=== PATIENT | male | born 1940 | race Caucasian/White ===

== ENCOUNTER 2022-10-03 17:15 | Inpatient (IN) | payer OTHER, MEDICARE ==
--- NOTE | 2022-10-03 18:01 | ED ---
General Adult HPI - General Chief complaint: Chest Pain Stated complaint: chest pain, SHOLA Time Seen by Provider: 10/03/22 17:21 Source: EMS Mode of arrival: EMS Limitations: no limitations - History of Present Illness Initial comments: Dictation was produced using [employer] dictation software. please excuse any grammatical, word or spelling errors. Chief Complaint: 82-year-old male presents emergency department for chest pain History of Present Illness: She is 82-year-old male past medical history of myocardial infarction. For the last several days he's been suffering from chest pain states it is a pressure with paresthesias to the left upper extremity. Not associated with diaphoresis. Been nauseated. Patient's been having cough and shortness of breath. When exposed to family was also been sick. Patient having nonproductive cough. Complains of some epigastric abdominal pain. Patient states that his symptoms remind him of a HI he suffered from several years ago though not as severe. Patient states that he does have mild pain at the bedside. The ROS documented in this emergency department record has been reviewed and confirmed by me. Those systems with pertinent positive or negative responses have been documented in the HPI. All other systems are other negative and/or noncontributory. PHYSICAL EXAM: General Impression: Alert and oriented x3, not in acute distress HEENT: Normocephalic atraumatic, extra-ocular movements intact, pupils equal and reactive to light bilaterally, mucous membranes moist. Cardiovascular: Heart regular rate and rhythm Chest: Able to complete full sentences, no retractions, no tachypnea Abdomen: abdomen soft, non-tender, non-distended, no organomegaly Musculoskeletal: Pulses present and equal in all extremities, no peripheral edema Motor: no focal deficits noted Neurological: CN II-XII grossly intact, no focal motor or sensory deficits noted Skin: Intact with no visualized rashes Psych: Normal affect and mood ED course: 82 y Old male presents emergency department for chest symptoms concerning for acute coronary syndrome. He does have respiratory infectious symptoms as well. Vital signs upon arrival are within acceptable limits. EKG shows no signs of obvious ischemia or infarction. We do not have an old EKG for comparison. Patient reported slight improvement of his chest pain with nitroglycerin. Nursing notes and chart review was performed EKG interpreted by me: Ventricular rate 80, sinus rhythm,. O2 39, QRS 106, QTC 473. No GA prolongation, no QTC prolongation, no ST or T-wave changes noted. Solitary biphasic T-wave in V2. Overall, this EKG is nonspecific Serial EKGs were performed showing dynamic changes. EKG performed at 6:[address] segment elevation HI in the anterior precordial leads. Code STEMI was paged. Case discussed with Dr. Nelson. Water Pump Servicer was activated. Patient did receive nitroglycerin and aspirin by prehospital providers. Laboratory evaluation obtained. CBC coag panel metabolic panel is unremarkable. Troponin is elevated 0.131. COVID-19 positive. Was pt. sent in by a medical professional or institution (, PA, SALES STRATEGY MANAGER, urgent care, hospital, or prison...) When possible be specific @ -No Did you speak to anyone other than the patient for history (EMS, parent, family, police, friend...)? What history was obtained from this source @ -EMS Did you review nursing and triage notes (agree or disagree)? Why? @ -I reviewed and agree with nursing and triage notes Were old charts reviewed (outside hosp., previous admission, EMS record, old EKG, old radiological studies, urgent care reports/EKG's, prison records)? Report findings @ -No old charts were reviewed Differential Diagnosis (chest pain, altered mental status, abdominal pain women, abdominal pain men, vaginal bleeding, weakness, fever, dyspnea, syncope, headache, dizziness, GI bleed, back pain, seizure, CVA, palpatations, mental health)? @ -Differential Chest Pain: Stable Angina, Unstable Angina, STEMI, NSTEMI Aortic Dissection, Pneumothorax, Musculoskeletal, Esophageal Spasm GERD, Cholecystitis, Pancreatitis, Zoster, this is not meant to be an all-inclusive list. EKG interpreted by me (3pts min.). @ -As above X-rays interpreted by me (1pt min.). @ -Chest x-ray shows bilateral patchy infiltrates CT interpreted by me (1pt min.). @ -None done U/S interpreted by me (1pt. min.). @ -None done What testing was considered but not performed or refused? (CT, X-rays, U/S, labs)? Why? @ -He was considered however patient's symptoms are atypical for pulmonary embolism or aortic dissection What meds were considered but not given or refused? Why? @ -None Did you discuss the management of the patient with other professionals (professionals i.e. DrBalbir, PA, SALES STRATEGY MANAGER, lab, RT, psych nurse, social media assistant, company accountant, teacher, security officer supervisor, social work case manager)? Give summary @ -Urologist, Dr. Nelson and hospitalist Dr. Gibbs Was smoking cessation discussed for >3mins.? @ -No Was critical care preformed (if so, how long)? @ -yes, , 33 minutes Were there social determinants of health that impacted care today? How? (Homelessness, low income, unemployed, alcoholism, drug addiction, transportation, low edu. Level, literacy, decrease access to med. care, group home, rehab)? @ -No Was there de-escalation of care discussed even if they declined (Discuss DNR or withdrawal of care, Hospice)? DNR status @ -No What co-morbidities impacted this encounter? (DM, HTN, Smoking, COPD, CAD, Cancer, CVA, ARF, Chemo, Hep., AIDS, mental health diagnosis, sleep apnea, morbid obesity)? @ -None Was patient admitted / discharged? Hospital course, mention meds given and route, prescriptions, significant lab abnormalities, going to OR and other pertinent info. @ -See above Undiagnosed new problem with uncertain prognosis? @ -No Drug Therapy requiring intensive monitoring for toxicity (Heparin, Nitro, Insulin, Cardizem)? @ -No Were any procedures done? @ -No Diagnosis/symptom? @ -1. STEMI, 2. COVID-19 Acute, or Chronic, or Acute on Chronic? @ -Acute Uncomplicated (without systemic symptoms) or Complicated (systemic symptoms)? @ - Complicated Side effects of treatment? @ -No Exacerbation, Progression, or Severe Exacerbation? @ -No Poses a threat to life or bodily function? How? (Chest pain, [place], HI, pneumonia, PE, COPD, DKA, ARF, appy, cholecystitis, CVA, Diverticulitis, Homicidal, Suicidal, threat to staff... and all critical care pts) @ -Yes - Related Data Allergies Allergy/AdvReac Type Severity Reaction Status Date / Time No Known Allergies Allergy Verified 10/03/22 17:27 Review of Systems ROS Statement: Those systems with pertinent positive or pertinent negative responses have been documented in the HPI. ROS Other: All systems not noted in ROS Statement are negative. Past Medical History Past Medical History: Diabetes Mellitus, Hypertension, Myocardial Infarction (HI) History of Any Multi-Drug Resistant Organisms: None Reported Past Surgical History: Orthopedic Surgery Past Psychological History: No Psychological Hx Reported, Depression, PTSD Smoking Status: Former smoker Past Alcohol Use History: None Reported Past Drug Use History: None Reported General Exam Limitations: no limitations Course Vital Signs 10/03/22 17:18 Temperature 97.9 F Pulse Rate 80 Respiratory 18 Rate Blood Pressure 175/76 O2 Sat by Pulse 95 Oximetry Medical Decision Making - Lab Data Result diagrams: 10/03/22 17:57 10/03/22 17:57 Lab Results 10/03/22 10/03/22 10/03/22 Range/Units 17:57 17:57 17:57 WBC 4.9 (3.8-10.6) k/uL RBC 4.16 L (4.30-5.90) m/uL Hgb 11.6 L (13.0-17.5) gm/dL Hct 35.1 L (39.0-53.0) % MCV 84.3 (80.0-100.0) fL MCH 28.0 (25.0-35.0) pg MCHC 33.2 (31.0-37.0) g/dL RDW 13.3 (11.5-15.5) % Plt Count 221 (150-450) k/uL MPV 8.5 Neutrophils % 60 % Lymphocytes % 31 % Monocytes % 6 % Eosinophils % 1 % Basophils % 0 % Neutrophils # 3.0 (1.3-7.7) k/uL Lymphocytes # 1.5 (1.0-4.8) k/uL Monocytes # 0.3 (0-1.0) k/uL Eosinophils # 0.0 (0-0.7) k/uL Basophils # 0.0 (0-0.2) k/uL PT 10.2 (9.0-12.0) sec INR 1.0 (<1.2) APTT 21.2 L (22.0-30.0) sec Sodium 135 L (137-145) mmol/L Potassium 3.7 (3.5-5.1) mmol/L Chloride 105 (98-107) mmol/L Carbon Dioxide 20 L (22-30) mmol/L Anion Gap 10 mmol/L BUN 18 (9-20) mg/dL Creatinine 1.09 (0.66-1.25) mg/dL Est GFR (CKD-EPI)AfAm 74 (>60 ml/min/1.73 sqM) Est GFR (CKD-EPI)NonAf 64 (>60 ml/min/1.73 sqM) Glucose 317 H (74-99) mg/dL Calcium 7.7 L (8.4-10.2) mg/dL Magnesium 1.4 L (1.6-2.3) mg/dL Total Bilirubin 0.4 (0.2-1.3) mg/dL AST 28 (17-59) U/L ALT 22 (4-49) U/L Alkaline Phosphatase 150 H (38-126) U/L Troponin I (0.000-0.034) ng/mL Total Protein 6.3 (6.3-8.2) g/dL Albumin 3.4 L (3.5-5.0) g/dL Influenza Type A (PCR) (Not Detectd) Influenza Type B (PCR) (Not Detectd) RSV (PCR) (Not Detectd) SARS-CoV-2 (PCR) (Not Detectd) 10/03/22 10/03/22 Range/Units 17:57 17:57 WBC (3.8-10.6) k/uL RBC (4.30-5.90) m/uL Hgb (13.0-17.5) gm/dL Hct (39.0-53.0) % MCV (80.0-100.0) fL MCH (25.0-35.0) pg MCHC (31.0-37.0) g/dL RDW (11.5-15.5) % Plt Count (150-450) k/uL MPV Neutrophils % % Lymphocytes % % Monocytes % % Eosinophils % % Basophils % % Neutrophils # (1.3-7.7) k/uL Lymphocytes # (1.0-4.8) k/uL Monocytes # (0-1.0) k/uL Eosinophils # (0-0.7) k/uL Basophils # (0-0.2) k/uL PT (9.0-12.0) sec INR (<1.2) APTT (22.0-30.0) sec Sodium (137-145) mmol/L Potassium (3.5-5.1) mmol/L Chloride (98-107) mmol/L Carbon Dioxide (22-30) mmol/L Anion Gap mmol/L BUN (9-20) mg/dL Creatinine (0.66-1.25) mg/dL Est GFR (CKD-EPI)AfAm (>60 ml/min/1.73 sqM) Est GFR (CKD-EPI)NonAf (>60 ml/min/1.73 sqM) Glucose (74-99) mg/dL Calcium (8.4-10.2) mg/dL Magnesium (1.6-2.3) mg/dL Total Bilirubin (0.2-1.3) mg/dL AST (17-59) U/L ALT (4-49) U/L Alkaline Phosphatase (38-126) U/L Troponin I 0.131 H* (0.000-0.034) ng/mL Total Protein (6.3-8.2) g/dL Albumin (3.5-5.0) g/dL Influenza Type A (PCR) Not Detected (Not Detectd) Influenza Type B (PCR) Not Detected (Not Detectd) RSV (PCR) Not Detected (Not Detectd) SARS-CoV-2 (PCR) Detected A (Not Detectd) Disposition Clinical Impression: STEMI (ST elevation myocardial infarction), COVID-19 Disposition: ADMITTED IP TO THIS HOSP Condition: Critical Referrals: [facility],Clinic [Primary Care Provider] - 1-2 days Decision Time: 19:03
[2022-10-03 18:12] LABS: Basophils % (A) 0 %; Eosinophils % (A) 1 %; HCT 35.1 % (39.0-53.0); HGB 11.6 gm/dL (13.0-17.5); Lymphocytes # (A) 1.5 k/uL (1.0-4.8); Lymphocytes % (A) 31 %; MCHC 33.2 g/dL (31.0-37.0); MCV 84.3 fL (80.0-100.0); Mean Platelet Volume 8.5; Monocytes # (A) 0.3 k/uL (0-1.0); Monocytes % (A) 6 %; Neutrophils % (A) 60 %; Platelet Count 221 k/uL (150-450); RBC 4.16 m/uL (4.30-5.90); RDW 13.3 % (11.5-15.5); WBC 4.9 k/uL (3.8-10.6)
[2022-10-03] MEDS ORDERED: ASPIRIN 81 MG PO STA (18:23)
[2022-10-03] MEDS ORDERED: NITROGLYCERIN SL TABS 0.4 MG TAB SUBLINGUAL STA (18:23)
[2022-10-03 18:24] LABS: Albumin 3.4 g/dL (3.5-5.0); Calcium 7.7 mg/dL (8.4-10.2); Magnesium 1.4 mg/dL (1.6-2.3); Potassium 3.7 mmol/L (3.5-5.1); Total Bilirubin 0.4 mg/dL (0.2-1.3); Total Protein 6.3 g/dL (6.3-8.2)
[2022-10-03 18:38] LABS: Partial Thromboplastin Time 21.2 sec (22.0-30.0); Prothrombin Time 10.2 sec (9.0-12.0)
[2022-10-03] MEDS ORDERED: HEPARIN SODIUM 1,000 UN/ML (10ML VL) IV PRN (18:42)
[2022-10-03] MEDS ORDERED: HEPARIN SODIUM 1,000 UN/ML (10ML VL) IV ONE (18:42)
[2022-10-03] MEDS ORDERED: HEPARIN SOD,PORK IN 0.45% NACL 25,000 UNIT in 0.45% NACL 1 250ML.BAG IV SCH (18:45)
--- NOTE | 2022-10-03 18:45 | XR ---
EXAMINATION TYPE: XR chest 2V DATE OF EXAM: 10/03/2022 COMPARISON: NONE HISTORY: Chest pain TECHNIQUE: 2 views FINDINGS: Heart is normal. There is some mild patchy interstitial and airspace infiltrate in the mid and lower lung rivas. No heart failure seen. There are no hilar masses. No pleural effusion. There a re chest leads. IMPRESSION: Mild bilateral patchy infiltrates. No heart failure.
[2022-10-03] MEDS ORDERED: NALOXONE 0.4 MG/ML 1 ML VIAL IV PRN (18:57)
[2022-10-03] MEDS ORDERED: VERAPAMIL 2.5 MG/ML 2 ML AMP ONE (19:15)
[2022-10-03] MEDS ORDERED: LIDOCAINE 2% (PF) 20 MG/ML 5 ML VIAL SQ ONE ×2 (19:18→19:19)
[2022-10-03] MEDS: MIDAZOLAM 2 MG/2 ML VIAL IV ONE ×2 (19:22→20:21)
[2022-10-03] MEDS ORDERED: VERAPAMIL SYRINGE (5 MG/10 ML) INTRAARTER ONE (19:22)
[2022-10-03] MEDS ORDERED: IV FLUID CONTINUATION 1,000 ML IV ONE (19:32)
[2022-10-03] MEDS: HEPARIN SODIUM 1,000 UN/ML (10ML VL) IV ONE ×4 (19:43→20:32)
[2022-10-03] MEDS ORDERED: NITROGLYCERIN 1000MCG/10ML SYRINGE INTRACORON ONE ×2 (20:00→20:18)
[2022-10-03] MEDS ORDERED: CLOPIDOGREL 75 MG TAB ONE (20:04)
[2022-10-03] MEDS ORDERED: CLOPIDOGREL 75 MG TAB PO ONE (20:05)
[2022-10-03] MEDS ORDERED: IOPAMIDOL-370 125ML BTL INJ ONE (20:15)
[2022-10-03] MEDS ORDERED: fentaNYL (PF) 50 MCG/ML 2 ML AMP ONE (20:22)
[2022-10-03] MEDS ORDERED: fentaNYL (PF) 50 MCG/ML 2 ML AMP IV ONE (20:23)
[2022-10-03] MEDS ORDERED: IOPAMIDOL-370 100ML BTL INJ ONE (20:35)
[2022-10-03] MEDS ORDERED: ZOLPIDEM 5 MG TAB PO PRN (20:58)
[2022-10-03] MEDS ORDERED: ATROPINE SULFATE 0.1 MG/ML 10ML SYRINGE IV PRN (20:58)
[2022-10-03] MEDS ORDERED: MAG HYDROX/AL HYDROX/SIMETH 30 ML CUP PO PRN (20:58)
[2022-10-03] MEDS ORDERED: RX INFO: IV CONTRAST WAS GIVEN 1 EACH MISC MISCELLANE PRN (20:58)
[2022-10-03] MEDS ORDERED: NITROGLYCERIN SL TABS 0.4 MG TAB SUBLINGUAL PRN (20:58)
--- NOTE | 2022-10-03 20:58 | P.PRCINT ---
Percutaneous Coronary Int. - Percutaneous Coronary Intervention Percutaneous Coronary Intervention: PROCEDURES PERFORMED: Bilateral coronary angiography, PCI proximal LAD with 2.25 x 18mm Xience LUCY, post dilated with a 2.25 NC balloon, balloon angioplasty diagonal 1 branch with a 2.0 balloon INDICATION: NSTEMI with ongoing chest pain PROCEDURE: After the risks, benefits and alternatives of the above mentioned procedure explained in detail with the patient, informed consent was obtained. Patient had already been taken to the catheterization lab and prepped and draped in usual fashion. A 6-[place] sheath had already been placed in the right radial artery. The culprit lesion appeared to be the LAD and therefore PCI of the LAD was recommended. A 6-[place] CLS 3.0 guide was used to engage the left main. A 0.014 BMW wire was advanced into the distal LAD and then a second 0.014 BMW wire was advanced into the distal diagonal branch. There was disease of the ostium of the diagonal branch and therefore decision was made to attempt balloon angioplasty and provisional stenting. Balloon angioplasty was performed of the LAD with a 2.0 x 12 mm balloon and then of the diagonal 1 branch with a 2.0 x 12 mm balloon. Next IVUS was performed which showed diffuse disease throughout the entire LAD with reference vessel 2.0 x 2.25 mm of the mid LAD. Left main minimal luminal area of 3.9 mm. Next a 2.25 x 18 mm Xience LUCY was placed from the origin of the LAD. There was decreased flow in the diagonal branch however given diffusely diseased and small caliber LAD risks of trying to open up diagonal branch felt to be greater than any benefit. Next a 2.25 x 12 mm noncompliant balloon was used to post dilate the stent. IVUS was performed with some difficulty advancing with all the way to the distal end of the stent secondary to calcium however had good stent apposition. The wire was pulled and final angiograms were performed. Preintervention there is 90% stenosis and MARYANN-3 flow and postintervention there is less than 10% stenosis with MARYANN 3 flow. Patient did have ongoing chest pain was was felt most likely related to the diagonal branch however given ongoing chest pain repeat angiography was performed of the RCA which showed more of a chronic PDA lesion and therefore deferred at this time. The right radial sheath was removed and a TR band was placed with hemostasis achieved. The patient tolerated the procedure well. Patient was transported back to the post catheterization holding area in stable condition. Conscious Sedation: Patient was monitored under the direct supervision of vision of myself for conscious sedation using Versed and fentanyl for a total duration of 56 minutes HEMODYNAMICS: Aorta: 156/76 SELECTIVE CORONARY ARTERIOGRAPHY: LEFT MAIN: The left main is a large caliber vessel which bifurcates into the LAD and circumflex. There is diffuse approximately 30-50% stenosis of the left main with minimal luminal area of 3.9 mm on IVUS. LEFT ANTERIOR DESCENDING CORONARY ARTERY: LAD is a large caliber vessel which wraps around to the apex. There is diffuse calcified proximal LAD 90% stenosis. Diagonal 1 and a small caliber and has a proximal 80% stenosis in his diffusely disease. LEFT CIRCUMFLEX CORONARY ARTERY: Left circumflex is a small caliber vessel. There is diffuse mild disease. There is a high OM1 branch which has a proximal 40-50% stenosis. RIGHT CORONARY ARTERY: The right coronary artery is a small caliber vessel which gives off a PDA and PLV branch and is the dominant vessel. There is a proximal PDA 70-80% stenosis. FINAL IMPRESSION: 1. CAD as described above including left main 30-50% with MLA 3.9 mm, proximal LAD 90% stenosis, diagonal one 80% stenosis, OM1 40-50% stenosis, PDA 70-80% stenosis 2. S/p PCI proximal LAD with 2.25 x 18mm Xience LUCY, post dilated with a 2.25 NC balloon, balloon angioplasty diagonal 1 branch with a 2.0 balloon PLAN: 1. Aggressive risk factor modification per most recent ACC/AHA guidelines. 2. Continue dual antiplatelets with aspirin and Plavix for 12 months.
[2022-10-03 21:09] LABS: Glucose,Whole Blood 311 mg/dL (70-110)
[2022-10-03] MEDS ORDERED: lisinopriL 10 MG TAB PO STA (22:55)
[2022-10-03] MEDS: SODIUM CHLORIDE 0.9% 1,000 ML IV SCH (23:01)
--- NOTE | 2022-10-04 00:41 | P.HPIM ---
History of Present Illness H&P Date: 10/03/22 The patient is an 82-year-old male with a PMH of type II DM, hypertension, hyperlipidemia who had presented to the emergency room with complaints of chest discomfort. The patient reported that he had been having intermittent substernal pressure-like chest discomfort with radiation to his arms over the past 4-5 days. In the emergency room, he was noted to have ongoing chest discomfort with a dynamic EKG changes. The case was discussed by the ED physician with cardiology water conservation specialist who recommended abdomen code STEMI. The patient was subsequently taken to the [facility] where he underwent PCI to p roximal LAD with a LUCY. The patient was seen postoperatively. He reported resolution of his chest discomfort. The patient also stated that over the past 1 week, he has been experiencing cough productive of whitish phlegm and that his daughter had also been sick with similar symptoms. Denied fever or chills. Laboratory evaluation in the emergency room was remarkable for COVID positive, troponin and 0.131, magnesium 1.4, glucose 317. Chest x-ray revealed mild bilateral patchy infiltrates. Review of systems: Pertinent positives and negatives as discussed in HPI, a complete review of systems was performed and all other systems are negative. Physical examination: General: non toxic, no distress, appears at stated age, normal weight Derm: no unusual rashes/lesions, warm Head: atraumatic, normocephalic, symmetric Eyes: EOMI, no lid lag, anicteric sclera, pupils equal round reactive to light ENT: Nose and ears atraumatic Neck: No cervical lymphadenopathy, trachea midline, supple Mouth: no lip lesion, mucus membranes moist Cardiovascular: S1S2 reg, no murmur, positive dorsalis pedis pulse bilateral, no edema Lungs: CTA bilateral, no rhonchi, no rales, no accessory muscle use Abdominal: soft, nontender to palpation, no guarding Ext: muscle strength 5 out of 5 in all 4 extremities grossly, no gross muscle atrophy, no contractures, right wrist TR band in place Neuro: CN II-XI grossly intact, no gross focal neuro deficits Psych: Alert, oriented, appropriate affect Assessment/plan STEMI status post PCI to LAD -Cardiology recommendations appreciated -Continue with aspirin and Plavix -Cardiac monitoring Hypomagnesemia -Replace and monitor COVID-19 pneumonia -Not requiring supplemental oxygen at this time -Monitor for now Chronic conditions: Type II DM, hypertension, HLD -Insulin sliding scale blood glucose monitoring -Continue with home meds DVT prophylaxis -Heparin subcu The patient is admitted with an anticipated greater than 2 midnight stay for evaluation of STEMI CODE STATUS: Full Code Discussed with: Patient Anticipated discharge date: 2-[address]: Home Past Medical History Past Medical History: CVA/TIA, Diabetes Mellitus, Hypertension, Myocardial Infarction ([place]) Additional Past Medical History / Comment(s): Stroke in December of 2021 Last Myocardial Infarction Date:: 10/03/22 History of Any Multi-Drug Resistant Organisms: None Reported Past Surgical History: Orthopedic Surgery Additional Past Surgical History / Comment(s): Urethral surgery-unsure of date Past Anesthesia/Blood Transfusion Reactions: No Reported Reaction Past Psychological History: No Psychological Hx Reported, Depression, PTSD Smoking Status: Former smoker Past Alcohol Use History: None Reported Past Drug Use History: None Reported - Past Family History Father Family Medical History: Hypertension Medications and Allergies Home Medications Medication Instructions Recorded Confirmed Type Aspirin [[place] Aspirin EC] 81 mg PO DAILY 10/03/22 10/03/22 History Atorvastatin Calcium [Lipitor] 80 mg PO HS 10/03/22 10/03/22 History Carboxymethylcellulose Sodium 1 drop BOTH EYES QID 10/03/22 10/03/22 History [Thera Tears] DULoxetine HCL [Cymbalta] 30 mg PO DAILY 10/03/22 10/03/22 History Erythromycin Ophth Oint (1 gm) 1 applic TOPICAL HS 10/03/22 10/03/22 History [Ilotycin Ophth Oint (1 gm)] Finasteride [Proscar] 5 mg PO DAILY 10/03/22 10/03/22 History Glimepiride [Amaryl] 1 mg PO DAILY 10/03/22 10/03/22 History Insulin Glargine,Hum.rec.anlog 15 units SQ DAILY 10/03/22 10/03/22 History [Insulin Glargine Solostar] Magnesium Oxide 400 mg PO DAILY 10/03/22 10/03/22 History Metoprolol Succinate [Toprol XL] 100 mg PO DAILY 10/03/22 10/03/22 History Omeprazole [PriLOSEC] 20 mg PO DAILY 10/03/22 10/03/22 History Sennosides/Docusate Sodium [Senna 1 tab PO DAILY PRN 10/03/22 10/03/22 History Plus 8.6-50 mg Tablet] Tamsulosin HCl [Flomax] 0.8 mg PO W/SUPPER 10/03/22 10/03/22 History glipiZIDE [Glucotrol] 10 mg PO DAILY 10/03/22 10/03/22 History lisinopriL [Zestril] 10 mg PO DAILY 10/03/22 10/03/22 History metFORMIN HCL 1,000 mg PO BID 10/03/22 10/03/22 History Allergies Allergy/AdvReac Type Severity Reaction Status Date / Time No Known Allergies Allergy Verified 10/03/22 17:27 Physical Exam Vitals: Vital Signs Temp Pulse Resp BP Pulse Ox 10/04/22 00:00 97.4 F L 77 26 H 131/104 97 10/03/22 23:30 79 18 173/85 96 10/03/22 23:00 92 18 174/74 96 10/03/22 22:30 80 89 H 165/80 95 10/03/22 22:00 77 19 162/79 97 10/03/22 21:30 98.0 F 75 15 163/87 95 10/03/22 19:00 83 20 172/77 96 10/03/22 18:30 79 16 159/74 94 L 10/03/22 18:00 81 19 158/67 92 L 10/03/22 17:37 81 30 H 175/76 94 L 10/03/22 17:18 97.9 F 80 18 175/76 95 Intake and Output 10/03/22 10/03/22 10/04/22 14:59 22:59 06:59 Intake Total 160 40 Output Total 300 200 Balance -140 -160 Intake: IV 40 40 Sodium Chloride 0.9% 1, 40 40 000 ml @ 20 mls/hr IV . Q24H ON LICENSE OF [facility] Rx#:[id number] Oral 120 Output: Urine 300 200 Other: Voiding Method Urinal Urinal # Voids 1 1 Weight 70.307 kg Results CBC & Chem 7: 10/03/22 17:57 10/03/22 17:57 Labs: Abnormal Lab Results - Last 24 Hours (Table) 10/03/22 10/03/22 10/03/22 Range/Units 17:57 17:57 17:57 RBC 4.16 L (4.30-5.90) m/uL Hgb 11.6 L (13.0-17.5) gm/dL Hct 35.1 L (39.0-53.0) % APTT 21.2 L (22.0-30.0) sec Sodium 135 L (137-145) mmol/L Carbon Dioxide 20 L (22-30) mmol/L Glucose 317 H (74-99) mg/dL POC Glucose (mg/dL) (70-110) mg/dL Calcium 7.7 L (8.4-10.2) mg/dL Magnesium 1.4 L (1.6-2.3) mg/dL Alkaline Phosphatase 150 H (38-126) U/L Troponin I (0.000-0.034) ng/mL Albumin 3.4 L (3.5-5.0) g/dL SARS-CoV-2 (PCR) (Not Detectd) 10/03/22 10/03/22 10/03/22 Range/Units 17:57 17:57 21:08 RBC (4.30-5.90) m/uL Hgb (13.0-17.5) gm/dL Hct (39.0-53.0) % APTT (22.0-30.0) sec Sodium (137-145) mmol/L Carbon Dioxide (22-30) mmol/L Glucose (74-99) mg/dL POC Glucose (mg/dL) 311 H (70-110) mg/dL Calcium (8.4-10.2) mg/dL Magnesium (1.6-2.3) mg/dL Alkaline Phosphatase (38-126) U/L Troponin I 0.131 H* (0.000-0.034) ng/mL Albumin (3.5-5.0) g/dL SARS-CoV-2 (PCR) Detected A (Not Detectd) Thrombosis Risk Factor Assmnt - Choose All That Apply Each Factor Represents 1 point: Acute [place] Each Risk Factor Represents 3 Points: Age 75 years or older Thrombosis Risk Factor Assessment Total Risk Factor Score: 4 Thrombosis Risk Factor Assessment Level: Moderate Risk
[2022-10-04] MEDS: MAGNESIUM SULFATE-D5W PMX 1 GM in DEXTROSE/WATER 1 100ML.BAG IVPB SCH ×2 (02:27→03:28)
[2022-10-04 06:37] LABS: Glucose,Whole Blood 337 mg/dL (70-110)
[2022-10-04] MEDS: INSULIN ASPART (NovoLOG) 100 UNIT/ML VIAL SQ SCH ×4 (06:41→19:54)
[2022-10-04] MEDS ORDERED: lisinopriL 10 MG TAB PO SCH (09:00)
[2022-10-04] MEDS: CLOPIDOGREL 75 MG TAB PO SCH (09:08)
[2022-10-04] MEDS: FINASTERIDE 5 MG TAB PO SCH (09:08)
[2022-10-04] MEDS: INSULIN DETEMIR (LEVEMIR) 100 UNIT/ML SYR SQ SCH (09:08)
[2022-10-04] MEDS: ASPIRIN 81 MG PO SCH (09:08)
[2022-10-04] MEDS: DULoxetine HCL 30 MG CAPSULE.DR PO SCH (09:08)
[2022-10-04] MEDS: METOPROLOL SUCCINATE (ER) 50 MG TAB.ER.24H PO SCH ×2 (09:10→19:55)
[2022-10-04] MEDS: PANTOPRAZOLE 40 MG TABLET PO SCH (09:10)
--- NOTE | 2022-10-04 11:16 | P.PN ---
Subjective Progress Note Date: 10/04/22 Patient is an 82-year-old male with DM II, hypertension, hyperlipidemia who h emergency room with complaints of chest discomfort. In the emergency room, he was noted to have ongoing chest discomfort with a dynamic EKG changes. A CODE STEMI was activated and the patient was taken to [facility] where he underwent PCI to proximal LAD with a LUCY. Laboratory evaluation in the emergency room was mack rkable for COVID positive, troponin and 0.131, magnesium 1.4, glucose 317. Chest x-ray revealed mild bilateral patchy infiltrates. He was admitted to the ICU after stent placement. Patient seen and examined at bedside. He is now chesy pain free. He has no unusual shortness of breaht. He denies any nausea or vomiting. He is worried that his daughter also has covid and I encouraged him to get her tested. General: ill appearing, no distress, appears at stated age Derm: warm, dry Head: atraumatic, normocephalic, symmetric Eyes: EOMI, no lid lag, anicteric sclera Mouth: no lip lesion, mucus membranes moist Cardiovascular: S1S2 reg, no murmur, positive posterior tibial pulse bilateral, Lungs: Decreased bs bilateral, no rhonchi, no rales , no accessory muscle use Abdominal: soft, nontender to palpation, no guarding, no appreciable organomegaly Ext: no gross muscle atrophy, no edema, no contractures Neuro: CN II-XI grossly intact, no focal neuro deficits Psych: Alert, oriented, appropriate affect Assessment/plan: STEMI status post PCI to LAD -Cardiology recommendations appreciated -ASA, plavix, statin - await echo DM 2 with hyperglycemia - SSI - resume levemir - hold metformin,amaryl, glucotrol - follow BS - check A1C Hypomagnesemia -Replace and monitor COVID-19 pneumonia -Not requiring supplemental oxygen at this time -Monitor for now Chronic conditions: hypertension, HLD - metoprolol, lisinopril, follow BP DVT prophylaxis: lovenox Discussed with: patient, nursing Anticipated discharge: pending clinical course Anticipated discharge place: pending clinical course A total of 35 minutes was spent on the care of this complex patient more than 50% of the time was spent in counseling and care coordination. Objective - Vital Signs Vital signs: Vital Signs Temp 98.2 F 10/04/22 04:00 Pulse 63 10/04/22 07:00 Resp 16 10/04/22 07:00 BP 129/55 10/04/22 07:00 Pulse Ox 93 L 10/04/22 07:00 FiO2 Intake & Output 10/03/22 10/04/22 10/04/22 18:59 06:59 18:59 Intake Total 520 20 Output Total 800 0 Balance -280 20 Weight 70.307 kg 79 kg Intake: IV 200 20 Sodium Chloride 0.9% 1, 200 20 000 ml @ 20 mls/hr IV . Q24H [facility] Rx#:[id number] Intake, IV Titration 200 Amount Magnesium Sulfate-D5w Pmx 200 1 gm In Dextrose/Water 1 100ml.bag @ 100 mls/hr IVPB Q1H [facility] Rx#: [id number] Oral 120 Output: Urine 800 0 Other: Voiding Method Urinal # Voids 1 - Labs CBC & Chem 7: 10/03/22 17:57 10/04/22 05:45 Labs: Abnormal Lab Results - Last 24 Hours (Table) 10/03/22 10/03/22 10/03/22 Range/Units 17:57 17:57 17:57 RBC 4.16 L (4.30-5.90) m/uL Hgb 11.6 L (13.0-17.5) gm/dL Hct 35.1 L (39.0-53.0) % APTT 21.2 L (22.0-30.0) sec Sodium 135 L (137-145) mmol/L Chloride (98-107) mmol/L Carbon Dioxide 20 L (22-30) mmol/L Glucose 317 H (74-99) mg/dL POC Glucose (mg/dL) (70-110) mg/dL Calcium 7.7 L (8.4-10.2) mg/dL Magnesium 1.4 L (1.6-2.3) mg/dL Alkaline Phosphatase 150 H (38-126) U/L Troponin I (0.000-0.034) ng/mL Albumin 3.4 L (3.5-5.0) g/dL SARS-CoV-2 (PCR) (Not Detectd) 10/03/22 10/03/22 10/03/22 Range/Units 17:57 17:57 21:08 RBC (4.30-5.90) m/uL Hgb (13.0-17.5) gm/dL Hct (39.0-53.0) % APTT (22.0-30.0) sec Sodium (137-145) mmol/L Chloride (98-107) mmol/L Carbon Dioxide (22-30) mmol/L Glucose (74-99) mg/dL POC Glucose (mg/dL) 311 H (70-110) mg/dL Calcium (8.4-10.2) mg/dL Magnesium (1.6-2.3) mg/dL Alkaline Phosphatase (38-126) U/L Troponin I 0.131 H* (0.000-0.034) ng/mL Albumin (3.5-5.0) g/dL SARS-CoV-2 (PCR) Detected A (Not Detectd) 10/04/22 10/04/22 Range/Units 05:45 06:36 RBC (4.30-5.90) m/uL Hgb (13.0-17.5) gm/dL Hct (39.0-53.0) % APTT (22.0-30.0) sec Sodium 133 L (137-145) mmol/L Chloride 108 H (98-107) mmol/L Carbon Dioxide 19 L (22-30) mmol/L Glucose 303 H (74-99) mg/dL POC Glucose (mg/dL) 337 H (70-110) mg/dL Calcium 7.0 L (8.4-10.2) mg/dL Magnesium (1.6-2.3) mg/dL Alkaline Phosphatase (38-126) U/L Troponin I (0.000-0.034) ng/mL Albumin (3.5-5.0) g/dL SARS-CoV-2 (PCR) (Not Detectd)
--- NOTE | 2022-10-04 11:39 | PN ---
PROGRESS NOTE SUBJECTIVE: This is an 82-year-old gentleman who is admitted to hospital with multiple medical problems including type 2 diabetes, hypertension, dyslipidemia, who presented to us with chest pain for the last 4-5 days. ER physician has made a diagnosis of STEMI and STEMI Team was alerted. I met the patient in the label pinker and he underwent cardiac catheterization with angioplasty of the proximal LAD with a drug-eluting stent. He also has a tight lesion in the PDA, has small caliber and heavily calcified vessels. This morning, he appears comfortable at rest, stable hemodynamically. OBJECTIVE: VITAL SIGNS: Heart rate is 63 beats, blood pressure is 121/55, and respiratory rate 16. CHEST: Reveals good air entry bilaterally. HEART: Reveals first and second heart sounds. No gallop. EXTREMITIES: Did not reveal any edema. Peripheral pulses are palpable. He tested positive for COVID. Lab showed a potassium of 4, creatinine is 1.1. MEDICATIONS: Patient is currently on, 1. Aspirin. 2. Plavix. 3. Insulin. 4. Toprol. 5. Zestril. ASSESSMENT: Acute coronary syndrome, status post catheterization and angioplasty of the LAD. PLAN: The patient is on optimal medical therapy. I will check an echocardiogram on him. We can transfer him out of ICU later this afternoon. MMODL / IJN: [id number] /
[2022-10-04 11:52] LABS: Glucose,Whole Blood 327 mg/dL (70-110)
--- NOTE | 2022-10-04 11:57 | CONS ---
CONSULTATION CHIEF COMPLAINT: Chest pain. HISTORY OF PRESENT ILLNESS: This is an 82-year-old gentleman with multiple medical problems, including coronary artery disease, hypertension, diabetes, dyslipidemia, who has severe hearing impairment, presented to the hospital with chest pain. The chest discomfort has been going on for the last 4 to 5 days. It is substernal, pressure-like sensation that radiates to both upper extremities. He had an EKG that showed sinus rhythm with poor R- wave progression, left axis deviation, and evidence of prior anteroseptal myocardial infarction. Admission troponin was 0.1, hemoglobin was 11.6. He tested positive for coronavirus. On his initial presentation, emergency room doctor has made a diagnosis of STEMI and STEMI team was alerted and I met the patient for the first time in the label stamper. The patient appears comfortable at rest and was hemodynamically stable. The patient was also complaining of cough and shortness of breath. PAST MEDICAL HISTORY: Significant for hypertension, diabetes, dyslipidemia. MEDICATIONS: Include insulin, aspirin, Flomax, Toprol, Zestril, metformin, Amaryl, Cymbalta, Lipitor. ALLERGIES: There are no known drug allergies. FAMILY HISTORY AND SOCIAL HISTORY: Negative for premature coronary artery disease and smoking. REVIEW OF SYSTEMS: A review of systems has been performed. Pertinent as documented. PHYSICAL EXAMINATION: VITAL SIGNS: On exam, heart rate is 63 beats per minute, blood pressure is 130/55, respiratory rate is 16. CHEST: Reveals good air entry bilaterally. HEART: Reveals first and second heart sounds. No gallop. Has a systolic murmur at the left lower sternal border. ABDOMEN: Soft. EXTREMITIES: Exam of extremities revealed mild edema. LABORATORY DATA: Labs have been reviewed. EKG is as described above. ASSESSMENT: 1. Chest pain, rule out significant obstructive coronary artery disease. 2. Coronavirus infection. PLAN: The patient does not have ST-segment elevation NH. He will undergo emergent cardiac catheterization and revascularization if necessary. We will obtain a 2D echo in the morning. Primary will manage his positive coronavirus test. MMODL / IJN: [id number] /
--- NOTE | 2022-10-04 11:57 | CC ---
CARDIAC CATHETERIZATION REPORT INDICATION: Acute coronary syndrome. DESCRIPTION OF PROCEDURE: After obtaining informed consent, left heart catheterization and coronary angiogram were performed via the right radial artery. The patient received moderate conscious sedation. Total sedation time was 22 minutes. He received 5 mg of verapamil and had already received heparin. Right radial artery access was obtained using modified Seldinger technique, and catheters and wires were manipulated into the ascending aorta under fluoroscopic guidance. Hemodynamics were also obtained. FINDINGS: Hemodynamics: Left ventricular end-diastolic pressure is 18 mm. There is no significant gradient across the aortic valve. Left ventriculogram: Left ventriculogram was not performed. Angiographic data: 1. Right coronary artery: Right coronary artery is a small caliber vessel, appears diffusely diseased. The PDA has a long segment of narrowing. At its worst, it seems to be an 80% to 90% stenosis. 2. Left main coronary artery appears calcified and divides into LAD and circumflex coronary artery. There is a lesion in the LAD in the proximal portion, that also involved the ostium of the diagonal branch, but the vessel is diffusely diseased and a fairly small-caliber vessel. CONCLUSIONS: 1. Long segment of stenosis involving LAD. 2. Chronic lesion within the PDA. 3. Calcified and diffusely diseased vessels. PLAN: The patient will undergo angioplasty with stent placement of LAD. MMODL / IJN: [id number] /
[2022-10-04] MEDS: ENOXAPARIN 40 MG/0.4 ML SYRINGE SQ SCH (12:02)
--- NOTE | 2022-10-04 13:27 | CA ---
Transthoracic Echo Report Name: Gregg Fraser Age: 82 Gender: M : 1940 Exam Date: 10/04/2022 08:31 Exam Location: [facility] Ht (in): 64 Wt (lb): 150 Ordering Physician: Bear Nelson MD ([id number]) Attending/Referring Phys: Omar CHEN Radiation Oncologist Pauly Feldman RDCS Procedure CPT: Indications: stemi Cardiac Hx: PT is Covid Positive. Technical Quality: Contrast 1: Total Dose (mL): Contrast 2: N/A Total Dose (mL): MEASUREMENTS (Male / Female) Normal Values 2D ECHO LV Diastolic Diameter PLAX 4.2 cm 4.2 - 5.9 / 3.9 - 5.3 cm LV Systolic Diameter PLAX 3.5 cm IVS Diastolic Thickness 1.2 cm 0.6 - 1.0 / 0.6 - 0.9 cm LVPW Diastolic Thickness 1.3 cm 0.6 - 1.0 / 0.6 - 0.9 cm LV Relative Wall Thickness 0.6 RV Internal Dim ED PLAX 3.2 cm FINDINGS Left Ventricle Mildly increased septal wall thickness. Left ventricular ejection fraction is estimated at 55 %. Left ventricular cavity size normal. Right Ventricle Normal right ventricular size and function. Right Atrium Normal right atrial size. Left Atrium Normal left atrial size. Mitral Valve Structurally normal mitral valve. Mild mitral regurgitation. Aortic Valve Trileaflet aortic valve. Tricuspid Valve Structurally normal tricuspid valve. Trace to mild tricuspid regurgitation. Pulmonic Valve Structurally normal pulmonic valve. Pericardium Normal pericardium. Aorta Normal size aortic root and proximal ascending aorta. CONCLUSIONS Normal LV systolic function Mild mitral regurgitation Anterior wall is hypokinetic Previewed by: Dr. Bear Nelson MD (Electronically Signed) Final Date: 04 October 2022 13:26
[2022-10-04 14:17] VITALS: BMI 29.0
[2022-10-04 16:24] LABS: Glucose,Whole Blood 129 mg/dL (70-110)
[2022-10-04] MEDS ORDERED: lisinopriL 10 MG TAB PO STA (16:51)
[2022-10-04] MEDS: TAMSULOSIN 0.4 MG CAP.ER.24H PO SCH (17:32)
[2022-10-04] MEDS: SODIUM CHLORIDE 0.9% 1,000 ML IV SCH (19:43)
[2022-10-04 19:52] LABS: Glucose,Whole Blood 171 mg/dL (70-110)
[2022-10-05 06:04] LABS: HCT 31.6 % (39.0-53.0); HGB 10.2 gm/dL (13.0-17.5); MCH 27.4 pg (25.0-35.0); MCHC 32.4 g/dL (31.0-37.0); MCV 84.5 fL (80.0-100.0); Mean Platelet Volume 8.1; Platelet Count 236 k/uL (150-450); RBC 3.74 m/uL (4.30-5.90); RDW 13.1 % (11.5-15.5); WBC 4.5 k/uL (3.8-10.6)
[2022-10-05 06:17] LABS: Calcium 7.5 mg/dL (8.4-10.2); Potassium 4.4 mmol/L (3.5-5.1)
[2022-10-05 06:28] LABS: Glucose,Whole Blood 109 mg/dL (70-110)
[2022-10-05] MEDS: PANTOPRAZOLE 40 MG TABLET PO SCH (06:34)
[2022-10-05] MEDS: INSULIN ASPART (NovoLOG) 100 UNIT/ML VIAL SQ SCH ×4 (06:34→20:10)
[2022-10-05] MEDS: lisinopriL 20 MG TAB PO SCH (09:25)
[2022-10-05] MEDS: ENOXAPARIN 40 MG/0.4 ML SYRINGE SQ SCH (09:25)
[2022-10-05] MEDS: INSULIN DETEMIR (LEVEMIR) 100 UNIT/ML SYR SQ SCH (09:25)
[2022-10-05] MEDS: ASPIRIN 81 MG PO SCH (09:25)
[2022-10-05] MEDS: CLOPIDOGREL 75 MG TAB PO SCH (09:25)
[2022-10-05] MEDS: METOPROLOL SUCCINATE (ER) 50 MG TAB.ER.24H PO SCH ×2 (09:26→20:10)
[2022-10-05] MEDS: DULoxetine HCL 30 MG CAPSULE.DR PO SCH (09:26)
[2022-10-05] MEDS: FINASTERIDE 5 MG TAB PO SCH (09:26)
--- NOTE | 2022-10-05 11:12 | P.PN ---
Subjective Progress Note Date: 10/05/22 Patient is an 82-year-old male with DM II, hypertension, hyperlipidemia who h emergency room with complaints of chest discomfort. In the emergency room, he was noted to have ongoing chest discomfort with a dynamic EKG changes. A CODE STEMI was activated and the patient was taken to [facility] where he underwent PCI to proximal LAD with a LUCY. Laboratory evaluation in the emergency room was mack rkable for COVID positive, troponin and 0.131, magnesium 1.4, glucose 317. Chest x-ray revealed mild bilateral patchy infiltrates. He was admitted to the ICU after stent placement. ECHO with EF 55%. He continued to be stable on room air. Patient seen and examined at bedside. He is chest pain free, still with cough, no shortness of breath, no nausea. General: non toxic, no distress, appears at stated age Derm: warm, dry Head: atraumatic, normocephalic, symmetric Eyes: EOMI, no lid lag, anicteric sclera Mouth: no lip lesion, mucus membranes moist Cardiovascular: S1S2 reg, no murmur, positive posterior tibial pulse bilateral, Lungs: Decreased bs bilateral, no rhonchi, no rales , no accessory muscle use Abdominal: soft, nontender to palpation, no guarding, no appreciable organomegaly Ext: no gross muscle atrophy, no edema, no contractures Neuro: CN II-XI grossly intact, no focal neuro deficits Psych: Alert, oriented, appropriate affect Assessment/plan: STEMI status post PCI to LAD -Cardiology recommendations appreciated -ASA, plavix, statin - echo with preserved EF DM 2 with hyperglycemia - BS reviewed max in 24 hours is ~171 - SSI - levemir - hold metformin,amaryl, glucotrol - follow BS - check A1C Hypomagnesemia, resolved COVID-19 pneumonia -Not requiring supplemental oxygen at this time -Monitor for now Chronic conditions: hypertension, HLD - metoprolol, lisinopril, follow BP DVT prophylaxis: lovenox Discussed with: patient, nursing Anticipated discharge: pending clinical course Anticipated discharge place: pending clinical course A total of 35 minutes was spent on the care of this complex patient more than 50% of the time was spent in counseling and care coordination. Objective - Vital Signs Vital signs: Vital Signs Temp 98.0 F 10/05/22 04:00 Pulse 63 01/15/23 04:00 Resp 14 10/05/22 04:00 BP 114/58 10/05/22 04:00 Pulse Ox 100 10/05/22 04:00 FiO2 Intake & Output 10/04/22 10/05/22 10/05/22 18:59 06:59 18:59 Intake Total 1790 240 Output Total 1000 300 Balance 790 -60 Weight 79 kg 78.6 kg Intake: IV 240 Sodium Chloride 0.9% 1, 240 000 ml @ 20 mls/hr IV . Q24H [facility] Rx#:[id number] Oral 1550 240 Output: Urine 1000 300 Other: Voiding Method Urinal Toilet Urinal # Voids 1 1 - Labs CBC & Chem 7: 10/05/22 05:35 10/05/22 05:35 Labs: Abnormal Lab Results - Last 24 Hours (Table) 10/04/22 10/04/22 10/04/22 Range/Units 11:50 16:23 19:51 RBC (4.30-5.90) m/uL Hgb (13.0-17.5) gm/dL Hct (39.0-53.0) % Sodium (137-145) mmol/L Chloride (98-107) mmol/L Carbon Dioxide (22-30) mmol/L Creatinine (0.66-1.25) mg/dL POC Glucose (mg/dL) 327 H 129 H 171 H (70-110) mg/dL Calcium (8.4-10.2) mg/dL 10/05/22 10/05/22 Range/Units 05:35 05:35 RBC 3.74 L (4.30-5.90) m/uL Hgb 10.2 L (13.0-17.5) gm/dL Hct 31.6 L (39.0-53.0) % Sodium 132 L (137-145) mmol/L Chloride 108 H (98-107) mmol/L Carbon Dioxide 21 L (22-30) mmol/L Creatinine 1.27 H (0.66-1.25) mg/dL POC Glucose (mg/dL) (70-110) mg/dL Calcium 7.5 L (8.4-10.2) mg/dL
[2022-10-05 11:43] LABS: Glucose,Whole Blood 225 mg/dL (70-110)
[2022-10-05 17:33] LABS: Glucose,Whole Blood 220 mg/dL (70-110)
[2022-10-05] MEDS: TAMSULOSIN 0.4 MG CAP.ER.24H PO SCH (17:42)
--- NOTE | 2022-10-05 19:25 | PN ---
PROGRESS NOTE SUBJECTIVE: Gregg is an 82-year-old gentleman that presented to hospital with acute coronary syndrome and underwent cardiac catheterization and angioplasty of LAD. He has severe hearing impairment, but is free of symptoms. OBJECTIVE: VITAL SIGNS: Afebrile, heart rate is 63 beats per minute, blood pressure 114/58, respiratory rate is 18, O2 saturation is 100% on room air. NECK: There is no jugular venous distention. CHEST: Reveals good air entry bilaterally. HEART: Reveals first and second heart sounds. No gallop. ABDOMEN: Soft. EXTREMITIES: Did not reveal any edema. Peripheral pulses are felt. LABORATORY DATA: Labs show a hemoglobin of 10, potassium is 4.4, creatinine is 1.2. ASSESSMENT: Acute coronary syndrome, status post catheterization and angioplasty of the LAD. PLAN: The patient will continue the aspirin, Plavix, Zestril, Toprol-XL, and hopefully home tomorrow. He has a lesion in the PDA that we are going to manage medically at this time. MMODL / IJN: [id number] /
[2022-10-05] MEDS: SODIUM CHLORIDE 0.9% 1,000 ML IV SCH (19:32)
[2022-10-05 19:38] LABS: Glucose,Whole Blood 279 mg/dL (70-110)
[2022-10-06 06:09] LABS: HCT 31.1 % (39.0-53.0); HGB 10.1 gm/dL (13.0-17.5); MCH 27.1 pg (25.0-35.0); MCHC 32.5 g/dL (31.0-37.0); MCV 83.4 fL (80.0-100.0); Mean Platelet Volume 8.1; Platelet Count 254 k/uL (150-450); RBC 3.72 m/uL (4.30-5.90); RDW 13.1 % (11.5-15.5)
[2022-10-06 06:21] LABS: Glucose,Whole Blood 124 mg/dL (70-110)
[2022-10-06 06:23] LABS: Calcium 7.7 mg/dL (8.4-10.2); Potassium 4.9 mmol/L (3.5-5.1)
[2022-10-06] MEDS: INSULIN ASPART (NovoLOG) 100 UNIT/ML VIAL SQ SCH ×4 (06:24→20:15)
[2022-10-06] MEDS: PANTOPRAZOLE 40 MG TABLET PO SCH (06:26)
--- NOTE | 2022-10-06 07:52 | P.PN ---
Progress Note - Text Progress Note Date: 10/06/22 This is an 82-year-old gentleman who was admitted to the hospital with acute coronary syndrome. He underwent a heart catheterization and stenting of the LAD and he was found to have nonobstructive disease involving the RCA and LCx. October [id number] The patient was seen and evaluated this morning. He remains asymptomatic. He remains hemodynamics stable. He is on dual antiplatelet therapy and statin. He is tested positive for cold that. From a cardiovascular standpoint of view, we will continue the current medical regimen. The patient can be transferred into the third floor.
[2022-10-06] MEDS: ENOXAPARIN 40 MG/0.4 ML SYRINGE SQ SCH (08:47)
[2022-10-06] MEDS: CLOPIDOGREL 75 MG TAB PO SCH (08:47)
[2022-10-06] MEDS: ASPIRIN 81 MG PO SCH (08:47)
[2022-10-06] MEDS: DULoxetine HCL 30 MG CAPSULE.DR PO SCH (08:47)
[2022-10-06] MEDS: lisinopriL 20 MG TAB PO SCH (08:47)
[2022-10-06] MEDS: METOPROLOL SUCCINATE (ER) 50 MG TAB.ER.24H PO SCH ×2 (08:47→20:42)
[2022-10-06] MEDS: FINASTERIDE 5 MG TAB PO SCH (08:48)
[2022-10-06] MEDS: INSULIN DETEMIR (LEVEMIR) 100 UNIT/ML SYR SQ SCH (08:48)
[2022-10-06] MEDS: polyethylene glycoL 3350 17 GM POWD.PACK PO SCH (10:13)
--- NOTE | 2022-10-06 10:15 | P.NPCON ---
History of Present Illness - Reason for Consult acute renal failure - History of Present Illness Patient is an 82-year-old male with history of type 2 diabetes, hypertension, hyperlipidemia who was admitted to the hospital with complaints of chest discomfort. Patient was noted to have non-ST elevation VT and is status post cardiac catheterization and angioplasty of LAD on 10/04/2022. Serum creatinine was 1.0 on admission and increased to 1.48 today. Patient has had good urine output. Blood pressure has not been low, in fact on the higher side. No history of chronic kidney disease Started on ric inhibitors yesterday. Patient has history of BPH and is maintained on Proscar and Flomax. Not on any IV fluids. Patient tested positive for coronavirus. Currently he is maintained on room air with no significant respiratory symptoms Review of Systems As per HPI Patient is hard of hearing. Past Medical History Past Medical History: CVA/TIA, Diabetes Mellitus, Hypertension, Myocardial Infarction (VT) Additional Past Medical History / Comment(s): Stroke in December of 2021 Last Myocardial Infarction Date:: 10/03/22 History of Any Multi-Drug Resistant Organisms: None Reported Past Surgical History: Orthopedic Surgery Additional Past Surgical History / Comment(s): Urethral surgery-unsure of date Past Anesthesia/Blood Transfusion Reactions: No Reported Reaction Past Psychological History: No Psychological Hx Reported, Depression, PTSD Smoking Status: Former smoker Past Alcohol Use History: None Reported Past Drug Use History: None Reported - Past Family History Father Family Medical History: Hypertension Medications and Allergies Home Medications Medication Instructions Recorded Confirmed Type Aspirin [Towns Aspirin EC] 81 mg PO DAILY 10/03/22 10/03/22 History Atorvastatin Calcium [Lipitor] 80 mg PO HS 10/03/22 10/03/22 History Carboxymethylcellulose Sodium 1 drop BOTH EYES QID 10/03/22 10/03/22 History [Thera Tears] DULoxetine HCL [Cymbalta] 30 mg PO DAILY 10/03/22 10/03/22 History Erythromycin Ophth Oint (1 gm) 1 applic TOPICAL HS 10/03/22 10/03/22 History [Ilotycin Ophth Oint (1 gm)] Finasteride [Proscar] 5 mg PO DAILY 10/03/22 10/03/22 History Glimepiride [Amaryl] 1 mg PO DAILY 10/03/22 10/03/22 History Insulin Glargine,Hum.rec.anlog 15 units SQ DAILY 10/03/22 10/03/22 History [Insulin Glargine Solostar] Magnesium Oxide 400 mg PO DAILY 10/03/22 10/03/22 History Metoprolol Succinate [Toprol XL] 100 mg PO DAILY 10/03/22 10/03/22 History Omeprazole [PriLOSEC] 20 mg PO DAILY 10/03/22 10/03/22 History Sennosides/Docusate Sodium [Senna 1 tab PO DAILY PRN 10/03/22 10/03/22 History Plus 8.6-50 mg Tablet] Tamsulosin HCl [Flomax] 0.8 mg PO W/SUPPER 10/03/22 10/03/22 History glipiZIDE [Glucotrol] 10 mg PO DAILY 10/03/22 10/03/22 History lisinopriL [Zestril] 10 mg PO DAILY 10/03/22 10/03/22 History metFORMIN HCL 1,000 mg PO BID 10/03/22 10/03/22 History Allergies Allergy/AdvReac Type Severity Reaction Status Date / Time No Known Allergies Allergy Verified 10/03/22 17:27 Physical Exam Vitals: Vital Signs Temp Pulse Resp BP Pulse Ox 10/06/22 08:00 97.4 F L 64 18 135/67 96 10/06/22 04:00 98 F 57 L 18 125/61 96 10/06/22 00:00 97.8 F 62 24 122/61 94 L 10/05/22 20:00 97.8 F 65 17 131/66 94 L 10/05/22 16:00 98.0 F 60 19 135/72 99 10/05/22 12:00 98.1 F 61 28 H 117/58 98 Intake and Output 10/05/22 10/06/22 10/06/22 22:59 06:59 14:59 Intake Total 590 240 590 Output Total 300 300 350 Balance 290 -60 240 Intake: Oral 590 240 590 Output: Urine 300 300 350 Other: Voiding Method Toilet Toilet Urinal Urinal # Voids 1 1 1 Weight 77.9 kg Patient is comfortable, awake, no acute distress Examination of the heart S1 and S2 Examination of the lungs bilateral breath sounds are heard Abdomen is soft nontender Examination of the lower extremities shows no significant edema BACKUP ADMINISTRATOR exam grossly intact Results - Lab Results Most recent lab results Calcium 7.7 mg/dL (8.4-10.2) L 10/06/22 05:43 Magnesium 1.7 mg/dL (1.6-2.3) 10/05/22 05:35 10/06/22 05:43 10/06/22 05:43 Assessment and Plan Assessment: 1. Acute kidney injury, contrast-induced nephropathy, nonoliguric. Serum creatinine is also slightly higher due to RIC inhibitor's. May continue with the lisinopril for now. Check bladder scan to rule out urine retention. Repeat labs in a.m. Continue to avoid nephrotoxic agents. Check urine analysis. 2. Acute coronary syndrome status post heart catheterization and angioplasty of LAD 3. COVID positive with no significant respiratory symptoms 4. BPH maintained on Flomax and Proscar Plan: Check urine analysis Continue with current dose of lisinopril Check ultrasound of the kidneys Avoid any nephrotoxic agents Repeat labs in a.m. next Thank you for the consultation. We will continue to follow the patient with you during his hospitalization.
[2022-10-06 10:50] LABS: Appearance,Urine Cloudy (Clear); Bacteria,Urine Many /hpf; Bilirubin,Urine Negative (Negative); Blood,Urine Trace (Negative); Color,Urine Light Yellow; Glucose,Urine (UA) Negative (Negative); Ketones,Urine Negative (Negative); Leukocyte Esterase,Urine Large (Negative); Mucus,Urine Rare /hpf; Nitrite,Urine Positive (Negative); PH, Urine 5.5 (5.0-8.0); Protein,Urine Trace (Negative); RBC,Urine 3 /hpf (0-5); Specific Gravity,Urine 1.007 (1.001-1.035); Urobilinogen,Urine <2.0 mg/dL (<2.0); WBC,Urine >182 /hpf (0-5)
[2022-10-06 11:24] LABS: Glucose,Whole Blood 245 mg/dL (70-110)
--- NOTE | 2022-10-06 11:41 | US ---
EXAMINATION TYPE: US kidneys/renal and bladder DATE OF EXAM: 10/06/2022 COMPARISON: NONE CLINICAL HISTORY: zoey. ZOEY EXAM MEASUREMENTS: Right Kidney: 11.1 x 5.8 x 4.7 cm Left Kidney: 11.1 x 5.3 x 4.4 cm Right Kidney: No hydronephrosis or masses seen Left Kidney: No hydronephrosis or masses seen Bladder: Anechoic prominent prostate seen. Bilateral Jets seen: Yes There is no evidence for hydronephrosis at this point in time. No nephrolithiasis is seen. No tracy s are identified. The urinary bladder is anechoic. Bilateral ureteral jets are seen. IMPRESSION: 1. No hydronephrosis or nephrolithiasis 2. Prostate hypertrophy correlate clinically with PSA.
--- NOTE | 2022-10-06 13:24 | P.PN ---
Subjective Progress Note Date: 10/06/22 Seen and examined at bedside. Patient denied chest pain shortness of breath nausea vomiting fevers or chills. Patient's creatinine did go up to 1.48. Objective - Vital Signs Vital signs: Vital Signs Temp 97.4 F L 10/06/22 12:00 Pulse 66 10/06/22 12:00 Resp 18 10/06/22 12:00 BP 128/61 10/06/22 12:00 Pulse Ox 98 10/06/22 12:00 FiO2 Intake & Output 10/05/22 10/06/22 10/06/22 18:59 06:59 18:59 Intake Total 1180 240 590 Output Total 500 300 665 Balance 680 -60 -75 Weight 77.9 kg Intake: Oral 1180 240 590 Output: Urine 500 300 500 Post Void Residual 165 Other: Voiding Method Toilet Toilet Urinal Urinal # Voids 1 1 1 - Exam General: [non toxic], [no distress], [appears at stated age] Derm: [warm], [dry] Head: [atraumatic], [normocephalic], [symmetric] Eyes: [EOMI], [no lid lag], [anicteric sclera] Mouth: [no lip lesion], [mucus membranes moist] Cardiovascular: [S1S2 reg], [no murmur], [positive posterior tibial pulse bilateral], Lungs: [CTA bilateral], [no rhonchi, no rales] , [no accessory muscle use] Abdominal: [soft], [ nontender to palpation], [no guarding], [no appreciable org anomegaly] Ext: [no gross muscle atrophy], [no edema], [no contractures] Neuro: [ CN II-XI grossly intact], [no focal neuro deficits] Psych: [Alert], [oriented], [appropriate affect] - Labs CBC & Chem 7: 10/06/22 05:43 10/06/22 05:43 Labs: Abnormal Lab Results - Last 24 Hours (Table) 10/05/22 10/05/22 10/06/22 Range/Units 17:31 19:37 05:43 RBC (4.30-5.90) m/uL Hgb (13.0-17.5) gm/dL Hct (39.0-53.0) % Sodium (137-145) mmol/L BUN (9-20) mg/dL Creatinine (0.66-1.25) mg/dL POC Glucose (mg/dL) 220 H 279 H (70-110) mg/dL Hemoglobin A1c 9.9 H (0.0-6.0) % Calcium (8.4-10.2) mg/dL Urine Protein (Negative) Urine Blood (Negative) Ur Leukocyte Esterase (Negative) Urine WBC (0-5) /hpf Urine WBC Clumps (None) /hpf Urine Bacteria (None) /hpf Urine Mucus (None) /hpf 10/06/22 10/06/22 10/06/22 Range/Units 05:43 05:43 06:20 RBC 3.72 L (4.30-5.90) m/uL Hgb 10.1 L (13.0-17.5) gm/dL Hct 31.1 L (39.0-53.0) % Sodium 133 L (137-145) mmol/L BUN 23 H (9-20) mg/dL Creatinine 1.48 H (0.66-1.25) mg/dL POC Glucose (mg/dL) 124 H (70-110) mg/dL Hemoglobin A1c (0.0-6.0) % Calcium 7.7 L (8.4-10.2) mg/dL Urine Protein (Negative) Urine Blood (Negative) Ur Leukocyte Esterase (Negative) Urine WBC (0-5) /hpf Urine WBC Clumps (None) /hpf Urine Bacteria (None) /hpf Urine Mucus (None) /hpf 10/06/22 10/06/22 Range/Units 10:30 11:23 RBC (4.30-5.90) m/uL Hgb (13.0-17.5) gm/dL Hct (39.0-53.0) % Sodium (137-145) mmol/L BUN (9-20) mg/dL Creatinine (0.66-1.25) mg/dL POC Glucose (mg/dL) 245 H (70-110) mg/dL Hemoglobin A1c (0.0-6.0) % Calcium (8.4-10.2) mg/dL Urine Protein Trace H (Negative) Urine Blood Trace H (Negative) Ur Leukocyte Esterase Large H (Negative) Urine WBC >182 H (0-5) /hpf Urine WBC Clumps Many H (None) /hpf Urine Bacteria Many H (None) /hpf Urine Mucus Rare H (None) /hpf Assessment and Plan Assessment: ZOEY likely contrast-induced nephropathy, nonoliguric -Nephrology consulted -Ultrasound ordered STEMI status post PCI to LAD -Cardiology recommendations appreciated -ASA, plavix, statin - echo with preserved EF DM 2 uncontrolled - BS reviewed max in 24 hours is ~171 - SSI - Increase levemir to 20 units subcu every morning - hold metformin,amaryl, glucotrol - follow BS - Hemoglobin A1c 9.9% Hypomagnesemia, resolved COVID-19 pneumonia -Not requiring supplemental oxygen at this time -Monitor for now Chronic conditions: hypertension, HLD - metoprolol, lisinopril, follow BP DVT prophylaxis: lovenox Discussed with: patient, nursing Anticipated discharge: In the morning Anticipated discharge place: pending clinical course
[2022-10-06 16:23] LABS: Glucose,Whole Blood 201 mg/dL (70-110)
[2022-10-06] MEDS: TAMSULOSIN 0.4 MG CAP.ER.24H PO SCH (17:04)
[2022-10-06 19:55] LABS: Glucose,Whole Blood 168 mg/dL (70-110)
[2022-10-06] MEDS: SODIUM CHLORIDE 0.9% 1,000 ML IV SCH (20:44)
[2022-10-07] MEDS ORDERED: ACETAMINOPHEN TAB 325 MG TAB PO STA (02:13)
[2022-10-07 06:13] LABS: Basophils % (A) 1 %; Eosinophils # (A) 0.1 k/uL (0-0.7); Eosinophils % (A) 2 %; HCT 31.6 % (39.0-53.0); HGB 10.2 gm/dL (13.0-17.5); Lymphocytes # (A) 1.2 k/uL (1.0-4.8); Lymphocytes % (A) 26 %; MCH 27.1 pg (25.0-35.0); MCHC 32.4 g/dL (31.0-37.0); MCV 83.6 fL (80.0-100.0); Mean Platelet Volume 8.3; Monocytes # (A) 0.3 k/uL (0-1.0); Monocytes % (A) 7 %; Neutrophils # (A) 2.7 k/uL (1.3-7.7); Neutrophils % (A) 62 %; Platelet Count 274 k/uL (150-450); RBC 3.78 m/uL (4.30-5.90); RDW 13.2 % (11.5-15.5); WBC 4.4 k/uL (3.8-10.6)
[2022-10-07 06:29] LABS: Albumin 3.1 g/dL (3.5-5.0); Calcium 7.8 mg/dL (8.4-10.2); Potassium 5.1 mmol/L (3.5-5.1); Total Bilirubin 0.2 mg/dL (0.2-1.3); Total Protein 5.9 g/dL (6.3-8.2)
[2022-10-07 06:42] LABS: Glucose,Whole Blood 107 mg/dL (70-110)
[2022-10-07] MEDS: PANTOPRAZOLE 40 MG TABLET PO SCH (06:43)
[2022-10-07] MEDS: INSULIN ASPART (NovoLOG) 100 UNIT/ML VIAL SQ SCH ×3 (06:43→17:15)
[2022-10-07] MEDS ORDERED: INSULIN DETEMIR (LEVEMIR) 100 UNIT/ML SYR SQ SCH (07:00)
--- NOTE | 2022-10-07 08:21 | P.PN ---
Progress Note - Text Progress Note Date: 10/07/22 This is an 82-year-old gentleman with a past medical history significant for hypertension and dyslipidemia who was admitted to the hospital with chest discomfort and underwent an emergent heart catheterization and stenting of the LAD and was found to have nonobstructive disease involving the LCx and RCA. The echo showed preserved LV function October [id number] The patient was seen and evaluated this morning. He remains hemodynamically stable. He remains asymptomatic. He is on dual antiplatelet therapy. From a cardiovascular standpoint of view, the patient potentially can be discharged home in the next 12-24 hours.
[2022-10-07] MEDS: ENOXAPARIN 40 MG/0.4 ML SYRINGE SQ SCH (09:28)
[2022-10-07] MEDS: FINASTERIDE 5 MG TAB PO SCH (09:28)
[2022-10-07] MEDS: METOPROLOL SUCCINATE (ER) 50 MG TAB.ER.24H PO SCH (09:28)
[2022-10-07] MEDS: polyethylene glycoL 3350 17 GM POWD.PACK PO SCH (09:28)
[2022-10-07] MEDS: DULoxetine HCL 30 MG CAPSULE.DR PO SCH (09:28)
[2022-10-07] MEDS: ASPIRIN 81 MG PO SCH (09:28)
[2022-10-07] MEDS: CLOPIDOGREL 75 MG TAB PO SCH (09:28)
[2022-10-07] MEDS: lisinopriL 20 MG TAB PO SCH (09:28)
[2022-10-07 11:38] VITALS: BP 127/55; PULSE 62; RESP 18; TEMP 97.6
[2022-10-07 12:00] LABS: Glucose,Whole Blood 192 mg/dL (70-110)
--- NOTE | 2022-10-07 12:03 | P.PN ---
Subjective Patient is seen for follow-up for acute kidney injury. He is status post cardiac catheterization and on 10/04/2022 and maintained on RIC inhibitor's, the dose of which was recently increased. Serum creatinine staying at about 1.4 mg/dL. Patient has had good urine output. No complaints today Objective - Vital Signs Vital signs: Vital Signs Temp 97.6 F 10/07/22 11:37 Pulse 62 10/07/22 11:37 Resp 18 10/07/22 11:37 BP 127/55 10/07/22 11:37 Pulse Ox 96 10/07/22 11:37 FiO2 Intake & Output 10/06/22 10/07/22 10/07/22 18:59 06:59 18:59 Intake Total 660 650 Output Total 665 615 Balance -5 35 Weight 79.5 kg Intake: IV 20 200 Sodium Chloride 0.9% 1, 20 200 000 ml @ 20 mls/hr IV . Q24H [facility] Rx#:[id number] Intake, IV Titration 50 Amount cefTRIAXone 1 gm In 50 Sodium Chloride 0.9% 50 ml @ 100 mls/hr IVPB Q24HR [facility] Rx#:[id number] Oral 590 450 Output: Urine 500 615 Post Void Residual 165 Other: Voiding Method Toilet Toilet Urinal Urinal # Voids 1 1 # Bowel Movements 0 - Exam Awake, comfortable, no acute distress Heart of hearing Examination of the heart S1 and S2 Examination lungs bilateral breath sounds are heard Abdomen is soft nontender Examination lower extremities shows no evidence of edema [employer] SEC[employer]ITY [employer]ENEF[employer] INTERVIEWER exam grossly intact - Labs CBC & Chem 7: 10/07/22 05:43 10/07/22 05:43 Labs: Abnormal Lab Results - Last 24 Hours (Table) 10/06/22 10/06/22 10/07/22 Range/Units 16:22 19:53 05:43 RBC 3.78 L (4.30-5.90) m/uL Hgb 10.2 L (13.0-17.5) gm/dL Hct 31.6 L (39.0-53.0) % Sodium (137-145) mmol/L Carbon Dioxide (22-30) mmol/L BUN (9-20) mg/dL Creatinine (0.66-1.25) mg/dL Glucose (74-99) mg/dL POC Glucose (mg/dL) 201 H 168 H (70-110) mg/dL Calcium (8.4-10.2) mg/dL Alkaline Phosphatase (38-126) U/L Total Protein (6.3-8.2) g/dL Albumin (3.5-5.0) g/dL 10/07/22 10/07/22 Range/Units 05:43 11:58 RBC (4.30-5.90) m/uL Hgb (13.0-17.5) gm/dL Hct (39.0-53.0) % Sodium 131 L (137-145) mmol/L Carbon Dioxide 21 L (22-30) mmol/L BUN 23 H (9-20) mg/dL Creatinine 1.40 H (0.66-1.25) mg/dL Glucose 105 H (74-99) mg/dL POC Glucose (mg/dL) 192 H (70-110) mg/dL Calcium 7.8 L (8.4-10.2) mg/dL Alkaline Phosphatase 129 H (38-126) U/L Total Protein 5.9 L (6.3-8.2) g/dL Albumin 3.1 L (3.5-5.0) g/dL Microbiology - Last 24 Hours (Table) 10/06/22 10:30 Urine Culture - Preliminary Urine,Voided Assessment and Plan Assessment: 1. Acute kidney injury, contrast-induced nephropathy, nonoliguric. Serum creatinine is also slightly higher due to RIC inhibitor's. May continue with the lisinopril for now. Check bladder scan to rule out urine retention. Repeat labs in a.m. Continue to avoid nephrotoxic agents. UA is suggestive of UTI with WBCs more than 182 2. Acute coronary syndrome status post heart catheterization and angioplasty of LAD 3. COVID positive with no significant respiratory symptoms 4. BPH maintained on Flomax and Proscar 5. Pyuria maintained on empiric antibiotics. Urine culture is pending Plan: Follow-up and urine cultures May continue with the lisinopril Continue with empiric antibiotics Repeat labs in a.m.
--- NOTE | 2022-10-07 14:37 | P.DS ---
Providers Date of admission: 10/03/22 18:57 Expected date of discharge: 10/07/22 Attending physician: Carlita Barkley DO Consults: 10/03/22 18:44 Consult Physician Routine Consulting Provider: Bear Nelson Consult Reason/Comments: stemi Do you want consulting provider notified?: Yes 10/03/22 20:58 Consult Physician Routine Consulting Provider: [facility] Consult Reason/Comments: Post Interventional Patient Do you want consulting provider notified?: Already Contacted 10/06/22 07:46 Consult Physician Routine Consulting Provider: Burke Meeks Consult Reason/Comments: ZOEY Do you want consulting provider notified?: Yes Primary care physician: [facility] Hospital Course: Patient is an 82-year-old male with DM II, hypertension, hyperlipidemia who h emergency room with complaints of chest discomfort. In the emergency room, he was noted to have ongoing chest discomfort with a dynamic EKG changes. A CODE STEMI was activated and the patient was taken to [facility] where he underwent PCI to proximal LAD with a LUCY. Laboratory evaluation in the emergency room was remarkable for COVID positive, troponin and 0.131, magnesium 1.4, glucose 317. Chest x-ray revealed mild bilateral patchy infiltrates. He was admitted to the ICU after stent placement. ECHO with EF 55%. He continued to be stable on room air. His creatinine peaked at 1.48. Nephrology was consulted and pulled the patient during his hospitalization. Urine culture grew gram-negative bacilli at the time of discharge. Patient received 2 days of Rocephin. Creatinine improved, 1.4 on the day of discharge. Patient was seen and examined. No acute events overnight. Patient reports no complaints today. Pertinent studies include chest x-ray, echocardiogram, renal bladder ultrasound Pertinent procedures include cardiac catheterization General: non toxic, no distress, appears at stated age Derm: warm, dry Head: atraumatic, normocephalic, symmetric Eyes: EOMI, no lid lag, anicteric sclera Mouth: no lip lesion, mucus membranes moist Cardiovascular: S1S2 reg, no murmur, positive posterior tibial pulse bilateral, Lungs: CTA bilateral, no rhonchi, no rales , no accessory muscle use Ext: no gross muscle atrophy, no edema, no contractures Neuro: no focal neuro deficits Psych: Alert, oriented, appropriate affect Discharge diagnosis: ZOEY likely contrast-induced nephropathy, nonoliguric Pyuria STEMI status post PCI to LAD DM 2 uncontrolled Hypomagnesemia, resolved COVID-19 pneumonia Chronic conditions: hypertension, HLD Patient will be discharged home with the following instructions: Diet: Diabetic,Cardiac FU PCP within 1-2 days of DC. FU Cardiology within 1 week of DC. Repeat BMP in 3 days, FU results with PCP. Take all medications as advised. He will take 5 days of Augmentin to complete a total of 7 days antibiotics for gram-negative bacilli seen on urine culture. This complex discharge took 40 minutes to complete. Patient Condition at Discharge: Stable Plan - Discharge Summary Discharge Rx Participant: No New Discharge Prescriptions: New Metoprolol Succinate (ER) [Toprol XL] 50 mg PO BID #60 tab lisinopriL [Zestril] 20 mg PO DAILY #30 tab Amoxic-Pot Clav 875-125Mg [Augmentin 875-125] 1 tab PO Q12HR 5 Days #10 tab Nitroglycerin Sl Tabs [Nitrostat] 0.4 mg SUBLINGUAL Q5M PRN #30 tab PRN Reason: Chest Pain Clopidogrel [Plavix] 75 mg PO DAILY #90 tab Continue Tamsulosin HCl [Flomax] 0.8 mg PO W/SUPPER Omeprazole [PriLOSEC] 20 mg PO DAILY Glimepiride [Amaryl] 1 mg PO DAILY Finasteride [Proscar] 5 mg PO DAILY DULoxetine HCL [Cymbalta] 30 mg PO DAILY glipiZIDE [Glucotrol] 10 mg PO DAILY Aspirin [[place] Aspirin EC] 81 mg PO DAILY Magnesium Oxide 400 mg PO DAILY Atorvastatin Calcium [Lipitor] 80 mg PO HS Insulin Glargine,Hum.rec.anlog [Insulin Glargine Solostar] 15 units SQ DAILY Erythromycin Ophth Oint (1 gm) [Ilotycin Ophth Oint (1 gm)] 1 applic TOPICAL HS Sennosides/Docusate Sodium [Senna Plus 8.6-50 mg Tablet] 1 tab PO DAILY PRN PRN Reason: Constipation Carboxymethylcellulose Sodium [Thera Tears] 1 drop BOTH EYES QID Discontinued Metoprolol Succinate [Toprol XL] 100 mg PO DAILY metFORMIN HCL 1,000 mg PO BID lisinopriL [Zestril] 10 mg PO DAILY Discharge Medication List Aspirin [[place] Aspirin EC] 81 mg PO DAILY 10/03/22 [History] Atorvastatin Calcium [Lipitor] 80 mg PO HS 10/03/22 [History] Carboxymethylcellulose Sodium [Thera Tears] 1 drop BOTH EYES QID 10/03/22 [History] DULoxetine HCL [Cymbalta] 30 mg PO DAILY 10/03/22 [History] Erythromycin Ophth Oint (1 gm) [Ilotycin Ophth Oint (1 gm)] 1 applic TOPICAL HS 10/03/22 [History] Finasteride [Proscar] 5 mg PO DAILY 10/03/22 [History] Glimepiride [Amaryl] 1 mg PO DAILY 10/03/22 [History] Insulin Glargine,Hum.rec.anlog [Insulin Glargine Solostar] 15 units SQ DAILY 10/03/22 [History] Magnesium Oxide 400 mg PO DAILY 10/03/22 [History] Omeprazole [PriLOSEC] 20 mg PO DAILY 10/03/22 [History] Sennosides/Docusate Sodium [Senna Plus 8.6-50 mg Tablet] 1 tab PO DAILY PRN 10/03/22 [History] Tamsulosin HCl [Flomax] 0.8 mg PO W/SUPPER 10/03/22 [History] glipiZIDE [Glucotrol] 10 mg PO DAILY 10/03/22 [History] Amoxic-Pot Clav 875-125Mg [Augmentin 875-125] 1 tab PO Q12HR 5 Days #10 tab 10/07/22 [Rx] Clopidogrel [Plavix] 75 mg PO DAILY #90 tab 10/07/22 [Rx] Metoprolol Succinate (ER) [Toprol XL] 50 mg PO BID #60 tab 10/07/22 [Rx] Nitroglycerin Sl Tabs [Nitrostat] 0.4 mg SUBLINGUAL Q5M PRN #30 tab 10/07/22 [Rx] lisinopriL [Zestril] 20 mg PO DAILY #30 tab 10/07/22 [Rx] Follow up Appointment(s)/Referral(s): Isiah Davis MD [STAFF PHYSICIAN] - 1 Week [facility],Clinic [Primary Care Provider] - 1-2 days Ambulatory/Diagnostic Orders: Basic Metabolic Panel [LAB.AMB] Time Frame: 3 Days, Location: None Selected Activity/Diet/Wound Care/Special Instructions: Diet: Diabetic,Cardiac FU PCP within 1-2 days of DC. FU Cardiology within 1 week of DC. Repeat BMP in 3 days, FU results with PCP. Take all medications as advised. Discharge Disposition: HOME SELF-CARE
[2022-10-07 17:01] LABS: Glucose,Whole Blood 160 mg/dL (70-110)
[2022-10-07] MEDS: TAMSULOSIN 0.4 MG CAP.ER.24H PO SCH (17:15)
== END 2022-10-07 17:46 | disposition home or self-care (01) | DRG 246 ==
LOC: EC 17:15 → 2SICU 18:57
PROVIDERS: ADMIT Internal Medicine; ATTEND Internal Medicine
PROC: 027034Z Dilation of Coronary Artery, One Artery with Drug-eluting Intraluminal Device, Percutaneous Approach (ICD-10-PCS; principal; 2022-10-03 19:04)
PROC: B2111ZZ Fluoroscopy of Multiple Coronary Arteries using Low Osmolar Contrast (ICD-10-PCS; 2022-10-03 19:04)
PROC: 4A023N7 Measurement of Cardiac Sampling and Pressure, Left Heart, Percutaneous Approach (ICD-10-PCS; 2022-10-03 19:04)
PROC: B2101ZZ Fluoroscopy of Single Coronary Artery using Low Osmolar Contrast (ICD-10-PCS; 2022-10-03 19:04)
DX: I21.09 ST elevation (STEMI) myocardial infarction involving other coronary artery of anterior wall (principal); J12.82 Pneumonia due to coronavirus disease 2019; U07.1 COVID-19; J44.0 Chronic obstructive pulmonary disease with (acute) lower respiratory infection; B96.20 Unspecified Escherichia coli [E. coli] as the cause of diseases classified elsewhere; E11.65 Type 2 diabetes mellitus with hyperglycemia; I25.110 Atherosclerotic heart disease of native coronary artery with unstable angina pectoris; I08.1 Rheumatic disorders of both mitral and tricuspid valves; I10 Essential (primary) hypertension; N40.0 Benign prostatic hyperplasia without lower urinary tract symptoms; H91.90 Unspecified hearing loss, unspecified ear; E78.5 Hyperlipidemia, unspecified; N14.11 Contrast-induced nephropathy; T50.8X5A Adverse effect of diagnostic agents, initial encounter; T46.4X5A Adverse effect of angiotensin-converting-enzyme inhibitors, initial encounter; R82.81 Pyuria; E83.42 Hypomagnesemia; Z28.310 Unvaccinated for COVID-19; I25.2 Old myocardial infarction; Z87.891 Personal history of nicotine dependence; Z79.82 Long term (current) use of aspirin; Z82.49 Family history of ischemic heart disease and other diseases of the circulatory system; Z79.84 Long term (current) use of oral hypoglycemic drugs; Z79.4 Long term (current) use of insulin; Z86.73 Personal history of transient ischemic attack (TIA), and cerebral infarction without residual deficits; Z79.899 Other long term (current) drug therapy
CPT/HCPCS: 36415; 71046; 76770; 80048; 80053; 81001; 83036; 83735; 84153; 84154; 84484; 85025; 85027; 85610; 85730; 87077; 87086; 87186; 87636; 92921; 92978; 93005; 93306; 93454; 96374; 99291

== ENCOUNTER 2022-10-10 20:57 | Inpatient (IN) | payer OTHER, MEDICARE ==
[2022-10-10 21:09] LABS: Glucose,Whole Blood 311 mg/dL (70-110)
--- NOTE | 2022-10-10 21:10 | ED ---
General Adult HPI - General Stated complaint: STEMI Time Seen by Provider: 10/10/22 21:02 Source: patient Mode of arrival: EMS Limitations: no limitations - History of Present Illness Initial comments: Dictation was produced using [employer] dictation software. please excuse any grammatical, word or spelling errors. Chief Complaint: 82-year-old male presents emergency department for chest pain History of Present Illness:-year-old male presents emergency for chest pain. Patient states that he was to go sit down to watch TV when all of a sudden he began experiencing chest pressure that radiate down both of his arms. Took some nitro which alleviated his symptoms from a severity score 8 out of 10-5 out of 10. Patient was here in emergency department last week were he was emergently sent to the [facility] and a coronary artery stent was placed. Patient states that after the stent was placed she's been feeling fine. Today his symptoms felt severe. He is worried that he is having a recurrent heart attack. During his last admission he was also diagnosed with COVID-19. Denies any fever or chills or constitutional symptoms. The ROS documented in this emergency department record has been reviewed and confirmed by me. Those systems with pertinent positive or negative responses have been documented in the HPI. All other systems are other negative and/or noncontributory. PHYSICAL EXAM: General Impression: Alert and oriented x3, not in acute distress HEENT: Normocephalic atraumatic, extra-ocular movements intact, pupils equal and reactive to light bilaterally, mucous membranes moist. Cardiovascular: Heart regular rate and rhythm Chest: Able to complete full sentences, no retractions, no tachypnea Abdomen: abdomen soft, non-tender, non-distended, no organomegaly Musculoskeletal: Pulses present and equal in all extremities, no peripheral edema Motor: no focal deficits noted Neurological: CN II-XII grossly intact, no focal motor or sensory deficits noted Skin: Intact with no visualized rashes Psych: Normal affect and mood ED course: 82-year-old well-appearing male presents emergency department with chest pain concerning for acute coronary syndrome. Chart review from last visit was performed. Cardiac cath and cardiology consultation note was reviewed. Ends upon arrival are within acceptable limits. EKG was entirely obvious for ST segment elevation LA. Case was discussed in detail with on-call veneer marker Dr. Davis. EKG was faxed to Dr. Davis for review at 9:07 PM. Nursing notes and chart review was performed EKG interpreted by me: Ventricular rate 76, sinus rhythm,. Interval to 50, QRS 124, QTC 432. No GA prolongation, no QTC prolongation. ST elevations in the anterior septal precordial leads. No obvious depressions. EKG is concerning for ischemic changes. Dr. Davis reviewed EKG and recommended code STEMI be paged. He is concerned that patient may have occluded his recently placed stent. Patient started on heparin and nitro infusion. Patient admitted to [facility] Was pt. sent in by a medical professional or institution (, PA, POLICE CHIEF, urgent care, hospital, or [facility]...) When possible be specific @ -[No] Did you speak to anyone other than the patient for history (EMS, parent, family, police, friend...)? What history was obtained from this source @ -EMS Did you review nursing and triage notes (agree or disagree)? Why? @ -[I reviewed and agree with nursing and triage notes] Were old charts reviewed (outside hosp., previous admission, EMS record, old EKG, old radiological studies, urgent care reports/EKG's, [facility] records)? Report findings @ -See above Differential Diagnosis (chest pain, altered mental status, abdominal pain women, abdominal pain men, vaginal bleeding, weakness, fever, dyspnea, syncope, headache, dizziness, GI bleed, back pain, seizure, CVA, palpatations, mental health)? @ -Differential Chest Pain: Stable Angina, Unstable Angina, STEMI, NSTEMI Aortic Dissection, Pneumothorax, Musculoskeletal, Esophageal Spasm GERD, Cholecystitis, Pancreatitis, Zoster, this is not meant to be an all-inclusive list. EKG interpreted by me (3pts min.). @ -[As above] X-rays interpreted by me (1pt min.). @ -As above CT interpreted by me (1pt min.). @ -[None done] U/S interpreted by me (1pt. min.). @ -[None done] What testing was considered but not performed or refused? (CT, X-rays, U/S, labs)? Why? @ -None What meds were considered but not given or refused? Why? @ -None Did you discuss the management of the patient with other professionals (professionals i.e. , PA, POLICE CHIEF, lab, RT, psych nurse, case management social worker, special agent secret service, teacher, parole hearing officer, human services case manager)? Give summary @ -[See above] Was smoking cessation discussed for >3mins.? @ -[No] Was critical care preformed (if so, how long)? @ -Yes, 33 minutes Were there social determinants of health that impacted care today? How? (Home lessness, low income, unemployed, alcoholism, drug addiction, transportation, low edu. Level, literacy, decrease access to med. care, long-term, rehab)? @ -[No] Was there de-escalation of care discussed even if they declined (Discuss DNR or withdrawal of care, Hospice)? DNR status @ -[No] What co-morbidities impacted this encounter? (DM, HTN, Smoking, COPD, CAD, Cancer, CVA, ARF, Chemo, Hep., AIDS, mental health diagnosis, sleep apnea, morbid obesity)? @ -[None] Was patient admitted / discharged? Hospital course, mention meds given and route, prescriptions, significant lab abnormalities, going to OR and other pertinent info. @ -[See above] Undiagnosed new problem with uncertain prognosis? @ -[No] Drug Therapy requiring intensive monitoring for toxicity (Heparin, Nitro, Insulin, Cardizem)? @ -[No] Were any procedures done? @ -no Diagnosis/symptom? @ -Acute coronary syndrome Acute, or Chronic, or Acute on Chronic? @ -Acute Uncomplicated (without systemic symptoms) or Complicated (systemic symptoms)? @ -Complicated Side effects of treatment? @ -[No] Exacerbation, Progression, or Severe Exacerbation? @ -no Poses a threat to life or bodily function? How? (Chest pain, USA, LA, pneumonia, PE, COPD, DKA, ARF, appy, cholecystitis, CVA, Diverticulitis, Homicidal, Suicidal, threat to staff... and all critical care pts) @ -Yes - Related Data Home Medications Medication Instructions Recorded Confirmed Aspirin [[place] Aspirin EC] 81 mg PO DAILY 10/03/22 10/10/22 Atorvastatin Calcium [Lipitor] 80 mg PO HS 10/03/22 10/10/22 Carboxymethylcellulose Sodium 1 drop BOTH EYES QID 10/03/22 10/10/22 [Thera Tears] DULoxetine HCL [Cymbalta] 30 mg PO DAILY 10/03/22 10/10/22 Erythromycin Ophth Oint (1 gm) 1 applic TOPICAL HS 10/03/22 10/10/22 [Ilotycin Ophth Oint (1 gm)] Finasteride [Proscar] 5 mg PO DAILY 10/03/22 10/10/22 Glimepiride [Amaryl] 1 mg PO DAILY 10/03/22 10/10/22 Insulin Glargine,Hum.rec.anlog 15 units SQ DAILY 10/03/22 10/10/22 [Insulin Glargine Solostar] Magnesium Oxide 400 mg PO DAILY 10/03/22 10/10/22 Omeprazole [PriLOSEC] 20 mg PO DAILY 10/03/22 10/10/22 Sennosides/Docusate Sodium [Senna 1 tab PO DAILY PRN 10/03/22 10/10/22 Plus 8.6-50 mg Tablet] Tamsulosin HCl [Flomax] 0.8 mg PO W/SUPPER 10/03/22 10/10/22 glipiZIDE [Glucotrol] 10 mg PO DAILY 10/03/22 10/10/22 Previous Rx's Medication Instructions Recorded Amoxic-Pot Clav 875-125Mg 1 tab PO Q12HR 5 Days #10 tab 10/07/22 [Augmentin 875-125] Clopidogrel [Plavix] 75 mg PO DAILY #90 tab 10/07/22 Metoprolol Succinate (ER) [Toprol 50 mg PO BID #60 tab 10/07/22 XL] Nitroglycerin Sl Tabs [Nitrostat] 0.4 mg SUBLINGUAL Q5M PRN #30 tab 10/07/22 lisinopriL [Zestril] 20 mg PO DAILY #30 tab 10/07/22 Allergies Allergy/AdvReac Type Severity Reaction Status Date / Time No Known Allergies Allergy Verified 10/10/22 21:17 Review of Systems ROS Statement: Those systems with pertinent positive or pertinent negative responses have been documented in the HPI. ROS Other: All systems not noted in ROS Statement are negative. Past Medical History Past Medical History: CVA/TIA, Diabetes Mellitus, Hypertension, Myocardial Infarction (LA) Additional Past Medical History / Comment(s): Stroke in December of 2021 Last Myocardial Infarction Date:: 10/03/22 History of Any Multi-Drug Resistant Organisms: None Reported Past Surgical History: Orthopedic Surgery Additional Past Surgical History / Comment(s): Urethral surgery-unsure of date Past Anesthesia/Blood Transfusion Reactions: No Reported Reaction Past Psychological History: No Psychological Hx Reported, Depression, PTSD Smoking Status: Former smoker Past Alcohol Use History: None Reported Past Drug Use History: None Reported - Past Family History Father Family Medical History: Hypertension General Exam Limitations: no limitations Course Vital Signs 10/10/22 10/10/22 10/10/22 21:00 21:08 21:50 Pulse Rate 75 85 Respiratory 16 16 Rate Blood Pressure 222/100 213/122 O2 Sat by Pulse 100 100 Oximetry Medical Decision Making - Lab Data Result diagrams: 10/10/22 21:07 Lab Results 10/10/22 10/10/22 10/10/22 Range/Units 21:07 21:07 21:08 WBC 7.0 (3.8-10.6) k/uL RBC 4.02 L (4.30-5.90) m/uL Hgb 10.9 L (13.0-17.5) gm/dL Hct 33.5 L (39.0-53.0) % MCV 83.2 (80.0-100.0) fL MCH 27.2 (25.0-35.0) pg MCHC 32.6 (31.0-37.0) g/dL RDW 13.7 (11.5-15.5) % Plt Count 329 (150-450) k/uL MPV 8.6 Neutrophils % 64 % Lymphocytes % 25 % Monocytes % 7 % Eosinophils % 2 % Basophils % 0 % Neutrophils # 4.4 (1.3-7.7) k/uL Lymphocytes # 1.7 (1.0-4.8) k/uL Monocytes # 0.5 (0-1.0) k/uL Eosinophils # 0.1 (0-0.7) k/uL Basophils # 0.0 (0-0.2) k/uL PT 10.2 (9.0-12.0) sec INR 1.0 (<1.2) APTT 25.9 (22.0-30.0) sec POC Glucose (mg/dL) 311 H (70-110) mg/dL POC Glu Adoption Specialist ID Anthony Vaughn Disposition Clinical Impression: STEMI (ST elevation myocardial infarction) Disposition: ADMITTED IP TO THIS HOSP Condition: Critical Decision Time: 21:32
[2022-10-10] MEDS ORDERED: HEPARIN SODIUM 1,000 UN/ML (10ML VL) IV ONE ×2 (21:18→22:36)
[2022-10-10] MEDS ORDERED: HEPARIN SODIUM 1,000 UN/ML (10ML VL) IV PRN (21:18)
[2022-10-10] MEDS ORDERED: NITROGLYCERIN SL TABS 0.4 MG TAB SUBLINGUAL STA (21:19)
[2022-10-10] MEDS ORDERED: NITROGLYCERIN-D5W PMX 50 MG in DEXTROSE/WATER 1 250ML.BAG IV ONE (21:19)
[2022-10-10] MEDS ORDERED: HEPARIN SOD,PORK IN 0.45% NACL 25,000 UNIT in 0.45% NACL 1 250ML.BAG IV SCH (21:30)
[2022-10-10] MEDS ORDERED: NALOXONE 0.4 MG/ML 1 ML VIAL IV PRN (21:32)
[2022-10-10 21:50] LABS: Basophils % (A) 0 %; Eosinophils # (A) 0.1 k/uL (0-0.7); Eosinophils % (A) 2 %; HCT 33.5 % (39.0-53.0); HGB 10.9 gm/dL (13.0-17.5); Lymphocytes # (A) 1.7 k/uL (1.0-4.8); Lymphocytes % (A) 25 %; MCH 27.2 pg (25.0-35.0); MCHC 32.6 g/dL (31.0-37.0); MCV 83.2 fL (80.0-100.0); Mean Platelet Volume 8.6; Monocytes # (A) 0.5 k/uL (0-1.0); Monocytes % (A) 7 %; Neutrophils # (A) 4.4 k/uL (1.3-7.7); Neutrophils % (A) 64 %; Platelet Count 329 k/uL (150-450); RBC 4.02 m/uL (4.30-5.90); RDW 13.7 % (11.5-15.5)
[2022-10-10 21:51] LABS: Partial Thromboplastin Time 25.9 sec (22.0-30.0); Prothrombin Time 10.2 sec (9.0-12.0)
--- NOTE | 2022-10-10 21:55 | XR ---
EXAMINATION TYPE: XR chest 1V DATE OF EXAM: 10/10/2022 COMPARISON: 10/03/2022 HISTORY: Chest pain TECHNIQUE: Single view FINDINGS: Heart is normal. There is some coarsening of interstitial markings. There are chest leads. Costophrenic angles are clear. No pulmonary consolidation or heart failure. IMPRESSION: Mild pulmonary fibrosis. Normal heart. Pulmonary vascularity increased compared to old ex am but no obvious heart failure
[2022-10-10] MEDS ORDERED: LIDOCAINE 1% INJ 10MG/ML (30 ML VIAL-PF) SQ ONE (22:00)
[2022-10-10] MEDS ORDERED: MORPHINE SULFATE 4 MG/ML SYRINGE ONE (22:06)
[2022-10-10 22:09] LABS: Albumin 3.6 g/dL (3.5-5.0); Potassium 4.7 mmol/L (3.5-5.1)
[2022-10-10 22:10] LABS: Calcium 8.9 mg/dL (8.4-10.2); Magnesium 1.5 mg/dL (1.6-2.3); Total Bilirubin 0.4 mg/dL (0.2-1.3)
[2022-10-10] MEDS ORDERED: VERAPAMIL SYRINGE (5 MG/10 ML) INTRAARTER ONE ×2 (22:10→22:46)
[2022-10-10] MEDS ORDERED: MIDAZOLAM 2 MG/2 ML VIAL IV ONE (22:15)
[2022-10-10] MEDS ORDERED: SODIUM CHLORIDE 0.9% 500 ML 500 ML IV ONE (22:15)
[2022-10-10] MEDS ORDERED: MORPHINE SULFATE 4 MG/ML SYRINGE IV ONE (22:15)
[2022-10-10 22:18] LABS: Creatine Kinase MB 1.2 ng/mL (0.0-2.4)
[2022-10-10 22:24] LABS: Troponin I 0.449 ng/mL (0.000-0.034)
[2022-10-10] MEDS ORDERED: HEPARIN SODIUM 1,000 UN/ML (10ML VL) ONE (22:34)
[2022-10-10 22:35] LABS: Total Protein 6.6 g/dL (6.3-8.2)
[2022-10-10] MEDS ORDERED: TICAGRELOR 90 MG TAB ONE (22:43)
[2022-10-10] MEDS ORDERED: VERAPAMIL 2.5 MG/ML 2 ML AMP ONE (22:44)
[2022-10-10] MEDS ORDERED: TICAGRELOR 90 MG TAB PO ONE (22:46)
[2022-10-10] MEDS ORDERED: IOPAMIDOL-370 125ML BTL INJ ONE (22:49)
[2022-10-10] MEDS ORDERED: NITROGLYCERIN SL TABS 0.4 MG TAB SUBLINGUAL PRN ×2 (22:55→22:56)
[2022-10-10] MEDS ORDERED: RX INFO: IV CONTRAST WAS GIVEN 1 EACH MISC MISCELLANE PRN (22:56)
[2022-10-10] MEDS ORDERED: ATROPINE SULFATE 0.1 MG/ML 10ML SYRINGE IV PRN (22:56)
[2022-10-10] MEDS ORDERED: ZOLPIDEM 5 MG TAB PO PRN (22:56)
[2022-10-10] MEDS ORDERED: SODIUM CHLORIDE 0.9% 1,000 ML in EMPTY BAG 1 BAG IV SCH (23:00)
--- NOTE | 2022-10-10 23:04 | P.PCN ---
Date of Procedure: 10/10/22 Operative Findings: CARDIAC CATHETERIZATION AND PERCUTANEOUS CORONARY INTERVENTION PERFORMING PHYSICIAN: Isiah Davis MD, [facility] PROCEDURE PERFORMED: 1. Selective right and left coronary angiogram 2. Successful balloon angioplasty of the left anterior descending artery with adjunctive use of intravascular ultrasound and aspiration thrombectomy INDICATION: Acute anterior ST elevation myocardial infarction in this 82-year-old gentleman who was admitted to the hospital recently with acute non-STEMI and he underwent a heart catheterization and was found to have severe disease involving the proximal LAD which was stented. COMPLICATION: None APPROACH: Right radial artery LEVEL OF SEDATION: Moderate with the sedation time off 49 minutes. Door to balloon was 78 minutes PROCEDURE DESCRIPTION: After obtaining an informed consent the patient was brought to the cardiac labor economist. The right radial artery was cannulated using micropuncture technique, the micropuncture wire passed easily then I placed 6-Pashto sheath at the right radial artery. I gave the patient 2 mg of verapamil intra-arterially. Heparin was already started in the emergency department. Selective left coronary angiogram was performed using JL 3.5 guiding catheter. After that I did intervene on the LAD. After that I did selective right coronary angiogram. The procedure was completed was no complication SELECTIVE CORONARY ANGIOGRAM: The right coronary artery: Large-caliber vessel and a dominant vessel. The RCA has mild to moderate disease in the midportion. Left main: Has mild to moderate nonobstructive coronary artery disease The left circumflex: Large-caliber vessel non-dominant vessel. The LCx proximally gives rises into an appointment 1 which has an ostial lesion appears to be in the range of 50- 60%. 0.2 has a critical lesion in the ostium. OMS 3 appears to have mild disease only. The circumflex continue after that in the AV groove as a moderate caliber vessel The left anterior descending artery: Is acutely occluded in the proximal portion in a stented segment. PCI OF THE LAD: Anticoagulation was achieved with heparin with continuous ACT monitoring. Subsequently after that I did wire the LAD using a whisper wire. I did after that S patient thrombectomy using the export catheter. Intravascular ultrasound was performed and showed a diameter of the LAD appears to be in the range of 3 mm. Initially I did balloon angioplasty using 2.5 x 15 mm balloon and subsequently I did balloon angioplasty again using the stent 2.75 x 15 mm noncompliant balloon. It was inflated under higher pressure of almost 20 melina. The following angiogram showed good angiographic results was MARYANN-3 flow. 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 I did perform successful angioplasty of the LAD with an excellent angiographic results and reduction of stenosis from 100% to 0% POSTPROCEDURE MANAGEMENT: #1 dual antiplatelet therapy using aspirin and Brilinta for 12 month #2 aggressive cholesterol control #3 follow-up with the patient
--- NOTE | 2022-10-10 23:07 | P.CRDCN ---
History of Present Illness Consult date: 10/10/22 Chief complaint: Chest pain History of present illness: The patient is a pleasant 82-year-old gentleman with a past medical history significant for CAD and prior stenting of the LAD recently as well as hypertension and dyslipidemia presented to the emergency department complaining of chest discomfort. He was just discharged from the hospital recently after he presented with a chest discomfort and diagnosed with acute coronary syndrome. He underwent a heart catheterization at that point and was found to have critical disease involving the LAD which was stented. He was discharged in stable medical condition. Unfortunately he has not been taking his medications including dual antiplatelet therapy. The exact reason for that is unknown. He presented back to the hospital complaining of 6-12 hours of ongoing chest discomfort as a pressure on the chest was no radiation but it was associated with shortness of breath. In the emergency department he underwent an EKG and was found to have an acute anterior ST elevation myocardial infarction. He was taken emergently to the cardiac mechanical shop laborer where emergent heart catheterization revealed late stent thrombosis of the LAD. We did perform successful angioplasty of the LAD with no need to deployed another stent with a good angiographic results and MARYANN-3 flow. Procedure was performed from right radial approach and with no complication with the patient being chest pain-free by the end of the procedure and decrease in the ST segment elevation on the EKG. Past Medical History Past Medical History: CVA/TIA, Diabetes Mellitus, Hypertension, Myocardial Infarction ([place]) Additional Past Medical History / Comment(s): Stroke in December of 2021 Last Myocardial Infarction Date:: 10/03/22 History of Any Multi-Drug Resistant Organisms: None Reported Past Surgical History: Orthopedic Surgery Additional Past Surgical History / Comment(s): Urethral surgery-unsure of date Past Anesthesia/Blood Transfusion Reactions: No Reported Reaction Past Psychological History: No Psychological Hx Reported, Depression, PTSD Smoking Status: Former smoker Past Alcohol Use History: None Reported Past Drug Use History: None Reported - Past Family History Father Family Medical History: Hypertension Medications and Allergies Home Medications Medication Instructions Recorded Confirmed Type Aspirin [[place] Aspirin EC] 81 mg PO DAILY 10/03/22 10/10/22 History Atorvastatin Calcium [Lipitor] 80 mg PO HS 10/03/22 10/10/22 History Carboxymethylcellulose Sodium 1 drop BOTH EYES QID 10/03/22 10/10/22 History [Thera Tears] DULoxetine HCL [Cymbalta] 30 mg PO DAILY 10/03/22 10/10/22 History Erythromycin Ophth Oint (1 gm) 1 applic TOPICAL HS 10/03/22 10/10/22 History [Ilotycin Ophth Oint (1 gm)] Finasteride [Proscar] 5 mg PO DAILY 10/03/22 10/10/22 History Glimepiride [Amaryl] 1 mg PO DAILY 10/03/22 10/10/22 History Insulin Glargine,Hum.rec.anlog 15 units SQ DAILY 10/03/22 10/10/22 History [Insulin Glargine Solostar] Magnesium Oxide 400 mg PO DAILY 10/03/22 10/10/22 History Omeprazole [PriLOSEC] 20 mg PO DAILY 10/03/22 10/10/22 History Sennosides/Docusate Sodium [Senna 1 tab PO DAILY PRN 10/03/22 10/10/22 History Plus 8.6-50 mg Tablet] Tamsulosin HCl [Flomax] 0.8 mg PO W/SUPPER 10/03/22 10/10/22 History glipiZIDE [Glucotrol] 10 mg PO DAILY 10/03/22 10/10/22 History Amoxic-Pot Clav 875-125Mg 1 tab PO Q12HR 5 Days #10 tab 10/07/22 10/10/22 Rx [Augmentin 875-125] Clopidogrel [Plavix] 75 mg PO DAILY #90 tab 10/07/22 10/10/22 Rx Metoprolol Succinate (ER) [Toprol 50 mg PO BID #60 tab 10/07/22 10/10/22 Rx XL] Nitroglycerin Sl Tabs [Nitrostat] 0.4 mg SUBLINGUAL Q5M PRN #30 tab 10/07/22 10/10/22 Rx lisinopriL [Zestril] 20 mg PO DAILY #30 tab 10/07/22 10/10/22 Rx Allergies Allergy/AdvReac Type Severity Reaction Status Date / Time No Known Allergies Allergy Verified 10/10/22 21:17 Physical Exam Vitals: Vital Signs Pulse Resp BP Pulse Ox 10/10/22 21:50 85 16 213/122 100 10/10/22 21:30 77 20 200/102 100 10/10/22 21:15 72 18 196/160 100 10/10/22 21:08 222/100 10/10/22 21:07 73 16 214/91 100 10/10/22 21:00 75 16 100 Intake and Output 10/10/22 10/10/22 10/11/22 14:59 22:59 06:59 Intake Total 400.15 Balance 400.15 Intake: IV 400 Intake, IV Titration 0.15 Amount Nitroglycerin-D5w Pmx 50 0.15 mg In Dextrose/Water 1 250ml.bag @ 5 MCG/MIN 1.5 mls/hr IV .Q24H ONE Rx#: [id number] Other: Weight 72.575 kg - Constitutional General appearance: no acute distress - Respiratory Respiratory: bilateral: CTA - Cardiovascular Rhythm: regular Abnormal Heart Sounds: systolic murmur Results 10/10/22 21:07 10/10/22 21:07 Cardiac Enzymes 10/10/22 10/10/22 Range/Units 21:07 21:07 AST 30 (17-59) U/L CK-MB (CK-2) 1.2 (0.0-2.4) ng/mL Troponin I 0.449 H* (0.000-0.034) ng/mL Coagulation 10/10/22 Range/Units 21:07 PT 10.2 (9.0-12.0) sec APTT 25.9 (22.0-30.0) sec CBC 10/10/22 Range/Units 21:07 WBC 7.0 (3.8-10.6) k/uL RBC 4.02 L (4.30-5.90) m/uL Hgb 10.9 L (13.0-17.5) gm/dL Hct 33.5 L (39.0-53.0) % Plt Count 329 (150-450) k/uL Comprehensive Metabolic Panel 10/10/22 Range/Units 21:07 Sodium 135 L (137-145) mmol/L Potassium 4.7 (3.5-5.1) mmol/L Chloride 103 (98-107) mmol/L Carbon Dioxide 25 (22-30) mmol/L BUN 16 (9-20) mg/dL Creatinine 1.20 (0.66-1.25) mg/dL Glucose 297 H (74-99) mg/dL Calcium 8.9 (8.4-10.2) mg/dL AST 30 (17-59) U/L ALT 27 (4-49) U/L Alkaline Phosphatase 138 H (38-126) U/L Total Protein 6.6 (6.3-8.2) g/dL Albumin 3.6 (3.5-5.0) g/dL Current Medications Generic Name Dose Route Start Last Admin Trade Name Freq PRN Reason Stop Dose Admin Al Hydroxide/Mg Hydroxide 30 ml 10/11/22 00:00 Mag Hydrox/Al Hydrox/Simeth 30 Ml Cup PO Q4HR PRN Heartburn Artificial Tears 1 drops 10/11/22 09:00 Artificial Tears-Hypromellose Drops 15 Ml Btl BOTH EYES QID [facility] Aspirin 81 mg 10/11/22 09:00 Aspirin 81 Mg PO DAILY [facility] Atorvastatin Calcium 80 mg 10/11/22 21:00 Atorvastatin 80 Mg Tab PO HS [facility] Atropine Sulfate 0.5 mg 10/10/22 22:56 Atropine Sulfate 0.1 Mg/Ml 10ml Syringe IV ONCE PRN Symptomatic Bradycardia Duloxetine HCl 30 mg 10/11/22 09:00 Duloxetine Hcl 30 Mg Capsule.Dr PO DAILY [facility] Finasteride 5 mg 10/11/22 09:00 Finasteride 5 Mg Tab PO DAILY [facility] Glimepiride 1 mg 10/11/22 09:00 Glimepiride 1 Mg Tab PO DAILY [facility] Glipizide 10 mg 10/11/22 09:00 Glipizide 10 Mg Tab PO DAILY [facility] Heparin Sodium (Porcine) 0 unit 10/10/22 21:18 Heparin Sodium 1,000 Un/Ml (10ml Vl) IV PER PROTOCOL PRN Low PTT Protocol Heparin Sodium/Sodium Chloride 250 mls @ 8.709 mls/hr 10/10/22 21:30 10/10/22 21:37 25,000 unit/ Sodium Chloride IV 12 units/kg/hr .Q24H YASEMIN 8.709 mls/hr Administration Protocol 12 UNITS/KG/HR Nitroglycerin/Dextrose 50 mg/ 250 mls @ 1.5 mls/hr 10/10/22 21:19 10/10/22 21:45 IV Solution IV 10/11/22 21:18 10 mcg/min .Q24H ONE 3 mls/hr Titration Protocol 5 MCG/MIN Sodium Chloride 1,000 ml/ IV 1,000 mls @ 75 mls/hr 10/10/22 23:00 Solution IV 10/11/22 04:01 .[id number] [facility] Insulin Detemir 15 unit 10/11/22 09:00 Insulin Detemir (Levemir) 100 Unit/Ml Syr SQ DAILY [facility] Lisinopril 20 mg 10/11/22 09:00 Lisinopril 20 Mg Tab PO DAILY [facility] Magnesium Oxide 400 mg 10/11/22 09:00 Magnesium Oxide 400 Mg Tab PO DAILY [facility] Metoprolol Succinate 50 mg 10/11/22 09:00 Metoprolol Succinate (Er) 50 Mg Tab.Er.24h PO BID [facility] Miscellaneous Information 1 each 10/10/22 22:56 Rx Info: Iv Contrast Was Given 1 Each Misc MISCELLANE 10/12/22 22:57 DAILY PRN Per Protocol Naloxone HCl 0.2 mg 10/10/22 21:32 Naloxone 0.4 Mg/Ml 1 Ml Vial IV Q2M PRN Opioid Reversal Nitroglycerin 0.4 mg 10/10/22 22:55 Nitroglycerin Sl Tabs 0.4 Mg Tab SUBLINGUAL Q5M PRN Chest Pain Nitroglycerin 0.4 mg 10/10/22 22:56 Nitroglycerin Sl Tabs 0.4 Mg Tab SUBLINGUAL Q5M PRN Chest Pain Pantoprazole Sodium 40 mg 10/11/22 09:00 Pantoprazole 40 Mg Tablet PO DAILY [facility] Senna/Docusate Sodium 1 each 10/11/22 09:00 Sennosides-Docusate Sodium 1 Each Tab PO DAILY PRN Constipation Tamsulosin HCl 0.8 mg 10/11/22 17:30 Tamsulosin 0.4 Mg Cap.Er.24h PO W/SUPPER [facility] Zolpidem Tartrate 5 mg 10/10/22 22:56 Zolpidem 5 Mg Tab PO HS PRN Insomnia Intake and Output 10/10/22 10/10/22 10/11/22 14:59 22:59 06:59 Intake Total 400.15 Balance 400.15 Intake: IV 400 Intake, IV Titration 0.15 Amount Nitroglycerin-D5w Pmx 50 0.15 mg In Dextrose/Water 1 250ml.bag @ 5 MCG/MIN 1.5 mls/hr IV .Q24H [facility] Rx#: [id number] Other: Weight 72.575 kg Patient Weight 10/11/22 06:59 Weight 72.575 kg 10/10/22 21:07 10/10/22 21:07 Assessment and Plan Assessment: Assessment #1 late stent thrombosis of the LAD #2 status post balloon angioplasty of the LAD #3 noncompliance with medications #4 hypertension #5 dyslipidemia Plan #1 continue the current medical regimen including dual antiplatelet therapy #2 aggressive cholesterol control #3 risk factors modification #4 an echocardiogram was Doppler #5 follow-up with the patient
[2022-10-10 23:22] LABS: Glucose,Whole Blood 315 mg/dL (70-110)
[2022-10-11] MEDS ORDERED: MAG HYDROX/AL HYDROX/SIMETH 30 ML CUP PO PRN
[2022-10-11] MEDS ORDERED: INSULIN ASPART (NovoLOG) 100 UNIT/ML VIAL SQ ONE (00:06)
[2022-10-11] MEDS ORDERED: MAGNESIUM SULFATE-D5W PMX 1 GM in DEXTROSE/WATER 1 100ML.BAG IVPB ONE (00:06)
--- NOTE | 2022-10-11 03:01 | P.HPIM ---
History of Present Illness H&P Date: 10/10/22 Chief Complaint: chest pain 82 year old male with DM , hypetension, CAD s/p stents patient coming in for chest pain evaluation, he was relaxed resting, watching tv when suddenly experienced chest pressure 8/10 in severity non radiating , associated with heavy breathing, he took some nitro pills and help ease down the pain, but he was concerned that he is having another heart attack. patient admits that he was non compliant with dual antiplatelets. he was recently hospitalized and discharged 3 days ago, where he was taken to mill laborer for STEMI and required PCI to proximal LAD with LUCY. he was also noted to be COIVD positive at the time. echo showed LVEF of 55%. he was also diagnosed and treated for UTI, urine culture was positive. patient EKG showed ST elevation on the precordial leads, cardiology recommended taking the patient to the mill laborer to rule out stent restenosis. patient was started on heparin drip and nitro infusion. limited blood work available at this time, showing mild chronic stable anemia. no trops available no renal function or electrolytes. EKG showed ST elevation on precordial leads. Review of Systems Pertinent positives as noted in HPI. All other systems were reviewed and are negative Past Medical History Past Medical History: CVA/TIA, Diabetes Mellitus, Hypertension, Myocardial Infarction ([place]) Additional Past Medical History / Comment(s): Stroke in December of 2021 Last Myocardial Infarction Date:: 10/03/22 History of Any Multi-Drug Resistant Organisms: None Reported Past Surgical History: Orthopedic Surgery Additional Past Surgical History / Comment(s): Urethral surgery-unsure of date Past Anesthesia/Blood Transfusion Reactions: No Reported Reaction Past Psychological History: No Psychological Hx Reported, Depression, PTSD Smoking Status: Former smoker Past Alcohol Use History: None Reported Past Drug Use History: None Reported - Past Family History Father Family Medical History: Hypertension Medications and Allergies Home Medications Medication Instructions Recorded Confirmed Type Aspirin [[place] Aspirin EC] 81 mg PO DAILY 10/03/22 10/10/22 History Atorvastatin Calcium [Lipitor] 80 mg PO HS 10/03/22 10/10/22 History Carboxymethylcellulose Sodium 1 drop BOTH EYES QID 10/03/22 10/10/22 History [Thera Tears] DULoxetine HCL [Cymbalta] 30 mg PO DAILY 10/03/22 10/10/22 History Erythromycin Ophth Oint (1 gm) 1 applic TOPICAL HS 10/03/22 10/10/22 History [Ilotycin Ophth Oint (1 gm)] Finasteride [Proscar] 5 mg PO DAILY 10/03/22 10/10/22 History Glimepiride [Amaryl] 1 mg PO DAILY 10/03/22 10/10/22 History Insulin Glargine,Hum.rec.anlog 15 units SQ DAILY 10/03/22 10/10/22 History [Insulin Glargine Solostar] Magnesium Oxide 400 mg PO DAILY 10/03/22 10/10/22 History Omeprazole [PriLOSEC] 20 mg PO DAILY 10/03/22 10/10/22 History Sennosides/Docusate Sodium [Senna 1 tab PO DAILY PRN 10/03/22 10/10/22 History Plus 8.6-50 mg Tablet] Tamsulosin HCl [Flomax] 0.8 mg PO W/SUPPER 10/03/22 10/10/22 History glipiZIDE [Glucotrol] 10 mg PO DAILY 10/03/22 10/10/22 History Amoxic-Pot Clav 875-125Mg 1 tab PO Q12HR 5 Days #10 tab 10/07/22 10/10/22 Rx [Augmentin 875-125] Clopidogrel [Plavix] 75 mg PO DAILY #90 tab 10/07/22 10/10/22 Rx Metoprolol Succinate (ER) [Toprol 50 mg PO BID #60 tab 10/07/22 10/10/22 Rx XL] Nitroglycerin Sl Tabs [Nitrostat] 0.4 mg SUBLINGUAL Q5M PRN #30 tab 10/07/22 10/10/22 Rx lisinopriL [Zestril] 20 mg PO DAILY #30 tab 10/07/22 10/10/22 Rx Allergies Allergy/AdvReac Type Severity Reaction Status Date / Time No Known Allergies Allergy Verified 10/10/22 21:17 Physical Exam Vitals: Vital Signs Pulse Resp BP Pulse Ox 10/10/22 21:08 222/100 10/10/22 21:00 75 16 100 Intake and Output 10/10/22 10/10/22 10/10/22 06:59 14:59 22:59 Other: Weight 72.575 kg Constitutional: No acute distress, conversant, pleasant Eyes: Anicteric sclerae, moist conjunctiva, Pupils equal round reactive to light ENMT: NC/AT Oropharynx clear, no erythema, or exudates Neck: Supple, no masses, or JVD No carotid bruits No thyromegaly Lungs: Clear to auscultation Clear to percussion Normal respiratory effort, no accessory muscle use Cardiovascular: Heart regular in rate and rhythm, No murmurs, gallops, or rubs No peripheral edema Abdominal: Soft Nontender, no guarding, rebound or rigidity Abdomen moving with respiration Normoactive bowel sounds No hepatomegaly, No splenomegaly No palpable mass No abdominal wall hernia noted Skin: Normal temperature, tone, texture, turgor No induration No subcutaneous nodules No rash, lesions No ulcers Extremities: No digital cyanosis No clubbing Pedal pulses intact and symmetrical Radial pulses intact and symmetrical No calf tenderness Psychiatric: Alert and oriented to person, place and time Appropriate affect fair judgement Neuro Muscles Strength 5/5 in all 4 extremities Sensation to light touch grossly present throughout Cranial nerves II-XII grossly intact Lymphatics: no palpable cervical or supraclavicular lymph nodes Results CBC & Chem 7: 10/10/22 21:07 10/10/22 21:07 Labs: Abnormal Lab Results - Last 24 Hours (Table) 10/10/22 10/10/22 Range/Units 21:07 21:08 RBC 4.02 L (4.30-5.90) m/uL Hgb 10.9 L (13.0-17.5) gm/dL Hct 33.5 L (39.0-53.0) % POC Glucose (mg/dL) 311 H (70-110) mg/dL Assessment and Plan Assessment: case discussed with ED doc, an 82 year old male with recent hospital stay for STEMI , requiring LAD stent, coming in 3 days after discharge with chest pain , and new ST elevation on precordial leads. patient non compliant with his dual antiplatelets. mill laborer activated and patient taken to rule out stent Thrombosis , patient was started on heparin drip and nitro infusion. blood work , showing chronic stable mild anemia. hypomagnesemia , elevated troponins, . Left heart cath showed late stent thrombosis , required balloon angioplasty with good reperfusion. patient admitted to the ICU for further care and monitoring STEMI heparin drip nitro infusion recent PCI to the LAD cardiology consult pain control monitor vital signs resume ASA, statin , plavix left heart cath showed late stent thrombosis , with successful balloon angioplasty . patient to continue on dual antiplatelets. hypomagnesemia replace and follow up levels in AM hyperglycemia insulin sliding scale resume home regimen recent covid pneumonia stable vital signs not requiring oxygen continue with symptomatic control of cough chronic conditions chronic mild anemia recent UTI DM , insulin sliding scale , resume home meds. hypertension resume metoprolol full code DVT PPX heparin sc tid to be started after left heart cath
[2022-10-11 04:14] LABS: Calcium 8.3 mg/dL (8.4-10.2); Magnesium 1.8 mg/dL (1.6-2.3); Potassium 4.4 mmol/L (3.5-5.1)
[2022-10-11 05:02] LABS: Glucose,Whole Blood 205 mg/dL (70-110)
[2022-10-11] MEDS: INSULIN ASPART (NovoLOG) 100 UNIT/ML VIAL SQ SCH ×5 (06:45→19:52)
--- NOTE | 2022-10-11 07:19 | P.PN ---
Subjective Progress Note Date: 10/11/22 Principal diagnosis: Acute coronary syndrome The patient is a pleasant 82-year-old gentleman who underwent recently stenting of the LAD presented back to the hospital complaining of chest discomfort and EKG finding consistent with acute inferior ST elevation myocardial infarction be proportionately he was not taking his oral anticoagulation. He underwent successful angioplasty of the LAD without adding other stent. The procedure was performed from the right radial approach. 10/11/2022 The patient was seen and evaluated this morning. He is asymptomatic. He is mechanically stable with the pressure being slightly elevated. Echo still pending. He is on dual antiplatelet therapy along with beta juno and high intensity statin. Further cardiac standpoint of view, I would continue the current medical regimen with increasing the dose of beta juno for better bloo d pressure control and follow-up with the echocardiogram. Further recommendation to follow. Objective - Vital Signs Vital signs: Vital Signs Temp 98.2 F 10/11/22 04:00 Pulse 78 10/11/22 07:03 Resp 18 10/11/22 07:03 BP 144/64 10/11/22 07:03 Pulse Ox 99 10/11/22 07:03 FiO2 Intake & Output 10/10/22 10/11/22 10/11/22 18:59 06:59 18:59 Intake Total 1147.728 75 Output Total 850 Balance 297.728 75 Weight 80 kg Intake: IV 400 Intake, IV Titration 647.728 75 Amount Heparin Sod,Pork in 0.45% 17.128 NaCl 25,000 unit In 0.45 % NaCl 1 250ml.bag @ 12 UNITS/KG/HR 8.709 mls/hr IV .Q24H [facility] Rx#: [id number] Magnesium Sulfate-D5w Pmx 100 1 gm In Dextrose/Water 1 100ml.bag @ 100 mls/hr IVPB ONCE ONE Rx#: [id number] Nitroglycerin-D5w Pmx 50 5.60 mg In Dextrose/Water 1 250ml.bag @ 5 MCG/MIN 1.5 mls/hr IV .Q24H [facility] Rx#: [id number] Sodium Chloride 0.9% 1, 525 75 000 ml In Empty Bag 1 bag @ 75 mls/hr IV .[id number] [facility] Rx#:[id number] Oral 100 Output: Urine 850 Other: Voiding Method Urinal - Constitutional General appearance: Present: no acute distress - Respiratory Respiratory: bilateral: diminished - Cardiovascular Rhythm: regular - Labs CBC & Chem 7: 10/10/22 21:07 10/11/22 03:22 Labs: Abnormal Lab Results - Last 24 Hours (Table) 10/10/22 10/10/22 10/10/22 Range/Units 21:07 21:07 21:07 RBC 4.02 L (4.30-5.90) m/uL Hgb 10.9 L (13.0-17.5) gm/dL Hct 33.5 L (39.0-53.0) % Sodium 135 L (137-145) mmol/L Glucose 297 H (74-99) mg/dL POC Glucose (mg/dL) (70-110) mg/dL Calcium (8.4-10.2) mg/dL Magnesium 1.5 L (1.6-2.3) mg/dL Alkaline Phosphatase 138 H (38-126) U/L Troponin I 0.449 H* (0.000-0.034) ng/mL 10/10/22 10/10/22 10/11/22 Range/Units 21:08 23:20 03:22 RBC (4.30-5.90) m/uL Hgb (13.0-17.5) gm/dL Hct (39.0-53.0) % Sodium 133 L (137-145) mmol/L Glucose 211 H (74-99) mg/dL POC Glucose (mg/dL) 311 H 315 H (70-110) mg/dL Calcium 8.3 L (8.4-10.2) mg/dL Magnesium (1.6-2.3) mg/dL Alkaline Phosphatase (38-126) U/L Troponin I (0.000-0.034) ng/mL 10/11/22 Range/Units 05:00 RBC (4.30-5.90) m/uL Hgb (13.0-17.5) gm/dL Hct (39.0-53.0) % Sodium (137-145) mmol/L Glucose (74-99) mg/dL POC Glucose (mg/dL) 205 H (70-110) mg/dL Calcium (8.4-10.2) mg/dL Magnesium (1.6-2.3) mg/dL Alkaline Phosphatase (38-126) U/L Troponin I (0.000-0.034) ng/mL Assessment and Plan Assessment: Assessment #1 late stent thrombosis of the LAD #2 status post balloon angioplasty of the LAD #3 noncompliance with medications #4 hypertension #5 dyslipidemia Plan #1 continue the current medical regimen including dual antiplatelet therapy #2 aggressive cholesterol control #3 risk factors modification #4 an echocardiogram was Doppler #5 increase the dose of beta juno
[2022-10-11] MEDS ORDERED: HEPARIN SODIUM,PORCINE/PF 5,000 UNIT/0.5 ML SYRINGE SQ SCH ×2 (08:00→21:00)
[2022-10-11] MEDS: ARTIFICIAL TEARS-HYPROMELLOSE DROPS 15 ML BTL BOTH EYES SCH ×4 (08:40→19:53)
[2022-10-11] MEDS: ASPIRIN 81 MG PO SCH (08:40)
[2022-10-11] MEDS: CLOPIDOGREL 75 MG TAB PO SCH (08:41)
[2022-10-11] MEDS: DULoxetine HCL 30 MG CAPSULE.DR PO SCH (08:41)
[2022-10-11] MEDS: FINASTERIDE 5 MG TAB PO SCH (08:41)
[2022-10-11] MEDS: MAGNESIUM OXIDE 400 MG TAB PO SCH (08:42)
[2022-10-11] MEDS: METOPROLOL SUCCINATE (ER) 25 MG TAB.ER.24H PO SCH ×2 (08:43→19:52)
[2022-10-11] MEDS: PANTOPRAZOLE 40 MG TABLET PO SCH (08:43)
[2022-10-11] MEDS ORDERED: lisinopriL 20 MG TAB PO SCH (09:00)
[2022-10-11] MEDS ORDERED: hydroCHLOROthiazide 25 MG TAB PO SCH (09:00)
[2022-10-11] MEDS ORDERED: INSULIN DETEMIR (LEVEMIR) 100 UNIT/ML SYR SQ SCH (09:00)
[2022-10-11] MEDS ORDERED: glipiZIDE 10 MG TAB PO SCH (09:00)
[2022-10-11] MEDS ORDERED: SENNOSIDES-DOCUSATE SODIUM 1 EACH TAB PO PRN (09:00)
[2022-10-11] MEDS ORDERED: METOPROLOL SUCCINATE (ER) 50 MG TAB.ER.24H PO SCH (09:00)
[2022-10-11] MEDS ORDERED: GLIMEPIRIDE 1 MG TAB PO SCH (09:00)
[2022-10-11 10:20] VITALS: BMI 29.3
[2022-10-11 11:42] LABS: Glucose,Whole Blood 342 mg/dL (70-110)
[2022-10-11] MEDS ORDERED: BENZONATATE 100 MG CAP PO PRN (13:26)
[2022-10-11] MEDS ORDERED: ACETAMINOPHEN TAB 325 MG TAB PO PRN (13:26)
--- NOTE | 2022-10-11 14:10 | P.PN ---
Subjective Progress Note Date: 10/11/22 82 year old male with DM, history of CVA, PTSD/depression, hypetension, CAD who was recently hospitalized and discharged 3 days ago, where he was taken to collaborating supervising physician for STEMI and required PCI to proximal LAD with LUCY presented to the ED for chest pain that was sudden onset while watching TV. Patient admits that he was non compliant with dual antiplatelets. Patient EKG showed ST elevation on the precordial leads, cardiology recommended taking the patient to the collaborating supervising physician to rule out stent restenosis. Patient was started on heparin drip and nitro infusion and admitted for further management of symptoms. He underwent coronary angiogram with balloon angioplasty of the left anterior descending. Patient was seen and examined. No acute events overnight. Patient reports significant improvement in his chest pain. He denies any shortness of breath or palpitations. He reports a dry cough that is chronic in nature. General: non toxic, no distress, appears at stated age Derm: warm, dry Head: atraumatic, normocephalic, symmetric Eyes: EOMI, no lid lag, anicteric sclera Mouth: no lip lesion, mucus membranes moist Cardiovascular: S1S2 reg, no murmur Lungs: CTA bilateral, no rhonchi, no rales , no accessory muscle use Ext: no gross muscle atrophy, no edema, no contractures Neuro: no focal neuro deficits Psych: Alert, oriented, appropriate affect #ST elevation [place] #Diabetes mellitus with hyperglycemia #COVID-19 #Normocytic anemia Resolved: Hypomagnesemia Chronic conditions: Hypertension, history of CVA, PTSD/depression Patient is status post coronary antral gram with balloon angioplasty of the LAD. Continue aspirin, Lipitor, Plavix, metoprolol. Appreciate cardiology recommendations. Telemetry monitoring. [id number] glucose 342 persistently elevated. Hemoglobin A1c 9.29 September 2022. Increase Levemir to 20 units daily. Start NovoLog 5 units 3 times a day with meals. Medium dose sliding scale. Patient is asymptomatic with regard to COVID-19 diagnosis. No further treatment. Home medications reviewed and restarted. Objective - Vital Signs Vital signs: Vital Signs Temp 98.2 F 10/11/22 08:00 Pulse 73 10/11/22 11:00 Resp 20 10/11/22 11:00 BP 163/69 10/11/22 11:00 Pulse Ox 95 10/11/22 11:00 FiO2 Intake & Output 01/20/23 01/21/23 01/21/23 18:59 06:59 18:59 Intake Total 1147.728 350 Output Total 850 0 Balance 297.728 350 Weight 80 kg 80 kg Intake: IV 400 Intake, IV Titration 647.728 150 Amount Heparin Sod,Pork in 0.45% 17.128 NaCl 25,000 unit In 0.45 % NaCl 1 250ml.bag @ 12 UNITS/KG/HR 8.709 mls/hr IV .Q24H [facility] Rx#: [id number] Magnesium Sulfate-D5w Pmx 100 1 gm In Dextrose/Water 1 100ml.bag @ 100 mls/hr IVPB ONCE ONE Rx#: [id number] Nitroglycerin-D5w Pmx 50 5.60 mg In Dextrose/Water 1 250ml.bag @ 5 MCG/MIN 1.5 mls/hr IV .Q24H [facility] Rx#: [id number] Sodium Chloride 0.9% 1, 525 150 000 ml In Empty Bag 1 bag @ 75 mls/hr IV .[id number] [facility] Rx#:[id number] Oral 100 200 Output: Urine 850 0 Other: Voiding Method Urinal Urinal - Labs CBC & Chem 7: 10/10/22 21:07 10/11/22 03:22 Labs: Abnormal Lab Results - Last 24 Hours (Table) 10/10/22 10/10/22 10/10/22 Range/Units 21:07 21:07 21:07 RBC 4.02 L (4.30-5.90) m/uL Hgb 10.9 L (13.0-17.5) gm/dL Hct 33.5 L (39.0-53.0) % Sodium 135 L (137-145) mmol/L Glucose 297 H (74-99) mg/dL POC Glucose (mg/dL) (70-110) mg/dL Calcium (8.4-10.2) mg/dL Magnesium 1.5 L (1.6-2.3) mg/dL Alkaline Phosphatase 138 H (38-126) U/L Troponin I 0.449 H* (0.000-0.034) ng/mL 10/10/22 10/10/22 10/11/22 Range/Units 21:08 23:20 03:22 RBC (4.30-5.90) m/uL Hgb (13.0-17.5) gm/dL Hct (39.0-53.0) % Sodium 133 L (137-145) mmol/L Glucose 211 H (74-99) mg/dL POC Glucose (mg/dL) 311 H 315 H (70-110) mg/dL Calcium 8.3 L (8.4-10.2) mg/dL Magnesium (1.6-2.3) mg/dL Alkaline Phosphatase (38-126) U/L Troponin I (0.000-0.034) ng/mL 10/11/22 10/11/22 Range/Units 05:00 11:39 RBC (4.30-5.90) m/uL Hgb (13.0-17.5) gm/dL Hct (39.0-53.0) % Sodium (137-145) mmol/L Glucose (74-99) mg/dL POC Glucose (mg/dL) 205 H 342 H (70-110) mg/dL Calcium (8.4-10.2) mg/dL Magnesium (1.6-2.3) mg/dL Alkaline Phosphatase (38-126) U/L Troponin I (0.000-0.034) ng/mL
[2022-10-11 16:35] LABS: Glucose,Whole Blood 81 mg/dL (70-110)
[2022-10-11] MEDS: TAMSULOSIN 0.4 MG CAP.ER.24H PO SCH (17:01)
[2022-10-11 19:48] LABS: Glucose,Whole Blood 175 mg/dL (70-110)
[2022-10-11] MEDS: ATORVASTATIN 80 MG TAB PO SCH (19:52)
[2022-10-12 05:26] LABS: HCT 29.3 % (39.0-53.0); HGB 9.6 gm/dL (13.0-17.5); MCH 27.5 pg (25.0-35.0); MCHC 32.7 g/dL (31.0-37.0); Platelet Count 247 k/uL (150-450); RBC 3.49 m/uL (4.30-5.90); RDW 13.7 % (11.5-15.5)
[2022-10-12 05:36] LABS: Calcium 7.9 mg/dL (8.4-10.2); Magnesium 1.6 mg/dL (1.6-2.3)
[2022-10-12 05:38] LABS: Potassium 4.9 mmol/L (3.5-5.1)
[2022-10-12] MEDS ORDERED: Magnesium Replacement Protocol 1 EACH MISC MISCELLANE PRN (05:41)
[2022-10-12] MEDS: MAGNESIUM SULFATE-D5W PMX 1 GM in DEXTROSE/WATER 1 100ML.BAG IVPB SCH ×2 (05:57→07:07)
[2022-10-12 06:05] LABS: Glucose,Whole Blood 123 mg/dL (70-110)
[2022-10-12] MEDS: INSULIN ASPART (NovoLOG) 100 UNIT/ML VIAL SQ SCH ×7 (06:05→20:46)
--- NOTE | 2022-10-12 07:28 | P.PN ---
Subjective Progress Note Date: 10/12/22 Principal diagnosis: Acute coronary syndrome The patient is a pleasant 82-year-old gentleman who underwent recently stenting of the LAD presented back to the hospital complaining of chest discomfort and EKG finding consistent with acute inferior ST elevation myocardial infarction be proportionately he was not taking his oral anticoagulation. He underwent successful angioplasty of the LAD without adding other stent. The procedure was performed from the right radial approach. 10/11/2022 The patient was seen and evaluated this morning. He is asymptomatic. He is mechanically stable with the pressure being slightly elevated. Echo still pending. He is on dual antiplatelet therapy along with beta juno and high intensity statin. Further cardiac standpoint of view, I would continue the current medical regimen with increasing the dose of beta juno for better bloo d pressure control and follow-up with the echocardiogram. Further recommendation to follow. October 122022 The patient was seen and evaluated this morning. He is asymptomatic in terms of chest pain or shortness of breath. His pressure has been low. I'm going to decrease the dose of lisinopril and also stop hydrochlorothiazide. He has been maintaining normal sinus mechanism. He is on dual antiplatelet therapy along with high intensity statin. Echo was performed yesterday and still pending. We'll follow-up with that. Objective - Vital Signs Vital signs: Vital Signs Temp 98.4 F 10/12/22 04:00 Pulse 64 10/12/22 07:00 Resp 20 10/12/22 07:00 BP 89/56 10/12/22 07:00 Pulse Ox 99 10/12/22 07:00 FiO2 Intake & Output 10/11/22 10/12/22 10/12/22 18:59 06:59 18:59 Intake Total 850 100 100 Output Total 100 300 0 Balance 750 -200 100 Weight 80 kg 77.3 kg Intake: Intake, IV Titration 150 100 100 Amount Magnesium Sulfate-D5w Pmx 100 100 1 gm In Dextrose/Water 1 100ml.bag @ 100 mls/hr IVPB Q1H [facility] Rx#: [id number] Sodium Chloride 0.9% 1, 150 000 ml In Empty Bag 1 bag @ 75 mls/hr IV .[id number] [facility] Rx#:[id number] Oral 700 Output: Urine 100 300 0 Other: Voiding Method Toilet Toilet Urinal Urinal # Voids 1 # Bowel Movements 1 - Constitutional General appearance: Present: no acute distress - Respiratory Respiratory: bilateral: rales - Cardiovascular Rhythm: regular Abnormal Heart Sounds: Present: systolic murmur - Labs CBC & Chem 7: 10/12/22 05:12 10/12/22 05:12 Labs: Abnormal Lab Results - Last 24 Hours (Table) 10/11/22 10/11/22 10/12/22 Range/Units 11:39 19:47 05:12 RBC 3.49 L (4.30-5.90) m/uL Hgb 9.6 L (13.0-17.5) gm/dL Hct 29.3 L (39.0-53.0) % Sodium (137-145) mmol/L Creatinine (0.66-1.25) mg/dL Glucose (74-99) mg/dL POC Glucose (mg/dL) 342 H 175 H (70-110) mg/dL Calcium (8.4-10.2) mg/dL 10/12/22 10/12/22 Range/Units 05:12 06:03 RBC (4.30-5.90) m/uL Hgb (13.0-17.5) gm/dL Hct (39.0-53.0) % Sodium 130 L (137-145) mmol/L Creatinine 1.56 H (0.66-1.25) mg/dL Glucose 110 H (74-99) mg/dL POC Glucose (mg/dL) 123 H (70-110) mg/dL Calcium 7.9 L (8.4-10.2) mg/dL Assessment and Plan Assessment: Assessment #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
[2022-10-12] MEDS: INSULIN DETEMIR (LEVEMIR) 100 UNIT/ML SYR SQ SCH (09:39)
[2022-10-12] MEDS: METOPROLOL SUCCINATE (ER) 25 MG TAB.ER.24H PO SCH ×2 (10:02→20:55)
[2022-10-12] MEDS: PANTOPRAZOLE 40 MG TABLET PO SCH (10:02)
[2022-10-12] MEDS: lisinopriL 5 MG TAB PO SCH (10:02)
[2022-10-12] MEDS: CLOPIDOGREL 75 MG TAB PO SCH (10:02)
[2022-10-12] MEDS: ASPIRIN 81 MG PO SCH (10:02)
[2022-10-12] MEDS: MAGNESIUM OXIDE 400 MG TAB PO SCH (10:02)
[2022-10-12] MEDS: FINASTERIDE 5 MG TAB PO SCH (10:04)
[2022-10-12] MEDS: DULoxetine HCL 30 MG CAPSULE.DR PO SCH (10:04)
[2022-10-12] MEDS: ARTIFICIAL TEARS-HYPROMELLOSE DROPS 15 ML BTL BOTH EYES SCH ×4 (10:08→20:55)
--- NOTE | 2022-10-12 11:22 | CA ---
Transthoracic Echo Report Name: Gregg Fraser Age: 82 Gender: M : 1940 Exam Date: 10/11/2022 08:29 Exam Location: [facility] Echo Ht (in): 65 Wt (lb): 176 Ordering Physician: Isiah Davis MD ([id number]) Attending/Referring Phys: [employer] Suzanne Hong RDCS Procedure CPT: Indications: ACS Cardiac Hx: Technical Quality: Technically difficult study Contrast 1: Lumason Total Dose (mL): 4 Contrast 2: Total Dose (mL): MEASUREMENTS (Male / Female) Normal Values 2D ECHO LV Diastolic Diameter PLAX 4.5 cm 4.2 - 5.9 / 3.9 - 5.3 cm LV Systolic Diameter PLAX 2.6 cm IVS Diastolic Thickness 1.1 cm 0.6 - 1.0 / 0.6 - 0.9 cm LVPW Diastolic Thickness 1.3 cm 0.6 - 1.0 / 0.6 - 0.9 cm LV Relative Wall Thickness 0.5 LV Diastolic Volume MOD BP 78.1 cm??? 67 - 155 / 56 - 104 cm??? LV Systolic Volume MOD BP 31.6 cm??? 22 - 58 / 19 - 49 cm??? LV Ejection Fraction MOD BP 59.5 % >= 55 % LV Cardiac Index MOD BP 1727.2 cm???/min???m??? LV Diastolic Volume MOD 4C 75.1 cm??? LV Systolic Volume MOD 4C 25.2 cm??? LV Ejection Fraction MOD 4C 66.4 % LV Cardiac Index MOD 4C 1855.6 cm???/min???m??? LV Diastolic Length 4C 7.8 cm LV Systolic Length 4C 6.2 cm LV Diastolic Volume MOD 2C 78.3 cm??? LV Systolic Volume MOD 2C 38.1 cm??? LV Ejection Fraction MOD 2C 51.3 % LV Cardiac Index MOD 2C 1493.4 cm???/min???m??? LV Diastolic Length 2C 8.1 cm LV Systolic Length 2C 6.5 cm FINDINGS Left Ventricle Technically difficult study. Definity was used. Mildly impaired LV function was EF between 45-50% Right Ventricle Right Atrium Left Atrium Mitral Valve Mild mitral regurgitation. Aortic Valve No aortic valve stenosis or regurgitation. Tricuspid Valve Mild tricuspid regurgitation. Pulmonic Valve Pericardium No pericardial effusion. Aorta CONCLUSIONS Mildly impaired all the function with EF between 45-50% Previewed by: Dr. Isiah Davis MD (Electronically Signed) Final Date: 12 October 2022 11:22
[2022-10-12 11:33] LABS: Glucose,Whole Blood 257 mg/dL (70-110)
--- NOTE | 2022-10-12 13:59 | P.PN ---
Subjective Progress Note Date: 10/12/22 82 year old male with DM, history of CVA, PTSD/depression, hypetension, CAD who was recently hospitalized and discharged 3 days ago, where he was taken to wood and wood products labourer for STEMI and required PCI to proximal LAD with LUCY presented to the ED for chest pain that was sudden onset while watching TV. Patient admits that he was non compliant with dual antiplatelets. Patient EKG showed ST elevation on the precordial leads, cardiology recommended taking the patient to the wood and wood products labourer to rule out stent restenosis. Patient was started on heparin drip and nitro infusion and admitted for further management of symptoms. He underwent coronary angiogram with balloon angioplasty of the left anterior descending. Patient was seen and examined. No acute events overnight. Patient reports no more chest pain. He denies any shortness of breath or palpitations. His cough has improved. Noted to be hypotensive today with BP as low as 87/54. General: non toxic, no distress, appears at stated age Derm: warm, dry Head: atraumatic, normocephalic, symmetric Eyes: EOMI, no lid lag, anicteric sclera Mouth: no lip lesion, mucus membranes moist Cardiovascular: S1S2 reg, no murmur Lungs: CTA bilateral, no rhonchi, no rales , no accessory muscle use Ext: no gross muscle atrophy, no edema, no contractures Neuro: no focal neuro deficits Psych: Alert, oriented, appropriate affect #ST elevation [place] #Hyponatremia #Acute kidney injury #Hypotension #Diabetes mellitus with hyperglycemia #COVID-19 #Normocytic anemia Resolved: Hypomagnesemia Chronic conditions: Hypertension, history of CVA, PTSD/depression Patient is status post coronary antral gram with balloon angioplasty of the LAD. Continue aspirin, Lipitor, Plavix, metoprolol. Echocardiogram shows EF 45-50%. Appreciate cardiology recommendations. Telemetry monitoring. Agree with discontinuing hydrochlorothiazide and decreasing dose of lisinopril. Patient is encouraged hydration by mouth. Repeat BMP tomorrow morning. [id number] glucose 342 persistently elevated. Hemoglobin A1c 9.29 September 2022. Continue Levemir to 20 units daily. Continue NovoLog 5 units 3 times a day with meals. Medium dose sliding scale. Patient is asymptomatic with regard to COVID-19 diagnosis. No further treatment. Home medications reviewed and restarted. Objective - Vital Signs Vital signs: Vital Signs Temp 98.0 F 10/12/22 11:21 Pulse 63 10/12/22 11:21 Resp 18 10/12/22 11:21 BP 110/65 10/12/22 11:21 Pulse Ox 100 10/12/22 11:21 FiO2 Intake & Output 10/11/22 10/12/22 10/12/22 18:59 06:59 18:59 Intake Total 850 100 218 Output Total 100 300 0 Balance 750 -200 218 Weight 80 kg 77.3 kg Intake: Intake, IV Titration 150 100 100 Amount Magnesium Sulfate-D5w Pmx 100 100 1 gm In Dextrose/Water 1 100ml.bag @ 100 mls/hr IVPB Q1H [facility] Rx#: [id number] Sodium Chloride 0.9% 1, 150 000 ml In Empty Bag 1 bag @ 75 mls/hr IV .[id number] [facility] Rx#:[id number] Oral 700 118 Output: Urine 100 300 0 Other: Voiding Method Toilet Toilet Toilet Urinal Urinal Urinal # Voids 1 # Bowel Movements 1 - Labs CBC & Chem 7: 10/12/22 05:12 10/12/22 05:12 Labs: Abnormal Lab Results - Last 24 Hours (Table) 10/11/22 10/12/22 10/12/22 Range/Units 19:47 05:12 05:12 RBC 3.49 L (4.30-5.90) m/uL Hgb 9.6 L (13.0-17.5) gm/dL Hct 29.3 L (39.0-53.0) % Sodium 130 L (137-145) mmol/L Creatinine 1.56 H (0.66-1.25) mg/dL Glucose 110 H (74-99) mg/dL POC Glucose (mg/dL) 175 H (70-110) mg/dL Calcium 7.9 L (8.4-10.2) mg/dL 10/12/22 10/12/22 Range/Units 06:03 11:32 RBC (4.30-5.90) m/uL Hgb (13.0-17.5) gm/dL Hct (39.0-53.0) % Sodium (137-145) mmol/L Creatinine (0.66-1.25) mg/dL Glucose (74-99) mg/dL POC Glucose (mg/dL) 123 H 257 H (70-110) mg/dL Calcium (8.4-10.2) mg/dL
[2022-10-12 16:38] LABS: Glucose,Whole Blood 141 mg/dL (70-110)
[2022-10-12] MEDS: TAMSULOSIN 0.4 MG CAP.ER.24H PO SCH (17:10)
[2022-10-12 20:16] LABS: Glucose,Whole Blood 136 mg/dL (70-110)
[2022-10-12] MEDS: ATORVASTATIN 80 MG TAB PO SCH (20:55)
[2022-10-13 06:20] LABS: Glucose,Whole Blood 151 mg/dL (70-110)
[2022-10-13] MEDS: INSULIN ASPART (NovoLOG) 100 UNIT/ML VIAL SQ SCH ×7 (06:33→20:20)
[2022-10-13] MEDS: INSULIN DETEMIR (LEVEMIR) 100 UNIT/ML SYR SQ SCH (06:34)
[2022-10-13 08:28] LABS: HCT 30.1 % (39.0-53.0); HGB 9.9 gm/dL (13.0-17.5); MCH 28.1 pg (25.0-35.0); MCHC 32.9 g/dL (31.0-37.0); MCV 85.5 fL (80.0-100.0); Mean Platelet Volume 8.2; Platelet Count 249 k/uL (150-450); RBC 3.52 m/uL (4.30-5.90); RDW 13.4 % (11.5-15.5); WBC 7.5 k/uL (3.8-10.6)
[2022-10-13] MEDS: ARTIFICIAL TEARS-HYPROMELLOSE DROPS 15 ML BTL BOTH EYES SCH ×4 (08:43→20:21)
[2022-10-13] MEDS: METOPROLOL SUCCINATE (ER) 25 MG TAB.ER.24H PO SCH (08:45)
[2022-10-13] MEDS: lisinopriL 5 MG TAB PO SCH (08:45)
[2022-10-13] MEDS: FINASTERIDE 5 MG TAB PO SCH (08:46)
[2022-10-13] MEDS: MAGNESIUM OXIDE 400 MG TAB PO SCH (08:46)
[2022-10-13] MEDS: DULoxetine HCL 30 MG CAPSULE.DR PO SCH (08:46)
[2022-10-13] MEDS: ASPIRIN 81 MG PO SCH (08:46)
[2022-10-13] MEDS: CLOPIDOGREL 75 MG TAB PO SCH (08:46)
[2022-10-13] MEDS: PANTOPRAZOLE 40 MG TABLET PO SCH (08:46)
[2022-10-13 08:49] LABS: Calcium 7.9 mg/dL (8.4-10.2); Potassium 5.3 mmol/L (3.5-5.1)
[2022-10-13] MEDS ORDERED: SODIUM CHLORIDE 0.9% 500 ML 500 ML IV ONE (09:21)
[2022-10-13] MEDS ORDERED: SODIUM CHLORIDE 0.9% 1,000 ML IV SCH (09:30)
--- NOTE | 2022-10-13 10:25 | US ---
EXAMINATION TYPE: US renals and bladder DATE OF EXAM: 10/13/2022 COMPARISON: Renal ultrasound one week ago. CLINICAL HISTORY: ZOEY. Abnormal labs per order. EXAM MEASUREMENTS: Right Kidney: 11.2 x 5.1 x 5.4 cm Left Kidney: 10.7 x 5.0 x 5.8 cm Right Kidney: No hydronephrosis or masses seen Left Kidney: No hydronephrosis or masses seen Bladder: Mildly distended. Wall appears thickened, more on the right = 7.9 mm. Prominent prostate s een. Bilateral Jets seen There is no evidence for hydronephrosis at this point in time. No nephrolithiasis is seen. No tracy s are identified. The urinary bladder shows persistent wall thickening.. Bilateral ureteral jets ar e seen. IMPRESSION: No hydronephrosis seen bilaterally. Persistent abnormal wall thickening to bladder. Suspe ct product of outlet obstruction related to BPH. Correlate clinically.
--- NOTE | 2022-10-13 10:30 | P.NPCON ---
History of Present Illness - Reason for Consult acute renal failure - History of Present Illness Reason for consultation: Acute kidney injury History of present illness: Patient is a 82-year-old male seen in renal consultation for acute kidney injury. Patient baseline creatinine is near 1 and was as low as 1.03 this admission on 10/11/2022. Patient presented to the hospital with chest pain. He underwent cardiac catheterization with angioplasty of the LAD on 10/10/2022. Patient renal function is progressively worsening with creatinine up to 2.4 today. Oral intake has been fair. No vomiting or diarrhea. Denies any chest pain or shortness of breath at this time. He denies use of nonsteroidals. States he was diagnosed with diabetes at the age of 59. Ultrasound done earlier this month showed no evidence of hydronephrosis. Bladder scan has been done multiple times this admission and has been negative per nurse. He denies family history of renal disease. Denies regular use of nonsteroidals. Ejection fraction noted to be 45-50%. Denies hematuria. Blood pressure was low this morning. Patient received 500 mL bolus of normal saline and is now maintained on normal saline at 75 mL an hour. No edema. He's on room air. Vital signs are stable. Blood pressure on the lower side this morning. General: Awake. No acute distress. HEENT: Head exam is unremarkable. LUNGS: Breath sounds decreased. HEART: Rate and Rhythm are regular. ABDOMEN: Soft, no distention. EXTREMITITES: No edema. Past Medical History Past Medical History: CVA/TIA, Diabetes Mellitus, Hypertension, Myocardial Infarction ([place]) Additional Past Medical History / Comment(s): Stroke in December of 2021 Last Myocardial Infarction Date:: 10/03/22 History of Any Multi-Drug Resistant Organisms: None Reported Past Surgical History: Orthopedic Surgery Additional Past Surgical History / Comment(s): Urethral surgery-unsure of date Past Anesthesia/Blood Transfusion Reactions: No Reported Reaction Past Psychological History: No Psychological Hx Reported, Depression, PTSD Smoking Status: Former smoker Past Alcohol Use History: None Reported Past Drug Use History: None Reported - Past Family History Father Family Medical History: Hypertension Medications and Allergies Home Medications Medication Instructions Recorded Confirmed Type Aspirin [[place] Aspirin EC] 81 mg PO DAILY 10/03/22 10/10/22 History Atorvastatin Calcium [Lipitor] 80 mg PO HS 10/03/22 10/10/22 History Carboxymethylcellulose Sodium 1 drop BOTH EYES QID 10/03/22 10/10/22 History [Thera Tears] DULoxetine HCL [Cymbalta] 30 mg PO DAILY 10/03/22 10/10/22 History Erythromycin Ophth Oint (1 gm) 1 applic TOPICAL HS 10/03/22 10/10/22 History [Ilotycin Ophth Oint (1 gm)] Finasteride [Proscar] 5 mg PO DAILY 10/03/22 10/10/22 History Glimepiride [Amaryl] 1 mg PO DAILY 10/03/22 10/10/22 History Insulin Glargine,Hum.rec.anlog 15 units SQ DAILY 10/03/22 10/10/22 History [Insulin Glargine Solostar] Magnesium Oxide 400 mg PO DAILY 10/03/22 10/10/22 History Omeprazole [PriLOSEC] 20 mg PO DAILY 10/03/22 10/10/22 History Sennosides/Docusate Sodium [Senna 1 tab PO DAILY PRN 10/03/22 10/10/22 History Plus 8.6-50 mg Tablet] Tamsulosin HCl [Flomax] 0.8 mg PO W/SUPPER 10/03/22 10/10/22 History glipiZIDE [Glucotrol] 10 mg PO DAILY 10/03/22 10/10/22 History Amoxic-Pot Clav 875-125Mg 1 tab PO Q12HR 5 Days #10 tab 10/07/22 10/10/22 Rx [Augmentin 875-125] Clopidogrel [Plavix] 75 mg PO DAILY #90 tab 10/07/22 10/10/22 Rx Metoprolol Succinate (ER) [Toprol 50 mg PO BID #60 tab 10/07/22 10/10/22 Rx XL] Nitroglycerin Sl Tabs [Nitrostat] 0.4 mg SUBLINGUAL Q5M PRN #30 tab 10/07/22 10/10/22 Rx lisinopriL [Zestril] 20 mg PO DAILY #30 tab 10/07/22 10/10/22 Rx Allergies Allergy/AdvReac Type Severity Reaction Status Date / Time No Known Allergies Allergy Verified 10/10/22 21:17 Physical Exam Vitals: Vital Signs Temp Pulse Pulse Resp BP Pulse Ox 10/13/22 08:00 98.1 F 65 18 87/51 99 10/13/22 04:00 98.2 F 62 16 103/64 99 10/13/22 03:00 98.2 F 62 16 103/64 99 10/13/22 02:00 60 18 10/13/22 00:00 98.4 F 60 18 93/59 99 10/12/22 20:00 98.4 F 65 18 101/63 99 10/12/22 19:57 98 10/12/22 16:00 69 16 110/69 100 10/12/22 14:00 63 10/12/22 11:21 98.0 F 63 18 110/65 100 Intake and Output 10/12/22 10/13/22 10/13/22 22:59 06:59 14:59 Intake Total 358 358 Balance 358 358 Intake: Oral 358 358 Other: Voiding Method Toilet Toilet Urinal Urinal # Voids 1 1 Results - Lab Results Most recent lab results Calcium 7.9 mg/dL (8.4-10.2) L 10/13/22 07:44 Magnesium 2.1 mg/dL (1.6-2.3) 10/13/22 07:44 10/13/22 07:44 10/13/22 07:44 Assessment and Plan Plan: Assessment: 1. Acute kidney injury secondary to ATN secondary to contrast-induced acute k idney injury and hypotension, further worsened with the use of RIC inhibitor. No evidence of urinary retention. Renal ultrasound done earlier this month showed no evidence of hydronephrosis. Creatinine is low as 1.03 this admission and is 2.4 today. 2. Hyponatremia secondary to acute kidney injury. 3. Coronary artery disease status post cardiac catheterization with angioplasty of the LAD on 10/10/2022. 4. Mild hyperkalemia secondary to acute kidney injury and lisinopril. 5. Diabetes mellitus. Plan: Maintain IV fluids. 1500 mL fluid restriction. Follow-up urine sodium and urine osmolality. Repeat labs this afternoon. Agree with holding lisinopril and diuretics. Continue to monitor renal function and urine output. Check UA. Thank you for the consultation. I will continue to follow the patient with you during his hospital stay.
--- NOTE | 2022-10-13 10:36 | P.PN ---
Subjective Progress Note Date: 10/13/22 Patient is an 82 year old male with DM, prior CVA, PTSD/depression, hypetension, and CAD. He was admitted to the hospital from 10/03/22-10/07/22 for STEMI requiring PCI to proximal LAD with LUCY. He presented to the ED on 10/10/22 for chest pain. He was non compliant with dual antiplatelets. 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 Patient was started on heparin drip and nitro infusion and admitted for further management of symptoms. He emergently underwent coronary angiogram with balloon angioplasty of the left anterior descending for late in stent thrombosis. He underwent echocardiogram which showed ejection fraction 45-50%. He developed some mild hyponatremia and acute kidney injury and was taken off of hydrochlorothiazide (received 1 dose 10/11/22). His renal continued to worsen and he was having episodes of hypotension. Nephrology was consulted. Patient started on IV fluids. Patient seen and examined at bedside. He complains of being tired and having a sore throat. No abdominal pain. No chest pain, no shortness of breath. No difficulty starting or stopping stream. He reports he is urinating normally. General: nontoxic, no distress, appears at stated age Derm: warm, dry Head: atraumatic, normocephalic, symmetric Eyes: EOMI, no lid lag, anicteric sclera Mouth: no lip lesion, mucus membranes moist Cardiovascular: S1S2 reg, no murmur, positive posterior tibial pulse bilateral, Lungs: Decreased bs bilateral, no rhonchi, no rales , no accessory muscle use Abdominal: soft, nontender to palpation, no guarding, no appreciable organomegaly Ext: no gross muscle atrophy, no edema, no contractures Neuro: CN II-XI grossly intact, no focal neuro deficits Psych: Alert, oriented, appropriate affect Assessment/Plan: STEMI due to Late in stent thrombosis. Ischemic cardiomyopathy EF 45-50% - ASA, lipitor, Plavix, Metoprolol Hyponatremia Acute kidney injury-- likely hypotension and contrast. Hyperkalemia Hypotnesion - consult nephrology, case discussed with Dr. Meeks - IVF - repeat labs at 1500 and in AM - seizure precuations - Check urine Na, osmo, and serum osmol - hold lisinopril - Check pst void- ordered, and negative per nursing - Renal US to r/o hydro Diabetes mellitus with hyperglycemia - Highest BS in 24 hours 257 - A1c 9.29 September 2022. - Levemir to 20 units daily. - NovoLog 5 units 3 times a day with meals. - SSI Normocytic anemia - outpatient work up Recent COVID-19 Resolved: Hypomagnesemia Chronic conditions: Hypertension, history of CVA, PTSD/depression Active Medications Generic Name Dose Route Start Last Admin Trade Name Freq PRN Reason Stop Dose Admin Acetaminophen 650 mg 10/11/22 13:26 Acetaminophen Tab 325 Mg Tab PO Q4HR PRN Fever and/ or Pain Al Hydroxide/Mg Hydroxide 30 ml 10/11/22 00:00 Mag Hydrox/Al Hydrox/Simeth 30 Ml Cup PO Q4HR PRN Heartburn Artificial Tears 1 drops 10/11/22 09:00 10/13/22 08:43 Artificial Tears-Hypromellose Drops 15 Ml Btl BOTH EYES Not Given QID YASEMIN Aspirin 81 mg 10/11/22 09:00 10/13/22 08:46 Aspirin 81 Mg PO 81 mg DAILY YASEMIN Administration Atorvastatin Calcium 80 mg 10/11/22 21:00 10/12/22 20:55 Atorvastatin 80 Mg Tab PO 80 mg HS YASEMIN Administration Atropine Sulfate 0.5 mg 10/10/22 22:56 Atropine Sulfate 0.1 Mg/Ml 10ml Syringe IV ONCE PRN Symptomatic Bradycardia Benzonatate 200 mg 10/11/22 13:26 Benzonatate 100 Mg Cap PO TID PRN Cough Clopidogrel Bisulfate 75 mg 10/11/22 09:00 10/13/22 08:46 Clopidogrel 75 Mg Tab PO 75 mg DAILY YASEMIN Administration Duloxetine HCl 30 mg 10/11/22 09:00 10/13/22 08:46 Duloxetine Hcl 30 Mg Capsule.Dr PO 30 mg DAILY YASEMIN Administration Finasteride 5 mg 10/11/22 09:00 10/13/22 08:46 Finasteride 5 Mg Tab PO 5 mg DAILY YASEMIN Administration Sodium Chloride 1,000 mls @ 75 mls/hr 10/13/22 09:30 Saline 0.9% IV .[id number] YASEMIN Insulin Aspart 0 unit 10/11/22 07:30 10/13/22 06:33 Insulin Aspart (Novolog) 100 Unit/Ml Vial SQ 2 unit ACHS YASEMIN Administration Protocol Insulin Aspart 5 unit 10/11/22 17:30 10/13/22 06:33 Insulin Aspart (Novolog) 100 Unit/Ml Vial SQ 5 unit AC-TID [facility] Administration Insulin Detemir 20 unit 10/12/22 07:00 10/13/22 06:34 Insulin Detemir (Levemir) 100 Unit/Ml Syr SQ 20 unit DAILY@0700 [facility] Administration Magnesium Oxide 400 mg 10/11/22 09:00 10/13/22 08:46 Magnesium Oxide 400 Mg Tab PO 400 mg DAILY YASEMIN Administration Metoprolol Succinate 50 mg 10/13/22 21:00 Metoprolol Succinate (Er) 50 Mg Tab.Er.24h PO BID [facility] Miscellaneous Information 1 each 10/12/22 05:41 Magnesium Replacement Protocol 1 Each Misc MISCELLANE DAILY PRN Per Protocol Protocol Naloxone HCl 0.2 mg 10/10/22 21:32 Naloxone 0.4 Mg/Ml 1 Ml Vial IV Q2M PRN Opioid Reversal Nitroglycerin 0.4 mg 10/10/22 22:56 Nitroglycerin Sl Tabs 0.4 Mg Tab SUBLINGUAL Q5M PRN Chest Pain Pantoprazole Sodium 40 mg 10/11/22 09:00 10/13/22 08:46 Pantoprazole 40 Mg Tablet PO 40 mg DAILY [facility] Administration Senna/Docusate Sodium 1 each 10/11/22 09:00 Sennosides-Docusate Sodium 1 Each Tab PO DAILY PRN Constipation Tamsulosin HCl 0.8 mg 10/11/22 17:30 10/12/22 17:10 Tamsulosin 0.4 Mg Cap.Er.24h PO 0.8 mg W/SUPPER [facility] Administration Zolpidem Tartrate 5 mg 10/10/22 22:56 Zolpidem 5 Mg Tab PO HS PRN Insomnia Objective - Vital Signs Vital signs: Vital Signs Temp 98.2 F 10/13/22 04:00 Pulse 62 10/13/22 04:00 Resp 16 10/13/22 04:00 BP 103/64 10/13/22 04:00 Pulse Ox 99 10/13/22 04:00 FiO2 Intake & Output 10/12/22 10/13/22 10/13/22 18:59 06:59 18:59 Intake Total 576 Output Total 0 Balance 576 Intake: Intake, IV Titration 100 Amount Magnesium Sulfate-D5w Pmx 100 1 gm In Dextrose/Water 1 100ml.bag @ 100 mls/hr IVPB Q1H [facility]ASEMIN Rx#: [id number] Oral 476 Output: Urine 0 Other: Voiding Method Toilet Toilet Urinal Urinal # Voids 1 1 - Labs CBC & Chem 7: 10/13/22 07:44 10/13/22 07:44 Labs: Abnormal Lab Results - Last 24 Hours (Table) 10/12/22 10/12/22 10/12/22 Range/Units 11:32 16:36 20:12 POC Glucose (mg/dL) 257 H 141 H 136 H (70-110) mg/dL 10/13/22 Range/Units 06:18 POC Glucose (mg/dL) 151 H (70-110) mg/dL
--- NOTE | 2022-10-13 11:12 | P.PN ---
Subjective Progress Note Date: 10/13/22 HISTORY OF PRESENT ILLNESS: This is an 82-year-old male who was recently admitted to the hospital and underwent stenting of the LAD. The patient was discharged home and apparently was not taking his medications including his dual anti-platelet therapy. The patient presented back to the hospital with chest discomfort. The patient was found to have acute STEMI. He underwent cardiac catheterization with angioplasty of the LAD on 10/10/2022. Patient examined this morning at the bedside. The patient denies chest pain or pressure. He denies shortness of breath. Echocardiogram completed revealing ejection fraction 45-50%. The patient was found to have worsening kidney function this morning with a creatinine of 2.4. The patient has been hypotensive with blood pressure re adings in the 80s. PHYSICAL EXAM: VITAL SIGNS: Reviewed. GENERAL: Well-developed in no acute distress. NECK: Supple. No JVD or thyromegaly LUNGS: Respirations even and unlabored. Lungs essentially clear to auscultation bilaterally. HEART: Regular rate and rhythm. S1 and S2 heard. EXTREMITIES: Normal range of motion. No clubbing or cyanosis. Peripheral pulses intact. No lower extremity edema. Right radial cath site with pulse present. ASSESSMENT: STEMI, status post angioplasty of the LAD Recent hospitalization for NSTEMI with stenting of the LAD Mild ischemic cardiomyopathy, ejection fraction 45% Medication noncompliance Acute kidney injury Hypotension History of hypertension Hyperlipidemia PLAN: Decrease metoprolol to 50 mg twice a day Lisinopril initially decreased this morning per cardiology. However this was d iscontinued per internal medicine Continue dual antiplatelet therapy with aspirin and Plavix Continue to monitor blood pressure Continue to monitor kidney function. Nephrology following. Further recommendations pending patient's course Nurse practitioner note has been reviewed by physician. Signing provider agrees with the documented findings, assessment, and plan of care. Objective - Vital Signs Vital signs: Vital Signs Temp 98.1 F 10/13/22 08:00 Pulse 62 10/13/22 08:00 Resp 18 10/13/22 08:00 BP 87/51 10/13/22 08:00 Pulse Ox 99 10/13/22 08:00 FiO2 Intake & Output 10/12/22 10/13/22 10/13/22 18:59 06:59 18:59 Intake Total 576 358 Output Total 0 Balance 576 358 Intake: Intake, IV Titration 100 Amount Magnesium Sulfate-D5w Pmx 100 1 gm In Dextrose/Water 1 100ml.bag @ 100 mls/hr IVPB Q1H [facility] Rx#: [id number] Oral 476 358 Output: Urine 0 Other: Voiding Method Toilet Toilet Urinal Urinal # Voids 1 1 - Labs CBC & Chem 7: 10/13/22 07:44 10/13/22 07:44 Labs: Abnormal Lab Results - Last 24 Hours (Table) 10/12/22 10/12/22 10/12/22 Range/Units 11:32 16:36 20:12 RBC (4.30-5.90) m/uL Hgb (13.0-17.5) gm/dL Hct (39.0-53.0) % Sodium (137-145) mmol/L Potassium (3.5-5.1) mmol/L BUN (9-20) mg/dL Creatinine (0.66-1.25) mg/dL Glucose (74-99) mg/dL POC Glucose (mg/dL) 257 H 141 H 136 H (70-110) mg/dL Calcium (8.4-10.2) mg/dL 10/13/22 10/13/22 10/13/22 Range/Units 06:18 07:44 07:44 RBC 3.52 L (4.30-5.90) m/uL Hgb 9.9 L (13.0-17.5) gm/dL Hct 30.1 L (39.0-53.0) % Sodium 126 L (137-145) mmol/L Potassium 5.3 H (3.5-5.1) mmol/L BUN 33 H (9-20) mg/dL Creatinine 2.40 H (0.66-1.25) mg/dL Glucose 139 H (74-99) mg/dL POC Glucose (mg/dL) 151 H (70-110) mg/dL Calcium 7.9 L (8.4-10.2) mg/dL
[2022-10-13 11:49] LABS: Glucose,Whole Blood 185 mg/dL (70-110)
[2022-10-13 12:11] LABS: Appearance,Urine Clear (Clear); Bilirubin,Urine Negative (Negative); Blood,Urine Negative (Negative); Color,Urine Yellow; Glucose,Urine (UA) Negative (Negative); Hyaline Casts,Urine 32 /lpf (0-2); Ketones,Urine Negative (Negative); Leukocyte Esterase,Urine Moderate (Negative); Mucus,Urine Rare /hpf; Nitrite,Urine Negative (Negative); Protein,Urine Trace (Negative); RBC,Urine 2 /hpf (0-5); Specific Gravity,Urine 1.011 (1.001-1.035); Squamous Epithelial Cell,Urine <1 /hpf (0-4); Urobilinogen,Urine <2.0 mg/dL (<2.0); WBC,Urine 14 /hpf (0-5)
[2022-10-13 15:53] LABS: Calcium 7.5 mg/dL (8.4-10.2); Potassium 5.1 mmol/L (3.5-5.1)
[2022-10-13 16:45] LABS: Glucose,Whole Blood 142 mg/dL (70-110)
[2022-10-13] MEDS: TAMSULOSIN 0.4 MG CAP.ER.24H PO SCH (17:17)
[2022-10-13 19:59] LABS: Glucose,Whole Blood 170 mg/dL (70-110)
[2022-10-13] MEDS: METOPROLOL SUCCINATE (ER) 50 MG TAB.ER.24H PO SCH (20:20)
[2022-10-13] MEDS: ATORVASTATIN 80 MG TAB PO SCH (20:20)
[2022-10-13 21:44] LABS: Calcium 7.8 mg/dL (8.4-10.2)
[2022-10-13 21:59] LABS: Potassium 5.1 mmol/L (3.5-5.1)
[2022-10-14 06:06] LABS: Glucose,Whole Blood 105 mg/dL (70-110)
[2022-10-14] MEDS: INSULIN ASPART (NovoLOG) 100 UNIT/ML VIAL SQ SCH ×7 (06:12→20:46)
[2022-10-14] MEDS: INSULIN DETEMIR (LEVEMIR) 100 UNIT/ML SYR SQ SCH (06:57)
[2022-10-14 07:56] LABS: Calcium 7.7 mg/dL (8.4-10.2); Potassium 5.3 mmol/L (3.5-5.1)
[2022-10-14] MEDS: MAGNESIUM OXIDE 400 MG TAB PO SCH (08:06)
[2022-10-14] MEDS: CLOPIDOGREL 75 MG TAB PO SCH (08:06)
[2022-10-14] MEDS: DULoxetine HCL 30 MG CAPSULE.DR PO SCH (08:06)
[2022-10-14] MEDS: METOPROLOL SUCCINATE (ER) 50 MG TAB.ER.24H PO SCH ×2 (08:06→21:18)
[2022-10-14] MEDS: PANTOPRAZOLE 40 MG TABLET PO SCH (08:06)
[2022-10-14] MEDS: ASPIRIN 81 MG PO SCH (08:06)
[2022-10-14] MEDS: FINASTERIDE 5 MG TAB PO SCH (08:06)
[2022-10-14] MEDS: ARTIFICIAL TEARS-HYPROMELLOSE DROPS 15 ML BTL BOTH EYES SCH ×4 (08:10→21:18)
[2022-10-14] MEDS: SODIUM CHLORIDE 0.9% 1,000 ML IV SCH ×2 (10:01→21:18)
--- NOTE | 2022-10-14 10:23 | P.PN ---
Subjective Patient is seen in follow for acute kidney injury. Renal function better. Sodium level also improved. Has been voiding. No edema. Denies chest pain or shortness of breath. On room air. Vital signs are stable. General: No acute distress. HEENT: Head exam is unremarkable. LUNGS: Breath sounds decreased. HEART: Rate and Rhythm are regular. ABDOMEN: Soft, no distention. EXTREMITITES: No edema. Objective - Vital Signs Vital signs: Vital Signs Temp 97.4 F L 10/14/22 08:03 Pulse 63 10/14/22 08:03 Resp 16 10/14/22 08:03 BP 113/55 10/14/22 08:03 Pulse Ox 99 10/14/22 08:03 FiO2 Intake & Output 10/13/22 10/14/22 10/14/22 18:59 06:59 18:59 Intake Total 538 Output Total 700 Balance 538 -700 Weight 78.4 kg Intake: Oral 538 Output: Urine 700 Other: Voiding Method Toilet Urinal # Voids 1 # Bowel Movements 1 1 - Labs CBC & Chem 7: 10/13/22 07:44 10/14/22 06:33 Labs: Abnormal Lab Results - Last 24 Hours (Table) 10/13/22 10/13/22 10/13/22 Range/Units 07:44 11:30 11:30 Sodium (137-145) mmol/L Potassium (3.5-5.1) mmol/L Carbon Dioxide (22-30) mmol/L BUN (9-20) mg/dL Creatinine (0.66-1.25) mg/dL Glucose (74-99) mg/dL POC Glucose (mg/dL) (70-110) mg/dL Osmolality 275 L (280-301) mosm/kg Calcium (8.4-10.2) mg/dL Urine Protein Trace H (Negative) Ur Leukocyte Esterase Moderate H (Negative) Urine WBC 14 H (0-5) /hpf Hyaline Casts 32 H (0-2) /lpf Urine Mucus Rare H (None) /hpf Ur Random Sodium 21 L (40-220) mmol/L 10/13/22 10/13/22 10/13/22 Range/Units 11:48 15:27 16:44 Sodium 125 L (137-145) mmol/L Potassium (3.5-5.1) mmol/L Carbon Dioxide (22-30) mmol/L BUN 35 H (9-20) mg/dL Creatinine 2.28 H (0.66-1.25) mg/dL Glucose 140 H (74-99) mg/dL POC Glucose (mg/dL) 185 H 142 H (70-110) mg/dL Osmolality (280-301) mosm/kg Calcium 7.5 L (8.4-10.2) mg/dL Urine Protein (Negative) Ur Leukocyte Esterase (Negative) Urine WBC (0-5) /hpf Hyaline Casts (0-2) /lpf Urine Mucus (None) /hpf Ur Random Sodium (40-220) mmol/L 10/13/22 10/13/22 10/14/22 Range/Units 19:58 21:28 06:33 Sodium 127 L 130 L (137-145) mmol/L Potassium 5.3 H (3.5-5.1) mmol/L Carbon Dioxide 21 L (22-30) mmol/L BUN 38 H 35 H (9-20) mg/dL Creatinine 2.11 H 1.89 H (0.66-1.25) mg/dL Glucose 110 H (74-99) mg/dL POC Glucose (mg/dL) 170 H (70-110) mg/dL Osmolality (280-301) mosm/kg Calcium 7.8 L 7.7 L (8.4-10.2) mg/dL Urine Protein (Negative) Ur Leukocyte Esterase (Negative) Urine WBC (0-5) /hpf Hyaline Casts (0-2) /lpf Urine Mucus (None) /hpf Ur Random Sodium (40-220) mmol/L Assessment and Plan Plan: Assessment: 1. Acute kidney injury secondary to ATN secondary to contrast-induced acute kidney injury and hypotension, further worsened with the use of RIC inhibitor. No evidence of urinary retention. Renal ultrasound done earlier this month showed no evidence of hydronephrosis. Trace protein on UA. Creatinine is low as 1.03 this admission and peaked at 2.4 this admission - 1.89 today. 2. Hyponatremia secondary to acute kidney injury. Improved. Urine sodium 21 and urine osmolality 258. 3. Coronary artery disease status post cardiac catheterization with angioplasty of the LAD on 10/10/2022. 4. Mild hyperkalemia secondary to acute kidney injury and lisinopril. Stable. 5. Diabetes mellitus. Plan: Maintain IV fluids. 1500 mL fluid restriction. Encouraged oral intake. Continue to hold lisinopril and diuretics. Continue to monitor renal function and urine output. Case discussed with primary team.
[2022-10-14 11:29] LABS: Glucose,Whole Blood 302 mg/dL (70-110)
--- NOTE | 2022-10-14 11:29 | P.PN ---
Subjective Progress Note Date: 10/14/22 HISTORY OF PRESENT ILLNESS: This is an 82-year-old male who was recently admitted to the hospital and underwent stenting of the LAD. The patient was discharged home and apparently was not taking his medications including his dual anti-platelet therapy. The patient presented back to the hospital with chest discomfort. The patient was found to have acute STEMI. He underwent cardiac catheterization with angioplasty of the LAD on 10/10/2022. Patient examined this morning at the bedside. The patient denies chest pain or pressure. He denies shortness of breath. Echocardiogram completed revealing ejection fraction 45-50%. The patient was found to have worsening kidney function this morning with a creatinine of 2.4. The patient has been hypotensive with blood pressure re adings in the 80s. 10/14/2022 Patient examined this morning at the bedside. Patient denies chest pain or pressure. He denies shortness of breath. Patient received IV fluids overnight and his creatinine has improved to 1.89 today. Blood pressure 113/55. PHYSICAL EXAM: VITAL SIGNS: Reviewed. GENERAL: Well-developed in no acute distress. NECK: Supple. No JVD or thyromegaly LUNGS: Respirations even and unlabored. Lungs essentially clear to auscultation bilaterally. HEART: Regular rate and rhythm. S1 and S2 heard. EXTREMITIES: Normal range of motion. No clubbing or cyanosis. Peripheral pulses intact. No lower extremity edema. Right radial cath site with pulse present. ASSESSMENT: STEMI, status post angioplasty of the LAD Recent hospitalization for NSTEMI with stenting of the LAD Mild ischemic cardiomyopathy, ejection fraction 45% Medication noncompliance Acute kidney injury Hypotension History of hypertension Hyperlipidemia PLAN: Continue current cardiac medications Continue dual antiplatelet therapy with aspirin and Plavix Lisinopril on hold secondary to kidney function Continue to monitor blood pressure Continue to monitor kidney function. Nephrology following. Further recommendations pending patient's course Nurse practitioner note has been reviewed by physician. Signing provider agrees with the documented findings, assessment, and plan of care. Objective - Vital Signs Vital signs: Vital Signs Temp 97.4 F L 10/14/22 08:03 Pulse 63 10/14/22 08:03 Resp 16 10/14/22 08:03 BP 113/55 10/14/22 08:03 Pulse Ox 99 10/14/22 08:03 FiO2 Intake & Output 10/13/22 10/14/22 10/14/22 18:59 06:59 18:59 Intake Total 538 Output Total 700 Balance 538 -700 Weight 78.4 kg Intake: Oral 538 Output: Urine 700 Other: Voiding Method Toilet Urinal # Voids 1 # Bowel Movements 1 1 - Labs CBC & Chem 7: 10/13/22 07:44 10/14/22 06:33 Labs: Abnormal Lab Results - Last 24 Hours (Table) 10/13/22 10/13/22 10/13/22 Range/Units 07:44 11:30 11:30 Sodium (137-145) mmol/L Potassium (3.5-5.1) mmol/L Carbon Dioxide (22-30) mmol/L BUN (9-20) mg/dL Creatinine (0.66-1.25) mg/dL Glucose (74-99) mg/dL POC Glucose (mg/dL) (70-110) mg/dL Osmolality 275 L (280-301) mosm/kg Calcium (8.4-10.2) mg/dL Urine Protein Trace H (Negative) Ur Leukocyte Esterase Moderate H (Negative) Urine WBC 14 H (0-5) /hpf Hyaline Casts 32 H (0-2) /lpf Urine Mucus Rare H (None) /hpf Ur Random Sodium 21 L (40-220) mmol/L 10/13/22 10/13/22 10/13/22 Range/Units 11:48 15:27 16:44 Sodium 125 L (137-145) mmol/L Potassium (3.5-5.1) mmol/L Carbon Dioxide (22-30) mmol/L BUN 35 H (9-20) mg/dL Creatinine 2.28 H (0.66-1.25) mg/dL Glucose 140 H (74-99) mg/dL POC Glucose (mg/dL) 185 H 142 H (70-110) mg/dL Osmolality (280-301) mosm/kg Calcium 7.5 L (8.4-10.2) mg/dL Urine Protein (Negative) Ur Leukocyte Esterase (Negative) Urine WBC (0-5) /hpf Hyaline Casts (0-2) /lpf Urine Mucus (None) /hpf Ur Random Sodium (40-220) mmol/L 10/13/22 10/13/22 10/14/22 Range/Units 19:58 21:28 06:33 Sodium 127 L 130 L (137-145) mmol/L Potassium 5.3 H (3.5-5.1) mmol/L Carbon Dioxide 21 L (22-30) mmol/L BUN 38 H 35 H (9-20) mg/dL Creatinine 2.11 H 1.89 H (0.66-1.25) mg/dL Glucose 110 H (74-99) mg/dL POC Glucose (mg/dL) 170 H (70-110) mg/dL Osmolality (280-301) mosm/kg Calcium 7.8 L 7.7 L (8.4-10.2) mg/dL Urine Protein (Negative) Ur Leukocyte Esterase (Negative) Urine WBC (0-5) /hpf Hyaline Casts (0-2) /lpf Urine Mucus (None) /hpf Ur Random Sodium (40-220) mmol/L
[2022-10-14 12:57] LABS: Glucose,Whole Blood 269 mg/dL (70-110)
--- NOTE | 2022-10-14 13:57 | P.PN ---
Subjective Progress Note Date: 10/14/22 (delayed charting seen at 0955) Patient is an 82 year old male with DM, prior CVA, PTSD/depression, hypetension, and CAD. He was admitted to the hospital from 10/03/22-10/07/22 for STEMI requiring PCI to proximal LAD with LUCY. He presented to the ED on 10/10/22 for chest pain. He was non compliant with dual antiplatelets. In the ED his EKG showed ST elevation on the precordial leads, cardiology recommended taking the patient to the laboratory clerk to rule out stent restenosis. Patient was started on heparin drip and nitro infusion and admitted for further management of symptoms. He emergently underwent coronary angiogram with balloon angioplasty of the left anterior descending for late in stent thrombosis. He underwent echocardiogram which showed ejection fraction 45-50%. He developed some mild hyponatremia and acute kidney injury and was taken off of hydrochlorothiazide (received 1 dose 10/11/22). His renal continued to worsen and he was having episodes of hypotension. Nephrology was consulted. Patient started on IV fluids. His renal function improved, sodium improved, but potassium remains slightly elevated. Renal US shows bladder wall thickening. Patient seen and examined at bedside. Sore throat better than yesterday but still present, no chest pain, no shortness of breath, feeling tired. General: nontoxic, no distress, appears at stated age Derm: warm, dry Head: atraumatic, normocephalic, symmetric, Hard of hearing Eyes: EOMI, no lid lag, anicteric sclera Mouth: no lip lesion, mucus membranes moist Cardiovascular: S1S2 reg, no murmur, positive posterior tibial pulse bilateral, Lungs: Decreased bs bilateral, no rhonchi, no rales , no accessory muscle use Abdominal: soft, nontender to palpation, no guarding, no appreciable organomegaly Ext: no gross muscle atrophy, no edema, no contractures Neuro: CN II-XI grossly intact, no focal neuro deficits Psych: Alert, oriented, appropriate affect Assessment/Plan: STEMI due to Late in stent thrombosis. Ischemic cardiomyopathy EF 45-50% - ASA, lipitor, Plavix, Metoprolol Hyponatremia, improving Acute kidney injury-- likely hypotension and contrast. Hyperkalemia Hypotension, improving - Case discussed with Dr. Meeks today, nephro recs appreciated - IVF - repeat BMP in AM - hold lisinopril - Post void negative per nursing - Renal US with chronic bladder wall thickening. Diabetes mellitus with hyperglycemia - Highest BS in 24 hours 302 - A1c 9.29 September 2022. - Conitnue Levemir to 20 units daily. - NovoLog 6 units 3 times a day with meals. - SSI Normocytic anemia - outpatient work up Recent COVID-19 Resolved: Hypomagnesemia Chronic conditions: Hypertension, history of CVA, PTSD/depression - reviewed BMP and BS, will recheck BMP in AM Active Medications Generic Name Dose Route Start Last Admin Trade Name Freq PRN Reason Stop Dose Admin Acetaminophen 650 mg 10/11/22 13:26 Acetaminophen Tab 325 Mg Tab PO Q4HR PRN Fever and/ or Pain Al Hydroxide/Mg Hydroxide 30 ml 10/11/22 00:00 Mag Hydrox/Al Hydrox/Simeth 30 Ml Cup PO Q4HR PRN Heartburn Artificial Tears 1 drops 10/11/22 09:00 10/14/22 12:51 Artificial Tears-Hypromellose Drops 15 Ml Btl BOTH EYES 1 drops QID YASEMIN Administration Aspirin 81 mg 10/11/22 09:00 10/14/22 08:06 Aspirin 81 Mg PO 81 mg DAILY YASEMIN Administration Atorvastatin Calcium 80 mg 10/11/22 21:00 10/13/22 20:20 Atorvastatin 80 Mg Tab PO 80 mg HS YASEMIN Administration Atropine Sulfate 0.5 mg 10/10/22 22:56 Atropine Sulfate 0.1 Mg/Ml 10ml Syringe IV ONCE PRN Symptomatic Bradycardia Benzonatate 200 mg 10/11/22 13:26 Benzonatate 100 Mg Cap PO TID PRN Cough Clopidogrel Bisulfate 75 mg 10/11/22 09:00 10/14/22 08:06 Clopidogrel 75 Mg Tab PO 75 mg DAILY YASEMIN Administration Duloxetine HCl 30 mg 10/11/22 09:00 10/14/22 08:06 Duloxetine Hcl 30 Mg Capsule.Dr PO 30 mg DAILY YASEMIN Administration Finasteride 5 mg 10/11/22 09:00 10/14/22 08:06 Finasteride 5 Mg Tab PO 5 mg DAILY YASEMIN Administration Sodium Chloride 1,000 mls @ 75 mls/hr 10/14/22 08:45 10/14/22 10:01 Saline 0.9% IV Not Given .[id number] [facility] Insulin Aspart 0 unit 10/11/22 07:30 10/14/22 12:51 Insulin Aspart (Novolog) 100 Unit/Ml Vial SQ 9 unit ACHS YASEMIN Administration Protocol Insulin Aspart 6 unit 10/14/22 17:30 Insulin Aspart (Novolog) 100 Unit/Ml Vial SQ AC-TID [facility] Insulin Detemir 20 unit 10/12/22 07:00 10/14/22 06:57 Insulin Detemir (Levemir) 100 Unit/Ml Syr SQ 20 unit DAILY@0700 [facility] Administration Magnesium Oxide 400 mg 10/11/22 09:00 10/14/22 08:06 Magnesium Oxide 400 Mg Tab PO 400 mg DAILY YASEMIN Administration Metoprolol Succinate 50 mg 10/13/22 21:00 10/14/22 08:06 Metoprolol Succinate (Er) 50 Mg Tab.Er.24h PO 50 mg BID YASEMIN Administration Miscellaneous Information 1 each 10/12/22 05:41 Magnesium Replacement Protocol 1 Each Misc MISCELLANE DAILY PRN Per Protocol Protocol Naloxone HCl 0.2 mg 10/10/22 21:32 Naloxone 0.4 Mg/Ml 1 Ml Vial IV Q2M PRN Opioid Reversal Nitroglycerin 0.4 mg 10/10/22 22:56 Nitroglycerin Sl Tabs 0.4 Mg Tab SUBLINGUAL Q5M PRN Chest Pain Pantoprazole Sodium 40 mg 10/11/22 09:00 10/14/22 08:06 Pantoprazole 40 Mg Tablet PO 40 mg DAILY [facility] Administration Senna/Docusate Sodium 1 each 10/11/22 09:00 Sennosides-Docusate Sodium 1 Each Tab PO DAILY PRN Constipation Tamsulosin HCl 0.8 mg 10/11/22 17:30 10/13/22 17:17 Tamsulosin 0.4 Mg Cap.Er.24h PO 0.8 mg W/SUPPER [facility] Administration Zolpidem Tartrate 5 mg 10/10/22 22:56 Zolpidem 5 Mg Tab PO HS PRN Insomnia Objective - Vital Signs Vital signs: Vital Signs Temp 97.4 F L 10/14/22 08:03 Pulse 64 10/14/22 12:00 Resp 16 10/14/22 12:00 BP 117/69 10/14/22 12:00 Pulse Ox 98 10/14/22 12:00 FiO2 Intake & Output 10/13/22 10/14/22 10/14/22 18:59 06:59 18:59 Intake Total 538 Output Total 700 325 Balance 538 -700 -325 Weight 78.4 kg Intake: Oral 538 Output: Urine 700 325 Other: Voiding Method Toilet Urinal # Voids 1 # Bowel Movements 1 1 - Labs CBC & Chem 7: 10/13/22 07:44 10/14/22 06:33 Labs: Abnormal Lab Results - Last 24 Hours (Table) 10/13/22 10/13/22 10/13/22 Range/Units 11:30 15:27 16:44 Sodium 125 L (137-145) mmol/L Potassium (3.5-5.1) mmol/L Carbon Dioxide (22-30) mmol/L BUN 35 H (9-20) mg/dL Creatinine 2.28 H (0.66-1.25) mg/dL Glucose 140 H (74-99) mg/dL POC Glucose (mg/dL) 142 H (70-110) mg/dL Calcium 7.5 L (8.4-10.2) mg/dL Ur Random Sodium 21 L (40-220) mmol/L 10/13/22 10/13/22 10/14/22 Range/Units 19:58 21:28 06:33 Sodium 127 L 130 L (137-145) mmol/L Potassium 5.3 H (3.5-5.1) mmol/L Carbon Dioxide 21 L (22-30) mmol/L BUN 38 H 35 H (9-20) mg/dL Creatinine 2.11 H 1.89 H (0.66-1.25) mg/dL Glucose 110 H (74-99) mg/dL POC Glucose (mg/dL) 170 H (70-110) mg/dL Calcium 7.8 L 7.7 L (8.4-10.2) mg/dL Ur Random Sodium (40-220) mmol/L 10/14/22 10/14/22 Range/Units 11:25 12:56 Sodium (137-145) mmol/L Potassium (3.5-5.1) mmol/L Carbon Dioxide (22-30) mmol/L BUN (9-20) mg/dL Creatinine (0.66-1.25) mg/dL Glucose (74-99) mg/dL POC Glucose (mg/dL) 302 H 269 H (70-110) mg/dL Calcium (8.4-10.2) mg/dL Ur Random Sodium (40-220) mmol/L
[2022-10-14 16:17] LABS: Glucose,Whole Blood 76 mg/dL (70-110)
[2022-10-14] MEDS: TAMSULOSIN 0.4 MG CAP.ER.24H PO SCH (17:17)
[2022-10-14 20:24] LABS: Glucose,Whole Blood 143 mg/dL (70-110)
[2022-10-14] MEDS: ATORVASTATIN 80 MG TAB PO SCH (21:18)
[2022-10-15] MEDS: INSULIN ASPART (NovoLOG) 100 UNIT/ML VIAL SQ SCH ×5 (06:53→20:40)
[2022-10-15 06:54] LABS: Glucose,Whole Blood 118 mg/dL (70-110)
[2022-10-15] MEDS: INSULIN DETEMIR (LEVEMIR) 100 UNIT/ML SYR SQ SCH (06:55)
[2022-10-15] MEDS: ARTIFICIAL TEARS-HYPROMELLOSE DROPS 15 ML BTL BOTH EYES SCH ×4 (08:31→20:40)
[2022-10-15] MEDS: FINASTERIDE 5 MG TAB PO SCH (08:32)
[2022-10-15] MEDS: MAGNESIUM OXIDE 400 MG TAB PO SCH (08:32)
[2022-10-15] MEDS: METOPROLOL SUCCINATE (ER) 50 MG TAB.ER.24H PO SCH ×2 (08:32→20:39)
[2022-10-15] MEDS: CLOPIDOGREL 75 MG TAB PO SCH (08:32)
[2022-10-15] MEDS: ASPIRIN 81 MG PO SCH (08:32)
[2022-10-15] MEDS: DULoxetine HCL 30 MG CAPSULE.DR PO SCH (08:32)
[2022-10-15] MEDS: PANTOPRAZOLE 40 MG TABLET PO SCH (08:32)
[2022-10-15 08:59] LABS: Calcium 8.1 mg/dL (8.4-10.2); Potassium 5.7 mmol/L (3.5-5.1)
[2022-10-15] MEDS ORDERED: SODIUM ZIRCONIUM CYCLOSILICATE 10 GM PACKET PO ONE ×2 (09:15→18:08)
[2022-10-15] MEDS ORDERED: CALCIUM GLUCONATE IN NACL 1 GM in SALINE 1 100ML.BAG IVPB ONE (09:16)
--- NOTE | 2022-10-15 10:08 | XR ---
EXAMINATION TYPE: XR chest 1V portable DATE OF EXAM: 10/15/2022 COMPARISON: 10/10/2022 and 10/03/2022 HISTORY: Shortness of breath TECHNIQUE: Single frontal view of the chest is obtained. FINDINGS: The heart is not enlarged. There is again coarsened interstitial markings, but no focal ai rspace consolidation. Right midlung scarring. Incidental azygos fissure. No pneumothorax. Degenerativ e changes of the spine and shoulders but no acute osseous abnormality. IMPRESSION: Stable chest.
--- NOTE | 2022-10-15 10:51 | P.PN ---
Subjective Progress Note Date: 10/15/22 HISTORY OF PRESENT ILLNESS: This is an 82-year-old male who was recently admitted to the hospital and underwent stenting of the LAD. The patient was discharged home and apparently was not taking his medications including his dual anti-platelet therapy. The patient presented back to the hospital with chest discomfort. The patient was found to have acute STEMI. He underwent cardiac catheterization with angioplasty of the LAD on 10/10/2022. Patient examined this morning at the bedside. The patient denies chest pain or pressure. He denies shortness of breath. Echocardiogram completed revealing ejection fraction 45-50%. The patient was found to have worsening kidney function this morning with a creatinine of 2.4. The patient has been hypotensive with blood pressure re adings in the 80s. 10/14/2022 Patient examined this morning at the bedside. Patient denies chest pain or pressure. He denies shortness of breath. Patient received IV fluids overnight and his creatinine has improved to 1.89 today. Blood pressure 113/55. 10/15/2022 Patient examined this morning at the bedside. Patient denies chest pain or pressure. He reports shortness of breath this morning with exertion which is new from yesterday. He has been receiving IV fluids secondary to acute kidney injury. Creatinine today 1.51. Vital signs are stable. PHYSICAL EXAM: VITAL SIGNS: Reviewed. GENERAL: Well-developed in no acute distress. NECK: Supple. No JVD or thyromegaly LUNGS: Respirations even and unlabored. Lungs with crackles at right base and diminished at left base HEART: Regular rate and rhythm. S1 and S2 heard. EXTREMITIES: Normal range of motion. No clubbing or cyanosis. Peripheral pulses intact. No lower extremity edema. Right radial cath site with pulse present. ASSESSMENT: STEMI, status post angioplasty of the LAD Recent hospitalization for NSTEMI with stenting of the LAD Mild ischemic cardiomyopathy, ejection fraction 45% Medication noncompliance Acute kidney injury Hypotension History of hypertension Hyperlipidemia PLAN: Continue current cardiac medications Continue dual antiplatelet therapy with aspirin and Plavix Lisinopril on hold secondary to kidney function Continue to monitor blood pressure Continue to monitor kidney function. Nephrology following. Chest x-ray and BNP are pending IV fluids discontinued this morning Further recommendations pending patient's course Nurse practitioner note has been reviewed by physician. Signing provider agrees with the documented findings, assessment, and plan of care. Objective - Vital Signs Vital signs: Vital Signs Temp 97.6 F 10/15/22 07:34 Pulse 62 10/15/22 07:34 Resp 16 10/15/22 08:00 BP 124/68 10/15/22 07:34 Pulse Ox 97 10/15/22 08:16 FiO2 Intake & Output 10/14/22 10/15/22 10/15/22 18:59 06:59 18:59 Intake Total 375 118 Output Total 325 1200 Balance 50 -1200 118 Intake: IV 375 Sodium Chloride 0.9% 1, 375 000 ml @ 75 mls/hr IV . [id number] [facility] Rx#:[id number] Oral 118 Output: Urine 325 1200 Other: Voiding Method Toilet Toilet Urinal Urinal # Voids 3 # Bowel Movements 1 - Labs CBC & Chem 7: 10/13/22 07:44 10/15/22 07:54 Labs: Abnormal Lab Results - Last 24 Hours (Table) 10/14/22 10/14/22 10/14/22 Range/Units 11:25 12:56 20:22 Sodium (137-145) mmol/L Potassium (3.5-5.1) mmol/L BUN (9-20) mg/dL Creatinine (0.66-1.25) mg/dL POC Glucose (mg/dL) 302 H 269 H 143 H (70-110) mg/dL Calcium (8.4-10.2) mg/dL 10/15/22 10/15/22 Range/Units 06:52 07:54 Sodium 135 L (137-145) mmol/L Potassium 5.7 H (3.5-5.1) mmol/L BUN 28 H (9-20) mg/dL Creatinine 1.51 H (0.66-1.25) mg/dL POC Glucose (mg/dL) 118 H (70-110) mg/dL Calcium 8.1 L (8.4-10.2) mg/dL
[2022-10-15 12:00] LABS: Glucose,Whole Blood 172 mg/dL (70-110)
[2022-10-15] MEDS ORDERED: FUROSEMIDE 10 MG/ML 2 ML VIAL IV ONE (12:31)
--- NOTE | 2022-10-15 12:33 | P.PN ---
Subjective Patient is seen in follow for acute kidney injury. Renal function better. Sodium level also improved. Has been voiding. No edema. Denies chest pain or shortness of breath. On room air. Potassium 5.7 today. Vital signs are stable. General: No acute distress. HEENT: Head exam is unremarkable. LUNGS: Breath sounds decreased. HEART: Rate and Rhythm are regular. ABDOMEN: Soft, no distention. EXTREMITITES: No edema. Objective - Vital Signs Vital signs: Vital Signs Temp 97.6 F 10/15/22 07:34 Pulse 64 10/15/22 12:22 Resp 18 10/15/22 12:22 BP 145/74 10/15/22 12:22 Pulse Ox 100 10/15/22 12:22 FiO2 Intake & Output 10/14/22 10/15/22 10/15/22 18:59 06:59 18:59 Intake Total 375 118 Output Total 325 1200 Balance 50 -1200 118 Intake: IV 375 Sodium Chloride 0.9% 1, 375 000 ml @ 75 mls/hr IV . [id number] [facility] Rx#:[id number] Oral 118 Output: Urine 325 1200 Other: Voiding Method Toilet Toilet Urinal Urinal # Voids 3 # Bowel Movements 1 - Labs CBC & Chem 7: 10/13/22 07:44 10/15/22 07:54 Labs: Abnormal Lab Results - Last 24 Hours (Table) 10/14/22 10/14/22 10/15/22 Range/Units 12:56 20:22 06:52 Sodium (137-145) mmol/L Potassium (3.5-5.1) mmol/L BUN (9-20) mg/dL Creatinine (0.66-1.25) mg/dL POC Glucose (mg/dL) 269 H 143 H 118 H (70-110) mg/dL Calcium (8.4-10.2) mg/dL 10/15/22 10/15/22 Range/Units 07:54 11:58 Sodium 135 L (137-145) mmol/L Potassium 5.7 H (3.5-5.1) mmol/L BUN 28 H (9-20) mg/dL Creatinine 1.51 H (0.66-1.25) mg/dL POC Glucose (mg/dL) 172 H (70-110) mg/dL Calcium 8.1 L (8.4-10.2) mg/dL Assessment and Plan Plan: Assessment: 1. Acute kidney injury secondary to ATN secondary to contrast-induced acute kidney injury and hypotension, further worsened with the use of RCI inhibitor. No evidence of urinary retention. Renal ultrasound done earlier this month showed no evidence of hydronephrosis. Trace protein on UA. Creatinine is low as 1.03 this admission and peaked at 2.4 this admission - 1.51 today. 2. Hyponatremia secondary to acute kidney injury and component of hypovolemia. Improved with normal saline. Urine sodium 21 and urine osmolality 258. 3. Coronary artery disease status post cardiac catheterization with angioplasty of the LAD on 10/10/2022. 4. Hyperkalemia secondary to acute kidney injury and lisinopril. 5. Diabetes mellitus. Plan: Hep-Lock IV fluids. Encouraged oral intake. Continue to hold lisinopril and diuretics. Continue to monitor renal function and urine output. Patient received lokelma this AM. Lasix 20 mg IV once today. Renal diet. Check potassium level this evening.
--- NOTE | 2022-10-15 15:44 | P.PN ---
Subjective Progress Note Date: 10/15/22 (delayed charting seen at 0945) Patient is an 82 year old male with DM, prior CVA, PTSD/depression, hypetension, and CAD. He was admitted to the hospital from 10/03/22-10/07/22 for STEMI requiring PCI to proximal LAD with LUCY. He presented to the ED on 10/10/22 for chest pain. He was non compliant with dual antiplatelets. In the ED his EKG showed ST elevation on the precordial leads, cardiology recommended taking the patient to the candlemaking laborer to rule out stent restenosis. Patient was started on heparin drip and nitro infusion and admitted for further management of symptoms. He emergently underwent coronary angiogram with balloon angioplasty of the left anterior descending for late in stent thrombosis. He underwent echocardiogram which showed ejection fraction 45-50%. He developed some mild hyponatremia and acute kidney injury and was taken off of hydrochlorothiazide (received 1 dose 10/11/22). His renal continued to worsen and he was having episodes of hypotension. Nephrology was consulted. Patient started on IV fluids. His renal function improved, sodium improved, but potassium remains slightly elevated. Renal US shows bladder wall thickening. He did have some hypotension which resolved with fluids. He became hyperkalemic despite being off of RIC inhibitor. He was given 1 on 10/15/22. Patient seen and examined at bedside. No sore throat today, feeling tired and woren out, no chest pain, mild SOB General: nontoxic, no distress, appears at stated age Derm: warm, dry Head: atraumatic, normocephalic, symmetric, Hard of hearing Eyes: EOMI, no lid lag, anicteric sclera Mouth: no lip lesion, mucus membranes moist Cardiovascular: S1S2 reg, no murmur, positive posterior tibial pulse bilateral, Lungs: Decreased bs bilateral, no rhonchi, no rales , no accessory muscle use Abdominal: soft, nontender to palpation, no guarding, no appreciable organomegaly Ext: no gross muscle atrophy, no edema, no contractures Neuro: CN II-XI grossly intact, no focal neuro deficits Psych: Alert, oriented, appropriate affect Assessment/Plan: STEMI due to Late in stent thrombosis. Ischemic cardiomyopathy EF 45-50% - ASA, lipitor, Plavix, Metoprolol - cardio recs appreciated. Hyponatremia, improving Acute kidney injury-- likely hypotension and contrast. Hyperkalemia, recurrent and worsening off ACEI, Lokalemia X 1 Hypotension, improving - nephro recs appreciated - IVF stopped, CXR unchanged - repeat BMP in AM - hold lisinopril - Post void negative per nursing - Renal US with chronic bladder wall thickening. Diabetes mellitus with hyperglycemia - Highest BS in 24 hours 269, however also some low BD, stop fixed dose novolog with meals - A1c 9.29 September 2022. - Conitnue Levemir to 20 units daily. - SSI Normocytic anemia - outpatient work up Recent COVID-19 Resolved: Hypomagnesemia Chronic conditions: Hypertension, history of CVA, PTSD/depression - reviewed BMP and BS, will recheck BMP in AM Home once potassium and renal function stable, have arranged for home care. Active Medications Generic Name Dose Route Start Last Admin Trade Name Freq PRN Reason Stop Dose Admin Acetaminophen 650 mg 10/11/22 13:26 Acetaminophen Tab 325 Mg Tab PO Q4HR PRN Fever and/ or Pain Al Hydroxide/Mg Hydroxide 30 ml 10/11/22 00:00 Mag Hydrox/Al Hydrox/Simeth 30 Ml Cup PO Q4HR PRN Heartburn Artificial Tears 1 drops 10/11/22 09:00 10/15/22 12:24 Artificial Tears-Hypromellose Drops 15 Ml Btl BOTH EYES 1 drops QID YASEMIN Administration Aspirin 81 mg 10/11/22 09:00 10/15/22 08:32 Aspirin 81 Mg PO 81 mg DAILY YASEMIN Administration Atorvastatin Calcium 80 mg 10/11/22 21:00 10/14/22 21:18 Atorvastatin 80 Mg Tab PO 80 mg HS YASEMIN Administration Benzonatate 200 mg 10/11/22 13:26 Benzonatate 100 Mg Cap PO TID PRN Cough Clopidogrel Bisulfate 75 mg 10/11/22 09:00 10/15/22 08:32 Clopidogrel 75 Mg Tab PO 75 mg DAILY YASEMIN Administration Duloxetine HCl 30 mg 10/11/22 09:00 10/15/22 08:32 Duloxetine Hcl 30 Mg Capsule.Dr PO 30 mg DAILY YASEMIN Administration Finasteride 5 mg 10/11/22 09:00 10/15/22 08:32 Finasteride 5 Mg Tab PO 5 mg DAILY YASEMIN Administration Insulin Aspart 0 unit 10/11/22 07:30 10/15/22 12:26 Insulin Aspart (Novolog) 100 Unit/Ml Vial SQ 3 unit ACHS YASEMIN Administration Protocol Insulin Detemir 20 unit 10/12/22 07:00 10/15/22 06:55 Insulin Detemir (Levemir) 100 Unit/Ml Syr SQ 20 unit DAILY@0700 YASEMIN Administration Magnesium Oxide 400 mg 10/11/22 09:00 10/15/22 08:32 Magnesium Oxide 400 Mg Tab PO 400 mg DAILY YASEMIN Administration Metoprolol Succinate 50 mg 10/13/22 21:00 10/15/22 08:32 Metoprolol Succinate (Er) 50 Mg Tab.Er.24h PO 50 mg BID YASEMIN Administration Miscellaneous Information 1 each 10/12/22 05:41 Magnesium Replacement Protocol 1 Each Misc MISCELLANE DAILY PRN Per Protocol Protocol Naloxone HCl 0.2 mg 10/10/22 21:32 Naloxone 0.4 Mg/Ml 1 Ml Vial IV Q2M PRN Opioid Reversal Nitroglycerin 0.4 mg 10/10/22 22:56 Nitroglycerin Sl Tabs 0.4 Mg Tab SUBLINGUAL Q5M PRN Chest Pain Pantoprazole Sodium 40 mg 10/11/22 09:00 10/15/22 08:32 Pantoprazole 40 Mg Tablet PO 40 mg DAILY YASEMIN Administration Senna/Docusate Sodium 1 each 10/11/22 09:00 Sennosides-Docusate Sodium 1 Each Tab PO DAILY PRN Constipation Tamsulosin HCl 0.8 mg 10/11/22 17:30 10/14/22 17:17 Tamsulosin 0.4 Mg Cap.Er.24h PO 0.8 mg W/SUPPER YASEMIN Administration Objective - Vital Signs Vital signs: Vital Signs Temp 97.6 F 10/15/22 07:34 Pulse 64 10/15/22 14:00 Resp 18 10/15/22 14:00 BP 145/74 10/15/22 12:22 Pulse Ox 100 10/15/22 12:22 FiO2 Intake & Output 10/14/22 10/15/22 10/15/22 18:59 06:59 18:59 Intake Total 375 236 Output Total 325 1200 Balance 50 -1200 236 Intake: IV 375 Sodium Chloride 0.9% 1, 375 000 ml @ 75 mls/hr IV . [id number] [facility] Rx#:[id number] Oral 236 Output: Urine 325 1200 Other: Voiding Method Toilet Toilet Urinal Urinal # Voids 3 3 # Bowel Movements 1 - Labs CBC & Chem 7: 10/13/22 07:44 10/15/22 07:54 Labs: Abnormal Lab Results - Last 24 Hours (Table) 10/14/22 10/15/22 10/15/22 Range/Units 20:22 06:52 07:54 Sodium 135 L (137-145) mmol/L Potassium 5.7 H (3.5-5.1) mmol/L BUN 28 H (9-20) mg/dL Creatinine 1.51 H (0.66-1.25) mg/dL POC Glucose (mg/dL) 143 H 118 H (70-110) mg/dL Calcium 8.1 L (8.4-10.2) mg/dL 10/15/22 Range/Units 11:58 Sodium (137-145) mmol/L Potassium (3.5-5.1) mmol/L BUN (9-20) mg/dL Creatinine (0.66-1.25) mg/dL POC Glucose (mg/dL) 172 H (70-110) mg/dL Calcium (8.4-10.2) mg/dL
[2022-10-15 16:52] LABS: Glucose,Whole Blood 131 mg/dL (70-110)
[2022-10-15] MEDS: TAMSULOSIN 0.4 MG CAP.ER.24H PO SCH (17:27)
[2022-10-15 20:09] LABS: Glucose,Whole Blood 209 mg/dL (70-110)
[2022-10-15] MEDS: ATORVASTATIN 80 MG TAB PO SCH (20:39)
[2022-10-16 06:34] LABS: Glucose,Whole Blood 95 mg/dL (70-110)
[2022-10-16] MEDS: INSULIN ASPART (NovoLOG) 100 UNIT/ML VIAL SQ SCH ×2 (06:45→12:00)
[2022-10-16] MEDS: INSULIN DETEMIR (LEVEMIR) 100 UNIT/ML SYR SQ SCH (06:45)
[2022-10-16 07:36] LABS: HCT 27.9 % (39.0-53.0); MCH 27.2 pg (25.0-35.0); MCHC 32.2 g/dL (31.0-37.0); MCV 84.5 fL (80.0-100.0); Mean Platelet Volume 7.9; Platelet Count 220 k/uL (150-450); RBC 3.31 m/uL (4.30-5.90); RDW 13.6 % (11.5-15.5); WBC 6.6 k/uL (3.8-10.6)
[2022-10-16 08:12] LABS: Albumin 3.1 g/dL (3.5-5.0); Magnesium 1.6 mg/dL (1.6-2.3); Total Bilirubin 0.5 mg/dL (0.2-1.3); Total Protein 5.8 g/dL (6.3-8.2)
[2022-10-16 08:59] VITALS: TEMP 97.6
[2022-10-16] MEDS: CLOPIDOGREL 75 MG TAB PO SCH (09:10)
[2022-10-16] MEDS: MAGNESIUM OXIDE 400 MG TAB PO SCH (09:10)
[2022-10-16] MEDS: ASPIRIN 81 MG PO SCH (09:10)
[2022-10-16] MEDS: ARTIFICIAL TEARS-HYPROMELLOSE DROPS 15 ML BTL BOTH EYES SCH ×2 (09:10→12:00)
[2022-10-16] MEDS: FINASTERIDE 5 MG TAB PO SCH (09:10)
[2022-10-16] MEDS: PANTOPRAZOLE 40 MG TABLET PO SCH (09:10)
[2022-10-16] MEDS: METOPROLOL SUCCINATE (ER) 50 MG TAB.ER.24H PO SCH (09:10)
[2022-10-16] MEDS: DULoxetine HCL 30 MG CAPSULE.DR PO SCH (09:10)
--- NOTE | 2022-10-16 09:23 | P.PN ---
Subjective Progress Note Date: 10/16/22 HISTORY OF PRESENT ILLNESS: This is an 82-year-old male who was recently admitted to the hospital and underwent stenting of the LAD. The patient was discharged home and apparently was not taking his medications including his dual anti-platelet therapy. The patient presented back to the hospital with chest discomfort. The patient was found to have acute STEMI. He underwent cardiac catheterization with angioplasty of the LAD on 10/10/2022. Patient examined this morning at the bedside. The patient denies chest pain or pressure. He denies shortness of breath. Echocardiogram completed revealing ejection fraction 45-50%. The patient was found to have worsening kidney function this morning with a creatinine of 2.4. The patient has been hypotensive with blood pressure re adings in the 80s. 10/14/2022 Patient examined this morning at the bedside. Patient denies chest pain or pressure. He denies shortness of breath. Patient received IV fluids overnight and his creatinine has improved to 1.89 today. Blood pressure 113/55. 10/15/2022 Patient examined this morning at the bedside. Patient denies chest pain or pressure. He reports shortness of breath this morning with exertion which is new from yesterday. He has been receiving IV fluids secondary to acute kidney injury. Creatinine today 1.51. Vital signs are stable. 10/16/2022 Patient examined this morning at the bedside. Patient denies chest pain or pressure. He reports resolution of his shortness of breath. He reports decreased energy this morning. Patient's vital signs are stable. Patient's blood pressure running [id number]. Patient received a one-time dose of IV Lasix per nephrology yesterday. Creatinine this morning is 1.32. PHYSICAL EXAM: VITAL SIGNS: Reviewed. GENERAL: Well-developed in no acute distress. NECK: Supple. No JVD or thyromegaly LUNGS: Respirations even and unlabored. Lungs with crackles at right base and diminished at left base HEART: Regular rate and rhythm. S1 and S2 heard. EXTREMITIES: Normal range of motion. No clubbing or cyanosis. Peripheral pulses intact. No lower extremity edema. Right radial cath site with pulse present. ASSESSMENT: STEMI, status post angioplasty of the LAD Recent hospitalization for NSTEMI with stenting of the LAD Mild ischemic cardiomyopathy, ejection fraction 45% Medication noncompliance Acute kidney injury Hypotension History of hypertension Hyperlipidemia PLAN: Continue current cardiac medications Continue dual antiplatelet therapy with aspirin and Plavix Continue to hold lisinopril secondary to acute kidney injury. This will be readdressed on an outpatient basis. Patient is stable for discharge home today from a cardiac standpoint He is to follow up on an outpatient basis with Dr. Nelson Nurse practitioner note has been reviewed by physician. Signing provider agrees with the documented findings, assessment, and plan of care. Objective - Vital Signs Vital signs: Vital Signs Temp 97.6 F 10/16/22 08:58 Pulse 66 10/16/22 08:58 Resp 18 10/16/22 08:58 BP 122/58 10/16/22 08:58 Pulse Ox 95 10/16/22 08:58 FiO2 Intake & Output 10/15/22 10/16/22 10/16/22 18:59 06:59 18:59 Intake Total 354 Output Total 700 Balance 354 -700 Intake: Oral 354 Output: Urine 700 Other: Voiding Method Toilet Toilet Urinal Urinal # Voids 3 - Labs CBC & Chem 7: 10/16/22 07:07 10/16/22 07:07 Labs: Abnormal Lab Results - Last 24 Hours (Table) 10/15/22 10/15/22 10/15/22 Range/Units 11:58 16:48 16:49 RBC (4.30-5.90) m/uL Hgb (13.0-17.5) gm/dL Hct (39.0-53.0) % Sodium (137-145) mmol/L Potassium 5.7 H (3.5-5.1) mmol/L BUN (9-20) mg/dL Creatinine (0.66-1.25) mg/dL POC Glucose (mg/dL) 172 H 131 H (70-110) mg/dL Calcium (8.4-10.2) mg/dL Alkaline Phosphatase (38-126) U/L Total Protein (6.3-8.2) g/dL Albumin (3.5-5.0) g/dL 10/15/22 10/16/22 10/16/22 Range/Units 20:08 07:07 07:07 RBC 3.31 L (4.30-5.90) m/uL Hgb 9.0 L (13.0-17.5) gm/dL Hct 27.9 L (39.0-53.0) % Sodium 133 L (137-145) mmol/L Potassium (3.5-5.1) mmol/L BUN 23 H (9-20) mg/dL Creatinine 1.32 H (0.66-1.25) mg/dL POC Glucose (mg/dL) 209 H (70-110) mg/dL Calcium 8.0 L (8.4-10.2) mg/dL Alkaline Phosphatase 137 H (38-126) U/L Total Protein 5.8 L (6.3-8.2) g/dL Albumin 3.1 L (3.5-5.0) g/dL
--- NOTE | 2022-10-16 10:25 | P.DS ---
Providers Date of admission: 10/10/22 21:33 Expected date of discharge: 10/16/22 Attending physician: Clemencia Temple MD Consults: 10/10/22 22:57 Consult Physician Routine Consulting Provider: [facility] Consult Reason/Comments: Post Interventional patient Do you want consulting provider notified?: Already Contacted 10/13/22 09:19 Consult Physician Routine Consulting Provider: Burke Meeks Consult Reason/Comments: ZOEY, hyperkalemia Do you want consulting provider notified?: Yes Primary care physician: [facility] Hospital Course: Admitting diagnoses: STEMI Discharge diagnoses: STEMI due to late in-stent thrombosis Ischemic cardiomyopathy EF = 45-50% ZOEY likely due to hypotension and contrast improved Hypotension resolved Insulin-dependent diabetes mellitus type 2 Normocytic anemia Hypertension History of CVA PTSD Depression Hospital course: 82 year old male with DM , hypetension, CAD s/p stents. Patient came in for chest pain evaluation. He was relaxed resting, watching tv when suddenly he experienced chest pressure 8/10 in severity non radiating, associated with heavy breathing. Patient took some nitro pills and it helped ease down the pain, but he was concerned that he is having another heart attack. Patient admitted that he was non-compliant with dual antiplatelets. Patient was recently hospitalized and discharged 3 days prior to this admission. At that time he was taken to senior laboratory technician for STEMI and required PCI to proximal LAD with LUCY. He was also noted to be COIVD positive at the time. Echo showed LVEF of 55%. He was also diagnosed and treated for UTI, urine culture was positive. On this admission, patient EKG showed ST elevation on the precordial leads, cardiology recommended taking the patient to the senior laboratory technician to rule out stent restenosis. Patient was started on heparin drip and nitro infusion. Limited blood work available at this time, showing mild chronic stable anemia. no trops available no renal function or electrolytes. EKG showed ST elevation on precordial leads. General: [non toxic], [no distress], [appears at stated age] Derm: [warm], [dry] Head: [atraumatic], [normocephalic], [symmetric] Eyes: [EOMI], [no lid lag], [anicteric sclera] Mouth: [no lip lesion], [mucus membranes moist] Cardiovascular: [S1S2 reg], [no murmur], [positive posterior tibial pulse bilateral], Lungs: [CTA bilateral], [no rhonchi, no rales] , [no accessory muscle use] Abdominal: [soft], [ nontender to palpation], [no guarding], [no appreciable organomegaly] Ext: [no gross muscle atrophy], [no edema], [no contractures] Neuro: [ CN II-XI grossly intact], [no focal neuro deficits] Psych: [Alert], [oriented], [appropriate affect] Clinical course: STEMI due to Late in stent thrombosis. Ischemic cardiomyopathy EF 45-50% - ASA, lipitor, Plavix, Metoprolol - cardiology followed Hyponatremia, improving Acute kidney injury-- likely hypotension and contrast. improving Hyperkalemiaresolved off ACEI, Lokalemia given during hospital stay Hypotension resolved - nephro followed - IVF stopped, CXR unchanged - BMP improve creatinine 1.32 repeat with PCP - hold lisinopril - Post void negative per nursing - Renal US with chronic bladder wall thickening. Diabetes mellitus with hyperglycemia - Highest BS in 24 hours 269, however also some low BD, stop fixed dose novolog with meals - A1c 9.29 September 2022. - Conitnue insulin - SSI Normocytic anemia - outpatient work up Recent COVID-19 Resolved: Hypomagnesemia Chronic conditions: Hypertension, history of CVA, PTSD/depression - reviewed BMP and BS, will recheck BMP in AM Disposition: Home with home care Condition: Stable Activity: As tolerated Diet: Diabetic Follow-up with PCP within 2-7 days Up with cardiology in 1 week Patient Condition at Discharge: Fair Plan - Discharge Summary Discharge Rx Participant: Yes New Discharge Prescriptions: Continue Tamsulosin HCl [Flomax] 0.8 mg PO W/SUPPER Omeprazole [PriLOSEC] 20 mg PO DAILY Glimepiride [Amaryl] 1 mg PO DAILY Finasteride [Proscar] 5 mg PO DAILY DULoxetine HCL [Cymbalta] 30 mg PO DAILY glipiZIDE [Glucotrol] 10 mg PO DAILY Aspirin [[place] Aspirin EC] 81 mg PO DAILY Metoprolol Succinate (ER) [Toprol XL] 50 mg PO BID #60 tab Magnesium Oxide 400 mg PO DAILY Atorvastatin Calcium [Lipitor] 80 mg PO HS Insulin Glargine,Hum.rec.anlog [Insulin Glargine Solostar] 15 units SQ DAILY Erythromycin Ophth Oint (1 gm) [Ilotycin Ophth Oint (1 gm)] 1 applic TOPICAL HS Sennosides/Docusate Sodium [Senna Plus 8.6-50 mg Tablet] 1 tab PO DAILY PRN PRN Reason: Constipation Carboxymethylcellulose Sodium [Thera Tears] 1 drop BOTH EYES QID Nitroglycerin Sl Tabs [Nitrostat] 0.4 mg SUBLINGUAL Q5M PRN #30 tab PRN Reason: Chest Pain Clopidogrel [Plavix] 75 mg PO DAILY #90 tab Discontinued lisinopriL [Zestril] 20 mg PO DAILY #30 tab Amoxic-Pot Clav 875-125Mg [Augmentin 875-125] 1 tab PO Q12HR 5 Days #10 tab Discharge Medication List Aspirin [[place] Aspirin EC] 81 mg PO DAILY 10/03/22 [History] Atorvastatin Calcium [Lipitor] 80 mg PO HS 10/03/22 [History] Carboxymethylcellulose Sodium [Thera Tears] 1 drop BOTH EYES QID 10/03/22 [History] DULoxetine HCL [Cymbalta] 30 mg PO DAILY 10/03/22 [History] Erythromycin Ophth Oint (1 gm) [Ilotycin Ophth Oint (1 gm)] 1 applic TOPICAL HS 10/03/22 [History] Finasteride [Proscar] 5 mg PO DAILY 10/03/22 [History] Glimepiride [Amaryl] 1 mg PO DAILY 10/03/22 [History] Insulin Glargine,Hum.rec.anlog [Insulin Glargine Solostar] 15 units SQ DAILY 10/03/22 [History] Magnesium Oxide 400 mg PO DAILY 10/03/22 [History] Omeprazole [PriLOSEC] 20 mg PO DAILY 10/03/22 [History] Sennosides/Docusate Sodium [Senna Plus 8.6-50 mg Tablet] 1 tab PO DAILY PRN 10/03/22 [History] Tamsulosin HCl [Flomax] 0.8 mg PO W/SUPPER 10/03/22 [History] glipiZIDE [Glucotrol] 10 mg PO DAILY 10/03/22 [History] Clopidogrel [Plavix] 75 mg PO DAILY #90 tab 10/07/22 [Rx] Metoprolol Succinate (ER) [Toprol XL] 50 mg PO BID #60 tab 10/07/22 [Rx] Nitroglycerin Sl Tabs [Nitrostat] 0.4 mg SUBLINGUAL Q5M PRN #30 tab 10/07/22 [Rx] Follow up Appointment(s)/Referral(s): Bear Nelson MD [STAFF PHYSICIAN] - 1 Week Patient Instructions/Handouts: Epilepsy (DC) Activity/Diet/Wound Care/Special Instructions: [facility] and the home care agency will call you to set up a time for a visit.
[2022-10-16 11:37] LABS: Glucose,Whole Blood 163 mg/dL (70-110)
--- NOTE | 2022-10-16 11:50 | P.PN ---
Subjective Patient is seen in follow for acute kidney injury. Renal function better. Potassium level better. Has been voiding. No edema. Denies chest pain or shortness of breath. On room air. No active complaints. Vital signs are stable. General: No acute distress. HEENT: Head exam is unremarkable. LUNGS: Breath sounds decreased. HEART: Rate and Rhythm are regular. ABDOMEN: Soft, no distention. EXTREMITITES: No edema. Objective - Vital Signs Vital signs: Vital Signs Temp 97.6 F 10/16/22 08:58 Pulse 66 10/16/22 08:58 Resp 18 10/16/22 08:58 BP 122/58 10/16/22 08:58 Pulse Ox 95 10/16/22 08:58 FiO2 Intake & Output 10/15/22 10/16/22 10/16/22 18:59 06:59 18:59 Intake Total 354 Output Total 700 Balance 354 -700 Intake: Oral 354 Output: Urine 700 Other: Voiding Method Toilet Toilet Toilet Urinal Urinal Urinal # Voids 3 - Labs CBC & Chem 7: 10/16/22 07:07 10/16/22 07:07 Labs: Abnormal Lab Results - Last 24 Hours (Table) 10/15/22 10/15/22 10/15/22 Range/Units 11:58 16:48 16:49 RBC (4.30-5.90) m/uL Hgb (13.0-17.5) gm/dL Hct (39.0-53.0) % Sodium (137-145) mmol/L Potassium 5.7 H (3.5-5.1) mmol/L BUN (9-20) mg/dL Creatinine (0.66-1.25) mg/dL POC Glucose (mg/dL) 172 H 131 H (70-110) mg/dL Calcium (8.4-10.2) mg/dL Alkaline Phosphatase (38-126) U/L Total Protein (6.3-8.2) g/dL Albumin (3.5-5.0) g/dL 10/15/22 10/16/22 10/16/22 Range/Units 20:08 07:07 07:07 RBC 3.31 L (4.30-5.90) m/uL Hgb 9.0 L (13.0-17.5) gm/dL Hct 27.9 L (39.0-53.0) % Sodium 133 L (137-145) mmol/L Potassium (3.5-5.1) mmol/L BUN 23 H (9-20) mg/dL Creatinine 1.32 H (0.66-1.25) mg/dL POC Glucose (mg/dL) 209 H (70-110) mg/dL Calcium 8.0 L (8.4-10.2) mg/dL Alkaline Phosphatase 137 H (38-126) U/L Total Protein 5.8 L (6.3-8.2) g/dL Albumin 3.1 L (3.5-5.0) g/dL 10/16/22 Range/Units 11:36 RBC (4.30-5.90) m/uL Hgb (13.0-17.5) gm/dL Hct (39.0-53.0) % Sodium (137-145) mmol/L Potassium (3.5-5.1) mmol/L BUN (9-20) mg/dL Creatinine (0.66-1.25) mg/dL POC Glucose (mg/dL) 163 H (70-110) mg/dL Calcium (8.4-10.2) mg/dL Alkaline Phosphatase (38-126) U/L Total Protein (6.3-8.2) g/dL Albumin (3.5-5.0) g/dL Assessment and Plan Plan: Assessment: 1. Acute kidney injury secondary to ATN secondary to contrast-induced acute kidney injury and hypotension, further worsened with the use of RIC inhibitor. No evidence of urinary retention. Renal ultrasound done earlier this month showed no evidence of hydronephrosis. Trace protein on UA. Creatinine is low as 1.03 this admission and peaked at 2.4 this admission - 1.32 today. 2. Hyponatremia secondary to acute kidney injury and component of hypovolemia. Improved with normal saline. Urine sodium 21 and urine osmolality 258. 3. Coronary artery disease status post cardiac catheterization with angioplasty of the LAD on 10/10/2022. 4. Hyperkalemia secondary to acute kidney injury and lisinopril. Better. 5. Diabetes mellitus. Plan: Encouraged oral intake. Continue to hold lisinopril. Add oral Lasix 20 mg once daily. Continue to monitor renal function and urine output. Repeat BMP and magnesium level 2-3 days postdischarge. Follow up outpatient in 1 week.
[2022-10-16 12:01] VITALS: BP 129/64; PULSE 65; RESP 16
[2022-10-17] MEDS ORDERED: FUROSEMIDE 20 MG TAB PO SCH (09:00)
== END 2022-10-16 13:35 | disposition home health service (06) | DRG 250 ==
LOC: EC 20:57 → 2SICU 21:33 → 3SCARD 10-12 11:01
PROVIDERS: ADMIT Internal Medicine; ATTEND Internal Medicine
PROC: 02C03ZZ Extirpation of Matter from Coronary Artery, One Artery, Percutaneous Approach (ICD-10-PCS; principal; 2022-10-10 21:46)
PROC: 02703ZZ Dilation of Coronary Artery, One Artery, Percutaneous Approach (ICD-10-PCS; principal; 2022-10-10 21:46)
PROC: 4A023N7 Measurement of Cardiac Sampling and Pressure, Left Heart, Percutaneous Approach (ICD-10-PCS; principal; 2022-10-10 21:46)
DX: I21.09 ST elevation (STEMI) myocardial infarction involving other coronary artery of anterior wall (principal); N17.0 Acute kidney failure with tubular necrosis; E87.1 Hypo-osmolality and hyponatremia; T82.867A Thrombosis due to cardiac prosthetic devices, implants and grafts, initial encounter; F32.A Depression, unspecified; D64.9 Anemia, unspecified; I10 Essential (primary) hypertension; E78.5 Hyperlipidemia, unspecified; E83.42 Hypomagnesemia; I25.5 Ischemic cardiomyopathy; E86.1 Hypovolemia; E87.5 Hyperkalemia; F43.10 Post-traumatic stress disorder, unspecified; G47.00 Insomnia, unspecified; I25.10 Atherosclerotic heart disease of native coronary artery without angina pectoris; I25.2 Old myocardial infarction; K21.9 Gastro-esophageal reflux disease without esophagitis; Z87.440 Personal history of urinary (tract) infections; T50.8X5A Adverse effect of diagnostic agents, initial encounter; Y83.1 Surgical operation with implant of artificial internal device as the cause of abnormal reaction of the patient, or of later complication, without mention of misadventure at the time of the procedure; Z79.02 Long term (current) use of antithrombotics/antiplatelets; Z79.82 Long term (current) use of aspirin; Z79.4 Long term (current) use of insulin; Z79.84 Long term (current) use of oral hypoglycemic drugs; Z79.899 Other long term (current) drug therapy; Z82.49 Family history of ischemic heart disease and other diseases of the circulatory system; Z86.16 Personal history of COVID-19; Z86.73 Personal history of transient ischemic attack (TIA), and cerebral infarction without residual deficits; Z87.01 Personal history of pneumonia (recurrent); T45.526A Underdosing of antithrombotic drugs, initial encounter; Z91.128 Patient's intentional underdosing of medication regimen for other reason
CPT/HCPCS: 36415; 71045; 76770; 80048; 80053; 81001; 82550; 82553; 83735; 83880; 83930; 83935; 84132; 84300; 84484; 85025; 85027; 85610; 85730; 92920; 92978; 93005; 93308; 93454; 94760

== ENCOUNTER 2023-08-30 00:59 | Inpatient (IN) | payer OTHER, MEDICARE ==
[2023-08-30] MEDS ORDERED: MORPHINE SULFATE 4 MG/ML SYRINGE IV STA (01:04)
[2023-08-30] MEDS ORDERED: NITROGLYCERIN SL TABS 0.4 MG TAB SUBLINGUAL PRN (01:04)
[2023-08-30] MEDS ORDERED: NITROGLYCERIN-D5W PMX 50 MG in DEXTROSE/WATER 1 250ML.BAG IV ONE (01:08)
[2023-08-30] MEDS ORDERED: ONDANSETRON 4 MG/2 ML VIAL IVP STA (01:17)
[2023-08-30 01:31] LABS: Basophils # (A) 0.1 k/uL (0-0.2); Basophils % (A) 1 %; Eosinophils # (A) 0.2 k/uL (0-0.7); Eosinophils % (A) 2 %; HCT 38.5 % (39.0-53.0); HGB 12.7 gm/dL (13.0-17.5); Lymphocytes # (A) 2.5 k/uL (1.0-4.8); Lymphocytes % (A) 20 %; MCH 28.7 pg (25.0-35.0); MCHC 32.9 g/dL (31.0-37.0); MCV 87.1 fL (80.0-100.0); Mean Platelet Volume 8.1; Monocytes # (A) 0.7 k/uL (0-1.0); Monocytes % (A) 6 %; Neutrophils # (A) 9.2 k/uL (1.3-7.7); Neutrophils % (A) 71 %; Platelet Count 267 k/uL (150-450); RBC 4.42 m/uL (4.30-5.90); RDW 14.1 % (11.5-15.5)
--- NOTE | 2023-08-30 01:35 | XR ---
EXAM: XR Chest, 1 View CLINICAL HISTORY: ITS.REASON XR Reason: chest pain TECHNIQUE: Frontal view of the chest. COMPARISON: 11/05/2022 FINDINGS: Lungs: Bibasilar opacification. Pleural space: No acute findings. No pneumothorax. Heart: Cardiac silhouette is stable. Bones/joints: No acute osseous abnormality. IMPRESSION: Bibasilar opacification. Findings may represent atelectasis versus pneumonia.
[2023-08-30 01:46] LABS: ALT 22 U/L (4-49); AST 31 U/L (17-59); African American GFR (CKD) 43 (>60 ml/min/1.73 sqM); Albumin 4.3 g/dL (3.5-5.0); Alkaline Phosphatase 174 U/L (38-126); Anion Gap 12 mmol/L; Blood Urea Nitrogen 41 mg/dL (9-20); Calcium 8.7 mg/dL (8.4-10.2); Carbon Dioxide 24 mmol/L (22-30); Chloride 100 mmol/L (98-107); Glucose 210 mg/dL (74-99); Magnesium 2.1 mg/dL (1.6-2.3); Non-African American GFR(CKD) 37 (>60 ml/min/1.73 sqM); Potassium 4.9 mmol/L (3.5-5.1); Sodium 136 mmol/L (137-145); Total Bilirubin 0.8 mg/dL (0.2-1.3); Total Protein 7.7 g/dL (6.3-8.2)
[2023-08-30 01:58] LABS: Prothrombin Time 10.5 sec (10.0-12.5)
[2023-08-30 02:01] LABS: Partial Thromboplastin Time 21.7 sec (22.0-30.0)
[2023-08-30] MEDS ORDERED: NITROGLYCERIN OINT 1 INCH/GM PACKET TOPICAL STA (03:59)
--- NOTE | 2023-08-30 04:56 | ED ---
SOB HPI - General Chief Complaint: Shortness of Breath Stated Complaint: Chest pain Time Seen by Provider: 08/30/23 01:03 Source: patient Mode of arrival: EMS Limitations: physical limitation (Severe dyspnea) - History of Present Illness Initial Comments: HPatient is an 82-year-old man who presents to have evaluation for chest pain and dyspnea. The patient states that he started having some upper chest pain 2 days ago. It was initially mild to moderate intensity. He notes that over the course of last night starting about 9 PM pain intensified and he started to become increasingly short of breath. Family called EMS tonight when he was not able to breathe at all. Patient has had some cough but no sputum. He had not noted fever or chills. No change in urination or bowel movements. No leg pain or swelling. MD Complaint: shortness of breath, chest pain Onset/Timin -: days(s) Severity: severe Quality: other Consistency: constant Improves With: nothing Worsens With: lying flat Associated Symptoms: cough Treatments Prior to Arrival: oxygen, aspirin, nitroglycerin - Related Data Home Oxygen Therapy: No Home Medications Medication Instructions Recorded Confirmed Aspirin [[place] Aspirin EC] 81 mg PO DAILY 10/03/22 08/30/23 Atorvastatin Calcium [Lipitor] 80 mg PO HS 10/03/22 08/30/23 Carboxymethylcellulose Sodium 1 drop BOTH EYES QID 10/03/22 08/30/23 [Thera Tears] Finasteride [Proscar] 5 mg PO DAILY 10/03/22 08/30/23 Insulin Glargine,Hum.rec.anlog 35 units SQ DAILY 10/03/22 08/30/23 [Insulin Glargine Solostar] Magnesium Oxide 400 mg PO BID 10/03/22 08/30/23 Omeprazole [PriLOSEC] 20 mg PO DAILY 10/03/22 08/30/23 Sennosides/Docusate Sodium [Senna 1 tab PO DAILY PRN 10/03/22 08/30/23 Plus 8.6-50 mg Tablet] Tamsulosin HCl [Flomax] 0.4 mg PO BID 10/03/22 08/30/23 glipiZIDE [Glucotrol] 20 mg PO AC-BID 10/03/22 08/30/23 Nitroglycerin Sl Tabs [Nitrostat] 0.4 mg SL Q5M PRN 11/05/22 08/30/23 DULoxetine HCL [Cymbalta] 60 mg PO DAILY 08/30/23 08/30/23 Empagliflozin [Jardiance] 25 mg PO DAILY 08/30/23 08/30/23 Isosorbide Mononitrate ER [Imdur] 30 mg PO DAILY 08/30/23 08/30/23 Levothyroxine Sodium [Synthroid] 25 mcg PO DAILY 08/30/23 08/30/23 Mv-Min/Folic/K1/Lycopen/Lutein 1 tab PO DAILY 08/30/23 08/30/23 [Centrum Silver Men Tablet] lisinopriL [Zestril] 10 mg PO DAILY 08/30/23 08/30/23 Previous Rx's Medication Instructions Recorded Clopidogrel [Plavix] 75 mg PO DAILY #90 tab 10/07/22 Furosemide [Lasix] 40 mg PO DAILY #30 tablet 11/08/22 carvediloL [Coreg] 6.25 mg PO BID-W/MEALS #60 tab 11/08/22 Allergies Allergy/AdvReac Type Severity Reaction Status Date / Time No Known Allergies Allergy Verified 08/30/23 12:47 Review of Systems ROS Statement: Those systems with pertinent positive or pertinent negative responses have been documented in the HPI. ROS Other: All systems not noted in ROS Statement are negative. Constitutional: Denies: fever, chills, weakness Respiratory: Reports: cough, dyspnea. Denies: wheezes Cardiovascular: Reports: chest pain, orthopnea. Denies: palpitations, edema, syncope Gastrointestinal: Denies: abdominal pain, nausea, vomiting, diarrhea Genitourinary: Denies: dysuria, hematuria Musculoskeletal: Denies: back pain Skin: Denies: rash Neurological: Denies: headache, weakness, numbness Past Medical History Past Medical History: CVA/TIA, Diabetes Mellitus, Hypertension, Myocardial Infarction ([place]) Additional Past Medical History / Comment(s): Stroke in December of 2021 Last Myocardial Infarction Date:: 10/03/22 History of Any Multi-Drug Resistant Organisms: None Reported Past Surgical History: Orthopedic Surgery Additional Past Surgical History / Comment(s): Urethral surgery-unsure of date Past Anesthesia/Blood Transfusion Reactions: No Reported Reaction Date of Last Stent Placement:: 10/03/2022 Past Psychological History: No Psychological Hx Reported, Depression, PTSD Smoking Status: Former smoker Past Alcohol Use History: None Reported Past Drug Use History: None Reported - Past Family History Father Family Medical History: Hypertension General Exam Limitations: no limitations General appearance: alert, in distress Head exam: Present: atraumatic, normocephalic Eye exam: Present: normal appearance. Absent: scleral icterus, conjunctival injection ENT exam: Present: normal oropharynx Neck exam: Present: normal inspection Respiratory exam: Present: respiratory distress, rales, rhonchi, accessory muscle use. Absent: wheezes, stridor, chest wall tenderness Cardiovascular Exam: Present: tachycardia, systolic murmur. Absent: diastolic murmur, rubs, gallop GI/Abdominal exam: Present: soft. Absent: distended, tenderness, guarding, rebound, rigid, mass Extremities exam: Present: normal inspection, normal capillary refill. Absent: pedal edema, calf tenderness Back exam: Present: normal inspection. Absent: CVA tenderness (R), CVA tenderness (L) Neurological exam: Present: alert Skin exam: Present: warm, intact, diaphoretic, mottled. Absent: rash Course Vital Signs 08/30/23 08/30/23 08/30/23 01:01 01:11 01:12 Temperature 101.6 F H Pulse Rate 113 H 113 H Respiratory 32 H 36 H Rate Blood Pressure 182/96 154/70 O2 Sat by Pulse 90 L 98 Oximetry Fraction of 70 Inspired Oxygen (FIO2) 08/30/23 08/30/23 08/30/23 01:28 01:30 02:00 Temperature Pulse Rate 92 92 Respiratory 26 H 22 22 Rate Blood Pressure 110/57 105/52 O2 Sat by Pulse 98 95 Oximetry Fraction of Inspired Oxygen (FIO2) 08/30/23 08/30/23 08/30/23 02:30 06:54 08:00 Temperature 99.0 F Pulse Rate 83 71 70 Respiratory 20 18 20 Rate Blood Pressure 102/50 115/71 124/64 O2 Sat by Pulse 95 97 97 Oximetry Fraction of Inspired Oxygen (FIO2) Medical Decision Making - Medical Decision Making Patient is an 82-year-old man who arrives in severe respiratory distress. He is placed on BiPAP and he is given aliquots of IV nitroglycerin as well as the infusion. I monitored the blood pressure at the bedside while doing so. The patient then began to turn around. His blood pressure and heart rate improved and we were able to wean him from the BiPAP initially to nonrebreather mask, then to nasal cannula. I did discuss the patient's ECG with Dr. Clifford, and patient will be admitted Was pt. sent in by a medical professional or institution (, EFRA, MOBILE SECURITY ARCHITECT, urgent care, hospital, or snf...) When possible be specific @ -[No] Did you speak to anyone other than the patient for history (EMS, parent, family, police, friend...)? What history was obtained from this source @ -[EMS Did you review nursing and triage notes (agree or disagree)? Why? @ -[I reviewed and agree with nursing and triage notes] Were old charts reviewed (outside hosp., previous admission, EMS record, old EKG, old radiological studies, urgent care reports/EKG's, snf records)? Report findings @ -[No old charts were reviewed] Differential Diagnosis (chest pain, altered mental status, abdominal pain women, abdominal pain men, vaginal bleeding, weakness, fever, dyspnea, syncope, headache, dizziness, GI bleed, back pain, seizure, CVA, palpatations, mental health, musculoskeletal)? @ -[Differential Dyspnea: Coronary syndrome, arrhythmia, tamponade, asthma, COPD, pulmonary embolism, pneumonia, pneumothorax, pulmonary effusion, anaphylaxis, diabetic ketoacidosis, flailed chest, pulmonary contusion, diaphragmatic rupture, anemia, neuromuscular, this is not meant to be an all-inclusive list. EKG interpreted by me (3pts min.). @ -[As above] X-rays interpreted by me (1pt min.). @ -[I interpreted as above CT interpreted by me (1pt min.). @ -[None done] U/S interpreted by me (1pt. min.). @ -[None done] What testing was considered but not performed or refused? (CT, X-rays, U/S, labs)? Why? @ -[None] What meds were considered but not given or refused? Why? @ -[None] Did you discuss the management of the patient with other professionals (pro fessionals i.e. , EFRA, MOBILE SECURITY ARCHITECT, lab, RT, psych nurse, social service director, meat scrubber, teacher, navy airspace officer, telehealth case manager)? Give summary @ -[No] Was smoking cessation discussed for >3mins.? @ -[No] Was critical care preformed (if so, how long)? @ -[Yes, 40 minutes Were there social determinants of health that impacted care today? How? (Homelessness, low income, unemployed, alcoholism, drug addiction, transportation, low edu. Level, literacy, decrease access to med. care, custodial, rehab)? @ -[No] Was there de-escalation of care discussed even if they declined (Discuss DNR or withdrawal of care, Hospice)? DNR status @ -[No] What co-morbidities impacted this encounter? (DM, HTN, Smoking, COPD, CAD, Cancer, CVA, ARF, Chemo, Hep., AIDS, mental health diagnosis, sleep apnea, morbid obesity)? @ -[Hypertension, diabetes Was patient admitted / discharged? Hospital course, mention meds given and route, prescriptions, significant lab abnormalities, going to OR and other pertinent info. @ -[See above. Patient is an 82-year-old man presenting with severe respir atory distress. The patient does appear to be having hypertensive crisis with congestive heart failure. He did respond well to oxygen and IV nitroglycerin. The patient found to have new left bundle-branch block. Also found to have RSV infection. He'll be admitted to have further cardiology evaluation and treatment Undiagnosed new problem with uncertain prognosis? @ -[No] Drug Therapy requiring intensive monitoring for toxicity (Heparin, Nitro, Insulin, Cardizem)? @ -[IV nitroglycerin Were any procedures done? @ -[No] Diagnosis/symptom? @ -[Acute RSV infection Acute hypertensive urgency with congestive heart failure Acute, or Chronic, or Acute on Chronic? @ -[Acute Uncomplicated (without systemic symptoms) or Complicated (systemic symptoms)? @ -[Complicated Side effects of treatment? @ -[No] Exacerbation, Progression, or Severe Exacerbation? @ -[No] Poses a threat to life or bodily function? How? (Chest pain, [place], NC, pneumonia, PE, COPD, DKA, ARF, appy, cholecystitis, CVA, Diverticulitis, Homicidal, Suicidal, threat to staff... and all critical care pts) @ -[Yes - Lab Data Result diagrams: 09/07/23 06:37 09/07/23 06:37 Lab Results 08/30/23 08/30/23 08/30/23 Range/Units 01:10 01:10 01:10 WBC 13.0 H (3.8-10.6) k/uL RBC 4.42 (4.30-5.90) m/uL Hgb 12.7 L (13.0-17.5) gm/dL Hct 38.5 L (39.0-53.0) % MCV 87.1 (80.0-100.0) fL MCH 28.7 (25.0-35.0) pg MCHC 32.9 (31.0-37.0) g/dL RDW 14.1 (11.5-15.5) % Plt Count 267 (150-450) k/uL MPV 8.1 Neutrophils % 71 % Lymphocytes % 20 % Monocytes % 6 % Eosinophils % 2 % Basophils % 1 % Neutrophils # 9.2 H (1.3-7.7) k/uL Lymphocytes # 2.5 (1.0-4.8) k/uL Monocytes # 0.7 (0-1.0) k/uL Eosinophils # 0.2 (0-0.7) k/uL Basophils # 0.1 (0-0.2) k/uL PT 10.5 (10.0-12.5) sec INR 1.0 (<1.2) APTT 21.7 L (22.0-30.0) sec Sodium 136 L (137-145) mmol/L Potassium 4.9 (3.5-5.1) mmol/L Chloride 100 (98-107) mmol/L Carbon Dioxide 24 (22-30) mmol/L Anion Gap 12 mmol/L BUN 41 H (9-20) mg/dL Creatinine 1.70 H (0.66-1.25) mg/dL Est GFR (CKD-EPI)AfAm 43 (>60 ml/min/1.73 sqM) Est GFR (CKD-EPI)NonAf 37 (>60 ml/min/1.73 sqM) Glucose 210 H (74-99) mg/dL Calcium 8.7 (8.4-10.2) mg/dL Magnesium 2.1 (1.6-2.3) mg/dL Total Bilirubin 0.8 (0.2-1.3) mg/dL AST 31 (17-59) U/L ALT 22 (4-49) U/L Alkaline Phosphatase 174 H (38-126) U/L Troponin I (0.000-0.034) ng/mL NT-Pro-B Natriuret Pep pg/mL Total Protein 7.7 (6.3-8.2) g/dL Albumin 4.3 (3.5-5.0) g/dL Influenza Type A (PCR) (Not Detectd) Influenza Type B (PCR) (Not Detectd) RSV (PCR) (Not Detectd) SARS-CoV-2 (PCR) (Not Detectd) 08/30/23 08/30/23 08/30/23 Range/Units 01:10 01:10 01:35 WBC (3.8-10.6) k/uL RBC (4.30-5.90) m/uL Hgb (13.0-17.5) gm/dL Hct (39.0-53.0) % MCV (80.0-100.0) fL MCH (25.0-35.0) pg MCHC (31.0-37.0) g/dL RDW (11.5-15.5) % Plt Count (150-450) k/uL MPV Neutrophils % % Lymphocytes % % Monocytes % % Eosinophils % % Basophils % % Neutrophils # (1.3-7.7) k/uL Lymphocytes # (1.0-4.8) k/uL Monocytes # (0-1.0) k/uL Eosinophils # (0-0.7) k/uL Basophils # (0-0.2) k/uL PT (10.0-12.5) sec INR (<1.2) APTT (22.0-30.0) sec Sodium (137-145) mmol/L Potassium (3.5-5.1) mmol/L Chloride (98-107) mmol/L Carbon Dioxide (22-30) mmol/L Anion Gap mmol/L BUN (9-20) mg/dL Creatinine (0.66-1.25) mg/dL Est GFR (CKD-EPI)AfAm (>60 ml/min/1.73 sqM) Est GFR (CKD-EPI)NonAf (>60 ml/min/1.73 sqM) Glucose (74-99) mg/dL Calcium (8.4-10.2) mg/dL Magnesium (1.6-2.3) mg/dL Total Bilirubin (0.2-1.3) mg/dL AST (17-59) U/L ALT (4-49) U/L Alkaline Phosphatase (38-126) U/L Troponin I 0.013 (0.000-0.034) ng/mL NT-Pro-B Natriuret Pep 1470 pg/mL Total Protein (6.3-8.2) g/dL Albumin (3.5-5.0) g/dL Influenza Type A (PCR) Not Detected (Not Detectd) Influenza Type B (PCR) Not Detected (Not Detectd) RSV (PCR) Detected A (Not Detectd) SARS-CoV-2 (PCR) Not Detected (Not Detectd) - EKG Data -: EKG Interpreted by Sc EKG shows normal: sinus rhythm, axis (Left axis deviation), intervals (AZ interval prolonged at 244 ms, consistent with first-degree AV block. QRS d uration 157 ms, prolonged consistent with left bundle branch block.), QRS complexes (Left Bundle-branch block pattern) Rate: tachycardia (Rate 112 bpm) Critical Care Time Critical Care Time: Yes (40 minutes) Disposition Clinical Impression: RSV infection, Hypertensive emergency Disposition: ADMITTED IP TO THIS HOSP Condition: Critical Is patient prescribed a controlled substance at d/c from ED?: No
[2023-08-30] MEDS ORDERED: DEXTROSE 50% SYRINGE 50 ML IVP PRN ×2 (05:18)
--- NOTE | 2023-08-30 05:26 | P.HPIM ---
History of Present Illness H&P Date: 08/30/23 Chief Complaint: chest pain 82 year old male with DM , Diastolic CHF coming in with sudden onset chest pain, described it as severe, crushing across his chest 8/10 in severity , tried to adjust his bed and taken some nitro with no improvement , he then notified EMS and was brought in here, upon arrival he was not looking good, with elevated blood pressure , diaphoretic, EKG showed LBBB, which was reviewed by cardiology who recommended medical management at this time , and blood pressure control .. patient has been having sore throat , wheezing , and productive cough for the past 2 days , with low grade fever, and not feeling well. he was having dry heaves at home, and vomited upon arrival to the ED. he otherwise , denies any known sick contacts, denies any falls, denies any GI bleeding, or changes in his bowel or urinary habits, he was feeling fine up until couple days ago he deneis any recent travel or hospital stay , denies any history of blood clots denies tobacco smoking illicit drugs or alcohol he also reports bilateral nipple pain over the past 2 months, no discharge, no swelling, no skin change, no palpable masses review of systems Pertinent positives as noted in HPI. All other systems were reviewed and are negative on exam Constitutional: No acute distress, Eyes: Anicteric sclerae, moist conjunctiva, Pupils equal round reactive to light ENMT: NC/AT Oropharynx clear, no erythema, or exudates Neck: Supple, no masses, or JVD No carotid bruits No thyromegaly Lungs: Clear to auscultation Clear to percussion Normal respiratory effort, no accessory muscle use Cardiovascular: Heart regular in rate and rhythm, No murmurs, gallops, or rubs unilateral pitting edema of the left leg +2 Abdominal: Soft, mild distention Nontender, no guarding, rebound or rigidity Abdomen moving with respiration Normoactive bowel sounds No hepatomegaly, No splenomegaly No palpable mass No abdominal wall hernia noted Extremities: No digital cyanosis No clubbing Pedal pulses intact and symmetrical Radial pulses intact and symmetrical No calf tenderness Psychiatric: Alert and oriented to person, place and time Appropriate affect fair judgement Neuro Muscles Strength 5/5 in all 4 extremities Sensation to light touch grossly present throughout Cranial nerves II-XII grossly intact Lymphatics: no palpable cervical or supraclavicular lymph nodes Past Medical History Past Medical History: CVA/TIA, Diabetes Mellitus, Hypertension, Myocardial Infarction ([place]) Additional Past Medical History / Comment(s): Stroke in December of 2021 Last Myocardial Infarction Date:: 10/03/22 History of Any Multi-Drug Resistant Organisms: None Reported Past Surgical History: Orthopedic Surgery Additional Past Surgical History / Comment(s): Urethral surgery-unsure of date Past Anesthesia/Blood Transfusion Reactions: No Reported Reaction Date of Last Stent Placement:: 10/03/2022 Past Psychological History: No Psychological Hx Reported, Depression, PTSD Smoking Status: Former smoker Past Alcohol Use History: None Reported Past Drug Use History: None Reported - Past Family History Father Family Medical History: Hypertension Medications and Allergies Home Medications Medication Instructions Recorded Confirmed Type Aspirin [[place] Aspirin EC] 81 mg PO DAILY 10/03/22 11/05/22 History Atorvastatin Calcium [Lipitor] 80 mg PO HS 10/03/22 11/05/22 History Carboxymethylcellulose Sodium 1 drop BOTH EYES QID 10/03/22 11/05/22 History [Thera Tears] DULoxetine HCL [Cymbalta] 30 mg PO DAILY 10/03/22 11/05/22 History Erythromycin Ophth Oint (1 gm) 1 applic TOPICAL HS 10/03/22 11/05/22 History [Ilotycin Ophth Oint (1 gm)] Finasteride [Proscar] 5 mg PO DAILY 10/03/22 11/05/22 History Glimepiride [Amaryl] 1 mg PO DAILY 10/03/22 11/05/22 History Insulin Glargine,Hum.rec.anlog 15 units SQ DAILY 10/03/22 11/05/22 History [Insulin Glargine Solostar] Magnesium Oxide 400 mg PO BID 10/03/22 11/05/22 History Omeprazole [PriLOSEC] 20 mg PO DAILY 10/03/22 11/05/22 History Sennosides/Docusate Sodium [Senna 1 tab PO DAILY PRN 10/03/22 11/05/22 History Plus 8.6-50 mg Tablet] Tamsulosin HCl [Flomax] 0.8 mg PO W/SUPPER 10/03/22 11/05/22 History glipiZIDE [Glucotrol] 10 mg PO DAILY 10/03/22 11/05/22 History Clopidogrel [Plavix] 75 mg PO DAILY #90 tab 10/07/22 11/05/22 Rx Nitroglycerin Sl Tabs [Nitrostat] 0.4 mg SL Q5M PRN 11/05/22 11/05/22 History Furosemide [Lasix] 40 mg PO DAILY #30 tablet 11/08/22 Rx carvediloL [Coreg] 6.25 mg PO BID-W/MEALS #60 tab 11/08/22 Rx Allergies Allergy/AdvReac Type Severity Reaction Status Date / Time No Known Allergies Allergy Verified 11/05/22 11:24 Physical Exam Vitals: Vital Signs Temp Pulse Resp BP Pulse Ox FiO2 08/30/23 02:30 83 20 102/50 95 08/30/23 02:00 92 22 105/52 95 08/30/23 01:30 92 22 110/57 98 08/30/23 01:28 26 H 08/30/23 01:12 70 08/30/23 01:11 113 H 36 H 154/70 98 08/30/23 01:01 101.6 F H 113 H 32 H 182/96 90 L Intake and Output 08/29/23 08/29/23 08/30/23 14:59 22:59 06:59 Intake Total 32.5 Balance 32.5 Intake: Intake, IV Titration 32.5 Amount Nitroglycerin-D5w Pmx 50 32.5 mg In Dextrose/Water 1 250ml.bag @ 20 MCG/MIN 6 mls/hr IV .Q24H ONE Rx#: [id number] Other: Weight 95.254 kg Results CBC & Chem 7: 08/30/23 01:10 08/30/23 01:10 Labs: Abnormal Lab Results - Last 24 Hours (Table) 08/30/23 08/30/23 08/30/23 Range/Units 01:10 01:10 01:10 WBC 13.0 H (3.8-10.6) k/uL Hgb 12.7 L (13.0-17.5) gm/dL Hct 38.5 L (39.0-53.0) % Neutrophils # 9.2 H (1.3-7.7) k/uL APTT 21.7 L (22.0-30.0) sec Sodium 136 L (137-145) mmol/L BUN 41 H (9-20) mg/dL Creatinine 1.70 H (0.66-1.25) mg/dL Glucose 210 H (74-99) mg/dL Alkaline Phosphatase 174 H (38-126) U/L RSV (PCR) (Not Detectd) 08/30/23 Range/Units 01:35 WBC (3.8-10.6) k/uL Hgb (13.0-17.5) gm/dL Hct (39.0-53.0) % Neutrophils # (1.3-7.7) k/uL APTT (22.0-30.0) sec Sodium (137-145) mmol/L BUN (9-20) mg/dL Creatinine (0.66-1.25) mg/dL Glucose (74-99) mg/dL Alkaline Phosphatase (38-126) U/L RSV (PCR) Detected A (Not Detectd) Assessment and Plan Assessment: 82 year old male with DM , Diastolic CHF , CAD, coming in with sudden onset chest pain , and 2 days history of URI, he was found to have elevated blood pressure and new LBBB upon arrival on his EKG . case discussed with cardiology who recommended medical management , I discusse dthe case with ED doc and I accepted the admission for RSV pneumonia , and atypical chest pain to rule out ACS with anticipated lenght of stay < 2 midnights atypical chest pain cardiology consult EKG showed New LBBB, cardiology evaluated and recommended medical management Plavix, ASA, statin home meds site monitor trops negative , continue to trend nitro PRN s/p nitro gtt hypertension , uncontrolled continue coreg home medication blood pressure better controlled now patient received some nitro gtt in the ED upon arrival due to chest pain and high blood pressure RSV laryngeobronchitis symptomatic control zofran for nausea and vomiting 4 mg IVP q 8hrs PRN cepacole lozenges PRN supplemental oxygen as needed droplet precautions chronic conditions diastolic chf , compensated continue coreg CKD Cr 1.7 avoid nephrotoxic meds monitor renal function and urine output DM insulin sliding scale BPH continue finasteride and flomax home meds check D dimer , and venous doppler of the left leg FUll code DVT PPX heparin sc tid protonix 40 mg po daily
[2023-08-30 07:22] LABS: Glucose,Whole Blood 183 mg/dL (70-110)
[2023-08-30] MEDS ORDERED: HEPARIN SODIUM,PORCINE 5,000 UNIT/ML 1 ML VIAL SQ SCH (08:00)
[2023-08-30] MEDS: carvediloL 6.25 MG TAB PO SCH ×2 (08:17→17:31)
[2023-08-30] MEDS ORDERED: SENNOSIDES-DOCUSATE SODIUM 1 EACH TAB PO PRN (09:00)
[2023-08-30] MEDS: CLOPIDOGREL 75 MG TAB PO SCH (09:27)
[2023-08-30] MEDS: ASPIRIN 81 MG PO SCH (09:27)
[2023-08-30] MEDS: FINASTERIDE 5 MG TAB PO SCH (09:27)
[2023-08-30] MEDS: PANTOPRAZOLE 40 MG TABLET PO SCH (09:27)
--- NOTE | 2023-08-30 10:58 | US ---
EXAMINATION TYPE: US venous doppler duplex LE LT DATE OF EXAM: 08/30/2023 7:19 AM COMPARISON: NONE CLINICAL INDICATION: Male, 82 years old with history of left leg edema rue out DVT; left leg edema SIDE PERFORMED: left TECHNIQUE: The lower extremity deep venous system is examined utilizing real time linear array sonog vanessa with graded compression, doppler sonography and color-flow sonography. VESSELS IMAGED: Common Femoral Vein Deep Femoral Vein Greater Saphenous Vein * Femoral Vein Popliteal Vein Small Saphenous Vein * Proximal Calf Veins (* superficial vessels) Left Leg: No evidence of DVT IMPRESSION: Grayscale, color doppler, spectral doppler imaging performed of the deep veins of the lo wer extremities. There is normal flow, compressibility, vascular waveforms.
[2023-08-30] MEDS: INSULIN ASPART (NovoLOG) 100 UNIT/ML VIAL SQ SCH ×4 (11:23→20:20)
[2023-08-30 11:57] LABS: Glucose,Whole Blood 161 mg/dL (70-110)
[2023-08-30] MEDS ORDERED: HEPARIN SODIUM 1,000 UN/ML (10ML VL) IV ONE (11:58)
[2023-08-30] MEDS ORDERED: HEPARIN SODIUM 1,000 UN/ML (10ML VL) IV PRN (11:58)
[2023-08-30] MEDS: HEPARIN SOD,PORK IN 0.45% NACL 25,000 UNIT in 0.45% NACL 1 250ML.BAG IV SCH (12:46)
[2023-08-30 13:07] LABS: Basophils % (A) 1 %; Eosinophils # (A) 0.1 k/uL (0-0.7); Eosinophils % (A) 1 %; HCT 31.3 % (39.0-53.0); HGB 10.7 gm/dL (13.0-17.5); Lymphocytes # (A) 1.1 k/uL (1.0-4.8); Lymphocytes % (A) 12 %; MCH 29.4 pg (25.0-35.0); MCHC 34.2 g/dL (31.0-37.0); MCV 86.1 fL (80.0-100.0); Mean Platelet Volume 8.4; Monocytes # (A) 0.6 k/uL (0-1.0); Monocytes % (A) 7 %; Neutrophils # (A) 6.8 k/uL (1.3-7.7); Neutrophils % (A) 77 %; Platelet Count 199 k/uL (150-450); RBC 3.63 m/uL (4.30-5.90); RDW 14.1 % (11.5-15.5); WBC 8.8 k/uL (3.8-10.6)
[2023-08-30 13:22] LABS: Partial Thromboplastin Time 26.7 sec (22.0-30.0); Prothrombin Time 11.2 sec (10.0-12.5)
[2023-08-30] MEDS ORDERED: ALPRAZolam 0.5 MG TAB PO PRN (13:23)
[2023-08-30] MEDS ORDERED: ALPRAZolam 0.25 MG TAB PO PRN (13:23)
--- NOTE | 2023-08-30 15:32 | P.CRDCN ---
History of Present Illness Consult date: 08/30/23 Requesting physician: Clemencia Temple Reason for Consult (text): Chest pain Chief complaint: Shortness of breath and chest pain History of present illness: This Is a pleasant 82-year-old gentleman who follows in the office with Dr. Nelson. He has a history of STEMI in September at which time he underwent stenting of the LAD. He subsequently stopped taking his medications and he returned again with evidence of an anterior wall [place] and underwent angioplasty and aspiration thrombectomy by Dr. Davis. Subsequently had CVA. He been feeling fairly well since around November of this year. Over the last few days he's been feeling significantly more short of breath. He decided to call EMS when he began developing chest discomfort. Upon presentation he was noted to be in sinus rhythm with left bundle branch block which has not been diagnosed in the past. He is positive for RSV. Chest x-ray showed bibasilar opacifications. Initially troponin came back normal at 0.013 with subsequent troponin of 4.65. At the time of my examination the patient is chest pain-free. His breathing is better. His creatinine is 1.7 which is up compared to his baseline. He follows regularly with Dr. Barker. Myoglobin 12.7. He complains of left lower extremity edema and ultrasound was negative for DVT. His vital signs up and stable. At the time of my examination he is resting comfortably in bed. He denies complaints of chest discomfort. He's had no palpitations, dizziness or lightheadedness. He denies any orthopnea or PND. Continues to complain of shortness of breath but improved. Past Medical History Past Medical History: CVA/TIA, Diabetes Mellitus, Hypertension, Myocardial Infarction ([place]) Additional Past Medical History / Comment(s): Stroke in December of 2021 Last Myocardial Infarction Date:: 10/03/22 History of Any Multi-Drug Resistant Organisms: None Reported Past Surgical History: Orthopedic Surgery Additional Past Surgical History / Comment(s): Urethral surgery-unsure of date Past Anesthesia/Blood Transfusion Reactions: No Reported Reaction Date of Last Stent Placement:: 10/03/2022 Past Psychological History: No Psychological Hx Reported, Depression, PTSD Smoking Status: Former smoker Past Alcohol Use History: None Reported Past Drug Use History: None Reported - Past Family History Father Family Medical History: Hypertension Medications and Allergies Home Medications Medication Instructions Recorded Confirmed Type Aspirin [[place] Aspirin EC] 81 mg PO DAILY 10/03/22 08/30/23 History Atorvastatin Calcium [Lipitor] 80 mg PO HS 10/03/22 08/30/23 History Carboxymethylcellulose Sodium 1 drop BOTH EYES QID 10/03/22 08/30/23 History [Thera Tears] Finasteride [Proscar] 5 mg PO DAILY 10/03/22 08/30/23 History Insulin Glargine,Hum.rec.anlog 35 units SQ DAILY 10/03/22 08/30/23 History [Insulin Glargine Solostar] Magnesium Oxide 400 mg PO BID 10/03/22 08/30/23 History Omeprazole [PriLOSEC] 20 mg PO DAILY 10/03/22 08/30/23 History Sennosides/Docusate Sodium [Senna 1 tab PO DAILY PRN 10/03/22 08/30/23 History Plus 8.6-50 mg Tablet] Tamsulosin HCl [Flomax] 0.4 mg PO BID 10/03/22 08/30/23 History glipiZIDE [Glucotrol] 20 mg PO AC-BID 10/03/22 08/30/23 History Clopidogrel [Plavix] 75 mg PO DAILY #90 tab 10/07/22 08/30/23 Rx Nitroglycerin Sl Tabs [Nitrostat] 0.4 mg SL Q5M PRN 11/05/22 08/30/23 History Furosemide [Lasix] 40 mg PO DAILY #30 tablet 11/08/22 08/30/23 Rx carvediloL [Coreg] 6.25 mg PO BID-W/MEALS #60 tab 11/08/22 08/30/23 Rx DULoxetine HCL [Cymbalta] 60 mg PO DAILY 08/30/23 08/30/23 History Empagliflozin [Jardiance] 25 mg PO DAILY 08/30/23 08/30/23 History Isosorbide Mononitrate ER [Imdur] 30 mg PO DAILY 08/30/23 08/30/23 History Levothyroxine Sodium [Synthroid] 25 mcg PO DAILY 08/30/23 08/30/23 History Mv-Min/Folic/K1/Lycopen/Lutein 1 tab PO DAILY 08/30/23 08/30/23 History [Centrum Silver Men Tablet] lisinopriL [Zestril] 10 mg PO DAILY 08/30/23 08/30/23 History Allergies Allergy/AdvReac Type Severity Reaction Status Date / Time No Known Allergies Allergy Verified 08/30/23 12:47 Physical Exam Vitals: Vital Signs Temp Pulse Pulse Resp BP BP Pulse Ox 08/30/23 09:18 98.6 F 71 18 123/73 96 08/30/23 08:00 70 20 124/64 97 08/30/23 06:54 99.0 F 71 18 115/71 97 08/30/23 02:30 83 20 102/50 95 08/30/23 02:00 92 22 105/52 95 08/30/23 01:30 92 22 110/57 98 08/30/23 01:28 26 H 08/30/23 01:12 08/30/23 01:11 113 H 36 H 154/70 98 08/30/23 01:01 101.6 F H 113 H 32 H 182/96 90 L FiO2 08/30/23 09:18 08/30/23 08:00 08/30/23 06:54 08/30/23 02:30 08/30/23 02:00 08/30/23 01:30 08/30/23 01:28 08/30/23 01:12 70 08/30/23 01:11 08/30/23 01:01 Intake and Output 08/30/23 08/30/23 08/30/23 06:59 14:59 22:59 Intake Total 32.5 360 Balance 32.5 360 Intake: Intake, IV Titration 32.5 Amount Nitroglycerin-D5w Pmx 50 32.5 mg In Dextrose/Water 1 250ml.bag @ 20 MCG/MIN 6 mls/hr IV .Q24H [facility] Rx#: [id number] Oral 360 Other: Weight 95.254 kg PHYSICAL EXAMINATION: This is a 82-year-old male in no apparent distress at the time of my examination. VITAL SIGNS: Reviewed HEENT: Head is atraumatic, normocephalic. Pupils are equal, round. Sclerae anicteric. Conjunctivae are clear. Mucous membranes of the mouth are moist. Neck is supple. [There is no elevated jugular venous pressure]. No carotid bruit is heard. CHEST EXAMINATION:[ Lungs reveal expiratory wheezing throughout.. Respirations even and nonlabored.] HEART EXAMINATION: [ Heart regular, positive S1 and S2. No S3. No S4. Systolic murmur. ] ABDOMEN: Soft, nontender. Bowel sounds are heard. No organomegaly noted. EXTREMITIES:[ 2+ peripheral pulses with evidence of mild left lower extremity peripheral edema and no calf tenderness noted]. NEUROLOGIC EXAMINATION: Patient is awake, alert and oriented x3. Results 08/30/23 12:38 08/30/23 01:10 Cardiac Enzymes 08/30/23 08/30/23 08/30/23 Range/Units 01:10 01:10 08:55 AST 31 (17-59) U/L Troponin I 0.013 4.650 H* (0.000-0.034) ng/mL 08/30/23 Range/Units 12:38 AST (17-59) U/L Troponin I 5.360 H* (0.000-0.034) ng/mL Coagulation 08/30/23 08/30/23 Range/Units 01:10 12:38 PT 10.5 11.2 (10.0-12.5) sec APTT 21.7 L 26.7 (22.0-30.0) sec CBC 08/30/23 08/30/23 Range/Units 01:10 12:38 WBC 13.0 H 8.8 (3.8-10.6) k/uL RBC 4.42 3.63 L (4.30-5.90) m/uL Hgb 12.7 L 10.7 L (13.0-17.5) gm/dL Hct 38.5 L 31.3 L (39.0-53.0) % Plt Count 267 199 (150-450) k/uL Comprehensive Metabolic Panel 08/30/23 Range/Units 01:10 Sodium 136 L (137-145) mmol/L Potassium 4.9 (3.5-5.1) mmol/L Chloride 100 (98-107) mmol/L Carbon Dioxide 24 (22-30) mmol/L BUN 41 H (9-20) mg/dL Creatinine 1.70 H (0.66-1.25) mg/dL Glucose 210 H (74-99) mg/dL Calcium 8.7 (8.4-10.2) mg/dL AST 31 (17-59) U/L ALT 22 (4-49) U/L Alkaline Phosphatase 174 H (38-126) U/L Total Protein 7.7 (6.3-8.2) g/dL Albumin 4.3 (3.5-5.0) g/dL Current Medications Generic Name Dose Route Start Last Admin Trade Name Freq PRN Reason Stop Dose Admin Alprazolam 0.25 mg 08/30/23 13:23 Alprazolam 0.25 Mg Tab PO Q6HR PRN Mild Anxiety Alprazolam 0.5 mg 08/30/23 13:23 Alprazolam 0.5 Mg Tab PO Q6HR PRN Moderate Anxiety Aspirin 81 mg 08/30/23 09:00 08/30/23 09:27 Aspirin 81 Mg PO 81 mg DAILY YASEMIN Administration Aspirin 325 mg 08/31/23 06:00 Aspirin 325 Mg Tab PO 08/31/23 06:01 ONCE ONE Atorvastatin Calcium 80 mg 08/30/23 21:00 Atorvastatin 80 Mg Tab PO HS [facility] Atorvastatin Calcium 80 mg 08/31/23 06:00 Atorvastatin 80 Mg Tab PO 08/31/23 06:01 ONCE ONE Carvedilol 6.25 mg 08/30/23 07:30 08/30/23 08:17 Carvedilol 6.25 Mg Tab PO 6.25 mg BID-W/MEALS YASEMIN Administration Clopidogrel Bisulfate 75 mg 08/30/23 09:00 08/30/23 09:27 Clopidogrel 75 Mg Tab PO 75 mg DAILY YASEMIN Administration Dextrose/Water 50 ml 08/30/23 05:18 Dextrose 50% Syringe 50 Ml IVP PER PROTOCOL PRN Hypoglycemia Protocol Dextrose/Water 25 ml 08/30/23 05:18 Dextrose 50% Syringe 50 Ml IVP PER PROTOCOL PRN Hypoglycemia Protocol Finasteride 5 mg 08/30/23 09:00 08/30/23 09:27 Finasteride 5 Mg Tab PO 5 mg DAILY YASEMIN Administration Heparin Sodium (Porcine) 0 unit 08/30/23 11:58 Heparin Sodium 1,000 Un/Ml (10ml Vl) IV PER PROTOCOL PRN Low PTT Protocol Heparin Sodium/Sodium Chloride 250 mls @ 10 mls/hr 08/30/23 12:00 08/30/23 12:46 25,000 unit/ Sodium Chloride IV 10.498 units/kg/hr .Q24H YASEMIN 10 mls/hr Administration Protocol 10.498 UNITS/KG/HR Heparin Sodium (Porcine) 10, 1,001 mls @ 999 mls/hr 08/31/23 07:00 000 unit/ Sodium Chloride IRRIGATION 08/31/23 23:00 ONCE PRN INTRA-OP Heparin Sodium (Porcine) 2,500 250.5 mls @ 250 mls/hr 08/31/23 07:00 unit/ Sodium Chloride IRRIGATION 08/31/23 23:00 ONCE PRN INTRA-OP Insulin Aspart 0 unit 08/30/23 07:30 08/30/23 13:32 Insulin Aspart (Novolog) 100 Unit/Ml Vial SQ 2 unit ACHS YASEMIN Administration Protocol Nitroglycerin 0.4 mg 08/30/23 01:04 Nitroglycerin Sl Tabs 0.4 Mg Tab SUBLINGUAL Q5M PRN Chest Pain Nitroglycerin 0.4 mg 08/30/23 13:23 Nitroglycerin Sl Tabs 0.4 Mg Tab SUBLINGUAL Q5M PRN Chest Pain Pantoprazole Sodium 40 mg 08/30/23 09:00 08/30/23 09:27 Pantoprazole 40 Mg Tablet PO 40 mg DAILY YASEMIN Administration Senna/Docusate Sodium 1 each 08/30/23 09:00 Sennosides-Docusate Sodium 1 Each Tab PO DAILY PRN Constipation Tamsulosin HCl 0.8 mg 08/30/23 17:30 Tamsulosin 0.4 Mg Cap.Er.24h PO W/SUPPER YASEMIN Intake and Output 08/30/23 08/30/23 08/30/23 06:59 14:59 22:59 Intake Total 32.5 360 Balance 32.5 360 Intake: Intake, IV Titration 32.5 Amount Nitroglycerin-D5w Pmx 50 32.5 mg In Dextrose/Water 1 250ml.bag @ 20 MCG/MIN 6 mls/hr IV .Q24H [facility] Rx#: [id number] Oral 360 Other: Weight 95.254 kg 08/30/23 12:38 08/30/23 01:10 Assessment and Plan Assessment: #1 shortness of breath with acute onset chest pain, troponin 4.65, new onset left bundle branch block, patient currently chest pain-free #2 CAD with prior stenting of the LAD #3 ischemic cardiomyopathy #4 RSV #5 prior CVA Plan: From cardiology's perspective agree with initiation of heparin as ordered by primary. We will obtain a 2-D echo with Doppler study to assess cardiac structure and function. Continue to trend troponins. We will keep the patient nothing by mouth after midnight for possibility of cardiac catheterization to be done tomorrow. [employer] note has been reviewed, I agree with a documented findings and plan of care. Patient was seen and examined.
[2023-08-30 16:37] LABS: Glucose,Whole Blood 144 mg/dL (70-110)
[2023-08-30] MEDS: TAMSULOSIN 0.4 MG CAP.ER.24H PO SCH (17:31)
[2023-08-30 20:06] LABS: Glucose,Whole Blood 122 mg/dL (70-110)
[2023-08-30] MEDS: ATORVASTATIN 80 MG TAB PO SCH (20:39)
[2023-08-30] MEDS ORDERED: guaiFENesin 600 MG TABLET.ER PO ONE (21:41)
[2023-08-31 02:57] LABS: Basophils # (A) 0.1 k/uL (0-0.2); Basophils % (A) 1 %; Eosinophils # (A) 0.1 k/uL (0-0.7); Eosinophils % (A) 1 %; HCT 31.8 % (39.0-53.0); HGB 10.7 gm/dL (13.0-17.5); Lymphocytes # (A) 1.1 k/uL (1.0-4.8); Lymphocytes % (A) 12 %; MCHC 33.7 g/dL (31.0-37.0); Mean Platelet Volume 8.1; Monocytes # (A) 0.7 k/uL (0-1.0); Monocytes % (A) 7 %; Neutrophils # (A) 7.4 k/uL (1.3-7.7); Neutrophils % (A) 78 %; Platelet Count 181 k/uL (150-450); RBC 3.69 m/uL (4.30-5.90); RDW 13.9 % (11.5-15.5); WBC 9.5 k/uL (3.8-10.6)
[2023-08-31 02:58] LABS: Basophils # (A) 0.1 k/uL (0-0.2); Basophils % (A) 1 %; Eosinophils # (A) 0.1 k/uL (0-0.7); Eosinophils % (A) 1 %; HCT 31.3 % (39.0-53.0); HGB 10.4 gm/dL (13.0-17.5); Lymphocytes # (A) 1.1 k/uL (1.0-4.8); Lymphocytes % (A) 11 %; MCH 28.6 pg (25.0-35.0); MCHC 33.1 g/dL (31.0-37.0); MCV 86.1 fL (80.0-100.0); Mean Platelet Volume 8.3; Monocytes # (A) 0.7 k/uL (0-1.0); Monocytes % (A) 7 %; Neutrophils # (A) 7.3 k/uL (1.3-7.7); Neutrophils % (A) 78 %; Platelet Count 196 k/uL (150-450); RBC 3.64 m/uL (4.30-5.90); WBC 9.4 k/uL (3.8-10.6)
[2023-08-31 03:15] LABS: Partial Thromboplastin Time 48.7 sec (22.0-30.0); Prothrombin Time 11.3 sec (10.0-12.5)
[2023-08-31 04:05] LABS: African American GFR (CKD) 36 (>60 ml/min/1.73 sqM); Anion Gap 11 mmol/L; Blood Urea Nitrogen 52 mg/dL (9-20); Calcium 8.4 mg/dL (8.4-10.2); Carbon Dioxide 23 mmol/L (22-30); Chloride 98 mmol/L (98-107); Glucose 145 mg/dL (74-99); Magnesium 2.2 mg/dL (1.6-2.3); Non-African American GFR(CKD) 32 (>60 ml/min/1.73 sqM); Potassium 4.9 mmol/L (3.5-5.1); Sodium 132 mmol/L (137-145)
[2023-08-31] MEDS: IPRATROPIUM-ALBUTEROL 3 ML NEB INHALATION PRN ×2 (05:27→20:23)
--- NOTE | 2023-08-31 05:46 | XR ---
EXAM: XR Chest, 1 View CLINICAL HISTORY: Hypoxia TECHNIQUE: Frontal view of the chest. COMPARISON: 08/30/2023. FINDINGS: Heart is enlarged. Hypoventilation. Unchanged bibasilar atelectasis versus infiltrates. No pleural effusion or pneumothorax. Bones are unchanged. IMPRESSION: No significant change.
[2023-08-31] MEDS ORDERED: ATORVASTATIN 80 MG TAB PO ONE (06:00)
[2023-08-31] MEDS ORDERED: ASPIRIN 325 MG TAB PO ONE (06:00)
[2023-08-31 06:10] LABS: Glucose,Whole Blood 171 mg/dL (70-110)
[2023-08-31] MEDS: carvediloL 6.25 MG TAB PO SCH ×2 (06:22→16:39)
[2023-08-31] MEDS: FINASTERIDE 5 MG TAB PO SCH (06:22)
[2023-08-31] MEDS: CLOPIDOGREL 75 MG TAB PO SCH (06:22)
[2023-08-31] MEDS: PANTOPRAZOLE 40 MG TABLET PO SCH (06:22)
[2023-08-31] MEDS ORDERED: HEPARIN SODIUM,PORCINE 10,000 UNIT in SODIUM CHLORIDE 0.9% 1,000 ML IRRIGATION PRN (07:00)
[2023-08-31] MEDS ORDERED: HEPARIN SODIUM,PORCINE (1 ML) 2,500 UNIT in SODIUM CHLORIDE 0.9% 250 ML IRRIGATION PRN (07:00)
[2023-08-31] MEDS: INSULIN ASPART (NovoLOG) 100 UNIT/ML VIAL SQ SCH ×5 (07:32→20:54)
[2023-08-31] MEDS: ASPIRIN 81 MG PO SCH (08:19)
[2023-08-31] MEDS: IPRATROPIUM-ALBUTEROL 3 ML NEB INHALATION SCH ×4 (08:43→19:39)
[2023-08-31] MEDS: NITROGLYCERIN OINT 1 INCH/GM PACKET TOPICAL SCH ×3 (08:49→19:55)
[2023-08-31 09:14] LABS: Chol/HDL Ratio 3.39 Ratio; LDL Cholesterol,Calculated 47.7 mg/dL (0.0-131.0)
[2023-08-31 12:09] LABS: HCT 31.1 % (39.0-53.0); MCH 28.2 pg (25.0-35.0); MCHC 32.2 g/dL (31.0-37.0); MCV 87.6 fL (80.0-100.0); Mean Platelet Volume 8.3; Platelet Count 174 k/uL (150-450); RBC 3.55 m/uL (4.30-5.90); RDW 14.1 % (11.5-15.5); WBC 8.4 k/uL (3.8-10.6)
[2023-08-31 12:17] LABS: Glucose,Whole Blood 255 mg/dL (70-110)
--- NOTE | 2023-08-31 13:16 | P.PN ---
Subjective Progress Note Date: 08/31/23 The patient is an 82-year-old male with a PMH of type II DM, hypertension, hyperlipidemia who had presented to the emergency room with complaints of chest pain. In the ED, patient underwent extensive evaluation: Vital signs Tmax 101.6F, HR 113, RR 32, BP 182/96, 90% on 15L Non rebreather. CBC WBC 13, Hg 12.7. D-Dimer 2.13. APTT 21.7. CMP Na 136, BUN 41, Cr 1.7, glu 210, alk phos 174. Troponin 0.013. RSV + CXR bibasilar PNA Repeat troponin 4.65, 5.36. EKG showed a new LBBB. Started on Heparin drip and Cardiology consulted. Initially, plans for cardiac cath 08/31. 08/31 Patient was seen and examined. He reports a cough. No more chest pain. CBC Hg 10. APTT 48.7. BMP Na 132, BUN 52, Cr 1.96, glu 145. A1c 8.4. Lipid panel HDL 28, LDL 47.7, T. Chol 95. CXR done today shows bibasilar infiltrates. General: non toxic, no distress, appears at stated age Derm: warm, dry Head: atraumatic, normocephalic, symmetric Eyes: EOMI, no lid lag, anicteric sclera Cardiovascular: S1S2 reg, no murmur Lungs: Clear to auscultation bilaterally , no accessory muscle use Ext: no gross muscle atrophy, no edema, no contractures Neuro: no focal neuro deficits Psych: Alert, oriented, appropriate affect Based on my assessment of this patient, this patient meets a high complexity level of care. Patient has an acute diagnosis of NSTEMI that poses a threat to life or bodily function. NSTEMI: ASA 81 mg PO QD. Plavix 75 mg PO QD. Coreg 6.25 mg PO BID. Lipitor 80 mg PO QHS. Nitro topical. Heparin drip at 7.35 units/kg/hr. Echo pending. Telemetry monitoring. Cardiology on board. Plans for cardiac cath. RSV laryngeobronchitis: Symptomatic management. Elevated D-Dimer: No DVT. ZOEY on CKD: Monitor. Hold Lisinopril. DM with hyperglycemia: ISS. Accuchecks ACHS. Hypoglycemic precautions. Normocytic anemia: Stable. 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 No active signs of bleeding. Chronic conditions: Hypertension, history of CVA, PTSD/depression CODE STATUS: FULL CODE DVT Prophylaxis: Heparin drip. GI Prophylaxis: Protonix PO. Designated medical POA if patient is not able to make medical decisions for themselves: I have reviewed the following consultant internship notes: Cardiology note. I have reviewed the results of the following tests: CBC. Coag panel. BMP. I have ordered the following tests: CBC, BMP. I have discussed the care of this patient with the following independent historian: I have independently interpreted the following test below: CXR as above. I have discussed the management of this patient with the following physician: This patient has a high risk of morbidity due to the following reasons: Vancomycin requires monitoring for toxicity and renal monitoring. Objective - Vital Signs Vital signs: Vital Signs Temp 97.2 F L 08/31/23 08:43 Pulse 72 08/31/23 12:04 Resp 19 08/31/23 10:08 BP 121/59 08/31/23 08:43 Pulse Ox 98 08/31/23 08:43 FiO2 70 08/30/23 01:12 Intake & Output 08/30/23 08/31/23 08/31/23 18:59 06:59 18:59 Intake Total 600 133.250 225 Output Total 650 300 Balance 600 -516.750 -75 Weight 95.254 kg Intake: Intake, IV Titration 133.250 Amount Heparin Sod,Pork in 0.45% 133.250 NaCl 25,000 unit In 0.45 % NaCl 1 250ml.bag @ 10. 498 UNITS/KG/HR 10 mls/hr IV .Q24H [facility] Rx#: [id number] Oral 600 225 Output: Urine 650 300 Other: # Voids 1 3 - Labs CBC & Chem 7: 08/31/23 11:54 08/31/23 02:39 Labs: Abnormal Lab Results - Last 24 Hours (Table) 08/30/23 08/30/23 08/30/23 Range/Units 12:38 16:14 17:40 RBC (4.30-5.90) m/uL Hgb (13.0-17.5) gm/dL Hct (39.0-53.0) % APTT 106.9 H* (22.0-30.0) sec Sodium (137-145) mmol/L BUN (9-20) mg/dL Creatinine (0.66-1.25) mg/dL Glucose (74-99) mg/dL POC Glucose (mg/dL) 144 H (70-110) mg/dL Hemoglobin A1c (<=6.0) % Troponin I 5.360 H* (0.000-0.034) ng/mL HDL Cholesterol (40.00-60.00) mg/dL 08/30/23 08/31/23 08/31/23 Range/Units 20:04 02:39 02:39 RBC (4.30-5.90) m/uL Hgb (13.0-17.5) gm/dL Hct (39.0-53.0) % APTT (22.0-30.0) sec Sodium 132 L (137-145) mmol/L BUN 52 H (9-20) mg/dL Creatinine 1.96 H (0.66-1.25) mg/dL Glucose 145 H (74-99) mg/dL POC Glucose (mg/dL) 122 H (70-110) mg/dL Hemoglobin A1c 8.4 H (<=6.0) % Troponin I (0.000-0.034) ng/mL HDL Cholesterol 28.00 L (40.00-60.00) mg/dL 08/31/23 08/31/23 08/31/23 Range/Units 02:39 02:39 02:39 RBC 3.69 L 3.64 L (4.30-5.90) m/uL Hgb 10.7 L 10.4 L (13.0-17.5) gm/dL Hct 31.8 L 31.3 L (39.0-53.0) % APTT 48.7 H (22.0-30.0) sec Sodium (137-145) mmol/L BUN (9-20) mg/dL Creatinine (0.66-1.25) mg/dL Glucose (74-99) mg/dL POC Glucose (mg/dL) (70-110) mg/dL Hemoglobin A1c (<=6.0) % Troponin I (0.000-0.034) ng/mL HDL Cholesterol (40.00-60.00) mg/dL 08/31/23 08/31/23 08/31/23 Range/Units 06:09 11:54 12:15 RBC 3.55 L (4.30-5.90) m/uL Hgb 10.0 L (13.0-17.5) gm/dL Hct 31.1 L (39.0-53.0) % APTT (22.0-30.0) sec Sodium (137-145) mmol/L BUN (9-20) mg/dL Creatinine (0.66-1.25) mg/dL Glucose (74-99) mg/dL POC Glucose (mg/dL) 171 H 255 H (70-110) mg/dL Hemoglobin A1c (<=6.0) % Troponin I (0.000-0.034) ng/mL HDL Cholesterol (40.00-60.00) mg/dL
--- NOTE | 2023-08-31 14:11 | P.PN ---
Subjective HISTORY OF PRESENT ILLNESS: This Is a pleasant 82-year-old gentleman who follows in the office with Dr. Nelson. He has a history of STEMI in September at which time he underwent stenting of the LAD. He subsequently stopped taking his medications and he returned again with evidence of an anterior wall [place] and underwent angioplasty and aspiration thrombectomy by Dr. Davis. Subsequently had CVA. He been feeling fairly well since around November of this year. Over the last few days he's been feeling significantly more short of breath. He decided to call EMS when he began developing chest discomfort. Upon presentation he was noted to be in sinus rhythm with left bundle branch block which has not been diagnosed in the past. He is positive for RSV. Chest x-ray showed bibasilar opacifications. Initially troponin came back normal at 0.013 with subsequent troponin of 4.65. At the time of my examination the patient is chest pain-free. His breathing is better. His creatinine is 1.7 which is up compared to his baseline. He follows regularly with Dr. Barker. Myoglobin 12.7. He complains of left lower extremity edema and ultrasound was negative for DVT. His vital signs up and stable. At the time of my examination he is resting comfortably in bed. He denies complaints of chest discomfort. He's had no palpitations, dizziness or lightheadedness. He denies any orthopnea or PND. Continues to complain of checo rtness of breath but improved. 08/31/2023 Patient examined this morning at the bedside. Patient currently denies chest pain or pressure. He reports shortness of breath. Patient has required increased oxygen overnight and is currently on 3 L nasal cannula. Patient's creatinine declined today to 1.90. He was initially scheduled for cardiac catheterization but this has been canceled and will be rescheduled when patient is medically stable. PHYSICAL EXAM: VITAL SIGNS: Reviewed. GENERAL: Well-developed in no acute distress. NECK: Supple. No JVD or thyromegaly LUNGS: Respirations even and unlabored. Lungs essentially clear to auscultation bilaterally. HEART: Regular rate and rhythm. S1 and S2 heard. EXTREMITIES: Normal range of motion. No clubbing or cyanosis. Peripheral pulses intact. No lower extremity edema ASSESSMENT: Non-STEMI New-onset left bundle branch block RSV Acute hypoxic respiratory failure Acute kidney injury Coronary artery disease with previous stenting of the LAD Ischemic cardiomyopathy History of CVA PLAN: Continue current cardiac medications Continue IV heparin 2-D echo has been ordered. Await results Patient to undergo cardiac catheterization when he is medical stable. NPO at midnight. Repeat kidney function in a.m. Further recommendations pending patient's course Nurse practitioner note has been reviewed by physician. Signing provider agrees with the documented findings, assessment, and plan of care. Objective - Vital Signs Vital signs: Vital Signs Temp 97.2 F L 08/31/23 08:43 Pulse 68 08/31/23 09:00 Resp 19 08/31/23 08:43 BP 121/59 08/31/23 08:43 Pulse Ox 98 08/31/23 08:43 FiO2 70 08/30/23 01:12 Intake & Output 08/30/23 08/31/23 08/31/23 18:59 06:59 18:59 Intake Total 600 133.250 Output Total 650 Balance 600 -516.750 Weight 95.254 kg Intake: Intake, IV Titration 133.250 Amount Heparin Sod,Pork in 0.45% 133.250 NaCl 25,000 unit In 0.45 % NaCl 1 250ml.bag @ 10. 498 UNITS/KG/HR 10 mls/hr IV .Q24H [facility] Rx#: [id number] Oral 600 Output: Urine 650 Other: # Voids 1 3 - Labs CBC & Chem 7: 08/31/23 11:54 08/31/23 02:39 Labs: Abnormal Lab Results - Last 24 Hours (Table) 08/30/23 08/30/23 08/30/23 Range/Units 08:55 11:35 12:38 RBC (4.30-5.90) m/uL Hgb (13.0-17.5) gm/dL Hct (39.0-53.0) % APTT (22.0-30.0) sec Sodium (137-145) mmol/L BUN (9-20) mg/dL Creatinine (0.66-1.25) mg/dL Glucose (74-99) mg/dL POC Glucose (mg/dL) 161 H (70-110) mg/dL Hemoglobin A1c (<=6.0) % Troponin I 4.650 H* 5.360 H* (0.000-0.034) ng/mL HDL Cholesterol (40.00-60.00) mg/dL 08/30/23 08/30/23 08/30/23 Range/Units 12:38 16:14 17:40 RBC 3.63 L (4.30-5.90) m/uL Hgb 10.7 L (13.0-17.5) gm/dL Hct 31.3 L (39.0-53.0) % APTT 106.9 H* (22.0-30.0) sec Sodium (137-145) mmol/L BUN (9-20) mg/dL Creatinine (0.66-1.25) mg/dL Glucose (74-99) mg/dL POC Glucose (mg/dL) 144 H (70-110) mg/dL Hemoglobin A1c (<=6.0) % Troponin I (0.000-0.034) ng/mL HDL Cholesterol (40.00-60.00) mg/dL 08/30/23 08/31/23 08/31/23 Range/Units 20:04 02:39 02:39 RBC (4.30-5.90) m/uL Hgb (13.0-17.5) gm/dL Hct (39.0-53.0) % APTT (22.0-30.0) sec Sodium 132 L (137-145) mmol/L BUN 52 H (9-20) mg/dL Creatinine 1.96 H (0.66-1.25) mg/dL Glucose 145 H (74-99) mg/dL POC Glucose (mg/dL) 122 H (70-110) mg/dL Hemoglobin A1c 8.4 H (<=6.0) % Troponin I (0.000-0.034) ng/mL HDL Cholesterol 28.00 L (40.00-60.00) mg/dL 08/31/23 08/31/23 08/31/23 Range/Units 02:39 02:39 02:39 RBC 3.69 L 3.64 L (4.30-5.90) m/uL Hgb 10.7 L 10.4 L (13.0-17.5) gm/dL Hct 31.8 L 31.3 L (39.0-53.0) % APTT 48.7 H (22.0-30.0) sec Sodium (137-145) mmol/L BUN (9-20) mg/dL Creatinine (0.66-1.25) mg/dL Glucose (74-99) mg/dL POC Glucose (mg/dL) (70-110) mg/dL Hemoglobin A1c (<=6.0) % Troponin I (0.000-0.034) ng/mL HDL Cholesterol (40.00-60.00) mg/dL 08/31/23 Range/Units 06:09 RBC (4.30-5.90) m/uL Hgb (13.0-17.5) gm/dL Hct (39.0-53.0) % APTT (22.0-30.0) sec Sodium (137-145) mmol/L BUN (9-20) mg/dL Creatinine (0.66-1.25) mg/dL Glucose (74-99) mg/dL POC Glucose (mg/dL) 171 H (70-110) mg/dL Hemoglobin A1c (<=6.0) % Troponin I (0.000-0.034) ng/mL HDL Cholesterol (40.00-60.00) mg/dL
[2023-08-31 16:25] LABS: Glucose,Whole Blood 150 mg/dL (70-110)
[2023-08-31] MEDS: TAMSULOSIN 0.4 MG CAP.ER.24H PO SCH (16:39)
[2023-08-31] MEDS ORDERED: BENZONATATE 100 MG CAP PO STA (17:50)
[2023-08-31] MEDS: HEPARIN SOD,PORK IN 0.45% NACL 25,000 UNIT in 0.45% NACL 1 250ML.BAG IV SCH (18:47)
[2023-08-31] MEDS: ATORVASTATIN 80 MG TAB PO SCH (19:55)
[2023-08-31 20:15] LABS: Glucose,Whole Blood 170 mg/dL (70-110)
[2023-08-31] MEDS ORDERED: methylPREDNISolone SOD SUCCI 125 MG/2 ML VIAL IV STA (20:15)
--- NOTE | 2023-08-31 23:20 | XR ---
EXAM: XR chest 1V portable CLINICAL INDICATION:Male, 82 years old with history of ARDS; [facility] COMPARISON: Earlier today 1:44 AM TECHNIQUE: Chest single view. FINDINGS: Lines/tubes/devices: EKG leads and other extrinsic structures overlie the chest. No indwelling lines are seen. Cardiomediastinum: Cardiac silhouette appears stable, mildly enlarged Stable mediastinal silhouette. Vasculature: Possible slight congestion, similar to previous. 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 There is slightly improved aeration o f the lungs, with improving bibasilar and right mid lung infiltrates or atelectasis compared to prior . No new or worsening infiltrate, sizable effusion, or pneumothorax demonstrated. Trace fluid along t he right minor fissure. Bones/soft tissues: Bony thorax appears grossly unchanged as seen. Regional soft tissues appear unremarkable. IMPRESSION: Slightly improved aeration of the lungs, with improving bibasilar and right mid lung infiltrates or a telectasis compared to prior.
[2023-09-01 06:17] LABS: Glucose,Whole Blood 258 mg/dL (70-110)
[2023-09-01] MEDS: carvediloL 6.25 MG TAB PO SCH ×2 (06:20→16:32)
[2023-09-01] MEDS: INSULIN ASPART (NovoLOG) 100 UNIT/ML VIAL SQ SCH ×6 (06:20→21:34)
[2023-09-01] MEDS: CLOPIDOGREL 75 MG TAB PO SCH (08:17)
[2023-09-01] MEDS: ASPIRIN 81 MG PO SCH (08:17)
[2023-09-01] MEDS: FINASTERIDE 5 MG TAB PO SCH (08:17)
[2023-09-01] MEDS: PANTOPRAZOLE 40 MG TABLET PO SCH (08:17)
[2023-09-01] MEDS: NITROGLYCERIN OINT 1 INCH/GM PACKET TOPICAL SCH ×3 (08:19→21:34)
[2023-09-01] MEDS: IPRATROPIUM-ALBUTEROL 3 ML NEB INHALATION SCH ×4 (08:24→21:53)
[2023-09-01 10:17] LABS: African American GFR (CKD) 41 (>60 ml/min/1.73 sqM); Anion Gap 13 mmol/L; Blood Urea Nitrogen 52 mg/dL (9-20); Calcium 8.4 mg/dL (8.4-10.2); Carbon Dioxide 21 mmol/L (22-30); Chloride 98 mmol/L (98-107); Glucose 240 mg/dL (74-99); Non-African American GFR(CKD) 35 (>60 ml/min/1.73 sqM); Potassium 4.4 mmol/L (3.5-5.1); Sodium 132 mmol/L (137-145)
--- NOTE | 2023-09-01 10:17 | CA ---
Transthoracic Echo Report Name: Gregg Fraser Age: 82 Gender: M : 1940 Exam Date: 08/31/2023 09:35 Exam Location: [facility] Ht (in): 66 Wt (lb): 210 Ordering Physician: Sofia Segovia Attending/Referring Phys: [id number], Juliette Director Operating Ginny Torres [facility] Procedure CPT: Indications: nstemi Cardiac Hx: Technical Quality: Technically difficult study Contrast 1: Definity Total Dose (mL): 6 Contrast 2: Total Dose (mL): MEASUREMENTS (Male / Female) Normal Values 2D ECHO LV Diastolic Diameter PLAX 4.4 cm 4.2 - 5.9 / 3.9 - 5.3 cm LV Systolic Diameter PLAX 3.4 cm IVS Diastolic Thickness 1.1 cm 0.6 - 1.0 / 0.6 - 0.9 cm LVPW Diastolic Thickness 1.2 cm 0.6 - 1.0 / 0.6 - 0.9 cm LV Relative Wall Thickness 0.5 LVOT Diameter 2.0 cm Ascending Aorta Diameter 3.0 cm M-MODE Aortic Root Diameter MM 2.8 cm LA Systolic Diameter MM 4.3 cm LA Ao Ratio MM 1.6 AV Cusp Separation MM 1.2 cm DOPPLER AV Peak Velocity 170.5 cm/s AV Peak Gradient 11.6 mmHg AV Mean Velocity 128.8 cm/s AV Mean Gradient 7.2 mmHg AV Velocity Time Integral 42.8 cm LVOT Peak Velocity 88.3 cm/s LVOT Peak Gradient 3.1 mmHg LVOT Velocity Time Integral 21.0 cm LVOT Stroke Volume 66.4 cm??? LVOT Stroke Volume Index 32.5 ml/m??? LVOT Cardiac Index 1951.4 cm???/min???m??? AV Area Cont Eq vti 1.6 cm??? AV Area Cont Eq pk 1.6 cm??? Mitral E Point Velocity 114.6 cm/s Mitral A Point Velocity 83.6 cm/s Mitral E to A Ratio 1.4 MV Deceleration Time 149.1 ms LV E' Lateral Velocity 9.3 cm/s Mitral E to LV E' Lateral Ratio 12.3 LV E' Septal Velocity 7.2 cm/s Mitral E to LV E' Septal Ratio 15.9 TR Peak Velocity 280.6 cm/s TR Peak Gradient 31.5 mmHg Right Atrial Pressure 8.0 mmHg Pulmonary Artery Systolic Pressu 39.5 mmHg Right Ventricular Systolic Press 39.5 mmHg FINDINGS Left Ventricle Mildly increased left ventricular wall thickness. Left ventricular cavity size normal. Mildly reduced left ventricular systolic function. Left ventricular ejection fraction is estimated at 35-40%. Mid to distal anteroseptal, anterior wall hypokinesia. Anterio-apical hypokinesia.. Right Ventricle Normal right ventricular size. Mild pulmonary hypertension. Right Atrium Normal right atrial size. Left Atrium Mild left atrial dilatation. Mitral Valve Mitral valve thickened. Mild mitral regurgitation. Aortic Valve Aortic valve not well visualized. Diffuse thickening of the aortic valve cusps with reduced excursion. Aortic valve sclerosis. No aortic regurgitation. Tricuspid Valve Structurally normal tricuspid valve. Trace tricuspid regurgitation. Pulmonic Valve Pulmonic valve not well visualized. Pericardium Minimal pericardial effusion (normal variant). Aorta Normal size aortic root and proximal ascending aorta. CONCLUSIONS Left ventricular ejection fraction is estimated at 35-40%. Mid to distal anteroseptal, anterior wall hypokinesia. Anterio-apical hypokinesia.. Mildly increased left ventricular wall thickness. Aortic valve sclerosis. Mild Aortic stenosis with VTI ratio 0.4 and stroke volume index of 32, (suggestive of low flow state) RVSP estimated at 40 mmHg Previewed by: Dr Jhon Gonzáles (Electronically Signed) Final Date: 01 September 2023 10:16
--- NOTE | 2023-09-01 11:11 | US ---
EXAMINATION TYPE: US kidneys/renal and bladder DATE OF EXAM: 09/01/2023 COMPARISON: US 10/13/2022 CLINICAL INDICATION: Male, 82 years old with history of ZOEY on CKD; EXAM MEASUREMENTS: Right Kidney: 11.7 x 5.9 x 5.5 cm Left Kidney: 10.9 x 5.5 x 5.2 cm Right Kidney: Hyperechoic focus seen upper pole: 0.4 x 0.4 x 0.6 cm. Questionable fluid adjacent to kidney?-Anechoic area seen: 2.7 x 1.3 x 1.1 cm. Left Kidney: No hydronephrosis or masses seen Bladder: Anechoic Bilateral Jets seen: Only right jet seen during exam. The renal cortex is of normal echogenicity and thickness bilaterally with no evidence of hydronephros is. The bladder wall demonstrates no evidence of wall thickening or calcification. Prostate prominent in size. Incidental findings: Appearance of right and left pleural effusion in RUQ and LUQ imaging. IMPRESSION: 1. There is a new 6 mm hyperechoic focus right kidney too small to characterize but represent non sha dowing stone tiny lipoma\angiomyolipoma 2. There is a small amount of perinephric fluid or infection or chronic medical renal disease. Correl ate with CT scan as clinically warranted.
[2023-09-01 11:20] LABS: Glucose,Whole Blood 273 mg/dL (70-110)
[2023-09-01] MEDS: HEPARIN SOD,PORK IN 0.45% NACL 25,000 UNIT in 0.45% NACL 1 250ML.BAG IV SCH (12:22)
--- NOTE | 2023-09-01 13:03 | P.PN ---
Subjective Progress Note Date: 09/01/23 The patient is an 82-year-old male with a PMH of type II DM, hypertension, hyperlipidemia who had presented to the emergency room with complaints of chest pain. In the ED, patient underwent extensive evaluation: Vital signs Tmax 101.6F, HR 113, RR 32, BP 182/96, 90% on 15L Non rebreather. CBC WBC 13, Hg 12.7. D-Dimer 2.13. APTT 21.7. CMP Na 136, BUN 41, Cr 1.7, glu 210, alk phos 174. Troponin 0.013. RSV + CXR bibasilar PNA Repeat troponin 4.65, 5.36. EKG showed a new LBBB. Started on Heparin drip and Cardiology consulted. Initially, plans for cardiac cath 08/31. 08/31 Patient was seen and examined. He reports a cough. No more chest pain. CBC Hg 10. APTT 48.7. BMP Na 132, BUN 52, Cr 1.96, glu 145. A1c 8.4. Lipid panel HDL 28, LDL 47.7, T. Chol 95. CXR done today shows bibasilar infiltrates. 09/01 Patient was seen and examined. Cardiac cath cancelled yesterday due to worsening renal function. Tessalon added PRN for cough. Maintained on heparin drip. APTT 68.3. BMP Na 132, bicarb 21, BUN 52, Cr 1.79, glu 240. Renal and bladder US ordered. POC glucose 150-258 over the past 24H. 24 units of insulin given over the past 24H on sliding scale. General: non toxic, no distress, appears at stated age Derm: warm, dry Head: atraumatic, normocephalic, symmetric Eyes: EOMI, no lid lag, anicteric sclera Cardiovascular: S1S2 reg, no murmur Lungs: Clear to auscultation bilaterally , no accessory muscle use Ext: no gross muscle atrophy, no edema, no contractures Neuro: no focal neuro deficits Psych: Alert, oriented, appropriate affect Based on my assessment of this patient, this patient meets a high complexity level of care. Patient has an acute diagnosis of NSTEMI that poses a threat to life or bodily function. NSTEMI: ASA 81 mg PO QD. Plavix 75 mg PO QD. Coreg 6.25 mg PO BID. Lipitor 80 mg PO QHS. Nitro topical. Heparin drip at 7.35 units/kg/hr. Echo pending. Telemetry monitoring. Cardiology on board. Plans for cardiac cath. RSV laryngeobronchitis: Symptomatic management. Elevated D-Dimer: No DVT. ZOEY on CKD: Monitor. Hold Lisinopril. Renal and bladder US ordered. Nephrology c onsulted. DM with hyperglycemia: Added Levemir 10 units QHS and Novolog 3 units TID for better glycemic coverage. ISS. Accuchecks ACHS. Hypoglycemic precautions. Normocytic anemia: Stable. 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 No active signs of bleeding. Chronic conditions: Hypertension, history of CVA, PTSD/depression CODE STATUS: FULL CODE DVT Prophylaxis: Heparin drip. GI Prophylaxis: Protonix PO. Designated medical POA if patient is not able to make medical decisions for themselves: I have reviewed the following it solutions sales consultant notes: Cardiology note. I have reviewed the results of the following tests: Coag panel. BMP. I have ordered the following tests: CBC, BMP, Renal/Bladder US. I have discussed the care of this patient with the following independent historian: I have independently interpreted the following test below: I have discussed the management of this patient with the following physician: This patient has a high risk of morbidity due to the following reasons: Patient requires IV heparin which requires intensive monitoring for toxicity (coag panel) and bleeding. Patient requires adjustments in insulin which requires intensive monitoring for hypoglycemic episodes. Objective - Vital Signs Vital signs: Vital Signs Temp 97.2 F L 08/31/23 08:43 Pulse 68 09/01/23 08:36 Resp 23 09/01/23 08:16 BP 120/59 09/01/23 08:16 Pulse Ox 98 09/01/23 08:24 FiO2 40 09/01/23 08:16 Intake & Output 08/31/23 09/01/23 09/01/23 18:59 06:59 18:59 Intake Total 550.917 69.533 Output Total 850 300 Balance -299.083 -230.467 Intake: Intake, IV Titration 100.917 69.533 Amount Heparin Sod,Pork in 0.45% 100.917 69.533 NaCl 25,000 unit In 0.45 % NaCl 1 250ml.bag @ 10. 498 UNITS/KG/HR 10 mls/hr IV .Q24H [facility] Rx#: [id number] Oral 450 Output: Urine 850 300 - Labs CBC & Chem 7: 08/31/23 11:54 09/01/23 09:19 Labs: Abnormal Lab Results - Last 24 Hours (Table) 08/31/23 08/31/23 08/31/23 Range/Units 02:39 11:54 12:15 RBC 3.55 L (4.30-5.90) m/uL Hgb 10.0 L (13.0-17.5) gm/dL Hct 31.1 L (39.0-53.0) % POC Glucose (mg/dL) 255 H (70-110) mg/dL HDL Cholesterol 28.00 L (40.00-60.00) mg/dL 08/31/23 08/31/23 09/01/23 Range/Units 16:23 20:13 06:14 RBC (4.30-5.90) m/uL Hgb (13.0-17.5) gm/dL Hct (39.0-53.0) % POC Glucose (mg/dL) 150 H 170 H 258 H (70-110) mg/dL HDL Cholesterol (40.00-60.00) mg/dL
--- NOTE | 2023-09-01 14:08 | P.PN ---
Subjective HISTORY OF PRESENT ILLNESS: This Is a pleasant 82-year-old gentleman who follows in the office with Dr. Nelson. He has a history of STEMI in September at which time he underwent stenting of the LAD. He subsequently stopped taking his medications and he returned again with evidence of an anterior wall MT and underwent angioplasty and aspiration thrombectomy by Dr. Davis. Subsequently had CVA. He been feeling fairly well since around November of this year. Over the last few days he's been feeling significantly more short of breath. He decided to call EMS when he began developing chest discomfort. Upon presentation he was noted to be in sinus rhythm with left bundle branch block which has not been diagnosed in the past. He is positive for RSV. Chest x-ray showed bibasilar opacifications. Initially troponin came back normal at 0.013 with subsequent troponin of 4.65. At the time of my examination the patient is chest pain-free. His breathing is better. His creatinine is 1.7 which is up compared to his baseline. He follows regularly with Dr. Barker. Myoglobin 12.7. He complains of left lower extremity edema and ultrasound was negative for DVT. His vital signs up and stable. At the time of my examination he is resting comfortably in bed. He denies complaints of chest discomfort. He's had no palpitations, dizziness or lightheadedness. He denies any orthopnea or PND. Continues to complain of checo rtness of breath but improved. 08/31/2023 Patient examined this morning at the bedside. Patient currently denies chest pain or pressure. He reports shortness of breath. Patient has required increased oxygen overnight and is currently on 3 L nasal cannula. Patient's creatinine declined today to 1.90. He was initially scheduled for cardiac catheterization but this has been canceled and will be rescheduled when patient is medically stable. summer Patient examined this morning at the bedside. Patient denies shortness of breath. He does report having an episode of chest discomfort this morning. He denies any chest pain at the time of examination. He remains on IV heparin. Echocardiogram completed revealing ejection fraction 35-40%, mid to distal anterior septal, anterior wall hypokinesia, anterior apical hypokinesia, mild aortic stenosis, mild MR and trace TR PHYSICAL EXAM: VITAL SIGNS: Reviewed. GENERAL: Well-developed in no acute distress. NECK: Supple. No JVD or thyromegaly LUNGS: Respirations even and unlabored. Lungs essentially clear to auscultation bilaterally. HEART: Regular rate and rhythm. S1 and S2 heard. EXTREMITIES: Normal range of motion. No clubbing or cyanosis. Peripheral pulses intact. No lower extremity edema ASSESSMENT: Non-STEMI New-onset left bundle branch block RSV Acute hypoxic respiratory failure Acute kidney injury Coronary artery disease with previous stenting of the LAD Ischemic cardiomyopathy History of CVA PLAN: Continue current cardiac medications Add RIC/ARB when kidney function improves Continue IV heparin NPO at midnight. Repeat kidney function in a.m. Discussed possibility of contrast-induced renal failure with cardiac cathet erization. Patient understands the risk of needing dialysis. If patient continues to have episodes of chest discomfort, may require cardiac catheterization sooner despite abnormal kidney function. Further recommendations pending patient's course Nurse practitioner note has been reviewed by physician. Signing provider agrees with the documented findings, assessment, and plan of care. Objective - Vital Signs Vital signs: Vital Signs Temp 97.2 F L 08/31/23 08:43 Pulse 72 09/01/23 12:48 Resp 18 09/01/23 12:23 BP 145/67 09/01/23 12:23 Pulse Ox 99 09/01/23 12:23 FiO2 40 09/01/23 08:16 Intake & Output 08/31/23 09/01/23 09/01/23 18:59 06:59 18:59 Intake Total 550.917 69.533 0 Output Total 850 300 Balance -299.083 -230.467 0 Intake: Intake, IV Titration 100.917 69.533 Amount Heparin Sod,Pork in 0.45% 100.917 69.533 NaCl 25,000 unit In 0.45 % NaCl 1 250ml.bag @ 10. 498 UNITS/KG/HR 10 mls/hr IV .Q24H [facility] Rx#: [id number] Oral 450 0 Output: Urine 850 300 - Labs CBC & Chem 7: 08/31/23 11:54 09/01/23 09:19 Labs: Abnormal Lab Results - Last 24 Hours (Table) 08/31/23 08/31/23 09/01/23 Range/Units 16:23 20:13 06:14 APTT (22.0-30.0) sec Sodium (137-145) mmol/L Carbon Dioxide (22-30) mmol/L BUN (9-20) mg/dL Creatinine (0.66-1.25) mg/dL Glucose (74-99) mg/dL POC Glucose (mg/dL) 150 H 170 H 258 H (70-110) mg/dL 09/01/23 09/01/23 09/01/23 Range/Units 09:19 09:19 11:17 APTT 68.3 H (22.0-30.0) sec Sodium 132 L (137-145) mmol/L Carbon Dioxide 21 L (22-30) mmol/L BUN 52 H (9-20) mg/dL Creatinine 1.79 H (0.66-1.25) mg/dL Glucose 240 H (74-99) mg/dL POC Glucose (mg/dL) 273 H (70-110) mg/dL
[2023-09-01 16:29] LABS: Glucose,Whole Blood 325 mg/dL (70-110)
[2023-09-01] MEDS: TAMSULOSIN 0.4 MG CAP.ER.24H PO SCH (16:32)
[2023-09-01 20:29] LABS: Glucose,Whole Blood 264 mg/dL (70-110)
[2023-09-01] MEDS ORDERED: INSULIN DETEMIR (LEVEMIR) 100 UNIT/ML SYR SQ SCH (21:00)
[2023-09-01] MEDS: ATORVASTATIN 80 MG TAB PO SCH (21:33)
[2023-09-02] MEDS: BENZONATATE 100 MG CAP PO PRN (02:27)
[2023-09-02] MEDS: HEPARIN SOD,PORK IN 0.45% NACL 25,000 UNIT in 0.45% NACL 1 250ML.BAG IV SCH (04:09)
[2023-09-02 06:12] LABS: Glucose,Whole Blood 202 mg/dL (70-110)
[2023-09-02] MEDS: carvediloL 6.25 MG TAB PO SCH ×2 (06:25→17:29)
[2023-09-02] MEDS: INSULIN ASPART (NovoLOG) 100 UNIT/ML VIAL SQ SCH ×7 (06:25→20:11)
[2023-09-02] MEDS: CLOPIDOGREL 75 MG TAB PO SCH (08:50)
[2023-09-02] MEDS: FINASTERIDE 5 MG TAB PO SCH (08:50)
[2023-09-02] MEDS: NITROGLYCERIN OINT 1 INCH/GM PACKET TOPICAL SCH ×3 (08:50→20:46)
[2023-09-02] MEDS: ASPIRIN 81 MG PO SCH (08:50)
[2023-09-02] MEDS: PANTOPRAZOLE 40 MG TABLET PO SCH (08:50)
[2023-09-02] MEDS: IPRATROPIUM-ALBUTEROL 3 ML NEB INHALATION SCH ×4 (09:02→21:50)
[2023-09-02 09:54] LABS: African American GFR (CKD) 41 (>60 ml/min/1.73 sqM); Anion Gap 12 mmol/L; Blood Urea Nitrogen 65 mg/dL (9-20); Calcium 8.4 mg/dL (8.4-10.2); Carbon Dioxide 22 mmol/L (22-30); Chloride 96 mmol/L (98-107); Glucose 174 mg/dL (74-99); Non-African American GFR(CKD) 35 (>60 ml/min/1.73 sqM); Potassium 4.7 mmol/L (3.5-5.1); Sodium 130 mmol/L (137-145)
--- NOTE | 2023-09-02 10:43 | XR ---
EXAMINATION TYPE: XR chest 1V portable DATE OF EXAM: 09/02/2023 COMPARISON: 08/31/2023 HISTORY: Shortness of breath TECHNIQUE: Single frontal view of the chest is obtained. FINDINGS: Bilateral infiltrate with small effusion. No pneumothorax. Heart size normal. Arthropathy of the shoulders. Hypertrophic and degenerative changes of the spine. IMPRESSION: Bilateral lower lobe infiltrate correlate for pneumonia otherwise consider CHF.
--- NOTE | 2023-09-02 10:46 | P.NPCON ---
History of Present Illness - Reason for Consult chronic renal failure - History of Present Illness Reason for consultation: Chronic kidney disease History of present illness: Patient is a 82-year-old male seen in renal consultation for chronic kidney disease. Patient has chronic kidney disease stage IIIB with baseline creatinine 1.6-1.8. GFR is near baseline. Patient came to the hospital on 08/30/2023 due to shortness of breath. Patient has long-standing history of diabetes. Also has history of coronary artery disease with prior stenting. Patient tested positive for RSV this admission. He tested negative for influenza and COVID-19. Patient does have history of underlying CHF with ejection fraction of 35-40%. He's currently on heparin drip. No vomiting or diarrhea. He is on 4 L nasal c annula. He admits to good urine output. No hematuria or dysuria. Hemodynamically stable. Afebrile this morning. Vital signs are stable. General: No acute distress. HEENT: Head exam is unremarkable. On nasal cannula. LUNGS: Scattered rhonchi. HEART: Rate and Rhythm are regular. ABDOMEN: Nontender. EXTREMITITES: No edema. Past Medical History Past Medical History: CVA/TIA, Diabetes Mellitus, Hypertension, Myocardial Infarction ([place]) Additional Past Medical History / Comment(s): Stroke in December of 2021 Last Myocardial Infarction Date:: 10/03/22 History of Any Multi-Drug Resistant Organisms: None Reported Past Surgical History: Orthopedic Surgery Additional Past Surgical History / Comment(s): Urethral surgery-unsure of date Past Anesthesia/Blood Transfusion Reactions: No Reported Reaction Date of Last Stent Placement:: 10/03/2022 Past Psychological History: No Psychological Hx Reported, Depression, PTSD Smoking Status: Former smoker Past Alcohol Use History: None Reported Past Drug Use History: None Reported - Past Family History Father Family Medical History: Hypertension Medications and Allergies Home Medications Medication Instructions Recorded Confirmed Type Aspirin [[place] Aspirin EC] 81 mg PO DAILY 10/03/22 08/30/23 History Atorvastatin Calcium [Lipitor] 80 mg PO HS 10/03/22 08/30/23 History Carboxymethylcellulose Sodium 1 drop BOTH EYES QID 10/03/22 08/30/23 History [Thera Tears] Finasteride [Proscar] 5 mg PO DAILY 10/03/22 08/30/23 History Insulin Glargine,Hum.rec.anlog 35 units SQ DAILY 10/03/22 08/30/23 History [Insulin Glargine Solostar] Magnesium Oxide 400 mg PO BID 10/03/22 08/30/23 History Omeprazole [PriLOSEC] 20 mg PO DAILY 10/03/22 08/30/23 History Sennosides/Docusate Sodium [Senna 1 tab PO DAILY PRN 10/03/22 08/30/23 History Plus 8.6-50 mg Tablet] Tamsulosin HCl [Flomax] 0.4 mg PO BID 10/03/22 08/30/23 History glipiZIDE [Glucotrol] 20 mg PO AC-BID 10/03/22 08/30/23 History Clopidogrel [Plavix] 75 mg PO DAILY #90 tab 10/07/22 08/30/23 Rx Nitroglycerin Sl Tabs [Nitrostat] 0.4 mg SL Q5M PRN 11/05/22 08/30/23 History Furosemide [Lasix] 40 mg PO DAILY #30 tablet 11/08/22 08/30/23 Rx carvediloL [Coreg] 6.25 mg PO BID-W/MEALS #60 tab 11/08/22 08/30/23 Rx DULoxetine HCL [Cymbalta] 60 mg PO DAILY 08/30/23 08/30/23 History Empagliflozin [Jardiance] 25 mg PO DAILY 08/30/23 08/30/23 History Isosorbide Mononitrate ER [Imdur] 30 mg PO DAILY 08/30/23 08/30/23 History Levothyroxine Sodium [Synthroid] 25 mcg PO DAILY 08/30/23 08/30/23 History Mv-Min/Folic/K1/Lycopen/Lutein 1 tab PO DAILY 08/30/23 08/30/23 History [Centrum Silver Men Tablet] lisinopriL [Zestril] 10 mg PO DAILY 08/30/23 08/30/23 History Allergies Allergy/AdvReac Type Severity Reaction Status Date / Time No Known Allergies Allergy Verified 08/30/23 12:47 Physical Exam Vitals: Vital Signs Temp Pulse Pulse Resp BP Pulse Ox FiO2 09/02/23 09:18 78 09/02/23 09:04 84 09/02/23 08:10 22 93 L 09/02/23 08:00 96.9 F L 72 20 140/67 98 40 09/02/23 04:05 23 97 40 09/02/23 04:00 97.7 F 68 26 H 154/77 91 L 09/01/23 23:55 98.0 F 68 18 141/61 98 09/01/23 22:04 78 09/01/23 21:55 76 09/01/23 20:00 97.7 F 69 18 115/57 99 09/01/23 16:29 72 22 140/65 99 09/01/23 16:00 74 09/01/23 15:49 76 09/01/23 12:48 72 09/01/23 12:30 72 09/01/23 12:23 62 18 145/67 99 Intake and Output 09/01/23 09/02/23 09/02/23 22:59 06:59 14:59 Intake Total 480 164.033 240 Output Total 101 325 Balance 379 164.033 -85 Intake: Intake, IV Titration 164.033 Amount Heparin Sod,Pork in 0.45% 164.033 NaCl 25,000 unit In 0.45 % NaCl 1 250ml.bag @ 10. 498 UNITS/KG/HR 10 mls/hr IV .Q24H [facility] Rx#: [id number] Oral 480 240 Output: Urine 101 325 Other: Voiding Method Toilet Toilet Toilet Urinal Urinal Urinal # Voids 1 1 1 # Bowel Movements 1 Results - Lab Results Most recent lab results Calcium 8.4 mg/dL (8.4-10.2) 09/02/23 08:34 Magnesium 2.2 mg/dL (1.6-2.3) 08/31/23 02:39 08/31/23 11:54 09/02/23 08:34 Assessment and Plan Plan: :N1. Assessment: 1. Chronic kidney disease stage IIIB secondary to diabetic kidney disease with baseline creatinine 1.6-1.8. GFR near baseline. No hydronephrosis noted on kidney ultrasound. 2. Acute hypoxic respiratory failure. 3. Acute RSV infection. 4. History of coronary artery disease with prior stenting. 5. Diabetes mellitus. 6. Chronic systolic CHF with ejection fraction of 35-40%. 7. Anemia of chronic kidney disease. Rule out iron deficiency. 8. Non-ST elevated myocardial infarction. Cardiology following. Plan: Encouraged oral intake. Avoid nephrotoxins. Check iron studies. Discussed with patient the risk of worsening renal function, potentially requiring renal replacement therapy, post-IV contrast exposure. Patient understands. Will cautiously hydrate pre-and post cardiac catheterization due to history of underlying CHF. Thank you for the consultation. I will continue to follow the patient with you during his hospital stay.
--- NOTE | 2023-09-02 10:57 | P.PN ---
Subjective Progress Note Date: 09/02/23 The patient is an 82-year-old male with a PMH of type II DM, hypertension, hyperlipidemia who had presented to the emergency room with complaints of chest pain. In the ED, patient underwent extensive evaluation: Vital signs Tmax 101.6F, HR 113, RR 32, BP 182/96, 90% on 15L Non rebreather. CBC WBC 13, Hg 12.7. D-Dimer 2.13. APTT 21.7. CMP Na 136, BUN 41, Cr 1.7, glu 210, alk phos 174. Troponin 0.013. RSV + CXR bibasilar PNA Repeat troponin 4.65, 5.36. EKG showed a new LBBB. Started on Heparin drip and Cardiology consulted. Initially, plans for cardiac cath 08/31. 08/31 Patient was seen and examined. He reports a cough. No more chest pain. CBC Hg 10. APTT 48.7. BMP Na 132, BUN 52, Cr 1.96, glu 145. A1c 8.4. Lipid panel HDL 28, LDL 47.7, T. Chol 95. CXR done today shows bibasilar infiltrates. 09/01 Patient was seen and examined. Cardiac cath cancelled yesterday due to worsening renal function. Tessalon added PRN for cough. Maintained on heparin drip. APTT 68.3. BMP Na 132, bicarb 21, BUN 52, Cr 1.79, glu 240. Renal and bladder US ordered. POC glucose 150-258 over the past 24H. 24 units of insulin given over the past 24H on sliding scale. Started on Levemir 10 units QHS and Novolog 3 units TID. 09/02 Patient was seen and examined. Much more short of breath today with ronchi bilaterally. STAT CXR ordered shows pulmonary vascular congestion. Cardiac cath cancelled yesterday due to renal function. Maintained on heparin drip. APTT 45.5. BMP pending this morning. POC glucose 202-325 over the past 24H. 39 units of insulin give over the sliding scale yesterday. Plans to increase Levemir to 20 units QHS and Novolog to 7 units TID. Nephrology consulted for CKD, patient aware cardiac cath may lead to worsening renal failure and need for HD. Echo shows EF 35-40% with mid to distal anteroseptal, anterior wall and anterio- apical hypokinesis. Renal US shows 6 mm hyperechoic focus with small amount of perinephric fluid. Nephrology is consulted. General: non toxic, mild distress, appears at stated age Derm: warm, dry Head: atraumatic, normocephalic, symmetric Eyes: EOMI, no lid lag, anicteric sclera Cardiovascular: S1S2 reg, no murmur Lungs: Ronchi bilaterally , no accessory muscle use Ext: no gross muscle atrophy, no edema, no contractures Neuro: no focal neuro deficits Psych: Alert, oriented, appropriate affect Based on my assessment of this patient, this patient meets a high complexity level of care. Patient has an acute diagnosis of NSTEMI that poses a threat to life or bodily function. Acute hypoxic failure: Kat CHF exacerbation worsened with RSV. Obtain pro-yusef. Lasix IV as below. Supplemental O2 to maintain O2 saturation > 92%. Systolic CHF exacerbation: Start Lasix 40 mg IV QD. Strict intake/outtake. Daily weights. NSTEMI: ASA 81 mg PO QD. Plavix 75 mg PO QD. Coreg 6.25 mg PO BID. Lipitor 80 mg PO QHS. Nitro topical. Heparin drip at 7.35 units/kg/hr. Echo as above, severely reduced EF compared to 09/2022 Echo now with hypokinetic wall motion. Telemetry monitoring. Cardiology on board. Plans for cardiac cath. RSV laryngeobronchitis: Symptomatic management. Pro-yusef ordered to rule out bacterial component. Elevated D-Dimer: No DVT. ZOEY on CKD: Monitor. Hold Lisinopril. Renal and bladder US as above. Nephrology consulted. DM with hyperglycemia: Increase Levemir 20 units QHS and Novolog 7 units TID for better glycemic coverage. ISS. Accuchecks ACHS. Hypoglycemic precautions. Normocytic anemia: Stable. 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 No active signs of bleeding. Chronic conditions: Hypertension, history of CVA, PTSD/depression CODE STATUS: FULL CODE DVT Prophylaxis: Heparin drip. GI Prophylaxis: Protonix PO. Designated medical POA if patient is not able to make medical decisions for themselves: I have reviewed the following cognos consultant notes: Cardiology note. I have reviewed the results of the following tests: Renal/Bladder US, Echo. I have ordered the following tests: Pending: CBC, BMP. Procal ordered. I have discussed the care of this patient with the following independent historian: I have independently interpreted the following test below: CXR. I have discussed the management of this patient with the following physician: This patient has a high risk of morbidity due to the following reasons: Patient requires IV heparin which requires intensive monitoring for toxicity (coag panel) and bleeding. Patient requires adjustments in insulin which requires intensive monitoring for hypoglycemic episodes. Patient requires IV lasix which requires intensive monitoring for renal toxiciti y. Objective - Vital Signs Vital signs: Vital Signs Temp 97.7 F 09/02/23 04:00 Pulse 68 09/02/23 04:00 Resp 23 09/02/23 04:05 BP 154/77 09/02/23 04:00 Pulse Ox 97 09/02/23 04:05 FiO2 40 09/02/23 04:05 Intake & Output 09/01/23 09/02/23 09/02/23 18:59 06:59 18:59 Intake Total 0 644.033 Output Total 1 100 Balance -1 544.033 Intake: Intake, IV Titration 164.033 Amount Heparin Sod,Pork in 0.45% 164.033 NaCl 25,000 unit In 0.45 % NaCl 1 250ml.bag @ 10. 498 UNITS/KG/HR 10 mls/hr IV .Q24H [facility] Rx#: [id number] Oral 0 480 Output: Urine 1 100 Other: Voiding Method Toilet Urinal # Voids 1 1 # Bowel Movements 1 - Labs CBC & Chem 7: 08/31/23 11:54 09/02/23 08:34 Labs: Abnormal Lab Results - Last 24 Hours (Table) 09/01/23 09/01/23 09/01/23 Range/Units 09:19 09:19 11:17 APTT 68.3 H (22.0-30.0) sec Sodium 132 L (137-145) mmol/L Carbon Dioxide 21 L (22-30) mmol/L BUN 52 H (9-20) mg/dL Creatinine 1.79 H (0.66-1.25) mg/dL Glucose 240 H (74-99) mg/dL POC Glucose (mg/dL) 273 H (70-110) mg/dL 09/01/23 09/01/23 09/02/23 Range/Units 16:25 20:27 02:19 APTT 45.5 H (22.0-30.0) sec Sodium (137-145) mmol/L Carbon Dioxide (22-30) mmol/L BUN (9-20) mg/dL Creatinine (0.66-1.25) mg/dL Glucose (74-99) mg/dL POC Glucose (mg/dL) 325 H 264 H (70-110) mg/dL 09/02/23 Range/Units 06:10 APTT (22.0-30.0) sec Sodium (137-145) mmol/L Carbon Dioxide (22-30) mmol/L BUN (9-20) mg/dL Creatinine (0.66-1.25) mg/dL Glucose (74-99) mg/dL POC Glucose (mg/dL) 202 H (70-110) mg/dL
[2023-09-02] MEDS: FUROSEMIDE 10 MG/ML 4 ML VIAL IV SCH (11:12)
[2023-09-02 11:28] LABS: Glucose,Whole Blood 147 mg/dL (70-110)
[2023-09-02] MEDS: AZITHROMYCIN 500 MG in SODIUM CHLORIDE 0.9% 250 ML IVPB SCH (12:45)
--- NOTE | 2023-09-02 13:48 | P.PN ---
Subjective HISTORY OF PRESENT ILLNESS: This Is a pleasant 82-year-old gentleman who follows in the office with Dr. Nelson. He has a history of STEMI in September at which time he underwent stenting of the LAD. He subsequently stopped taking his medications and he returned again with evidence of an anterior wall AR and underwent angioplasty and aspiration thrombectomy by Dr. Davis. Subsequently had CVA. He been feeling fairly well since around November of this year. Over the last few days he's been feeling significantly more short of breath. He decided to call EMS when he began developing chest discomfort. Upon presentation he was noted to be in sinus rhythm with left bundle branch block which has not been diagnosed in the past. He is positive for RSV. Chest x-ray showed bibasilar opacifications. Initially troponin came back normal at 0.013 with subsequent troponin of 4.65. At the time of my examination the patient is chest pain-free. His breathing is better. His creatinine is 1.7 which is up compared to his baseline. He follows regularly with Dr. Barker. Myoglobin 12.7. He complains of left lower extremity edema and ultrasound was negative for DVT. His vital signs up and stable. At the time of my examination he is resting comfortably in bed. He denies complaints of chest discomfort. He's had no palpitations, dizziness or lightheadedness. He denies any orthopnea or PND. Continues to complain of checo rtness of breath but improved. 08/31/2023 Patient examined this morning at the bedside. Patient currently denies chest pain or pressure. He reports shortness of breath. Patient has required increased oxygen overnight and is currently on 3 L nasal cannula. Patient's creatinine declined today to 1.90. He was initially scheduled for cardiac catheterization but this has been canceled and will be rescheduled when patient is medically stable. September 01 2023 Patient examined this morning at the bedside. Patient denies shortness of breath. He does report having an episode of chest discomfort this morning. He denies any chest pain at the time of examination. He remains on IV heparin. Echocardiogram completed revealing ejection fraction 35-40%, mid to distal anter ior septal, anterior wall hypokinesia, anterior apical hypokinesia, mild aortic stenosis, mild MR and trace TR September 02 2023 Patient examined this morning at the bedside. Patient developed worsening shortness of breath overnight and required BiPAP. Chest x-ray this morning revealed bilateral lower lobe infiltrates correlate for pneumonia otherwise consider CHF. He remains on IV heparin. Creatinine 1.78. PHYSICAL EXAM: VITAL SIGNS: Reviewed. GENERAL: Well-developed in no acute distress. NECK: Supple. No JVD or thyromegaly LUNGS: Respirations even and unlabored. Lungs essentially clear to auscultation bilaterally. HEART: Regular rate and rhythm. S1 and S2 heard. EXTREMITIES: Normal range of motion. No clubbing or cyanosis. Peripheral pulses intact. No lower extremity edema ASSESSMENT: Non-STEMI New-onset left bundle branch block RSV Acute hypoxic respiratory failure Acute kidney injury Chronic kidney disease Coronary artery disease with previous stenting of the LAD Ischemic cardiomyopathy History of CVA PLAN: Continue current cardiac medications Add RIC/ARB when kidney function improves Continue IV heparin NPO at midnight. Repeat kidney function in a.m. Discussed possibility of contrast-induced renal failure with cardiac catheterization. Patient understands the risk of needing dialysis. Tentative heart cath to be performed tomorrow Further recommendations pending patient's course Nurse practitioner note has been reviewed by physician. Signing provider agrees with the documented findings, assessment, and plan of care. Objective - Vital Signs Vital signs: Vital Signs Temp 96.9 F L 09/02/23 08:00 Pulse 78 09/02/23 09:18 Resp 22 09/02/23 08:10 BP 140/67 09/02/23 08:00 Pulse Ox 93 L 09/02/23 08:10 FiO2 40 09/02/23 08:00 Intake & Output 09/01/23 09/02/23 09/02/23 18:59 06:59 18:59 Intake Total 0 644.033 240 Output Total 1 100 325 Balance -1 544.033 -85 Intake: Intake, IV Titration 164.033 Amount Heparin Sod,Pork in 0.45% 164.033 NaCl 25,000 unit In 0.45 % NaCl 1 250ml.bag @ 10. 498 UNITS/KG/HR 10 mls/hr IV .Q24H [facility] Rx#: [id number] Oral 0 480 240 Output: Urine 1 100 325 Other: Voiding Method Toilet Toilet Urinal Urinal # Voids 1 1 1 # Bowel Movements 1 - Labs CBC & Chem 7: 08/31/23 11:54 09/02/23 08:34 Labs: Abnormal Lab Results - Last 24 Hours (Table) 09/01/23 09/01/23 09/01/23 Range/Units 11:17 16:25 20:27 APTT (22.0-30.0) sec Sodium (137-145) mmol/L Chloride (98-107) mmol/L BUN (9-20) mg/dL Creatinine (0.66-1.25) mg/dL Glucose (74-99) mg/dL POC Glucose (mg/dL) 273 H 325 H 264 H (70-110) mg/dL 09/02/23 09/02/23 09/02/23 Range/Units 02:19 06:10 08:34 APTT 45.5 H (22.0-30.0) sec Sodium 130 L (137-145) mmol/L Chloride 96 L (98-107) mmol/L BUN 65 H (9-20) mg/dL Creatinine 1.78 H (0.66-1.25) mg/dL Glucose 174 H (74-99) mg/dL POC Glucose (mg/dL) 202 H (70-110) mg/dL 09/02/23 Range/Units 08:34 APTT 45.0 H (22.0-30.0) sec Sodium (137-145) mmol/L Chloride (98-107) mmol/L BUN (9-20) mg/dL Creatinine (0.66-1.25) mg/dL Glucose (74-99) mg/dL POC Glucose (mg/dL) (70-110) mg/dL
[2023-09-02 16:06] LABS: % Iron Saturation 18.31 (15.00-50.00)
[2023-09-02 17:02] LABS: Glucose,Whole Blood 155 mg/dL (70-110)
[2023-09-02] MEDS: TAMSULOSIN 0.4 MG CAP.ER.24H PO SCH (17:29)
[2023-09-02 19:59] LABS: Glucose,Whole Blood 136 mg/dL (70-110)
[2023-09-02] MEDS: ATORVASTATIN 80 MG TAB PO SCH (20:47)
[2023-09-02] MEDS: INSULIN DETEMIR (LEVEMIR) 100 UNIT/ML SYR SQ SCH (20:47)
[2023-09-03 04:19] LABS: African American GFR (CKD) 39 (>60 ml/min/1.73 sqM); Anion Gap 13 mmol/L; Blood Urea Nitrogen 57 mg/dL (9-20); Calcium 8.4 mg/dL (8.4-10.2); Carbon Dioxide 25 mmol/L (22-30); Chloride 98 mmol/L (98-107); Glucose 99 mg/dL (74-99); Magnesium 2.3 mg/dL (1.6-2.3); Non-African American GFR(CKD) 34 (>60 ml/min/1.73 sqM); Potassium 4.7 mmol/L (3.5-5.1); Sodium 136 mmol/L (137-145)
[2023-09-03 06:10] LABS: Glucose,Whole Blood 99 mg/dL (70-110)
[2023-09-03] MEDS: INSULIN ASPART (NovoLOG) 100 UNIT/ML VIAL SQ SCH ×7 (06:16→20:33)
[2023-09-03] MEDS: carvediloL 6.25 MG TAB PO SCH ×2 (06:23→17:11)
[2023-09-03] MEDS: FUROSEMIDE 10 MG/ML 4 ML VIAL IV SCH (07:41)
[2023-09-03] MEDS: PANTOPRAZOLE 40 MG TABLET PO SCH (07:42)
[2023-09-03] MEDS: NITROGLYCERIN OINT 1 INCH/GM PACKET TOPICAL SCH ×3 (07:42→20:43)
[2023-09-03] MEDS: FINASTERIDE 5 MG TAB PO SCH (07:42)
[2023-09-03] MEDS: CLOPIDOGREL 75 MG TAB PO SCH (07:42)
[2023-09-03] MEDS: ASPIRIN 81 MG PO SCH (07:42)
[2023-09-03] MEDS: IPRATROPIUM-ALBUTEROL 3 ML NEB INHALATION SCH ×4 (08:21→21:24)
--- NOTE | 2023-09-03 11:01 | P.PN ---
Subjective Patient is seen in follow-up for chronic kidney disease. Renal function stable. Currently on BiPAP. On IV Lasix. Vital signs are stable. General: No acute distress. HEENT: Head exam is unremarkable. On BiPAP. LUNGS: No audible rhonchi or wheezes. HEART: Rate and Rhythm are regular. ABDOMEN: No distention. EXTREMITITES: No edema. Objective - Vital Signs Vital signs: Vital Signs Temp 98.7 F 09/03/23 08:00 Pulse 88 09/03/23 08:33 Resp 28 H 09/03/23 08:00 BP 138/65 09/03/23 08:00 Pulse Ox 98 09/03/23 08:00 FiO2 40 09/03/23 08:21 Intake & Output 09/02/23 09/03/23 09/03/23 18:59 06:59 18:59 Intake Total 480 170.683 240 Output Total 1600 300 125 Balance -1120 -129.317 115 Weight 122 kg Intake: Intake, IV Titration 170.683 Amount Heparin Sod,Pork in 0.45% 170.683 NaCl 25,000 unit In 0.45 % NaCl 1 250ml.bag @ 10. 498 UNITS/KG/HR 10 mls/hr IV .Q24H [facility] Rx#: [id number] Oral 480 240 Output: Urine 1600 300 125 Other: Voiding Method Toilet Toilet Toilet Urinal Urinal Urinal # Voids 1 # Bowel Movements 1 - Labs CBC & Chem 7: 08/31/23 11:54 09/03/23 02:51 Labs: Abnormal Lab Results - Last 24 Hours (Table) 09/02/23 09/02/23 09/02/23 Range/Units 08:34 08:34 11:25 APTT (22.0-30.0) sec Sodium (137-145) mmol/L BUN (9-20) mg/dL Creatinine (0.66-1.25) mg/dL POC Glucose (mg/dL) 147 H (70-110) mg/dL Iron 52 L (65-175) UG/DL Transferrin 203.0 L (204.0-354.0) mg/dL Procalcitonin 0.57 H (0.02-0.09) ng/mL 09/02/23 09/02/23 09/03/23 Range/Units 17:00 19:58 02:51 APTT 43.3 H (22.0-30.0) sec Sodium (137-145) mmol/L BUN (9-20) mg/dL Creatinine (0.66-1.25) mg/dL POC Glucose (mg/dL) 155 H 136 H (70-110) mg/dL Iron (65-175) UG/DL Transferrin (204.0-354.0) mg/dL Procalcitonin (0.02-0.09) ng/mL 09/03/23 09/03/23 Range/Units 02:51 10:07 APTT 61.6 H (22.0-30.0) sec Sodium 136 L (137-145) mmol/L BUN 57 H (9-20) mg/dL Creatinine 1.83 H (0.66-1.25) mg/dL POC Glucose (mg/dL) (70-110) mg/dL Iron (65-175) UG/DL Transferrin (204.0-354.0) mg/dL Procalcitonin (0.02-0.09) ng/mL Assessment and Plan Plan: :N1. Assessment: 1. Chronic kidney disease stage IIIB secondary to diabetic kidney disease with baseline creatinine 1.6-1.8. GFR near baseline. No hydronephrosis noted on kidney ultrasound. 2. Acute hypoxic respiratory failure. 3. Acute RSV infection. 4. History of coronary artery disease with prior stenting. 5. Diabetes mellitus. 6. Chronic systolic CHF with ejection fraction of 35-40%. 7. Anemia of chronic kidney disease. Iron deficiency noted. 8. Non-ST elevated myocardial infarction. Cardiology following. Plan: Maintain IV Lasix for now. Add IV iron. Encouraged oral intake. Avoid nephrotoxins. Discussed with patient the risk of worsening renal function, potentially requiring renal replacement therapy, post-IV contrast exposure. Patient understands. Will cautiously hydrate if able pre-and post cardiac catheterization due to history of underlying CHF.
[2023-09-03] MEDS: AZITHROMYCIN 500 MG in SODIUM CHLORIDE 0.9% 250 ML IVPB SCH (11:16)
[2023-09-03] MEDS: HEPARIN SOD,PORK IN 0.45% NACL 25,000 UNIT in 0.45% NACL 1 250ML.BAG IV SCH (11:17)
[2023-09-03 11:26] LABS: Glucose,Whole Blood 95 mg/dL (70-110)
[2023-09-03] MEDS: SODIUM FERRIC GLUCONAT-SUCROSE 125 MG in SODIUM CHLORIDE 0.9% 100 ML IVPB SCH (12:44)
[2023-09-03] MEDS ORDERED: FUROSEMIDE 10 MG/ML 4 ML VIAL IV STA (13:06)
--- NOTE | 2023-09-03 14:34 | P.PN ---
Subjective HISTORY OF PRESENT ILLNESS: This Is a pleasant 82-year-old gentleman who follows in the office with Dr. Nelson. He has a history of STEMI in September at which time he underwent stenting of the LAD. He subsequently stopped taking his medications and he returned again with evidence of an anterior wall MN and underwent angioplasty and aspiration thrombectomy by Dr. Davis. Subsequently had CVA. He been feeling fairly well since around November of this year. Over the last few days he's been feeling significantly more short of breath. He decided to call EMS when he began developing chest discomfort. Upon presentation he was noted to be in sinus rhythm with left bundle branch block which has not been diagnosed in the past. He is positive for RSV. Chest x-ray showed bibasilar opacifications. Initially troponin came back normal at 0.013 with subsequent troponin of 4.65. At the time of my examination the patient is chest pain-free. His breathing is better. His creatinine is 1.7 which is up compared to his baseline. He follows regularly with Dr. Barker. Myoglobin 12.7. He complains of left lower extremity edema and ultrasound was negative for DVT. His vital signs up and stable. At the time of my examination he is resting comfortably in bed. He denies complaints of chest discomfort. He's had no palpitations, dizziness or lightheadedness. He denies any orthopnea or PND. Continues to complain of checo rtness of breath but improved. 08/31/2023 Patient examined this morning at the bedside. Patient currently denies chest pain or pressure. He reports shortness of breath. Patient has required increased oxygen overnight and is currently on 3 L nasal cannula. Patient's creatinine declined today to 1.90. He was initially scheduled for cardiac catheterization but this has been canceled and will be rescheduled when patient is medically stable. September 01 2023 Patient examined this morning at the bedside. Patient denies shortness of breath. He does report having an episode of chest discomfort this morning. He denies any chest pain at the time of examination. He remains on IV heparin. Echocardiogram completed revealing ejection fraction 35-40%, mid to distal anter ior septal, anterior wall hypokinesia, anterior apical hypokinesia, mild aortic stenosis, mild MR and trace TR September 02 2023 Patient examined this morning at the bedside. Patient developed worsening shortness of breath overnight and required BiPAP. Chest x-ray this morning revealed bilateral lower lobe infiltrates correlate for pneumonia otherwise consider CHF. He remains on IV heparin. Creatinine 1.78. 09/03/2023 Patient examined this morning at the bedside. Patient remains on BiPAP. He reports feeling short of breath when the BiPAP is removed and also has a drop in his oxygen saturations. He currently denies any chest pain or pressure. He remains on IV heparin. PHYSICAL EXAM: VITAL SIGNS: Reviewed. GENERAL: Well-developed in no acute distress. NECK: Supple. No JVD or thyromegaly LUNGS: Respirations even and unlabored. Lungs essentially clear to auscultation bilaterally. HEART: Regular rate and rhythm. S1 and S2 heard. EXTREMITIES: Normal range of motion. No clubbing or cyanosis. Peripheral pulses intact. No lower extremity edema ASSESSMENT: Non-STEMI New-onset left bundle branch block RSV Acute hypoxic respiratory failure Acute kidney injury Chronic kidney disease Coronary artery disease with previous stenting of the LAD Ischemic cardiomyopathy History of CVA PLAN: Continue current cardiac medications Add RIC/ARB when kidney function improves Continue IV heparin NPO at midnight. Repeat kidney function in a.m. Discussed possibility of contrast-induced renal failure with cardiac cathete rization. Patient understands the risk of needing dialysis. Heart cath to be performed tomorrow with Bipap on by either Dr. Remy or Dr. Nelson Further recommendations pending patient's course Nurse practitioner note has been reviewed by physician. Signing provider agrees with the documented findings, assessment, and plan of care. Objective - Vital Signs Vital signs: Vital Signs Temp 98.3 F 09/03/23 11:16 Pulse 80 09/03/23 11:51 Resp 29 H 09/03/23 11:16 BP 155/67 09/03/23 11:16 Pulse Ox 97 09/03/23 11:16 FiO2 40 09/03/23 11:40 Intake & Output 09/02/23 09/03/23 09/03/23 18:59 06:59 18:59 Intake Total 480 170.683 300.116 Output Total 1600 300 875 Balance -1120 -129.317 -574.884 Weight 122 kg Intake: Intake, IV Titration 170.683 60.116 Amount Heparin Sod,Pork in 0.45% 170.683 60.116 NaCl 25,000 unit In 0.45 % NaCl 1 250ml.bag @ 10. 498 UNITS/KG/HR 10 mls/hr IV .Q24H [facility] Rx#: [id number] Oral 480 240 Output: Urine 1600 300 875 Other: Voiding Method Toilet Toilet Toilet Urinal Urinal Urinal # Voids 1 2 # Bowel Movements 1 - Labs CBC & Chem 7: 08/31/23 11:54 09/03/23 02:51 Labs: Abnormal Lab Results - Last 24 Hours (Table) 09/02/23 09/02/23 09/02/23 Range/Units 08:34 08:34 17:00 APTT (22.0-30.0) sec Sodium (137-145) mmol/L BUN (9-20) mg/dL Creatinine (0.66-1.25) mg/dL POC Glucose (mg/dL) 155 H (70-110) mg/dL Iron 52 L (65-175) UG/DL Transferrin 203.0 L (204.0-354.0) mg/dL Procalcitonin 0.57 H (0.02-0.09) ng/mL 09/02/23 09/03/23 09/03/23 Range/Units 19:58 02:51 02:51 APTT 43.3 H (22.0-30.0) sec Sodium 136 L (137-145) mmol/L BUN 57 H (9-20) mg/dL Creatinine 1.83 H (0.66-1.25) mg/dL POC Glucose (mg/dL) 136 H (70-110) mg/dL Iron (65-175) UG/DL Transferrin (204.0-354.0) mg/dL Procalcitonin (0.02-0.09) ng/mL 09/03/23 Range/Units 10:07 APTT 61.6 H (22.0-30.0) sec Sodium (137-145) mmol/L BUN (9-20) mg/dL Creatinine (0.66-1.25) mg/dL POC Glucose (mg/dL) (70-110) mg/dL Iron (65-175) UG/DL Transferrin (204.0-354.0) mg/dL Procalcitonin (0.02-0.09) ng/mL
--- NOTE | 2023-09-03 14:53 | P.PN ---
Subjective Progress Note Date: 09/03/23 The patient is an 82-year-old male with a PMH of type II DM, hypertension, hyperlipidemia who had presented to the emergency room with complaints of chest pain. In the ED, patient underwent extensive evaluation: Vital signs Tmax 101.6F, HR 113, RR 32, BP 182/96, 90% on 15L Non rebreather. CBC WBC 13, Hg 12.7. D-Dimer 2.13. APTT 21.7. CMP Na 136, BUN 41, Cr 1.7, glu 210, alk phos 174. Troponin 0.013. RSV + CXR bibasilar PNA Repeat troponin 4.65, 5.36. EKG showed a new LBBB. Started on Heparin drip and Cardiology consulted. Initially, plans for cardiac cath 08/31. 08/31 Patient was seen and examined. He reports a cough. No more chest pain. CBC Hg 10. APTT 48.7. BMP Na 132, BUN 52, Cr 1.96, glu 145. A1c 8.4. Lipid panel HDL 28, LDL 47.7, T. Chol 95. CXR done today shows bibasilar infiltrates. 09/01 Patient was seen and examined. Cardiac cath cancelled yesterday due to worsening renal function. Tessalon added PRN for cough. Maintained on heparin drip. APTT 68.3. BMP Na 132, bicarb 21, BUN 52, Cr 1.79, glu 240. Renal and bladder US ordered. POC glucose 150-258 over the past 24H. 24 units of insulin given over the past 24H on sliding scale. Started on Levemir 10 units QHS and Novolog 3 units TID. 09/02 Patient was seen and examined. Much more short of breath today with ronchi bilaterally. STAT CXR ordered shows pulmonary vascular congestion. Cardiac cath cancelled yesterday due to renal function. Maintained on heparin drip. APTT 45.5. BMP pending this morning. POC glucose 202-325 over the past 24H. 39 units of insulin give over the sliding scale yesterday. Plans to increase Levemir to 20 units QHS and Novolog to 7 units TID. Nephrology consulted for CKD, patient aware cardiac cath may lead to worsening renal failure and need for HD. Echo shows EF 35-40% with mid to distal anteroseptal, anterior wall and anterio- apical hypokinesis. Renal US shows 6 mm hyperechoic focus with small amount of perinephric fluid. Nephrology is consulted. 09/03 Patient was seen and examined. Maintained on BiPAP. Desaturates into the 70s when not on BiPAP. Started on Lasix 40 mg IV QD for possible CHF exacerbation and Rocephin/Azithromycin for concerns of superimposed bacterial PNA. APTT 61.6. BMP Na 136, BUN 57, Cr 1.83. Procal 0.57. General: non toxic, mild distress, appears at stated age Derm: warm, dry Head: atraumatic, normocephalic, symmetric Eyes: EOMI, no lid lag, anicteric sclera Cardiovascular: S1S2 reg, no murmur Lungs: Ronchi bilaterally , no accessory muscle use Ext: no gross muscle atrophy, no edema, no contractures Neuro: no focal neuro deficits Psych: Alert, oriented, appropriate affect Based on my assessment of this patient, this patient meets a high complexity le perico of care. Patient has an acute diagnosis of NSTEMI that poses a threat to life or bodily function. Acute hypoxic failure: Kat CHF exacerbation worsened with RSV. Concerns for superimposed bacterial PNA. Pro-yusef elevated. Lasix IV as below. Rocephin 1 g IV QD and Azithromyin 500 mg IV QD. Pulmonolgy consult. Supplemental O2 to maintain O2 saturation > 92%. Systolic CHF exacerbation: Start Lasix 40 mg IV QD. Strict intake/outtake. Daily weights. NSTEMI: ASA 81 mg PO QD. Plavix 75 mg PO QD. Coreg 6.25 mg PO BID. Lipitor 80 mg PO QHS. Nitro topical. Heparin drip at 7.35 units/kg/hr. Echo as above, severely reduced EF compared to 09/2022 Echo now with hypokinetic wall motion. Telemetry monitoring. Cardiology on board. Plans for cardiac cath when clinically stable. RSV laryngeobronchitis: Symptomatic management. Elevated D-Dimer: No DVT. ZOEY on CKD: Monitor. Hold Lisinopril. Renal and bladder US as above. Nephrology consulted. DM with hyperglycemia: Levemir 20 units QHS and Novolog 7 units TID. ISS. Accuchecks ACHS. Hypoglycemic precautions. Normocytic anemia: Stable. 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 No active signs of bleeding. Chronic conditions: Hypertension, history of CVA, PTSD/depression CODE STATUS: FULL CODE DVT Prophylaxis: Heparin drip. GI Prophylaxis: Protonix PO. Designated medical POA if patient is not able to make medical decisions for themselves: I have reviewed the following job service consultant notes: Cardiology, Nephro note. I have reviewed the results of the following tests: CBC, BMP, Procal. I have ordered the following tests: CBC, BMP. I have discussed the care of this patient with the following independent historian: RANDALL. I have independently interpreted the following test below: I have discussed the management of this patient with the following physician: This patient has a high risk of morbidity due to the following reasons: Patient requires IV heparin which requires intensive monitoring for toxicity (coag panel) and bleeding. Patient requires IV lasix which requires intensive monitoring for renal toxicitiy. Objective - Vital Signs Vital signs: Vital Signs Temp 98.3 F 09/03/23 11:16 Pulse 80 09/03/23 11:51 Resp 29 H 09/03/23 11:16 BP 155/67 09/03/23 11:16 Pulse Ox 97 09/03/23 11:16 FiO2 40 09/03/23 11:40 Intake & Output 09/02/23 09/03/23 09/03/23 18:59 06:59 18:59 Intake Total 480 170.683 300.116 Output Total 1600 300 875 Balance -1120 -129.317 -574.884 Weight 122 kg Intake: Intake, IV Titration 170.683 60.116 Amount Heparin Sod,Pork in 0.45% 170.683 60.116 NaCl 25,000 unit In 0.45 % NaCl 1 250ml.bag @ 10. 498 UNITS/KG/HR 10 mls/hr IV .Q24H [facility] Rx#: [id number] Oral 480 240 Output: Urine 1600 300 875 Other: Voiding Method Toilet Toilet Toilet Urinal Urinal Urinal # Voids 1 2 # Bowel Movements 1 - Labs CBC & Chem 7: 08/31/23 11:54 09/03/23 02:51 Labs: Abnormal Lab Results - Last 24 Hours (Table) 09/02/23 09/02/23 09/02/23 Range/Units 08:34 08:34 17:00 APTT (22.0-30.0) sec Sodium (137-145) mmol/L BUN (9-20) mg/dL Creatinine (0.66-1.25) mg/dL POC Glucose (mg/dL) 155 H (70-110) mg/dL Iron 52 L (65-175) UG/DL Transferrin 203.0 L (204.0-354.0) mg/dL Procalcitonin 0.57 H (0.02-0.09) ng/mL 09/02/23 09/03/23 09/03/23 Range/Units 19:58 02:51 02:51 APTT 43.3 H (22.0-30.0) sec Sodium 136 L (137-145) mmol/L BUN 57 H (9-20) mg/dL Creatinine 1.83 H (0.66-1.25) mg/dL POC Glucose (mg/dL) 136 H (70-110) mg/dL Iron (65-175) UG/DL Transferrin (204.0-354.0) mg/dL Procalcitonin (0.02-0.09) ng/mL 09/03/23 Range/Units 10:07 APTT 61.6 H (22.0-30.0) sec Sodium (137-145) mmol/L BUN (9-20) mg/dL Creatinine (0.66-1.25) mg/dL POC Glucose (mg/dL) (70-110) mg/dL Iron (65-175) UG/DL Transferrin (204.0-354.0) mg/dL Procalcitonin (0.02-0.09) ng/mL
--- NOTE | 2023-09-03 15:43 | P.CNPUL ---
History of Present Illness Consult date: 09/03/23 Requesting physician: Delia Gutierrez Reason for consult: dyspnea, pneumonia Chief complaint: Shortness of breath History of present illness: This is an 82-year-old white male with history of multiple medical problems including CVA, TIA, type 2 diabetes, hypertension, previous NH, patient was actually admitted on 08/30/2023, admitted with the chief complaint of shortness of breath and cough. Patient tested positive for RSV on his admission, and chest x-ray showed bibasilar opacities. Patient was also complaining of acute onset chest pain, and he was noted to have elevated troponin. Cardiology saw the patient, and felt that the patient has ischemic cardiomyopathy, in addition he had RSV acute tracheobronchitis/URI secondary to RSV, pro-calcitonin level was also elevated, and patient has been receiving antibiotics in the form of Rocephin and Zithromax. Patient also developed worsening kidney disease, he is known to have history of stage IIIB chronic kidney disease, baseline creatinine is in the range of 1.6-1.8, but considering his worsening renal functioning, patient was seen by nephrology on consultation, and recommended mostly encouraging oral intakes, and avoiding nephrotoxins as well as iron studies. Patient is also now being considered for possible cardiac catheterization. He does have ischemic cardiomyopathy with LV dysfunction and ejection fraction of 35-40%. According to the patient is a lifelong nonsmoker, but during my evaluation the patient had diffuse rhonchi and wheezing bilaterally. Patient has been almost BiPAP dependent with IPAP of 12 and EPAP of 6 and 40% FiO2, does not feel well when he gets switched to nasal cannula continues to have inte rmittent episodes of cough wheezing and shortness of breath. Again the patient has no previous history of COPD and he had no review a smoking history according to the patient. Chest x-ray from yesterday showed left lower lobe atelectasis, possible pneumonia, no evidence of congestive heart failure. Again his pro- calcitonin level was noted in the range of 0.5 7. Review of Systems Constitutional: Negative HEENT: Negative Pulmonary: As noted in HPI cough wheezing shortness of breath Cardiac: Denies any chest pain at present, denies any orthopnea or PND, being considered for cardiac catheterization. Pulmonary: As noted in HPI cough wheezing shortness of breath Musculoskeletal: Negative Psychiatric: Negative Genitourinary: Negative Endocrine: Negative Hematologic: Negative Neurologic: Negative Skin: Negative Past Medical History Past Medical History: CVA/TIA, Diabetes Mellitus, Hypertension, Myocardial Infarction (NH) Additional Past Medical History / Comment(s): Stroke in December of 2021 Last Myocardial Infarction Date:: 10/03/22 History of Any Multi-Drug Resistant Organisms: None Reported Past Surgical History: Orthopedic Surgery Additional Past Surgical History / Comment(s): Urethral surgery-unsure of date Past Anesthesia/Blood Transfusion Reactions: No Reported Reaction Date of Last Stent Placement:: 10/03/2022 Past Psychological History: No Psychological Hx Reported, Depression, PTSD Smoking Status: Former smoker Past Alcohol Use History: None Reported Past Drug Use History: None Reported - Past Family History Father Family Medical History: Hypertension Medications and Allergies Home Medications Medication Instructions Recorded Confirmed Type Aspirin [[place] Aspirin EC] 81 mg PO DAILY 10/03/22 08/30/23 History Atorvastatin Calcium [Lipitor] 80 mg PO HS 10/03/22 08/30/23 History Carboxymethylcellulose Sodium 1 drop BOTH EYES QID 10/03/22 08/30/23 History [Thera Tears] Finasteride [Proscar] 5 mg PO DAILY 10/03/22 08/30/23 History Insulin Glargine,Hum.rec.anlog 35 units SQ DAILY 10/03/22 08/30/23 History [Insulin Glargine Solostar] Magnesium Oxide 400 mg PO BID 10/03/22 08/30/23 History Omeprazole [PriLOSEC] 20 mg PO DAILY 10/03/22 08/30/23 History Sennosides/Docusate Sodium [Senna 1 tab PO DAILY PRN 10/03/22 08/30/23 History Plus 8.6-50 mg Tablet] Tamsulosin HCl [Flomax] 0.4 mg PO BID 10/03/22 08/30/23 History glipiZIDE [Glucotrol] 20 mg PO AC-BID 10/03/22 08/30/23 History Clopidogrel [Plavix] 75 mg PO DAILY #90 tab 10/07/22 08/30/23 Rx Nitroglycerin Sl Tabs [Nitrostat] 0.4 mg SL Q5M PRN 11/05/22 08/30/23 History Furosemide [Lasix] 40 mg PO DAILY #30 tablet 11/08/22 08/30/23 Rx carvediloL [Coreg] 6.25 mg PO BID-W/MEALS #60 tab 11/08/22 08/30/23 Rx DULoxetine HCL [Cymbalta] 60 mg PO DAILY 08/30/23 08/30/23 History Empagliflozin [Jardiance] 25 mg PO DAILY 08/30/23 08/30/23 History Isosorbide Mononitrate ER [Imdur] 30 mg PO DAILY 08/30/23 08/30/23 History Levothyroxine Sodium [Synthroid] 25 mcg PO DAILY 08/30/23 08/30/23 History Mv-Min/Folic/K1/Lycopen/Lutein 1 tab PO DAILY 08/30/23 08/30/23 History [Centrum Silver Men Tablet] lisinopriL [Zestril] 10 mg PO DAILY 08/30/23 08/30/23 History Allergies Allergy/AdvReac Type Severity Reaction Status Date / Time No Known Allergies Allergy Verified 08/30/23 12:47 Physical Exam Vitals: Vital Signs Temp Pulse Pulse Resp BP Pulse Ox FiO2 09/03/23 11:51 80 09/03/23 11:40 80 40 09/03/23 11:16 98.3 F 70 29 H 155/67 97 09/03/23 08:33 88 09/03/23 08:21 88 40 09/03/23 08:00 98.7 F 75 28 H 138/65 98 40 09/03/23 04:25 40 09/03/23 04:00 97.0 F L 81 26 H 127/60 98 40 09/03/23 00:46 40 09/03/23 00:00 97.0 F L 85 28 H 142/66 95 40 09/02/23 22:01 88 09/02/23 21:50 84 40 09/02/23 20:00 97.8 F 88 28 H 151/69 96 40 09/02/23 16:09 86 09/02/23 15:58 84 40 09/02/23 15:34 97.9 F 80 24 144/68 97 Intake and Output 09/03/23 09/03/23 09/03/23 06:59 14:59 22:59 Intake Total 170.683 300.116 Output Total 300 875 Balance -129.317 -574.884 Intake: Intake, IV Titration 170.683 60.116 Amount Heparin Sod,Pork in 0.45% 170.683 60.116 NaCl 25,000 unit In 0.45 % NaCl 1 250ml.bag @ 10. 498 UNITS/KG/HR 10 mls/hr IV .Q24H [facility] Rx#: [id number] Oral 240 Output: Urine 300 875 Other: Voiding Method Toilet Toilet Urinal Urinal # Voids 2 Weight 122 kg Physical Exam: Revealed 82-year-old white male on BiPAP, not in distress Head: Atraumatic, normocephalic HEENT:[Neck is supple.] [No neck masses.] [No thyromegaly.] [No JVD.] Chest: [Diffuse rhonchi and wheezes noted bilaterally. Cardiac Exam: [Normal S1 and S2, no S3 gallop, no murmur.] Abdomen: [Soft, nontender, no megaly, no rebound, no guarding, normal bowel sounds.] Extremities: [No clubbing, no edema, no cyanosis.] Neurological Exam: [No focal neurologic deficit.] Alert and oriented 3. Psychiatric: Normal mood affect and normal mental status examination. Skin: No rashes Results - Laboratory Findings CBC and BMP: 08/31/23 11:54 09/03/23 02:51 PT/INR, D-dimer PT 11.3 sec (10.0-12.5) 08/31/23 02:39 INR 1.0 (<1.2) 08/31/23 02:39 D-Dimer 2.13 mg/L FEU (<0.60) H 08/30/23 05:42 Abnormal lab findings: Abnormal Labs 08/30/23 08/30/23 08/30/23 01:10 01:10 01:10 WBC 13.0 H RBC Hgb 12.7 L Hct 38.5 L Neutrophils # 9.2 H APTT 21.7 L D-Dimer Sodium 136 L Chloride Carbon Dioxide BUN 41 H Creatinine 1.70 H Glucose 210 H POC Glucose (mg/dL) Hemoglobin A1c Iron Transferrin Alkaline Phosphatase 174 H Troponin I HDL Cholesterol Procalcitonin RSV (PCR) 08/30/23 08/30/23 08/30/23 01:35 05:42 07:21 WBC RBC Hgb Hct Neutrophils # APTT D-Dimer 2.13 H Sodium Chloride Carbon Dioxide BUN Creatinine Glucose POC Glucose (mg/dL) 183 H Hemoglobin A1c Iron Transferrin Alkaline Phosphatase Troponin I HDL Cholesterol Procalcitonin RSV (PCR) Detected A 08/30/23 08/30/23 08/30/23 08:55 11:35 12:38 WBC RBC Hgb Hct Neutrophils # APTT D-Dimer Sodium Chloride Carbon Dioxide BUN Creatinine Glucose POC Glucose (mg/dL) 161 H Hemoglobin A1c Iron Transferrin Alkaline Phosphatase Troponin I 4.650 H* 5.360 H* HDL Cholesterol Procalcitonin RSV (PCR) 08/30/23 08/30/23 08/30/23 12:38 16:14 17:40 WBC RBC 3.63 L Hgb 10.7 L Hct 31.3 L Neutrophils # APTT 106.9 H* D-Dimer Sodium Chloride Carbon Dioxide BUN Creatinine Glucose POC Glucose (mg/dL) 144 H Hemoglobin A1c Iron Transferrin Alkaline Phosphatase Troponin I HDL Cholesterol Procalcitonin RSV (PCR) 08/30/23 08/31/23 08/31/23 20:04 02:39 02:39 WBC RBC Hgb Hct Neutrophils # APTT D-Dimer Sodium 132 L Chloride Carbon Dioxide BUN 52 H Creatinine 1.96 H Glucose 145 H POC Glucose (mg/dL) 122 H Hemoglobin A1c 8.4 H Iron Transferrin Alkaline Phosphatase Troponin I HDL Cholesterol 28.00 L Procalcitonin RSV (PCR) 08/31/23 08/31/23 08/31/23 02:39 02:39 02:39 WBC RBC 3.69 L 3.64 L Hgb 10.7 L 10.4 L Hct 31.8 L 31.3 L Neutrophils # APTT 48.7 H D-Dimer Sodium Chloride Carbon Dioxide BUN Creatinine Glucose POC Glucose (mg/dL) Hemoglobin A1c Iron Transferrin Alkaline Phosphatase Troponin I HDL Cholesterol Procalcitonin RSV (PCR) 08/31/23 08/31/23 08/31/23 06:09 11:54 12:15 WBC RBC 3.55 L Hgb 10.0 L Hct 31.1 L Neutrophils # APTT D-Dimer Sodium Chloride Carbon Dioxide BUN Creatinine Glucose POC Glucose (mg/dL) 171 H 255 H Hemoglobin A1c Iron Transferrin Alkaline Phosphatase Troponin I HDL Cholesterol Procalcitonin RSV (PCR) 08/31/23 08/31/23 09/01/23 16:23 20:13 06:14 WBC RBC Hgb Hct Neutrophils # APTT D-Dimer Sodium Chloride Carbon Dioxide BUN Creatinine Glucose POC Glucose (mg/dL) 150 H 170 H 258 H Hemoglobin A1c Iron Transferrin Alkaline Phosphatase Troponin I HDL Cholesterol Procalcitonin RSV (PCR) 09/01/23 09/01/23 09/01/23 09:19 09:19 11:17 WBC RBC Hgb Hct Neutrophils # APTT 68.3 H D-Dimer Sodium 132 L Chloride Carbon Dioxide 21 L BUN 52 H Creatinine 1.79 H Glucose 240 H POC Glucose (mg/dL) 273 H Hemoglobin A1c Iron Transferrin Alkaline Phosphatase Troponin I HDL Cholesterol Procalcitonin RSV (PCR) 09/01/23 09/01/23 09/02/23 16:25 20:27 02:19 WBC RBC Hgb Hct Neutrophils # APTT 45.5 H D-Dimer Sodium Chloride Carbon Dioxide BUN Creatinine Glucose POC Glucose (mg/dL) 325 H 264 H Hemoglobin A1c Iron Transferrin Alkaline Phosphatase Troponin I HDL Cholesterol Procalcitonin RSV (PCR) 09/02/23 09/02/23 09/02/23 06:10 08:34 08:34 WBC RBC Hgb Hct Neutrophils # APTT 45.0 H D-Dimer Sodium 130 L Chloride 96 L Carbon Dioxide BUN 65 H Creatinine 1.78 H Glucose 174 H POC Glucose (mg/dL) 202 H Hemoglobin A1c Iron Transferrin Alkaline Phosphatase Troponin I HDL Cholesterol Procalcitonin RSV (PCR) 09/02/23 09/02/23 09/02/23 08:34 08:34 11:25 WBC RBC Hgb Hct Neutrophils # APTT D-Dimer Sodium Chloride Carbon Dioxide BUN Creatinine Glucose POC Glucose (mg/dL) 147 H Hemoglobin A1c Iron 52 L Transferrin 203.0 L Alkaline Phosphatase Troponin I HDL Cholesterol Procalcitonin 0.57 H RSV (PCR) 09/02/23 09/02/23 09/03/23 17:00 19:58 02:51 WBC RBC Hgb Hct Neutrophils # APTT 43.3 H D-Dimer Sodium Chloride Carbon Dioxide BUN Creatinine Glucose POC Glucose (mg/dL) 155 H 136 H Hemoglobin A1c Iron Transferrin Alkaline Phosphatase Troponin I HDL Cholesterol Procalcitonin RSV (PCR) 09/03/23 09/03/23 02:51 10:07 WBC RBC Hgb Hct Neutrophils # APTT 61.6 H D-Dimer Sodium 136 L Chloride Carbon Dioxide BUN 57 H Creatinine 1.83 H Glucose POC Glucose (mg/dL) Hemoglobin A1c Iron Transferrin Alkaline Phosphatase Troponin I HDL Cholesterol Procalcitonin RSV (PCR) - Diagnostic Findings Chest x-ray: image reviewed (As noted in HPI, suspicious for left lower lobe infiltrate/pneumonia) Assessment and Plan Assessment: Impression: Acute hypoxic respiratory failure Acute RSV tracheobronchitis Acute community-acquired pneumonia, superimposed on RSV infection Acute reactive bronchospasm or possible underlying COPD with acute exacerbation Acute Systolic congestive heart failure is in the differential, but not felt to be so at this time. Elevated d-dimer but negative venous Doppler and the clinical history is not a clinical history of thromboembolic disease/pulmonary embolism Acute on chronic kidney disease Benign essential hypertension History of CVA History of PTSD Recommendation: Agree with the present treatment plan Continue BiPAP for now 08/26/40% Patient will definitely improve with Solu-Medrol considering his clinical findings Continue bronchodilators and I added Pulmicort updrafts Continue cardiac meds Continue diuretics patient is on Lasix 40 mg IV push daily continue DuoNeb We will continue to follow. Time with Patient: Greater than 30
--- NOTE | 2023-09-03 15:53 | XR ---
EXAMINATION TYPE: XR chest 1V portable DATE OF EXAM: 09/03/2023 COMPARISON: 09/02/2023 HISTORY: Hypoxia TECHNIQUE: Single frontal view of the chest is obtained. FINDINGS: Bilateral perihilar changes with subsegmental changes at the lung bases and small bilatera l pleural effusion. No pneumothorax. There is stable widening of the right AC joint and arthropathy o f the left. Diffuse osteopenia. Degenerative changes of the spine. IMPRESSION: Bilateral perihilar and lower lobe infiltrates correlate for infectious etiology otherwi se consider mild CHF.
[2023-09-03 16:37] LABS: Glucose,Whole Blood 150 mg/dL (70-110)
[2023-09-03] MEDS: methylPREDNISolone SOD SUCCI 125 MG/2 ML VIAL IV SCH (17:11)
[2023-09-03] MEDS: TAMSULOSIN 0.4 MG CAP.ER.24H PO SCH (17:11)
[2023-09-03 20:18] LABS: Glucose,Whole Blood 112 mg/dL (70-110)
[2023-09-03] MEDS: ATORVASTATIN 80 MG TAB PO SCH (20:43)
[2023-09-03] MEDS: INSULIN DETEMIR (LEVEMIR) 100 UNIT/ML SYR SQ SCH (20:43)
[2023-09-03] MEDS: BUDESONIDE 1 MG/2 ML NEBU INHALATION SCH (21:24)
[2023-09-04] MEDS: methylPREDNISolone SOD SUCCI 125 MG/2 ML VIAL IV SCH ×4 (00:16→17:10)
[2023-09-04] MEDS: ASPIRIN 81 MG PO SCH (05:32)
[2023-09-04] MEDS: carvediloL 6.25 MG TAB PO SCH ×2 (05:32→17:10)
[2023-09-04] MEDS: PANTOPRAZOLE 40 MG TABLET PO SCH (05:32)
[2023-09-04] MEDS: CLOPIDOGREL 75 MG TAB PO SCH (05:32)
[2023-09-04] MEDS: FINASTERIDE 5 MG TAB PO SCH (05:32)
[2023-09-04 06:25] LABS: Glucose,Whole Blood 156 mg/dL (70-110)
[2023-09-04] MEDS: INSULIN ASPART (NovoLOG) 100 UNIT/ML VIAL SQ SCH ×7 (06:32→21:12)
[2023-09-04 08:36] LABS: HGB 10.5 gm/dL (13.0-17.5); MCH 29.5 pg (25.0-35.0); MCHC 33.8 g/dL (31.0-37.0); MCV 87.3 fL (80.0-100.0); Mean Platelet Volume 8.2; Platelet Count 187 k/uL (150-450); RBC 3.55 m/uL (4.30-5.90); WBC 5.8 k/uL (3.8-10.6)
[2023-09-04] MEDS: NITROGLYCERIN OINT 1 INCH/GM PACKET TOPICAL SCH (09:03)
[2023-09-04] MEDS: FUROSEMIDE 10 MG/ML 4 ML VIAL IV SCH (09:03)
[2023-09-04] MEDS: SODIUM FERRIC GLUCONAT-SUCROSE 125 MG in SODIUM CHLORIDE 0.9% 100 ML IVPB SCH (09:04)
[2023-09-04] MEDS: BUDESONIDE 1 MG/2 ML NEBU INHALATION SCH ×2 (09:24→21:26)
[2023-09-04] MEDS: IPRATROPIUM-ALBUTEROL 3 ML NEB INHALATION SCH ×4 (09:25→21:26)
[2023-09-04 09:36] LABS: African American GFR (CKD) 50 (>60 ml/min/1.73 sqM); Anion Gap 12 mmol/L; Blood Urea Nitrogen 53 mg/dL (9-20); Calcium 8.2 mg/dL (8.4-10.2); Carbon Dioxide 22 mmol/L (22-30); Chloride 102 mmol/L (98-107); Glucose 158 mg/dL (74-99); Non-African American GFR(CKD) 44 (>60 ml/min/1.73 sqM); Potassium 4.3 mmol/L (3.5-5.1); Sodium 136 mmol/L (137-145)
--- NOTE | 2023-09-04 10:37 | P.PN ---
Subjective Patient is seen in follow-up for chronic kidney disease. Renal function better. Currently on BiPAP. On IV Lasix. Vital signs are stable. General: No acute distress. HEENT: Head exam is unremarkable. On BiPAP. LUNGS: No audible rhonchi or wheezes. HEART: Rate and Rhythm are regular. ABDOMEN: No distention. EXTREMITITES: No edema. Objective - Vital Signs Vital signs: Vital Signs Temp 97.3 F L 09/04/23 04:00 Pulse 60 09/04/23 09:38 Resp 25 H 09/04/23 04:00 BP 138/64 09/04/23 04:00 Pulse Ox 96 09/04/23 04:00 FiO2 40 09/04/23 09:25 Intake & Output 09/03/23 09/04/23 09/04/23 18:59 06:59 18:59 Intake Total 300.116 194.002 Output Total 1600 550 Balance -1299.884 -550 194.002 Intake: Intake, IV Titration 60.116 194.002 Amount Heparin Sod,Pork in 0.45% 60.116 194.002 NaCl 25,000 unit In 0.45 % NaCl 1 250ml.bag @ 10. 498 UNITS/KG/HR 10 mls/hr IV .Q24H [facility] Rx#: [id number] Oral 240 Output: Urine 1600 550 Other: Voiding Method Toilet Toilet Urinal Urinal # Voids 2 - Labs CBC & Chem 7: 09/04/23 08:02 09/04/23 08:02 Labs: Abnormal Lab Results - Last 24 Hours (Table) 09/03/23 09/03/23 09/03/23 Range/Units 10:07 16:36 20:17 RBC (4.30-5.90) m/uL Hgb (13.0-17.5) gm/dL Hct (39.0-53.0) % APTT 61.6 H (22.0-30.0) sec Sodium (137-145) mmol/L BUN (9-20) mg/dL Creatinine (0.66-1.25) mg/dL Glucose (74-99) mg/dL POC Glucose (mg/dL) 150 H 112 H (70-110) mg/dL Calcium (8.4-10.2) mg/dL 12/09/04/23 09/04/23 Range/Units 06:24 08:02 08:02 RBC 3.55 L (4.30-5.90) m/uL Hgb 10.5 L (13.0-17.5) gm/dL Hct 31.0 L (39.0-53.0) % APTT 163.9 H* (22.0-30.0) sec Sodium (137-145) mmol/L BUN (9-20) mg/dL Creatinine (0.66-1.25) mg/dL Glucose (74-99) mg/dL POC Glucose (mg/dL) 156 H (70-110) mg/dL Calcium (8.4-10.2) mg/dL 09/04/23 Range/Units 08:02 RBC (4.30-5.90) m/uL Hgb (13.0-17.5) gm/dL Hct (39.0-53.0) % APTT (22.0-30.0) sec Sodium 136 L (137-145) mmol/L BUN 53 H (9-20) mg/dL Creatinine 1.50 H (0.66-1.25) mg/dL Glucose 158 H (74-99) mg/dL POC Glucose (mg/dL) (70-110) mg/dL Calcium 8.2 L (8.4-10.2) mg/dL Assessment and Plan Plan: Assessment: 1. Chronic kidney disease stage IIIB secondary to diabetic kidney disease with baseline creatinine 1.6-1.8. GFR near baseline. No hydronephrosis noted on kidney ultrasound. 2. Acute hypoxic respiratory failure. 3. Acute RSV infection. 4. History of coronary artery disease with prior stenting. 5. Diabetes mellitus. 6. Chronic systolic CHF with ejection fraction of 35-40%. 7. Anemia of chronic kidney disease. Iron deficiency noted. 8. Non-ST elevated myocardial infarction. Cardiology following. Plan: Maintain IV Lasix for now. Maintain IV iron. Encouraged oral intake. Avoid nephrotoxins. Discussed with patient the risk of worsening renal function, potentially requiring renal replacement therapy, post-IV contrast exposure. Patient understands. Avoid IV hydration as patient is hypervolemic.
[2023-09-04] MEDS: AZITHROMYCIN 500 MG in SODIUM CHLORIDE 0.9% 250 ML IVPB SCH (11:22)
[2023-09-04 11:36] LABS: Glucose,Whole Blood 162 mg/dL (70-110)
[2023-09-04] MEDS ORDERED: ATORVASTATIN 80 MG TAB PO STA (11:58)
[2023-09-04] MEDS ORDERED: NITROGLYCERIN SL TABS 0.4 MG TAB SUBLINGUAL PRN (11:58)
[2023-09-04] MEDS ORDERED: ASPIRIN 325 MG TAB PO STA (11:58)
[2023-09-04] MEDS ORDERED: LIDOCAINE 1% INJ 10MG/ML (20 ML MDV) ONE (12:09)
[2023-09-04] MEDS ORDERED: fentaNYL (PF) 50 MCG/ML 2 ML AMP ONE (12:24)
[2023-09-04] MEDS ORDERED: IV FLUID CONTINUATION 1,000 ML IV ONE (12:26)
[2023-09-04] MEDS ORDERED: LIDOCAINE 1% INJ 10MG/ML (20 ML MDV) SQ ONE (12:42)
[2023-09-04] MEDS: MIDAZOLAM 2 MG/2 ML VIAL IVP ONE ×2 (12:42→12:47)
[2023-09-04] MEDS ORDERED: fentaNYL (PF) 50 MCG/1 ML VIAL IVP ONE (12:42)
[2023-09-04] MEDS ORDERED: IOPAMIDOL-370 100ML BTL INJ ONE (13:07)
[2023-09-04] MEDS: HEPARIN SOD,PORK IN 0.45% NACL 25,000 UNIT in 0.45% NACL 1 250ML.BAG IV SCH (13:22)
[2023-09-04] MEDS: SODIUM CHLORIDE 0.9% 1,000 ML in EMPTY BAG 1 BAG IV SCH ×2 (13:22→21:30)
--- NOTE | 2023-09-04 13:30 | P.PN ---
Subjective Progress Note Date: 09/04/23 The patient is an 82-year-old male with a PMH of type II DM, hypertension, hyperlipidemia who had presented to the emergency room with complaints of chest pain. In the ED, patient underwent extensive evaluation: Vital signs Tmax 101.6F, HR 113, RR 32, BP 182/96, 90% on 15L Non rebreather. CBC WBC 13, Hg 12.7. D-Dimer 2.13. APTT 21.7. CMP Na 136, BUN 41, Cr 1.7, glu 210, alk phos 174. Troponin 0.013. RSV + CXR bibasilar PNA Repeat troponin 4.65, 5.36. EKG showed a new LBBB. Started on Heparin drip and Cardiology consulted. Initially, plans for cardiac cath 08/31. 08/31 Cardiac cath cancelled due to worsening renal function. Maintained on heparin drip. 09/01 Cardiac cath cancelled due to worsening renal function. Maintained on heparin drip. Started on Levemir 10 units QHS and Novolog 3 units TID. 09/02 Cardiac cath cancelled due to worsening renal function. Much more short of breath today with ronchi bilaterally. STAT CXR ordered shows pulmonary vascular congestion. Started on BiPAP. Maintained on heparin drip. Increased Levemir to 20 units QHS and Novolog to 7 units TID. Nephrology consulted for CKD, patient aware cardiac cath may lead to worsening renal failure and need for HD. Echo shows EF 35-40% with mid to distal anteroseptal, anterior wall and anterio- apical hypokinesis. Renal US shows 6 mm hyperechoic focus with small amount of perinephric fluid. 09/03 Cardiac cath cancelled due to worsening renal function and respiratory status. Maintained on BiPAP. Desaturates into the 70s when not on BiPAP. Started on Lasix 40 mg IV QD for possible CHF exacerbation and Rocephin/Azithromycin for concerns of superimposed bacterial PNA. Procal 0.57. Pulmonology consulted. 09/04 Patient was seen and examined. Sleeping. Maintained on BiPAP. CXR shows bilateral pleural effusion similar to previous CXR. Maintained on Lasix 40 mg IV QD. Pulmonology consulted, added Solumedrol, Pulmicort in addition to DuoNeb. Antibiotics include Rocephin and Azithromycin. CBC Hg 10.5. APTT 163.9. BMP Na 136, BUN 53, Cr 1.5, glu 158, Ca 8.2. General: non toxic, mild distress, appears at stated age, on BiPAP Derm: warm, dry Head: atraumatic, normocephalic, symmetric Eyes: EOMI, no lid lag, anicteric sclera Cardiovascular: S1S2 reg, no murmur Lungs: Ronchi bilaterally , no accessory muscle use Ext: no gross muscle atrophy, no edema, no contractures Neuro: no focal neuro deficits Psych: Alert, oriented, appropriate affect Based on my assessment of this patient, this patient meets a high complexity level of care. Patient has an acute diagnosis of NSTEMI that poses a threat to life or bodily function. Acute hypoxic failure: Likely CHF exacerbation worsened with RSV. Concerns for superimposed bacterial PNA. Pro-yusef elevated. Lasix IV as below. Rocephin 1 g IV QD and Azithromyin 500 mg IV QD. Solumedrol 60 mg IV Q6H. Pulmicort INH BID. Pulmonolgy on board. Supplemental O2 to maintain O2 saturation > 92%. Systolic CHF exacerbation: Lasix 40 mg IV QD. Strict intake/outtake. Daily giuliano ghts. NSTEMI: ASA 81 mg PO QD. Plavix 75 mg PO QD. Coreg 6.25 mg PO BID. Lipitor 80 mg PO QHS. Nitro topical. Heparin drip at 7.35 units/kg/hr. Echo as above, severely reduced EF compared to 09/2022 Echo now with hypokinetic wall motion. Telemetry monitoring. Cardiology on board. Plans for cardiac cath when clinically stable. RSV laryngeobronchitis: Symptomatic management. Elevated D-Dimer: No DVT. ZOEY on CKD: Monitor. Hold Lisinopril. Renal and bladder US as above. Nephrology consulted. DM with hyperglycemia: Levemir 20 units QHS and Novolog 7 units TID. ISS. Accuchecks ACHS. Hypoglycemic precautions. Normocytic anemia: Stable. 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 No active signs of bleeding. Chronic conditions: Hypertension, history of CVA, PTSD/depression CODE STATUS: FULL CODE DVT Prophylaxis: Heparin drip. GI Prophylaxis: Protonix PO. Designated medical POA if patient is not able to make medical decisions for themselves: I have reviewed the following field service consultant notes: Cardiology, Nephro, Pulm note. I have reviewed the results of the following tests: CBC, BMP. I have ordered the following tests: CBC, BMP. I have discussed the care of this patient with the following independent histo liliana: I have independently interpreted the following test below: CXR as above. I have discussed the management of this patient with the following physician: This patient has a high risk of morbidity due to the following reasons: Patient requires IV heparin which requires intensive monitoring for toxicity (coag panel) and bleeding. Patient requires IV lasix which requires intensive monitoring for renal toxicitiy. Objective - Vital Signs Vital signs: Vital Signs Temp 97.8 F 09/04/23 11:33 Pulse 64 09/04/23 11:33 Resp 18 09/04/23 11:33 BP 149/67 09/04/23 11:33 Pulse Ox 99 09/04/23 11:33 FiO2 40 09/04/23 12:01 Intake & Output 09/03/23 09/04/23 09/04/23 18:59 06:59 18:59 Intake Total 300.116 244.002 Output Total 1600 550 650 Balance -1299.884 -550 -405.998 Intake: IV 50 Intake, IV Titration 60.116 194.002 Amount Heparin Sod,Pork in 0.45% 60.116 194.002 NaCl 25,000 unit In 0.45 % NaCl 1 250ml.bag @ 10. 498 UNITS/KG/HR 10 mls/hr IV .Q24H [facility] Rx#: [id number] Oral 240 Output: Urine 1600 550 650 Other: Voiding Method Toilet Toilet Toilet Urinal Urinal Urinal # Voids 2 - Labs CBC & Chem 7: 09/04/23 08:02 09/04/23 08:02 Labs: Abnormal Lab Results - Last 24 Hours (Table) 09/03/23 09/03/23 09/04/23 Range/Units 16:36 20:17 06:24 RBC (4.30-5.90) m/uL Hgb (13.0-17.5) gm/dL Hct (39.0-53.0) % APTT (22.0-30.0) sec Sodium (137-145) mmol/L BUN (9-20) mg/dL Creatinine (0.66-1.25) mg/dL Glucose (74-99) mg/dL POC Glucose (mg/dL) 150 H 112 H 156 H (70-110) mg/dL Calcium (8.4-10.2) mg/dL 09/04/23 09/04/23 09/04/23 Range/Units 08:02 08:02 08:02 RBC 3.55 L (4.30-5.90) m/uL Hgb 10.5 L (13.0-17.5) gm/dL Hct 31.0 L (39.0-53.0) % APTT 163.9 H* (22.0-30.0) sec Sodium 136 L (137-145) mmol/L BUN 53 H (9-20) mg/dL Creatinine 1.50 H (0.66-1.25) mg/dL Glucose 158 H (74-99) mg/dL POC Glucose (mg/dL) (70-110) mg/dL Calcium 8.2 L (8.4-10.2) mg/dL 09/04/23 Range/Units 11:32 RBC (4.30-5.90) m/uL Hgb (13.0-17.5) gm/dL Hct (39.0-53.0) % APTT (22.0-30.0) sec Sodium (137-145) mmol/L BUN (9-20) mg/dL Creatinine (0.66-1.25) mg/dL Glucose (74-99) mg/dL POC Glucose (mg/dL) 162 H (70-110) mg/dL Calcium (8.4-10.2) mg/dL
[2023-09-04] MEDS ORDERED: RX INFO: IV CONTRAST WAS GIVEN 1 EACH MISC MISCELLANE PRN (13:40)
--- NOTE | 2023-09-04 13:40 | P.CARDCATH ---
Date of Procedure: 09/04/23 Description of Procedure: DIAGNOSTIC CORONARY ANGIOGRAPHY and LEFT HEART CATH REPORT PROCEDURES PERFORMED: Left heart catheterization Selective coronary angiography Moderate conscious sedation 28 mins Right common femoral access Right common femoral arteriogram Angioseal Closure INDICATION: NSTEMI 82-year-old male presented to the hospital with negative troponins trended up to 5.8. He also had concerns of acute congestive heart failure with RSV pneumonia CONSENT: I have discussed the risks, benefits and alternative therapies for the above-mentioned procedure, sedation/analgesia and necessary blood product administration (if indicated, as they pertain to this patient). The patient has indicated understanding and acceptance of the risks and procedures discussed. Conscious Sedation: Patient's ECG, heart rate, blood pressure, pulse oximetry was monitored throughout the duration of procedure under the direct supervision. [1] mg Versed and [50] mg Fentanyl were used for induction of moderate conscious sedation. Total duration of 28 minutes. PROCEDURE:After the risks, benefits and alternatives of the above mentioned procedure explained in detail with the patient, informed consent was obtained. Patient was taken to the catheterization lab and prepped and draped in usual sterile fashion. Ultrasound was used to identify the right common femoral artery. 1% lidocaine was infiltrated over the right common femoral artery. Using ultrasound arterial access was obtained using micropuncture needle. A 6-Malay sheath was placed in the right radial artery using modified Seldinger technique. J tipped wire was advanced under fluoroscopic guidance. Over the wire JL4 diagnostic catheter was advanced. Wire was removed, catheter was flushed and manipulated under fluoroscopy to selectively engaged the left coronary ostium. Left coronary angioplasty was performed in different angiographic projections. This catheter was exchanged for a JR4 diagnostic catheter over the wire. The catheter was flushed and manipulated to cross the aortic valve. LV pressures were obtained. Pullback was performed across aortic valve and catheter was manipulated to selectively engage the right coronary ostium under fluoroscopic guidance. Right coronary angiography was performed in different angiographic projections. Catheter was removed over the wire. Femoral sheath was flushed. Angioseal closure device was used to close the arteriotomy site. Appropriate patent hemostasis was achieved. The patient tolerated the procedure well. Patient was transported back to the post catheterization holding area in stable condition. Angiographic images were reviewed in detail. HEMODYNAMICS: Aortic Pressure: 130/50 mmHg. LV pressure: 130/6 mmHg. LVEDP 23 mmHg. SELECTIVE CORONARY ARTERIOGRAPHY: LEFT MAIN: The left main trifurcates into the LAD, Ramus and circumflex. Distal left main appears to have 70-80% disease LEFT ANTERIOR DESCENDING CORONARY ARTERY: 100% chronic occlusion at ostium. Right to left collaterals filling LAD retrogradely. LEFT CIRCUMFLEX CORONARY ARTERY: It is nondominant vessel. Ostial LCx is 10-20% luminal irregularities. It gives rise to OM1 which is a small caliber vessel and is approximately 80% diffuse disease in proximal segment. OM 2 is a small caliber and has diffuse 20% luminal irregularities. RAMUS: Large caliber has 10-20% diffuse luminal irregularities. RIGHT CORONARY ARTERY: Dominant vessel. The right coronary artery is a large caliber vessel which gives PDA and PLV branch. Mid and distal RCA has mild luminal irregularities. Ostial and proximal PDA has a 80-90% stenosis. Distal PDA has diffuse 30-40% disease. IMPRESSION: 70-80% Distal LM disease 100% Ostial LAD, faint right to left collaterals 80%-90% Ostial PDA 80% Proximal OM1 Mildly elevated left sided filling pressures PLAN: Medical management Surgical consult 75 cc fluids for 6 hours Performing Physician Jhon Gonzáles MD
[2023-09-04] MEDS ORDERED: SODIUM CHLORIDE 0.9% 1,000 ML IV SCH (13:45)
--- NOTE | 2023-09-04 14:22 | P.PN ---
Subjective Progress Note Date: 09/04/23 This is an 82-year-old white male with history of multiple medical problems including CVA, TIA, type 2 diabetes, hypertension, previous TX, patient was actually admitted on 08/30/2023, admitted with the chief complaint of shortness of breath and cough. Patient tested positive for RSV on his admission, and chest x-ray showed bibasilar opacities. Patient was also complaining of acute onset chest pain, and he was noted to have elevated troponin. Cardiology saw the patient, and felt that the patient has ischemic cardiomyopathy, in addition he had RSV acute tracheobronchitis/URI secondary to RSV, pro-calcitonin level was also elevated, and patient has been receiving antibiotics in the form of Rocephin and Zithromax. Patient also developed worsening kidney disease, he is known to have history of stage IIIB chronic kidney disease, baseline creatinine is in the range of 1.6-1.8, but considering his worsening renal functioning, patient was seen by nephrology on consultation, and recommended mostly encouraging oral intakes, and avoiding nephrotoxins as well as iron studies. Patient is also now being considered for possible cardiac catheterization. He does have ischemic cardiomyopathy with LV dysfunction and ejection fraction of 35-40%. According to the patient is a lifelong nonsmoker, but during my evaluation the patient had diffuse rhonchi and wheezing bilaterally. Patient has been almost BiPAP dependent with IPAP of 12 and EPAP of 6 and 40% FiO2, does not feel well when he gets switched to nasal cannula continues to have intermittent episodes of cough wheezing and shortness of breath. Again the patient has no previous history of COPD and he had no review a smoking history according to the patient. Chest x-ray from yesterday showed left lower lobe atelectasis, possible pneumonia, no evidence of congestive heart failure. Again his pro-calcitonin level was noted in the range of 0.5 7. The patient is seen today 09/04/2023 in follow-up on the selective care unit. He is currently resting comfortably in bed. Awake and alert in no acute distress. He is improved today compared to yesterday. Currently off the BiPAP and maintaining O2 saturations in the 90s on 6 L/m per nasal cannula. He's been afebrile. Hemodynamically stable. He did undergo cardiac catheterization today which did reveal a 70-80% distal left main disease, 100% ostial LAD occlusion with faint right to left collaterals, 80-90% ostial PDA, 80% proximal OM1 occlusion. Current plan is to treat medically with a surgical consultation. White count 5.8. Hemoglobin 10.5. Platelets 187. Sodium 136. Potassium 4.3. Bicarb 22. BUN 53. Creatinine 1.50. He remains on a heparin drip. Continued on bronchodilators, Solu-Medrol. He is on IV diuretics. Currently in a -1.8 L balance. He remains on ceftriaxone. Completed azithromycin. Objective - Vital Signs Vital signs: Vital Signs Temp 97.8 F 09/04/23 11:33 Pulse 64 09/04/23 11:33 Resp 18 09/04/23 11:33 BP 149/67 09/04/23 11:33 Pulse Ox 99 09/04/23 11:33 FiO2 40 09/04/23 12:01 Intake & Output 09/03/23 09/04/23 09/04/23 18:59 06:59 18:59 Intake Total 300.116 244.002 Output Total 1600 550 650 Balance -1299.884 -550 -405.998 Intake: IV 50 Intake, IV Titration 60.116 194.002 Amount Heparin Sod,Pork in 0.45% 60.116 194.002 NaCl 25,000 unit In 0.45 % NaCl 1 250ml.bag @ 10. 498 UNITS/KG/HR 10 mls/hr IV .Q24H [facility] Rx#: [id number] Oral 240 Output: Urine 1600 550 650 Other: Voiding Method Toilet Toilet Toilet Urinal Urinal Urinal # Voids 2 - Exam GENERAL EXAM: Alert, 82-year-old gentleman, resting in bed, on 6 L nasal cannula, comfortable in no apparent distress. HEAD: Normocephalic. EYES: Normal reaction of pupils, equal size. NOSE: Clear with pink turbinates. THROAT: No erythema or exudates. NECK: No masses, no JVD. CHEST: No chest wall deformity. LUNGS: Equal air entry with crackles in the bilateral bases. CVS: S1 and S2 normal with no audible murmur, regular rhythm. ABDOMEN: No hepatosplenomegaly, normal bowel sounds, no guarding or rigidity. SPINE: No scoliosis or deformity SKIN: No rashes CENTRAL NERVOUS SYSTEM: No focal deficits, tone is normal in all 4 extremities. EXTREMITIES: There is no peripheral edema. No clubbing, no cyanosis. Peripheral pulses are intact. - Labs CBC & Chem 7: 09/04/23 08:02 09/04/23 08:02 Labs: Abnormal Lab Results - Last 24 Hours (Table) 09/03/23 09/03/23 09/04/23 Range/Units 16:36 20:17 06:24 RBC (4.30-5.90) m/uL Hgb (13.0-17.5) gm/dL Hct (39.0-53.0) % APTT (22.0-30.0) sec Sodium (137-145) mmol/L BUN (9-20) mg/dL Creatinine (0.66-1.25) mg/dL Glucose (74-99) mg/dL POC Glucose (mg/dL) 150 H 112 H 156 H (70-110) mg/dL Calcium (8.4-10.2) mg/dL 09/04/23 09/04/23 09/04/23 Range/Units 08:02 08:02 08:02 RBC 3.55 L (4.30-5.90) m/uL Hgb 10.5 L (13.0-17.5) gm/dL Hct 31.0 L (39.0-53.0) % APTT 163.9 H* (22.0-30.0) sec Sodium 136 L (137-145) mmol/L BUN 53 H (9-20) mg/dL Creatinine 1.50 H (0.66-1.25) mg/dL Glucose 158 H (74-99) mg/dL POC Glucose (mg/dL) (70-110) mg/dL Calcium 8.2 L (8.4-10.2) mg/dL 09/04/23 Range/Units 11:32 RBC (4.30-5.90) m/uL Hgb (13.0-17.5) gm/dL Hct (39.0-53.0) % APTT (22.0-30.0) sec Sodium (137-145) mmol/L BUN (9-20) mg/dL Creatinine (0.66-1.25) mg/dL Glucose (74-99) mg/dL POC Glucose (mg/dL) 162 H (70-110) mg/dL Calcium (8.4-10.2) mg/dL Assessment and Plan Assessment: Acute hypoxic respiratory failure secondary to a combination of acute RSV tracheobronchitis, acute community-acquired pneumonia, acute reactive bronchospasm or possible underlying COPD with acute exacerbation Acute exacerbation of systolic congestive heart failure with an ejection fraction of 35-40% with mid to distal anteroseptal, anterior wall hypokinesia. Anterior apical hypokinesia. He did undergo cardiac catheterization today 09/04/2023 which did reveal a 70-80% distal left main disease, 100% ostial LAD occlusion with faint right to left collaterals, 80-90% ostial PDA, 80% proximal OM1 occlusion. Current plan is to treat medically with a surgical consultation. Acute on chronic kidney disease Benign essential hypertension History of CVA History of PTSD Plan: The patient was seen and evaluated Cardiac catheterization, labs and medications reviewed Surgical consult with CT services Continue bronchodilators, steroids Continue antibiotics Continue IV diuretics Titrate the FiO2 as tolerated We will continue to follow I have personally seen and examined the patient, performed the documentation and the assessment and plan as written. Number of minutes spent on the visit: 10.
[2023-09-04 16:24] LABS: Glucose,Whole Blood 237 mg/dL (70-110)
--- NOTE | 2023-09-04 16:34 | P.GSCN ---
History of Present Illness Consult date: 09/04/23 Reason for Consult: Triple vessel coronary artery disease, non-STEMI Requesting physician: Bear Nleson History of present illness: This is an 82-year-old gentleman who follows outpatient with the [facility] for primary care and Dr. Nelson for cardiology. He has a previous medical history of coronary artery disease with previous myocardial infarction and drug-eluting stent to the LAD in September 2022, hypertension, hyperlipidemia, insulin- dependent diabetes, chronic kidney disease stage IIIB, CVA in 2021, covid in September 2022, PTSD/depression, previous tobacco dependence, and family history of coronary artery disease. This gentleman had been experiencing chest pain and shortness of breath for approximately 2 days. His chest pain continued to increase in intensity, and his shortness of breath he came so severe that only called EMS. The patient did endorse coughing but no sputum, and denied any fever. He is brought to [facility] emergency room, found to be in respiratory distress and placed on BiPAP. EKG completed demonstrated sinus rhythm with first-degree AV block and left bundle branch block. Chest x-ray demonstrated basal or atelectasis versus pneumonia. He was found to be positive for RSV, WBC was 13, d-dimer was elevated, BUN 41, creatinine 1.7, BNP was 1470, initial troponin was 0.013 but did elevated as high as 5.36 and patient was ruled in for non-STEMI. He was admitted for evaluation and treatment with consultation placed to cardiology as well as nephrology and pulmonology. The patient was initiated on IV antibiotics and placed on steroids per pulmonology. He did undergo transthoracic echocardiogram which demonstrated reduced left ventricular systolic function with EF for 35-40%, anterior wall hypokinesia, mild aortic stenosis and mild mitral regurgitation. Today he was taken for heart catheterization which revealed distal left main 70-80% stenosis, ostial L AD stenosis 100%, ostial PDA stenosis 80-90%, and first obtuse marginal branch 80%. Due to these findings consultation was placed to cardiac thoracic surgery for surgical revascularization recommendations. Review of Systems Review of systems was completed and was negative except as noted although was a bit difficult to get from the patient as he was on BiPAP - Cardiovascular Reports as per HPI, Reports chest pain, Reports shortness of breath - Respiratory Reports cough Past Medical History Past Medical History: Coronary Artery Disease (CAD), Chest Pain / Angina, CVA/TIA, Diabetes Mellitus, Hearing Disorder / Deafness, Hyperlipidemia, Hypertension, Myocardial Infarction (ND) Additional Past Medical History / Comment(s): Stroke in December of 2021; covid 09/2022 Last Myocardial Infarction Date:: 10/03/22 History of Any Multi-Drug Resistant Organisms: None Reported Past Surgical History: Heart Catheterization With Stent, Orthopedic Surgery Additional Past Surgical History / Comment(s): Urethral surgery-unsure of date Past Anesthesia/Blood Transfusion Reactions: No Reported Reaction Date of Last Stent Placement:: 10/03/2022 Past Psychological History: No Psychological Hx Reported, Depression, PTSD Smoking Status: Former smoker Past Alcohol Use History: None Reported Past Drug Use History: None Reported - Past Family History Father Family Medical History: Hypertension Medications and Allergies Home Medications Medication Instructions Recorded Confirmed Type Aspirin [Taney Aspirin EC] 81 mg PO DAILY 10/03/22 08/30/23 History Atorvastatin Calcium [Lipitor] 80 mg PO HS 10/03/22 08/30/23 History Carboxymethylcellulose Sodium 1 drop BOTH EYES QID 10/03/22 08/30/23 History [Thera Tears] Finasteride [Proscar] 5 mg PO DAILY 10/03/22 08/30/23 History Insulin Glargine,Hum.rec.anlog 35 units SQ DAILY 10/03/22 08/30/23 History [Insulin Glargine Solostar] Magnesium Oxide 400 mg PO BID 10/03/22 08/30/23 History Omeprazole [PriLOSEC] 20 mg PO DAILY 10/03/22 08/30/23 History Sennosides/Docusate Sodium [Senna 1 tab PO DAILY PRN 10/03/22 08/30/23 History Plus 8.6-50 mg Tablet] Tamsulosin HCl [Flomax] 0.4 mg PO BID 10/03/22 08/30/23 History glipiZIDE [Glucotrol] 20 mg PO AC-BID 10/03/22 08/30/23 History Clopidogrel [Plavix] 75 mg PO DAILY #90 tab 10/07/22 08/30/23 Rx Nitroglycerin Sl Tabs [Nitrostat] 0.4 mg SL Q5M PRN 11/05/22 08/30/23 History Furosemide [Lasix] 40 mg PO DAILY #30 tablet 11/08/22 08/30/23 Rx carvediloL [Coreg] 6.25 mg PO BID-W/MEALS #60 tab 11/08/22 08/30/23 Rx DULoxetine HCL [Cymbalta] 60 mg PO DAILY 08/30/23 08/30/23 History Empagliflozin [Jardiance] 25 mg PO DAILY 08/30/23 08/30/23 History Isosorbide Mononitrate ER [Imdur] 30 mg PO DAILY 08/30/23 08/30/23 History Levothyroxine Sodium [Synthroid] 25 mcg PO DAILY 08/30/23 08/30/23 History Mv-Min/Folic/K1/Lycopen/Lutein 1 tab PO DAILY 08/30/23 08/30/23 History [Centrum Silver Men Tablet] lisinopriL [Zestril] 10 mg PO DAILY 08/30/23 08/30/23 History Allergies Allergy/AdvReac Type Severity Reaction Status Date / Time No Known Allergies Allergy Verified 08/30/23 12:47 Surgical - Exam Vital Signs Temp Pulse Resp BP Pulse Ox 101.6 F H 113 H 32 H 182/96 90 L 08/30/23 01:01 08/30/23 01:01 08/30/23 01:01 08/30/23 01:01 08/30/23 01:01 CONSTITUTIONAL: Awake and alert, appears comfortable, cooperative, no acute distress EYES: Pupils equal, round, reactive to light, normal ocular movement ENT: Moist mucous membranes without oral lesions present NECK: No masses, no bruits, trachea midline RESPIRATORY: Lungs sounds with expiratory wheezes bilaterally. Respirations even, nonlabored. Currently on BiPap, FiO2 40%, IPAP 12, EPAP 6 CARDIOVASCULAR: S1, S2 present. Regular rate and rhythm, sinus rhythm on telemetry. Palpable peripheral pulses bilaterally. No edema present. No calf pain or tenderness noted GASTROINTESTINAL: Abdomen soft, nontender, nondistended without masses or organomegaly noted. There is no rebound or guarding present. Active bowel sounds present 4 quadrants. GENITOURINARY: Deferred INTEGUMENTARY: Skin is warm and dry. Right groin soft without redness or drainage NEUROLOGIC: Cranial nerves II through XII intact, normal coordination MUSKULOSKELETAL: Able to move all extremities, strength equal bilaterally, normal posture PSYCHIATRIC: Alert and oriented to person place and time Results - Labs 09/05/23 06:50 09/05/23 06:50 Abnormal Lab Results - Last 24 Hours (Table) 09/03/23 09/03/23 09/04/23 Range/Units 16:36 20:17 06:24 RBC (4.30-5.90) m/uL Hgb (13.0-17.5) gm/dL Hct (39.0-53.0) % APTT (22.0-30.0) sec Sodium (137-145) mmol/L BUN (9-20) mg/dL Creatinine (0.66-1.25) mg/dL Glucose (74-99) mg/dL POC Glucose (mg/dL) 150 H 112 H 156 H (70-110) mg/dL Calcium (8.4-10.2) mg/dL 09/04/23 09/04/23 09/04/23 Range/Units 08:02 08:02 08:02 RBC 3.55 L (4.30-5.90) m/uL Hgb 10.5 L (13.0-17.5) gm/dL Hct 31.0 L (39.0-53.0) % APTT 163.9 H* (22.0-30.0) sec Sodium 136 L (137-145) mmol/L BUN 53 H (9-20) mg/dL Creatinine 1.50 H (0.66-1.25) mg/dL Glucose 158 H (74-99) mg/dL POC Glucose (mg/dL) (70-110) mg/dL Calcium 8.2 L (8.4-10.2) mg/dL 09/04/23 Range/Units 11:32 RBC (4.30-5.90) m/uL Hgb (13.0-17.5) gm/dL Hct (39.0-53.0) % APTT (22.0-30.0) sec Sodium (137-145) mmol/L BUN (9-20) mg/dL Creatinine (0.66-1.25) mg/dL Glucose (74-99) mg/dL POC Glucose (mg/dL) 162 H (70-110) mg/dL Calcium (8.4-10.2) mg/dL Diabetes panel 09/04/23 Range/Units 08:02 Sodium 136 L (137-145) mmol/L Potassium 4.3 (3.5-5.1) mmol/L Chloride 102 (98-107) mmol/L Carbon Dioxide 22 (22-30) mmol/L BUN 53 H (9-20) mg/dL Creatinine 1.50 H (0.66-1.25) mg/dL Glucose 158 H (74-99) mg/dL Calcium 8.2 L (8.4-10.2) mg/dL Calcium panel 09/04/23 Range/Units 08:02 Calcium 8.2 L (8.4-10.2) mg/dL Pituitary panel 09/04/23 Range/Units 08:02 Sodium 136 L (137-145) mmol/L Potassium 4.3 (3.5-5.1) mmol/L Chloride 102 (98-107) mmol/L Carbon Dioxide 22 (22-30) mmol/L BUN 53 H (9-20) mg/dL Creatinine 1.50 H (0.66-1.25) mg/dL Glucose 158 H (74-99) mg/dL Calcium 8.2 L (8.4-10.2) mg/dL Adrenal panel 09/04/23 Range/Units 08:02 Sodium 136 L (137-145) mmol/L Potassium 4.3 (3.5-5.1) mmol/L Chloride 102 (98-107) mmol/L Carbon Dioxide 22 (22-30) mmol/L BUN 53 H (9-20) mg/dL Creatinine 1.50 H (0.66-1.25) mg/dL Glucose 158 H (74-99) mg/dL Calcium 8.2 L (8.4-10.2) mg/dL - Imaging Chest x-ray: report reviewed, image reviewed EKG: image reviewed Assessment and Plan Assessment: Triple-vessel coronary artery disease, non-STEMI this admission RSV this admission Acute hypoxic respiratory failure requiring BiPAP Chest pain, shortness of breath, secondary to above Ischemic cardiomyopathy Acute and chronic kidney disease History of coronary artery disease with previous myocardial infarction and drug- eluting stent to the LAD in September 2022 Hypertension Hyperlipidemia, treated, cholesterol 95, LDL 48 Insulin-dependent diabetes, uncontrolled with hyperglycemia, hemoglobin A1c 8.4% Chronic kidney disease stage IIIB, baseline creatinine 1.6-1.8 CVA in 2021 Covid in September 2022 PTSD/depression Previous tobacco dependence Family history of coronary artery disease Plan: The patient was seen and examined laying in bed in the cardiac stepdown unit in no acute distress wearing BiPAP. Chart/diagnostics were reviewed. Case will be discussed with Dr. Martines from cardiothoracic surgery. The usual perioperative course of open heart surgery will be discussed with the patient and his family tomorrow morning when family is present, however patient does not have pulmonology clearance at this time. Patient presented to the hospital with RSV, is currently on BiPAP, antibiotics, and IV steroids. In addition the patient has been maintained on chronic Plavix including a dose this morning and would need to be discontinued for 1 week prior to any surgical intervention to reduce the risk of bleeding. Will review heart catheterization and echocardiogram films with Dr. Martines to determine viability of surgical intervention. Continue current medication therapy per internal medicine, cardiology, pulmonology, nephrology. More recommendations forthcoming. Thank you Dr. Nelson for this consult. I have personally seen and examined the patient, performed the documentation and the assessment and plan as written. Number of minutes spent on the visit: 30. JUNE Townsend. Attending Addendum: This is an 82 year-old male with a hx of CVA, DM, and CAD s/p PCI to LAD last year who presented with SOB and was diagnosed with RSV. 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 Even if he recovers from RSV, unfortunately he is not a surgical candidate for revascularization given lack of LAD target. Recommend medical management for now and supportive care. Time with Patient: Greater than 30
[2023-09-04] MEDS: TAMSULOSIN 0.4 MG CAP.ER.24H PO SCH (17:10)
[2023-09-04] MEDS: NITROGLYCERIN SL TABS 0.4 MG TAB SUBLINGUAL PRN (17:38)
[2023-09-04 19:38] LABS: Glucose,Whole Blood 323 mg/dL (70-110)
[2023-09-04] MEDS: ATORVASTATIN 80 MG TAB PO SCH (21:11)
[2023-09-04] MEDS: INSULIN DETEMIR (LEVEMIR) 100 UNIT/ML SYR SQ SCH (21:11)
[2023-09-05] MEDS: methylPREDNISolone SOD SUCCI 125 MG/2 ML VIAL IV SCH ×2 (00:30→06:27)
[2023-09-05] MEDS: SODIUM CHLORIDE 0.9% 1,000 ML in EMPTY BAG 1 BAG IV SCH (05:39)
[2023-09-05 06:05] LABS: Glucose,Whole Blood 272 mg/dL (70-110)
[2023-09-05] MEDS: INSULIN ASPART (NovoLOG) 100 UNIT/ML VIAL SQ SCH ×7 (06:27→20:41)
[2023-09-05] MEDS: carvediloL 6.25 MG TAB PO SCH ×2 (06:27→16:19)
[2023-09-05] MEDS ORDERED: HEPARIN SODIUM,PORCINE 10,000 UNIT in SODIUM CHLORIDE 0.9% 1,000 ML IRRIGATION PRN (07:00)
[2023-09-05] MEDS ORDERED: HEPARIN SODIUM,PORCINE (1 ML) 2,500 UNIT in SODIUM CHLORIDE 0.9% 250 ML IRRIGATION PRN (07:00)
[2023-09-05 07:41] LABS: HCT 31.7 % (39.0-53.0); HGB 10.4 gm/dL (13.0-17.5); MCV 88.1 fL (80.0-100.0); Mean Platelet Volume 8.5; Platelet Count 201 k/uL (150-450); RBC 3.59 m/uL (4.30-5.90); WBC 11.1 k/uL (3.8-10.6)
[2023-09-05] MEDS: BUDESONIDE 1 MG/2 ML NEBU INHALATION SCH ×2 (08:17→20:52)
[2023-09-05] MEDS: IPRATROPIUM-ALBUTEROL 3 ML NEB INHALATION SCH ×4 (08:17→20:52)
[2023-09-05] MEDS: FUROSEMIDE 10 MG/ML 4 ML VIAL IV SCH (08:23)
[2023-09-05] MEDS: ASPIRIN 81 MG PO SCH (08:23)
[2023-09-05] MEDS: CLOPIDOGREL 75 MG TAB PO SCH (08:23)
[2023-09-05] MEDS: FINASTERIDE 5 MG TAB PO SCH (08:23)
[2023-09-05] MEDS: PANTOPRAZOLE 40 MG TABLET PO SCH (08:23)
[2023-09-05 08:35] LABS: African American GFR (CKD) 44 (>60 ml/min/1.73 sqM); Anion Gap 11 mmol/L; Blood Urea Nitrogen 65 mg/dL (9-20); Calcium 7.9 mg/dL (8.4-10.2); Carbon Dioxide 23 mmol/L (22-30); Chloride 100 mmol/L (98-107); Glucose 268 mg/dL (74-99); Magnesium 2.5 mg/dL (1.6-2.3); Non-African American GFR(CKD) 38 (>60 ml/min/1.73 sqM); Potassium 4.4 mmol/L (3.5-5.1); Sodium 134 mmol/L (137-145)
--- NOTE | 2023-09-05 11:21 | P.PN ---
Subjective Patient is seen for follow-up for chronic kidney disease. Status post cardiac catheterization with significant disease and awaiting surgical consult. Status post IV fluids yesterday for cardiac catheterization. Patient is also maintained on IV Lasix for CHF and volume overload noted on chest x-ray. No significant complaints today. Serum creatinine at 1.5-1.6 mg/dL. Objective - Vital Signs Vital signs: Vital Signs Temp 97.8 F 09/05/23 08:39 Pulse 58 L 09/05/23 08:39 Resp 18 09/05/23 08:39 BP 131/61 09/05/23 08:39 Pulse Ox 99 09/05/23 08:39 FiO2 40 09/05/23 08:22 Intake & Output 09/04/23 09/05/23 09/05/23 18:59 06:59 18:59 Intake Total 244.002 118 Output Total 650 350 300 Balance -405.998 -350 -182 Weight 122 kg Intake: IV 50 Intake, IV Titration 194.002 Amount Heparin Sod,Pork in 0.45% 194.002 NaCl 25,000 unit In 0.45 % NaCl 1 250ml.bag @ 10. 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 - Labs CBC & Chem 7: 09/05/23 06:50 09/05/23 06:50 Labs: Abnormal Lab Results - Last 24 Hours (Table) 09/04/23 09/04/23 09/04/23 Range/Units 11:32 16:17 19:26 WBC (3.8-10.6) k/uL RBC (4.30-5.90) m/uL Hgb (13.0-17.5) gm/dL Hct (39.0-53.0) % Sodium (137-145) mmol/L BUN (9-20) mg/dL Creatinine (0.66-1.25) mg/dL Glucose (74-99) mg/dL POC Glucose (mg/dL) 162 H 237 H 323 H (70-110) mg/dL Calcium (8.4-10.2) mg/dL Magnesium (1.6-2.3) mg/dL 09/05/23 09/05/23 09/05/23 Range/Units 06:02 06:50 06:50 WBC 11.1 H (3.8-10.6) k/uL RBC 3.59 L (4.30-5.90) m/uL Hgb 10.4 L (13.0-17.5) gm/dL Hct 31.7 L (39.0-53.0) % Sodium 134 L (137-145) mmol/L BUN 65 H (9-20) mg/dL Creatinine 1.68 H (0.66-1.25) mg/dL Glucose 268 H (74-99) mg/dL POC Glucose (mg/dL) 272 H (70-110) mg/dL Calcium 7.9 L (8.4-10.2) mg/dL Magnesium 2.5 H (1.6-2.3) mg/dL Assessment and Plan Assessment: 1. Chronic kidney disease stage IIIB secondary to diabetic kidney disease with baseline creatinine 1.6-1.8. GFR near baseline. No hydronephrosis noted on kidney ultrasound. 2. Acute hypoxic respiratory failure. 3. Acute RSV infection. 4. History of coronary artery disease with prior stenting. 5. Diabetes mellitus. 6. Chronic systolic CHF with ejection fraction of 35-40%. 7. Anemia of chronic kidney disease. Iron deficiency noted. 8. Non-ST elevated myocardial infarction. Cardiology following. Status post cardiac catheterization which showed significant disease and surgery has been consulted. Plan: Continue off of IV fluids Continue with IV Lasix Repeat labs in a.m.
[2023-09-05 11:52] LABS: Glucose,Whole Blood 331 mg/dL (70-110)
[2023-09-05] MEDS: HEPARIN SOD,PORK IN 0.45% NACL 25,000 UNIT in 0.45% NACL 1 250ML.BAG IV SCH (12:20)
[2023-09-05] MEDS: predniSONE 20 MG TAB PO SCH (12:20)
--- NOTE | 2023-09-05 12:24 | P.PN ---
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 Patient tested positive for RSV on his admission, and chest x-ray showed bibasilar opacities. Patient was also complaining of acute onset chest pain, and he was noted to have elevated troponin. Cardiology saw the patient, and felt that the patient has ischemic cardiomyopathy, in addition he had RSV acute tracheobronchitis/URI secondary to RSV, pro-calcitonin level was also elevated, and patient has been receiving antibiotics in the form of Rocephin and Zithromax. Patient also developed worsening kidney disease, he is known to have history of stage IIIB chronic kidney disease, baseline creatinine is in the range of 1.6-1.8, but considering his worsening renal functioning, patient was seen by nephrology on consultation, and recommended mostly encouraging oral intakes, and avoiding nephrotoxins as well as iron studies. Patient is also now being considered for possible cardiac catheterization. He does have ischemic cardiomyopathy with LV dysfunction and ejection fraction of 35-40%. According to the patient is a lifelong nonsmoker, but during my evalu ation the patient had diffuse rhonchi and wheezing bilaterally. Patient has been almost BiPAP dependent with IPAP of 12 and EPAP of 6 and 40% FiO2, does not feel well when he gets switched to nasal cannula continues to have intermittent episodes of cough wheezing and shortness of breath. Again the patient has no previous history of COPD and he had no review a smoking history according to the patient. Chest x-ray from yesterday showed left lower lobe atelectasis, possible pneumonia, no evidence of congestive heart failure. Again his pro- calcitonin level was noted in the range of 0.5 7. The patient is seen today 09/04/2023 in follow-up on the selective care unit. He is currently resting comfortably in bed. Awake and alert in no acute distress. He is improved today compared to yesterday. Currently off the BiPAP and maintaining O2 saturations in the 90s on 6 L/m per nasal cannula. He's been afebrile. Hemodynamically stable. He did undergo cardiac catheterization today which did reveal a 70-80% distal left main disease, 100% ostial LAD occlusion with faint right to left collaterals, 80-90% ostial PDA, 80% proximal OM1 occlusion. Current plan is to treat medically with a surgical consultation. White count 5.8. Hemoglobin 10.5. Platelets 187. Sodium 136. Potassium 4.3. Bicarb 22. BUN 53. Creatinine 1.50. He remains on a heparin drip. Continued on bronchodilators, Solu-Medrol. He is on IV diuretics. Currently in a -1.8 L balance. He remains on ceftriaxone. Completed azithromycin. Patient was reexamined today on 09/05/2023, continues to have shortness of breath and wheezing, nonetheless the wheezing seems to be improving, and I have transitioned his methylprednisolone to oral prednisone. Patient had cardiac catheterization, and it showed significant coronary artery disease, cardiothoracic surgery was consulted, however considering the patient's overall issues at present he is not a good candidate for surgery at this point. Patient remains BiPAP dependent, WBC count is 11.1 hemoglobin 10.4 basic metabolic profile is normal, creatinine is 1.68, baseline is 1.7 chest x-ray from 09/03, showed bilateral perihilar infiltrates, improving compared to his previous chest x-ray Objective - Vital Signs Vital signs: Vital Signs Temp 97.6 F 09/05/23 11:58 Pulse 62 09/05/23 11:58 Resp 18 09/05/23 08:39 BP 145/67 09/05/23 11:58 Pulse Ox 100 09/05/23 11:58 FiO2 40 09/05/23 11:31 Intake & Output 09/04/23 09/05/23 09/05/23 18:59 06:59 18:59 Intake Total 244.002 118 Output Total 650 350 300 Balance -405.998 -350 -182 Weight 122 kg Intake: IV 50 Intake, IV Titration 194.002 Amount Heparin Sod,Pork in 0.45% 194.002 NaCl 25,000 unit In 0.45 % NaCl 1 250ml.bag @ 10. 498 UNITS/KG/HR 10 mls/hr IV .Q24H [facility] Rx#: [id number] Oral 0 118 Output: Urine 650 350 300 Other: Voiding Method Toilet Toilet Toilet Urinal Urinal Urinal - Exam Physical Exam: Revealed 82-year-old white male on BiPAP, not in distress HEENT:[Neck is supple.] [No neck masses.] [No thyromegaly.] [No JVD.] Chest: [Wheezing noted bilaterally more so on forced expiratory maneuver. Cardiac Exam: [Normal S1 and S2, no S3 gallop, no murmur.] Abdomen: [Soft, nontender, no megaly, no rebound, no guarding, normal bowel sounds.] Extremities: [No clubbing, no edema, no cyanosis.] Neurological Exam: [No focal neurologic deficit.] Patient is a bit slow Psychiatric: Normal mood, affect and normal mental status examination. - Labs CBC & Chem 7: 09/05/23 06:50 09/05/23 06:50 Labs: Abnormal Lab Results - Last 24 Hours (Table) 09/04/23 09/04/23 09/05/23 Range/Units 16:17 19:26 06:02 WBC (3.8-10.6) k/uL RBC (4.30-5.90) m/uL Hgb (13.0-17.5) gm/dL Hct (39.0-53.0) % Sodium (137-145) mmol/L BUN (9-20) mg/dL Creatinine (0.66-1.25) mg/dL Glucose (74-99) mg/dL POC Glucose (mg/dL) 237 H 323 H 272 H (70-110) mg/dL Calcium (8.4-10.2) mg/dL Magnesium (1.6-2.3) mg/dL 09/05/23 09/05/23 09/05/23 Range/Units 06:50 06:50 11:50 WBC 11.1 H (3.8-10.6) k/uL RBC 3.59 L (4.30-5.90) m/uL Hgb 10.4 L (13.0-17.5) gm/dL Hct 31.7 L (39.0-53.0) % Sodium 134 L (137-145) mmol/L BUN 65 H (9-20) mg/dL Creatinine 1.68 H (0.66-1.25) mg/dL Glucose 268 H (74-99) mg/dL POC Glucose (mg/dL) 331 H (70-110) mg/dL Calcium 7.9 L (8.4-10.2) mg/dL Magnesium 2.5 H (1.6-2.3) mg/dL Assessment and Plan Assessment: Impression: Acute hypoxic respiratory failure Acute RSV tracheobronchitis Acute community-acquired pneumonia, superimposed on RSV infection Acute reactive bronchospasm or possible underlying COPD with acute exacerbation Acute Systolic congestive heart failure is in the differential, but not felt to be so at this time. Elevated d-dimer but negative venous Doppler and the clinical history is not a clinical history of thromboembolic disease/pulmonary embolism Acute on chronic kidney disease Benign essential hypertension History of CVA History of PTSD Triple-vessel coronary artery disease, as noted on recent cardiac catheterization Recommendation: Continue bronchodilators Continue antibiotics Continue steroids Continue updrafts Continue medical therapy for his coronary artery disease Continue BiPAP for now 08/26/40% Patient is a poor surgical candidate at this point in time. Extremely high surgical risk Continue diuretics patient is on Lasix 40 mg IV push daily continue DuoNeb We will continue to follow. Time with Patient: Less than 30
[2023-09-05] MEDS: SODIUM FERRIC GLUCONAT-SUCROSE 125 MG in SODIUM CHLORIDE 0.9% 100 ML IVPB SCH (12:46)
--- NOTE | 2023-09-05 15:30 | P.PN ---
Subjective HISTORY OF PRESENT ILLNESS: This Is a pleasant 82-year-old gentleman who follows in the office with Dr. Nelson. He has a history of STEMI in September at which time he underwent stenting of the LAD. He subsequently stopped taking his medications and he returned again with evidence of an anterior wall FL and underwent angioplasty and aspiration thrombectomy by Dr. Davis. Subsequently had CVA. He been feeling fairly well since around November of this year. Over the last few days he's been feeling significantly more short of breath. He decided to call EMS when he began developing chest discomfort. Upon presentation he was noted to be in sinu s rhythm with left bundle branch block which has not been diagnosed in the past. He is positive for RSV. Chest x-ray showed bibasilar opacifications. Initially troponin came back normal at 0.013 with subsequent troponin of 4.65. At the time of my examination the patient is chest pain-free. His breathing is better. His creatinine is 1.7 which is up compared to his baseline. He follows regularly with Dr. Barker. Myoglobin 12.7. He complains of left lower extremity edema and ultrasound was negative for DVT. His vital signs up and stable. At the time of my examination he is resting comfortably in bed. He denies complaints of chest discomfort. He's had no palpitations, dizziness or li ghtheadedness. He denies any orthopnea or PND. Continues to complain of shortness of breath but improved. 08/31/2023 Patient examined this morning at the bedside. Patient currently denies chest p ain or pressure. He reports shortness of breath. Patient has required increased oxygen overnight and is currently on 3 L nasal cannula. Patient's creatinine declined today to 1.90. He was initially scheduled for cardiac catheterization but this has been canceled and will be rescheduled when patient is medically stable. September 01 2023 Patient examined this morning at the bedside. Patient denies shortness of breath. He does report having an episode of chest discomfort this morning. He denies any chest pain at the time of examination. He remains on IV heparin. Echocardiogram completed revealing ejection fraction 35-40%, mid to distal anterior septal, anterior wall hypokinesia, anterior apical hypokinesia, mild aortic stenosis, mild MR and trace TR September 02 2023 Patient examined this morning at the bedside. Patient developed worsening shortness of breath overnight and required BiPAP. Chest x-ray this morning revealed bilateral lower lobe infiltrates correlate for pneumonia otherwise consider CHF. He remains on IV heparin. Creatinine 1.78. 09/03/2023 Patient examined this morning at the bedside. Patient remains on BiPAP. He reports feeling short of breath when the BiPAP is removed and also has a drop in his oxygen saturations. He currently denies any chest pain or pressure. He remains on IV heparin. 09/05 Patient underwent left heart catheterization yesterday showing occlusion of his previous LAD stent with right to left collaterals, 80-90% proximal PDA lesion which is somewhat similar to prior and mild disease of the circumflex. LVEDP was noted to be elevated at 23. Creatinine remained fairly stable at 1.68. Still remains intermittently on BiPAP. He also has been receiving IV Lasix 40 mg IV daily with good urine output. Patient seen by cardiothoracic surgery and deemed high risk and nonsurgical candidate for bypass. PHYSICAL EXAM: VITAL SIGNS: Reviewed. GENERAL: Well-developed in no acute distress. NECK: Supple. No JVD or thyromegaly LUNGS: Respirations even and unlabored. Lungs essentially clear to auscultation bilaterally. HEART: Regular rate and rhythm. S1 and S2 heard. EXTREMITIES: Normal range of motion. No clubbing or cyanosis. Peripheral pulses intact. No lower extremity edema ASSESSMENT: Non-STEMI, possibly related to occlusion of LAD stent New-onset left bundle branch block RSV Acute hypoxic respiratory failure Acute kidney injury Chronic kidney disease Coronary artery disease with previous stenting of the LAD Ischemic cardiomyopathy History of CVA PLAN: Continue current cardiac medications Creatinine appears stable and we will add losartan 12.5 mg daily for heart failure regimen Stop IV heparin however continue with stool antiplatelets with aspirin and Plavix Agree with surgery assessment the patient is not a good surgical candidate. Unclear if intervention of LAD with be beneficial and would likely need viability study before proceeding with any LAD intervention. May consider stenting of PDA if creatinine remains stable. Further recommendations to follow. Objective - Vital Signs Vital signs: Vital Signs Temp 97.6 F 09/05/23 11:58 Pulse 62 09/05/23 11:58 Resp 18 09/05/23 08:39 BP 145/67 09/05/23 11:58 Pulse Ox 100 09/05/23 11:58 FiO2 40 09/05/23 11:31 Intake & Output 12/09/05/23 09/05/23 18:59 06:59 18:59 Intake Total 244.002 118 Output Total 650 350 300 Balance -405.998 -350 -182 Weight 122 kg Intake: IV 50 Intake, IV Titration 194.002 Amount Heparin Sod,Pork in 0.45% 194.002 NaCl 25,000 unit In 0.45 % NaCl 1 250ml.bag @ 10. 498 UNITS/KG/HR 10 mls/hr IV .Q24H [facility] Rx#: [id number] Oral 0 118 Output: Urine 650 350 300 Other: Voiding Method Toilet Toilet Toilet Urinal Urinal Urinal - Labs CBC & Chem 7: 09/05/23 06:50 09/05/23 06:50 Labs: Abnormal Lab Results - Last 24 Hours (Table) 09/04/23 09/04/23 09/05/23 Range/Units 16:17 19:26 06:02 WBC (3.8-10.6) k/uL RBC (4.30-5.90) m/uL Hgb (13.0-17.5) gm/dL Hct (39.0-53.0) % Sodium (137-145) mmol/L BUN (9-20) mg/dL Creatinine (0.66-1.25) mg/dL Glucose (74-99) mg/dL POC Glucose (mg/dL) 237 H 323 H 272 H (70-110) mg/dL Calcium (8.4-10.2) mg/dL Magnesium (1.6-2.3) mg/dL 09/05/23 09/05/23 09/05/23 Range/Units 06:50 06:50 11:50 WBC 11.1 H (3.8-10.6) k/uL RBC 3.59 L (4.30-5.90) m/uL Hgb 10.4 L (13.0-17.5) gm/dL Hct 31.7 L (39.0-53.0) % Sodium 134 L (137-145) mmol/L BUN 65 H (9-20) mg/dL Creatinine 1.68 H (0.66-1.25) mg/dL Glucose 268 H (74-99) mg/dL POC Glucose (mg/dL) 331 H (70-110) mg/dL Calcium 7.9 L (8.4-10.2) mg/dL Magnesium 2.5 H (1.6-2.3) mg/dL
[2023-09-05 16:13] LABS: Glucose,Whole Blood 341 mg/dL (70-110)
[2023-09-05] MEDS: TAMSULOSIN 0.4 MG CAP.ER.24H PO SCH (16:19)
[2023-09-05] MEDS: LOSARTAN 25 MG TAB PO SCH (16:19)
--- NOTE | 2023-09-05 16:52 | P.PN ---
Subjective Progress Note Date: 09/05/23 Hospital course: Patient is a very pleasant 82-year-old male with a past medical history of CAD with previous VT and stenting of LAD on dual antiplatelet therapy with aspirin and Plavix, hypertension, hyperlipidemia, CVA, stage IIIB chronic kidney disease, and BPH. Patient presented to the emergency department on 08/30/23 with a chief complaint of shortness of breath and reports of crushing chest pain. Upon arrival to our facility patient was found to be in acute respiratory distress with respiratory rate of 32 breaths per minute and SpO2 of 90% on 15 L O2 via and nonrebreather mask requiring immediate placement on BiPAP. Vital signs otherwise showed hypertension with blood pressure 182/96, tachycardia with heart rate 113, and elevated temp with axillary temp documented at 101.6F. EKG completed showing sinus tachycardia at 103 bpm with a new onset left bundle branch block. Labs completed and reviewed. CBC showing leukocytosis with WBC count of 13.0. Coagulation profile showing elevated PTT of 21.7 and d-dimer of 2.13. BMP showing acute kidney injury on chronic kidney disease with BUN of 41, creatinine 1.70, and GFR of 37 with baseline creatinine of 1.3. Liver profile showing elevated alkaline phosphatase of 174. Troponin 0.013 and proBNP 1470. Influenza A, influenza B, and Covid PCR were all negative and RSV was positive. Patient was admitted under our services with consultation to cardiology and pulmonology. Troponins trended increasing from initial 0.013 up to 4.650. Repeat EKG completed still showing sinus mechanism at 84 bpm with continued left bundle branch block. Patient was started on heparin infusion. Bilateral lower extremity Dopplers were obtained negative for DVT, secondary to need for continuous BiPAP patient was unable to undergo CTA. Patient remained in acute hypoxic respiratory failure requiring continuous BiPAP and on heparin infusion secondary to NSTEMI. Echocardiogram completed showing a reduced EF of 35-40% with mid to distal anteroseptal and anterior wall hypokinesia and anterioapical hypokinesiaOn 09/04/23 patient underwent a cardiac catheterization showing severe occlusive coronary artery disease with 70-80% stenosis of distal left main, 100% of ostial LAD, 80-90% of ostial PDA, and 80% of proximal obtuse marginal. Cardiology recommending consultation to cardiothoracic surgery for revascularization. Cardiothoracic surgery evaluated stating patient is a very poor surgical candidate and not a surgical candidate for revascularization surge ry. Physical exam: Vital signs reviewed and stable. General: Nontoxic, no distress and appears stated age. Derm: Skin warm and dry, normal coloration for ethnicity. Head: Atraumatic, normocephalic and symmetric. Eyes: EOMs intact, no lid lag, and anicteric sclera Mouth: no lip lesions, mucus membranes moist Cardiovascular: regular rate and rhythm with normal S1S2, no murmur, positive posterior tibial pulses bilaterally, and cap refill < 2 seconds. Lungs: Respirations even, regular, and unlabored on BiPAP. Lungs diminished with diffuse soft expiratory wheezes bilaterally. Abdominal: soft, nontender to palpation, no guarding, no appreciable o rganomegaly Ext: ROM intact. No gross muscle atrophy, no edema, no contractures Neuro: Speech clear, face symmetrical and CN II-XII grossly intact with no noted focal neuro deficits Psych: Alert and oriented to person, place, time, and situation. Appropriate and pleasant affect. Assessment and Plan of Care: Acute respiratory failure with hypoxia RSVinfection with tracheobronchitis and community-acquired pneumonia Sepsis secondary to above -Continue BiPAP, wean once patient tolerates -Patient to remain on continuous Telemetry monitoring. -Monitor Pulse-oximetry -Duonebs scheduled for times daily and as needed for SOB and/or wheezing -Continue Pulmicort 1 puff twice daily -Steroids: Pulmonology changing patient to oral steroids with prednisone 40 mg daily beginning today. -Antibiotics: Patient completed 3 day course of azithromycin on 09/04/23 and is on Rocephin 1 g IVPB daily, day 4 out of 5 NSTEMI with triple vessel occlusive coronary artery disease Newly developed left bundle branch block Acute systolic heart failure with EF of 35-40% Elevated d-dimer, bilateral lower extremity Dopplers were negative patient is unstable to be taken down for CTA at this time Hypertension Hyperlipidemia History of CAD History of CVA -Echocardiogram showing a reduced EF of 35-40% with mid to distal anteroseptal and anterior wall hypokinesia and anterioapical hypokinesia. -On 09/04/23 patient underwent a cardiac catheterization showing severe occlusive coronary artery disease with 70-80% stenosis of distal left main, 100% of ostial LAD, 80-90% of ostial PDA, and 80% of proximal obtuse marginal. -Cardiothoracic surgery evaluated stating patient is a very poor surgical candidate and not a surgical candidate for revascularization surgery.Cardiothoracic surgery evaluated stating patient is a very poor surgical candidate and not a surgical candidate for revascularization surgery. -Cardiology following, reviewed documentation in chart. Recommending continued agressive medical management and discontinued IV heparin and starting patient on losartan 12.5 mg daily in addition to current cardiac medication regimen. -Patient to remain on continuous telemetry monitoring. -Patient to continue with cardiac medication regimen with aspirin 81 mg daily, atorvastatin 80 mg nightly, carvedilol 6.25 mg twice daily, Plavix 75 mg daily, and losartan 12.5 mg daily. Acute kidney injury on stage IIIb chronic kidney disease Currently BUN 65, creatinine 1.68, and GFR of 38 with baseline creatinine of 1.3. Acute kidney injury possibly secondary to cardiorenal syndrome, we will continue to monitor closely. Cardiology starting patient on losartan 12.5 mg daily. Patient remains on continuous BiPAP, cardiology and pulmonology continue to follow and he was evaluated by cardiothoracic surgery. It was determined patient is a very poor surgical candidate and not a candidate for revascularization surgery. Prognosis is guarded at this time. Vital signs reviewed. Blood pressure 131/61, heart rate 58, respiratory rate 18, temp 97.8F, SpO2 of 99% on BiPAP with FiO2 of 40%. CODE STATUS: Full code DVT prophylaxis: heparin Anticipated discharge date: Clinical course to determine Anticipated discharge place: clinical course to determine Patient was seen independently by Nurse Pracitioner. This document was prepared using [employer]mag dictation software. Please allow for errors in supply aide, while rare they do occur. José Ortiz NP rendered care for this patient independently, reviewed the findings and plan as documented in the note above. I did not physically speak with or examine the patient on this date. Objective - Vital Signs Vital signs: Vital Signs Temp 97.8 F 09/05/23 08:39 Pulse 58 L 09/05/23 08:39 Resp 18 09/05/23 08:39 BP 131/61 09/05/23 08:39 Pulse Ox 99 09/05/23 08:39 FiO2 40 09/05/23 08:22 Intake & Output 09/04/23 09/05/23 09/05/23 18:59 06:59 18:59 Intake Total 244.002 Output Total 650 350 300 Balance -405.998 -350 -300 Weight 122 kg Intake: IV 50 Intake, IV Titration 194.002 Amount Heparin Sod,Pork in 0.45% 194.002 NaCl 25,000 unit In 0.45 % NaCl 1 250ml.bag @ 10. 498 UNITS/KG/HR 10 mls/hr IV .Q24H [facility] Rx#: [id number] Oral 0 Output: Urine 650 350 300 Other: Voiding Method Toilet Toilet Toilet Urinal Urinal Urinal - Labs CBC & Chem 7: 09/07/23 06:37 09/07/23 06:37 Labs: Abnormal Lab Results - Last 24 Hours (Table) 09/04/23 09/04/23 09/04/23 Range/Units 08:02 08:02 11:32 WBC (3.8-10.6) k/uL RBC (4.30-5.90) m/uL Hgb (13.0-17.5) gm/dL Hct (39.0-53.0) % APTT 163.9 H* (22.0-30.0) sec Sodium 136 L (137-145) mmol/L BUN 53 H (9-20) mg/dL Creatinine 1.50 H (0.66-1.25) mg/dL Glucose 158 H (74-99) mg/dL POC Glucose (mg/dL) 162 H (70-110) mg/dL Calcium 8.2 L (8.4-10.2) mg/dL Magnesium (1.6-2.3) mg/dL 09/04/23 09/04/23 09/05/23 Range/Units 16:17 19:26 06:02 WBC (3.8-10.6) k/uL RBC (4.30-5.90) m/uL Hgb (13.0-17.5) gm/dL Hct (39.0-53.0) % APTT (22.0-30.0) sec Sodium (137-145) mmol/L BUN (9-20) mg/dL Creatinine (0.66-1.25) mg/dL Glucose (74-99) mg/dL POC Glucose (mg/dL) 237 H 323 H 272 H (70-110) mg/dL Calcium (8.4-10.2) mg/dL Magnesium (1.6-2.3) mg/dL 09/05/23 09/05/23 Range/Units 06:50 06:50 WBC 11.1 H (3.8-10.6) k/uL RBC 3.59 L (4.30-5.90) m/uL Hgb 10.4 L (13.0-17.5) gm/dL Hct 31.7 L (39.0-53.0) % APTT (22.0-30.0) sec Sodium 134 L (137-145) mmol/L BUN 65 H (9-20) mg/dL Creatinine 1.68 H (0.66-1.25) mg/dL Glucose 268 H (74-99) mg/dL POC Glucose (mg/dL) (70-110) mg/dL Calcium 7.9 L (8.4-10.2) mg/dL Magnesium 2.5 H (1.6-2.3) mg/dL
[2023-09-05 20:01] LABS: Glucose,Whole Blood 303 mg/dL (70-110)
[2023-09-05] MEDS: INSULIN DETEMIR (LEVEMIR) 100 UNIT/ML SYR SQ SCH (20:41)
[2023-09-05] MEDS: HEPARIN SODIUM,PORCINE 5,000 UNIT/ML 1 ML VIAL SQ SCH (20:41)
[2023-09-05] MEDS: ATORVASTATIN 80 MG TAB PO SCH (20:42)
[2023-09-06 06:06] LABS: Glucose,Whole Blood 200 mg/dL (70-110)
[2023-09-06] MEDS: carvediloL 6.25 MG TAB PO SCH ×2 (06:42→17:05)
[2023-09-06] MEDS: INSULIN ASPART (NovoLOG) 100 UNIT/ML VIAL SQ SCH ×7 (06:43→20:36)
[2023-09-06 08:03] LABS: African American GFR (CKD) 40 (>60 ml/min/1.73 sqM); Anion Gap 8 mmol/L; Blood Urea Nitrogen 69 mg/dL (9-20); Carbon Dioxide 25 mmol/L (22-30); Chloride 102 mmol/L (98-107); Glucose 174 mg/dL (74-99); Non-African American GFR(CKD) 35 (>60 ml/min/1.73 sqM); Potassium 4.4 mmol/L (3.5-5.1); Sodium 135 mmol/L (137-145)
[2023-09-06] MEDS: FUROSEMIDE 10 MG/ML 4 ML VIAL IV SCH (08:49)
[2023-09-06] MEDS: CLOPIDOGREL 75 MG TAB PO SCH (08:49)
[2023-09-06] MEDS: PANTOPRAZOLE 40 MG TABLET PO SCH (08:49)
[2023-09-06] MEDS: ASPIRIN 81 MG PO SCH (08:49)
[2023-09-06] MEDS: FINASTERIDE 5 MG TAB PO SCH (08:49)
[2023-09-06] MEDS: predniSONE 20 MG TAB PO SCH (08:49)
[2023-09-06] MEDS: HEPARIN SODIUM,PORCINE 5,000 UNIT/ML 1 ML VIAL SQ SCH ×2 (08:49→20:36)
[2023-09-06] MEDS: LOSARTAN 25 MG TAB PO SCH (08:49)
[2023-09-06] MEDS: BUDESONIDE 1 MG/2 ML NEBU INHALATION SCH ×2 (09:01→21:04)
[2023-09-06] MEDS: IPRATROPIUM-ALBUTEROL 3 ML NEB INHALATION SCH ×4 (09:01→21:04)
--- NOTE | 2023-09-06 09:14 | XR ---
EXAMINATION TYPE: XR chest 1V portable DATE OF EXAM: 09/06/2023 9:02 AM CLINICAL INDICATION:Male, 82 years old with history of follow up xray; [facility] COMPARISON: Chest radiographs from 09/03/2023 TECHNIQUE: XR chest 1V portable Frontal view of the chest. FINDINGS: Lungs/Pleura: Azygous fissure in the right upper lung. There is no evidence of pleural effusion, foca l consolidation, or pneumothorax. Pulmonary vascularity: Unremarkable. Heart/mediastinum: Cardiomediastinal silhouette is unremarkable. Musculoskeletal: No acute osseous pathology. IMPRESSION: No acute cardiopulmonary disease/process. Basilar airspace opacities are similar and could represent atelectasis.
--- NOTE | 2023-09-06 11:05 | P.PN ---
Subjective Patient is seen for follow-up for chronic kidney disease. Baseline creatinine 1.2-1.4 mg/dL Status post cardiac catheterization with significant disease and awaiting surgical consult. Patient is also maintained on IV Lasix for CHF and volume overload noted on chest x-ray. No significant complaints today. Serum creatinine at 1.5-1.6 mg/dL. increased to 1.8 today. Urine output at 1000 and well for 24 hours. Patient is maintained on BiPAP Objective - Vital Signs Vital signs: Vital Signs Temp 97.4 F L 09/05/23 20:00 Pulse 66 09/06/23 09:21 Resp 16 09/06/23 04:00 BP 116/68 09/06/23 04:00 Pulse Ox 100 09/06/23 04:00 FiO2 40 09/06/23 09:05 Intake & Output 09/05/23 09/06/23 09/06/23 18:59 06:59 18:59 Intake Total 118 Output Total 300 300 Balance -182 -300 Weight 78 kg Intake: Oral 118 Output: Urine 300 300 Other: Voiding Method Toilet Toilet Urinal Urinal # Bowel Movements 1 - Exam Patient is awake, comfortable, no acute distress Maintained on BiPAP Examination of the heart S1 and S2 Examination of the lungs bilateral breath sounds are heard Abdomen is soft obese nontender Examination of lower extremities shows trace edema bilaterally [facility] [employer] exam grossly intact - Labs CBC & Chem 7: 09/05/23 06:50 09/06/23 06:59 Labs: Abnormal Lab Results - Last 24 Hours (Table) 09/05/23 09/05/23 09/05/23 Range/Units 11:50 16:11 20:00 Sodium (137-145) mmol/L BUN (9-20) mg/dL Creatinine (0.66-1.25) mg/dL Glucose (74-99) mg/dL POC Glucose (mg/dL) 331 H 341 H 303 H (70-110) mg/dL Calcium (8.4-10.2) mg/dL 09/06/23 09/06/23 Range/Units 06:04 06:59 Sodium 135 L (137-145) mmol/L BUN 69 H (9-20) mg/dL Creatinine 1.81 H (0.66-1.25) mg/dL Glucose 174 H (74-99) mg/dL POC Glucose (mg/dL) 200 H (70-110) mg/dL Calcium 8.0 L (8.4-10.2) mg/dL Assessment and Plan Assessment: 1. Chronic kidney disease stage IIIB secondary to diabetic kidney disease with baseline creatinine 1.4-1.6. No hydronephrosis noted on kidney ultrasound. Possible mild acute kidney injury. Nonoliguric 2. Acute hypoxic respiratory failure. 3. Acute RSV infection. 4. History of coronary artery disease with prior stenting. 5. Diabetes mellitus. 6. Chronic systolic CHF with ejection fraction of 35-40%. 7. Anemia of chronic kidney disease. Iron deficiency noted. 8. Non-ST elevated myocardial infarction. Cardiology following. Status post cardiac catheterization which showed significant disease and surgery has been consulted. Plan: Continue off of IV fluids Continue with IV Lasix Repeat labs in a.m. [place] avoid nephrotoxic agents
[2023-09-06 11:46] LABS: Glucose,Whole Blood 225 mg/dL (70-110)
--- NOTE | 2023-09-06 12:16 | P.PN ---
Subjective Progress Note Date: 09/06/23 Principal diagnosis: Acute hypoxic respiratory failure secondary to RSV tracheobronchitis and acute community acquired pneumonia with reactive bronchospasm This is an 82-year-old white male with history of multiple medical problems including CVA, TIA, type 2 diabetes, hypertension, previous ID, patient was actually admitted on 08/30/2023, admitted with the chief complaint of shortness of breath and cough. Patient tested positive for RSV on his admission, and chest x-ray showed bibasilar opacities. Patient was also complaining of acute onset chest pain, and he was noted to have elevated troponin. Cardiology saw the patient, and felt that the patient has ischemic cardiomyopathy, in addition he had RSV acute tracheobronchitis/URI secondary to RSV, pro-calcitonin level was also elevated, and patient has been receiving antibiotics in the form of Rocephin and Zithromax. Patient also developed worsening kidney disease, he is known to have history of stage IIIB chronic kidney disease, baseline creatinine is in the range of 1.6-1.8, but considering his worsening renal functioning, patient was seen by nephrology on consultation, and recommended mostly encouraging oral intakes, and avoiding nephrotoxins as well as iron studies. Patient is also now being considered for possible cardiac catheterization. He does have ischemic cardiomyopathy with LV dysfunction and ejection fraction of 35-40%. According to the patient is a lifelong nonsmoker, but during my evalu ation the patient had diffuse rhonchi and wheezing bilaterally. Patient has been almost BiPAP dependent with IPAP of 12 and EPAP of 6 and 40% FiO2, does not feel well when he gets switched to nasal cannula continues to have intermittent episodes of cough wheezing and shortness of breath. Again the patient has no previous history of COPD and he had no review a smoking history according to the patient. Chest x-ray from yesterday showed left lower lobe atelectasis, possible pneumonia, no evidence of congestive heart failure. Again his pro- calcitonin level was noted in the range of 0.5 7. The patient is seen today 09/04/2023 in follow-up on the selective care unit. He is currently resting comfortably in bed. Awake and alert in no acute distress. He is improved today compared to yesterday. Currently off the BiPAP and maintaining O2 saturations in the 90s on 6 L/m per nasal cannula. He's been afebrile. Hemodynamically stable. He did undergo cardiac catheterization today which did reveal a 70-80% distal left main disease, 100% ostial LAD occlusion with faint right to left collaterals, 80-90% ostial PDA, 80% proximal OM1 occlusion. Current plan is to treat medically with a surgical consultation. White count 5.8. Hemoglobin 10.5. Platelets 187. Sodium 136. Potassium 4.3. Bicarb 22. BUN 53. Creatinine 1.50. He remains on a heparin drip. Continued on bronchodilators, Solu-Medrol. He is on IV diuretics. Currently in a -1.8 L balance. He remains on ceftriaxone. Completed azithromycin. Patient was reexamined today on 09/05/2023, continues to have shortness of breath and wheezing, nonetheless the wheezing seems to be improving, and I have transitioned his methylprednisolone to oral prednisone. Patient had cardiac catheterization, and it showed significant coronary artery disease, cardiothoracic surgery was consulted, however considering the patient's overall issues at present he is not a good candidate for surgery at this point. Patient remains BiPAP dependent, WBC count is 11.1 hemoglobin 10.4 basic metabolic profile is normal, creatinine is 1.68, baseline is 1.7 chest x-ray from 09/03, showed bilateral perihilar infiltrates, improving compared to his previous chest x-ray Patient was reevaluated today on 09/06/2023. Patient is feeling better, remains on BiPAP, however I am recommending that he goes on nasal cannula. Chest x-ray has shown significant improvement, minimal atelectasis is noted at the left base, otherwise chest x-ray is improved. Patient is on BiPAP, and I'm recommending that he goes to nasal cannula, O2 sats is 99% on 40% BiPAP. Electrolytes are normal BUN is 69 and creatinine 1.81 blood sugar is 225. Patient is now off heparin, and he is on aspirin and Plavix instead. Cardiology is considering intervention on his LAD disease, since the patient is a poor candidate for surgery. However considering about his renal status and elevated creatinine Objective - Vital Signs Vital signs: Vital Signs Temp 97.3 F L 09/06/23 12:00 Pulse 66 09/06/23 12:08 Resp 16 09/06/23 12:00 BP 136/63 09/06/23 12:00 Pulse Ox 99 09/06/23 12:00 FiO2 40 09/06/23 12:08 Intake & Output 09/05/23 09/06/23 09/06/23 18:59 06:59 18:59 Intake Total 118 Output Total 300 300 Balance -182 -300 Weight 78 kg Intake: Oral 118 Output: Urine 300 300 Other: Voiding Method Toilet Toilet Toilet Urinal Urinal Urinal # Bowel Movements 1 1 - Exam Physical Exam: Revealed 82-year-old white male on BiPAP, comfortable, not in any distress HEENT:[Neck is supple.] [No neck masses.] [No thyromegaly.] [No JVD.] Chest: [Less Wheezing noted today compared to the last few days. Good breath sound bilaterally. Cardiac Exam: [Normal S1 and S2, no S3 gallop, no murmur.] Abdomen: [Soft, nontender, no megaly, no rebound, no guarding, normal bowel sounds.] Extremities: [No clubbing, no edema, no cyanosis.] Neurological Exam: [No focal neurologic deficit.] Patient is a bit slow Psychiatric: Normal mood, affect and normal mental status examination. Skin: No rashes. Musculoskeletal: No deformities and no limitation in range of motion. - Labs CBC & Chem 7: 09/05/23 06:50 09/06/23 06:59 Labs: Abnormal Lab Results - Last 24 Hours (Table) 09/05/23 09/05/23 09/06/23 Range/Units 16:11 20:00 06:04 Sodium (137-145) mmol/L BUN (9-20) mg/dL Creatinine (0.66-1.25) mg/dL Glucose (74-99) mg/dL POC Glucose (mg/dL) 341 H 303 H 200 H (70-110) mg/dL Calcium (8.4-10.2) mg/dL 09/06/23 09/06/23 Range/Units 06:59 11:44 Sodium 135 L (137-145) mmol/L BUN 69 H (9-20) mg/dL Creatinine 1.81 H (0.66-1.25) mg/dL Glucose 174 H (74-99) mg/dL POC Glucose (mg/dL) 225 H (70-110) mg/dL Calcium 8.0 L (8.4-10.2) mg/dL Assessment and Plan Assessment: Impression: Acute hypoxic respiratory failure Acute RSV tracheobronchitis Acute community-acquired pneumonia, superimposed on RSV infection Acute reactive bronchospasm or possible underlying COPD with acute exacerbation Acute Systolic congestive heart failure is in the differential, but not felt to be so at this time. Asked x-ray today is reassuring Elevated d-dimer but negative venous Doppler and the clinical history is not a clinical history of thromboembolic disease/pulmonary embolism Acute on chronic kidney disease Benign essential hypertension History of CVA History of PTSD Triple-vessel coronary artery disease, as noted on recent cardiac catheterization Recommendation: Continue bronchodilators Continue antibiotics Continue steroids Continue updrafts Continue medical therapy for his coronary artery disease, being considered for LAD stent. Change BiPAP to nasal cannula today. Patient is a poor surgical candidate at this point in time. Continue diuretics patient is on Lasix 40 mg IV push daily continue DuoNeb We will continue to follow. Time with Patient: Less than 30
--- NOTE | 2023-09-06 13:02 | P.PN ---
Subjective Progress Note Date: 09/06/23 HISTORY OF PRESENT ILLNESS: This Is a pleasant 82-year-old gentleman who follows in the office with Dr. Nelson. He has a history of STEMI in September at which time he underwent stenting of the LAD. He subsequently stopped taking his medications and he returned again with evidence of an anterior wall NC and underwent angioplasty and aspiration thrombectomy by Dr. Davis. Subsequently had CVA. He been feeling fairly well since around November of this year. Over the last few days he's been feeling significantly more short of breath. He decided to call EMS when he began developing chest discomfort. Upon presentation he was noted to be in sinus rhythm with left bundle branch block which has not been diagnosed in the past. He is positive for RSV. Chest x-ray showed bibasilar opacifications. Initially troponin came back normal at 0.013 with subsequent troponin of 4.65. At the time of my examination the patient is chest pain-free. His breathing is better. His creatinine is 1.7 which is up compared to his baseline. He follows regularly with Dr. Barker. Myoglobin 12.7. He complains of left lower extremity edema and ultrasound was negative for DVT. His vital signs up and stable. At the time of my examination he is resting comfortably in bed. He denies complaints of chest discomfort. He's had no palpitations, dizziness or lightheadedness. He denies any orthopnea or PND. Continues to complain of shortness of breath but improved. 08/31/2023 Patient examined this morning at the bedside. Patient currently denies chest pain or pressure. He reports shortness of breath. Patient has required increased oxygen overnight and is currently on 3 L nasal cannula. Patient's creatinine declined today to 1.90. He was initially scheduled for cardiac catheterization but this has been canceled and will be rescheduled when patient is medically stable. September 01 2023 Patient examined this morning at the bedside. Patient denies shortness of breath. He does report having an episode of chest discomfort this morning. He denies any chest pain at the time of examination. He remains on IV heparin. Echocardiogram completed revealing ejection fraction 35-40%, mid to distal anterior septal, anterior wall hypokinesia, anterior apical hypokinesia, mild aortic stenosis, mild MR and trace TR September 02 2023 Patient examined this morning at the bedside. Patient developed worsening shortness of breath overnight and required BiPAP. Chest x-ray this morning revealed bilateral lower lobe infiltrates correlate for pneumonia otherwise consider CHF. He remains on IV heparin. Creatinine 1.78. 09/03/2023 Patient examined this morning at the bedside. Patient remains on BiPAP. He reports feeling short of breath when the BiPAP is removed and also has a drop in his oxygen saturations. He currently denies any chest pain or pressure. He remains on IV heparin. 09/05 Patient underwent left heart catheterization yesterday showing occlusion of his previous LAD stent with right to left collaterals, 80-90% proximal PDA lesion which is somewhat similar to prior and mild disease of the circumflex. LVEDP was noted to be elevated at 23. Creatinine remained fairly stable at 1.68. Still remains intermittently on BiPAP. He also has been receiving IV Lasix 40 mg IV daily with good urine output. Patient seen by cardiothoracic surgery and deemed high risk and nonsurgical candidate for bypass. 09/06 the patient is on BiPAP and he states he's taken her off to eat only. He states his breathing is better. No chest pain. Blood pressure 136/63, heart rate is in the 60s, pulse ox 99% on FiO2 of 40 with BiPAP. Repeat blood work reveals sodium 135, potassium 4.4, BUN 69 and creatinine 1.81. Chest x-ray reveals no acute cardiopulmonary process. Basilar airspace opacities similar and could represent atelectasis. Yesterday, losartan was started. He has continued on aspirin 81 mg daily, atorvastatin 80 mg daily, Coreg, Plavix to maximize medical therapy PHYSICAL EXAM: VITAL SIGNS: Reviewed. GENERAL: Well-developed in no acute distress. NECK: Supple. No JVD or thyromegaly LUNGS: Respirations even and unlabored. Lungs essentially clear to auscultation bilaterally. HEART: Regular rate and rhythm. S1 and S2 heard. EXTREMITIES: Normal range of motion. No clubbing or cyanosis. Peripheral pulses intact. No lower extremity edema ASSESSMENT: Non-STEMI, possibly related to occlusion of LAD stent New-onset left bundle branch block RSV Acute hypoxic respiratory failure Acute kidney injury Chronic kidney disease Coronary artery disease with previous stenting of the LAD Ischemic cardiomyopathy History of CVA PLAN: Continue current cardiac medications Agree with surgery assessment the patient is not a good surgical candidate. Unclear if intervention of LAD with be beneficial and would likely need viability study before proceeding with any LAD intervention. May consider stenting of PDA if creatinine remains stable. Further recommendations to follow. Nurse practitioner note has been reviewed, I agree with the documented findings and plan of care. Patient was seen and examined. Objective - Vital Signs Vital signs: Vital Signs Temp 97.5 F L 09/06/23 08:00 Pulse 66 09/06/23 09:21 Resp 18 09/06/23 08:00 BP 138/67 09/06/23 08:00 Pulse Ox 100 09/06/23 08:00 FiO2 40 09/06/23 09:05 Intake & Output 09/05/23 09/06/23 09/06/23 18:59 06:59 18:59 Intake Total 118 Output Total 300 300 Balance -182 -300 Weight 78 kg Intake: Oral 118 Output: Urine 300 300 Other: Voiding Method Toilet Toilet Toilet Urinal Urinal Urinal # Bowel Movements 1 1 - Labs CBC & Chem 7: 09/05/23 06:50 09/06/23 06:59 Labs: Abnormal Lab Results - Last 24 Hours (Table) 09/05/23 09/05/23 09/05/23 Range/Units 11:50 16:11 20:00 Sodium (137-145) mmol/L BUN (9-20) mg/dL Creatinine (0.66-1.25) mg/dL Glucose (74-99) mg/dL POC Glucose (mg/dL) 331 H 341 H 303 H (70-110) mg/dL Calcium (8.4-10.2) mg/dL 09/06/23 09/06/23 Range/Units 06:04 06:59 Sodium 135 L (137-145) mmol/L BUN 69 H (9-20) mg/dL Creatinine 1.81 H (0.66-1.25) mg/dL Glucose 174 H (74-99) mg/dL POC Glucose (mg/dL) 200 H (70-110) mg/dL Calcium 8.0 L (8.4-10.2) mg/dL
--- NOTE | 2023-09-06 14:45 | P.PN ---
Subjective Progress Note Date: 09/06/23 Hospital course: Patient is a very pleasant 82-year-old male with a past medical history of CAD with previous IA and stenting of LAD on dual antiplatelet therapy with aspirin and Plavix, hypertension, hyperlipidemia, CVA, stage IIIB chronic kidney disease, and BPH. Patient presented to the emergency department on 08/30/23 with a chief complaint of shortness of breath and reports of crushing chest pain. Upon arrival to our facility patient was found to be in acute respiratory distress with respiratory rate of 32 breaths per minute and SpO2 of 90% on 15 L O2 via and nonrebreather mask requiring immediate placement on BiPAP. Vital signs otherwise showed hypertension with blood pressure 182/96, tachycardia with heart rate 113, and elevated temp with axillary temp documented at 101.6F. EKG completed showing sinus tachycardia at 103 bpm with a new onset left bundle branch block. Labs completed and reviewed. CBC showing leukocytosis with WBC count of 13.0. Coagulation profile showing elevated PTT of 21.7 and d-dimer of 2.13. BMP showing acute kidney injury on chronic kidney disease with BUN of 41, creatinine 1.70, and GFR of 37 with baseline creatinine of 1.3. Liver profile showing elevated alkaline phosphatase of 174. Troponin 0.013 and proBNP 1470. Influenza A, influenza B, and Covid PCR were all negative and RSV was positive. Patient was admitted under our services with consultation to cardiology and pulmonology. Troponins trended increasing from initial 0.013 up to 4.650. Repeat EKG completed still showing sinus mechanism at 84 bpm with continued left bundle branch block. Patient was started on heparin infusion. Bilateral lower extremity Dopplers were obtained negative for DVT, secondary to need for continuous BiPAP patient was unable to undergo CTA. Patient remained in acute hypoxic respiratory failure requiring continuous BiPAP and on heparin infusion secondary to NSTEMI. Echocardiogram completed showing a reduced EF of 35-40% with mid to distal anteroseptal and anterior wall hypokinesia and anterioapical hypokinesiaOn 09/04/23 patient underwent a cardiac catheterization showing severe occlusive coronary artery disease with 70-80% stenosis of distal left main, 100% of ostial LAD, 80-90% of ostial PDA, and 80% of proximal obtuse marginal. Cardiology recommending consultation to cardiothoracic surgery for revascularization. Cardiothoracic surgery evaluated stating patient is a very poor surgical candidate and not a surgical candidate for revascularization surge ry. Physical exam: Patient seen and fully evaluated at bedside this morning. He remains on BiPAP with SpO2 of 100%. Discussed with patient goals of attempting to wean off of bypass. Order placed for repeat chest x-ray. Patient reports feeling mildly an xious otherwise denies having any complaints at this time, including chest pain, palpitations, or shortness of breath. Patient does report his eyes persistently tears secondary to air from BiPAP. We will reevaluate this complaint and monitor for improvement, once pt is weaned off of BiPAP. Vital signs reviewed and stable. General: Nontoxic, no distress and appears stated age. Derm: Skin warm and dry, normal coloration for ethnicity. Head: Atraumatic, normocephalic and symmetric. Eyes: EOMs intact, no lid lag, and anicteric sclera Mouth: no lip lesions, mucus membranes moist Cardiovascular: regular rate and rhythm with normal S1S2, no murmur, positive posterior tibial pulses bilaterally, and cap refill < 2 seconds. Lungs: Respirations even, regular, and unlabored on BiPAP. Lungs diminished with diffuse soft expiratory wheezes bilaterally. Abdominal: soft, nontender to palpation, no guarding, no appreciable organomegaly Ext: ROM intact. No gross muscle atrophy, no edema, no contractures Neuro: Speech clear, face symmetrical and CN II-XII grossly intact with no noted focal neuro deficits Psych: Alert and oriented to person, place, time, and situation. Appropriate and pleasant affect. Assessment and Plan of Care: Acute respiratory failure with hypoxia RSVinfection with tracheobronchitis and community-acquired pneumonia Sepsis secondary to above -Continue BiPAP, wean once patient tolerates -Patient to remain on continuous Telemetry monitoring. -Monitor Pulse-oximetry -Duonebs scheduled for times daily and as needed for SOB and/or wheezing -Continue Pulmicort 1 puff twice daily -Steroids: Continue Prednisone 40 mg daily beginning today. -Antibiotics: Patient completed 3 day course of azithromycin on 09/04/23 and is on Rocephin 1 g IVPB daily, day 5 out of 5. -Patient scheduled to complete antibiotics today. He has remained afebrile 6 days. Will repeat chest x-ray and follow up on these results. NSTEMI with triple vessel occlusive coronary artery disease Newly developed left bundle branch block Acute systolic heart failure with EF of 35-40% Elevated d-dimer, bilateral lower extremity Dopplers were negative patient is unstable to be taken down for CTA at this time Hypertension Hyperlipidemia History of CAD History of CVA -Echocardiogram showing a reduced EF of 35-40% with mid to distal anteroseptal and anterior wall hypokinesia and anterioapical hypokinesia. -On 09/04/23 patient underwent a cardiac catheterization showing severe occlusive coronary artery disease with 70-80% stenosis of distal left main, 100% of ostial LAD, 80-90% of ostial PDA, and 80% of proximal obtuse marginal. -Cardiothoracic surgery evaluated stating patient is a very poor surgical candidate and not a surgical candidate for revascularization surgery.Cardiothor ac surgery evaluated stating patient is a very poor surgical candidate and not a surgical candidate for revascularization surgery. -Cardiology following, reviewed documentation in chart. Recommending continued agressive medical management and discontinued IV heparin and starting patient on losartan 12.5 mg daily in addition to current cardiac medication regimen. -Patient to remain on continuous telemetry monitoring. -Patient to continue with cardiac medication regimen with aspirin 81 mg daily, atorvastatin 80 mg nightly, carvedilol 6.25 mg twice daily, Plavix 75 mg daily, and losartan 12.5 mg daily. Acute kidney injury on stage IIIb chronic kidney disease Currently BUN 69, creatinine 1.81, and GFR of 35 with baseline creatinine of 1.3. Acute kidney injury possibly secondary to cardiorenal syndrome, we will continue to monitor closely. Cardiology starting patient on losartan 12.5 mg daily. Patient remains on continuous BiPAP, cardiology and pulmonology continue to follow and pt was evaluated by cardiothoracic surgery. It was determined patient is a very poor surgical candidate and not a candidate for revascularization surgery. Prognosis remains guarded at this time. Data and imaging reviewed: -Morning labs reviewed: BMP showing persistent acute kidney injury on chronic kidney disease stage IIIB with BUN of 69, creatinine 1.81, and GFR of 35 with baseline creatinine of 1.3. Blood glucose 174 this morning. -Vital signs reviewed. Blood pressure 116/68, heart rate 57, respiratory rate 16, SpO2 of 100% on BiPAP with FiO2 of 40%. CODE STATUS: Full code DVT prophylaxis: heparin Anticipated discharge date: Clinical course to determine Anticipated discharge place: clinical course to determine Patient was seen independently by Nurse Pracitioner. This document was prepared using Dragon dictation software. Please allow for errors in launching pad mechanic, while rare they do occur. José Ortiz, ST[employer] MINER rendered care for this patient independently, reviewed the findings and plan as documented in the note above. I did not physically speak with or examine the patient on this date. Objective - Vital Signs Vital signs: Vital Signs Temp 97.4 F L 09/05/23 20:00 Pulse 57 L 09/06/23 04:00 Resp 16 09/06/23 04:00 BP 116/68 09/06/23 04:00 Pulse Ox 100 09/06/23 04:00 FiO2 40 09/06/23 04:30 Intake & Output 09/05/23 09/06/23 09/06/23 18:59 06:59 18:59 Intake Total 118 Output Total 300 300 Balance -182 -300 Weight 78 kg Intake: Oral 118 Output: Urine 300 300 Other: Voiding Method Toilet Toilet Urinal Urinal # Bowel Movements 1 - Labs CBC & Chem 7: 09/07/23 06:37 09/07/23 06:37 Labs: Abnormal Lab Results - Last 24 Hours (Table) 09/05/23 09/05/23 09/05/23 Range/Units 06:50 11:50 16:11 Sodium 134 L (137-145) mmol/L BUN 65 H (9-20) mg/dL Creatinine 1.68 H (0.66-1.25) mg/dL Glucose 268 H (74-99) mg/dL POC Glucose (mg/dL) 331 H 341 H (70-110) mg/dL Calcium 7.9 L (8.4-10.2) mg/dL Magnesium 2.5 H (1.6-2.3) mg/dL 09/05/23 09/06/23 09/06/23 Range/Units 20:00 06:04 06:59 Sodium 135 L (137-145) mmol/L BUN 69 H (9-20) mg/dL Creatinine 1.81 H (0.66-1.25) mg/dL Glucose 174 H (74-99) mg/dL POC Glucose (mg/dL) 303 H 200 H (70-110) mg/dL Calcium 8.0 L (8.4-10.2) mg/dL Magnesium (1.6-2.3) mg/dL
[2023-09-06 16:24] LABS: Glucose,Whole Blood 365 mg/dL (70-110)
[2023-09-06] MEDS: TAMSULOSIN 0.4 MG CAP.ER.24H PO SCH (17:05)
[2023-09-06 20:15] LABS: Glucose,Whole Blood 362 mg/dL (70-110)
[2023-09-06] MEDS: INSULIN DETEMIR (LEVEMIR) 100 UNIT/ML SYR SQ SCH (20:36)
[2023-09-06] MEDS: ATORVASTATIN 80 MG TAB PO SCH (20:36)
[2023-09-06] MEDS: ALPRAZolam 0.5 MG TAB PO SCH (20:36)
[2023-09-07 05:53] LABS: Glucose,Whole Blood 295 mg/dL (70-110)
[2023-09-07] MEDS: INSULIN ASPART (NovoLOG) 100 UNIT/ML VIAL SQ SCH ×7 (06:21→20:19)
[2023-09-07] MEDS: carvediloL 6.25 MG TAB PO SCH ×2 (06:22→17:32)
[2023-09-07 06:48] LABS: HCT 31.6 % (39.0-53.0); HGB 10.3 gm/dL (13.0-17.5); MCH 28.4 pg (25.0-35.0); MCHC 32.7 g/dL (31.0-37.0); MCV 86.8 fL (80.0-100.0); Mean Platelet Volume 9.5; Platelet Count 195 k/uL (150-450); RBC 3.64 m/uL (4.30-5.90); RDW 14.1 % (11.5-15.5); WBC 9.7 k/uL (3.8-10.6)
[2023-09-07 07:23] LABS: ALT 29 U/L (4-49); AST 26 U/L (17-59); African American GFR (CKD) 46 (>60 ml/min/1.73 sqM); Alkaline Phosphatase 108 U/L (38-126); Anion Gap 8 mmol/L; Blood Urea Nitrogen 67 mg/dL (9-20); Calcium 7.9 mg/dL (8.4-10.2); Carbon Dioxide 23 mmol/L (22-30); Chloride 103 mmol/L (98-107); Glucose 248 mg/dL (74-99); Magnesium 2.4 mg/dL (1.6-2.3); Non-African American GFR(CKD) 39 (>60 ml/min/1.73 sqM); Potassium 4.8 mmol/L (3.5-5.1); Sodium 134 mmol/L (137-145); Total Bilirubin 0.3 mg/dL (0.2-1.3); Total Protein 5.8 g/dL (6.3-8.2)
[2023-09-07] MEDS: BUDESONIDE 1 MG/2 ML NEBU INHALATION SCH ×2 (07:39→21:17)
[2023-09-07] MEDS: IPRATROPIUM-ALBUTEROL 3 ML NEB INHALATION SCH ×4 (07:39→21:17)
[2023-09-07] MEDS: FUROSEMIDE 10 MG/ML 4 ML VIAL IV SCH (09:18)
[2023-09-07] MEDS: CLOPIDOGREL 75 MG TAB PO SCH (09:19)
[2023-09-07] MEDS: LOSARTAN 25 MG TAB PO SCH (09:19)
[2023-09-07] MEDS: predniSONE 20 MG TAB PO SCH (09:19)
[2023-09-07] MEDS: PANTOPRAZOLE 40 MG TABLET PO SCH (09:19)
[2023-09-07] MEDS: FINASTERIDE 5 MG TAB PO SCH (09:19)
[2023-09-07] MEDS: ASPIRIN 81 MG PO SCH (09:19)
[2023-09-07] MEDS: HEPARIN SODIUM,PORCINE 5,000 UNIT/ML 1 ML VIAL SQ SCH ×2 (09:19→20:18)
--- NOTE | 2023-09-07 10:57 | P.PN ---
Subjective Patient is seen for follow-up for chronic kidney disease. Baseline creatinine 1.2-1.4 mg/dL Status post cardiac catheterization with significant disease and deemed to be not good surgical candidate at this time. Patient is also maintained on IV Lasix for CHF and volume overload noted on chest x-ray. No significant complaints today. Serum creatinine decreased to 1.6 today. 24- hour urine output documented at 500 mL. I'm not sure if this is accurate as patient has voided multiple times. Patient is maintained on BiPAP Objective - Vital Signs Vital signs: Vital Signs Temp 97.3 F L 09/07/23 08:00 Pulse 64 09/07/23 08:02 Resp 16 09/07/23 08:00 BP 130/62 09/07/23 08:00 Pulse Ox 99 09/07/23 08:00 FiO2 40 09/07/23 08:02 Intake & Output 09/06/23 09/07/23 09/07/23 18:59 06:59 18:59 Intake Total 590 180 Output Total 300 200 400 Balance 290 -200 -220 Weight 124 kg Intake: Oral 590 180 Output: Urine 300 200 400 Other: Voiding Method Toilet Toilet Toilet Urinal Urinal Urinal # Bowel Movements 1 1 - Exam Patient is awake, comfortable, no acute distress Maintained on BiPAP Examination of the heart S1 and S2 Examination of the lungs bilateral breath sounds are heard Abdomen is soft obese nontender Examination of lower extremities shows trace edema bilaterally 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 - Labs CBC & Chem 7: 09/07/23 06:37 09/07/23 06:37 Labs: Abnormal Lab Results - Last 24 Hours (Table) 09/06/23 09/06/23 09/06/23 Range/Units 11:44 16:21 20:13 RBC (4.30-5.90) m/uL Hgb (13.0-17.5) gm/dL Hct (39.0-53.0) % Sodium (137-145) mmol/L BUN (9-20) mg/dL Creatinine (0.66-1.25) mg/dL Glucose (74-99) mg/dL POC Glucose (mg/dL) 225 H 365 H 362 H (70-110) mg/dL Calcium (8.4-10.2) mg/dL Magnesium (1.6-2.3) mg/dL Total Protein (6.3-8.2) g/dL Albumin (3.5-5.0) g/dL 09/07/23 09/07/23 09/07/23 Range/Units 05:51 06:37 06:37 RBC 3.64 L (4.30-5.90) m/uL Hgb 10.3 L (13.0-17.5) gm/dL Hct 31.6 L (39.0-53.0) % Sodium 134 L (137-145) mmol/L BUN 67 H (9-20) mg/dL Creatinine 1.62 H (0.66-1.25) mg/dL Glucose 248 H (74-99) mg/dL POC Glucose (mg/dL) 295 H (70-110) mg/dL Calcium 7.9 L (8.4-10.2) mg/dL Magnesium 2.4 H (1.6-2.3) mg/dL Total Protein 5.8 L (6.3-8.2) g/dL Albumin 3.0 L (3.5-5.0) g/dL Assessment and Plan Assessment: 1. Chronic kidney disease stage IIIB secondary to diabetic kidney disease with baseline creatinine 1.4-1.6. No hydronephrosis noted on kidney ultrasound. Possible mild acute kidney injury. Nonoliguric 2. Acute hypoxic respiratory failure. 3. Acute RSV infection. 4. History of coronary artery disease with prior stenting. 5. Diabetes mellitus. 6. Chronic systolic CHF with ejection fraction of 35-40%. 7. Anemia of chronic kidney disease. Iron deficiency noted. 8. Non-ST elevated myocardial infarction. Cardiology following. Status post cardiac catheterization which showed significant disease and surgery has been consulted. Plan: Continue off of IV fluids Continue with current dose off IV Lasix Repeat labs in a.m. Avoid nephrotoxic agents
[2023-09-07 11:32] LABS: Glucose,Whole Blood 286 mg/dL (70-110)
--- NOTE | 2023-09-07 12:37 | P.PN ---
Subjective Progress Note Date: 09/07/23 HISTORY OF PRESENT ILLNESS: This Is a pleasant 82-year-old gentleman who follows in the office with Dr. Nelson. He has a history of STEMI in September at which time he underwent stenting of the LAD. He subsequently stopped taking his medications and he returned again with evidence of an anterior wall [place] and underwent angioplasty and aspiration thrombectomy by Dr. Davis. Subsequently had CVA. He been feeling fairly well since around November of this year. Over the last few days he's been feeling significantly more short of breath. He decided to call EMS when he began developing chest discomfort. Upon presentation he was noted to be in sinus rhythm with left bundle branch block which has not been diagnosed in the past. He is positive for RSV. Chest x-ray showed bibasilar opacifications. Initially troponin came back normal at 0.013 with subsequent troponin of 4.65. At the time of my examination the patient is chest pain-free. His breathing is better. His creatinine is 1.7 which is up compared to his baseline. He follows regularly with Dr. Barker. Myoglobin 12.7. He complains of left lower extremity edema and ultrasound was negative for DVT. His vital signs up and stable. At the time of my examination he is resting comfortably in bed. He denies complaints of chest discomfort. He's had no palpitations, dizziness or lightheadedness. He denies any orthopnea or PND. Continues to complain of shortness of breath but improved. 08/31/2023 Patient examined this morning at the bedside. Patient currently denies chest pain or pressure. He reports shortness of breath. Patient has required increased oxygen overnight and is currently on 3 L nasal cannula. Patient's creatinine declined today to 1.90. He was initially scheduled for cardiac catheterization but this has been canceled and will be rescheduled when patient is medically stable. September 01 2023 Patient examined this morning at the bedside. Patient denies shortness of breath. He does report having an episode of chest discomfort this morning. He denies any chest pain at the time of examination. He remains on IV heparin. Echocardiogram completed revealing ejection fraction 35-40%, mid to distal anterior septal, anterior wall hypokinesia, anterior apical hypokinesia, mild aortic stenosis, mild MR and trace TR September 02 2023 Patient examined this morning at the bedside. Patient developed worsening shortness of breath overnight and required BiPAP. Chest x-ray this morning revealed bilateral lower lobe infiltrates correlate for pneumonia otherwise consider CHF. He remains on IV heparin. Creatinine 1.78. 09/03/2023 Patient examined this morning at the bedside. Patient remains on BiPAP. He reports feeling short of breath when the BiPAP is removed and also has a drop in his oxygen saturations. He currently denies any chest pain or pressure. He remains on IV heparin. 09/05 Patient underwent left heart catheterization yesterday showing occlusion of his previous LAD stent with right to left collaterals, 80-90% proximal PDA lesion which is somewhat similar to prior and mild disease of the circumflex. LVEDP was noted to be elevated at 23. Creatinine remained fairly stable at 1.68. Still remains intermittently on BiPAP. He also has been receiving IV Lasix 40 mg IV daily with good urine output. Patient seen by cardiothoracic surgery and deemed high risk and nonsurgical candidate for bypass. 09/06 the patient is on BiPAP and he states he's taken her off to eat only. He states his breathing is better. No chest pain. Blood pressure 136/63, heart rate is in the 60s, pulse ox 99% on FiO2 of 40 with BiPAP. Repeat blood work reveals sodium 135, potassium 4.4, BUN 69 and creatinine 1.81. Chest x-ray reveals no acute cardiopulmonary process. Basilar airspace opacities similar and could represent atelectasis. Yesterday, losartan was started. He has continued on aspirin 81 mg daily, atorvastatin 80 mg daily, Coreg, Plavix to maximize medical therapy 09/07 Patient remains on BiPAP with FiO2 of 40% and pulse ox 99%. Heart rate 59, blood pressure 130/62, afebrile. Telemetry is sinus rhythm. BUN 67 and creatinine 1.62, potassium 4.8, hemoglobin 10.3. Patient is maintained on IV Lasix 40 mg daily and followed closely by nephrology and pulmonary medicine. PHYSICAL EXAM: VITAL SIGNS: Reviewed. GENERAL: Well-developed in no acute distress. NECK: Supple. No JVD or thyromegaly LUNGS: Respirations even and unlabored. Lungs essentially clear to auscultation bilaterally. HEART: Regular rate and rhythm. S1 and S2 heard. EXTREMITIES: Normal range of motion. No clubbing or cyanosis. Peripheral pulses intact. No lower extremity edema ASSESSMENT: Non-STEMI, possibly related to occlusion of LAD stent New-onset left bundle branch block RSV Acute hypoxic respiratory failure Acute kidney injury Chronic kidney disease Coronary artery disease with previous stenting of the LAD Ischemic cardiomyopathy History of CVA PLAN: Continue current cardiac medications Agree with surgery assessment the patient is not a good surgical candidate. Unclear if intervention of LAD with be beneficial and would likely need viability study before proceeding with any LAD intervention. May consider stenting of PDA if creatinine remains stable and once respiratory status has been stabilized. Further recommendations to follow. Nurse practitioner note has been reviewed, I agree with the documented findings and plan of care. Patient was seen and examined. Objective - Vital Signs Vital signs: Vital Signs Temp 97.6 F 09/06/23 20:00 Pulse 64 09/07/23 08:02 Resp 16 09/07/23 04:00 BP 138/60 09/07/23 04:00 Pulse Ox 99 09/07/23 07:40 FiO2 40 09/07/23 08:02 Intake & Output 09/06/23 09/07/23 09/07/23 18:59 06:59 18:59 Intake Total 590 180 Output Total 300 200 Balance 290 -200 180 Weight 124 kg Intake: Oral 590 180 Output: Urine 300 200 Other: Voiding Method Toilet Toilet Urinal Urinal # Bowel Movements 1 1 - Labs CBC & Chem 7: 09/07/23 06:37 09/07/23 06:37 Labs: Abnormal Lab Results - Last 24 Hours (Table) 09/06/23 09/06/23 09/06/23 Range/Units 11:44 16:21 20:13 RBC (4.30-5.90) m/uL Hgb (13.0-17.5) gm/dL Hct (39.0-53.0) % Sodium (137-145) mmol/L BUN (9-20) mg/dL Creatinine (0.66-1.25) mg/dL Glucose (74-99) mg/dL POC Glucose (mg/dL) 225 H 365 H 362 H (70-110) mg/dL Calcium (8.4-10.2) mg/dL Magnesium (1.6-2.3) mg/dL Total Protein (6.3-8.2) g/dL Albumin (3.5-5.0) g/dL 09/07/23 09/07/2323 Range/Units 05:51 06:37 06:37 RBC 3.64 L (4.30-5.90) m/uL Hgb 10.3 L (13.0-17.5) gm/dL Hct 31.6 L (39.0-53.0) % Sodium 134 L (137-145) mmol/L BUN 67 H (9-20) mg/dL Creatinine 1.62 H (0.66-1.25) mg/dL Glucose 248 H (74-99) mg/dL POC Glucose (mg/dL) 295 H (70-110) mg/dL Calcium 7.9 L (8.4-10.2) mg/dL Magnesium 2.4 H (1.6-2.3) mg/dL Total Protein 5.8 L (6.3-8.2) g/dL Albumin 3.0 L (3.5-5.0) g/dL
--- NOTE | 2023-09-07 12:37 | P.PN ---
Subjective Progress Note Date: 09/07/23 Principal diagnosis: Shortness of breath. This is an 82-year-old white male with history of multiple medical problems including CVA, TIA, type 2 diabetes, hypertension, previous [place], patient was actually admitted on 08/30/2023, admitted with the chief complaint of shortness of breath and cough. Patient tested positive for RSV on his admission, and chest x-ray showed bibasilar opacities. Patient was also complaining of acute onset chest pain, and he was noted to have elevated troponin. Cardiology saw the patient, and felt that the patient has ischemic cardiomyopathy, in addition he had RSV acute tracheobronchitis/URI secondary to RSV, pro-calcitonin level was also elevated, and patient has been receiving antibiotics in the form of Rocephin and Zithromax. Patient also developed worsening kidney disease, he is known to have history of stage IIIB chronic kidney disease, baseline creatinine is in the range of 1.6-1.8, but considering his worsening renal functioning, patient was seen by nephrology on consultation, and recommended mostly encouraging oral intakes, and avoiding nephrotoxins as well as iron studies. Patient is also now being considered for possible cardiac catheterization. He does have ischemic cardiomyopathy with LV dysfunction and ejection fraction of 35-40%. According to the patient is a lifelong nonsmoker, but during my evaluation the patient had diffuse rhonchi and wheezing bilaterally. Patient has been almost BiPAP dependent with IPAP of 12 and EPAP of 6 and 40% FiO2, does not feel well when he gets switched to nasal cannula continues to have intermittent episodes of cough wheezing and shortness of breath. Again the patient has no previous history of COPD and he had no review a smoking history according to the patient. Chest x-ray from yesterday showed left lower lobe atelectasis, possible pneumonia, no evidence of congestive heart failure. Again his pro-calcitonin level was noted in the range of 0.5 7. The patient is seen today 09/04/2023 in follow-up on the selective care unit. He is currently resting comfortably in bed. Awake and alert in no acute distress. He is improved today compared to yesterday. Currently off the BiPAP and maintaining O2 saturations in the 90s on 6 L/m per nasal cannula. He's been afebrile. Hemodynamically stable. He did undergo cardiac catheterization today which did reveal a 70-80% distal left main disease, 100% ostial LAD occlusion with faint right to left collaterals, 80-90% ostial PDA, 80% proximal OM1 occlusion. Current plan is to treat medically with a surgical consultation. White count 5.8. Hemoglobin 10.5. Platelets 187. Sodium 136. Potassium 4.3. Bicarb 22. BUN 53. Creatinine 1.50. He remains on a heparin drip. Continued on bronchodilators, Solu-Medrol. He is on IV diuretics. Currently in a -1.8 L balance. He remains on ceftriaxone. Completed azithromycin. Patient was reexamined today on 09/05/2023, continues to have shortness of breath and wheezing, nonetheless the wheezing seems to be improving, and I have transitioned his methylprednisolone to oral prednisone. Patient had cardiac catheterization, and it showed significant coronary artery disease, cardiothoracic surgery was consulted, however considering the patient's overall issues at present he is not a good candidate for surgery at this point. Patient remains BiPAP dependent, WBC count is 11.1 hemoglobin 10.4 basic metabolic profile is normal, creatinine is 1.68, baseline is 1.7 chest x-ray from 09/03, showed bilateral perihilar infiltrates, improving compared to his previous chest x-ray Patient was reevaluated today on 09/06/2023. Patient is feeling better, remains on BiPAP, however I am recommending that he goes on nasal cannula. Chest x-ray has shown significant improvement, minimal atelectasis is noted at the left base, otherwise chest x-ray is improved. Patient is on BiPAP, and I'm recommending that he goes to nasal cannula, O2 sats is 99% on 40% BiPAP. Elect rolytes are normal BUN is 69 and creatinine 1.81 blood sugar is 225. Patient is now off heparin, and he is on aspirin and Plavix instead. Cardiology is considering intervention on his LAD disease, since the patient is a poor candidate for surgery. However considering about his renal status and elevated creatinine Progress note dated 09/07/2023. This is an 82-year-old male who is seen today in room 375. The patient's currently on BiPAP, settings of 14/6, and 40%. He did test positive for r espiratory syncytial virus. The patient is also receiving saline at 20 mL an hour. Clinically, he looks reasonably stable. He states that he is feeling better. Laboratory data includes a white count of 9.7, hemoglobin 10.3, hematocrit 31.6, and a platelet count of 195,000. Sodium 134, potassium 4.8, chlorides 103, CO2 23, BUN 67, and creatinine 1.62. Chest x-ray from September 06 shows bibasilar atelectasis. Objective - Vital Signs Vital signs: Vital Signs Temp 97.3 F L 09/07/23 08:00 Pulse 60 09/07/23 11:48 Resp 16 09/07/23 08:00 BP 130/62 09/07/23 08:00 Pulse Ox 99 09/07/23 08:00 FiO2 40 09/07/23 11:34 Intake & Output 09/06/23 09/07/23 09/07/23 18:59 06:59 18:59 Intake Total 590 180 Output Total 300 200 400 Balance 290 -200 -220 Weight 124 kg Intake: Oral 590 180 Output: Urine 300 200 400 Other: Voiding Method Toilet Toilet Toilet Urinal Urinal Urinal # Bowel Movements 1 1 - Exam No acute distress, oriented 3. BiPAP mask in place. HEENT examination is grossly unremarkable. Neck supple. Full range of motion. No adenopathy thyromegaly or neck vein distention. Cardiovascular examination reveals regular rhythm rate. S1-S2 normal. No S3 or S4. No discernible murmur noted. Heart sounds distant. Heart rate 60 bpm. Lungs reveal rhonchi. No wheezes or crackles. Breath sounds equal bilaterally. Saturations 97%. Abdomen soft bowel sounds are heard. No masses or tenderness. Extremities are intact. No cyanosis clubbing or edema. Skin is without rash or lesion. Neurologic examination is brief but nonfocal. - Labs CBC & Chem 7: 09/07/23 06:37 09/07/23 06:37 Labs: Abnormal Lab Results - Last 24 Hours (Table) 09/06/23 09/06/23 09/07/23 Range/Units 16:21 20:13 05:51 RBC (4.30-5.90) m/uL Hgb (13.0-17.5) gm/dL Hct (39.0-53.0) % Sodium (137-145) mmol/L BUN (9-20) mg/dL Creatinine (0.66-1.25) mg/dL Glucose (74-99) mg/dL POC Glucose (mg/dL) 365 H 362 H 295 H (70-110) mg/dL Calcium (8.4-10.2) mg/dL Magnesium (1.6-2.3) mg/dL Total Protein (6.3-8.2) g/dL Albumin (3.5-5.0) g/dL 09/07/23 09/07/23 09/07/23 Range/Units 06:37 06:37 11:31 RBC 3.64 L (4.30-5.90) m/uL Hgb 10.3 L (13.0-17.5) gm/dL Hct 31.6 L (39.0-53.0) % Sodium 134 L (137-145) mmol/L BUN 67 H (9-20) mg/dL Creatinine 1.62 H (0.66-1.25) mg/dL Glucose 248 H (74-99) mg/dL POC Glucose (mg/dL) 286 H (70-110) mg/dL Calcium 7.9 L (8.4-10.2) mg/dL Magnesium 2.4 H (1.6-2.3) mg/dL Total Protein 5.8 L (6.3-8.2) g/dL Albumin 3.0 L (3.5-5.0) g/dL Assessment and Plan Assessment: Acute hypoxemic respiratory failure secondary to RSV associated tracheobronchitis. Acute community-acquired pneumonia. Reactive bronchospasm and bronchial inflammation. Acute systolic CHF. Acute on chronic kidney disease. Benign essential hypertension. History of CVA. History of PTSD. Triple-vessel CAD. Plan: Plan dated 09/07/2023. The patient continues on bronchodilators, antibiotics, corticosteroids, and updrafts. The patient is currently on BiPAP, but can be converted nasal O2. Additional recommendations and suggestions are forthcoming. We will continue to follow the patient, make recommendations along the way. Labs, x-rays, medications are reviewed. Chest x-ray from September 06 shows bi-basilar atelectasis. No additional recommendations are made. Prognosis is certainly guarded. Time with Patient: Less than 30
--- NOTE | 2023-09-07 14:59 | P.PN ---
Subjective Progress Note Date: 09/07/23 Hospital course: Patient is a very pleasant 82-year-old male with a past medical history of CAD with previous CO and stenting of LAD on dual antiplatelet therapy with aspirin and Plavix, hypertension, hyperlipidemia, CVA, stage IIIB chronic kidney disease, and BPH. Patient presented to the emergency department on 08/30/23 with a chief complaint of shortness of breath and reports of crushing chest pain. Upon arrival to our facility patient was found to be in acute respiratory distress with respiratory rate of 32 breaths per minute and SpO2 of 90% on 15 L O2 via and nonrebreather mask requiring immediate placement on BiPAP. Vital signs otherwise showed hypertension with blood pressure 182/96, tachycardia with heart rate 113, and elevated temp with axillary temp documented at 101.6F. EKG completed showing sinus tachycardia at 103 bpm with a new onset left bundle branch block. Labs completed and reviewed. CBC showing leukocytosis with WBC count of 13.0. Coagulation profile showing elevated PTT of 21.7 and d-dimer of 2.13. BMP showing acute kidney injury on chronic kidney disease with BUN of 41, creatinine 1.70, and GFR of 37 with baseline creatinine of 1.3. Liver profile showing elevated alkaline phosphatase of 174. Troponin 0.013 and proBNP 1470. Influenza A, influenza B, and Covid PCR were all negative and RSV was positive. Patient was admitted under our services with consultation to cardiology and pulmonology. Troponins trended increasing from initial 0.013 up to 4.650. Repeat EKG completed still showing sinus mechanism at 84 bpm with continued left bundle branch block. Patient was started on heparin infusion. Bilateral lower extremity Dopplers were obtained negative for DVT, secondary to need for continuous BiPAP patient was unable to undergo CTA. Patient remained in acute hypoxic respiratory failure requiring continuous BiPAP and on heparin infusion secondary to NSTEMI. Echocardiogram completed showing a reduced EF of 35-40% with mid to distal anteroseptal and anterior wall hypokinesia and anterioapical hypokinesiaOn 09/04/23 patient underwent a cardiac catheterization showing severe occlusive coronary artery disease with 70-80% stenosis of distal left main, 100% of ostial LAD, 80-90% of ostial PDA, and 80% of proximal obtuse marginal. Cardiology recommending consultation to cardiothoracic surgery for revascularization. Cardiothoracic surgery evaluated stating patient is a very poor surgical candidate and not a surgical candidate for revascularization surge ry. Physical exam: Patient seen and fully evaluated at bedside this morning. He remains on BiPAP with SpO2 of 99%. Again discussed with patient goals of attempting to wean him off of bypass. RN reports patient tolerates being off of BiPAP to eat and usu ally requires 5-6 L high flow nasal cannula. Discussed with RN will continue to attempt to wean patient off of BiPAP and monitor his improvement. Vital signs reviewed and stable. General: Nontoxic, no distress and appears stated age. Derm: Skin warm and dry, normal coloration for ethnicity. Head: Atraumatic, normocephalic and symmetric. Eyes: EOMs intact, no lid lag, and anicteric sclera Mouth: no lip lesions, mucus membranes moist Cardiovascular: regular rate and rhythm with normal S1S2, no murmur, positive posterior tibial pulses bilaterally, and cap refill < 2 seconds. Lungs: Respirations even, regular, and unlabored on BiPAP. Lungs diminished with diffuse soft expiratory wheezes bilaterally. Abdominal: soft, nontender to palpation, no guarding, no appreciable organomegaly Ext: ROM intact. No gross muscle atrophy, no edema, no contractures Neuro: Speech clear, face symmetrical and CN II-XII grossly intact with no noted focal neuro deficits Psych: Alert and oriented to person, place, time, and situation. Appropriate and pleasant affect. Assessment and Plan of Care: Acute respiratory failure with hypoxia RSVinfection with tracheobronchitis and community-acquired pneumonia Sepsis secondary to above -Continue BiPAP, wean once patient tolerates -Patient to remain on continuous Telemetry monitoring. -Monitor Pulse-oximetry -Duonebs scheduled four times daily and as needed for SOB and/or wheezing -Continue Pulmicort 1 puff twice daily -Steroids: Continue Prednisone 40 mg daily beginning today. -Antibiotics: Patient completed course of IV antibiotics with azithromycin and Rocephin. -Repeat chest x-ray completed 09/06/23 showed negative for acute cardiopulmonary process showing basilar airspace opacities similar likely representing atelectasis. NSTEMI with triple vessel occlusive coronary artery disease Newly developed left bundle branch block Acute systolic heart failure with EF of 35-40% Elevated d-dimer, bilateral lower extremity Dopplers were negative patient is unstable to be taken down for CTA at this time Hypertension Hyperlipidemia History of CAD History of CVA -Echocardiogram showing a reduced EF of 35-40% with mid to distal anteroseptal and anterior wall hypokinesia and anterioapical hypokinesia. -On 09/04/23 patient underwent a cardiac catheterization showing severe occlusive coronary artery disease with 70-80% stenosis of distal left main, 100% of ostial LAD, 80-90% of ostial PDA, and 80% of proximal obtuse marginal. -Cardiothoracic surgery evaluated stating patient is a very poor surgical candidate and not a surgical candidate for revascularization surgery.Cardiothoracic surgery evaluated stating patient is a very poor surgical candidate and not a surgical candidate for revascularization surgery. -Cardiology following, reviewed documentation in chart. Recommending continued aggressive medical management and discontinued IV heparin and starting patient on losartan 12.5 mg daily in addition to current cardiac medication regimen. -Patient to remain on continuous telemetry monitoring. -Patient to continue with cardiac medication regimen with aspirin 81 mg daily, atorvastatin 80 mg nightly, carvedilol 6.25 mg twice daily, Plavix 75 mg daily, and losartan 12.5 mg daily. Acute kidney injury on stage IIIb chronic kidney disease BUN 67, creatinine 1.62, and GFR of 39 with baseline creatinine of 1.3. Acute kidney injury possibly secondary to cardiorenal syndrome, we will con tinue to monitor closely. Cardiology starting patient on losartan 12.5 mg daily. Patient remains on continuous BiPAP, cardiology and pulmonology continue to follow and pt was evaluated by cardiothoracic surgery. It was determined patient is a very poor surgical candidate and not a candidate for revascularization surgery. Prognosis remains guarded at this time. Discussed with RN, recommending weaning patient off of BiPAP as he tolerates. Data and imaging reviewed: -Morning labs reviewed: CBC showing normocytic anemia with hemoglobin of 10.3. BMP revealing mild hyponatremia with sodium of 134 and stable but elevated renal function with BUN of 67, creatinine 1.62, GFR 39. Blood glucose this morning was elevated at 248. Liver profile unremarkable. -Vital signs reviewed. Blood pressure 130/62, heart rate 79, respiratory rate 16, temp 97.3F, SpO2 of 99% on BiPAP with FiO2 of 40%. CODE STATUS: Full code DVT prophylaxis: heparin Anticipated discharge date: Clinical course to determine Anticipated discharge place: clinical course to determine Patient was seen independently by Nurse Pracitioner. This document was prepared using [employer] software. Please allow for errors in oncology rep specialist, while rare they do occur. José Ortiz FI[employer] B[employer]ION CHIEF rendered care for this patient independently, reviewed the findings and plan as documented in the note above. I did not physically speak with or examine the patient on this date. Objective - Vital Signs Vital signs: Vital Signs Temp 97.6 F 09/06/23 20:00 Pulse 64 09/07/23 08:02 Resp 16 09/07/23 04:00 BP 138/60 09/07/23 04:00 Pulse Ox 99 09/07/23 07:40 FiO2 40 09/07/23 08:02 Intake & Output 09/06/23 09/07/23 09/07/23 18:59 06:59 18:59 Intake Total 590 180 Output Total 300 200 Balance 290 -200 180 Weight 124 kg Intake: Oral 590 180 Output: Urine 300 200 Other: Voiding Method Toilet Toilet Urinal Urinal # Bowel Movements 1 1 - Labs CBC & Chem 7: 09/07/23 06:37 09/07/23 06:37 Labs: Abnormal Lab Results - Last 24 Hours (Table) 09/06/23 09/06/23 09/06/23 Range/Units 11:44 16:21 20:13 RBC (4.30-5.90) m/uL Hgb (13.0-17.5) gm/dL Hct (39.0-53.0) % Sodium (137-145) mmol/L BUN (9-20) mg/dL Creatinine (0.66-1.25) mg/dL Glucose (74-99) mg/dL POC Glucose (mg/dL) 225 H 365 H 362 H (70-110) mg/dL Calcium (8.4-10.2) mg/dL Magnesium (1.6-2.3) mg/dL Total Protein (6.3-8.2) g/dL Albumin (3.5-5.0) g/dL 09/07/23 09/07/23 09/07/23 Range/Units 05:51 06:37 06:37 RBC 3.64 L (4.30-5.90) m/uL Hgb 10.3 L (13.0-17.5) gm/dL Hct 31.6 L (39.0-53.0) % Sodium 134 L (137-145) mmol/L BUN 67 H (9-20) mg/dL Creatinine 1.62 H (0.66-1.25) mg/dL Glucose 248 H (74-99) mg/dL POC Glucose (mg/dL) 295 H (70-110) mg/dL Calcium 7.9 L (8.4-10.2) mg/dL Magnesium 2.4 H (1.6-2.3) mg/dL Total Protein 5.8 L (6.3-8.2) g/dL Albumin 3.0 L (3.5-5.0) g/dL
[2023-09-07 16:47] LABS: Glucose,Whole Blood 308 mg/dL (70-110)
[2023-09-07] MEDS: TAMSULOSIN 0.4 MG CAP.ER.24H PO SCH (17:32)
[2023-09-07] MEDS: BENZONATATE 100 MG CAP PO PRN ×2 (17:33→20:18)
[2023-09-07 20:10] LABS: Glucose,Whole Blood 388 mg/dL (70-110)
[2023-09-07] MEDS: ALPRAZolam 0.5 MG TAB PO SCH (20:18)
[2023-09-07] MEDS: INSULIN DETEMIR (LEVEMIR) 100 UNIT/ML SYR SQ SCH (20:18)
[2023-09-07] MEDS: ATORVASTATIN 80 MG TAB PO SCH (20:18)
[2023-09-08] MEDS: BENZONATATE 100 MG CAP PO PRN ×3 (03:39→21:06)
[2023-09-08 06:20] LABS: Glucose,Whole Blood 250 mg/dL (70-110)
[2023-09-08] MEDS: INSULIN ASPART (NovoLOG) 100 UNIT/ML VIAL SQ SCH ×7 (06:33→21:06)
[2023-09-08] MEDS: carvediloL 6.25 MG TAB PO SCH ×2 (06:33→16:39)
[2023-09-08] MEDS: FINASTERIDE 5 MG TAB PO SCH (08:43)
[2023-09-08] MEDS: predniSONE 20 MG TAB PO SCH (08:43)
[2023-09-08] MEDS: ASPIRIN 81 MG PO SCH (08:43)
[2023-09-08] MEDS: FUROSEMIDE 10 MG/ML 4 ML VIAL IV SCH (08:43)
[2023-09-08] MEDS: PANTOPRAZOLE 40 MG TABLET PO SCH (08:43)
[2023-09-08] MEDS: LOSARTAN 25 MG TAB PO SCH (08:43)
[2023-09-08] MEDS: HEPARIN SODIUM,PORCINE 5,000 UNIT/ML 1 ML VIAL SQ SCH ×2 (08:43→21:07)
[2023-09-08] MEDS: CLOPIDOGREL 75 MG TAB PO SCH (08:43)
[2023-09-08] MEDS: BUDESONIDE 1 MG/2 ML NEBU INHALATION SCH ×2 (08:47→20:15)
[2023-09-08] MEDS: IPRATROPIUM-ALBUTEROL 3 ML NEB INHALATION SCH ×4 (08:47→20:15)
--- NOTE | 2023-09-08 11:35 | P.PN ---
Subjective Patient is seen for follow-up for chronic kidney disease. Baseline creatinine 1.2-1.4 mg/dL Status post cardiac catheterization with significant disease and deemed to be not good surgical candidate at this time. Patient is also maintained on IV Lasix for CHF and volume overload noted on chest x-ray. He also has underlying RSV infection. No significant complaints today. Serum creatinine decreased to 1.6 yesterday. 24-hour urine output documented at 2090 mL. . Patient is maintained on BiPAP Objective - Vital Signs Vital signs: Vital Signs Temp 97.3 F L 09/08/23 08:40 Pulse 68 09/08/23 09:05 Resp 17 09/08/23 08:40 BP 152/72 09/08/23 08:40 Pulse Ox 95 09/08/23 08:40 FiO2 30 09/08/23 04:07 Intake & Output 09/07/23 09/08/23 09/08/23 18:59 06:59 18:59 Intake Total 410 354 Output Total 1100 990 Balance -690 -990 354 Weight 135 kg 135 kg Intake: Intake, IV Titration 50 Amount cefTRIAXone 1 gm In 50 Sodium Chloride 0.9% 50 ml @ 100 mls/hr IVPB Q24HR [facility] Rx#:[id number] Oral 360 354 Output: Urine 1100 990 Other: Voiding Method Toilet Toilet Toilet Urinal Urinal Urinal # Bowel Movements 1 - Exam Patient is awake, comfortable, no acute distress Maintained on BiPAP Examination of the heart S1 and S2 Examination of the lungs bilateral breath sounds are heard Abdomen is soft obese nontender Examination of lower extremities shows trace edema bilaterally [employer]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 Chronic kidney disease stage IIIB secondary to diabetic kidney disease with baseline creatinine 1.4-1.6. No hydronephrosis noted on kidney ultrasound. Possible mild acute kidney injury. Nonoliguric 2. Acute hypoxic respiratory failure. 3. Acute RSV infection. 4. History of coronary artery disease with prior stenting. 5. Diabetes mellitus. 6. Chronic systolic CHF with ejection fraction of 35-40%. 7. Anemia of chronic kidney disease. Iron deficiency noted. 8. Non-ST elevated myocardial infarction. Cardiology following. Status post cardiac catheterization which showed significant disease and surgery has been consulted. Plan: Continue off of IV fluids Continue with Lasix. It has been changed to oral. Repeat labs in a.m. Avoid nephrotoxic agents
--- NOTE | 2023-09-08 11:44 | P.PN ---
Subjective Progress Note Date: 09/08/23 Principal diagnosis: Shortness of breath. This is an 82-year-old white male with history of multiple medical problems including CVA, TIA, type 2 diabetes, hypertension, previous NE, patient was actually admitted on 08/30/2023, admitted with the chief complaint of shortness of breath and cough. Patient tested positive for RSV on his admission, and chest x-ray showed bibasilar opacities. Patient was also complaining of acute onset chest pain, and he was noted to have elevated troponin. Cardiology saw the patient, and felt that the patient has ischemic cardiomyopathy, in addition he had RSV acute tracheobronchitis/URI secondary to RSV, pro-calcitonin level was also elevated, and patient has been receiving antibiotics in the form of Rocephin and Zithromax. Patient also developed worsening kidney disease, he is known to have history of stage IIIB chronic kidney disease, baseline creatinine is in the range of 1.6-1.8, but considering his worsening renal functioning, patient was seen by nephrology on consultation, and recommended mostly encouraging oral intakes, and avoiding nephrotoxins as well as iron studies. Patient is also now being considered for possible cardiac catheterization. He does have ischemic cardiomyopathy with LV dysfunction and ejection fraction of 35-40%. According to the patient is a lifelong nonsmoker, but during my evaluation the patient had diffuse rhonchi and wheezing bilaterally. Patient has been almost BiPAP dependent with IPAP of 12 and EPAP of 6 and 40% FiO2, does not feel well when he gets switched to nasal cannula continues to have intermittent episodes of cough wheezing and shortness of breath. Again the patient has no previous history of COPD and he had no review a smoking history according to the patient. Chest x-ray from yesterday showed left lower lobe atelectasis, possible pneumonia, no evidence of congestive heart failure. Again his pro-calcitonin level was noted in the range of 0.5 7. The patient is seen today 09/04/2023 in follow-up on the selective care unit. He is currently resting comfortably in bed. Awake and alert in no acute distress. He is improved today compared to yesterday. Currently off the BiPAP and maintaining O2 saturations in the 90s on 6 L/m per nasal cannula. He's been afebrile. Hemodynamically stable. He did undergo cardiac catheterization today which did reveal a 70-80% distal left main disease, 100% ostial LAD occlusion with faint right to left collaterals, 80-90% ostial PDA, 80% proximal OM1 occlusion. Current plan is to treat medically with a surgical consultation. White count 5.8. Hemoglobin 10.5. Platelets 187. Sodium 136. Potassium 4.3. Bicarb 22. BUN 53. Creatinine 1.50. He remains on a heparin drip. Continued on bronchodilators, Solu-Medrol. He is on IV diuretics. Currently in a -1.8 L balance. He remains on ceftriaxone. Completed azithromycin. Patient was reexamined today on 09/05/2023, continues to have shortness of breath and wheezing, nonetheless the wheezing seems to be improving, and I have transitioned his methylprednisolone to oral prednisone. Patient had cardiac catheterization, and it showed significant coronary artery disease, cardiothoracic surgery was consulted, however considering the patient's overall issues at present he is not a good candidate for surgery at this point. Patient remains BiPAP dependent, WBC count is 11.1 hemoglobin 10.4 basic metabolic profile is normal, creatinine is 1.68, baseline is 1.7 chest x-ray from 09/03, showed bilateral perihilar infiltrates, improving compared to his previous chest x-ray Patient was reevaluated today on 09/06/2023. Patient is feeling better, remains on BiPAP, however I am recommending that he goes on nasal cannula. Chest x-ray has shown significant improvement, minimal atelectasis is noted at the left base, otherwise chest x-ray is improved. Patient is on BiPAP, and I'm recommending that he goes to nasal cannula, O2 sats is 99% on 40% BiPAP. Elect rolytes are normal BUN is 69 and creatinine 1.81 blood sugar is 225. Patient is now off heparin, and he is on aspirin and Plavix instead. Cardiology is considering intervention on his LAD disease, since the patient is a poor candidate for surgery. However considering about his renal status and elevated creatinine Progress note dated 09/07/2023. This is an 82-year-old male who is seen today in room 375. The patient's currently on BiPAP, settings of 14/6, and 40%. He did test positive for r espiratory syncytial virus. The patient is also receiving saline at 20 mL an hour. Clinically, he looks reasonably stable. He states that he is feeling better. Laboratory data includes a white count of 9.7, hemoglobin 10.3, hematocrit 31.6, and a platelet count of 195,000. Sodium 134, potassium 4.8, chlorides 103, CO2 23, BUN 67, and creatinine 1.62. Chest x-ray from September 06 shows bibasilar atelectasis. Progress note dated 09/08/2023. 82-year-old male, seen today in room 375. The patient continues on BiPAP, with settings of 14/6, and 30%. We've not on BiPAP, he's on 2 L of oxygen by nasal cannula. The patient tested positive for RSV, was thought to have viral pneumonia/viral tracheobronchitis. The patient is not receiving any IV fluids. He seemed relatively comfortable, in a sitting up in a chair, next to his bed. Laboratory data today only includes a glucose of 250. No chest x-ray today. Objective - Vital Signs Vital signs: Vital Signs Temp 97.3 F L 09/08/23 08:40 Pulse 68 09/08/23 09:05 Resp 17 09/08/23 08:40 BP 152/72 09/08/23 08:40 Pulse Ox 95 09/08/23 08:40 FiO2 30 09/08/23 04:07 Intake & Output 09/07/23 09/08/23 09/08/23 18:59 06:59 18:59 Intake Total 410 354 Output Total 1100 990 Balance -690 -990 354 Weight 135 kg 135 kg Intake: Intake, IV Titration 50 Amount cefTRIAXone 1 gm In 50 Sodium Chloride 0.9% 50 ml @ 100 mls/hr IVPB Q24HR [facility] Rx#:[id number] Oral 360 354 Output: Urine 1100 990 Other: Voiding Method Toilet Toilet Toilet Urinal Urinal Urinal # Bowel Movements 1 - Exam No acute distress, oriented 3. BiPAP mask in place. HEENT examination is grossly unremarkable. Neck supple. Full range of motion. No adenopathy thyromegaly or neck vein distention. Cardiovascular examination reveals regular rhythm rate. S1-S2 normal. No S3 or S4. No discernible murmur noted. Heart sounds distant. Heart rate 68 bpm. Lungs reveal rhonchi. No wheezes or crackles. Breath sounds equal bilaterally. Saturations 95 %. Abdomen soft bowel sounds are heard. No masses or tenderness. Extremities are intact. No cyanosis clubbing or edema. Skin is without rash or lesion. Neurologic examination is brief but nonfocal. - Labs CBC & Chem 7: 09/07/23 06:37 09/07/23 06:37 Labs: Abnormal Lab Results - Last 24 Hours (Table) 09/07/23 09/07/23 09/08/23 Range/Units 16:46 20:08 06:18 POC Glucose (mg/dL) 308 H 388 H 250 H (70-110) mg/dL Assessment and Plan Assessment: Acute hypoxemic respiratory failure secondary to RSV associated tracheobronch itis. Acute community-acquired pneumonia. Reactive bronchospasm and bronchial inflammation. Acute systolic CHF. Acute on chronic kidney disease. Benign essential hypertension. History of CVA. History of PTSD. Triple-vessel CAD. Plan: Plan dated 09/07/2023. The patient continues on bronchodilators, antibiotics, corticosteroids, and updrafts. The patient is currently on BiPAP, but can be converted nasal O2. Additional recommendations and suggestions are forthcoming. We will continue to follow the patient, make recommendations along the way. Labs, x-rays, medications are reviewed. Chest x-ray from September 06 shows bi-basilar atelectasis. No additional recommendations are made. Prognosis is certainly guarded. Plan dated 09/08/2023. The patient appears to be relatively comfortable. He goes between BiPAP, and 2 L by nasal cannula. Additional recommendations and suggestions are forthcoming. He continues on bronchodilators, antibiotics, corticosteroids, and updrafts. Labs, x-rays, medications are reviewed. We will continue to follow the patient, make recommendations along the way. Prognosis is guarded. Time with Patient: Less than 30
[2023-09-08 11:48] LABS: Glucose,Whole Blood 305 mg/dL (70-110)
--- NOTE | 2023-09-08 12:16 | P.PN ---
Subjective Progress Note Date: 09/08/23 HISTORY OF PRESENT ILLNESS: This Is a pleasant 82-year-old gentleman who follows in the office with Dr. Nelson. He has a history of STEMI in September at which time he underwent stenting of the LAD. He subsequently stopped taking his medications and he returned again with evidence of an anterior wall VA and underwent angioplasty and aspiration thrombectomy by Dr. Davis. Subsequently had CVA. He been feeling fairly well since around November of this year. Over the last few days he's been feeling significantly more short of breath. He decided to call EMS when he began developing chest discomfort. Upon presentation he was noted to be in sinus rhythm with left bundle branch block which has not been diagnosed in the past. He is positive for RSV. Chest x-ray showed bibasilar opacifications. Initially troponin came back normal at 0.013 with subsequent troponin of 4.65. At the time of my examination the patient is chest pain-free. His breathing is better. His creatinine is 1.7 which is up compared to his baseline. He follows regularly with Dr. Barker. Myoglobin 12.7. He complains of left lower extremity edema and ultrasound was negative for DVT. His vital signs up and stable. At the time of my examination he is resting comfortably in bed. He denies complaints of chest discomfort. He's had no palpitations, dizziness or lightheadedness. He denies any orthopnea or PND. Continues to complain of shortness of breath but improved. 08/31/2023 Patient examined this morning at the bedside. Patient currently denies chest pain or pressure. He reports shortness of breath. Patient has required increased oxygen overnight and is currently on 3 L nasal cannula. Patient's creatinine declined today to 1.90. He was initially scheduled for cardiac catheterization but this has been canceled and will be rescheduled when patient is medically stable. September 01 2023 Patient examined this morning at the bedside. Patient denies shortness of breath. He does report having an episode of chest discomfort this morning. He denies any chest pain at the time of examination. He remains on IV heparin. Echocardiogram completed revealing ejection fraction 35-40%, mid to distal anterior septal, anterior wall hypokinesia, anterior apical hypokinesia, mild aortic stenosis, mild MR and trace TR September 02 2023 Patient examined this morning at the bedside. Patient developed worsening shortness of breath overnight and required BiPAP. Chest x-ray this morning revealed bilateral lower lobe infiltrates correlate for pneumonia otherwise consider CHF. He remains on IV heparin. Creatinine 1.78. 09/03/2023 Patient examined this morning at the bedside. Patient remains on BiPAP. He reports feeling short of breath when the BiPAP is removed and also has a drop in his oxygen saturations. He currently denies any chest pain or pressure. He remains on IV heparin. 09/05 Patient underwent left heart catheterization yesterday showing occlusion of his previous LAD stent with right to left collaterals, 80-90% proximal PDA lesion which is somewhat similar to prior and mild disease of the circumflex. LVEDP was noted to be elevated at 23. Creatinine remained fairly stable at 1.68. Still remains intermittently on BiPAP. He also has been receiving IV Lasix 40 mg IV daily with good urine output. Patient seen by cardiothoracic surgery and deemed high risk and nonsurgical candidate for bypass. 09/06 the patient is on BiPAP and he states he's taken her off to eat only. He states his breathing is better. No chest pain. Blood pressure 136/63, heart rate is in the 60s, pulse ox 99% on FiO2 of 40 with BiPAP. Repeat blood work reveals sodium 135, potassium 4.4, BUN 69 and creatinine 1.81. Chest x-ray reveals no acute cardiopulmonary process. Basilar airspace opacities similar and could represent atelectasis. Yesterday, losartan was started. He has continued on aspirin 81 mg daily, atorvastatin 80 mg daily, Coreg, Plavix to maximize medical therapy 09/07 Patient remains on BiPAP with FiO2 of 40% and pulse ox 99%. Heart rate 59, blood pressure 130/62, afebrile. Telemetry is sinus rhythm. BUN 67 and creatinine 1.62, potassium 4.8, hemoglobin 10.3. Patient is maintained on IV Lasix 40 mg daily and followed closely by nephrology and pulmonary medicine. 09/08 Patient is a longer on BiPAP, currently 2 L nasal cannula with pulse ox of 95%. Heart rate is in the 60s. Blood pressure 152/72. No complaints of chest pain. PHYSICAL EXAM: VITAL SIGNS: Reviewed. GENERAL: Well-developed in no acute distress. NECK: Supple. No JVD or thyromegaly LUNGS: Respirations even and unlabored. Lungs essentially clear to auscultation bilaterally. HEART: Regular rate and rhythm. S1 and S2 heard. EXTREMITIES: Normal range of motion. No clubbing or cyanosis. Peripheral pulses intact. No lower extremity edema ASSESSMENT: Non-STEMI, possibly related to occlusion of LAD stent New-onset left bundle branch block RSV Acute hypoxic respiratory failure Acute kidney injury Chronic kidney disease Coronary artery disease with previous stenting of the LAD Ischemic cardiomyopathy History of CVA PLAN: Continue current cardiac medications Patient IV Lasix to Lasix 40 mg oral daily No plan for cardiac intervention draining sinus hospitalization. Patient is cleared for discharge with follow-up with Dr. Nelson in 2 weeks. Nurse practitioner note has been reviewed, I agree with the documented findings and plan of care. Patient was seen and examined. Objective - Vital Signs Vital signs: Vital Signs Temp 97.3 F L 09/07/23 08:00 Pulse 68 09/08/23 08:47 Resp 16 09/08/23 03:29 BP 145/66 09/08/23 03:29 Pulse Ox 96 09/08/23 03:29 FiO2 30 09/08/23 04:07 Intake & Output 09/07/23 09/08/23 09/08/23 18:59 06:59 18:59 Intake Total 410 Output Total 1100 990 Balance -690 -990 Weight 135 kg Intake: Intake, IV Titration 50 Amount cefTRIAXone 1 gm In 50 Sodium Chloride 0.9% 50 ml @ 100 mls/hr IVPB Q24HR [facility] Rx#:[id number] Oral 360 Output: Urine 1100 990 Other: Voiding Method Toilet Toilet Urinal Urinal # Bowel Movements 1 - Labs CBC & Chem 7: 09/07/23 06:37 09/07/23 06:37 Labs: Abnormal Lab Results - Last 24 Hours (Table) 09/07/23 09/07/23 09/07/23 Range/Units 11:31 16:46 20:08 POC Glucose (mg/dL) 286 H 308 H 388 H (70-110) mg/dL 09/08/23 Range/Units 06:18 POC Glucose (mg/dL) 250 H (70-110) mg/dL
[2023-09-08 16:31] LABS: Glucose,Whole Blood 361 mg/dL (70-110)
[2023-09-08] MEDS: TAMSULOSIN 0.4 MG CAP.ER.24H PO SCH (16:38)
--- NOTE | 2023-09-08 16:51 | P.PN ---
Subjective Progress Note Date: 09/08/23 Hospital course: Patient is a very pleasant 82-year-old male with a past medical history of CAD with previous [place] and stenting of LAD on dual antiplatelet therapy with aspirin and Plavix, hypertension, hyperlipidemia, CVA, stage IIIB chronic kidney disease, and BPH. Patient presented to the emergency department on 08/30/23 with a chief complaint of shortness of breath and reports of crushing chest pain. Upon arrival to our facility patient was found to be in acute respiratory distress with respiratory rate of 32 breaths per minute and SpO2 of 90% on 15 L O2 via and nonrebreather mask requiring immediate placement on BiPAP. Vital signs otherwise showed hypertension with blood pressure 182/96, tachycardia with heart rate 113, and elevated temp with axillary temp documented at 101.6F. EKG completed showing sinus tachycardia at 103 bpm with a new onset left bundle branch block. Labs completed and reviewed. CBC showing leukocytosis with WBC count of 13.0. Coagulation profile showing elevated PTT of 21.7 and d-dimer of 2.13. BMP showing acute kidney injury on chronic kidney disease with BUN of 41, creatinine 1.70, and GFR of 37 with baseline creatinine of 1.3. Liver profile showing elevated alkaline phosphatase of 174. Troponin 0.013 and proBNP 1470. Influenza A, influenza B, and Covid PCR were all negative and RSV was positive. Patient was admitted under our services with consultation to cardiology and pulmonology. Troponins trended increasing from initial 0.013 up to 4.650. Repeat EKG completed still showing sinus mechanism at 84 bpm with continued left bundle branch block. Patient was started on heparin infusion. Bilateral lower extremity Dopplers were obtained negative for DVT, secondary to need for continuous BiPAP patient was unable to undergo CTA. Patient remained in acute hypoxic respiratory failure requiring continuous BiPAP and on heparin infusion secondary to NSTEMI. Echocardiogram completed showing a reduced EF of 35-40% with mid to distal anteroseptal and anterior wall hypokinesia and anterioapical hypokinesiaOn 09/04/23 patient underwent a cardiac catheterization showing severe occlusive coronary artery disease with 70-80% stenosis of distal left main, 100% of ostial LAD, 80-90% of ostial PDA, and 80% of proximal obtuse marginal. Cardiology recommending consultation to cardiothoracic surgery for revascularization. Cardiothoracic surgery evaluated stating patient is a very poor surgical candidate and not a surgical candidate for revascularization surge ry. Physical exam: Patient seen and fully evaluated at bedside this morning. He has successfully been weaned off of BiPAP at this time and is sitting in the chair at bedside currently maintaining SpO2 of 95% on 2 L O2 via nasal cannula. Patient currently denies having any complaints, knees, or concerns at this time. Patient appears to be doing quite well this morning. Vital signs reviewed and stable. General: Nontoxic, no distress and appears stated age. Derm: Skin warm and dry, normal coloration for ethnicity. Head: Atraumatic, normocephalic and symmetric. Eyes: EOMs intact, no lid lag, and anicteric sclera Mouth: no lip lesions, mucus membranes moist Cardiovascular: regular rate and rhythm with normal S1S2, no murmur, positive posterior tibial pulses bilaterally, and cap refill < 2 seconds. Lungs: Respirations even, regular, and unlabored on 2 L O2 via nasal cannula. Lungs diminished with no noted wheezes, rhonchi, or rales. No accessory muscle usage. Abdominal: soft, nontender to palpation, no guarding, no appreciable organo megaly Ext: ROM intact. No gross muscle atrophy, no edema, no contractures Neuro: Speech clear, face symmetrical and CN II-XII grossly intact with no noted focal neuro deficits Psych: Alert and oriented to person, place, time, and situation. Appropriate and pleasant affect. Assessment and Plan of Care: Acute respiratory failure with hypoxia RSV infection with tracheobronchitis and community-acquired pneumonia Sepsis secondary to above -Continue oxygen supplementation as needed to maintain SpO2 equal to or greater than 90%, wean as patient tolerates. -Patient to remain on continuous Telemetry monitoring. -Monitor Pulse-oximetry -Continue Duonebs scheduled four times daily and as needed for SOB and/or wheezing -Continue Pulmicort 1 puff twice daily -Steroids: Continue Prednisone 40 mg daily (day 4 of oral steroids) -Antibiotics: Patient completed course of IV antibiotics with azithromycin and Rocephin. -Repeat chest x-ray completed 09/06/23 showed negative for acute cardiopulmonary process showing basilar airspace opacities similar likely representing atelectasis. NSTEMI with triple vessel occlusive coronary artery disease Newly developed left bundle branch block Acute systolic heart failure with EF of 35-40% Elevated d-dimer, bilateral lower extremity Dopplers were negative patient is unstable to be taken down for CTA at this time Hypertension Hyperlipidemia History of CAD History of CVA -Echocardiogram showing a reduced EF of 35-40% with mid to distal anteroseptal and anterior wall hypokinesia and anterioapical hypokinesia. -On 09/04/23 patient underwent a cardiac catheterization showing severe occlusive coronary artery disease with 70-80% stenosis of distal left main, 100% of ostial LAD, 80-90% of ostial PDA, and 80% of proximal obtuse marginal. -Cardiothoracic surgery evaluated stating patient is a very poor surgical candidate and not a surgical candidate for revascularization surgery.Cardiothoracic surgery evaluated stating patient is a very poor surgical candidate and not a surgical candidate for revascularization surgery. -Cardiology evaluated and clearing patient from cardiac perspective, stating no plans for cardiac intervention during this hospitalization. Recommending continued agressive medical management and outpatient follow-up in their office with Dr. Horvath in 2 weeks. -Patient to continue with cardiac medication regimen with aspirin 81 mg daily, atorvastatin 80 mg nightly, carvedilol 6.25 mg twice daily, Plavix 75 mg daily, and losartan 12.5 mg daily. -Could consider SGLT2 inhibitor if GFR remains > 45 Acute kidney injury on stage IIIb chronic kidney disease Renal function remains elevated but stable with BUN 67, creatinine 1.62, and GFR of 39 with baseline creatinine of 1.3. Data and imaging reviewed: -Vital signs reviewed. Blood pressure 152/72, heart rate 64, respiratory rate 17, temp 97.3F, and SpO2 of 95% on 2 L O2. José Ortiz NP rendered care for this patient independently, reviewed the findings and plan as documented in the note above. I did not physically speak with or examine the patient on this date. CODE STATUS: Full code DVT prophylaxis: heparin Anticipated discharge date: Patient and successfully weaned off of BiPAP today, if continued improvement anticipate discharge home likely within the next [address]. [address]: Home with home care Patient was seen independently by Nurse Pracitioner. This document was prepared using [employer] dictation software. Please allow for errors in health therapist, while rare they do occur. Objective - Vital Signs Vital signs: Vital Signs Temp 97.3 F L 09/07/23 08:00 Pulse 68 09/08/23 08:47 Resp 16 09/08/23 03:29 BP 145/66 09/08/23 03:29 Pulse Ox 96 09/08/23 03:29 FiO2 30 09/08/23 04:07 Intake & Output 09/07/23 09/08/23 09/08/23 18:59 06:59 18:59 Intake Total 410 Output Total 1100 990 Balance -690 -990 Weight 135 kg Intake: Intake, IV Titration 50 Amount cefTRIAXone 1 gm In 50 Sodium Chloride 0.9% 50 ml @ 100 mls/hr IVPB Q24HR [facility] Rx#:[id number] Oral 360 Output: Urine 1100 990 Other: Voiding Method Toilet Toilet Urinal Urinal # Bowel Movements 1 - Labs CBC & Chem 7: 09/07/23 06:37 09/07/23 06:37 Labs: Abnormal Lab Results - Last 24 Hours (Table) 09/07/23 09/07/23 09/07/23 Range/Units 11:31 16:46 20:08 POC Glucose (mg/dL) 286 H 308 H 388 H (70-110) mg/dL 09/08/23 Range/Units 06:18 POC Glucose (mg/dL) 250 H (70-110) mg/dL
[2023-09-08] MEDS: NITROGLYCERIN SL TABS 0.4 MG TAB SUBLINGUAL PRN (17:55)
[2023-09-08] MEDS: guaiFENesin SYRUP 100MG/5ML 200 MG/10 ML CUP PO PRN (18:18)
[2023-09-08 19:58] LABS: Glucose,Whole Blood 422 mg/dL (70-110)
[2023-09-08] MEDS: ALPRAZolam 0.5 MG TAB PO SCH (21:06)
[2023-09-08] MEDS: ATORVASTATIN 80 MG TAB PO SCH (21:06)
[2023-09-08] MEDS: INSULIN DETEMIR (LEVEMIR) 100 UNIT/ML SYR SQ SCH (21:06)
[2023-09-09 06:14] LABS: Glucose,Whole Blood 300 mg/dL (70-110)
[2023-09-09] MEDS: carvediloL 6.25 MG TAB PO SCH ×2 (06:38→17:26)
[2023-09-09] MEDS: INSULIN ASPART (NovoLOG) 100 UNIT/ML VIAL SQ SCH ×7 (06:38→21:10)
[2023-09-09] MEDS ORDERED: INSULIN DETEMIR (LEVEMIR) 100 UNIT/ML SYR SQ STA (08:26)
[2023-09-09 08:47] LABS: HCT 32.1 % (39.0-53.0); HGB 10.5 gm/dL (13.0-17.5); MCH 28.7 pg (25.0-35.0); MCHC 32.7 g/dL (31.0-37.0); MCV 87.9 fL (80.0-100.0); Mean Platelet Volume 9.1; Platelet Count 188 k/uL (150-450); RBC 3.65 m/uL (4.30-5.90); RDW 14.1 % (11.5-15.5)
[2023-09-09] MEDS ORDERED: FUROSEMIDE 40 MG TAB PO SCH (09:00)
[2023-09-09] MEDS: BUDESONIDE 1 MG/2 ML NEBU INHALATION SCH ×2 (09:05→20:21)
[2023-09-09] MEDS: IPRATROPIUM-ALBUTEROL 3 ML NEB INHALATION SCH ×4 (09:05→20:21)
[2023-09-09] MEDS: CLOPIDOGREL 75 MG TAB PO SCH (09:23)
[2023-09-09] MEDS: HEPARIN SODIUM,PORCINE 5,000 UNIT/ML 1 ML VIAL SQ SCH ×2 (09:23→21:10)
[2023-09-09] MEDS: LOSARTAN 25 MG TAB PO SCH (09:23)
[2023-09-09] MEDS: PANTOPRAZOLE 40 MG TABLET PO SCH (09:23)
[2023-09-09] MEDS: ASPIRIN 81 MG PO SCH (09:23)
[2023-09-09] MEDS: predniSONE 20 MG TAB PO SCH (09:23)
[2023-09-09] MEDS: FINASTERIDE 5 MG TAB PO SCH (09:23)
[2023-09-09 09:39] LABS: ALT 40 U/L (4-49); AST 29 U/L (17-59); African American GFR (CKD) 58 (>60 ml/min/1.73 sqM); Alkaline Phosphatase 126 U/L (38-126); Anion Gap 8 mmol/L; Blood Urea Nitrogen 54 mg/dL (9-20); Calcium 8.2 mg/dL (8.4-10.2); Carbon Dioxide 24 mmol/L (22-30); Chloride 102 mmol/L (98-107); Glucose 249 mg/dL (74-99); Magnesium 2.3 mg/dL (1.6-2.3); Non-African American GFR(CKD) 50 (>60 ml/min/1.73 sqM); Potassium 4.8 mmol/L (3.5-5.1); Sodium 134 mmol/L (137-145); Total Bilirubin 0.4 mg/dL (0.2-1.3); Total Protein 5.8 g/dL (6.3-8.2)
--- NOTE | 2023-09-09 10:45 | P.PN ---
Subjective Progress Note Date: 09/09/23 Hospital course: Patient is a very pleasant 82-year-old male with a past medical history of CAD with previous [place] and stenting of LAD on dual antiplatelet therapy with aspirin and Plavix, hypertension, hyperlipidemia, CVA, stage IIIB chronic kidney disease, and BPH. Patient presented to the emergency department on 08/30/23 with a chief complaint of shortness of breath and reports of crushing chest pain. Upon arrival to our facility patient was found to be in acute respiratory distress with respiratory rate of 32 breaths per minute and SpO2 of 90% on 15 L O2 via and nonrebreather mask requiring immediate placement on BiPAP. Vital signs otherwise showed hypertension with blood pressure 182/96, tachycardia with heart rate 113, and elevated temp with axillary temp documented at 101.6F. EKG completed showing sinus tachycardia at 103 bpm with a new onset left bundle branch block. Labs completed and reviewed. CBC showing leukocytosis with WBC count of 13.0. Coagulation profile showing elevated PTT of 21.7 and d-dimer of 2.13. BMP showing acute kidney injury on chronic kidney disease with BUN of 41, creatinine 1.70, and GFR of 37 with baseline creatinine of 1.3. Liver profile showing elevated alkaline phosphatase of 174. Troponin 0.013 and proBNP 1470. Influenza A, influenza B, and Covid PCR were all negative and RSV was positive. Patient was admitted under our services with consultation to cardiology and pulmonology. Troponins trended increasing from initial 0.013 up to 4.650. Repeat EKG completed still showing sinus mechanism at 84 bpm with continued left bundle branch block. Patient was started on heparin infusion. Bilateral lower extremity Dopplers were obtained negative for DVT, secondary to need for continuous BiPAP patient was unable to undergo CTA. Patient remained in acute hypoxic respiratory failure requiring continuous BiPAP and on heparin infusion secondary to NSTEMI. Echocardiogram completed showing a reduced EF of 35-40% with mid to distal anteroseptal and anterior wall hypokinesia and anterioapical hypokinesiaOn 09/04/23 patient underwent a cardiac catheterization showing severe occlusive coronary artery disease with 70-80% stenosis of distal left main, 100% of ostial LAD, 80-90% of ostial PDA, and 80% of proximal obtuse marginal. Cardiology recommending consultation to cardiothoracic surgery for revascularization. Cardiothoracic surgery evaluated stating patient is a very poor surgical candidate and not a surgical candidate for revascularization surge ry. Subjective: Pt has no new complaints today, appears to be doing well on 2L NC. Stressed the importance of mobility today and asked nursing to ambulate patient. If he does well anticipate d/c in next 24 hours. Physical exam: Gen: awake, alert HEENT: normocephalic, atraumatic, good hearing acuity, moist mucous membranes Resp: good air exchange, breathing comfortably with no accessory muscle use, clear to auscultation CVS: good distal perfusion x 4, GI: soft, NTTP, ND : no SPT, no CVAT, colon catheter not present MSK: no pitting edema, no clubbing Neuro: non-focal, moving all extremities Psych: cooperative, euthymic mood Assessment and Plan of Care: Acute respiratory failure with hypoxia RSV infection with tracheobronchitis and community-acquired pneumonia Sepsis secondary to above -Continue oxygen supplementation as needed to maintain SpO2 equal to or greater than 90%, wean as patient tolerates. -Continue Duonebs scheduled four times daily and as needed for SOB and/or wheezing -Continue Pulmicort 1 puff twice daily -Steroids: Continue Prednisone 40 mg daily (day 5 of oral steroids) -Antibiotics: Patient completed course of IV antibiotics with azithromycin and Rocephin. -Repeat chest x-ray completed 09/06/23 showed negative for acute cardiopulmonary process showing basilar airspace opacities similar likely representing atelectasis. NSTEMI with triple vessel occlusive coronary artery disease Newly developed left bundle branch block Acute systolic heart failure with EF of 35-40% Elevated d-dimer, bilateral lower extremity Dopplers were negative patient is unstable to be taken down for CTA at this time Hypertension Hyperlipidemia History of CAD History of CVA -Echocardiogram showing a reduced EF of 35-40% with mid to distal anteroseptal and anterior wall hypokinesia and anterioapical hypokinesia. -On 09/04/23 patient underwent a cardiac catheterization showing severe occlusive coronary artery disease with 70-80% stenosis of distal left main, 100% of ostial LAD, 80-90% of ostial PDA, and 80% of proximal obtuse marginal. -Cardiothoracic surgery evaluated stating patient is a very poor surgical candidate and not a surgical candidate for revascularization surgery.Cardiothoracic surgery evaluated stating patient is a very poor surgical candidate and not a surgical candidate for revascularization surgery. -Cardiology evaluated and clearing patient from cardiac perspective, stating no plans for cardiac intervention during this hospitalization. Recommending continued agressive medical management and outpatient follow-up in their office with Dr. Horvath in 2 weeks. -Patient to continue with cardiac medication regimen with aspirin 81 mg daily, atorvastatin 80 mg nightly, carvedilol 6.25 mg twice daily, Plavix 75 mg daily, and losartan 12.5 mg daily. -Could consider SGLT2 inhibitor if GFR remains > 45 Acute kidney injury on stage IIIb chronic kidney disease Renal function remains elevated but stable with BUN 67, creatinine 1.62, and GFR of 39 with baseline creatinine of 1.3. Data and imaging reviewed: -Vital signs reviewed. Blood pressure 152/72, heart rate 64, respiratory rate 17, temp 97.3F, and SpO2 of 95% on 2 L O2. CODE STATUS: Full code DVT prophylaxis: heparin Objective - Vital Signs Vital signs: Vital Signs Temp 97.9 F 09/09/23 08:00 Pulse 80 09/09/23 09:19 Resp 18 09/09/23 09:19 BP 146/65 09/09/23 08:00 Pulse Ox 99 09/09/23 08:00 FiO2 30 09/09/23 09:05 Intake & Output 09/08/23 09/09/23 09/09/23 18:59 06:59 18:59 Intake Total 472 483 Output Total 825 300 Balance 472 -825 183 Weight 135 kg 136 kg Intake: IV 10 Invasive Line 3 10 Oral 472 473 Output: Urine 825 300 Other: Voiding Method Toilet Toilet Toilet Urinal Urinal Urinal # Voids 1 # Bowel Movements 1 1 - Labs CBC & Chem 7: 09/09/23 08:18 09/09/23 08:18 Labs: Abnormal Lab Results - Last 24 Hours (Table) 09/08/23 09/08/23 09/08/23 Range/Units 11:47 16:27 19:56 WBC (3.8-10.6) k/uL RBC (4.30-5.90) m/uL Hgb (13.0-17.5) gm/dL Hct (39.0-53.0) % Sodium (137-145) mmol/L BUN (9-20) mg/dL Creatinine (0.66-1.25) mg/dL Glucose (74-99) mg/dL POC Glucose (mg/dL) 305 H 361 H 422 H (70-110) mg/dL Calcium (8.4-10.2) mg/dL Total Protein (6.3-8.2) g/dL Albumin (3.5-5.0) g/dL 09/09/23 09/09/23 09/09/23 Range/Units 06:13 08:18 08:18 WBC 11.0 H (3.8-10.6) k/uL RBC 3.65 L (4.30-5.90) m/uL Hgb 10.5 L (13.0-17.5) gm/dL Hct 32.1 L (39.0-53.0) % Sodium 134 L (137-145) mmol/L BUN 54 H (9-20) mg/dL Creatinine 1.33 H (0.66-1.25) mg/dL Glucose 249 H (74-99) mg/dL POC Glucose (mg/dL) 300 H (70-110) mg/dL Calcium 8.2 L (8.4-10.2) mg/dL Total Protein 5.8 L (6.3-8.2) g/dL Albumin 3.0 L (3.5-5.0) g/dL
--- NOTE | 2023-09-09 11:21 | P.PN ---
Subjective Progress Note Date: 09/09/23 Principal diagnosis: Shortness of breath. This is an 82-year-old white male with history of multiple medical problems including CVA, TIA, type 2 diabetes, hypertension, previous LA, patient was actually admitted on 08/30/2023, admitted with the chief complaint of shortness of breath and cough. Patient tested positive for RSV on his admission, and chest x-ray showed bibasilar opacities. Patient was also complaining of acute onset chest pain, and he was noted to have elevated troponin. Cardiology saw the patient, and felt that the patient has ischemic cardiomyopathy, in addition he had RSV acute tracheobronchitis/URI secondary to RSV, pro-calcitonin level was also elevated, and patient has been receiving antibiotics in the form of Rocephin and Zithromax. Patient also developed worsening kidney disease, he is known to have history of stage IIIB chronic kidney disease, baseline creatinine is in the range of 1.6-1.8, but considering his worsening renal functioning, patient was seen by nephrology on consultation, and recommended mostly encouraging oral intakes, and avoiding nephrotoxins as well as iron studies. Patient is also now being considered for possible cardiac catheterization. He does have ischemic cardiomyopathy with LV dysfunction and ejection fraction of 35-40%. According to the patient is a lifelong nonsmoker, but during my evaluation the patient had diffuse rhonchi and wheezing bilaterally. Patient has been almost BiPAP dependent with IPAP of 12 and EPAP of 6 and 40% FiO2, does not feel well when he gets switched to nasal cannula continues to have intermittent episodes of cough wheezing and shortness of breath. Again the patient has no previous history of COPD and he had no review a smoking history according to the patient. Chest x-ray from yesterday showed left lower lobe atelectasis, possible pneumonia, no evidence of congestive heart failure. Again his pro-calcitonin level was noted in the range of 0.5 7. The patient is seen today 09/04/2023 in follow-up on the selective care unit. He is currently resting comfortably in bed. Awake and alert in no acute distress. He is improved today compared to yesterday. Currently off the BiPAP and maintaining O2 saturations in the 90s on 6 L/m per nasal cannula. He's been afebrile. Hemodynamically stable. He did undergo cardiac catheterization today which did reveal a 70-80% distal left main disease, 100% ostial LAD occlusion with faint right to left collaterals, 80-90% ostial PDA, 80% proximal OM1 occlusion. Current plan is to treat medically with a surgical consultation. White count 5.8. Hemoglobin 10.5. Platelets 187. Sodium 136. Potassium 4.3. Bicarb 22. BUN 53. Creatinine 1.50. He remains on a heparin drip. Continued on bronchodilators, Solu-Medrol. He is on IV diuretics. Currently in a -1.8 L balance. He remains on ceftriaxone. Completed azithromycin. Patient was reexamined today on 09/05/2023, continues to have shortness of breath and wheezing, nonetheless the wheezing seems to be improving, and I have transitioned his methylprednisolone to oral prednisone. Patient had cardiac catheterization, and it showed significant coronary artery disease, cardiothoracic surgery was consulted, however considering the patient's overall issues at present he is not a good candidate for surgery at this point. Patient remains BiPAP dependent, WBC count is 11.1 hemoglobin 10.4 basic metabolic profile is normal, creatinine is 1.68, baseline is 1.7 chest x-ray from 09/03, showed bilateral perihilar infiltrates, improving compared to his previous chest x-ray Patient was reevaluated today on 09/06/2023. Patient is feeling better, remains on BiPAP, however I am recommending that he goes on nasal cannula. Chest x-ray has shown significant improvement, minimal atelectasis is noted at the left base, otherwise chest x-ray is improved. Patient is on BiPAP, and I'm recommending that he goes to nasal cannula, O2 sats is 99% on 40% BiPAP. Elect rolytes are normal BUN is 69 and creatinine 1.81 blood sugar is 225. Patient is now off heparin, and he is on aspirin and Plavix instead. Cardiology is considering intervention on his LAD disease, since the patient is a poor candidate for surgery. However considering about his renal status and elevated creatinine Progress note dated 09/07/2023. This is an 82-year-old male who is seen today in room 375. The patient's currently on BiPAP, settings of 14/6, and 40%. He did test positive for r espiratory syncytial virus. The patient is also receiving saline at 20 mL an hour. Clinically, he looks reasonably stable. He states that he is feeling better. Laboratory data includes a white count of 9.7, hemoglobin 10.3, hematocrit 31.6, and a platelet count of 195,000. Sodium 134, potassium 4.8, chlorides 103, CO2 23, BUN 67, and creatinine 1.62. Chest x-ray from September 06 shows bibasilar atelectasis. Progress note dated 09/08/2023. 82-year-old male, seen today in room 375. The patient continues on BiPAP, with settings of 14/6, and 30%. We've not on BiPAP, he's on 2 L of oxygen by nasal cannula. The patient tested positive for RSV, was thought to have viral pneumonia/viral tracheobronchitis. The patient is not receiving any IV fluids. He seemed relatively comfortable, in a sitting up in a chair, next to his bed. Laboratory data today only includes a glucose of 250. No chest x-ray today. Progress note dated 09/09/2023. 82-year-old male seen in room 375. The patient did not use BiPAP last night. Currently, he's on 2 L of oxygen. He looks relatively stable. The patient's Pulmicort will be discontinued. Current laboratory data includes a white count of 11, hemoglobin 10.5, hematocrit 32.1, and a platelet count of 188,000. Sodium 134, potassium 4.8, chlorides 102, CO2 24, BUN 54, and creatinine 1.33. Albumin is 3. Calcium is 8.2. Objective - Vital Signs Vital signs: Vital Signs Temp 97.9 F 09/09/23 08:00 Pulse 80 09/09/23 09:19 Resp 18 09/09/23 09:19 BP 146/65 09/09/23 08:00 Pulse Ox 99 09/09/23 08:00 FiO2 30 09/09/23 09:05 Intake & Output 09/08/23 09/09/23 09/09/23 18:59 06:59 18:59 Intake Total 472 483 Output Total 825 300 Balance 472 -825 183 Weight 135 kg 136 kg Intake: IV 10 Invasive Line 3 10 Oral 472 473 Output: Urine 825 300 Other: Voiding Method Toilet Toilet Toilet Urinal Urinal Urinal # Voids 1 # Bowel Movements 1 1 - Exam No acute distress, oriented 3. Currently on nasal O2 at 2 L. HEENT examination is grossly unremarkable. Neck supple. Full range of motion. No adenopathy thyromegaly or neck vein distention. Cardiovascular examination reveals regular rhythm rate. S1-S2 normal. No S3 or S4. No discernible murmur noted. Heart sounds distant. Heart rate 80 bpm. Lungs reveal rhonchi. No wheezes or crackles. Breath sounds equal bilaterally. Saturations 96 %. Abdomen soft bowel sounds are heard. No masses or tenderness. Extremities are intact. No cyanosis clubbing or edema. Skin is without rash or lesion. Neurologic examination is brief but nonfocal. - Labs CBC & Chem 7: 09/09/23 08:18 09/09/23 08:18 Labs: Abnormal Lab Results - Last 24 Hours (Table) 09/08/23 09/08/23 09/08/23 Range/Units 11:47 16:27 19:56 WBC (3.8-10.6) k/uL RBC (4.30-5.90) m/uL Hgb (13.0-17.5) gm/dL Hct (39.0-53.0) % Sodium (137-145) mmol/L BUN (9-20) mg/dL Creatinine (0.66-1.25) mg/dL Glucose (74-99) mg/dL POC Glucose (mg/dL) 305 H 361 H 422 H (70-110) mg/dL Calcium (8.4-10.2) mg/dL Total Protein (6.3-8.2) g/dL Albumin (3.5-5.0) g/dL 09/09/23 09/09/23 09/09/23 Range/Units 06:13 08:18 08:18 WBC 11.0 H (3.8-10.6) k/uL RBC 3.65 L (4.30-5.90) m/uL Hgb 10.5 L (13.0-17.5) gm/dL Hct 32.1 L (39.0-53.0) % Sodium 134 L (137-145) mmol/L BUN 54 H (9-20) mg/dL Creatinine 1.33 H (0.66-1.25) mg/dL Glucose 249 H (74-99) mg/dL POC Glucose (mg/dL) 300 H (70-110) mg/dL Calcium 8.2 L (8.4-10.2) mg/dL Total Protein 5.8 L (6.3-8.2) g/dL Albumin 3.0 L (3.5-5.0) g/dL Assessment and Plan Assessment: Acute hypoxemic respiratory failure secondary to RSV associated tracheobronchitis. Acute community-acquired pneumonia. Reactive bronchospasm and bronchial inflammation. Acute systolic CHF. Acute on chronic kidney disease. Benign essential hypertension. History of CVA. History of PTSD. Triple-vessel CAD. Plan: Plan dated 09/07/2023. The patient continues on bronchodilators, antibiotics, corticosteroids, and updrafts. The patient is currently on BiPAP, but can be converted nasal O2. Additional recommendations and suggestions are forthcoming. We will continue to follow the patient, make recommendations along the way. Labs, x-rays, medications are reviewed. Chest x-ray from September 06 shows bi-basilar atelectasis. No additional recommendations are made. Prognosis is certainly guarded. Plan dated 09/08/2023. The patient appears to be relatively comfortable. He goes between BiPAP, and 2 L by nasal cannula. Additional recommendations and suggestions are forthcoming. He continues on bronchodilators, antibiotics, corticosteroids, and updrafts. Labs, x-rays, medications are reviewed. We will continue to follow the patient, make recommendations along the way. Prognosis is guarded. Plan dated 09/09/2023. The patient apparently did not use BiPAP last night. He looks very comfortable on 2 L. Saturations are 96%. Labs, x-rays, and medications are reviewed. He continues on prednisone. Budesonide solution was discontinued. We will continue to follow, make recommendations along the way. Overall prognosis remains guarded, but the patient is headed in the right direction. Hopeful discharge in the near future. Time with Patient: Less than 30
--- NOTE | 2023-09-09 11:42 | P.PN ---
Subjective Patient is seen for follow-up for chronic kidney disease. Baseline creatinine 1.2-1.4 mg/dL Status post cardiac catheterization with significant disease and deemed to be not good surgical candidate at this time. Patient is also maintained on IV Lasix for CHF and volume overload noted on chest x-ray. He also has underlying RSV infection. No significant complaints today. Serum creatinine decreased to 1.3 today. 24- hour urine output documented at 825 mL. . Patient is maintained on nasal cannula. Objective - Vital Signs Vital signs: Vital Signs Temp 97.9 F 09/09/23 08:00 Pulse 80 09/09/23 09:19 Resp 18 09/09/23 09:19 BP 146/65 09/09/23 08:00 Pulse Ox 99 09/09/23 08:00 FiO2 30 09/09/23 09:05 Intake & Output 09/08/23 09/09/23 09/09/23 18:59 06:59 18:59 Intake Total 472 483 Output Total 825 300 Balance 472 -825 183 Weight 135 kg 136 kg Intake: IV 10 Invasive Line 3 10 Oral 472 473 Output: Urine 825 300 Other: Voiding Method Toilet Toilet Toilet Urinal Urinal Urinal # Voids 1 # Bowel Movements 1 1 - Exam Patient is awake, comfortable, no acute distress Examination of the heart S1 and S2 Examination of the lungs bilateral breath sounds are heard Abdomen is soft obese nontender Examination of lower extremities shows no significant edema bilaterally 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 - Labs CBC & Chem 7: 09/09/23 08:18 09/09/23 08:18 Labs: Abnormal Lab Results - Last 24 Hours (Table) 09/08/23 09/08/23 09/08/23 Range/Units 11:47 16:27 19:56 WBC (3.8-10.6) k/uL RBC (4.30-5.90) m/uL Hgb (13.0-17.5) gm/dL Hct (39.0-53.0) % Sodium (137-145) mmol/L BUN (9-20) mg/dL Creatinine (0.66-1.25) mg/dL Glucose (74-99) mg/dL POC Glucose (mg/dL) 305 H 361 H 422 H (70-110) mg/dL Calcium (8.4-10.2) mg/dL Total Protein (6.3-8.2) g/dL Albumin (3.5-5.0) g/dL 09/09/23 09/09/23 09/09/23 Range/Units 06:13 08:18 08:18 WBC 11.0 H (3.8-10.6) k/uL RBC 3.65 L (4.30-5.90) m/uL Hgb 10.5 L (13.0-17.5) gm/dL Hct 32.1 L (39.0-53.0) % Sodium 134 L (137-145) mmol/L BUN 54 H (9-20) mg/dL Creatinine 1.33 H (0.66-1.25) mg/dL Glucose 249 H (74-99) mg/dL POC Glucose (mg/dL) 300 H (70-110) mg/dL Calcium 8.2 L (8.4-10.2) mg/dL Total Protein 5.8 L (6.3-8.2) g/dL Albumin 3.0 L (3.5-5.0) g/dL Assessment and Plan Assessment: 1. 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 No hydronephrosis noted on kidney ultrasound. Possible mild acute kidney injury. Nonoliguric 2. Acute hypoxic respiratory failure secondary to CHF and RSV infection. 3. Acute RSV infection. 4. History of coronary artery disease with prior stenting. 5. Diabetes mellitus. 6. Chronic systolic CHF with ejection fraction of 35-40%. 7. Anemia of chronic kidney disease. Iron deficiency noted. 8. Non-ST elevated myocardial infarction. Cardiology following. Status post cardiac catheterization which showed significant disease and patient is deemed to be not a good surgical candidate at this time. There are plans for stent placement to LAD. Plan: Continue off of IV fluids Continue with Lasix. Increase dose Repeat chest x-ray Repeat labs in a.m. Avoid nephrotoxic agents
[2023-09-09 11:45] LABS: Glucose,Whole Blood 327 mg/dL (70-110)
[2023-09-09] MEDS: BENZONATATE 100 MG CAP PO PRN (12:33)
--- NOTE | 2023-09-09 13:09 | XR ---
EXAMINATION TYPE: XR chest 1V DATE OF EXAM: 09/09/2023 COMPARISON: NONE HISTORY: SOB TECHNIQUE: Single frontal view of the chest is obtained. FINDINGS: There is no focal air space opacity, pleural effusion, or pneumothorax seen. The cardiac silhouette size is within normal limits. The osseous structures are intact. Subcentimeter nodule bi lateral upper lobe. IMPRESSION: 1. No acute process. There are subcentimeter nodules bilateral upper lobe. Recommend follow-up CT [facility].
--- NOTE | 2023-09-09 13:54 | P.PN ---
Subjective Progress Note Date: 09/09/23 HISTORY OF PRESENT ILLNESS: This Is a pleasant 82-year-old gentleman who follows in the office with Dr. Nelson. He has a history of STEMI in September at which time he underwent stenting of the LAD. He subsequently stopped taking his medications and he returned again with evidence of an anterior wall MO and underwent angioplasty and aspiration thrombectomy by Dr. Davis. Subsequently had CVA. He been feeling fairly well since around November of this year. Over the last few days he's been feeling significantly more short of breath. He decided to call EMS when he began developing chest discomfort. Upon presentation he was noted to be in sinus rhythm with left bundle branch block which has not been diagnosed in the past. He is positive for RSV. Chest x-ray showed bibasilar opacifications. Initially troponin came back normal at 0.013 with subsequent troponin of 4.65. At the time of my examination the patient is chest pain-free. His breathing is better. His creatinine is 1.7 which is up compared to his baseline. He follows regularly with Dr. Barker. Myoglobin 12.7. He complains of left lower extremity edema and ultrasound was negative for DVT. His vital signs up and stable. At the time of my examination he is resting comfortably in bed. He denies complaints of chest discomfort. He's had no palpitations, dizziness or lightheadedness. He denies any orthopnea or PND. Continues to complain of shortness of breath but improved. 08/31/2023 Patient examined this morning at the bedside. Patient currently denies chest pain or pressure. He reports shortness of breath. Patient has required increased oxygen overnight and is currently on 3 L nasal cannula. Patient's creatinine declined today to 1.90. He was initially scheduled for cardiac catheterization but this has been canceled and will be rescheduled when patient is medically stable. September 01 2023 Patient examined this morning at the bedside. Patient denies shortness of breath. He does report having an episode of chest discomfort this morning. He denies any chest pain at the time of examination. He remains on IV heparin. Echocardiogram completed revealing ejection fraction 35-40%, mid to distal anterior septal, anterior wall hypokinesia, anterior apical hypokinesia, mild aortic stenosis, mild MR and trace TR September 02 2023 Patient examined this morning at the bedside. Patient developed worsening shortness of breath overnight and required BiPAP. Chest x-ray this morning revealed bilateral lower lobe infiltrates correlate for pneumonia otherwise consider CHF. He remains on IV heparin. Creatinine 1.78. 09/03/2023 Patient examined this morning at the bedside. Patient remains on BiPAP. He reports feeling short of breath when the BiPAP is removed and also has a drop in his oxygen saturations. He currently denies any chest pain or pressure. He remains on IV heparin. 09/05 Patient underwent left heart catheterization yesterday showing occlusion of his previous LAD stent with right to left collaterals, 80-90% proximal PDA lesion which is somewhat similar to prior and mild disease of the circumflex. LVEDP was noted to be elevated at 23. Creatinine remained fairly stable at 1.68. Still remains intermittently on BiPAP. He also has been receiving IV Lasix 40 mg IV daily with good urine output. Patient seen by cardiothoracic surgery and deemed high risk and nonsurgical candidate for bypass. 09/06 the patient is on BiPAP and he states he's taken her off to eat only. He states his breathing is better. No chest pain. Blood pressure 136/63, heart rate is in the 60s, pulse ox 99% on FiO2 of 40 with BiPAP. Repeat blood work reveals sodium 135, potassium 4.4, BUN 69 and creatinine 1.81. Chest x-ray reveals no acute cardiopulmonary process. Basilar airspace opacities similar and could represent atelectasis. Yesterday, losartan was started. He has continued on aspirin 81 mg daily, atorvastatin 80 mg daily, Coreg, Plavix to maximize medical therapy 09/07 Patient remains on BiPAP with FiO2 of 40% and pulse ox 99%. Heart rate 59, blood pressure 130/62, afebrile. Telemetry is sinus rhythm. BUN 67 and creatinine 1.62, potassium 4.8, hemoglobin 10.3. Patient is maintained on IV Lasix 40 mg daily and followed closely by nephrology and pulmonary medicine. 09/08 Patient is no longer on BiPAP, currently 2 L nasal cannula with pulse ox of 95%. Heart rate is in the 60s. Blood pressure 152/72. No complaints of chest pain. 09/09 Currently on O2 at 2 L nasal cannula. He remains off BiPAP. He has been on IV Lasix transitioned to oral 40 mg twice daily. Plan is for medical management and no cardiac intervention during this hospitalization. WBC 11, hemoglobin 10.5, platelet count 188. Sodium 134, potassium 4.8, BUN 54 creatinine 1.33. Blood pressure is 138/65, heart rate in the 70s and 80s. PHYSICAL EXAM: VITAL SIGNS: Reviewed. GENERAL: Well-developed in no acute distress. NECK: Supple. No JVD or thyromegaly LUNGS: Respirations even and unlabored. Lungs essentially clear to auscultation bilaterally. HEART: Regular rate and rhythm. S1 and S2 heard. EXTREMITIES: Normal range of motion. No clubbing or cyanosis. Peripheral pulses intact. No lower extremity edema ASSESSMENT: Non-STEMI, possibly related to occlusion of LAD stent New-onset left bundle branch block RSV Acute hypoxic respiratory failure Acute kidney injury Chronic kidney disease Coronary artery disease with previous stenting of the LAD Ischemic cardiomyopathy History of CVA PLAN: Continue current cardiac medications Nephrology is transitioned IV Lasix to oral 40 mg twice daily No plan for cardiac intervention during this hospitalization. Patient is cleared for discharge with follow-up with Dr. Nelson in 2 weeks. Nurse practitioner note has been reviewed, I agree with the documented findings and plan of care. Patient was seen and examined. Objective - Vital Signs Vital signs: Vital Signs Temp 97.5 F L 09/09/23 00:07 Pulse 62 09/09/23 05:10 Resp 18 09/09/23 05:10 BP 129/61 09/09/23 05:10 Pulse Ox 99 09/09/23 05:10 FiO2 30 09/08/23 04:07 Intake & Output 09/08/23 09/09/23 09/09/23 18:59 06:59 18:59 Intake Total 472 473 Output Total 825 300 Balance 472 -825 173 Weight 135 kg 136 kg Intake: Oral 472 473 Output: Urine 825 300 Other: Voiding Method Toilet Toilet Urinal Urinal # Voids 1 # Bowel Movements 1 1 - Labs CBC & Chem 7: 09/09/23 08:18 09/09/23 08:18 Labs: Abnormal Lab Results - Last 24 Hours (Table) 09/08/23 09/08/23 09/08/23 Range/Units 11:47 16:27 19:56 POC Glucose (mg/dL) 305 H 361 H 422 H (70-110) mg/dL 09/09/23 Range/Units 06:13 POC Glucose (mg/dL) 300 H (70-110) mg/dL
[2023-09-09 17:04] LABS: Glucose,Whole Blood 283 mg/dL (70-110)
[2023-09-09] MEDS: TAMSULOSIN 0.4 MG CAP.ER.24H PO SCH (17:26)
[2023-09-09] MEDS: FUROSEMIDE 40 MG TAB PO SCH (17:26)
[2023-09-09 20:02] LABS: Glucose,Whole Blood 352 mg/dL (70-110)
[2023-09-09] MEDS: guaiFENesin SYRUP 100MG/5ML 200 MG/10 ML CUP PO PRN (21:10)
[2023-09-09] MEDS: INSULIN DETEMIR (LEVEMIR) 100 UNIT/ML SYR SQ SCH (21:10)
[2023-09-09] MEDS: ATORVASTATIN 80 MG TAB PO SCH (21:10)
[2023-09-09] MEDS: ALPRAZolam 0.5 MG TAB PO SCH (21:10)
[2023-09-10 05:38] LABS: Glucose,Whole Blood 178 mg/dL (70-110)
[2023-09-10] MEDS: carvediloL 6.25 MG TAB PO SCH ×2 (06:36→16:44)
[2023-09-10] MEDS: INSULIN ASPART (NovoLOG) 100 UNIT/ML VIAL SQ SCH ×7 (06:36→20:42)
[2023-09-10] MEDS: guaiFENesin SYRUP 100MG/5ML 200 MG/10 ML CUP PO PRN ×3 (06:42→20:42)
[2023-09-10 09:08] LABS: Basophils % (A) 0 %; Eosinophils # (A) 0.1 k/uL (0-0.7); Eosinophils % (A) 0 %; HCT 35.3 % (39.0-53.0); HGB 11.5 gm/dL (13.0-17.5); Lymphocytes # (A) 1.1 k/uL (1.0-4.8); Lymphocytes % (A) 10 %; MCH 28.4 pg (25.0-35.0); MCHC 32.5 g/dL (31.0-37.0); MCV 87.3 fL (80.0-100.0); Mean Platelet Volume 10.3; Monocytes # (A) 0.5 k/uL (0-1.0); Monocytes % (A) 5 %; Neutrophils # (A) 9.4 k/uL (1.3-7.7); Neutrophils % (A) 84 %; Platelet Count 201 k/uL (150-450); RBC 4.04 m/uL (4.30-5.90); RDW 14.2 % (11.5-15.5); WBC 11.2 k/uL (3.8-10.6)
[2023-09-10] MEDS: IPRATROPIUM-ALBUTEROL 3 ML NEB INHALATION SCH ×4 (09:15→21:33)
[2023-09-10] MEDS: BUDESONIDE 1 MG/2 ML NEBU INHALATION SCH ×2 (09:15→21:33)
[2023-09-10 09:20] LABS: African American GFR (CKD) 57 (>60 ml/min/1.73 sqM); Anion Gap 5 mmol/L; Blood Urea Nitrogen 51 mg/dL (9-20); Calcium 8.3 mg/dL (8.4-10.2); Carbon Dioxide 26 mmol/L (22-30); Chloride 103 mmol/L (98-107); Glucose 158 mg/dL (74-99); Magnesium 2.3 mg/dL (1.6-2.3); Non-African American GFR(CKD) 49 (>60 ml/min/1.73 sqM); Potassium 4.6 mmol/L (3.5-5.1); Sodium 134 mmol/L (137-145)
[2023-09-10] MEDS: ASPIRIN 81 MG PO SCH (09:54)
[2023-09-10] MEDS: FINASTERIDE 5 MG TAB PO SCH (09:54)
[2023-09-10] MEDS: FUROSEMIDE 40 MG TAB PO SCH ×2 (09:54→16:44)
[2023-09-10] MEDS: HEPARIN SODIUM,PORCINE 5,000 UNIT/ML 1 ML VIAL SQ SCH ×2 (09:54→20:42)
[2023-09-10] MEDS: CLOPIDOGREL 75 MG TAB PO SCH (09:54)
[2023-09-10] MEDS: LOSARTAN 25 MG TAB PO SCH (09:54)
[2023-09-10] MEDS: predniSONE 20 MG TAB PO SCH (09:54)
[2023-09-10] MEDS: PANTOPRAZOLE 40 MG TABLET PO SCH (09:54)
[2023-09-10 11:33] LABS: Glucose,Whole Blood 212 mg/dL (70-110)
--- NOTE | 2023-09-10 13:05 | PN ---
PROGRESS NOTE SUBJECTIVE: Mr. Fraser is a patient with COPD, obstructive sleep apnea, also had a non-ST elevation MN, but given the circumstances, we have decided to pursue medical therapy. He is doing well on this. Vital signs are stable. He can be discharged and we will increase activity and possibly see Dr. Nelson as an outpatient. OBJECTIVE: VITALS: Stable. HEART: S1, S2 heard normally. Heart sounds heard distantly. LUNGS: Revealed decent air entry. ABDOMEN: Unchanged. EXTREMITIES: Lower extremity exam unchanged. Patient is in sinus rhythm today. We will continue current medical regimen, possible discharge soon. MMODL / IJN: [id number] /
--- NOTE | 2023-09-10 13:45 | P.PN ---
Subjective Patient is seen for follow-up for chronic kidney disease. Baseline creatinine 1.2-1.4 mg/dL Status post cardiac catheterization with significant disease and deemed to be not good surgical candidate at this time. Patient is also maintained on IV Lasix for CHF and volume overload noted on chest x-ray. He also has underlying RSV infection. No significant complaints today. Serum creatinine decreased to 1.3 today. 24- hour urine output documented at 2300 mL. . Patient is currently off of oxygen and maintained on room air with O2 sats at 98%. Objective - Vital Signs Vital signs: Vital Signs Temp 97.3 F L 09/10/23 09:50 Pulse 67 09/10/23 13:00 Resp 20 09/10/23 13:00 BP 151/66 09/10/23 13:00 Pulse Ox 98 09/10/23 13:00 FiO2 30 09/10/23 09:15 Intake & Output 09/09/23 09/10/23 09/10/23 18:59 06:59 18:59 Intake Total 1192 368 Output Total 1000 1300 200 Balance 192 -1300 168 Intake: IV 10 10 Invasive Line 3 10 10 Oral 1182 358 Output: Urine 1000 1300 200 Other: Voiding Method Bedside Commode Bedside Commode Bedside Commode Urinal Urinal Urinal # Bowel Movements 1 - Exam Patient is awake, comfortable, no acute distress Examination of the heart S1 and S2 Examination of the lungs bilateral breath sounds are heard Abdomen is soft obese nontender Examination of lower extremities shows no significant edema bilaterally 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 - Labs CBC & Chem 7: 09/10/23 08:52 09/10/23 08:52 Labs: Abnormal Lab Results - Last 24 Hours (Table) 09/09/23 09/09/23 09/10/23 Range/Units 17:02 20:01 05:36 WBC (3.8-10.6) k/uL RBC (4.30-5.90) m/uL Hgb (13.0-17.5) gm/dL Hct (39.0-53.0) % Neutrophils # (1.3-7.7) k/uL Sodium (137-145) mmol/L BUN (9-20) mg/dL Creatinine (0.66-1.25) mg/dL Glucose (74-99) mg/dL POC Glucose (mg/dL) 283 H 352 H 178 H (70-110) mg/dL Calcium (8.4-10.2) mg/dL 09/10/23 09/10/23 09/10/23 Range/Units 08:52 08:52 11:31 WBC 11.2 H (3.8-10.6) k/uL RBC 4.04 L (4.30-5.90) m/uL Hgb 11.5 L (13.0-17.5) gm/dL Hct 35.3 L (39.0-53.0) % Neutrophils # 9.4 H (1.3-7.7) k/uL Sodium 134 L (137-145) mmol/L BUN 51 H (9-20) mg/dL Creatinine 1.35 H (0.66-1.25) mg/dL Glucose 158 H (74-99) mg/dL POC Glucose (mg/dL) 212 H (70-110) mg/dL Calcium 8.3 L (8.4-10.2) mg/dL Assessment and Plan Assessment: 1. 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 No hydronephrosis noted on kidney ultrasound. Possible mild acute kidney injury. Nonoliguric 2. Acute hypoxic respiratory failure secondary to CHF and RSV infection. 3. Acute RSV infection. 4. History of coronary artery disease with prior stenting. 5. Diabetes mellitus. 6. Chronic systolic CHF with ejection fraction of 35-40%. 7. Anemia of chronic kidney disease. Iron deficiency noted. 8. Non-ST elevated myocardial infarction. Cardiology following. Status post cardiac catheterization which showed significant disease and patient is deemed to be not a good surgical candidate at this time. There are plans for stent placement to LAD. Plan: Continue off of IV fluids Continue with Lasix. Repeat labs in a.m. Avoid nephrotoxic agents
--- NOTE | 2023-09-10 14:27 | P.PN ---
Subjective Progress Note Date: 09/10/23 Principal diagnosis: Shortness of breath. This is an 82-year-old white male with history of multiple medical problems including CVA, TIA, type 2 diabetes, hypertension, previous OK, patient was actually admitted on 08/30/2023, admitted with the chief complaint of shortness of breath and cough. Patient tested positive for RSV on his admission, and chest x-ray showed bibasilar opacities. Patient was also complaining of acute onset chest pain, and he was noted to have elevated troponin. Cardiology saw the patient, and felt that the patient has ischemic cardiomyopathy, in addition he had RSV acute tracheobronchitis/URI secondary to RSV, pro-calcitonin level was also elevated, and patient has been receiving antibiotics in the form of Rocephin and Zithromax. Patient also developed worsening kidney disease, he is known to have history of stage IIIB chronic kidney disease, baseline creatinine is in the range of 1.6-1.8, but considering his worsening renal functioning, patient was seen by nephrology on consultation, and recommended mostly encouraging oral intakes, and avoiding nephrotoxins as well as iron studies. Patient is also now being considered for possible cardiac catheterization. He does have ischemic cardiomyopathy with LV dysfunction and ejection fraction of 35-40%. According to the patient is a lifelong nonsmoker, but during my evaluation the patient had diffuse rhonchi and wheezing bilaterally. Patient has been almost BiPAP dependent with IPAP of 12 and EPAP of 6 and 40% FiO2, does not feel well when he gets switched to nasal cannula continues to have intermittent episodes of cough wheezing and shortness of breath. Again the patient has no previous history of COPD and he had no review a smoking history according to the patient. Chest x-ray from yesterday showed left lower lobe atelectasis, possible pneumonia, no evidence of congestive heart failure. Again his pro-calcitonin level was noted in the range of 0.5 7. The patient is seen today 09/04/2023 in follow-up on the selective care unit. He is currently resting comfortably in bed. Awake and alert in no acute distress. He is improved today compared to yesterday. Currently off the BiPAP and maintaining O2 saturations in the 90s on 6 L/m per nasal cannula. He's been afebrile. Hemodynamically stable. He did undergo cardiac catheterization today which did reveal a 70-80% distal left main disease, 100% ostial LAD occlusion with faint right to left collaterals, 80-90% ostial PDA, 80% proximal OM1 occlusion. Current plan is to treat medically with a surgical consultation. White count 5.8. Hemoglobin 10.5. Platelets 187. Sodium 136. Potassium 4.3. Bicarb 22. BUN 53. Creatinine 1.50. He remains on a heparin drip. Continued on bronchodilators, Solu-Medrol. He is on IV diuretics. Currently in a -1.8 L balance. He remains on ceftriaxone. Completed azithromycin. Patient was reexamined today on 09/05/2023, continues to have shortness of breath and wheezing, nonetheless the wheezing seems to be improving, and I have transitioned his methylprednisolone to oral prednisone. Patient had cardiac catheterization, and it showed significant coronary artery disease, cardiothoracic surgery was consulted, however considering the patient's overall issues at present he is not a good candidate for surgery at this point. Patient remains BiPAP dependent, WBC count is 11.1 hemoglobin 10.4 basic metabolic profile is normal, creatinine is 1.68, baseline is 1.7 chest x-ray from 09/03, showed bilateral perihilar infiltrates, improving compared to his previous chest x-ray Patient was reevaluated today on 09/06/2023. Patient is feeling better, remains on BiPAP, however I am recommending that he goes on nasal cannula. Chest x-ray has shown significant improvement, minimal atelectasis is noted at the left base, otherwise chest x-ray is improved. Patient is on BiPAP, and I'm recommending that he goes to nasal cannula, O2 sats is 99% on 40% BiPAP. Elect rolytes are normal BUN is 69 and creatinine 1.81 blood sugar is 225. Patient is now off heparin, and he is on aspirin and Plavix instead. Cardiology is considering intervention on his LAD disease, since the patient is a poor candidate for surgery. However considering about his renal status and elevated creatinine Progress note dated 09/07/2023. This is an 82-year-old male who is seen today in room 375. The patient's currently on BiPAP, settings of 14/6, and 40%. He did test positive for r espiratory syncytial virus. The patient is also receiving saline at 20 mL an hour. Clinically, he looks reasonably stable. He states that he is feeling better. Laboratory data includes a white count of 9.7, hemoglobin 10.3, hematocrit 31.6, and a platelet count of 195,000. Sodium 134, potassium 4.8, chlorides 103, CO2 23, BUN 67, and creatinine 1.62. Chest x-ray from September 06 shows bibasilar atelectasis. Progress note dated 09/08/2023. 82-year-old male, seen today in room 375. The patient continues on BiPAP, with settings of 14/6, and 30%. We've not on BiPAP, he's on 2 L of oxygen by nasal cannula. The patient tested positive for RSV, was thought to have viral pneumonia/viral tracheobronchitis. The patient is not receiving any IV fluids. He seemed relatively comfortable, in a sitting up in a chair, next to his bed. Laboratory data today only includes a glucose of 250. No chest x-ray today. Progress note dated 09/09/2023. 82-year-old male seen in room 375. The patient did not use BiPAP last night. Currently, he's on 2 L of oxygen. He looks relatively stable. The patient's Pulmicort will be discontinued. Current laboratory data includes a white count of 11, hemoglobin 10.5, hematocrit 32.1, and a platelet count of 188,000. Sodium 134, potassium 4.8, chlorides 102, CO2 24, BUN 54, and creatinine 1.33. Albumin is 3. Calcium is 8.2. Progress note dated 09/10/2023. 82-year-old male seen in room 375. The patient apparently did not use BiPAP again last night. He is currently on 2 L. He is doing much better. He denies any worsening shortness breath, cough, wheezing, chest tightness, or phlegm production. Laboratory data includes a white count 11.2, hemoglobin 11.5, hematocrit 35.3, and a platelet count of 201,000. Sodium 134, potassium 4.6, ch lorides 103, CO2 26, BUN 51, creatinine 1.35. Glucose 158. Calcium 8.3. Magnesium 2.3. Chest x-ray from yesterday shows it to be normal. Objective - Vital Signs Vital signs: Vital Signs Temp 97.3 F L 09/10/23 09:50 Pulse 67 09/10/23 13:00 Resp 20 09/10/23 13:00 BP 151/66 09/10/23 13:00 Pulse Ox 98 09/10/23 13:00 FiO2 30 09/10/23 09:15 Intake & Output 09/09/23 09/10/23 09/10/23 18:59 06:59 18:59 Intake Total 1192 368 Output Total 1000 1300 200 Balance 192 -1300 168 Intake: IV 10 10 Invasive Line 3 10 10 Oral 1182 358 Output: Urine 1000 1300 200 Other: Voiding Method Bedside Commode Bedside Commode Bedside Commode Urinal Urinal Urinal # Bowel Movements 1 - Exam No acute distress, oriented 3. Currently on nasal O2 at 2 L. HEENT examination is grossly unremarkable. Neck supple. Full range of motion. No adenopathy thyromegaly or neck vein distention. Cardiovascular examination reveals regular rhythm rate. S1-S2 normal. No S3 or S4. No discernible murmur noted. Heart sounds distant. Heart rate 67 bpm. Lungs reveal rhonchi. No wheezes or crackles. Breath sounds equal bilaterally. Saturations 97 %. Abdomen soft bowel sounds are heard. No masses or tenderness. Extremities are intact. No cyanosis clubbing or edema. Skin is without rash or lesion. Neurologic examination is brief but nonfocal. - Labs CBC & Chem 7: 09/10/23 08:52 09/10/23 08:52 Labs: Abnormal Lab Results - Last 24 Hours (Table) 09/09/23 09/09/23 09/10/23 Range/Units 17:02 20:01 05:36 WBC (3.8-10.6) k/uL RBC (4.30-5.90) m/uL Hgb (13.0-17.5) gm/dL Hct (39.0-53.0) % Neutrophils # (1.3-7.7) k/uL Sodium (137-145) mmol/L BUN (9-20) mg/dL Creatinine (0.66-1.25) mg/dL Glucose (74-99) mg/dL POC Glucose (mg/dL) 283 H 352 H 178 H (70-110) mg/dL Calcium (8.4-10.2) mg/dL 09/10/23 09/10/23 09/10/23 Range/Units 08:52 08:52 11:31 WBC 11.2 H (3.8-10.6) k/uL RBC 4.04 L (4.30-5.90) m/uL Hgb 11.5 L (13.0-17.5) gm/dL Hct 35.3 L (39.0-53.0) % Neutrophils # 9.4 H (1.3-7.7) k/uL Sodium 134 L (137-145) mmol/L BUN 51 H (9-20) mg/dL Creatinine 1.35 H (0.66-1.25) mg/dL Glucose 158 H (74-99) mg/dL POC Glucose (mg/dL) 212 H (70-110) mg/dL Calcium 8.3 L (8.4-10.2) mg/dL Assessment and Plan Assessment: Acute hypoxemic respiratory failure secondary to RSV associated tracheobronchitis. Acute community-acquired pneumonia. Reactive bronchospasm and bronchial inflammation. Acute systolic CHF. Acute on chronic kidney disease. Benign essential hypertension. History of CVA. History of PTSD. Triple-vessel CAD. Plan: Plan dated 09/07/2023. The patient continues on bronchodilators, antibiotics, corticosteroids, and updrafts. The patient is currently on BiPAP, but can be converted nasal O2. Additional recommendations and suggestions are forthcoming. We will continue to follow the patient, make recommendations along the way. Labs, x-rays, medications are reviewed. Chest x-ray from September 06 shows bi-basilar atelectasis. No additional recommendations are made. Prognosis is certainly guarded. Plan dated 09/08/2023. The patient appears to be relatively comfortable. He goes between BiPAP, and 2 L by nasal cannula. Additional recommendations and suggestions are forthcoming. He continues on bronchodilators, antibiotics, corticosteroids, and updrafts. Labs, x-rays, medications are reviewed. We will continue to follow the patient, make recommendations along the way. Prognosis is guarded. Plan dated 09/09/2023. The patient apparently did not use BiPAP last night. He looks very comfortable on 2 L. Saturations are 96%. Labs, x-rays, and medications are reviewed. He continues on prednisone. Budesonide solution was discontinued. We will continue to follow, make recommendations along the way. Overall prognosis remains guarded, but the patient is headed in the right direction. Hopeful discharge in the near future. Plan dated 09/10/2023. The patient's doing much better. The patient's currently on 2 L. The patient did not use of BiPAP device last night. Labs, x-rays, and medications are reviewed. His vital signs are stable. The patient could be considered for possible discharge in the near future. We will leave that up to the primary service. The patient was admitted with a diagnosis of respiratory syncytial virus-induced tracheobronchitis. Time with Patient: Less than 30
[2023-09-10 14:43] VITALS: BMI 49.8
[2023-09-10 16:28] LABS: Glucose,Whole Blood 315 mg/dL (70-110)
[2023-09-10] MEDS: TAMSULOSIN 0.4 MG CAP.ER.24H PO SCH (16:44)
--- NOTE | 2023-09-10 18:27 | P.PN ---
Subjective Progress Note Date: 09/10/23 Hospital course: Patient is a very pleasant 82-year-old male with a past medical history of CAD with previous TN and stenting of LAD on dual antiplatelet therapy with aspirin and Plavix, hypertension, hyperlipidemia, CVA, stage IIIB chronic kidney disease, and BPH. Patient presented to the emergency department on 08/30/23 with a chief complaint of shortness of breath and reports of crushing chest pain. Upon arrival to our facility patient was found to be in acute respiratory distress with respiratory rate of 32 breaths per minute and SpO2 of 90% on 15 L O2 via and nonrebreather mask requiring immediate placement on BiPAP. Vital signs otherwise showed hypertension with blood pressure 182/96, tachycardia with heart rate 113, and elevated temp with axillary temp documented at 101.6F. EKG completed showing sinus tachycardia at 103 bpm with a new onset left bundle branch block. Labs completed and reviewed. CBC showing leukocytosis with WBC count of 13.0. Coagulation profile showing elevated PTT of 21.7 and d-dimer of 2.13. BMP showing acute kidney injury on chronic kidney disease with BUN of 41, creatinine 1.70, and GFR of 37 with baseline creatinine of 1.3. Liver profile showing elevated alkaline phosphatase of 174. Troponin 0.013 and proBNP 1470. Influenza A, influenza B, and Covid PCR were all negative and RSV was positive. Patient was admitted under our services with consultation to cardiology and pulmonology. Troponins trended increasing from initial 0.013 up to 4.650. Repeat EKG completed still showing sinus mechanism at 84 bpm with continued left bundle branch block. Patient was started on heparin infusion. Bilateral lower extremity Dopplers were obtained negative for DVT, secondary to need for continuous BiPAP patient was unable to undergo CTA. Patient remained in acute hypoxic respiratory failure requiring continuous BiPAP and on heparin infusion secondary to NSTEMI. Echocardiogram completed showing a reduced EF of 35-40% with mid to distal anteroseptal and anterior wall hypokinesia and anterioapical hypokinesiaOn 09/04/23 patient underwent a cardiac catheterization showing severe occlusive coronary artery disease with 70-80% stenosis of distal left main, 100% of ostial LAD, 80-90% of ostial PDA, and 80% of proximal obtuse marginal. Cardiology recommending consultation to cardiothoracic surgery for revascularization. Cardiothoracic surgery evaluated stating patient is a very p oor surgical candidate and not a surgical candidate for revascularization surgery. Patient has been treated medically and significantly improved. He was on continue with BiPAP and has successfully been weaned off. Home oxygen evaluation was completed and patient will require oxygen dependent with ambulation/exertion. Discussed with case management arrangements being made with [place] for authorization and delivery of oxygen. Discharge pending obtaining home O2. Physical exam: Patient seen and fully evaluated at bedside this morning. Patient is doing quite well. Patient has been successfully weaned off of oxygen and at rest is maintaining SpO2 of 90% upper RN with ambulation patient To 86%. This Was Discussed with Case Management, Patient to Have Arrangements for Home O2 and Awaiting Authorization. Vital signs reviewed and stable. General: Nontoxic, no distress and appears stated age. Derm: Skin warm and dry, normal coloration for ethnicity. Head: Atraumatic, normocephalic and symmetric. Eyes: EOMs intact, no lid lag, and anicteric sclera Mouth: no lip lesions, mucus membranes moist Cardiovascular: regular rate and rhythm with normal S1S2, no murmur, positive posterior tibial pulses bilaterally, and cap refill < 2 seconds. Lungs: Respirations even, regular, and unlabored on 2 L O2 via nasal cannula. Lungs diminished with no noted wheezes, rhonchi, or rales. No accessory muscle usage. Abdominal: soft, nontender to palpation, no guarding, no appreciable organomega ly Ext: ROM intact. No gross muscle atrophy, no edema, no contractures Neuro: Speech clear, face symmetrical and CN II-XII grossly intact with no noted focal neuro deficits Psych: Alert and oriented to person, place, time, and situation. Appropriate and pleasant affect. Assessment and Plan of Care: Acute respiratory failure with hypoxia RSV infection with tracheobronchitis and community-acquired pneumonia Sepsis secondary to above -Continue oxygen supplementation as needed to maintain SpO2 equal to or greater than 90%, wean as patient tolerates. -Continue Duonebs scheduled four times daily and as needed for SOB and/or wheezing -Continue Pulmicort 1 puff twice daily -Steroids: Continue Prednisone 40 mg daily (day 5 of oral steroids) -Antibiotics: Patient completed course of IV antibiotics with azithromycin and Rocephin. -Repeat chest x-ray completed 09/06/23 showed negative for acute cardiopulmonary process showing basilar airspace opacities similar likely representing atelectasis. NSTEMI with triple vessel occlusive coronary artery disease Newly developed left bundle branch block Acute systolic heart failure with EF of 35-40% Elevated d-dimer, bilateral lower extremity Dopplers were negative patient is unstable to be taken down for CTA at this time Hypertension Hyperlipidemia History of CAD History of CVA -Echocardiogram showing a reduced EF of 35-40% with mid to distal anteroseptal and anterior wall hypokinesia and anterioapical hypokinesia. -On 09/04/23 patient underwent a cardiac catheterization showing severe occlusive coronary artery disease with 70-80% stenosis of distal left main, 100% of ostial LAD, 80-90% of ostial PDA, and 80% of proximal obtuse marginal. -Cardiothoracic surgery evaluated stating patient is a very poor surgical candidate and not a surgical candidate for revascularization surgery.Cardiothoracic surgery evaluated stating patient is a very poor surgical candidate and not a surgical candidate for revascularization surgery. -Cardiology evaluated and clearing patient from cardiac perspective, stating no plans for cardiac intervention during this hospitalization. Recommending continued agressive medical management and outpatient follow-up in their office with Dr. Horvath in 2 weeks. -Patient to continue with cardiac medication regimen with aspirin 81 mg daily, atorvastatin 80 mg nightly, carvedilol 6.25 mg twice daily, Plavix 75 mg daily, and losartan 12.5 mg daily. -Could consider SGLT2 inhibitor if GFR remains > 45 Acute kidney injury on stage IIIb chronic kidney disease Renal function remains elevated but stable with BUN 67, creatinine 1.62, and GFR of 39 with baseline creatinine of 1.3. Data and imaging reviewed: -Vital signs reviewed. Blood pressure 135/62, heart rate 61, respiratory rate 16, temp 97.3F, and a CO2 of 95% on 2 L O2 via nasal cannula. -Morning labs reviewed. CBC showing normocytic anemia with hemoglobin of 11.5 and mild leukocytosis with WBC count of 11.2. BMP showing hyponatremia with sodium of 134, BUN of 51, creatinine 1.35, and GFR of 49. CODE STATUS: Full code DVT prophylaxis: heparin Anticipated discharge date: Within the next 24 hours, awaiting [place] insurance authorization for home oxygen Anticipated discharge place: Home with home care and palliative care Patient was seen independently by Nurse Pracitioner. This document was prepared using [employer] dictation software. Please allow for errors in outcomes analyst, while rare they do occur. I reviewed the documentation as provided by the RAE above, who is the original author of this note. I agree with the documented assessment and plan, with the following changes: none Objective - Vital Signs Vital signs: Vital Signs Temp 97.4 F L 09/10/23 03:52 Pulse 59 L 09/10/23 03:52 Resp 18 09/10/23 03:52 BP 133/61 09/10/23 03:52 Pulse Ox 98 09/10/23 03:52 FiO2 30 09/09/23 09:05 Intake & Output 09/09/23 09/10/23 09/10/23 18:59 06:59 18:59 Intake Total 1192 Output Total 1000 1300 200 Balance 192 -1300 -200 Intake: IV 10 Invasive Line 3 10 Oral 1182 Output: Urine 1000 1300 200 Other: Voiding Method Bedside Commode Bedside Commode Urinal Urinal # Bowel Movements 1 - Labs CBC & Chem 7: 09/10/23 08:52 09/10/23 08:52 Labs: Abnormal Lab Results - Last 24 Hours (Table) 09/09/23 09/09/23 09/09/23 Range/Units 08:18 08:18 11:43 WBC 11.0 H (3.8-10.6) k/uL RBC 3.65 L (4.30-5.90) m/uL Hgb 10.5 L (13.0-17.5) gm/dL Hct 32.1 L (39.0-53.0) % Sodium 134 L (137-145) mmol/L BUN 54 H (9-20) mg/dL Creatinine 1.33 H (0.66-1.25) mg/dL Glucose 249 H (74-99) mg/dL POC Glucose (mg/dL) 327 H (70-110) mg/dL Calcium 8.2 L (8.4-10.2) mg/dL Total Protein 5.8 L (6.3-8.2) g/dL Albumin 3.0 L (3.5-5.0) g/dL 09/09/23 09/09/23 09/10/23 Range/Units 17:02 20:01 05:36 WBC (3.8-10.6) k/uL RBC (4.30-5.90) m/uL Hgb (13.0-17.5) gm/dL Hct (39.0-53.0) % Sodium (137-145) mmol/L BUN (9-20) mg/dL Creatinine (0.66-1.25) mg/dL Glucose (74-99) mg/dL POC Glucose (mg/dL) 283 H 352 H 178 H (70-110) mg/dL Calcium (8.4-10.2) mg/dL Total Protein (6.3-8.2) g/dL Albumin (3.5-5.0) g/dL
[2023-09-10 20:12] LABS: Glucose,Whole Blood 306 mg/dL (70-110)
[2023-09-10] MEDS: INSULIN DETEMIR (LEVEMIR) 100 UNIT/ML SYR SQ SCH (20:42)
[2023-09-10] MEDS: ALPRAZolam 0.5 MG TAB PO SCH (20:42)
[2023-09-10] MEDS: ATORVASTATIN 80 MG TAB PO SCH (20:42)
[2023-09-11 06:08] LABS: Glucose,Whole Blood 266 mg/dL (70-110)
[2023-09-11] MEDS: INSULIN ASPART (NovoLOG) 100 UNIT/ML VIAL SQ SCH ×6 (06:46→18:42)
[2023-09-11] MEDS: carvediloL 6.25 MG TAB PO SCH ×2 (06:46→18:04)
[2023-09-11] MEDS: IPRATROPIUM-ALBUTEROL 3 ML NEB INHALATION SCH ×3 (08:37→15:26)
[2023-09-11] MEDS: BUDESONIDE 1 MG/2 ML NEBU INHALATION SCH (08:37)
[2023-09-11] MEDS: predniSONE 20 MG TAB PO SCH (09:39)
[2023-09-11] MEDS: PANTOPRAZOLE 40 MG TABLET PO SCH (09:39)
[2023-09-11 09:40] VITALS: RESP 18
[2023-09-11] MEDS: FUROSEMIDE 40 MG TAB PO SCH ×2 (09:40→18:04)
[2023-09-11] MEDS: HEPARIN SODIUM,PORCINE 5,000 UNIT/ML 1 ML VIAL SQ SCH (09:40)
[2023-09-11] MEDS: LOSARTAN 25 MG TAB PO SCH (09:40)
[2023-09-11] MEDS: CLOPIDOGREL 75 MG TAB PO SCH (09:40)
[2023-09-11] MEDS: ASPIRIN 81 MG PO SCH (09:40)
[2023-09-11] MEDS: FINASTERIDE 5 MG TAB PO SCH (09:40)
[2023-09-11 11:50] LABS: Glucose,Whole Blood 216 mg/dL (70-110)
--- NOTE | 2023-09-11 12:03 | P.PN ---
Subjective Patient is seen for follow-up for chronic kidney disease. Baseline creatinine 1.2-1.4 mg/dL Status post cardiac catheterization with significant disease and deemed to be not good surgical candidate at this time. Patient is also maintained on Lasix for CHF and volume overload noted on chest x-ray. He also has underlying RSV infection. No significant complaints today. Serum creatinine decreased to 1.3 . 24-hour urine output documented at 2100 mL. . Patient is currently off of oxygen and maintained on room air with O2 sats at 98%. Objective - Vital Signs Vital signs: Vital Signs Temp 98.2 F 09/11/23 09:37 Pulse 62 09/11/23 09:37 Resp 18 09/11/23 09:37 BP 135/62 09/11/23 09:37 Pulse Ox 96 09/11/23 09:37 FiO2 30 09/10/23 09:15 Intake & Output 09/10/23 09/11/23 09/11/23 18:59 06:59 18:59 Intake Total 368 358 Output Total 500 1625 Balance -132 -1267 Weight 136 kg 81.2 kg Intake: IV 10 Invasive Line 3 10 Oral 358 358 Output: Urine 500 1625 Other: Voiding Method Bedside Commode Bedside Commode Urinal Urinal # Voids 1 1 1 # Bowel Movements 1 1 1 - Exam Patient is awake, comfortable, no acute distress Examination of the heart S1 and S2 Examination of the lungs bilateral breath sounds are heard Abdomen is soft obese nontender Examination of lower extremities shows no significant edema bilaterally [facility] exam grossly intact - Labs CBC & Chem 7: 09/10/23 08:52 09/10/23 08:52 Labs: Abnormal Lab Results - Last 24 Hours (Table) 09/10/23 09/10/23 09/11/23 Range/Units 16:26 19:59 05:50 POC Glucose (mg/dL) 315 H 306 H 266 H (70-110) mg/dL 09/11/23 Range/Units 11:44 POC Glucose (mg/dL) 216 H (70-110) mg/dL Assessment and Plan Assessment: 1. 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 No hydronephrosis noted on kidney ultrasound. Possible mild acute kidney injury. Nonoliguric 2. Acute hypoxic respiratory failure secondary to CHF and RSV infection. 3. Acute RSV infection. 4. History of coronary artery disease with prior stenting. 5. Diabetes mellitus. 6. Chronic systolic CHF with ejection fraction of 35-40%. 7. Anemia of chronic kidney disease. Iron deficiency noted. 8. Non-ST elevated myocardial infarction. Cardiology following. Status post cardiac catheterization which showed significant disease and patient is deemed to be not a good surgical candidate at this time. Plan for for LAD stent wilder cement currently on hold. Plan: Continue off of IV fluids Continue with Lasix. Repeat labs in a.m. Avoid nephrotoxic agents Follow-up as outpatient for CK D
--- NOTE | 2023-09-11 14:18 | P.PN ---
Subjective Progress Note Date: 09/11/23 Principal diagnosis: Shortness of breath. This is an 82-year-old white male with history of multiple medical problems including CVA, TIA, type 2 diabetes, hypertension, previous ID, patient was actually admitted on 08/30/2023, admitted with the chief complaint of shortness of breath and cough. Patient tested positive for RSV on his admission, and chest x-ray showed bibasilar opacities. Patient was also complaining of acute onset chest pain, and he was noted to have elevated troponin. Cardiology saw the patient, and felt that the patient has ischemic cardiomyopathy, in addition he had RSV acute tracheobronchitis/URI secondary to RSV, pro-calcitonin level was also elevated, and patient has been receiving antibiotics in the form of Rocephin and Zithromax. Patient also developed worsening kidney disease, he is known to have history of stage IIIB chronic kidney disease, baseline creatinine is in the range of 1.6-1.8, but considering his worsening renal functioning, patient was seen by nephrology on consultation, and recommended mostly encouraging oral intakes, and avoiding nephrotoxins as well as iron studies. Patient is also now being considered for possible cardiac catheterization. He does have ischemic cardiomyopathy with LV dysfunction and ejection fraction of 35-40%. According to the patient is a lifelong nonsmoker, but during my evaluation the patient had diffuse rhonchi and wheezing bilaterally. Patient has been almost BiPAP dependent with IPAP of 12 and EPAP of 6 and 40% FiO2, does not feel well when he gets switched to nasal cannula continues to have intermittent episodes of cough wheezing and shortness of breath. Again the patient has no previous history of COPD and he had no review a smoking history according to the patient. Chest x-ray from yesterday showed left lower lobe atelectasis, possible pneumonia, no evidence of congestive heart failure. Again his pro-calcitonin level was noted in the range of 0.5 7. The patient is seen today 09/04/2023 in follow-up on the selective care unit. He is currently resting comfortably in bed. Awake and alert in no acute distress. He is improved today compared to yesterday. Currently off the BiPAP and maintaining O2 saturations in the 90s on 6 L/m per nasal cannula. He's been afebrile. Hemodynamically stable. He did undergo cardiac catheterization today which did reveal a 70-80% distal left main disease, 100% ostial LAD occlusion with faint right to left collaterals, 80-90% ostial PDA, 80% proximal OM1 occlusion. Current plan is to treat medically with a surgical consultation. White count 5.8. Hemoglobin 10.5. Platelets 187. Sodium 136. Potassium 4.3. Bicarb 22. BUN 53. Creatinine 1.50. He remains on a heparin drip. Continued on bronchodilators, Solu-Medrol. He is on IV diuretics. Currently in a -1.8 L balance. He remains on ceftriaxone. Completed azithromycin. Patient was reexamined today on 09/05/2023, continues to have shortness of breath and wheezing, nonetheless the wheezing seems to be improving, and I have transitioned his methylprednisolone to oral prednisone. Patient had cardiac catheterization, and it showed significant coronary artery disease, cardiothoracic surgery was consulted, however considering the patient's overall issues at present he is not a good candidate for surgery at this point. Patient remains BiPAP dependent, WBC count is 11.1 hemoglobin 10.4 basic metabolic profile is normal, creatinine is 1.68, baseline is 1.7 chest x-ray from 09/03, showed bilateral perihilar infiltrates, improving compared to his previous chest x-ray Patient was reevaluated today on 09/06/2023. Patient is feeling better, remains on BiPAP, however I am recommending that he goes on nasal cannula. Chest x-ray has shown significant improvement, minimal atelectasis is noted at the left base, otherwise chest x-ray is improved. Patient is on BiPAP, and I'm recommending that he goes to nasal cannula, O2 sats is 99% on 40% BiPAP. Elect rolytes are normal BUN is 69 and creatinine 1.81 blood sugar is 225. Patient is now off heparin, and he is on aspirin and Plavix instead. Cardiology is considering intervention on his LAD disease, since the patient is a poor candidate for surgery. However considering about his renal status and elevated creatinine Progress note dated 09/07/2023. This is an 82-year-old male who is seen today in room 375. The patient's currently on BiPAP, settings of 14/6, and 40%. He did test positive for r espiratory syncytial virus. The patient is also receiving saline at 20 mL an hour. Clinically, he looks reasonably stable. He states that he is feeling better. Laboratory data includes a white count of 9.7, hemoglobin 10.3, hematocrit 31.6, and a platelet count of 195,000. Sodium 134, potassium 4.8, chlorides 103, CO2 23, BUN 67, and creatinine 1.62. Chest x-ray from September 06 shows bibasilar atelectasis. Progress note dated 09/08/2023. 82-year-old male, seen today in room 375. The patient continues on BiPAP, with settings of 14/6, and 30%. We've not on BiPAP, he's on 2 L of oxygen by nasal cannula. The patient tested positive for RSV, was thought to have viral pneumonia/viral tracheobronchitis. The patient is not receiving any IV fluids. He seemed relatively comfortable, in a sitting up in a chair, next to his bed. Laboratory data today only includes a glucose of 250. No chest x-ray today. Progress note dated 09/09/2023. 82-year-old male seen in room 375. The patient did not use BiPAP last night. Currently, he's on 2 L of oxygen. He looks relatively stable. The patient's Pulmicort will be discontinued. Current laboratory data includes a white count of 11, hemoglobin 10.5, hematocrit 32.1, and a platelet count of 188,000. Sodium 134, potassium 4.8, chlorides 102, CO2 24, BUN 54, and creatinine 1.33. Albumin is 3. Calcium is 8.2. Progress note dated 09/10/2023. 82-year-old male seen in room 375. The patient apparently did not use BiPAP again last night. He is currently on 2 L. He is doing much better. He denies any worsening shortness breath, cough, wheezing, chest tightness, or phlegm production. Laboratory data includes a white count 11.2, hemoglobin 11.5, hematocrit 35.3, and a platelet count of 201,000. Sodium 134, potassium 4.6, ch lorides 103, CO2 26, BUN 51, creatinine 1.35. Glucose 158. Calcium 8.3. Magnesium 2.3. Chest x-ray from yesterday shows it to be normal. Progress note dated 09/11/2023. 82-year-old male seen in room 375. The patient is currently on room air. He has not been using BiPAP over the last few nights. He's not receiving any IV fluids. The patient was admitted with a diagnosis of RSV associated tracheobronchitis. He's been on corticosteroids for that. Each day, he's a bit better. No new labs today other than a glucose of 216. Objective - Vital Signs Vital signs: Vital Signs Temp 97.8 F 09/11/23 12:46 Pulse 69 09/11/23 12:46 Resp 18 09/11/23 12:46 BP 149/65 09/11/23 12:46 Pulse Ox 96 09/11/23 12:46 FiO2 30 09/10/23 09:15 Intake & Output 09/10/23 09/11/23 09/11/23 18:59 06:59 18:59 Intake Total 368 358 Output Total 500 1625 Balance -132 -1267 Weight 136 kg 81.2 kg Intake: IV 10 Invasive Line 3 10 Oral 358 358 Output: Urine 500 1625 Other: Voiding Method Bedside Commode Bedside Commode Bedside Commode Urinal Urinal Urinal # Voids 1 1 2 # Bowel Movements 1 1 1 - Exam No acute distress, oriented 3. Currently on room air HEENT examination is grossly unremarkable. Neck supple. Full range of motion. No adenopathy thyromegaly or neck vein distention. Cardiovascular examination reveals regular rhythm rate. S1-S2 normal. No S3 or S4. No discernible murmur noted. Heart sounds distant. Heart rate 69 bpm. Lungs reveal rhonchi. No wheezes or crackles. Breath sounds equal bilaterally. Saturations are 96% on room air. Abdomen soft bowel sounds are heard. No masses or tenderness. Extremities are intact. No cyanosis clubbing or edema. Skin is without rash or lesion. Neurologic examination is brief but nonfocal. - Labs CBC & Chem 7: 09/10/23 08:52 09/10/23 08:52 Labs: Abnormal Lab Results - Last 24 Hours (Table) 09/10/23 09/10/23 09/11/23 Range/Units 16:26 19:59 05:50 POC Glucose (mg/dL) 315 H 306 H 266 H (70-110) mg/dL 09/11/23 Range/Units 11:44 POC Glucose (mg/dL) 216 H (70-110) mg/dL Assessment and Plan Assessment: Acute hypoxemic respiratory failure secondary to RSV associated tracheobronchitis. Acute community-acquired pneumonia. Reactive bronchospasm and bronchial inflammation. Acute systolic CHF. Acute on chronic kidney disease. Benign essential hypertension. History of CVA. History of PTSD. Triple-vessel CAD. Plan: Plan dated 09/07/2023. The patient continues on bronchodilators, antibiotics, corticosteroids, and updrafts. The patient is currently on BiPAP, but can be converted nasal O2. Additional recommendations and suggestions are forthcoming. We will continue to follow the patient, make recommendations along the way. Labs, x-rays, medications are reviewed. Chest x-ray from September 06 shows bi-basilar atelectasis. No additional recommendations are made. Prognosis is certainly guarded. Plan dated 09/08/2023. The patient appears to be relatively comfortable. He goes between BiPAP, and 2 L by nasal cannula. Additional recommendations and suggestions are forthcoming. He continues on bronchodilators, antibiotics, corticosteroids, and updrafts. Labs, x-rays, medications are reviewed. We will continue to follow the patient, make recommendations along the way. Prognosis is guarded. Plan dated 09/09/2023. The patient apparently did not use BiPAP last night. He looks very comfortable on 2 L. Saturations are 96%. Labs, x-rays, and medications are reviewed. He continues on prednisone. Budesonide solution was discontinued. We will continue to follow, make recommendations along the way. Overall prognosis remains guarded, but the patient is headed in the right direction. Hopeful discharge in the near future. Plan dated 09/10/2023. The patient's doing much better. The patient's currently on 2 L. The patient did not use of BiPAP device last night. Labs, x-rays, and medications are reviewed. His vital signs are stable. The patient could be considered for possible discharge in the near future. We will leave that up to the primary service. The patient was admitted with a diagnosis of respiratory syncytial virus-induced tracheobronchitis. Plan dated 09/11/2023. The patient appears to be doing much better. The patient's currently on room air. Is not receiving any IV fluids. Labs, x-rays, and medications are reviewed. The patient continues on breathing treatments, and corticosteroids. Additional recommendations and suggestions are forthcoming. Overall prognosis remains guarded. We will continue to follow the patient, and make recommen dations along the way. Time with Patient: Less than 30
--- NOTE | 2023-09-11 15:08 | P.DS ---
Providers Date of admission: 08/30/23 05:30 Expected date of discharge: 09/11/23 Attending physician: Clemencia Temple MD Consults: 08/30/23 05:20 Consult Physician Routine Consulting Provider: Isiah Davis Consult Reason/Comments: chest pain Do you want consulting provider notified?: Yes, Notify in am 09/01/23 13:01 Consult Physician Routine Consulting Provider: Katie Barker Consult Reason/Comments: CKD needs cardiac cath Do you want consulting provider notified?: Yes 09/03/23 11:22 Consult Physician Urgent Consulting Provider: Kevin Bey Consult Reason/Comments: RSV+, BIPAP Do you want consulting provider notified?: Yes 09/04/23 13:41 Consult Physician Routine Consulting Provider: Samy Martines Consult Reason/Comments: NSTEMI, recurrent HF, 3 vessel disease, failed PCI Do you want consulting provider notified?: Yes Primary care physician: [facility] Hospital Course: Discharge Diagnosis: Acute respiratory failure with hypoxia. Resolved. Patient initially requiring BiPAP 24 7 for extended period of time (08/30/23-09/08/23). Patient successfully weaned off of BiPAP on 09/08/23. Secondary to multiple comorbidities and extensive occlusive coronary artery disease and patient not being a candidate for revascularization, patient discharged home on oxygen 2 L with exertion. Patient being discharged home with home and referral for palliative care. Patient to follow up outpatient with smutter in 2 weeks. Medication changes were made. Cardiology discontinuing Imdur and lisinopril and starting patient on losartan 12.5 mg daily. RSV infection with tracheobronchitis and community-acquired pneumonia. Sepsis secondary to above. NSTEMI with triple vessel occlusive coronary artery disease. Newly developed left bundle branch block. Acute systolic heart failure with EF of 35-40% Elevated d-dimer, bilateral lower extremity Dopplers were negative. Believed to be Reactive secondary to acute RSV with tracheobronchitis Hypertension Hyperlipidemia History of CAD History of CVA Acute injury on stage IIIb chronic kidney disease. Resolved. Patient back to baseline renal function with BUN of 51, creatinine 1.35, and GFR 49. Type 2 insulin-dependent diabetes mellitus with hyperglycemia, patient to continue with insulin glargine 35 units daily and resume Glipizide 20 mg twice daily and Jardiance 25 mg daily Hospital Course: Patient is a very pleasant 82-year-old male with a past medical history of CAD with previous WI and stenting of LAD on dual antiplatelet therapy with aspirin and Plavix, hypertension, hyperlipidemia, CVA, stage IIIB chronic kidney disease, and BPH. Patient presented to the emergency department on 08/30/23 with a chief complaint of shortness of breath and reports of crushing chest pain. Upon arrival to our facility patient was found to be in acute respiratory distress with respiratory rate of 32 breaths per minute and SpO2 of 90% on 15 L O2 via and nonrebreather mask requiring immediate placement on BiPAP. Vital signs otherwise showed hypertension with blood pressure 182/96, tachycardia with heart rate 113, and elevated temp with axillary temp documented at 101.6F. EKG completed showing sinus tachycardia at 103 bpm with a new onset left bundle branch block. Labs completed and reviewed. CBC showing leukocytosis with WBC count of 13.0. Coagulation profile showing elevated PTT of 21.7 and d-dimer of 2.13. BMP showing acute kidney injury on chronic kidney disease with BUN of 41, creatinine 1.70, and GFR of 37 with baseline creatinine of 1.3. Liver profile showing elevated alkaline phosphatase of 174. Troponin 0.013 and proBNP 1470. Influenza A, influenza B, and Covid PCR were all negative and RSV was positive. Patient was admitted under our services with consultation to cardiology and pulmonology. Troponins trended increasing from initial 0.013 up to 4.650. Repeat EKG completed still showing sinus mechanism at 84 bpm with continued left bundle branch block. Patient was started on heparin infusion. Bilateral lower extremity Dopplers were obtained negative for DVT, secondary to need for continuous BiPAP patient was unable to undergo CTA. Patient remained in acute hypoxic respiratory failure requiring continuous BiPAP and on heparin infusion secondary to NSTEMI. Echocardiogram completed showing a reduced EF of 35-40% with mid to distal anteroseptal and anterior wall hypokinesia and anterioapical hypokinesiaOn 09/04/23 patient underwent a cardiac catheterization showing severe occlusive coronary artery disease with 70-80% stenosis of distal left main, 100% of ostial LAD, 80-90% of ostial PDA, and 80% of proximal obtuse marginal. Cardiology recommending consultation to cardiothoracic surgery for revascularization. Cardiothoracic surgery evaluated stating patient is a very poor surgical candidate and not a surgical candidate for revascularization surgery. Patient has been treated medically and significantly improved. He was on continue with BiPAP and has successfully been weaned off on 09/08/23. Home oxygen evaluation was completed and patient will require oxygen dependent with ambulation/exertion. Discussed with case management arrangements being made with [facility] for authorization and delivery of oxygen. [facility] approved home oxygen delivery. Patient is medically stable for discharge at this time, he has been cleared by cardiology, cardiothoracic surgery, and pulmonology to follow up outpatient. Medically, patient is stable and reports that he is ready to go home with his family. 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 Patient discharged home with home and palliative care. Physical exam: Vital signs reviewed and stable. General: Nontoxic, no distress and appears stated age. Derm: Skin warm and dry, normal coloration for ethnicity. Head: Atraumatic, normocephalic and symmetric. Eyes: EOMs intact, no lid lag, and anicteric sclera Mouth: no lip lesions, mucus membranes moist Cardiovascular: regular rate and rhythm with normal S1S2, no murmur, positive posterior tibial pulses bilaterally, and cap refill < 2 seconds. Lungs: Respirations even, regular, and unlabored on 2 L O2 via nasal cannula. Lungs diminished with no noted wheezes, rhonchi, or rales. No accessory muscle usage. Abdominal: soft, nontender to palpation, no guarding, no appreciable organomegaly Ext: ROM intact. No gross muscle atrophy, no edema, no contractures Neuro: Speech clear, face symmetrical and CN II-XII grossly intact with no noted focal neuro deficits Psych: Alert and oriented to person, place, time, and situation. Appropriate and pleasant affect. Assessment and Plan of Care: A total of 42 minutes of time were spent preparing this complex discharge summary. Pt was discharged on 09/11/23 11:40 AM Patient was seen independently by Nurse Practitioner. This document was prepared using [employer] dictation software. Please allow for errors in lever operator while rare they do occur. I reviewed the documentation as provided by the RAE above, who is the original author of this note. I agree with the documented assessment and plan, with the following changes: none Patient Condition at Discharge: Stable Plan - Discharge Summary Discharge Rx Participant: Yes New Discharge Prescriptions: New Ipratropium-Albuterol Nebulize [Duoneb 0.5 mg-3 mg/3 ml Soln] 3 ml INHALATION QID 30 Days #120 each Budesonide [Pulmicort] 1 mg INHALATION RT-BID 30 Days #120 ml Losartan [Cozaar] 12.5 mg PO DAILY 30 Days #15 tab predniSONE See Taper PO DIRECTED 12 Days #30 tab Continue Tamsulosin HCl [Flomax] 0.4 mg PO BID Omeprazole [PriLOSEC] 20 mg PO DAILY Finasteride [Proscar] 5 mg PO DAILY glipiZIDE [Glucotrol] 20 mg PO AC-BID Aspirin [Perley Aspirin EC] 81 mg PO DAILY DULoxetine HCL [Cymbalta] 60 mg PO DAILY Levothyroxine Sodium [Synthroid] 25 mcg PO DAILY Magnesium Oxide 400 mg PO BID Atorvastatin Calcium [Lipitor] 80 mg PO HS Insulin Glargine,Hum.rec.anlog [Insulin Glargine Solostar] 35 units SQ DAILY Sennosides/Docusate Sodium [Senna Plus 8.6-50 mg Tablet] 1 tab PO DAILY PRN PRN Reason: Constipation Carboxymethylcellulose Sodium [Thera Tears] 1 drop BOTH EYES QID Clopidogrel [Plavix] 75 mg PO DAILY #90 tab Nitroglycerin Sl Tabs [Nitrostat] 0.4 mg SL Q5M PRN PRN Reason: Chest Pain carvediloL [Coreg] 6.25 mg PO BID-W/MEALS #60 tab Furosemide [Lasix] 40 mg PO DAILY #30 tablet Empagliflozin [Jardiance] 25 mg PO DAILY Mv-Min/Folic/K1/Lycopen/Lutein [Centrum Silver Men Tablet] 1 tab PO DAILY Discontinued Isosorbide Mononitrate ER [Imdur] 30 mg PO DAILY lisinopriL [Zestril] 10 mg PO DAILY Discharge Medication List Aspirin [Perley Aspirin EC] 81 mg PO DAILY 10/03/22 [History] Atorvastatin Calcium [Lipitor] 80 mg PO HS 10/03/22 [History] Carboxymethylcellulose Sodium [Thera Tears] 1 drop BOTH EYES QID 10/03/22 [History] Finasteride [Proscar] 5 mg PO DAILY 10/03/22 [History] Insulin Glargine,Hum.rec.anlog [Insulin Glargine Solostar] 35 units SQ DAILY 10/03/22 [History] Magnesium Oxide 400 mg PO BID 10/03/22 [History] Omeprazole [PriLOSEC] 20 mg PO DAILY 10/03/22 [History] Sennosides/Docusate Sodium [Senna Plus 8.6-50 mg Tablet] 1 tab PO DAILY PRN 10/03/22 [History] Tamsulosin HCl [Flomax] 0.4 mg PO BID 10/03/22 [History] glipiZIDE [Glucotrol] 20 mg PO AC-BID 10/03/22 [History] Clopidogrel [Plavix] 75 mg PO DAILY #90 tab 10/07/22 [Rx] Nitroglycerin Sl Tabs [Nitrostat] 0.4 mg SL Q5M PRN 11/05/22 [History] Furosemide [Lasix] 40 mg PO DAILY #30 tablet 11/08/22 [Rx] carvediloL [Coreg] 6.25 mg PO BID-W/MEALS #60 tab 11/08/22 [Rx] DULoxetine HCL [Cymbalta] 60 mg PO DAILY 08/30/23 [History] Empagliflozin [Jardiance] 25 mg PO DAILY 08/30/23 [History] Levothyroxine Sodium [Synthroid] 25 mcg PO DAILY 08/30/23 [History] Mv-Min/Folic/K1/Lycopen/Lutein [Centrum Silver Men Tablet] 1 tab PO DAILY 08/30/23 [History] Budesonide [Pulmicort] 1 mg INHALATION RT-BID 30 Days #120 ml 09/11/23 [Rx] Ipratropium-Albuterol Nebulize [Duoneb 0.5 mg-3 mg/3 ml Soln] 3 ml INHALATION QID 30 Days #120 each 09/11/23 [Rx] Losartan [Cozaar] 12.5 mg PO DAILY 30 Days #15 tab 09/11/23 [Rx] predniSONE See Taper PO DIRECTED 12 Days #30 tab 09/11/23 [Rx] Follow up Appointment(s)/Referral(s): Tereso Alexis DO [Doctor of Osteopathic Medicine] - 1 Week [facility] [NON-STAFF] - (Set up by [facility] Bear Nelson MD [STAFF PHYSICIAN] - [address] [facility] [Primary Care Provider] - 1-2 days Activity/Diet/Wound Care/Special Instructions: Activity: As tolerated. Take breaks as needed. Diet: Heart healthy and carb consistent diet. Avoid salts, or foods with hidden salts such as canned or boxed foods and frozen dinners. Extra salt makes your heart work harder and traps the fluid in your body for longer. Special Instructions: Take all of your medications as directed and remember to keep all of your doctor's appointments and follow-up as needed. Wishing you a truly blast and wonderful holiday season and happy new year!!! Again thank you for your service, it is always an honor having the opportunity to provide care for a !!!! Thank you for allowing us to participate in your care, it was truly a pleasure having you for our patient!!! Oxygen ordered through [facility]: #[phone] Discharge Disposition: HOME WITH HOME HEALTH SERVICES
[2023-09-11 16:38] VITALS: BP 136/66; PULSE 69; TEMP 98
[2023-09-11] MEDS: TAMSULOSIN 0.4 MG CAP.ER.24H PO SCH (18:04)
[2023-09-11] MEDS: NITROGLYCERIN SL TABS 0.4 MG TAB SUBLINGUAL PRN (18:56)
== END 2023-09-11 19:48 | disposition home health service (06) | DRG 871 ==
LOC: EC 00:59 → 3SCARD 05:30
PROVIDERS: ADMIT Internal Medicine; ATTEND Internal Medicine
PROC: 5A09457 Assistance with Respiratory Ventilation, 24-96 Consecutive Hours, Continuous Positive Airway Pressure (ICD-10-PCS; 2023-08-30)
PROC: B41F1ZZ Fluoroscopy of Right Lower Extremity Arteries using Low Osmolar Contrast (ICD-10-PCS; 2023-09-04)
PROC: 4A023N7 Measurement of Cardiac Sampling and Pressure, Left Heart, Percutaneous Approach (ICD-10-PCS; principal; 2023-09-04 09:00)
PROC: B2111ZZ Fluoroscopy of Multiple Coronary Arteries using Low Osmolar Contrast (ICD-10-PCS; 2023-09-04 09:00)
DX: A41.89 Other specified sepsis (principal); I21.4 Non-ST elevation (NSTEMI) myocardial infarction; J96.01 Acute respiratory failure with hypoxia; I50.43 Acute on chronic combined systolic (congestive) and diastolic (congestive) heart failure; J12.1 Respiratory syncytial virus pneumonia; N17.9 Acute kidney failure, unspecified; I13.0 Hypertensive heart and chronic kidney disease with heart failure and stage 1 through stage 4 chronic kidney disease, or unspecified chronic kidney disease; J44.0 Chronic obstructive pulmonary disease with (acute) lower respiratory infection; E87.1 Hypo-osmolality and hyponatremia; J44.1 Chronic obstructive pulmonary disease with (acute) exacerbation; I16.1 Hypertensive emergency; J98.11 Atelectasis; D63.1 Anemia in chronic kidney disease; E11.22 Type 2 diabetes mellitus with diabetic chronic kidney disease; J20.5 Acute bronchitis due to respiratory syncytial virus; E11.65 Type 2 diabetes mellitus with hyperglycemia; N18.32 Chronic kidney disease, stage 3b; R65.20 Severe sepsis without septic shock; Z79.4 Long term (current) use of insulin; I25.10 Atherosclerotic heart disease of native coronary artery without angina pectoris; I25.5 Ischemic cardiomyopathy; I44.0 Atrioventricular block, first degree; I44.7 Left bundle-branch block, unspecified; I08.0 Rheumatic disorders of both mitral and aortic valves; E78.5 Hyperlipidemia, unspecified; N40.0 Benign prostatic hyperplasia without lower urinary tract symptoms; R79.1 Abnormal coagulation profile; E61.1 Iron deficiency; F32.A Depression, unspecified; F43.10 Post-traumatic stress disorder, unspecified; G47.33 Obstructive sleep apnea (adult) (pediatric); H91.90 Unspecified hearing loss, unspecified ear; I25.2 Old myocardial infarction; N64.4 Mastodynia; Z79.82 Long term (current) use of aspirin; Z79.02 Long term (current) use of antithrombotics/antiplatelets; Z79.84 Long term (current) use of oral hypoglycemic drugs; Z79.890 Hormone replacement therapy; Z79.899 Other long term (current) drug therapy; Z78.9 Other specified health status; Z87.891 Personal history of nicotine dependence; Z86.73 Personal history of transient ischemic attack (TIA), and cerebral infarction without residual deficits; Z95.5 Presence of coronary angioplasty implant and graft; Z86.16 Personal history of COVID-19
CPT/HCPCS: 36415; 71045; 76770; 76937; 80048; 80053; 80061; 82728; 83036; 83540; 83550; 83735; 83880; 84145; 84443; 84484; 85025; 85027; 85379; 85610; 85730; 87636; 93005; 93306; 93458; 94640; 94660; 94760; 96365; 96366; 96375; 99291

== ENCOUNTER 2023-10-08 14:40 | Emergency (ER) | payer OTHER, MEDICARE ==
[2023-10-08 15:02] VITALS: RESP 18; TEMP 97.9
--- NOTE | 2023-10-08 16:18 | ED ---
Headache HPI - General Chief Complaint: Headache Stated Complaint: headache Time Seen by Provider: 10/08/23 16:18 Source: patient, RN notes reviewed Mode of arrival: ambulatory Limitations: no limitations - History of Present Illness Initial Comments: 83-year-old male presenting with chief complaint of headache. Headache is located primarily on the right side of the head. Patient admits to congestion and sinus pressure and cough. Symptoms have been ongoing for 3 days. States that at this time the pain feels a bit better than it has. Admits to some nausea with no vomiting. No dizziness, weakness, numbness, tingling. No injury or trauma. No chest pain or difficulty breathing. No vision or hearing changes. - Related Data Home Medications Medication Instructions Recorded Confirmed Aspirin [[place] Aspirin EC] 81 mg PO DAILY 10/03/22 08/30/23 Atorvastatin Calcium [Lipitor] 80 mg PO HS 10/03/22 08/30/23 Carboxymethylcellulose Sodium 1 drop BOTH EYES QID 10/03/22 08/30/23 [Thera Tears] Finasteride [Proscar] 5 mg PO DAILY 10/03/22 08/30/23 Insulin Glargine,Hum.rec.anlog 35 units SQ DAILY 10/03/22 08/30/23 [Insulin Glargine Solostar] Magnesium Oxide 400 mg PO BID 10/03/22 08/30/23 Omeprazole [PriLOSEC] 20 mg PO DAILY 10/03/22 08/30/23 Sennosides/Docusate Sodium [Senna 1 tab PO DAILY PRN 10/03/22 08/30/23 Plus 8.6-50 mg Tablet] Tamsulosin HCl [Flomax] 0.4 mg PO BID 10/03/22 08/30/23 glipiZIDE [Glucotrol] 20 mg PO AC-BID 10/03/22 08/30/23 Nitroglycerin Sl Tabs [Nitrostat] 0.4 mg SL Q5M PRN 11/05/22 08/30/23 DULoxetine HCL [Cymbalta] 60 mg PO DAILY 08/30/23 08/30/23 Empagliflozin [Jardiance] 25 mg PO DAILY 08/30/23 08/30/23 Levothyroxine Sodium [Synthroid] 25 mcg PO DAILY 08/30/23 08/30/23 Mv-Min/Folic/K1/Lycopen/Lutein 1 tab PO DAILY 08/30/23 08/30/23 [Centrum Silver Men Tablet] Previous Rx's Medication Instructions Recorded Clopidogrel [Plavix] 75 mg PO DAILY #90 tab 10/07/22 Furosemide [Lasix] 40 mg PO DAILY #30 tablet 11/08/22 carvediloL [Coreg] 6.25 mg PO BID-W/MEALS #60 tab 11/08/22 Budesonide [Pulmicort] 1 mg INHALATION BID 30 Days #60 ml 09/11/23 Budesonide [Pulmicort] 1 mg INHALATION RT-BID 30 Days 09/11/23 #120 ml Ipratropium-Albuterol Nebulize 3 ml INHALATION QID 30 Days #120 09/11/23 [Duoneb 0.5 mg-3 mg/3 ml Soln] each Ipratropium-Albuterol Nebulize 3 ml INHALATION QID 30 Days #120 ml 09/11/23 [Duoneb 0.5 mg-3 mg/3 ml Soln] Losartan [Cozaar] 12.5 mg PO DAILY 30 Days #15 tab 09/11/23 Losartan [Cozaar] 12.5 mg PO DAILY 30 Days #15 tab 09/11/23 predniSONE See Taper PO DIRECTED 12 Days 09/11/23 #30 tab predniSONE See Taper PO DIRECTED 12 Days 09/11/23 #30 tab Amoxic-Pot Clav 875-125Mg 1 tab PO Q12HR 7 Days #14 tab 10/08/23 [Augmentin 875-125] Allergies Allergy/AdvReac Type Severity Reaction Status Date / Time Sulfa (Sulfonamide Allergy Unknown Verified 10/08/23 14:53 Antibiotics) Review of Systems ROS Statement: Those systems with pertinent positive or pertinent negative responses have been documented in the HPI. ROS Other: All systems not noted in ROS Statement are negative. Past Medical History Past Medical History: CVA/TIA, Diabetes Mellitus, Hypertension, Myocardial Infarction ([place]) Additional Past Medical History / Comment(s): Stroke in December of 2021 Last Myocardial Infarction Date:: 10/03/22 History of Any Multi-Drug Resistant Organisms: None Reported Past Surgical History: Orthopedic Surgery Additional Past Surgical History / Comment(s): Urethral surgery-unsure of date Past Anesthesia/Blood Transfusion Reactions: No Reported Reaction Date of Last Stent Placement:: 10/03/2022 Past Psychological History: No Psychological Hx Reported, Depression, PTSD Smoking Status: Former smoker Past Alcohol Use History: None Reported Past Drug Use History: None Reported - Past Family History Father Family Medical History: Hypertension General Exam - General Exam Comments Initial Comments: Visual Physical Exam Vital signs reviewed General: Well-appearing, nontoxic, no acute distress. Head: Normocephalic, atraumatic Eyes: PERRLA, EOMI ENT: Airway patent Chest: Nonlabored breathing Skin: No visual rash, normal skin tone Neuro: Alert and oriented 3 Musculoskeletal: No gross abnormalities Limitations: no limitations General appearance: alert, in no apparent distress Head exam: Present: atraumatic, normocephalic Eye exam: Present: normal appearance, PERRL, EOMI. Absent: periorbital swelling Neck exam: Present: normal inspection. Absent: meningismus Respiratory exam: Present: normal lung sounds bilaterally. Absent: respiratory distress, wheezes, rales, rhonchi, stridor Cardiovascular Exam: Present: regular rate, normal rhythm, normal heart sounds. Absent: systolic murmur, diastolic murmur, rubs, gallop, clicks Neurological exam: Present: alert, oriented X3, normal gait Expanded Patient oriented to: Present: person, place, time Speech: Present: fluid speech Cranial nerves: EOM's Intact: Normal Motor strength exam: RUE: 5, LUE: 5, RLE: 5, LLE: 5 Eye Response: (4) open spontaneously Motor Response: (6) obeys commands Verbal Response: (5) oriented Ian Total: 15 Psychiatric exam: Present: normal affect, normal mood Skin exam: Present: warm, dry Course Vital Signs 10/08/23 10/08/23 14:49 19:02 Temperature 97.9 F 97.9 F Pulse Rate 67 72 Respiratory 18 18 Rate Blood Pressure 149/72 140/70 O2 Sat by Pulse 98 98 Oximetry Medical Decision Making - Medical Decision Making 83-year-old male presenting with chief complaint of headache. Okay on the right side. He has also been experiencing cough and congestion. Ongoing for 3 days. History and physical exam were conducted. GCS is 15 and no evidence of focal neurological deficits. Brain CT without contrast shows no acute intracranial process and right-sided maxillary sinusitis. Headache likely induced by sinusitis given the patient's other symptoms. He is educated on today's findings. Educated on supportive management of sinusitis and treated with Augmentin. Follow-up with PCP. Report back to ER with any new or worsening symptoms. Discussed return parameters and answered all questions. Patient conveyed verbal understanding and agreed to the plan. I discussed this case in detail with my attending Dr. Guo Was pt. sent in by a medical professional or institution (, PA, [employer], urgent care, hospital, or shelter...) When possible be specific @ -[No] Did you speak to anyone other than the patient for history (EMS, parent, family, police, friend...)? What history was obtained from this source @ -[No] Did you review nursing and triage notes (agree or disagree)? Why? @ -[I reviewed and agree with nursing and triage notes] Were old charts reviewed (outside hosp., previous admission, EMS record, old EKG, old radiological studies, urgent care reports/EKG's, shelter records)? Report findings @ -[No old charts were reviewed] Differential Diagnosis (chest pain, altered mental status, abdominal pain women, abdominal pain men, vaginal bleeding, weakness, fever, dyspnea, syncope, hea dache, dizziness, GI bleed, back pain, seizure, CVA, palpatations, mental health, musculoskeletal)? @ -MDM Differential Headache: Migraine, tension, cluster, carbon monoxide, central venous thrombosis, pension karma temporal arteritis, acute closure glaucoma, intercranial hemorrhage, mastoiditis, sinusitis, head injury this is not meant to be an all-inclusive list. EKG interpreted by me (3pts min.). @ -[As above] X-rays interpreted by me (1pt min.). @ -[None done] CT interpreted by me (1pt min.). @ -CT of the brain shows Age appropriate atrophy. Moderate chronic ischemic white matter demyelination. No acute bleed or mass effect. Acute sinusitis involving the right maxillary sinus U/S interpreted by me (1pt. min.). @ -[None done] What testing was considered but not performed or refused? (CT, X-rays, U/S, labs)? Why? @ -[None] What meds were considered but not given or refused? Why? @ -[None] Did you discuss the management of the patient with other professionals (professionals i.e. , PA, [employer], lab, RT, psych nurse, child protective services social worker, deicer tester, teacher, risk officer, correctional case manager)? Give summary @ -[No] Was smoking cessation discussed for >3mins.? @ -[No] Was critical care preformed (if so, how long)? @ -[No] Were there social determinants of health that impacted care today? How? (Homeles sness, low income, unemployed, alcoholism, drug addiction, transportation, low edu. Level, literacy, decrease access to med. care, long-term, rehab)? @ -[No] Was there de-escalation of care discussed even if they declined (Discuss DNR or withdrawal of care, Hospice)? DNR status @ -[No] What co-morbidities impacted this encounter? (DM, HTN, Smoking, COPD, CAD, Cancer, CVA, ARF, Chemo, Hep., AIDS, mental health diagnosis, sleep apnea, morbid obesity)? @ - Was patient admitted / discharged? Hospital course, mention meds given and route, prescriptions, significant lab abnormalities, going to OR and other pertinent info. @ -See above Undiagnosed new problem with uncertain prognosis? @ -[No] Drug Therapy requiring intensive monitoring for toxicity (Heparin, Nitro, Insulin, Cardizem)? @ -[No] Were any procedures done? @ -[No] Diagnosis/symptom? @ -Sinusitis Acute, or Chronic, or Acute on Chronic? @ -Acute Uncomplicated (without systemic symptoms) or Complicated (systemic symptoms)? @ -Uncomplicated Side effects of treatment? @ -[No] Exacerbation, Progression, or Severe Exacerbation? @ -[No] Poses a threat to life or bodily function? How? (Chest pain, [place], [place], pneumonia, PE, COPD, DKA, ARF, appy, cholecystitis, CVA, Diverticulitis, Homicidal, Suicidal, threat to staff... and all critical care pts) @ -[No] - Lab Data Result diagrams: 10/08/23 16:39 10/08/23 16:39 Lab Results 10/08/23 10/08/23 Range/Units 16:39 16:39 WBC 5.0 (3.8-10.6) k/uL RBC 4.54 (4.30-5.90) m/uL Hgb 13.0 (13.0-17.5) gm/dL Hct 39.1 (39.0-53.0) % MCV 86.3 (80.0-100.0) fL MCH 28.7 (25.0-35.0) pg MCHC 33.3 (31.0-37.0) g/dL RDW 13.9 (11.5-15.5) % Plt Count 203 (150-450) k/uL MPV 7.8 Neutrophils % 55 % Lymphocytes % 31 % Monocytes % 8 % Eosinophils % 2 % Basophils % 1 % Neutrophils # 2.7 (1.3-7.7) k/uL Lymphocytes # 1.5 (1.0-4.8) k/uL Monocytes # 0.4 (0-1.0) k/uL Eosinophils # 0.1 (0-0.7) k/uL Basophils # 0.1 (0-0.2) k/uL Sodium 138 (137-145) mmol/L Potassium 4.3 (3.5-5.1) mmol/L Chloride 102 (98-107) mmol/L Carbon Dioxide 25 (22-30) mmol/L Anion Gap 11 mmol/L BUN 35 H (9-20) mg/dL Creatinine 1.76 H (0.66-1.25) mg/dL Est GFR (CKD-EPI)AfAm 41 (>60 ml/min/1.73 sqM) Est GFR (CKD-EPI)NonAf 36 (>60 ml/min/1.73 sqM) Glucose 161 H (74-99) mg/dL Calcium 9.0 (8.4-10.2) mg/dL Total Bilirubin 0.4 (0.2-1.3) mg/dL AST 36 (17-59) U/L ALT 30 (4-49) U/L Alkaline Phosphatase 168 H (38-126) U/L Total Protein 7.1 (6.3-8.2) g/dL Albumin 4.1 (3.5-5.0) g/dL Disposition Clinical Impression: Sinusitis Disposition: HOME SELF-CARE Condition: Good Instructions (If sedation given, give patient instructions): Sinusitis (ED), Acute Headache (ED) Additional Instructions: Follow-up with PCP. Report back to ER with any new or worsening symptoms. Prescriptions: Amoxic-Pot Clav 875-125Mg [Augmentin 875-125] 1 tab PO Q12HR 7 Days #14 tab Is patient prescribed a controlled substance at d/c from ED?: No Referrals: [facility],Clinic [Primary Care Provider] - 1-2 days Time of Disposition: 18:38
[2023-10-08 17:08] LABS: Basophils # (A) 0.1 k/uL (0-0.2); Basophils % (A) 1 %; Eosinophils # (A) 0.1 k/uL (0-0.7); Eosinophils % (A) 2 %; HCT 39.1 % (39.0-53.0); Lymphocytes # (A) 1.5 k/uL (1.0-4.8); Lymphocytes % (A) 31 %; MCH 28.7 pg (25.0-35.0); MCHC 33.3 g/dL (31.0-37.0); MCV 86.3 fL (80.0-100.0); Mean Platelet Volume 7.8; Monocytes # (A) 0.4 k/uL (0-1.0); Monocytes % (A) 8 %; Neutrophils # (A) 2.7 k/uL (1.3-7.7); Neutrophils % (A) 55 %; Platelet Count 203 k/uL (150-450); RBC 4.54 m/uL (4.30-5.90); RDW 13.9 % (11.5-15.5)
[2023-10-08 17:25] LABS: ALT 30 U/L (4-49); AST 36 U/L (17-59); African American GFR (CKD) 41 (>60 ml/min/1.73 sqM); Albumin 4.1 g/dL (3.5-5.0); Alkaline Phosphatase 168 U/L (38-126); Anion Gap 11 mmol/L; Blood Urea Nitrogen 35 mg/dL (9-20); Carbon Dioxide 25 mmol/L (22-30); Chloride 102 mmol/L (98-107); Glucose 161 mg/dL (74-99); Non-African American GFR(CKD) 36 (>60 ml/min/1.73 sqM); Potassium 4.3 mmol/L (3.5-5.1); Sodium 138 mmol/L (137-145); Total Bilirubin 0.4 mg/dL (0.2-1.3); Total Protein 7.1 g/dL (6.3-8.2)
--- NOTE | 2023-10-08 18:00 | CT ---
EXAMINATION TYPE: CT brain wo con DATE OF EXAM: 10/08/2023 COMPARISON: None HISTORY: migraine CT DLP: 1157.4 mGycm Automated exposure control for dose reduction was used. FINDINGS: The ventricles, basal cisterns and sulci over the convexities are within normal limits for the patien t's age and there is no mass effect or shift of midline structures. There is moderate diffuse decreased density in the white matter both cerebral hemispheres consistent with moderate chronic ischemic white matter demyelination. There is mild calcification the basal gang karishma. There is no acute intra or extra-axial hemorrhage The posterior fossa is normal. The intraorbital contents appear normal and symmetric. There is no air-fluid level in the right maxillary sinus indicating acute sinusitis. The mastoid air cells are well aerated. Frontal sinuses are markedly hypoplastic. IMPRESSION: 1. Age-appropriate atrophy. 2. Moderate chronic ischemic white matter demyelination. 3. No acute bleed or mass effect. 4. Acute sinusitis involving the right maxillary sinus. IMPRESSION:
[2023-10-08] MEDS ORDERED: AMOXIC-POT CLAV 875-125MG 1 EACH TAB PO STA (18:39)
[2023-10-08] MEDS ORDERED: ACETAMINOPHEN TAB 325 MG TAB PO STA (18:39)
[2023-10-08 22:48] VITALS: BP 140/70; PULSE 72
== END 2023-10-08 19:02 | disposition home or self-care (01) ==
LOC: EC 14:40
DX: J01.00 Acute maxillary sinusitis, unspecified (principal); E11.9 Type 2 diabetes mellitus without complications; I10 Essential (primary) hypertension; I25.2 Old myocardial infarction; F32.A Depression, unspecified; Z79.4 Long term (current) use of insulin; Z79.82 Long term (current) use of aspirin; Z79.84 Long term (current) use of oral hypoglycemic drugs; Z79.899 Other long term (current) drug therapy; Z87.891 Personal history of nicotine dependence; Z86.73 Personal history of transient ischemic attack (TIA), and cerebral infarction without residual deficits; Z88.2 Allergy status to sulfonamides
CPT/HCPCS: 36415; 70450; 80053; 85025; 99284

== ENCOUNTER 2023-12-06 08:20 | Inpatient (IN) | payer OTHER, MEDICARE ==
--- NOTE | 2023-12-06 08:39 | ED ---
General Adult HPI - General Chief complaint: Chest Pain Stated complaint: Chest pain Time Seen by Provider: 12/06/23 08:20 Source: patient, EMS, RN notes reviewed, old records reviewed Mode of arrival: EMS Limitations: no limitations - History of Present Illness Initial comments: This is an 83-year-old male with a past medical history significant for coronary artery disease with a stent and patient also has history of diabetes. Patient presents today because about 3:00 this morning started having chest pain and he states he took nitro and that did relieve his pain. Patient stated when he got an EMS he still was having some pain so they gave him another nitro and he did take 4 aspirin total today and he states now the pain is barely there at all. Patient had 102.6 fever on arrival. Patient denies any cough sore throat congestion. Patient has any nausea vomiting or diarrhea. Patient denies any abdominal pain. Patient has any back pain. - Related Data Home Medications Medication Instructions Recorded Confirmed Aspirin [[place] Aspirin EC] 81 mg PO DAILY 10/03/22 11/13/23 Atorvastatin Calcium [Lipitor] 80 mg PO HS 10/03/22 11/13/23 Carboxymethylcellulose Sodium 1 drop BOTH EYES QID 10/03/22 11/13/23 [Thera Tears] Finasteride [Proscar] 5 mg PO DAILY 10/03/22 11/13/23 Insulin Glargine,Hum.rec.anlog 35 units SQ DAILY 10/03/22 11/13/23 [Insulin Glargine Solostar] Magnesium Oxide 400 mg PO BID 10/03/22 11/13/23 Omeprazole [PriLOSEC] 20 mg PO DAILY 10/03/22 11/13/23 Sennosides/Docusate Sodium [Senna 1 tab PO DAILY PRN 10/03/22 11/13/23 Plus 8.6-50 mg Tablet] Tamsulosin HCl [Flomax] 0.4 mg PO BID 10/03/22 11/13/23 glipiZIDE [Glucotrol] 20 mg PO AC-BID 10/03/22 11/13/23 Nitroglycerin Sl Tabs [Nitrostat] 0.4 mg SL Q5M PRN 11/05/22 11/13/23 DULoxetine HCL [Cymbalta] 60 mg PO DAILY 08/30/23 11/13/23 Empagliflozin [Jardiance] 25 mg PO DAILY 08/30/23 11/13/23 Levothyroxine Sodium [Synthroid] 25 mcg PO DAILY 08/30/23 11/13/23 Mv-Min/Folic/K1/Lycopen/Lutein 1 tab PO DAILY 08/30/23 11/13/23 [Centrum Silver Men Tablet] Previous Rx's Medication Instructions Recorded Clopidogrel [Plavix] 75 mg PO DAILY #90 tab 10/07/22 Furosemide [Lasix] 40 mg PO DAILY #30 tablet 11/08/22 carvediloL [Coreg] 6.25 mg PO BID-W/MEALS #60 tab 11/08/22 Budesonide [Pulmicort] 1 mg INHALATION BID 30 Days #60 ml 09/11/23 Ipratropium-Albuterol Nebulize 3 ml INHALATION QID 30 Days #120 ml 09/11/23 [Duoneb 0.5 mg-3 mg/3 ml Soln] Losartan [Cozaar] 12.5 mg PO DAILY 30 Days #15 tab 09/11/23 predniSONE See Taper PO DIRECTED 12 Days 09/11/23 #30 tab Allergies Allergy/AdvReac Type Severity Reaction Status Date / Time Sulfa (Sulfonamide Allergy Unknown Verified 12/06/23 08:29 Antibiotics) Review of Systems ROS Statement: Those systems with pertinent positive or pertinent negative responses have been documented in the HPI. ROS Other: All systems not noted in ROS Statement are negative. Past Medical History Past Medical History: CVA/TIA, Diabetes Mellitus, Hypertension, Myocardial Infarction (NV) Additional Past Medical History / Comment(s): Stroke in December of 2021 Last Myocardial Infarction Date:: 10/03/22 History of Any Multi-Drug Resistant Organisms: None Reported Past Surgical History: Orthopedic Surgery Additional Past Surgical History / Comment(s): Urethral surgery-unsure of date Past Anesthesia/Blood Transfusion Reactions: No Reported Reaction Date of Last Stent Placement:: 10/03/2022 Past Psychological History: No Psychological Hx Reported, Depression, PTSD Smoking Status: Former smoker - Past Family History Father Family Medical History: Hypertension General Exam - General Exam Comments Initial Comments: GENERAL: Patient is well-developed and well-nourished. Patient is nontoxic and well-hydr ated and is in mild distress. ENT: Neck is soft and supple. No significant lymphadenopathy is noted. Oropharynx is clear. Moist mucous membranes. Neck has full range of motion without eliciting any pain. EYES: The sclera were anicteric and conjunctiva were pink and moist. Extraocular movements were intact and pupils were equal round and reactive to light. Eyelids were unremarkable. PULMONARY: Unlabored respirations. Good breath sounds bilaterally. No audible rales rhonchi or wheezing was noted. CARDIOVASCULAR: There is a regular rate and rhythm without any murmurs gallops or rubs. ABDOMEN: Soft and nontender with normal bowel sounds. SKIN: Skin is clear with no lesions or rashes and otherwise unremarkable. NEUROLOGIC: Patient is alert and oriented x3. Cranial nerves II through XII are grossly intact. Motor and sensory are also intact. Normal speech, volume and content. Symmetrical smile. MUSCULOSKELETAL: Normal extremities with adequate strength and full range of motion. LYMPHATICS: No significant lymphadenopathy is noted PSYCHIATRIC: Normal psychiatric evaluation. Limitations: no limitations Course Vital Signs 12/06/23 12/06/23 12/06/23 08:25 09:00 09:38 Temperature 102.6 F H 99 F Pulse Rate 84 73 67 Respiratory 20 18 18 Rate Blood Pressure 98/61 101/61 O2 Sat by Pulse 100 97 97 Oximetry Medical Decision Making - Medical Decision Making EKG is interpreted by myself read EKG shows a sinus rhythm at 84 bpm OR interval is 253 QRS is 148 QT interval 385 QTc is 427. Patient EKG shows no ST segment ovation or depression. Was pt. sent in by a medical professional or institution (, PA, AIR DRIER MACHINE OPERATOR, urgent care, hospital, or prison...) When possible be specific @ -No Did you speak to anyone other than the patient for history (EMS, parent, family, police, friend...)? What history was obtained from this source @ -EMS gave quite a bit of the history Did you review nursing and triage notes (agree or disagree)? Why? @ -I reviewed and agree with nursing and triage notes Were old charts reviewed (outside hosp., previous admission, EMS record, old EKG, old radiological studies, urgent care reports/EKG's, prison records)? Report findings @ -I reviewed prior charts prior lab work and prior radiological studies. Differential Diagnosis (chest pain, altered mental status, abdominal pain women, abdominal pain men, vaginal bleeding, weakness, fever, dyspnea, syncope, headache, dizziness, GI bleed, back pain, seizure, CVA, palpatations, mental health, musculoskeletal)? @ -Differential Chest Pain: Stable Angina, Unstable Angina, STEMI, NSTEMI Aortic Dissection, Pneumothorax, Musculoskeletal, Esophageal Spasm GERD, Cholecystitis, Pancreatitis, Zoster, this is not meant to be an all-inclusive list. Differential Fever: Pneumonia, viral URI, endocarditis, myocarditis, pericarditis, otitis, sinusitis, peritonsillar Abscess, retropharyngeal Abscess, epiglottitis, peritonitis, appendicitis, [place] cystitis, diverticulitis, hepatitis, colitis, UTI, PID, TOA, pyelonephritis, prostatitis, epididymitis, meningitis, encephalitis, pulmonary embolism, CVA, thyroid storm, pancreatitis, adrenal crisis, cavernous sinus thrombosis, this is not meant to be an all-inclusive list. EKG interpreted by me (3pts min.). @ -As above X-rays interpreted by me (1pt min.). @ -Chest x-ray shows a large pleural effusion on the right CT interpreted by me (1pt min.). @ -None done U/S interpreted by me (1pt. min.). @ -None done What testing was considered but not performed or refused? (CT, X-rays, U/S, labs)? Why? @ -None What meds were considered but not given or refused? Why? @ -None Did you discuss the management of the patient with other professionals (professionals i.e. , PA, AIR DRIER MACHINE OPERATOR, lab, RT, psych nurse, social media specialist, wire annealer, teacher, supervisor dog license officer, telehealth case manager)? Give summary @ -I spoke with sound physicians they agreed to admit the patient Was smoking cessation discussed for >3mins.? @ -No Was critical care preformed (if so, how long)? @ -No Were there social determinants of health that impacted care today? How? (Homelessness, low income, unemployed, alcoholism, drug addiction, tr ansportation, low edu. Level, literacy, decrease access to med. care, longterm, rehab)? @ -No Was there de-escalation of care discussed even if they declined (Discuss DNR or withdrawal of care, Hospice)? DNR status @ -No What co-morbidities impacted this encounter? (DM, HTN, Smoking, COPD, CAD, Cancer, CVA, ARF, Chemo, Hep., AIDS, mental health diagnosis, sleep apnea, morbid obesity)? @ -None Was patient admitted / discharged? Hospital course, mention meds given and route, prescriptions, significant lab abnormalities, going to OR and other pertinent info. @ -Patient was given Nitropaste in the emergency department he was chest pain- free shortly thereafter. Patient was also given Tylenol Motrin for the fever his temperature did come down. There is no source for the fever at this time awaiting upon urine analysis but the patient will be admitted to [facility] and I will consult cardiology Undiagnosed new problem with uncertain prognosis? @ -No Drug Therapy requiring intensive monitoring for toxicity (Heparin, Nitro, Insulin, Cardizem)? @ -No Were any procedures done? @ -No Diagnosis/symptom? @ -Chest pain Acute, or Chronic, or Acute on Chronic? @ -Acute Uncomplicated (without systemic symptoms) or Complicated (systemic symptoms)? @ -Complicated Side effects of treatment? @ -No Exacerbation, Progression, or Severe Exacerbation? @ -No Poses a threat to life or bodily function? How? (Chest pain, [place], NV, pneumonia, PE, COPD, DKA, ARF, appy, cholecystitis, CVA, Diverticulitis, Homicidal, Suicidal, threat to staff... and all critical care pts) @ -Yes this can lead to an NV and endorgan dysfunction Diagnosis/symptom? @ -Fever of unknown origin Acute, or Chronic, or Acute on Chronic? @ -Acute Uncomplicated (without systemic symptoms) or Complicated (systemic symptoms)? @ -Complicated Side effects of treatment? @ -None Exacerbation, Progression, or Severe Exacerbation] @ -No Poses a threat to life or bodily function? @ -No - Lab Data Result diagrams: 12/06/23 08:31 12/06/23 08:31 Lab Results 12/06/23 12/06/23 12/06/23 Range/Units 08:31 08:31 08:31 WBC 5.1 (3.8-10.6) k/uL RBC 4.65 (4.30-5.90) m/uL Hgb 13.2 (13.0-17.5) gm/dL Hct 40.0 (39.0-53.0) % MCV 86.1 (80.0-100.0) fL MCH 28.3 (25.0-35.0) pg MCHC 32.9 (31.0-37.0) g/dL RDW 14.2 (11.5-15.5) % Plt Count 215 (150-450) k/uL MPV 7.6 Neutrophils % 77 % Lymphocytes % 10 % Monocytes % 6 % Eosinophils % 3 % Basophils % 1 % Neutrophils # 4.0 (1.3-7.7) k/uL Lymphocytes # 0.5 L (1.0-4.8) k/uL Monocytes # 0.3 (0-1.0) k/uL Eosinophils # 0.2 (0-0.7) k/uL Basophils # 0.1 (0-0.2) k/uL PT 11.3 (10.0-12.5) sec INR 1.0 (<1.2) APTT 26.1 (22.0-30.0) sec Sodium 130 L (137-145) mmol/L Potassium 5.1 (3.5-5.1) mmol/L Chloride 102 (98-107) mmol/L Carbon Dioxide 18 L (22-30) mmol/L Anion Gap 10 mmol/L BUN 34 H (9-20) mg/dL Creatinine 1.80 H (0.66-1.25) mg/dL Est GFR (CKD-EPI)AfAm 40 (>60 ml/min/1.73 sqM) Est GFR (CKD-EPI)NonAf 35 (>60 ml/min/1.73 sqM) Glucose 184 H (74-99) mg/dL Calcium 8.2 L (8.4-10.2) mg/dL Magnesium 2.2 (1.6-2.3) mg/dL Total Bilirubin 1.1 (0.2-1.3) mg/dL AST 40 (17-59) U/L ALT 17 (4-49) U/L Alkaline Phosphatase 167 H (38-126) U/L Troponin I (0.000-0.034) ng/mL Total Protein 6.7 (6.3-8.2) g/dL Albumin 3.5 (3.5-5.0) g/dL Influenza Type A (PCR) (Not Detectd) Influenza Type B (PCR) (Not Detectd) RSV (PCR) (Not Detectd) SARS-CoV-2 (PCR) (Not Detectd) 12/06/23 12/06/23 Range/Units 08:31 08:31 WBC (3.8-10.6) k/uL RBC (4.30-5.90) m/uL Hgb (13.0-17.5) gm/dL Hct (39.0-53.0) % MCV (80.0-100.0) fL MCH (25.0-35.0) pg MCHC (31.0-37.0) g/dL RDW (11.5-15.5) % Plt Count (150-450) k/uL MPV Neutrophils % % Lymphocytes % % Monocytes % % Eosinophils % % Basophils % % Neutrophils # (1.3-7.7) k/uL Lymphocytes # (1.0-4.8) k/uL Monocytes # (0-1.0) k/uL Eosinophils # (0-0.7) k/uL Basophils # (0-0.2) k/uL PT (10.0-12.5) sec INR (<1.2) APTT (22.0-30.0) sec Sodium (137-145) mmol/L Potassium (3.5-5.1) mmol/L Chloride (98-107) mmol/L Carbon Dioxide (22-30) mmol/L Anion Gap mmol/L BUN (9-20) mg/dL Creatinine (0.66-1.25) mg/dL Est GFR (CKD-EPI)AfAm (>60 ml/min/1.73 sqM) Est GFR (CKD-EPI)NonAf (>60 ml/min/1.73 sqM) Glucose (74-99) mg/dL Calcium (8.4-10.2) mg/dL Magnesium (1.6-2.3) mg/dL Total Bilirubin (0.2-1.3) mg/dL AST (17-59) U/L ALT (4-49) U/L Alkaline Phosphatase (38-126) U/L Troponin I 0.028 (0.000-0.034) ng/mL Total Protein (6.3-8.2) g/dL Albumin (3.5-5.0) g/dL Influenza Type A (PCR) Not Detected (Not Detectd) Influenza Type B (PCR) Not Detected (Not Detectd) RSV (PCR) Not Detected (Not Detectd) SARS-CoV-2 (PCR) Not Detected (Not Detectd) Disposition Clinical Impression: Chest pain, Fever and chills Disposition: ADMITTED IP TO THIS HOSP Referrals: [facility],Clinic [Primary Care Provider] - 1-2 days Time of Disposition: 10:03
[2023-12-06] MEDS: SODIUM CHLORIDE 0.9% 1,000 ML IV ONE (08:49)
[2023-12-06] MEDS: ACETAMINOPHEN TAB 500 MG TAB PO STA (08:51)
[2023-12-06] MEDS: NITROGLYCERIN OINT 1 INCH/GM PACKET TOPICAL STA (08:52)
[2023-12-06] MEDS: IBUPROFEN 600 MG TAB PO STA (08:52)
[2023-12-06 09:04] LABS: Basophils # (A) 0.1 k/uL (0-0.2); Basophils % (A) 1 %; Eosinophils # (A) 0.2 k/uL (0-0.7); Eosinophils % (A) 3 %; HGB 13.2 gm/dL (13.0-17.5); Lymphocytes # (A) 0.5 k/uL (1.0-4.8); Lymphocytes % (A) 10 %; MCH 28.3 pg (25.0-35.0); MCHC 32.9 g/dL (31.0-37.0); MCV 86.1 fL (80.0-100.0); Mean Platelet Volume 7.6; Monocytes # (A) 0.3 k/uL (0-1.0); Monocytes % (A) 6 %; Neutrophils % (A) 77 %; Platelet Count 215 k/uL (150-450); RBC 4.65 m/uL (4.30-5.90); RDW 14.2 % (11.5-15.5); WBC 5.1 k/uL (3.8-10.6)
--- NOTE | 2023-12-06 09:08 | XR ---
EXAMINATION TYPE: XR chest 2V DATE OF EXAM: 12/06/2023 8:48 AM CLINICAL INDICATION:Male, 83 years old with history of Chest Pain; [facility] COMPARISON: Chest radiographs from 09/09/2023. TECHNIQUE: XR chest 2V Frontal and lateral views of the chest. FINDINGS: Lungs/Pleura: New right blunting of the calcific angle. There is no evidence of pleural effusion, foc al consolidation, or pneumothorax. Pulmonary vascularity: Pulmonary vascular congestion. Heart/mediastinum: Cardiomediastinal silhouette is prominent in size. Musculoskeletal: No acute osseous pathology. IMPRESSION: Small right pleural effusion and scattered pulmonary vascular congestion correlate with serum BNP.
[2023-12-06 09:19] LABS: ALT 17 U/L (4-49); AST 40 U/L (17-59); African American GFR (CKD) 40 (>60 ml/min/1.73 sqM); Albumin 3.5 g/dL (3.5-5.0); Alkaline Phosphatase 167 U/L (38-126); Anion Gap 10 mmol/L; Blood Urea Nitrogen 34 mg/dL (9-20); Calcium 8.2 mg/dL (8.4-10.2); Carbon Dioxide 18 mmol/L (22-30); Chloride 102 mmol/L (98-107); Glucose 184 mg/dL (74-99); Magnesium 2.2 mg/dL (1.6-2.3); Non-African American GFR(CKD) 35 (>60 ml/min/1.73 sqM); Sodium 130 mmol/L (137-145); Total Bilirubin 1.1 mg/dL (0.2-1.3); Total Protein 6.7 g/dL (6.3-8.2)
[2023-12-06 09:20] LABS: Potassium 5.1 mmol/L (3.5-5.1)
[2023-12-06 09:23] LABS: Partial Thromboplastin Time 26.1 sec (22.0-30.0); Prothrombin Time 11.3 sec (10.0-12.5)
[2023-12-06] MEDS ORDERED: DEXTROSE 50% SYRINGE 50 ML IVP PRN ×2 (11:06)
[2023-12-06 11:24] LABS: Glucose,Whole Blood 167 mg/dL (70-110)
--- NOTE | 2023-12-06 11:25 | P.HPIM ---
History of Present Illness H&P Date: 12/06/23 83-year-old male with PMH of CAD, history of CVA, diabetes mellitus, chronic kidney disease, hypertension, BPH, hypothyroidism presents the ED for chest pain. Chest pain woke him up at 3AM. Chest pain mid sternal, described as rumbling, radiating to both arms. Associated symptoms include diaphoresis. Chest pain was relieved by sublingual nitroglycerin. Of note, also reports fevers as high as 101.3F over the past 3 days. No cough, rash, urinary or bowel symptoms. In the ED, he underwent extensive evaluation. BP 98/61, HR 84, RR 20, T 102.6F, 100% on 1 LNC. CBC, coag panel and CMP was done significant for lymphocyte count of 0.5, sodium 1:30, bicarb 18, BUN 34, creatinine 1.8, glucose 184, c alcium 8.2, alk phos 167. Magnesium 2.2. Troponin 0.028. Flu, RSV, COVID-19 negative. EKG showed sinus rhythm with left bundle branch block. Chest x-ray showed small right pleural effusion and pulmonary vascular congestion. Patient is admitted for chest pain, rule out acute coronary syndrome and cardiology consultation. Workup from previous admission was reviewed. Cardiac cath 09/04/23 showed 70-80% distal left main, 100% ostial LAD with collateral, 80-90% ostial PDA, 80% proximal OM1. He has been evaluated by CT surgery in the past deemed to be poor surgical candidate for revascularization. Echocardiogram 09/01/23 showed EF 35-40% with anteroseptal, anterior wall hypokinesia, mild aortic stenosis. General: non toxic, no distress, appears at stated age Derm: warm, dry Head: atraumatic, normocephalic, symmetric Eyes: EOMI, no lid lag, anicteric sclera Mouth: no lip lesion, mucus membranes moist Cardiovascular: S1S2 reg, no murmur Lungs: CTA bilateral, no rhonchi, no rales , no accessory muscle use Abdominal: soft, nontender to palpation, no guarding, no appreciable organomega ly Ext: no gross muscle atrophy, no edema, no contractures Neuro: no focal neuro deficits Psych: Alert, oriented, appropriate affect Based on my assessment of this patient, this patient meets a high complexity level of care. Patient has an acute diagnosis of chest pain with history of CAD that poses a threat to life or bodily function. Chest pain: Trend Troponin/EKG to rule out ACS. Previous echo and cardiac cath as above in 09/12. ASA 81 mg PO QD. Lipitor 80 mg PO QHS. Plavix 75 mg PO QD. Coreg 6.25 mg PO BID. Telemetry monitoring. Cardiology consult. Fever of unknown origin: Flu, RSV, COVID negative. He does not meet sepsis criteria. Monitor fever profile. No indications for antibiotics. Systolic CHF exacerbation with right pleural effusion and pulmonary vascular congestion: Start Lasix 40 mg IV BID. Strict intake and outtake. Daily weights. Diabetes mellitus with hyperglycemia: Levemir 35 units QD. ISS. Accuchecks ACHS. Hypoglycemic precautions. Hyponatremia: Hypervolemic. Hopeful improvement with diuresis. Chronic conditions: history of CVA, chronic kidney disease, hypertension, BPH, hypothyroidism CODE STATUS: FULL CODE. DVT Prophylaxis: Heparin SQ. GI Prophylaxis: Protonix PO Designated medical POA if patient is not able to make medical decisions for themselves: Daughter I have reviewed the following legal nurse consultant notes: ED note. I have reviewed the results of the following tests: As above. I have ordered the following tests: As above. I have discussed the care of this patient with the following independent historian: I have independently interpreted the following test below: CXR I have discussed the management of this patient with the following physician: Past Medical History Past Medical History: CVA/TIA, Diabetes Mellitus, Hypertension, Myocardial Infarction (NV) Additional Past Medical History / Comment(s): Stroke in December of 2021 Last Myocardial Infarction Date:: 10/03/22 History of Any Multi-Drug Resistant Organisms: None Reported Past Surgical History: Orthopedic Surgery Additional Past Surgical History / Comment(s): Urethral surgery-unsure of date Past Anesthesia/Blood Transfusion Reactions: No Reported Reaction Date of Last Stent Placement:: 10/03/2022 Past Psychological History: No Psychological Hx Reported, Depression, PTSD Smoking Status: Former smoker - Past Family History Father Family Medical History: Hypertension Medications and Allergies Home Medications Medication Instructions Recorded Confirmed Type Aspirin [[place] Aspirin EC] 81 mg PO DAILY 10/03/22 12/06/23 History Atorvastatin Calcium [Lipitor] 80 mg PO HS 10/03/22 12/06/23 History Carboxymethylcellulose Sodium 1 drop BOTH EYES QID 10/03/22 12/06/23 History [Thera Tears] Finasteride [Proscar] 5 mg PO DAILY 10/03/22 12/06/23 History Insulin Glargine,Hum.rec.anlog 35 units SQ DAILY 10/03/22 12/06/23 History [Insulin Glargine Solostar] Magnesium Oxide 400 mg PO BID 10/03/22 12/06/23 History Omeprazole [PriLOSEC] 20 mg PO DAILY 10/03/22 12/06/23 History Sennosides/Docusate Sodium [Senna 1 tab PO DAILY PRN 10/03/22 12/06/23 History Plus 8.6-50 mg Tablet] Tamsulosin HCl [Flomax] 0.4 mg PO BID 10/03/22 12/06/23 History glipiZIDE [Glucotrol] 20 mg PO AC-BID 10/03/22 12/06/23 History Clopidogrel [Plavix] 75 mg PO DAILY #90 tab 10/07/22 12/06/23 Rx Nitroglycerin Sl Tabs [Nitrostat] 0.4 mg SL Q5M PRN 11/05/22 12/06/23 History Furosemide [Lasix] 40 mg PO DAILY #30 tablet 11/08/22 12/06/23 Rx carvediloL [Coreg] 6.25 mg PO BID-W/MEALS #60 tab 11/08/22 12/06/23 Rx DULoxetine HCL [Cymbalta] 60 mg PO DAILY 08/30/23 12/06/23 History Empagliflozin [Jardiance] 25 mg PO DAILY 08/30/23 12/06/23 History Levothyroxine Sodium [Synthroid] 25 mcg PO DAILY 08/30/23 12/06/23 History Mv-Min/Folic/K1/Lycopen/Lutein 1 tab PO DAILY 08/30/23 12/06/23 History [Centrum Silver Men Tablet] Losartan [Cozaar] 12.5 mg PO DAILY 30 Days #15 tab 09/11/23 12/06/23 Rx Budesonide [Pulmicort] 1 mg INHALATION RT-BID 12/06/23 12/06/23 History Ipratropium-Albuterol Nebulize 3 ml INHALATION RT-QID 12/06/23 12/06/23 History [Duoneb 0.5 mg-3 mg/3 ml Soln] Allergies Allergy/AdvReac Type Severity Reaction Status Date / Time Sulfa (Sulfonamide Allergy lips swell Verified 12/06/23 10:40 Antibiotics) Physical Exam Vitals: Vital Signs Temp Pulse Resp BP Pulse Ox 12/06/23 09:38 99 F 67 18 97 12/06/23 09:00 73 18 101/61 97 12/06/23 08:25 102.6 F H 84 20 98/61 100 Intake and Output 12/05/23 12/06/23 12/06/23 22:59 06:59 14:59 Other: Weight 77.111 kg Results CBC & Chem 7: 12/06/23 08:31 12/06/23 08:31 Labs: Abnormal Lab Results - Last 24 Hours (Table) 12/06/23 12/06/23 Range/Units 08:31 08:31 Lymphocytes # 0.5 L (1.0-4.8) k/uL Sodium 130 L (137-145) mmol/L Carbon Dioxide 18 L (22-30) mmol/L BUN 34 H (9-20) mg/dL Creatinine 1.80 H (0.66-1.25) mg/dL Glucose 184 H (74-99) mg/dL Calcium 8.2 L (8.4-10.2) mg/dL Alkaline Phosphatase 167 H (38-126) U/L
[2023-12-06] MEDS: FUROSEMIDE 10 MG/ML 4 ML VIAL IV SCH (12:21)
[2023-12-06] MEDS: INSULIN ASPART (NovoLOG) 100 UNIT/ML VIAL SQ SCH (12:21)
[2023-12-06] MEDS: NITROGLYCERIN OINT 1 INCH/GM PACKET TOPICAL SCH (12:22)
[2023-12-06 12:30] LABS: Appearance,Urine Clear (Clear); Bilirubin,Urine Negative (Negative); Blood,Urine Negative (Negative); Color,Urine Light Yellow; Glucose,Urine (UA) 4+ (Negative); Ketones,Urine Negative (Negative); Leukocyte Esterase,Urine Negative (Negative); Nitrite,Urine Negative (Negative); Protein,Urine Negative (Negative); Specific Gravity,Urine 1.019 (1.001-1.035); Urobilinogen,Urine <2.0 mg/dL (<2.0)
--- NOTE | 2023-12-06 13:51 | P.PN ---
Subjective Progress Note Date: 12/06/23 History of Present Illness: The patient is an 83-year-old male, followed by Dr. Nelson who presents with sy mptoms of chest discomfort. He has a known history of CAD underwent stenting of the LAD in September [address] Remy and subsequently was readmitted about a week after with acute thrombosis and underwent angioplasty and thrombectomy. He underwent repeat cardiac catheterization in August and was found to have totally occluded LAD with distal left main disease but was felt to be a poor candidate for any surgical intervention. He presents with symptoms of chest discomfort and dyspnea at rest yesterday, he is pain-free at the time of my evaluation. He usually has exertional angina pectoris with dyspnea on exertion. His activity is limited. He has evidence of cardiomyopathy with segmental wall motion abnormality consistent with his initial presentation with myocardial infarction. He has no significant PND, orthopnea or peripheral edema. He denies any palpitations, dizziness or syncope. His colitis factors are positive for diabetes hyperlipidemia. Medications: Aspirin, Plavix 75 mg daily, Lipitor 80 mg daily, Jardiance 25 mg daily, insulin, Prilosec, Coreg 6.25 mg twice a day, losartan 12.5 mg daily, Synthroid, furosemide 40 mg daily, Pulmicort, Proscar, Cymbalta, Flomax Review of Systems: Respiratory: He has chronic dyspnea on exertion but no recent wheezing or cough GI: No nausea or vomiting . No history of peptic ulcer disease. No recent GI bleed. : No hematuria or dysuria. Nervous System: No stroke or seizure. Physical Examination: 83-year-old male, alert oriented no apparent distress,Blood pressure 101/60, Heart rate 67 Head: Normocephalic. Eyes: Sclerae nonicteric. Neck: Good carotid upstroke, no bruit, no jugular venous distention. Lungs: Clear to auscultation. Heart: Regular rate and rhythm, S1-S2, no S3, no rub. Systolic ejection murmur. Abdomen: Soft nontender, positive bowel sounds no organomegaly. Extremities: No edema, intact distal pulses. Labs: Hemoglobin 13.2, BUN 34, creatinine 1.8, troponin 0.028, 0.032, 0.037. Chest x- ray with small pleural effusion EKG: Sinus mechanism with left bundle branch block and first-degree AV block Impression: 1. Unstable angina in a patient with known history of severe CAD, felt to be not a candidate for any surgical intervention with chronically occluded ostial LAD 2. Ischemic cardiomyopathy 3. Diabetes 4. Chronic kidney disease Plan: 1. Continue present treatment 2. Start Ranexa 3. Depending on his progress further recommendation will be made regarding the need to undergo repeat angiography 4. The prognosis is guarded 5. Thank you for this consult we will follow with you Objective - Vital Signs Vital signs: Vital Signs Temp 99 F 12/06/23 09:38 Pulse 67 12/06/23 09:38 Resp 18 12/06/23 09:38 BP 101/61 12/06/23 09:00 Pulse Ox 97 12/06/23 09:38 FiO2 Intake & Output 12/05/23 12/06/23 12/06/23 18:59 06:59 18:59 Output Total 125 Balance -125 Weight 77.111 kg Output: Urine 125 - Labs CBC & Chem 7: 12/06/23 08:31 12/06/23 08:31 Labs: Abnormal Lab Results - Last 24 Hours (Table) 12/06/23 12/06/23 12/06/23 Range/Units 08:31 08:31 11:22 Lymphocytes # 0.5 L (1.0-4.8) k/uL Sodium 130 L (137-145) mmol/L Carbon Dioxide 18 L (22-30) mmol/L BUN 34 H (9-20) mg/dL Creatinine 1.80 H (0.66-1.25) mg/dL Glucose 184 H (74-99) mg/dL POC Glucose (mg/dL) 167 H (70-110) mg/dL Calcium 8.2 L (8.4-10.2) mg/dL Alkaline Phosphatase 167 H (38-126) U/L Urine Glucose (UA) (Negative) 12/06/23 Range/Units 11:48 Lymphocytes # (1.0-4.8) k/uL Sodium (137-145) mmol/L Carbon Dioxide (22-30) mmol/L BUN (9-20) mg/dL Creatinine (0.66-1.25) mg/dL Glucose (74-99) mg/dL POC Glucose (mg/dL) (70-110) mg/dL Calcium (8.4-10.2) mg/dL Alkaline Phosphatase (38-126) U/L Urine Glucose (UA) 4+ H (Negative)
[2023-12-06] MEDS: RANOLAZINE 500 MG TAB.ER.12H PO SCH (16:08)
[2023-12-06] MEDS: ISOSORBIDE MONONITRATE ER 30 MG TAB.ER.24H PO SCH (16:08)
[2023-12-06 16:36] LABS: Glucose,Whole Blood 244 mg/dL (70-110)
[2023-12-06] MEDS: carvediloL 6.25 MG TAB PO SCH (17:07)
[2023-12-06] MEDS: NITROGLYCERIN SL TABS 0.4 MG TAB SUBLINGUAL PRN (18:40)
[2023-12-06] MEDS ORDERED: HEPARIN SODIUM 1,000 UN/ML (10ML VL) IV PRN (18:58)
[2023-12-06] MEDS: HEPARIN SODIUM 1,000 UN/ML (10ML VL) IV ONE (19:11)
[2023-12-06] MEDS: HEPARIN SOD,PORK IN 0.45% NACL 25,000 UNIT in 0.45% NACL 1 250ML.BAG IV SCH (19:12)
[2023-12-06 19:35] LABS: Basophils % (A) 1 %; Eosinophils # (A) 0.2 k/uL (0-0.7); Eosinophils % (A) 4 %; HCT 42.7 % (39.0-53.0); HGB 13.5 gm/dL (13.0-17.5); Lymphocytes # (A) 0.4 k/uL (1.0-4.8); Lymphocytes % (A) 8 %; MCH 28.2 pg (25.0-35.0); MCHC 31.5 g/dL (31.0-37.0); MCV 89.5 fL (80.0-100.0); Mean Platelet Volume 7.4; Monocytes # (A) 0.2 k/uL (0-1.0); Monocytes % (A) 4 %; Neutrophils # (A) 4.4 k/uL (1.3-7.7); Neutrophils % (A) 83 %; Platelet Count 203 k/uL (150-450); RBC 4.77 m/uL (4.30-5.90); RDW 14.5 % (11.5-15.5); WBC 5.3 k/uL (3.8-10.6)
[2023-12-06 20:01] LABS: Prothrombin Time 11.4 sec (10.0-12.5)
[2023-12-06] MEDS: ATORVASTATIN 80 MG TAB PO SCH (20:09)
[2023-12-06] MEDS: TAMSULOSIN 0.4 MG CAP.ER.24H PO SCH (20:09)
[2023-12-06 20:36] LABS: Partial Thromboplastin Time 195.4 sec (22.0-30.0)
[2023-12-06] MEDS: BUDESONIDE 1 MG/2 ML NEBU INHALATION SCH (20:39)
[2023-12-06] MEDS: IPRATROPIUM-ALBUTEROL 3 ML NEB INHALATION PRN (20:39)
[2023-12-06] MEDS ORDERED: HEPARIN SODIUM,PORCINE 5,000 UNIT/ML 1 ML VIAL SQ SCH (21:00)
[2023-12-06 21:05] LABS: Glucose,Whole Blood 213 mg/dL (70-110)
[2023-12-06] MEDS: ACETAMINOPHEN TAB 325 MG TAB PO PRN (23:15)
[2023-12-07 06:37] LABS: Glucose,Whole Blood 197 mg/dL (70-110)
[2023-12-07] MEDS: PANTOPRAZOLE 40 MG TABLET PO SCH (06:47)
[2023-12-07] MEDS: LEVOTHYROXINE 25 MCG TAB PO SCH (06:47)
[2023-12-07 06:57] LABS: Basophils % (A) 1 %; Eosinophils # (A) 0.1 k/uL (0-0.7); Eosinophils % (A) 2 %; HCT 36.6 % (39.0-53.0); HGB 12.1 gm/dL (13.0-17.5); Lymphocytes # (A) 0.4 k/uL (1.0-4.8); Lymphocytes % (A) 13 %; MCH 28.8 pg (25.0-35.0); MCHC 33.1 g/dL (31.0-37.0); MCV 87.1 fL (80.0-100.0); Mean Platelet Volume 8.2; Monocytes # (A) 0.2 k/uL (0-1.0); Monocytes % (A) 5 %; Neutrophils # (A) 2.6 k/uL (1.3-7.7); Neutrophils % (A) 76 %; Platelet Count 173 k/uL (150-450); RDW 14.4 % (11.5-15.5); WBC 3.5 k/uL (3.8-10.6)
[2023-12-07 07:05] LABS: INR 1.1 (<1.2); Prothrombin Time 11.7 sec (10.0-12.5)
[2023-12-07 07:21] LABS: African American GFR (CKD) 33 (>60 ml/min/1.73 sqM); Anion Gap 11 mmol/L; Blood Urea Nitrogen 43 mg/dL (9-20); Calcium 7.9 mg/dL (8.4-10.2); Carbon Dioxide 17 mmol/L (22-30); Chloride 102 mmol/L (98-107); Glucose 189 mg/dL (74-99); Non-African American GFR(CKD) 28 (>60 ml/min/1.73 sqM); Sodium 130 mmol/L (137-145)
[2023-12-07] MEDS: LOSARTAN 25 MG TAB PO SCH (08:42)
[2023-12-07] MEDS: ASPIRIN 81 MG PO SCH (08:42)
[2023-12-07] MEDS: CLOPIDOGREL 75 MG TAB PO SCH (08:43)
[2023-12-07] MEDS: DULoxetine HCL 60 MG CAPSULE.DR PO SCH (08:43)
[2023-12-07] MEDS ORDERED: FUROSEMIDE 40 MG TAB PO SCH (09:00)
[2023-12-07] MEDS ORDERED: ASPIRIN 325 MG TAB PO SCH (09:00)
--- NOTE | 2023-12-07 10:11 | US ---
EXAMINATION TYPE: US kidneys/renal and bladder DATE OF EXAM: 12/07/2023 COMPARISON: 09/01/2023. CLINICAL INDICATION: Male, 83 years old with history of ZOEY on CKD; zoey EXAM MEASUREMENTS: Right Kidney: 10.4 x 5.0 x 4.4 cm Left Kidney: 10.2 x 5.2 x 3.9 cm Right Kidney: Lobulated hypoechoic area lower pole 2.3 cm. Left Kidney: No hydronephrosis or masses seen Bladder: anechoic prominent prostate Bilateral Jets seen: Yes The prostate gland is enlarged for size. There is no evidence for hydronephrosis at this point in time. No nephrolithiasis is seen. No tracy s are identified. The urinary bladder is anechoic. Bilateral ureteral jets are seen. IMPRESSION: 1. No evidence for obstructive uropathy. 2. Prostatomegaly, correlate with serum PSA.
[2023-12-07 11:20] LABS: Glucose,Whole Blood 193 mg/dL (70-110)
--- NOTE | 2023-12-07 11:48 | P.PN ---
Subjective HISTORY OF PRESENT ILLNESS: The patient is an 83-year-old male, followed by Dr. Nelson who presents with symptoms of chest discomfort. He has a known history of CAD underwent stenting of the LAD in September [address] Remy and subsequently was readmitted about a week after with acute thrombosis and underwent angioplasty and thrombectomy. He underwent repeat cardiac catheterization in August and was found to have totally occluded LAD with distal left main disease but was felt to be a poor candidate for any surgical intervention. He presents with symptoms of chest discomfort and dyspnea at rest yesterday, he is pain-free at the time of my evaluation. He usually has exertional angina pectoris with dyspnea on exertion. His activity is limited. He has evidence of cardiomyopathy with segmental wall motion abnormality consistent with his initial presentation with myocardial infarction. He has no significant PND, orthopnea or peripheral edema. He denies any palpitations, dizziness or syncope. His colitis factors are positive for diabetes hyperlipidemia. Medications: Aspirin, Plavix 75 mg daily, Lipitor 80 mg daily, Jardiance 25 mg daily, insulin, Prilosec, Coreg 6.25 mg twice a day, losartan 12.5 mg daily, Synthroid, furosemide 40 mg daily, Pulmicort, Proscar, Cymbalta, Flomax 12/07/2023 Patient examined this morning at the bedside. Patient denies any further episodes of chest pain or pressure. He denies any shortness of breath. He remains on IV heparin. Repeat troponin this morning 2.550. Kidney function remains poor with a creatinine of 2.12. Patient's blood pressures have been on the low side with a systolic between 8090. PHYSICAL EXAM: VITAL SIGNS: Reviewed. GENERAL: Well-developed in no acute distress. NECK: Supple. No JVD or thyromegaly LUNGS: Respirations even and unlabored. Lungs essentially clear to auscultation bilaterally. HEART: Regular rate and rhythm. S1 and S2 heard. Systolic murmur noted EXTREMITIES: Normal range of motion. No clubbing or cyanosis. Peripheral pulses intact. No lower extremity edema ASSESSMENT: Unstable angina/NSTEMI Coronary artery disease with previous stenting of the LAD, September 2022, complicated by acute thrombosis requiring angioplasty and thrombectomy Status post repeat cardiac catheterization, 08/2023, revealing totally occluded LAD with distal left main disease, felt to be a poor candidate for surgical intervention Ischemic cardiomyopathy, EF 35 to 40% Chronic kidney disease Hyperlipidemia Diabetes PLAN: Continue IV heparin Continue additional cardiac medications Decrease carvedilol to 3.125mg twice a day Continue to monitor blood pressure Will make patient n.p.o. after midnight Patient to undergo cardiac cath with Dr. Nelson when he is medically stable and kidney function improves Further recommendations pending patient course Nurse practitioner note has been reviewed by physician. Signing provider agrees with the documented findings, assessment, and plan of care documented by TEXT[employer] TECH[employer]ICAL OFFICER as a scribe. Objective - Vital Signs Vital signs: Vital Signs Temp 98.4 F 12/07/23 08:00 Pulse 100 12/07/23 08:27 Resp 16 12/07/23 08:00 BP 119/56 12/07/23 08:00 Pulse Ox 92 L 12/07/23 08:14 FiO2 Intake & Output 12/06/23 12/07/23 12/07/23 18:59 06:59 18:59 Intake Total 480 493.779 Output Total 975 1985 Balance -495 -1491.221 Weight 77.111 kg 76.5 kg Intake: Intake, IV Titration 13.779 Amount Heparin Sod,Pork in 0.45% 13.779 NaCl 25,000 unit In 0.45 % NaCl 1 250ml.bag @ 12 UNITS/KG/HR 9.253 mls/hr IV .Q24H [facility] Rx#: [id number] Oral 480 480 Output: Urine 975 1950 Post Void Residual 35 Other: Voiding Method Incontinent Urinal Urinal # Voids 1 - Labs CBC & Chem 7: 12/07/23 06:31 12/07/23 06:31 Labs: Abnormal Lab Results - Last 24 Hours (Table) 12/06/23 12/06/23 12/06/23 Range/Units 11:48 12:35 16:34 WBC (3.8-10.6) k/uL RBC (4.30-5.90) m/uL Hgb (13.0-17.5) gm/dL Hct (39.0-53.0) % Lymphocytes # (1.0-4.8) k/uL APTT (22.0-30.0) sec Sodium (137-145) mmol/L Carbon Dioxide (22-30) mmol/L BUN (9-20) mg/dL Creatinine (0.66-1.25) mg/dL Glucose (74-99) mg/dL POC Glucose (mg/dL) 244 H (70-110) mg/dL Calcium (8.4-10.2) mg/dL Troponin I 0.037 H* (0.000-0.034) ng/mL Urine Glucose (UA) 4+ H (Negative) 12/06/23 12/06/23 12/06/23 Range/Units 19:20 19:20 21:02 WBC (3.8-10.6) k/uL RBC (4.30-5.90) m/uL Hgb (13.0-17.5) gm/dL Hct (39.0-53.0) % Lymphocytes # 0.4 L (1.0-4.8) k/uL APTT 195.4 H* (22.0-30.0) sec Sodium (137-145) mmol/L Carbon Dioxide (22-30) mmol/L BUN (9-20) mg/dL Creatinine (0.66-1.25) mg/dL Glucose (74-99) mg/dL POC Glucose (mg/dL) 213 H (70-110) mg/dL Calcium (8.4-10.2) mg/dL Troponin I (0.000-0.034) ng/mL Urine Glucose (UA) (Negative) 12/07/23 12/07/23 12/07/23 Range/Units 00:19 06:31 06:31 WBC (3.8-10.6) k/uL RBC (4.30-5.90) m/uL Hgb (13.0-17.5) gm/dL Hct (39.0-53.0) % Lymphocytes # (1.0-4.8) k/uL APTT 56.7 H (22.0-30.0) sec Sodium 130 L (137-145) mmol/L Carbon Dioxide 17 L (22-30) mmol/L BUN 43 H (9-20) mg/dL Creatinine 2.12 H (0.66-1.25) mg/dL Glucose 189 H (74-99) mg/dL POC Glucose (mg/dL) (70-110) mg/dL Calcium 7.9 L (8.4-10.2) mg/dL Troponin I 2.550 H* (0.000-0.034) ng/mL Urine Glucose (UA) (Negative) 12/07/23 12/07/23 12/07/23 Range/Units 06:31 06:31 06:35 WBC 3.5 L (3.8-10.6) k/uL RBC 4.20 L (4.30-5.90) m/uL Hgb 12.1 L (13.0-17.5) gm/dL Hct 36.6 L (39.0-53.0) % Lymphocytes # 0.4 L (1.0-4.8) k/uL APTT 50.5 H (22.0-30.0) sec Sodium (137-145) mmol/L Carbon Dioxide (22-30) mmol/L BUN (9-20) mg/dL Creatinine (0.66-1.25) mg/dL Glucose (74-99) mg/dL POC Glucose (mg/dL) 197 H (70-110) mg/dL Calcium (8.4-10.2) mg/dL Troponin I (0.000-0.034) ng/mL Urine Glucose (UA) (Negative) 12/07/23 Range/Units 11:19 WBC (3.8-10.6) k/uL RBC (4.30-5.90) m/uL Hgb (13.0-17.5) gm/dL Hct (39.0-53.0) % Lymphocytes # (1.0-4.8) k/uL APTT (22.0-30.0) sec Sodium (137-145) mmol/L Carbon Dioxide (22-30) mmol/L BUN (9-20) mg/dL Creatinine (0.66-1.25) mg/dL Glucose (74-99) mg/dL POC Glucose (mg/dL) 193 H (70-110) mg/dL Calcium (8.4-10.2) mg/dL Troponin I (0.000-0.034) ng/mL Urine Glucose (UA) (Negative)
[2023-12-07 12:05] LABS: Chol/HDL Ratio 4.61 Ratio; LDL Cholesterol,Calculated 38.6 mg/dL (0.0-131.0)
[2023-12-07] MEDS: INSULIN DETEMIR (LEVEMIR) 100 UNIT/ML SYR SQ SCH (12:24)
--- NOTE | 2023-12-07 12:55 | P.PN ---
Subjective Progress Note Date: 12/07/23 83-year-old male with PMH of CAD, history of CVA, diabetes mellitus, chronic kidney disease, hypertension, BPH, hypothyroidism presents the ED for chest pain. Chest pain woke him up at 3AM. Chest pain mid sternal, described as rumbling, radiating to both arms. Associated symptoms include diaphoresis. Chest pain was relieved by sublingual nitroglycerin. Of note, also reports fevers as high as 101.3F over the past 3 days. No cough, rash, urinary or bowel symptoms. In the ED, he underwent extensive evaluation. BP 98/61, HR 84, RR 20, T 102.6F, 100% on 1 LNC. CBC, coag panel and CMP was done significant for lymphocyte count of 0.5, sodium 1:30, bicarb 18, BUN 34, creatinine 1.8, glucose 184, calcium 8.2, alk phos 167. Magnesium 2.2. Troponin 0.028. Flu, RSV, COVID-19 negative. EKG showed sinus rhythm with left bundle branch block. Chest x-ray showed small right pleural effusion and pulmonary vascular congestion. Patient is admitted for chest pain, rule out acute coronary syndrome and cardiology consultation. Workup from previous admission was reviewed. Cardiac cath 09/04/23 showed 70-80% distal left main, 100% ostial LAD with collateral, 80-90% ostial PDA, 80% proximal OM1. He has been evaluated by CT surgery in the past deemed to be poor surgical candidate for revascularization. Echocardiogram 09/01/23 showed EF 35-40% with anteroseptal, anterior wall hypokinesia, mild aortic stenosis. 12/06 Patient was seen and examined. No chest pain. Troponin increased to 2.55 this morning. Started on a Heparin drip at 12 units/kg/hr. Cardiology note reviewed, plans for cardiac cath tomorrow, NPO after midnight. CBC WBC 3.5 Hg 12.1 Hct 36.6. APTT 50. BMP Na 130, bicarb 17, BUN 43, Cr 2.12, glu 189, Ca 7.9. General: non toxic, no distress, appears at stated age Derm: warm, dry Head: atraumatic, normocephalic, symmetric Eyes: EOMI, no lid lag, anicteric sclera Mouth: no lip lesion, mucus membranes moist Cardiovascular: S1S2 reg, no murmur Lungs: CTA bilateral, no rhonchi, no rales , no accessory muscle use Abdominal: soft, nontender to palpation, no guarding, no appreciable or ganomegaly Ext: no gross muscle atrophy, no edema, no contractures Neuro: no focal neuro deficits Psych: Alert, oriented, appropriate affect Based on my assessment of this patient, this patient meets a high complexity level of care. Patient has an acute diagnosis of chest pain with history of CAD that poses a threat to life or bodily function. NSTEMI: Troponins uptrending. Previous echo and cardiac cath as above in 09/12. ASA 81 mg PO QD. Lipitor 80 mg PO QHS. Plavix 75 mg PO QD. Coreg 3.125 mg PO BID. Telemetry monitoring. Cardiology on board. ZOEY on CKD: Worsening renal function. Stop Lasix IV. Stop Losartan. Obtain renal US. SIRS: Flu, RSV, COVID negative. Afebrile since admission. He does meet SISR criteria with leukopenia, tachycardia, fever. Monitor fever profile. No indications for antibiotics at this time. Systolic CHF exacerbation with right pleural effusion and pulmonary vascular congestion: Lasix IV stopped due to worsening renal function. Strict intake and outtake. Daily weights. Diabetes mellitus with hyperglycemia: Highest POC glucose 244 Levemir 35 units QD. ISS. Accuchecks ACHS. Hypoglycemic precautions. Hyponatremia Chronic conditions: history of CVA, chronic kidney disease, hypertension, BPH, hypothyroidism CODE STATUS: FULL CODE. DVT Prophylaxis: Heparin SQ. GI Prophylaxis: Protonix PO Designated medical POA if patient is not able to make medical decisions for themselves: Daughter I have reviewed the following design center consultant notes: Cardiology. I have reviewed the results of the following tests: CBC, BMP, Trop. I have ordered the following tests: CBC, BMP tomorrow. I have discussed the care of this patient with the following independent historian: RN regarding plans for cath. I have independently interpreted the following test below: I have discussed the management of this patient with the following physician: This patient meets a high level of care for the following reasons: Patient requires IV heparin which requires intensive monitoring for toxicity (coag panel) and bleeding. Objective - Vital Signs Vital signs: Vital Signs Temp 98.7 F 12/07/23 04:11 Pulse 100 12/07/23 08:27 Resp 18 12/07/23 04:11 BP 95/57 12/07/23 06:52 Pulse Ox 92 L 12/07/23 08:14 FiO2 Intake & Output 12/06/23 12/07/23 12/07/23 18:59 06:59 18:59 Intake Total 480 493.779 Output Total 975 1985 Balance -495 -1491.221 Weight 77.111 kg 76.5 kg Intake: Intake, IV Titration 13.779 Amount Heparin Sod,Pork in 0.45% 13.779 NaCl 25,000 unit In 0.45 % NaCl 1 250ml.bag @ 12 UNITS/KG/HR 9.253 mls/hr IV .Q24H [facility] Rx#: [id number] Oral 480 480 Output: Urine 975 1950 Post Void Residual 35 Other: Voiding Method Incontinent Urinal # Voids 1 - Labs CBC & Chem 7: 12/07/23 06:31 12/07/23 06:31 Labs: Abnormal Lab Results - Last 24 Hours (Table) 12/06/23 12/06/23 12/06/23 Range/Units 08:31 08:31 11:22 WBC (3.8-10.6) k/uL RBC (4.30-5.90) m/uL Hgb (13.0-17.5) gm/dL Hct (39.0-53.0) % Lymphocytes # 0.5 L (1.0-4.8) k/uL APTT (22.0-30.0) sec Sodium 130 L (137-145) mmol/L Carbon Dioxide 18 L (22-30) mmol/L BUN 34 H (9-20) mg/dL Creatinine 1.80 H (0.66-1.25) mg/dL Glucose 184 H (74-99) mg/dL POC Glucose (mg/dL) 167 H (70-110) mg/dL Calcium 8.2 L (8.4-10.2) mg/dL Alkaline Phosphatase 167 H (38-126) U/L Troponin I (0.000-0.034) ng/mL Urine Glucose (UA) (Negative) 12/06/23 12/06/23 12/06/23 Range/Units 11:48 12:35 16:34 WBC (3.8-10.6) k/uL RBC (4.30-5.90) m/uL Hgb (13.0-17.5) gm/dL Hct (39.0-53.0) % Lymphocytes # (1.0-4.8) k/uL APTT (22.0-30.0) sec Sodium (137-145) mmol/L Carbon Dioxide (22-30) mmol/L BUN (9-20) mg/dL Creatinine (0.66-1.25) mg/dL Glucose (74-99) mg/dL POC Glucose (mg/dL) 244 H (70-110) mg/dL Calcium (8.4-10.2) mg/dL Alkaline Phosphatase (38-126) U/L Troponin I 0.037 H* (0.000-0.034) ng/mL Urine Glucose (UA) 4+ H (Negative) 12/06/23 12/06/23 12/06/23 Range/Units 19:20 19:20 21:02 WBC (3.8-10.6) k/uL RBC (4.30-5.90) m/uL Hgb (13.0-17.5) gm/dL Hct (39.0-53.0) % Lymphocytes # 0.4 L (1.0-4.8) k/uL APTT 195.4 H* (22.0-30.0) sec Sodium (137-145) mmol/L Carbon Dioxide (22-30) mmol/L BUN (9-20) mg/dL Creatinine (0.66-1.25) mg/dL Glucose (74-99) mg/dL POC Glucose (mg/dL) 213 H (70-110) mg/dL Calcium (8.4-10.2) mg/dL Alkaline Phosphatase (38-126) U/L Troponin I (0.000-0.034) ng/mL Urine Glucose (UA) (Negative) 12/07/23 12/07/23 12/07/23 Range/Units 00:19 06:31 06:31 WBC (3.8-10.6) k/uL RBC (4.30-5.90) m/uL Hgb (13.0-17.5) gm/dL Hct (39.0-53.0) % Lymphocytes # (1.0-4.8) k/uL APTT 56.7 H (22.0-30.0) sec Sodium 130 L (137-145) mmol/L Carbon Dioxide 17 L (22-30) mmol/L BUN 43 H (9-20) mg/dL Creatinine 2.12 H (0.66-1.25) mg/dL Glucose 189 H (74-99) mg/dL POC Glucose (mg/dL) (70-110) mg/dL Calcium 7.9 L (8.4-10.2) mg/dL Alkaline Phosphatase (38-126) U/L Troponin I 2.550 H* (0.000-0.034) ng/mL Urine Glucose (UA) (Negative) 12/07/23 12/07/23 12/07/23 Range/Units 06:31 06:31 06:35 WBC 3.5 L (3.8-10.6) k/uL RBC 4.20 L (4.30-5.90) m/uL Hgb 12.1 L (13.0-17.5) gm/dL Hct 36.6 L (39.0-53.0) % Lymphocytes # 0.4 L (1.0-4.8) k/uL APTT 50.5 H (22.0-30.0) sec Sodium (137-145) mmol/L Carbon Dioxide (22-30) mmol/L BUN (9-20) mg/dL Creatinine (0.66-1.25) mg/dL Glucose (74-99) mg/dL POC Glucose (mg/dL) 197 H (70-110) mg/dL Calcium (8.4-10.2) mg/dL Alkaline Phosphatase (38-126) U/L Troponin I (0.000-0.034) ng/mL Urine Glucose (UA) (Negative)
[2023-12-07 16:23] LABS: Glucose,Whole Blood 218 mg/dL (70-110)
[2023-12-07] MEDS: carvediloL 3.125 MG TAB PO SCH (16:43)
[2023-12-07 20:14] LABS: Glucose,Whole Blood 161 mg/dL (70-110)
[2023-12-08 06:05] LABS: Glucose,Whole Blood 65 mg/dL (70-110)
[2023-12-08 06:18] LABS: Glucose,Whole Blood 66 mg/dL (70-110)
[2023-12-08 06:36] LABS: Glucose,Whole Blood 71 mg/dL (70-110)
[2023-12-08 10:31] LABS: African American GFR (CKD) 34 (>60 ml/min/1.73 sqM); Anion Gap 9 mmol/L; Blood Urea Nitrogen 41 mg/dL (9-20); Calcium 8.2 mg/dL (8.4-10.2); Carbon Dioxide 20 mmol/L (22-30); Chloride 99 mmol/L (98-107); Glucose 114 mg/dL (74-99); Non-African American GFR(CKD) 29 (>60 ml/min/1.73 sqM); Potassium 3.9 mmol/L (3.5-5.1); Sodium 128 mmol/L (137-145)
--- NOTE | 2023-12-08 10:51 | P.PN ---
Subjective Progress Note Date: 12/08/23 83-year-old male with PMH of CAD, history of CVA, diabetes mellitus, chronic kidney disease, hypertension, BPH, hypothyroidism presents the ED for chest pain. Chest pain woke him up at 3AM. Chest pain mid sternal, described as rumbling, radiating to both arms. Associated symptoms include diaphoresis. Chest pain was relieved by sublingual nitroglycerin. Of note, also reports fevers as high as 101.3F over the past 3 days. No cough, rash, urinary or bowel symptoms. In the ED, he underwent extensive evaluation. BP 98/61, HR 84, RR 20, T 102.6F, 100% on 1 LNC. CBC, coag panel and CMP was done significant for lymphocyte count of 0.5, sodium 1:30, bicarb 18, BUN 34, creatinine 1.8, glucose 184, calcium 8.2, alk phos 167. Magnesium 2.2. Troponin 0.028. Flu, RSV, COVID-19 negative. EKG showed sinus rhythm with left bundle branch block. Chest x-ray showed small right pleural effusion and pulmonary vascular congestion. Patient is admitted for chest pain, rule out acute coronary syndrome and cardiology consultation. Workup from previous admission was reviewed. Cardiac cath 09/04/23 showed 70-80% distal left main, 100% ostial LAD with collateral, 80-90% ostial PDA, 80% proximal OM1. He has been evaluated by CT surgery in the past deemed to be poor surgical candidate for revascularization. Echocardiogram 09/01/23 showed EF 35-40% with anteroseptal, anterior wall hypokinesia, mild aortic stenosis. 12/06 Patient was seen and examined. No chest pain. Troponin increased to 2.55 this morning. Started on a Heparin drip at 12 units/kg/hr. Cardiology note reviewed, plans for cardiac cath tomorrow, NPO after midnight. CBC WBC 3.5 Hg 12.1 Hct 36.6. APTT 50. BMP Na 130, bicarb 17, BUN 43, Cr 2.12, glu 189, Ca 7.9. 12/07 Patient was seen and examined. Tmax 101.7. Patient reports feeling sweaty and reports a headache. No chest pain. POC glucose 65-218 over the past 24H. Levemir discontinued due to hypoglycemia. He is NPO for possible cath, maintained on heparin drip at 8.11 units/kg/hr. Renal US is negative for obstructive uropathy. APTT 51.4. BMP Na 128, bicarb 20, BUN 41, Cr 2.08, glu 114, Ca 8.2. General: non toxic, no distress, appears at stated age Derm: warm, dry Head: atraumatic, normocephalic, symmetric Eyes: EOMI, no lid lag, anicteric sclera Mouth: no lip lesion, mucus membranes moist Cardiovascular: S1S2 reg, no murmur Lungs: CTA bilateral, no rhonchi, no rales , no accessory muscle use Abdominal: soft, nontender to palpation, no guarding, no appreciable organomegaly Ext: no gross muscle atrophy, no edema, no contractures Neuro: no focal neuro deficits Psych: Alert, oriented, appropriate affect Based on my assessment of this patient, this patient meets a high complexity level of care. Patient has an acute diagnosis of chest pain with history of CAD that poses a threat to life or bodily function. NSTEMI: Troponins uptrending. Previous echo and cardiac cath as above in 09/12. ASA 81 mg PO QD. Lipitor 80 mg PO QHS. Plavix 75 mg PO QD. Coreg 3.125 mg PO B ID. Plans for cardiac cath 12/07. Continue heparin drip. Telemetry monitoring. Cardiology on board. Pyrexia: Unknown etiology. UA negative. Flu RSV COVID negative. Unknown etiology. Plans to consult ID for persistent fevers. ZOEY on CKD: Improving renal function. Stop Lasix IV. Stop Losartan. Renal US negative. Systolic CHF exacerbation with right pleural effusion and pulmonary vascular congestion: Lasix IV stopped due to worsening renal function. Strict intake and outtake. Daily weights. Diabetes mellitus with hypoglycemia: Lowest POC glucose 65. Levemir discontinued. ISS. Accuchecks ACHS. Hypoglycemic precautions. Hyponatremia: Obtain serum and urine Osm and urine Na to further evaluate. Chr onically low when compared to previous admission labs. Chronic conditions: history of CVA, chronic kidney disease, hypertension, BPH, hypothyroidism CODE STATUS: FULL CODE. DVT Prophylaxis: Heparin SQ. GI Prophylaxis: Protonix PO Designated medical POA if patient is not able to make medical decisions for themselves: Daughter I have reviewed the following crm consultant notes: I have reviewed the results of the following tests: APTT, BMP. I have ordered the following tests: Serum Osm, urine Osm, urine Na, BMP tomorrow, APTT tomorrow. I have discussed the care of this patient with the following independent historian: RANDALL. I have independently interpreted the following test below: I have discussed the management of this patient with the following physician: This patient meets a high level of care for the following reasons: Patient requires IV heparin which requires intensive monitoring for toxicity (coag panel) and bleeding. Objective - Vital Signs Vital signs: Vital Signs Temp 98.4 F 12/08/23 04:00 Pulse 70 12/08/23 04:00 Resp 16 12/08/23 04:00 BP 107/53 12/08/23 04:00 Pulse Ox 96 12/08/23 04:00 FiO2 Intake & Output 12/07/23 12/08/23 12/08/23 18:59 06:59 18:59 Intake Total 350 438.958 Output Total 600 600 Balance -250 -161.042 Weight 76.4 kg Intake: Intake, IV Titration 198.958 Amount Heparin Sod,Pork in 0.45% 198.958 NaCl 25,000 unit In 0.45 % NaCl 1 250ml.bag @ 12 UNITS/KG/HR 9.253 mls/hr IV .Q24H [facility] Rx#: [id number] Oral 350 240 Output: Urine 600 600 Other: Voiding Method Urinal Urinal - Labs CBC & Chem 7: 12/07/23 06:31 12/08/23 09:33 Labs: Abnormal Lab Results - Last 24 Hours (Table) 12/07/23 12/07/23 12/07/23 Range/Units 06:31 11:19 16:21 POC Glucose (mg/dL) 193 H 218 H (70-110) mg/dL Triglycerides 179.00 H (0.00-149.00) mg/dL HDL Cholesterol 20.60 L (40.00-60.00) mg/dL 12/07/23 12/08/23 12/08/23 Range/Units 20:13 06:03 06:17 POC Glucose (mg/dL) 161 H 65 L 66 L (70-110) mg/dL Triglycerides (0.00-149.00) mg/dL HDL Cholesterol (40.00-60.00) mg/dL
[2023-12-08 11:29] LABS: Glucose,Whole Blood 107 mg/dL (70-110)
[2023-12-08] MEDS: SODIUM CHLORIDE 0.9% 1,000 ML IV SCH (12:46)
--- NOTE | 2023-12-08 13:13 | P.PN ---
Subjective HISTORY OF PRESENT ILLNESS: The patient is an 83-year-old male, followed by Dr. Nelson who presents with symptoms of chest discomfort. He has a known history of CAD underwent stenting of the LAD in September [address] Remy and subsequently was readmitted about a week after with acute thrombosis and underwent angioplasty and thrombectomy. He underwent repeat cardiac catheterization in August and was found to have totally occluded LAD with distal left main disease but was felt to be a poor candidate for any surgical intervention. He presents with symptoms of chest discomfort and dyspnea at rest yesterday, he is pain-free at the time of my evaluation. He usually has exertional angina pectoris with dyspnea on exertion. His activity is limited. He has evidence of cardiomyopathy with segmental wall motion abnormality consistent with his initial presentation with myocardial infarction. He has no significant PND, orthopnea or peripheral edema. He denies any palpitations, dizziness or syncope. His colitis factors are positive for diabetes hyperlipidemia. Medications: Aspirin, Plavix 75 mg daily, Lipitor 80 mg daily, Jardiance 25 mg daily, insulin, Prilosec, Coreg 6.25 mg twice a day, losartan 12.5 mg daily, Synthroid, furosemide 40 mg daily, Pulmicort, Proscar, Cymbalta, Flomax 12/07/2023 Patient examined this morning at the bedside. Patient denies any further episodes of chest pain or pressure. He denies any shortness of breath. He remains on IV heparin. Repeat troponin this morning 2.550. Kidney function remains poor with a creatinine of 2.12. Patient's blood pressures have been on the low side with a systolic between 8090. 12/08/2023 Patient examined this morning at the bedside. Patient denies any chest pain or pressure. He denies any shortness of breath. He remains on IV heparin. Creatinine today remains elevated at 2.08. Most recent blood pressure 114/62. PHYSICAL EXAM: VITAL SIGNS: Reviewed. GENERAL: Well-developed in no acute distress. NECK: Supple. No JVD or thyromegaly LUNGS: Respirations even and unlabored. Lungs essentially clear to auscultation bilaterally. HEART: Regular rate and rhythm. S1 and S2 heard. Systolic murmur noted EXTREMITIES: Normal range of motion. No clubbing or cyanosis. Peripheral pulses intact. No lower extremity edema ASSESSMENT: Unstable angina/NSTEMI Coronary artery disease with previous stenting of the LAD, September 2022, complicated by acute thrombosis requiring angioplasty and thrombectomy Status post repeat cardiac catheterization, 08/2023, revealing totally occluded LAD with distal left main disease, felt to be a poor candidate for surgical intervention Ischemic cardiomyopathy, EF 35 to 40% Acute on chronic kidney disease Hyperlipidemia Diabetes Hyponatremia PLAN: Continue IV heparin Continue additional cardiac medications Continue to monitor blood pressure Begin normal saline at 50 cc an hour. Repeat kidney function in a.m. Check bladder scan to assess for urinary retention Will make patient n.p.o. after midnight Patient to undergo cardiac cath with Dr. Nelson when he is medically stable and kidney function improves Further recommendations pending patient course Nurse practitioner note has been reviewed by physician. Signing provider agrees with the documented findings, assessment, and plan of care documented by [employer] as a scribe. Objective - Vital Signs Vital signs: Vital Signs Temp 97.7 F 12/08/23 12:44 Pulse 72 12/08/23 12:44 Resp 18 12/08/23 12:44 BP 114/62 12/08/23 12:44 Pulse Ox 98 12/08/23 12:44 FiO2 Intake & Output 12/07/23 12/08/23 12/08/23 18:59 06:59 18:59 Intake Total 350 438.958 240 Output Total 600 600 200 Balance -250 -161.042 40 Weight 76.4 kg Intake: Intake, IV Titration 198.958 Amount Heparin Sod,Pork in 0.45% 198.958 NaCl 25,000 unit In 0.45 % NaCl 1 250ml.bag @ 12 UNITS/KG/HR 9.253 mls/hr IV .Q24H [facility] Rx#: [id number] Oral 350 240 240 Output: Urine 600 600 200 Other: Voiding Method Urinal Urinal Urinal - Labs CBC & Chem 7: 12/07/23 06:31 12/08/23 09:33 Labs: Abnormal Lab Results - Last 24 Hours (Table) 12/07/23 12/07/23 12/08/23 Range/Units 16:21 20:13 06:03 APTT (22.0-30.0) sec Sodium (137-145) mmol/L Carbon Dioxide (22-30) mmol/L BUN (9-20) mg/dL Creatinine (0.66-1.25) mg/dL Glucose (74-99) mg/dL POC Glucose (mg/dL) 218 H 161 H 65 L (70-110) mg/dL Calcium (8.4-10.2) mg/dL 12/08/23 12/08/23 12/08/23 Range/Units 06:17 09:33 09:33 APTT 51.4 H (22.0-30.0) sec Sodium 128 L (137-145) mmol/L Carbon Dioxide 20 L (22-30) mmol/L BUN 41 H (9-20) mg/dL Creatinine 2.08 H (0.66-1.25) mg/dL Glucose 114 H (74-99) mg/dL POC Glucose (mg/dL) 66 L (70-110) mg/dL Calcium 8.2 L (8.4-10.2) mg/dL Microbiology - Last 24 Hours (Table) 12/07/23 00:19 Blood Culture - Preliminary Blood
[2023-12-08] MEDS: IOPAMIDOL CONTRAST (ORAL USE) VIAL PO PRN (16:04)
[2023-12-08 16:19] LABS: Glucose,Whole Blood 208 mg/dL (70-110)
--- NOTE | 2023-12-08 17:55 | CT ---
EXAMINATION TYPE: CT abdomen pelvis wo con CT DLP: 691.6 mGycm, Automated exposure control for dose reduction was used. DATE OF EXAM: 12/08/2023 5:27 PM COMPARISON: None CLINICAL INDICATION:Male, 83 years old with history of fever; FEVER TECHNIQUE: Axial CT abdomen pelvis wo con;Sagittal and coronal reformats were created on a separate workstation. Contrast used: mL of , (none if empty) Oral contrast used: with Oral Contrast (none if empty) FINDINGS: LOWER CHEST: Small right pleural effusion with associated atelectasis. The heart is mildly enlarged f or size. Layering barium in the distal esophagus. There is gynecomastia changes bilaterally. ABDOMEN LIVER: Unremarkable GALLBLADDER AND BILE DUCTS: Unremarkable. PANCREAS: Unremarkable. SPLEEN: Unremarkable. ADRENAL GLANDS: Unremarkable. KIDNEYS AND URETERS: There is a calculus in the right renal pelvis measuring 3 mm. No additional calc bryan visualized. No evidence of hydronephrosis or renal calculus. The ureters are unremarkable. PELVIS BLADDER: Unremarkable REPRODUCTIVE: Prostate is enlarged in size measuring 5.6 cm in transverse dimension. ABDOMEN & PELVIS STOMACH AND BOWEL: No evidence of bowel obstruction. PERITONEUM/RETROPERITONEUM: No evidence of pneumoperitoneum or free fluid. VASCULATURE: No evidence of aortic aneurysm. MUSCULOSKELETAL: No acute osseous abnormalities LYMPH NODES: No gross evidence for lymphadenopathy. SOFT TISSUE/ABDOMINAL WALL: Fat-containing left inguinal hernia. IMPRESSION: 1. No evidence for acute process right renal pelvis calculus measuring 3 mm. No significant hydronep hrosis. No additional calculi visualized. 2. Small right pleural effusion with associated atelectasis. Correlate for superimposed infection. 3. Prostatomegaly, correlate with serum PSA.
[2023-12-08 20:26] LABS: Glucose,Whole Blood 226 mg/dL (70-110)
--- NOTE | 2023-12-08 22:43 | P.CONS ---
History of Present Illness - Reason for Consult Consult date: 12/08/23 Fever Requesting physician: Delia Gutierrez - Chief Complaint Shortness of breath and cough x few days - History of Present Illness Patient is a 83-year-old male past medical history significant for diabetes mellitus hypertension PA CVA TIA presenting to the hospital 2 days ago for evaluation of chest pain patient symptoms started the morning of presentation to the hospital and apparently took nitro that relieved his pain patient on presentation to the hospital was noticed to be febrile with a temperature of 102.6 F patient was afebrile yesterday however this morning patient did spike another fever of 101.7 F that has prompted this infectious disease consultation patient did have a normal white count with lymphopenia did have elevated BUN and creatinine urine has been negative influenza RSV COVID testing was negative chest x-ray small right effusion scattered pulmonary vascular congestion infectious disease was consulted today for further manag ement of antibiotic therapy and fever patient currently denies having any fever or any chills patient is breathing comfortably on 2 L nasal cannula oxygen patient denies any further chest pain he did have some cough mild to moderate did not bring up any sputum denies any nausea no vomiting no URI symptoms no abdominal pain no diarrhea Review of Systems Positive point and negatives has been mentioned in the HPI, complete review of systems was performed and all other systems are negative Past Medical History Past Medical History: CVA/TIA, Diabetes Mellitus, Hypertension, Myocardial Infarction (PA) Additional Past Medical History / Comment(s): Stroke in December of 2021 Last Myocardial Infarction Date:: 10/03/22 History of Any Multi-Drug Resistant Organisms: None Reported Past Surgical History: Orthopedic Surgery Additional Past Surgical History / Comment(s): Urethral surgery-unsure of date Past Anesthesia/Blood Transfusion Reactions: No Reported Reaction Additional Past Anesthesia/Blood Transfusion Reaction / Comm: never had blood transfusion Date of Last Stent Placement:: 10/03/2022 Past Psychological History: No Psychological Hx Reported, Depression, PTSD Smoking Status: Former smoker - Past Family History Father Family Medical History: Hypertension Medications and Allergies Home Medications Medication Instructions Recorded Confirmed Type Aspirin [[place] Aspirin EC] 81 mg PO DAILY 10/03/22 12/06/23 History Atorvastatin Calcium [Lipitor] 80 mg PO HS 10/03/22 12/06/23 History Carboxymethylcellulose Sodium 1 drop BOTH EYES QID 10/03/22 12/06/23 History [Thera Tears] Finasteride [Proscar] 5 mg PO DAILY 10/03/22 12/06/23 History Insulin Glargine,Hum.rec.anlog 35 units SQ DAILY 10/03/22 12/06/23 History [Insulin Glargine Solostar] Magnesium Oxide 400 mg PO BID 10/03/22 12/06/23 History Omeprazole [PriLOSEC] 20 mg PO DAILY 10/03/22 12/06/23 History Sennosides/Docusate Sodium [Senna 1 tab PO DAILY PRN 10/03/22 12/06/23 History Plus 8.6-50 mg Tablet] Tamsulosin HCl [Flomax] 0.4 mg PO BID 10/03/22 12/06/23 History glipiZIDE [Glucotrol] 20 mg PO AC-BID 10/03/22 12/06/23 History Clopidogrel [Plavix] 75 mg PO DAILY #90 tab 10/07/22 12/06/23 Rx Nitroglycerin Sl Tabs [Nitrostat] 0.4 mg SL Q5M PRN 11/05/22 12/06/23 History Furosemide [Lasix] 40 mg PO DAILY #30 tablet 11/08/22 12/06/23 Rx carvediloL [Coreg] 6.25 mg PO BID-W/MEALS #60 tab 11/08/22 12/06/23 Rx DULoxetine HCL [Cymbalta] 60 mg PO DAILY 08/30/23 12/06/23 History Empagliflozin [Jardiance] 25 mg PO DAILY 08/30/23 12/06/23 History Levothyroxine Sodium [Synthroid] 25 mcg PO DAILY 08/30/23 12/06/23 History Mv-Min/Folic/K1/Lycopen/Lutein 1 tab PO DAILY 08/30/23 12/06/23 History [Centrum Silver Men Tablet] Losartan [Cozaar] 12.5 mg PO DAILY 30 Days #15 tab 09/11/23 12/06/23 Rx Budesonide [Pulmicort] 1 mg INHALATION RT-BID 12/06/23 12/06/23 History Ipratropium-Albuterol Nebulize 3 ml INHALATION RT-QID 12/06/23 12/06/23 History [Duoneb 0.5 mg-3 mg/3 ml Soln] cephALEXin [Keflex] 750 mg PO Q12HR 12/06/23 12/06/23 History Allergies Allergy/AdvReac Type Severity Reaction Status Date / Time Sulfa (Sulfonamide Allergy lips swell Verified 12/06/23 10:40 Antibiotics) Physical Exam Vitals: Vital Signs Temp Pulse Pulse Pulse Resp BP Pulse Ox 12/08/23 11:40 72 12/08/23 11:29 68 12/08/23 08:54 76 12/08/23 08:36 80 12/08/23 08:35 101.7 F H 78 18 107/64 95 12/08/23 04:00 98.4 F 70 16 107/53 96 12/07/23 23:27 98.2 F 76 16 97/56 93 L 12/07/23 20:50 82 12/07/23 19:49 98.8 F 81 16 136/77 95 12/07/23 19:42 77 12/07/23 19:31 75 12/07/23 16:00 73 16 111/62 96 12/07/23 15:44 80 12/07/23 15:34 76 12/07/23 12:00 71 16 90/49 93 L Intake and Output 12/07/23 12/08/23 12/08/23 22:59 06:59 14:59 Intake Total 480 198.958 Output Total 900 300 Balance -420 -101.042 Intake: Intake, IV Titration 198.958 Amount Heparin Sod,Pork in 0.45% 198.958 NaCl 25,000 unit In 0.45 % NaCl 1 250ml.bag @ 12 UNITS/KG/HR 9.253 mls/hr IV .Q24H [facility] Rx#: [id number] Oral 480 Output: Urine 900 300 Other: Voiding Method Urinal Urinal Urinal Weight 76.4 kg GENERAL DESCRIPTION: Elderly male lying in bed, no distress. No tachypnea or accessory muscle of respiration use. HEENT: Shows Pallor , no scleral icterus. Oral mucous membrane is dry. No pharyngeal erythema or thrush NECK: Trachea central, no thyromegaly. LUNGS: Unlabored breathing. Decreased breath sound at the base HEART: S1, S2, regular rate and rhythm. ABDOMEN: Soft, no tenderness , EXTREMITIES: No edema of feet. SKIN: No rash, no masses palpable. NEUROLOGICAL: The patient is awake, alert, oriented x3, mood and affect normal. Results CBC & Chem 7: 12/26/23 05:15 12/26/23 05:15 Labs: Abnormal Lab Results - Last 24 Hours (Table) 12/07/23 12/07/23 12/07/23 Range/Units 06:31 16:21 20:13 APTT (22.0-30.0) sec Sodium (137-145) mmol/L Carbon Dioxide (22-30) mmol/L BUN (9-20) mg/dL Creatinine (0.66-1.25) mg/dL Glucose (74-99) mg/dL POC Glucose (mg/dL) 218 H 161 H (70-110) mg/dL Calcium (8.4-10.2) mg/dL Triglycerides 179.00 H (0.00-149.00) mg/dL HDL Cholesterol 20.60 L (40.00-60.00) mg/dL 12/08/23 12/08/23 12/08/23 Range/Units 06:03 06:17 09:33 APTT 51.4 H (22.0-30.0) sec Sodium (137-145) mmol/L Carbon Dioxide (22-30) mmol/L BUN (9-20) mg/dL Creatinine (0.66-1.25) mg/dL Glucose (74-99) mg/dL POC Glucose (mg/dL) 65 L 66 L (70-110) mg/dL Calcium (8.4-10.2) mg/dL Triglycerides (0.00-149.00) mg/dL HDL Cholesterol (40.00-60.00) mg/dL 12/08/23 Range/Units 09:33 APTT (22.0-30.0) sec Sodium 128 L (137-145) mmol/L Carbon Dioxide 20 L (22-30) mmol/L BUN 41 H (9-20) mg/dL Creatinine 2.08 H (0.66-1.25) mg/dL Glucose 114 H (74-99) mg/dL POC Glucose (mg/dL) (70-110) mg/dL Calcium 8.2 L (8.4-10.2) mg/dL Triglycerides (0.00-149.00) mg/dL HDL Cholesterol (40.00-60.00) mg/dL Assessment and Plan (1) Pneumonia Status: Acute Code(s): J18.9 - PNEUMONIA, UNSPECIFIED ORGANISM SNOMED Code(s): 049052278 (2) Fever and chills Status: Acute Code(s): R50.9 - FEVER, UNSPECIFIED SNOMED Code(s): 776215283 Plan: 1patient presented hospital with chest pain noticed to have a fever on admis nury and another fever this morning did have predominantly respiratory symptoms with a question of possible pneumonia versus intra-abdominal pathology, but we did have a negative UA no evidence of any cellulitis or joint swelling 2-patient with renal insufficiency that will limit the number of antibiotics safe to use 3-we will check CRP procalcitonin CT abdominal pelvis with oral contrast only 4-empirically add Rocephin while waiting for the workup to be completed We will follow on clinical condition and cultures to further adjust medication if needed Thank you for this consultation we will follow the patient along with you Dictation was produced using [email or web address] dictation software. please excuse any grammatical, word or spelling errors. Time with Patient: Greater than 30
[2023-12-09 05:57] LABS: Glucose,Whole Blood 284 mg/dL (70-110)
[2023-12-09 07:22] LABS: African American GFR (CKD) 43 (>60 ml/min/1.73 sqM); Anion Gap 10 mmol/L; Blood Urea Nitrogen 33 mg/dL (9-20); Calcium 8.3 mg/dL (8.4-10.2); Carbon Dioxide 17 mmol/L (22-30); Chloride 100 mmol/L (98-107); Glucose 171 mg/dL (74-99); Non-African American GFR(CKD) 37 (>60 ml/min/1.73 sqM); Potassium 4.5 mmol/L (3.5-5.1); Sodium 127 mmol/L (137-145)
[2023-12-09 08:13] LABS: Glucose,Whole Blood 216 mg/dL (70-110)
[2023-12-09] MEDS: AZITHROMYCIN 500 MG TAB PO SCH (09:37)
[2023-12-09] MEDS ORDERED: ALPRAZolam 0.25 MG TAB PO PRN (09:40)
[2023-12-09] MEDS ORDERED: NITROGLYCERIN SL TABS 0.4 MG TAB SUBLINGUAL PRN (09:40)
[2023-12-09 09:42] LABS: HCT 35.7 % (39.0-53.0); HGB 11.5 gm/dL (13.0-17.5); MCHC 32.3 g/dL (31.0-37.0); MCV 86.8 fL (80.0-100.0); Mean Platelet Volume 8.2; Platelet Count 125 k/uL (150-450); RBC 4.12 m/uL (4.30-5.90); RDW 14.5 % (11.5-15.5)
[2023-12-09] MEDS: ASPIRIN 325 MG TAB PO STA (10:24)
[2023-12-09] MEDS: ATORVASTATIN 80 MG TAB PO STA (10:24)
--- NOTE | 2023-12-09 10:58 | P.PN ---
Subjective Progress Note Date: 12/09/23 83-year-old male with PMH of CAD, history of CVA, diabetes mellitus, chronic kidney disease, hypertension, BPH, hypothyroidism presents the ED for chest pain. Chest pain woke him up at 3AM. Chest pain mid sternal, described as rumbling, radiating to both arms. Associated symptoms include diaphoresis. Chest pain was relieved by sublingual nitroglycerin. Of note, also reports fevers as high as 101.3F over the past 3 days. No cough, rash, urinary or bowel symptoms. In the ED, he underwent extensive evaluation. BP 98/61, HR 84, RR 20, T 102.6F, 100% on 1 LNC. CBC, coag panel and CMP was done significant for lymphocyte count of 0.5, sodium 1:30, bicarb 18, BUN 34, creatinine 1.8, glucose 184, calcium 8.2, alk phos 167. Magnesium 2.2. Troponin 0.028. Flu, RSV, COVID-19 negative. EKG showed sinus rhythm with left bundle branch block. Chest x-ray showed small right pleural effusion and pulmonary vascular congestion. Patient is admitted for chest pain, rule out acute coronary syndrome and cardiology consultation. Workup from previous admission was reviewed. Cardiac cath 09/04/23 showed 70-80% distal left main, 100% ostial LAD with collateral, 80-90% ostial PDA, 80% proximal OM1. He has been evaluated by CT surgery in the past deemed to be poor surgical candidate for revascularization. Echocardiogram 09/01/23 showed EF 35-40% with anteroseptal, anterior wall hypokinesia, mild aortic stenosis. 12/06 Troponin increased to 2.55 this morning. Started on a Heparin drip at 12 units/kg/hr. Cardiology note reviewed, plans for cardiac cath tomorrow, NPO after midnight. 12/07 Tmax 101.7. Patient reports feeling sweaty and reports a headache. No chest pain. POC glucose 65-218 over the past 24H. Levemir discontinued due to hypoglycemia. He is NPO for possible cath, maintained on heparin drip at 8.11 units/kg/hr. Renal US is negative for obstructive uropathy. 12/08 Patient was seen and examined. Continues to have low grade fevers overnight. No chest pain. Started on NS at 50 cc/hr yesterday to improve renal function by Cardiology. Levemir restarted at lowered dose of 10 units QD for hyperglycemia. ID consulted, CT AP, Pro-yusef, CRP, repeat UA ordered. CT AP shows right renal calculus 3 mm, small right pleural effusion with atelectasis. CRP 15.7. Procal 1.09. Started on Rocephin 2g IV QD and Azithromycin 500 mg PO QD for empiric treatment of PNA. APTT is 55.7. BMP Na 127, bicarb 17, BUN 33, Cr 1.69, glu 171, Ca 8.3. CBC Hg 11.5 Hct 35.7 Plt 125. Serum Osm 279. Hopeful plans for cardiac cath today. General: non toxic, no distress, appears at stated age Derm: warm, dry Head: atraumatic, normocephalic, symmetric Eyes: EOMI, no lid lag, anicteric sclera Mouth: no lip lesion, mucus membranes moist Cardiovascular: S1S2 reg, no murmur Lungs: CTA bilateral, no rhonchi, no rales , no accessory muscle use Abdominal: soft, nontender to palpation, no guarding, no appreciable or ganomegaly Ext: no gross muscle atrophy, no edema, no contractures Neuro: no focal neuro deficits Psych: Alert, oriented, appropriate affect Based on my assessment of this patient, this patient meets a high complexity level of care. Patient has an acute diagnosis of chest pain with history of CAD that poses a threat to life or bodily function. NSTEMI: Troponins uptrending. Previous echo and cardiac cath as above in 09/12. ASA 81 mg PO QD. Lipitor 80 mg PO QHS. Plavix 75 mg PO QD. Coreg 3.125 mg PO BID. Plans for cardiac cath 12/08. Continue heparin drip at 8.11 units/kg/hr. Telemetry monitoring. Cardiology on board. SIRS: Leukopenia, tachycardia, fever. Unknown etiology. UA negative. Flu RSV COVID negative. CRP and procal elevated. CT AP shows no abdominal pathology but does show small right pleural effusion with atelectasis. Empirically started on Rocephin and Azithromycin for treatment of PNA. ID on board. ZOEY on CKD: Improving renal function. Stop Lasix IV. Stop Losartan. Renal US negative. Systolic CHF exacerbation with right pleural effusion and pulmonary vascular congestion: Lasix IV stopped due to worsening renal function. Strict intake and outtake. Daily weights. Diabetes mellitus with hyperglycemia: Highest POC glucose 285. Levemir restated at 10 units QD. ISS. Accuchecks ACHS. Hypoglycemic precautions. Hyponatremia: Obtain serum and urine Osm and urine Na to further evaluate. Chronically low when compared to previous admission labs. Worsening with IV hydration. Chronic conditions: history of CVA, chronic kidney disease, hypertension, BPH, hypothyroidism CODE STATUS: FULL CODE. DVT Prophylaxis: Heparin drip GI Prophylaxis: Protonix PO Designated medical POA if patient is not able to make medical decisions for themselves: Daughter I have reviewed the following life skills consultant notes: ID, Cardiology note. I have reviewed the results of the following tests: APTT, BMP, Serum Osm, CT AP, Pro-ysuef, CRP. I have ordered the following tests: Urine Osm, urine Na, BMP tomorrow, APTT tomorrow. I have discussed the care of this patient with the following independent historian: I have independently interpreted the following test below: I have discussed the management of this patient with the following physician: This patient meets a high level of care for the following reasons: Patient requires IV heparin which requires intensive monitoring for toxicity (coag panel) and bleeding. Patient requires adjustments in insulin which requires intensive monitoring for hypoglycemic episodes. Objective - Vital Signs Vital signs: Vital Signs Temp 98.1 F 12/09/23 04:33 Pulse 108 H 12/09/23 08:08 Resp 16 12/09/23 04:33 BP 149/74 12/09/23 04:33 Pulse Ox 96 12/09/23 04:33 FiO2 Intake & Output 12/08/23 12/09/23 12/09/23 18:59 06:59 18:59 Intake Total 240 240 Output Total 500 875 Balance -260 -635 Weight 87 kg Intake: Oral 240 240 Output: Urine 500 875 Other: Voiding Method Urinal Urinal - Labs CBC & Chem 7: 12/09/23 09:28 12/09/23 06:16 Labs: Abnormal Lab Results - Last 24 Hours (Table) 12/08/23 12/08/23 12/08/23 Range/Units 09:33 09:33 15:02 APTT 51.4 H (22.0-30.0) sec Sodium 128 L (137-145) mmol/L Carbon Dioxide 20 L (22-30) mmol/L BUN 41 H (9-20) mg/dL Creatinine 2.08 H (0.66-1.25) mg/dL Glucose 114 H (74-99) mg/dL POC Glucose (mg/dL) (70-110) mg/dL Calcium 8.2 L (8.4-10.2) mg/dL C-Reactive Protein 15.7 H (<1.0) mg/dL Procalcitonin (0.02-0.09) ng/mL 12/08/23 12/08/23 12/08/23 Range/Units 15:02 16:17 20:24 APTT (22.0-30.0) sec Sodium (137-145) mmol/L Carbon Dioxide (22-30) mmol/L BUN (9-20) mg/dL Creatinine (0.66-1.25) mg/dL Glucose (74-99) mg/dL POC Glucose (mg/dL) 208 H 226 H (70-110) mg/dL Calcium (8.4-10.2) mg/dL C-Reactive Protein (<1.0) mg/dL Procalcitonin 1.09 H (0.02-0.09) ng/mL 12/09/23 12/09/23 12/09/23 Range/Units 05:56 06:16 06:16 APTT 55.7 H (22.0-30.0) sec Sodium 127 L (137-145) mmol/L Carbon Dioxide 17 L (22-30) mmol/L BUN 33 H (9-20) mg/dL Creatinine 1.69 H (0.66-1.25) mg/dL Glucose 171 H (74-99) mg/dL POC Glucose (mg/dL) 284 H (70-110) mg/dL Calcium 8.3 L (8.4-10.2) mg/dL C-Reactive Protein (<1.0) mg/dL Procalcitonin (0.02-0.09) ng/mL 12/09/23 Range/Units 08:11 APTT (22.0-30.0) sec Sodium (137-145) mmol/L Carbon Dioxide (22-30) mmol/L BUN (9-20) mg/dL Creatinine (0.66-1.25) mg/dL Glucose (74-99) mg/dL POC Glucose (mg/dL) 216 H (70-110) mg/dL Calcium (8.4-10.2) mg/dL C-Reactive Protein (<1.0) mg/dL Procalcitonin (0.02-0.09) ng/mL Microbiology - Last 24 Hours (Table) 12/07/23 00:19 Blood Culture - Preliminary Blood
[2023-12-09 11:21] LABS: Glucose,Whole Blood 290 mg/dL (70-110)
[2023-12-09] MEDS: INSULIN DETEMIR (LEVEMIR) 100 UNIT/ML SYR SQ SCH (11:29)
[2023-12-09] MEDS: IV FLUID CONTINUATION 1,000 ML IV ONE (11:55)
[2023-12-09] MEDS: MIDAZOLAM 2 MG/2 ML VIAL IVP ONE (12:02)
[2023-12-09] MEDS: LIDOCAINE 1% INJ 10MG/ML (20 ML MDV) SQ ONE (12:04)
--- NOTE | 2023-12-09 12:58 | CC ---
CARDIAC CATHETERIZATION REPORT INDICATION: Kyn-TL-xebnwow elevation MT in a patient with significant multivessel coronary artery disease based on a cardiac catheterization in August 2023. PROCEDURE NOTE: After obtaining informed consent, I attempted to perform cardiac catheterization via the right femoral artery as the right radial artery is not palpable. I initially obtained vascular access of the right femoral artery. He had good pulses IV flow; however, when we placed the 6-Polish sheath and passed a wire, we realized it was a venous sheath. We realized that the access was into the femoral vein. Then, I attempted vascular access into the femoral artery and was not able to while he had a good pulsatile flow and several pulses brisk, we were not able to pass the wire through the needle up into the femoral artery. Hence, I decided to stop the procedure at this stage. We will bring him back and may we attempt a cardiac cath via the left radial artery. I will speak to Dr. Remy, who is rounding upstairs to see if we can do this tomorrow. MMODL / IJN: [id number] /
--- NOTE | 2023-12-09 14:22 | CDI ---
Documentation Clarification Form Date: 12/09/2023 01:56:12 PM From: Sintia Maldonado RN CCDS Phone: [phone] Admit Date: 12/06/2023 10:03:00 AM Patient Name: Gregg Fraser Visit Number: [id number] Discharge Date: ATTENTION: The Clinical Documentation Specialists (CDI) and [facility] Coding Staff appreciate your assistance in clarifying documentation. Please respond to the clarification below the line at the bottom and electronically sign. The CDI & [facility] Coding staff will review the response and follow-up if needed. Please note: Queries are made part of the Legal Health Record. If you have any questions, please contact the author of this message via ITS. Dr. Rita Dominique MD Acute Renal failure is documented 12/06, Medicine note . Additional clarification regarding the type of acute renal failure is requested. History/Risk factors: 83-year-old male presents to the ED with chest pain radiating to both arms with diaphoresis and a fever as high as 101.3F. Medical History: CKD, CHF, DM, CVA and Hypothyroidism. 12/06, Medicine note Clinical Indicators: Patient presents with a BUN/CR and GFR BUN 34, CR, 1.80 GFR 35 on 12/05 Patients baseline BUN/CR and GFR BUN 43, CR 2.12, GFR 28 on 12/06 Patients baseline BUN/CR and GFR BUN 35, CR 1.76, GFR 36 10/08/2023 BUN 52, CR 1.96, GFR 32 08/31/2023 BUN 21, CR 1.20, GFR 57 11/05/2022 Urinalysis, 12/05: Color light yellow; Appearance clear; PH 5.0; Specific [place] 1.019, Protein Negative, Glucose 4+, Urobilinogen <2.0 Kidney Ultra sound, 12/06: No evidence of obstructive uropathy CT ABD Pelvis, 12/07: No evidence for acute process right renal pelvis calculus measuring 3 mm. No significant hydronephrosis.No additional calculi visualized. Treatment: 12/06 Stopped Lasix IV and Losartan. Kidney ultrasound, CT ABD/Pelvis, 12/05 0.9NS 1L IV Bolus Please clarify the type of acute renal failure, if known: [ ] Acute Renal Failure with Acute Tubular Necrosis [ ] Acute Renal Failure with other specified pathological cause, please specify [ ] Acute Renal Failure with other cause, please specify [x] Unable to determine [ ] Other, please specify (Template Last Revised: November 2020) MTDD
[2023-12-09 16:21] LABS: Glucose,Whole Blood 322 mg/dL (70-110)
[2023-12-09 19:50] LABS: Appearance,Urine Clear (Clear); Bilirubin,Urine Negative (Negative); Blood,Urine Negative (Negative); Color,Urine Yellow; Glucose,Urine (UA) 4+ (Negative); Ketones,Urine 1+ (Negative); Leukocyte Esterase,Urine Negative (Negative); Nitrite,Urine Negative (Negative); Protein,Urine Negative (Negative); Specific Gravity,Urine 1.019 (1.001-1.035); Urobilinogen,Urine <2.0 mg/dL (<2.0)
[2023-12-09 20:12] LABS: Glucose,Whole Blood 175 mg/dL (70-110)
--- NOTE | 2023-12-09 23:56 | P.PN ---
Subjective Progress Note Date: 12/09/23 Principal diagnosis: Reason for follow-up is fever possible pneumonia Patient is a 83-year-old male past medical history significant for diabetes mellitus hypertension OR CVA TIA presenting to the hospital with chest pain shortness of breath also noticed to be febrile prompting this consultation. On today's evaluation that is 12/09/2023,the patient did have resolution of his fever and is afebrile this morning, patient is breathing comfortably on 2 L nasal cannula oxygen, the patient denies chest pain shortness of breath and no significant cough, patient denies abdominal pain, no nausea vomiting or diarrhea. Patient white count is 8 point 0 repeat UA is negative blood cultures pending Objective - Vital Signs Vital signs: Vital Signs Temp 97.9 F 12/09/23 23:30 Pulse 88 12/09/23 23:30 Resp 18 12/09/23 23:30 BP 108/58 12/09/23 23:30 Pulse Ox 96 12/09/23 23:30 FiO2 Intake & Output 12/09/23 12/09/23 12/10/23 06:59 18:59 06:59 Intake Total 240 150 420 Output Total 875 200 Balance -635 150 220 Weight 87 kg Intake: IV 150 Oral 240 0 420 Output: Urine 875 200 Other: Voiding Method Urinal Urinal Urinal - Exam GENERAL DESCRIPTION: An elderly male lying in bed in no distress RESPIRATORY SYSTEM: Unlabored breathing , decreased breath sounds at bases HEART: S1 S2 regular rate and rhythm , ABDOMEN: Soft , no tenderness EXTREMITIES: No edema feet - Labs CBC & Chem 7: 12/09/23 09:28 12/09/23 06:16 Labs: Abnormal Lab Results - Last 24 Hours (Table) 12/09/23 12/09/23 12/09/23 Range/Units 05:56 06:16 06:16 RBC (4.30-5.90) m/uL Hgb (13.0-17.5) gm/dL Hct (39.0-53.0) % Plt Count (150-450) k/uL APTT 55.7 H (22.0-30.0) sec Sodium 127 L (137-145) mmol/L Carbon Dioxide 17 L (22-30) mmol/L BUN 33 H (9-20) mg/dL Creatinine 1.69 H (0.66-1.25) mg/dL Glucose 171 H (74-99) mg/dL POC Glucose (mg/dL) 284 H (70-110) mg/dL Calcium 8.3 L (8.4-10.2) mg/dL Urine Glucose (UA) (Negative) Urine Ketones (Negative) 12/09/23 12/09/23 12/09/23 Range/Units 08:11 09:28 11:20 RBC 4.12 L (4.30-5.90) m/uL Hgb 11.5 L (13.0-17.5) gm/dL Hct 35.7 L (39.0-53.0) % Plt Count 125 L (150-450) k/uL APTT (22.0-30.0) sec Sodium (137-145) mmol/L Carbon Dioxide (22-30) mmol/L BUN (9-20) mg/dL Creatinine (0.66-1.25) mg/dL Glucose (74-99) mg/dL POC Glucose (mg/dL) 216 H 290 H (70-110) mg/dL Calcium (8.4-10.2) mg/dL Urine Glucose (UA) (Negative) Urine Ketones (Negative) 12/09/23 12/09/23 12/09/23 Range/Units 16:19 19:20 20:08 RBC (4.30-5.90) m/uL Hgb (13.0-17.5) gm/dL Hct (39.0-53.0) % Plt Count (150-450) k/uL APTT (22.0-30.0) sec Sodium (137-145) mmol/L Carbon Dioxide (22-30) mmol/L BUN (9-20) mg/dL Creatinine (0.66-1.25) mg/dL Glucose (74-99) mg/dL POC Glucose (mg/dL) 322 H 175 H (70-110) mg/dL Calcium (8.4-10.2) mg/dL Urine Glucose (UA) 4+ H (Negative) Urine Ketones 1+ H (Negative) Microbiology - Last 24 Hours (Table) 12/07/23 00:19 Blood Culture - Preliminary Blood Assessment and Plan (1) Fever and chills Current Visit: Yes Status: Acute Code(s): R50.9 - FEVER, UNSPECIFIED SNOMED Code(s): 330330853 Plan: 1patient presented hospital with chest pain noticed to have a fever on admission and another fever this morning did have predominantly respiratory symptoms with a question of possible pneumonia versus intra-abdominal pathology, but we did have a negative UA no evidence of any cellulitis or joint swelling 2-patient with renal insufficiency that will limit the number of antibiotics safe to use 3-patient did have elevated CRP procalcitonin CT abdominal pelvis with oral contrast did not show any intra-abdominal pathology concerning for possible compressive colitis/pneumonia 4-patient fever has resolved with addition of Rocephin to continue while waiting for the culture to finalize Dictation was produced using wavecatch dictation software. please excuse any grammatical, word or spelling errors. Time with Patient: Less than 30
[2023-12-10 06:06] LABS: Glucose,Whole Blood 243 mg/dL (70-110)
[2023-12-10] MEDS ORDERED: HEPARIN SODIUM,PORCINE (1 ML) 2,500 UNIT in SODIUM CHLORIDE 0.9% 250 ML IRRIGATION PRN (07:00)
[2023-12-10] MEDS ORDERED: HEPARIN SODIUM,PORCINE 10,000 UNIT in SODIUM CHLORIDE 0.9% 1,000 ML IRRIGATION PRN (07:00)
--- NOTE | 2023-12-10 11:09 | P.PN ---
Subjective Progress Note Date: 12/10/23 No new complaints, pt reports breathing has improved. Denies cp, cough, further fevers, pleuritic pain. Gen: In NAD, non-toxic HEENT: normocephalic, atraumatic, hearing acuity is intant, mucous membranes moist CVS: perfusing all extremities well, no pitting edema, Respiratory: symmetric chest expansion, no accessory muscle use, GI: soft, NTTP, ND, : no suprapubic tenderness, no CVA tenderness MSK/Derm: no rashes, cyanosis Neuro: CN II-XII intact, no motor weakness, Psych: cooperative, euthymic mood, judgment and insight is intact Hospital course: 83-year-old male with PMH of CAD, history of CVA, diabetes mellitus, chronic kidney disease, hypertension, BPH, hypothyroidism presents the ED for chest pain. Chest pain woke him up at 3AM. Chest pain mid sternal, described as rumbling, radiating to both arms. Associated symptoms include diaphoresis. Chest pain was relieved by sublingual nitroglycerin. Of note, also reports fevers as high as 101.3F over the past 3 days. No cough, rash, urinary or bowel symptoms. In the ED, he underwent extensive evaluation. BP 98/61, HR 84, RR 20, T 102.6F, 100% on 1 LNC. CBC, coag panel and CMP was done significant for lymphocyte count of 0.5, sodium 1:30, bicarb 18, BUN 34, creatinine 1.8, glucose 184, calcium 8.2, alk phos 167. Magnesium 2.2. Troponin 0.028. Flu, RSV, COVID-19 negative. EKG showed sinus rhythm with left bundle branch block. Chest x-ray showed small right pleural effusion and pulmonary vascular congestion. Patient is admitted for chest pain, rule out acute coronary syndrome and cardiology consultation. Workup from previous admission was reviewed. Cardiac cath 09/04/23 showed 70-80% distal left main, 100% ostial LAD with collateral, 80-90% ostial PDA, 80% proximal OM1. He has been evaluated by CT surgery in the past deemed to be poor surgical candidate for revascularization. Echocardiogram 09/01/23 showed EF 35-40% with anteroseptal, anterior wall hypokinesia, mild aortic stenosis. 12/06 Troponin increased to 2.55 this morning. Started on a Heparin drip at 12 units/kg/hr. Cardiology note reviewed, plans for cardiac cath tomorrow, NPO after midnight. 12/07 Tmax 101.7. Patient reports feeling sweaty and reports a headache. No chest pain. POC glucose 65-218 over the past 24H. Levemir discontinued due to h ypoglycemia. He is NPO for possible cath, maintained on heparin drip at 8.11 units/kg/hr. Renal US is negative for obstructive uropathy. 12/08 Patient was seen and examined. Continues to have low grade fevers overnight. No chest pain. Started on NS at 50 cc/hr yesterday to improve renal function by Cardiology. Levemir restarted at lowered dose of 10 units QD for hyperglycemia. ID consulted, CT AP, Pro-yusef, CRP, repeat UA ordered. CT AP shows right renal calculus 3 mm, small right pleural effusion with atelectasis. CRP 15.7. Procal 1.09. Started on Rocephin 2g IV QD and Azithromycin 500 mg PO QD for empiric treatment of PNA. APTT is 55.7. BMP Na 127, bicarb 17, BUN 33, Cr 1.69, glu 171, Ca 8.3. CBC Hg 11.5 Hct 35.7 Plt 125. Serum Osm 279. Hopeful plans for cardiac cath today. 12/09: Patient is noted to have had an attempt at left heart catheterization yesterday, however, access was difficult to establish. There will be a reattempt today. Assessment/plan: NSTEMI: -Troponins uptrending. -ASA 81 mg PO QD. Lipitor 80 mg PO QHS. Plavix 75 mg PO QD. Coreg 3.125 mg PO BID. -Plans for cardiac cath 12/09. -Continue heparin drip at 8.11 units/kg/hr. -Cardiology on board. SIRS: Leukopenia, tachycardia, fever. -Unknown etiology. UA negative. -Flu RSV COVID negative. CRP and procal elevated. -Empirically started on Rocephin and Azithromycin for treatment of PNA. ID on board. ZOEY on CKD: Improving renal function. -Stop Lasix IV. Stop Losartan. -Renal US negative. Systolic CHF exacerbation with right pleural effusion and pulmonary vascular congestion: -Lasix IV stopped due to worsening renal function. Strict intake and outtake. Daily weights. Diabetes mellitus with hyperglycemia: -Highest POC glucose 285. -Levemir restated at 10 units QD. ISS. -Accuchecks ACHS. Hypoglycemic precautions. Hyponatremia: -Obtain serum and urine Osm and urine Na to further evaluate. SOSM = 279, UOSM = 479, Andrés < 20. -Chronically low when compared to previous admission labs. Worsening with IV hydration. -Repeating BMP today to assess Chronic conditions: history of CVA, chronic kidney disease, hypertension, BPH, hypothyroidism CODE STATUS: FULL CODE. DVT Prophylaxis: Heparin drip GI Prophylaxis: Protonix PO Designated medical POA if patient is not able to make medical decisions for themselves: Daughter Objective - Vital Signs Vital signs: Vital Signs Temp 97.5 F L 12/10/23 08:40 Pulse 86 12/10/23 09:29 Resp 18 12/10/23 09:29 BP 96/60 12/10/23 08:40 Pulse Ox 97 12/10/23 08:40 FiO2 Intake & Output 12/09/23 12/10/23 12/10/23 18:59 06:59 18:59 Intake Total 150 670 Output Total 200 Balance 150 470 Intake: IV 150 Intake, IV Titration 250 Amount Heparin Sod,Pork in 0.45% 250 NaCl 25,000 unit In 0.45 % NaCl 1 250ml.bag @ 12 UNITS/KG/HR 9.253 mls/hr IV .Q24H [facility] Rx#: [id number] Oral 0 420 Output: Urine 200 Other: Voiding Method Urinal Urinal Urinal - Labs CBC & Chem 7: 12/09/23 09:28 12/09/23 06:16 Labs: Abnormal Lab Results - Last 24 Hours (Table) 12/09/23 12/09/23 12/09/23 Range/Units 11:20 16:19 16:44 APTT (22.0-30.0) sec POC Glucose (mg/dL) 290 H 322 H (70-110) mg/dL Urine Glucose (UA) (Negative) Urine Ketones (Negative) Ur Random Sodium <20 L (40-220) mmol/L 12/09/23 12/09/23 12/10/23 Range/Units 19:20 20:08 06:04 APTT (22.0-30.0) sec POC Glucose (mg/dL) 175 H 243 H (70-110) mg/dL Urine Glucose (UA) 4+ H (Negative) Urine Ketones 1+ H (Negative) Ur Random Sodium (40-220) mmol/L 12/10/23 Range/Units 07:26 APTT 48.8 H (22.0-30.0) sec POC Glucose (mg/dL) (70-110) mg/dL Urine Glucose (UA) (Negative) Urine Ketones (Negative) Ur Random Sodium (40-220) mmol/L Microbiology - Last 24 Hours (Table) 12/07/23 00:19 Blood Culture - Preliminary Blood
[2023-12-10 11:17] LABS: Glucose,Whole Blood 230 mg/dL (70-110)
[2023-12-10 11:48] LABS: Basophils % (A) 0 %; Eosinophils % (A) 1 %; HCT 35.5 % (39.0-53.0); HGB 11.2 gm/dL (13.0-17.5); Lymphocytes # (A) 0.7 k/uL (1.0-4.8); Lymphocytes % (A) 9 %; MCH 27.9 pg (25.0-35.0); MCHC 31.5 g/dL (31.0-37.0); MCV 88.7 fL (80.0-100.0); Mean Platelet Volume 8.7; Monocytes # (A) 0.4 k/uL (0-1.0); Monocytes % (A) 6 %; Neutrophils # (A) 6.1 k/uL (1.3-7.7); Neutrophils % (A) 82 %; Platelet Count 100 k/uL (150-450); RDW 14.9 % (11.5-15.5); WBC 7.5 k/uL (3.8-10.6)
[2023-12-10 12:10] LABS: African American GFR (CKD) 32 (>60 ml/min/1.73 sqM); Anion Gap 16 mmol/L; Blood Urea Nitrogen 43 mg/dL (9-20); Carbon Dioxide 12 mmol/L (22-30); Chloride 102 mmol/L (98-107); Glucose 232 mg/dL (74-99); Magnesium 2.3 mg/dL (1.6-2.3); Non-African American GFR(CKD) 27 (>60 ml/min/1.73 sqM); Potassium 4.7 mmol/L (3.5-5.1); Sodium 130 mmol/L (137-145)
[2023-12-10] MEDS: ASPIRIN 81 MG PO STA (14:56)
[2023-12-10] MEDS: ATORVASTATIN 80 MG TAB PO STA (14:56)
[2023-12-10] MEDS: IV FLUID CONTINUATION 1,000 ML IV ONE (15:48)
[2023-12-10] MEDS: MIDAZOLAM 2 MG/2 ML VIAL IVP ONE (15:51)
[2023-12-10] MEDS: LIDOCAINE 1% INJ 10MG/ML (30 ML VIAL-PF) SQ ONE (15:51)
[2023-12-10] MEDS: VERAPAMIL 2.5 MG/ML 4 ML VIAL INTRAARTER ONE (15:53)
[2023-12-10] MEDS: HEPARIN SODIUM 1,000 UN/ML (10ML VL) IVP ONE ×4 (15:56→17:09)
[2023-12-10] MEDS: PHENYLEPHRINE-0.9% NACL SYG 1,000 MCG/10 ML SYRINGE IVP ONE ×9 (16:14→17:00)
[2023-12-10] MEDS ORDERED: FLUMAZENIL 0.1 MG/ML 5 ML VIAL IVP ONE (17:02)
[2023-12-10 17:24] LABS: Glucose,Whole Blood 217 mg/dL (70-110)
[2023-12-10 17:34] LABS: Glucose,Whole Blood 213 mg/dL (70-110)
[2023-12-10] MEDS: IOPAMIDOL-370 100ML BTL INTRATHECA ONE (17:43)
[2023-12-10 19:55] LABS: Glucose,Whole Blood 263 mg/dL (70-110)
[2023-12-11 06:09] LABS: Glucose,Whole Blood 298 mg/dL (70-110)
[2023-12-11 08:17] LABS: Glucose,Whole Blood 312 mg/dL (70-110)
[2023-12-11] MEDS ORDERED: MAG HYDROX/AL HYDROX/SIMETH 30 ML CUP PO PRN (09:30)
[2023-12-11] MEDS ORDERED: RX INFO: IV CONTRAST WAS GIVEN 1 EACH MISC MISCELLANE PRN (09:30)
[2023-12-11] MEDS ORDERED: NITROGLYCERIN SL TABS 0.4 MG TAB SUBLINGUAL PRN (09:30)
[2023-12-11] MEDS ORDERED: ZOLPIDEM 5 MG TAB PO PRN (09:30)
[2023-12-11] MEDS ORDERED: ATROPINE SULFATE 0.1 MG/ML 10ML SYRINGE IV PRN (09:30)
[2023-12-11 11:35] LABS: Basophils % (A) 0 %; Eosinophils % (A) 1 %; HCT 34.4 % (39.0-53.0); HGB 11.1 gm/dL (13.0-17.5); Lymphocytes # (A) 0.5 k/uL (1.0-4.8); Lymphocytes % (A) 5 %; MCH 29.2 pg (25.0-35.0); MCHC 32.4 g/dL (31.0-37.0); MCV 90.2 fL (80.0-100.0); Mean Platelet Volume 9.4; Monocytes # (A) 0.4 k/uL (0-1.0); Monocytes % (A) 4 %; Neutrophils # (A) 7.7 k/uL (1.3-7.7); Neutrophils % (A) 89 %; Platelet Count 104 k/uL (150-450); RBC 3.81 m/uL (4.30-5.90); RDW 15.1 % (11.5-15.5); WBC 8.7 k/uL (3.8-10.6)
[2023-12-11 11:39] LABS: Glucose,Whole Blood 392 mg/dL (70-110)
[2023-12-11 11:41] LABS: African American GFR (CKD) 27 (>60 ml/min/1.73 sqM); Anion Gap 16 mmol/L; Blood Urea Nitrogen 54 mg/dL (9-20); Calcium 8.1 mg/dL (8.4-10.2); Carbon Dioxide 10 mmol/L (22-30); Chloride 98 mmol/L (98-107); Glucose 316 mg/dL (74-99); Magnesium 2.3 mg/dL (1.6-2.3); Non-African American GFR(CKD) 23 (>60 ml/min/1.73 sqM); Sodium 124 mmol/L (137-145)
--- NOTE | 2023-12-11 14:32 | P.PN ---
Subjective Progress Note Date: 12/11/23 Pt underwent LHC and had LUCY placed to left main Gen: In NAD, non-toxic HEENT: normocephalic, atraumatic, hearing acuity is intant, mucous membranes moist CVS: perfusing all extremities well, no pitting edema, Respiratory: symmetric chest expansion, no accessory muscle use, GI: soft, NTTP, ND, : no suprapubic tenderness, no CVA tenderness MSK/Derm: no rashes, cyanosis Neuro: CN II-XII intact, no motor weakness, Psych: cooperative, euthymic mood, judgment and insight is intact Hospital course: 83-year-old male with PMH of CAD, history of CVA, diabetes mellitus, chronic kidney disease, hypertension, BPH, hypothyroidism presents the ED for chest pain. Chest pain woke him up at 3AM. Chest pain mid sternal, described as rumbling, radiating to both arms. Associated symptoms include diaphoresis. Chest pain was relieved by sublingual nitroglycerin. Of note, also reports fevers as high as 101.3F over the past 3 days. No cough, rash, urinary or bowel symptoms. In the ED, he underwent extensive evaluation. BP 98/61, HR 84, RR 20, T 102.6F, 100% on 1 LNC. CBC, coag panel and CMP was done significant for lymphocyte count of 0.5, sodium 1:30, bicarb 18, BUN 34, creatinine 1.8, glucose 184, calcium 8.2, alk phos 167. Magnesium 2.2. Troponin 0.028. Flu, RSV, COVID-19 negative. EKG showed sinus rhythm with left bundle branch block. Chest x-ray showed small right pleural effusion and pulmonary vascular congestion. Patient is admitted for chest pain, rule out acute coronary syndrome and cardiology consultation. Workup from previous admission was reviewed. Cardiac cath 09/04/23 showed 70-80% distal left main, 100% ostial LAD with collateral, 80-90% ostial PDA, 80% proximal OM1. He has been evaluated by CT surgery in the past deemed to be poor surgical candidate for revascularization. Echocardiogram 09/01/23 showed EF 35-40% with anteroseptal, anterior wall hypokinesia, mild aortic stenosis. 12/06 Troponin increased to 2.55 this morning. Started on a Heparin drip at 12 units/kg/hr. Cardiology note reviewed, plans for cardiac cath tomorrow, NPO after midnight. 12/07 Tmax 101.7. Patient reports feeling sweaty and reports a headache. No chest pain. POC glucose 65-218 over the past 24H. Levemir discontinued due to hypoglycemia. He is NPO for possible cath, maintained on heparin drip at 8.11 units/kg/hr. Renal US is negative for obstructive uropathy. 12/08 Patient was seen and examined. Continues to have low grade fevers overnight. No chest pain. Started on NS at 50 cc/hr yesterday to improve renal function by Cardiology. Levemir restarted at lowered dose of 10 units QD for hyperglycemia. ID consulted, CT AP, Pro-yusef, CRP, repeat UA ordered. CT AP shows right renal calculus 3 mm, small right pleural effusion with atelectasis. CRP 15.7. Procal 1.09. Started on Rocephin 2g IV QD and Azithromycin 500 mg PO QD for empiric treatment of PNA. APTT is 55.7. BMP Na 127, bicarb 17, BUN 33, Cr 1.69, glu 171, Ca 8.3. CBC Hg 11.5 Hct 35.7 Plt 125. Serum Osm 279. Hopeful plans for cardiac cath today. 12/09: Patient is noted to have had an attempt at left heart catheterization yesterday, however, access was difficult to establish. There will be a reattempt today. Assessment/plan: NSTEMI: -Troponins uptrending. -ASA 81 mg PO QD. Lipitor 80 mg PO QHS. Plavix 75 mg PO QD. Coreg 3.125 mg PO BID. -Plans for cardiac cath 12/09. -Continue heparin drip at 8.11 units/kg/hr. -Cardiology on board. SIRS: Leukopenia, tachycardia, fever. -Unknown etiology. UA negative. -Flu RSV COVID negative. CRP and procal elevated. -Empirically started on Rocephin and Azithromycin for treatment of PNA. ID on board. ZOEY on CKD: Improving renal function. -Stop Lasix IV. Stop Losartan. -Renal US negative. Systolic CHF exacerbation with right pleural effusion and pulmonary vascular congestion: -Lasix IV stopped due to worsening renal function. Strict intake and outtake. Daily weights. Diabetes mellitus with hyperglycemia: -Highest POC glucose 285. -Levemir restated at 10 units QD. ISS. -Accuchecks ACHS. Hypoglycemic precautions. Hyponatremia: -Obtain serum and urine Osm and urine Na to further evaluate. SOSM = 279, UOSM = 479, Andrés < 20. -Chronically low when compared to previous admission labs. Worsening with IV hydration. -Repeating BMP today to assess Chronic conditions: history of CVA, chronic kidney disease, hypertension, BPH, hypothyroidism CODE STATUS: FULL CODE. DVT Prophylaxis: Heparin drip GI Prophylaxis: Protonix PO Designated medical POA if patient is not able to make medical decisions for themselves: Daughter Objective - Vital Signs Vital signs: Vital Signs Temp 97.6 F 12/11/23 07:38 Pulse 92 12/11/23 11:26 Resp 19 12/11/23 11:26 BP 104/66 12/11/23 11:26 Pulse Ox 94 L 12/11/23 11:26 FiO2 Intake & Output 12/10/23 12/11/23 12/11/23 18:59 06:59 18:59 Intake Total 801.081 240 Output Total 450 500 370 Balance 351.081 -500 -130 Weight 87 kg Intake: IV 500 Intake, IV Titration 61.081 Amount Heparin Sod,Pork in 0.45% 61.081 NaCl 25,000 unit In 0.45 % NaCl 1 250ml.bag @ 12 UNITS/KG/HR 9.253 mls/hr IV .Q24H [facility] Rx#: [id number] Oral 240 240 Output: Urine 450 500 370 Other: Voiding Method Urinal Urinal Urinal # Voids 1 # Bowel Movements 1 - Labs CBC & Chem 7: 12/11/23 10:04 12/11/23 10:04 Labs: Abnormal Lab Results - Last 24 Hours (Table) 12/10/23 12/10/23 12/10/23 Range/Units 17:13 17:32 19:53 RBC (4.30-5.90) m/uL Hgb (13.0-17.5) gm/dL Hct (39.0-53.0) % Plt Count (150-450) k/uL Lymphocytes # (1.0-4.8) k/uL Sodium (137-145) mmol/L Carbon Dioxide (22-30) mmol/L BUN (9-20) mg/dL Creatinine (0.66-1.25) mg/dL Glucose (74-99) mg/dL POC Glucose (mg/dL) 217 H 213 H 263 H (70-110) mg/dL Calcium (8.4-10.2) mg/dL 12/11/23 12/11/23 12/11/23 Range/Units 06:08 08:16 10:04 RBC 3.81 L (4.30-5.90) m/uL Hgb 11.1 L (13.0-17.5) gm/dL Hct 34.4 L (39.0-53.0) % Plt Count 104 L (150-450) k/uL Lymphocytes # 0.5 L (1.0-4.8) k/uL Sodium (137-145) mmol/L Carbon Dioxide (22-30) mmol/L BUN (9-20) mg/dL Creatinine (0.66-1.25) mg/dL Glucose (74-99) mg/dL POC Glucose (mg/dL) 298 H 312 H (70-110) mg/dL Calcium (8.4-10.2) mg/dL 12/11/23 12/11/23 Range/Units 10:04 11:38 RBC (4.30-5.90) m/uL Hgb (13.0-17.5) gm/dL Hct (39.0-53.0) % Plt Count (150-450) k/uL Lymphocytes # (1.0-4.8) k/uL Sodium 124 L (137-145) mmol/L Carbon Dioxide 10 L (22-30) mmol/L BUN 54 H (9-20) mg/dL Creatinine 2.49 H (0.66-1.25) mg/dL Glucose 316 H (74-99) mg/dL POC Glucose (mg/dL) 392 H (70-110) mg/dL Calcium 8.1 L (8.4-10.2) mg/dL Microbiology - Last 24 Hours (Table) 12/07/23 00:19 Blood Culture - Preliminary Blood
--- NOTE | 2023-12-11 14:41 | P.PN ---
Subjective HISTORY OF PRESENT ILLNESS: The patient is an 83-year-old male, followed by Dr. Nelson who presents with symptoms of chest discomfort. He has a known history of CAD underwent stenting of the LAD in September [address] Remy and subsequently was readmitted about a week after with acute thrombosis and underwent angioplasty and thrombectomy. He underwent repeat cardiac catheterization in August and was found to have totally occluded LAD with distal left main disease but was felt to be a poor candidate for any surgical intervention. He presents with symptoms of chest discomfort and dyspnea at rest yesterday, he is pain-free at the time of my evaluation. He usually has exertional angina pectoris with dyspnea on exertion. His activity is limited. He has evidence of cardiomyopathy with segmental wall motion abnormality consistent with his initial presentation with myocardial infarction. He has no significant PND, orthopnea or peripheral edema. He denies any palpitations, dizziness or syncope. His colitis factors are positive for diabetes hyperlipidemia. Medications: Aspirin, Plavix 75 mg daily, Lipitor 80 mg daily, Jardiance 25 mg daily, insulin, Prilosec, Coreg 6.25 mg twice a day, losartan 12.5 mg daily, Synthroid, furosemide 40 mg daily, Pulmicort, Proscar, Cymbalta, Flomax 12/07/2023 Patient examined this morning at the bedside. Patient denies any further episodes of chest pain or pressure. He denies any shortness of breath. He remains on IV heparin. Repeat troponin this morning 2.550. Kidney function remains poor with a creatinine of 2.12. Patient's blood pressures have been on the low side with a systolic between 8090. 12/08/2023 Patient examined this morning at the bedside. Patient denies any chest pain or pressure. He denies any shortness of breath. He remains on IV heparin. Creatinine today remains elevated at 2.08. Most recent blood pressure 114/62. 12/11/2023 Patient is status attempted catheterization with Dr. Nelson on 12/09/2023. Dr. Nelson had difficulty obtaining access and his cardiac catheterization was canceled. He underwent repeat cardiac catheterization yesterday with Dr. aJny dickinson with PCI of left main and ramus. Patient was hypotensive during the procedure. Blood pressures have improved. He did have 2 episodes of chest pain this morning that was relieved with nitro. No chest pain at the time of examination. Creatinine is up to 2.49 today. PHYSICAL EXAM: VITAL SIGNS: Reviewed. GENERAL: Well-developed in no acute distress. NECK: Supple. No JVD or thyromegaly LUNGS: Respirations even and unlabored. Lungs essentially clear to auscultation bilaterally. HEART: Regular rate and rhythm. S1 and S2 heard. Systolic murmur noted EXTREMITIES: Normal range of motion. No clubbing or cyanosis. Peripheral pulses intact. No lower extremity edema ASSESSMENT: Unstable angina/NSTEMI, s/p stenting of left main and ramus Coronary artery disease with previous stenting of the LAD, September 2022, complicated by acute thrombosis requiring angioplasty and thrombectomy Status post repeat cardiac catheterization, 08/2023, revealing totally occluded LAD with distal left main disease, felt to be a poor candidate for surgical intervention Ischemic cardiomyopathy, EF 35 to 40% Acute kidney injury Chronic kidney disease Hypotension Hyperlipidemia Diabetes Hyponatremia PLAN: Continue current cardiac medications Discontinue coreg and imdur Add Midodrine Consult nephrology for evaluation Further recommendations pending patient course Nurse practitioner note has been reviewed by physician. Signing provider agrees with the documented findings, assessment, and plan of care documented by EDUCATIONAL ASSISTANT as a scribe. Objective - Vital Signs Vital signs: Vital Signs Temp 97.6 F 12/11/23 07:38 Pulse 104 H 12/11/23 08:54 Resp 20 12/11/23 07:38 BP 116/72 12/11/23 07:38 Pulse Ox 95 12/11/23 07:38 FiO2 Intake & Output 12/10/23 12/11/23 12/11/23 18:59 06:59 18:59 Intake Total 801.081 Output Total 450 500 Balance 351.081 -500 Intake: IV 500 Intake, IV Titration 61.081 Amount Heparin Sod,Pork in 0.45% 61.081 NaCl 25,000 unit In 0.45 % NaCl 1 250ml.bag @ 12 UNITS/KG/HR 9.253 mls/hr IV .Q24H [facility] Rx#: [id number] Oral 240 Output: Urine 450 500 Other: Voiding Method Urinal Urinal # Voids 1 # Bowel Movements 1 - Labs CBC & Chem 7: 12/11/23 10:04 12/11/23 10:04 Labs: Abnormal Lab Results - Last 24 Hours (Table) 12/10/23 12/10/23 12/10/23 Range/Units 11:15 11:31 11:31 RBC 4.00 L (4.30-5.90) m/uL Hgb 11.2 L (13.0-17.5) gm/dL Hct 35.5 L (39.0-53.0) % Plt Count 100 L (150-450) k/uL Lymphocytes # 0.7 L (1.0-4.8) k/uL Sodium 130 L (137-145) mmol/L Carbon Dioxide 12 L (22-30) mmol/L BUN 43 H (9-20) mg/dL Creatinine 2.19 H (0.66-1.25) mg/dL Glucose 232 H (74-99) mg/dL POC Glucose (mg/dL) 230 H (70-110) mg/dL Calcium 8.0 L (8.4-10.2) mg/dL 12/10/23 12/10/23 12/10/23 Range/Units 17:13 17:32 19:53 RBC (4.30-5.90) m/uL Hgb (13.0-17.5) gm/dL Hct (39.0-53.0) % Plt Count (150-450) k/uL Lymphocytes # (1.0-4.8) k/uL Sodium (137-145) mmol/L Carbon Dioxide (22-30) mmol/L BUN (9-20) mg/dL Creatinine (0.66-1.25) mg/dL Glucose (74-99) mg/dL POC Glucose (mg/dL) 217 H 213 H 263 H (70-110) mg/dL Calcium (8.4-10.2) mg/dL 12/11/23 12/11/23 Range/Units 06:08 08:16 RBC (4.30-5.90) m/uL Hgb (13.0-17.5) gm/dL Hct (39.0-53.0) % Plt Count (150-450) k/uL Lymphocytes # (1.0-4.8) k/uL Sodium (137-145) mmol/L Carbon Dioxide (22-30) mmol/L BUN (9-20) mg/dL Creatinine (0.66-1.25) mg/dL Glucose (74-99) mg/dL POC Glucose (mg/dL) 298 H 312 H (70-110) mg/dL Calcium (8.4-10.2) mg/dL Microbiology - Last 24 Hours (Table) 12/07/23 00:19 Blood Culture - Preliminary Blood
--- NOTE | 2023-12-11 15:19 | P.PN ---
Subjective Progress Note Date: 12/10/23 Principal diagnosis: Reason for follow-up is fever possible pneumonia Patient is a 83-year-old male past medical history significant for diabetes mellitus hypertension [place] CVA TIA presenting to the hospital with chest pain shortness of breath also noticed to be febrile prompting this consultation. On today's evaluation that is 12/10/2023,the patient remains to be afebrile, patient is on 3 L nasal cannula supplemental oxygen and denies any shortness of breath no chest pain or worsening cough.Patient denies having any nausea or vomiting, no abdominal pain and no diarrhea has been reported. Patient white count is 7.5, creatinine is 2.19 urine for Legionella antigen negative repeat UA negative procalcitonin 1.09 Objective - Vital Signs Vital signs: Vital Signs Temp 97.4 F L 12/10/23 12:38 Pulse 79 12/10/23 12:38 Resp 21 12/10/23 12:38 BP 111/67 12/10/23 12:38 Pulse Ox 97 12/10/23 12:38 FiO2 Intake & Output 12/09/23 12/10/23 12/10/23 18:59 06:59 18:59 Intake Total 150 670 Output Total 200 Balance 150 470 Intake: IV 150 Intake, IV Titration 250 Amount Heparin Sod,Pork in 0.45% 250 NaCl 25,000 unit In 0.45 % NaCl 1 250ml.bag @ 12 UNITS/KG/HR 9.253 mls/hr IV .Q24H [facility] Rx#: [id number] Oral 0 420 Output: Urine 200 Other: Voiding Method Urinal Urinal Urinal - Exam GENERAL DESCRIPTION: An elderly male lying in bed in no distress RESPIRATORY SYSTEM: Unlabored breathing , decreased breath sounds at bases HEART: S1 S2 regular rate and rhythm , ABDOMEN: Soft , no tenderness EXTREMITIES: No edema feet - Labs CBC & Chem 7: 12/11/23 10:04 12/11/23 10:04 Labs: Abnormal Lab Results - Last 24 Hours (Table) 12/09/23 12/09/23 12/09/23 Range/Units 16:19 16:44 19:20 RBC (4.30-5.90) m/uL Hgb (13.0-17.5) gm/dL Hct (39.0-53.0) % Plt Count (150-450) k/uL Lymphocytes # (1.0-4.8) k/uL APTT (22.0-30.0) sec Sodium (137-145) mmol/L Carbon Dioxide (22-30) mmol/L BUN (9-20) mg/dL Creatinine (0.66-1.25) mg/dL Glucose (74-99) mg/dL POC Glucose (mg/dL) 322 H (70-110) mg/dL Calcium (8.4-10.2) mg/dL Urine Glucose (UA) 4+ H (Negative) Urine Ketones 1+ H (Negative) Ur Random Sodium <20 L (40-220) mmol/L 12/09/23 12/10/23 12/10/23 Range/Units 20:08 06:04 07:26 RBC (4.30-5.90) m/uL Hgb (13.0-17.5) gm/dL Hct (39.0-53.0) % Plt Count (150-450) k/uL Lymphocytes # (1.0-4.8) k/uL APTT 48.8 H (22.0-30.0) sec Sodium (137-145) mmol/L Carbon Dioxide (22-30) mmol/L BUN (9-20) mg/dL Creatinine (0.66-1.25) mg/dL Glucose (74-99) mg/dL POC Glucose (mg/dL) 175 H 243 H (70-110) mg/dL Calcium (8.4-10.2) mg/dL Urine Glucose (UA) (Negative) Urine Ketones (Negative) Ur Random Sodium (40-220) mmol/L 12/10/23 12/10/23 12/10/23 Range/Units 11:15 11:31 11:31 RBC 4.00 L (4.30-5.90) m/uL Hgb 11.2 L (13.0-17.5) gm/dL Hct 35.5 L (39.0-53.0) % Plt Count 100 L (150-450) k/uL Lymphocytes # 0.7 L (1.0-4.8) k/uL APTT (22.0-30.0) sec Sodium 130 L (137-145) mmol/L Carbon Dioxide 12 L (22-30) mmol/L BUN 43 H (9-20) mg/dL Creatinine 2.19 H (0.66-1.25) mg/dL Glucose 232 H (74-99) mg/dL POC Glucose (mg/dL) 230 H (70-110) mg/dL Calcium 8.0 L (8.4-10.2) mg/dL Urine Glucose (UA) (Negative) Urine Ketones (Negative) Ur Random Sodium (40-220) mmol/L Microbiology - Last 24 Hours (Table) 12/07/23 00:19 Blood Culture - Preliminary Blood Assessment and Plan (1) Fever and chills Current Visit: Yes Status: Acute Code(s): R50.9 - FEVER, UNSPECIFIED SNOMED Code(s): 069608427 Plan: 1patient presented hospital with chest pain noticed to have a fever on admission and another fever this morning did have predominantly respiratory symptoms with a question of possible pneumonia versus intra-abdominal pathology, but we did have a negative UA no evidence of any cellulitis or joint swelling 2-patient with renal insufficiency that will limit the number of antibiotics safe to use 3-patient did have elevated CRP and procalcitonin CT abdominal pelvis with oral contrast did not show any intra-abdominal pathology concerning for possible compressive atelectasis/pneumonia 4-patient fever has resolved, we will keep the patient on Rocephin while waiting for the culture to finalize Dictation was produced using [employer] dictation software. please excuse any grammatical, word or spelling errors. Time with Patient: Less than 30
--- NOTE | 2023-12-11 15:21 | P.PN ---
Subjective Progress Note Date: 12/11/23 Principal diagnosis: Reason for follow-up is fever possible pneumonia Patient is a 83-year-old male past medical history significant for diabetes mellitus hypertension [place] CVA TIA presenting to the hospital with chest pain shortness of breath also noticed to be febrile prompting this consultation. On today's evaluation that is 12/11/2023, the patient continues to be afebrile, patient is a breathing comfortably on 3 L nasal cannula oxygen patient denies having any chest pain denies any worsening cough or sputum production no nausea vomiting abdominal pain or diarrhea. Patient white count is 8.7, creatinine is 2.49 blood cultures so far pending Objective - Vital Signs Vital signs: Vital Signs Temp 97.6 F 12/11/23 07:38 Pulse 92 12/11/23 11:26 Resp 19 12/11/23 11:26 BP 104/66 12/11/23 11:26 Pulse Ox 94 L 12/11/23 11:26 FiO2 Intake & Output 12/10/23 12/11/23 12/11/23 18:59 06:59 18:59 Intake Total 801.081 240 Output Total 450 500 370 Balance 351.081 -500 -130 Intake: IV 500 Intake, IV Titration 61.081 Amount Heparin Sod,Pork in 0.45% 61.081 NaCl 25,000 unit In 0.45 % NaCl 1 250ml.bag @ 12 UNITS/KG/HR 9.253 mls/hr IV .Q24H [facility] Rx#: [id number] Oral 240 240 Output: Urine 450 500 370 Other: Voiding Method Urinal Urinal Urinal # Voids 1 # Bowel Movements 1 - Exam GENERAL DESCRIPTION: An elderly male lying in bed in no distress RESPIRATORY SYSTEM: Unlabored breathing , decreased breath sounds at bases HEART: S1 S2 regular rate and rhythm , ABDOMEN: Soft , no tenderness EXTREMITIES: No edema feet - Labs CBC & Chem 7: 12/11/23 10:04 12/11/23 10:04 Labs: Abnormal Lab Results - Last 24 Hours (Table) 12/10/23 12/10/23 12/10/23 Range/Units 17:13 17:32 19:53 RBC (4.30-5.90) m/uL Hgb (13.0-17.5) gm/dL Hct (39.0-53.0) % Plt Count (150-450) k/uL Lymphocytes # (1.0-4.8) k/uL Sodium (137-145) mmol/L Carbon Dioxide (22-30) mmol/L BUN (9-20) mg/dL Creatinine (0.66-1.25) mg/dL Glucose (74-99) mg/dL POC Glucose (mg/dL) 217 H 213 H 263 H (70-110) mg/dL Calcium (8.4-10.2) mg/dL 12/11/23 12/11/23 12/11/23 Range/Units 06:08 08:16 10:04 RBC 3.81 L (4.30-5.90) m/uL Hgb 11.1 L (13.0-17.5) gm/dL Hct 34.4 L (39.0-53.0) % Plt Count 104 L (150-450) k/uL Lymphocytes # 0.5 L (1.0-4.8) k/uL Sodium (137-145) mmol/L Carbon Dioxide (22-30) mmol/L BUN (9-20) mg/dL Creatinine (0.66-1.25) mg/dL Glucose (74-99) mg/dL POC Glucose (mg/dL) 298 H 312 H (70-110) mg/dL Calcium (8.4-10.2) mg/dL 12/11/23 12/11/23 Range/Units 10:04 11:38 RBC (4.30-5.90) m/uL Hgb (13.0-17.5) gm/dL Hct (39.0-53.0) % Plt Count (150-450) k/uL Lymphocytes # (1.0-4.8) k/uL Sodium 124 L (137-145) mmol/L Carbon Dioxide 10 L (22-30) mmol/L BUN 54 H (9-20) mg/dL Creatinine 2.49 H (0.66-1.25) mg/dL Glucose 316 H (74-99) mg/dL POC Glucose (mg/dL) 392 H (70-110) mg/dL Calcium 8.1 L (8.4-10.2) mg/dL Microbiology - Last 24 Hours (Table) 12/07/23 00:19 Blood Culture - Preliminary Blood Assessment and Plan (1) Fever and chills Current Visit: Yes Status: Acute Code(s): R50.9 - FEVER, UNSPECIFIED SNOMED Code(s): 569980670 Plan: 1patient presented hospital with chest pain noticed to have a fever on admission and another fever this morning did have predominantly respiratory symptoms with a question of possible pneumonia versus intra-abdominal pathology, but we did have a negative UA no evidence of any cellulitis or joint swelling 2-patient with renal insufficiency and noticed to have slight worsening of his kidney function being managed by admitting team 3-patient did have elevated CRP and procalcitonin CT abdominal pelvis with oral contrast did not show any intra-abdominal pathology concerning for possible compressive atelectasis/pneumonia 4-patient fever has resolved and white count has been normal cultures so far negative continue with Rocephin and monitor clinical course closely Dictation was produced using [employer] dictation software. please excuse any grammatical, word or spelling errors. Time with Patient: Less than 30
--- NOTE | 2023-12-11 15:25 | XR ---
EXAMINATION TYPE: XR chest 2V DATE OF EXAM: 12/11/2023 3:17 PM CLINICAL INDICATION:Male, 83 years old with history of SOB; COMPARISON: Chest radiographs from 12/06/2023. TECHNIQUE: XR chest 2V Frontal and lateral views of the chest. FINDINGS: Lungs/Pleura: Small right effusion. There is no evidence of left pleural effusion, focal consolidatio n, or pneumothorax. Azygous fissure in the right upper lung. Pulmonary vascularity: Pulmonary vascular congestion. Heart/mediastinum: Cardiomediastinal silhouette is enlarged and stable. Musculoskeletal: No acute osseous pathology. Other findings: None IMPRESSION: Small right pleural effusion with cardiomegaly and pulmonary vascular congestion. Correlate with seru m BNP.
[2023-12-11 16:35] LABS: Glucose,Whole Blood 306 mg/dL (70-110)
[2023-12-11] MEDS: MIDODRINE 5 MG TAB PO SCH (17:02)
[2023-12-11 19:55] LABS: Glucose,Whole Blood 281 mg/dL (70-110)
[2023-12-11] MEDS: ALPRAZolam 0.5 MG TAB PO PRN (19:59)
[2023-12-12 06:20] LABS: Glucose,Whole Blood 248 mg/dL (70-110)
[2023-12-12 09:44] LABS: ABG Base Excess -8.3 mmol/L; ABG HCO3 18 mmol/L (21-25); ABG PCO2 34 mmHg (35-45); ABG PH 7.33 (7.35-7.45); ABG PO2 93 mmHg (83-108); ABG TCO2 19 mmol/L (19-24); Allen Test Performed? Yes
--- NOTE | 2023-12-12 10:52 | P.NPCON ---
History of Present Illness - Reason for Consult acute renal failure, chronic renal failure - History of Present Illness Reason for consultation: Acute kidney injury on chronic kidney disease History of present illness: Patient is 83-year-old male seen in renal consultation for acute kidney injury on chronic kidney disease. Patient has chronic kidney disease stage IIIb with baseline creatinine 1.6-1.8 secondary to nephrosclerosis. Serologies in the past have been negative. Patient came to the hospital due to chest pain. Patient has history of coronary artery disease but was deemed not a candidate for CABG due to comorbidities. He underwent cardiac catheterization on December 10, 2023 with placement of stent. Patient was receiving Lasix but is currently on hold. After the catheterization patient was noted to be hypotensive with blood pressure as low as in the systolic 60s. Blood pressure is now improved. He is on midodrine. Patient has longstanding history of diabetes. Currently he is not answering any questions. He is on a nasal cannula. Has been voiding. Denies gross hematuria. He is on a nasal cannula. Vital signs are stable. General: No acute distress. HEENT: Head exam is unremarkable. On nasal cannula. LUNGS: No audible rhonchi or wheezes. HEART: Rate and Rhythm are regular. First and Second Heart Sounds Normal. No Murmurs, Rubs or Gallops. ABDOMEN: Nontender. EXTREMITITES: No edema. Past Medical History Past Medical History: CVA/TIA, Diabetes Mellitus, Hypertension, Myocardial Infarction ([place]) Additional Past Medical History / Comment(s): Stroke in December of 2021 Last Myocardial Infarction Date:: 10/03/22 History of Any Multi-Drug Resistant Organisms: None Reported Past Surgical History: Orthopedic Surgery Additional Past Surgical History / Comment(s): Urethral surgery-unsure of date Past Anesthesia/Blood Transfusion Reactions: No Reported Reaction Additional Past Anesthesia/Blood Transfusion Reaction / Comment(s): never had blood transfusion Date of Last Stent Placement:: 10/03/2022 Past Psychological History: No Psychological Hx Reported, Depression, PTSD Smoking Status: Former smoker - Past Family History Father Family Medical History: Hypertension Medications and Allergies Home Medications Medication Instructions Recorded Confirmed Type Aspirin [[place] Aspirin EC] 81 mg PO DAILY 10/03/22 12/06/23 History Atorvastatin Calcium [Lipitor] 80 mg PO HS 10/03/22 12/06/23 History Carboxymethylcellulose Sodium 1 drop BOTH EYES QID 10/03/22 12/06/23 History [Thera Tears] Finasteride [Proscar] 5 mg PO DAILY 10/03/22 12/06/23 History Insulin Glargine,Hum.rec.anlog 35 units SQ DAILY 10/03/22 12/06/23 History [Insulin Glargine Solostar] Magnesium Oxide 400 mg PO BID 10/03/22 12/06/23 History Omeprazole [PriLOSEC] 20 mg PO DAILY 10/03/22 12/06/23 History Sennosides/Docusate Sodium [Senna 1 tab PO DAILY PRN 10/03/22 12/06/23 History Plus 8.6-50 mg Tablet] Tamsulosin HCl [Flomax] 0.4 mg PO BID 10/03/22 12/06/23 History glipiZIDE [Glucotrol] 20 mg PO AC-BID 10/03/22 12/06/23 History Clopidogrel [Plavix] 75 mg PO DAILY #90 tab 10/07/22 12/06/23 Rx Nitroglycerin Sl Tabs [Nitrostat] 0.4 mg SL Q5M PRN 11/05/22 12/06/23 History Furosemide [Lasix] 40 mg PO DAILY #30 tablet 11/08/22 12/06/23 Rx carvediloL [Coreg] 6.25 mg PO BID-W/MEALS #60 tab 11/08/22 12/06/23 Rx DULoxetine HCL [Cymbalta] 60 mg PO DAILY 08/30/23 12/06/23 History Empagliflozin [Jardiance] 25 mg PO DAILY 08/30/23 12/06/23 History Levothyroxine Sodium [Synthroid] 25 mcg PO DAILY 08/30/23 12/06/23 History Mv-Min/Folic/K1/Lycopen/Lutein 1 tab PO DAILY 08/30/23 12/06/23 History [Centrum Silver Men Tablet] Losartan [Cozaar] 12.5 mg PO DAILY 30 Days #15 tab 09/11/23 12/06/23 Rx Budesonide [Pulmicort] 1 mg INHALATION RT-BID 12/06/23 12/06/23 History Ipratropium-Albuterol Nebulize 3 ml INHALATION RT-QID 12/06/23 12/06/23 History [Duoneb 0.5 mg-3 mg/3 ml Soln] cephALEXin [Keflex] 750 mg PO Q12HR 12/06/23 12/06/23 History Allergies Allergy/AdvReac Type Severity Reaction Status Date / Time Sulfa (Sulfonamide Allergy lips swell Verified 12/06/23 10:40 Antibiotics) Physical Exam Vitals: Vital Signs Temp Pulse Pulse Pulse Pulse Resp BP 12/12/23 08:41 97.3 F L 95 21 12/12/23 08:35 96 12/12/23 08:11 94 12/12/23 06:30 133/77 12/12/23 03:13 97.9 F 108 H 28 H 119/70 12/11/23 23:11 98.7 F 101 H 28 H 131/77 12/11/23 22:14 97.5 F L 101 H 30 H 12/11/23 21:14 100 12/11/23 21:01 99 12/11/23 19:46 97.6 F 103 H 20 12/11/23 19:45 98.4 F 103 H 24 120/76 12/11/23 16:00 92 19 12/11/23 15:54 97.5 F L 89 20 12/11/23 11:26 92 19 104/66 BP Pulse Ox FiO2 12/12/23 08:41 121/69 93 L 12/12/23 08:35 12/12/23 08:11 88 L 21 12/12/23 06:30 12/12/23 03:13 95 12/11/23 23:11 95 12/11/23 22:14 127/77 96 12/11/23 21:14 12/11/23 21:01 12/11/23 19:46 103/84 92 L 12/11/23 19:45 94 L 12/11/23 16:00 104/70 96 12/11/23 15:54 123/69 96 12/11/23 11:26 94 L Intake and Output 12/11/23 12/12/23 12/12/23 22:59 06:59 14:59 Intake Total 240 Balance 240 Intake: Oral 240 Other: Voiding Method Urinal Toilet Toilet # Voids 1 # Bowel Movements 1 Results - Lab Results Most recent lab results ABG pH 7.33 (7.35-7.45) L 03/23/24 09:40 ABG pCO2 34 mmHg (35-45) L 12/12/23 09:40 ABG pO2 93 mmHg (83-108) 12/12/23 09:40 ABG HCO3 18 mmol/L (21-25) L 12/12/23 09:40 ABG O2 Saturation 97.0 % (94-97) 12/12/23 09:40 Calcium 8.1 mg/dL (8.4-10.2) L 12/11/23 10:04 Magnesium 2.3 mg/dL (1.6-2.3) 12/11/23 10:04 12/11/23 10:04 12/11/23 10:04 Assessment and Plan Plan: Assessment: 1. Acute kidney injury secondary to hemodynamic ATN. Also component of contrast-induced acute kidney injury. Creatinine up to 2.49 yesterday. UA benign. No hydronephrosis noted on CAT scan. 2. 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 3. Coronary artery disease status postcardiac catheterization with stent placement on December 10, 2023. Not a candidate for CABG. 4. Metabolic acidosis secondary to acute kidney injury with appropriate respiratory compensation. 5. Hyponatremia. Component of poor solute intake. 6. Diabetes mellitus. 7. Possible pneumonia on antibiotics. ID following. Plan: Add oral bicarb. Encouraged oral intake. Add 1200 cc fluid restriction. Morning labs pending. Avoid nephrotoxins. Check bladder scan to rule out urinary retention. Thank you for the consultation. I will continue to follow the patient with you during his hospital stay.
[2023-12-12 11:32] LABS: Glucose,Whole Blood 282 mg/dL (70-110)
--- NOTE | 2023-12-12 11:51 | P.PN ---
Subjective Progress Note Date: 12/12/23 No new complaints today Gen: In NAD, non-toxic HEENT: normocephalic, atraumatic, hearing acuity is intant, mucous membranes moist CVS: perfusing all extremities well, no pitting edema, Respiratory: symmetric chest expansion, no accessory muscle use, GI: soft, NTTP, ND, : no suprapubic tenderness, no CVA tenderness MSK/Derm: no rashes, cyanosis Neuro: CN II-XII intact, no motor weakness, Psych: cooperative, euthymic mood, judgment and insight is intact Hospital course: 83-year-old male with PMH of CAD, history of CVA, diabetes mellitus, chronic kidney disease, hypertension, BPH, hypothyroidism presents the ED for chest pain. Chest pain woke him up at 3AM. Chest pain mid sternal, described as rumbling, radiating to both arms. Associated symptoms include diaphoresis. Chest pain was relieved by sublingual nitroglycerin. Of note, also reports fevers as high as 101.3F over the past 3 days. No cough, rash, urinary or bowel symptoms. In the ED, he underwent extensive evaluation. BP 98/61, HR 84, RR 20, T 102.6F, 100% on 1 LNC. CBC, coag panel and CMP was done significant for lymphocyte count of 0.5, sodium 1:30, bicarb 18, BUN 34, creatinine 1.8, glucose 184, calcium 8.2, alk phos 167. Magnesium 2.2. Troponin 0.028. Flu, RSV, COVID-19 negative. EKG showed sinus rhythm with left bundle branch block. Chest x-ray showed small right pleural effusion and pulmonary vascular congestion. Patient is admitted for chest pain, rule out acute coronary syndrome and cardiology consultation. Workup from previous admission was reviewed. Cardiac cath 09/04/23 showed 70-80% distal left main, 100% ostial LAD with collateral, 80-90% ostial PDA, 80% proximal OM1. He has been evaluated by CT surgery in the past deemed to be poor surgical candidate for revascularization. Echocardiogram 09/01/23 showed EF 35-40% with anteroseptal, anterior wall hypokinesia, mild aortic stenosis. 12/06 Troponin increased to 2.55 this morning. Started on a Heparin drip at 12 units/kg/hr. Cardiology note reviewed, plans for cardiac cath tomorrow, NPO after midnight. 12/07 Tmax 101.7. Patient reports feeling sweaty and reports a headache. No chest pain. POC glucose 65-218 over the past 24H. Levemir discontinued due to hypoglycemia. He is NPO for possible cath, maintained on heparin drip at 8.11 units/kg/hr. Renal US is negative for obstructive uropathy. 12/08 Patient was seen and examined. Continues to have low grade fevers overnight. No chest pain. Started on NS at 50 cc/hr yesterday to improve renal function by Cardiology. Levemir restarted at lowered dose of 10 units QD for hyperglycemia. ID consulted, CT AP, Pro-yusef, CRP, repeat UA ordered. CT AP shows right renal calculus 3 mm, small right pleural effusion with atelectasis. CRP 15.7. Procal 1.09. Started on Rocephin 2g IV QD and Azithromycin 500 mg PO QD for empiric treatment of PNA. APTT is 55.7. BMP Na 127, bicarb 17, BUN 33, Cr 1.69, glu 171, Ca 8.3. CBC Hg 11.5 Hct 35.7 Plt 125. Serum Osm 279. Hopeful plans for cardiac cath today. 12/09: Patient is noted to have had an attempt at left heart catheterization yesterday, however, access was difficult to establish. There will be a reattempt today. Assessment/plan: NSTEMI: -Troponins uptrending. -ASA 81 mg PO QD. Lipitor 80 mg PO QHS. Plavix 75 mg PO QD. Coreg 3.125 mg PO BID. -Plans for cardiac cath 12/09, s/p LUCY to Left Main -Heparin gtt discontinued -Cardiology on board. -On midodrine SIRS: Leukopenia, tachycardia, fever. -Unknown etiology. UA negative. -Flu RSV COVID negative. CRP and procal elevated. -Empirically started on Rocephin and Azithromycin for treatment of PNA. ID on board. ZOEY on CKD: Improving renal function. -Stop Lasix IV. Stop Losartan. -Renal US negative. Systolic CHF exacerbation with right pleural effusion and pulmonary vascular congestion: -Lasix IV stopped due to worsening renal function. Strict intake and outtake. Daily weights. Diabetes mellitus with hyperglycemia: -Highest POC glucose 285. -Levemir restated at 10 units QD. ISS. -Accuchecks ACHS. Hypoglycemic precautions. Hyponatremia: -Obtain serum and urine Osm and urine Na to further evaluate. SOSM = 279, UOSM = 479, Andrés < 20. -Chronically low when compared to previous admission labs. Worsening with IV hydration. -Repeating BMP today to assess Chronic conditions: history of CVA, chronic kidney disease, hypertension, BPH, hypothyroidism CODE STATUS: FULL CODE. DVT Prophylaxis: Heparin drip GI Prophylaxis: Protonix PO Designated medical POA if patient is not able to make medical decisions for themselves: Daughter Objective - Vital Signs Vital signs: Vital Signs Temp 97.3 F L 12/12/23 08:41 Pulse 95 12/12/23 08:41 Resp 12/12/23 08:41 BP 121/69 12/12/23 08:41 Pulse Ox 93 L 12/12/23 08:41 FiO2 12/12/23 08:11 Intake & Output 12/11/23 12/12/23 12/12/23 18:59 06:59 18:59 Intake Total 240 240 Output Total 370 Balance -130 240 Weight 87 kg Intake: Oral 240 240 Output: Urine 370 Other: Voiding Method Urinal Toilet Toilet # Voids 1 # Bowel Movements 1 - Labs CBC & Chem 7: 12/11/23 10:04 12/11/23 10:04 Labs: Abnormal Lab Results - Last 24 Hours (Table) 12/11/23 12/11/23 12/12/23 Range/Units 16:33 19:53 06:14 ABG pH (7.35-7.45) ABG pCO2 (35-45) mmHg ABG HCO3 (21-25) mmol/L POC Glucose (mg/dL) 306 H 281 H 248 H (70-110) mg/dL 12/12/23 12/12/23 Range/Units 09:40 11:29 ABG pH 7.33 L (7.35-7.45) ABG pCO2 34 L (35-45) mmHg ABG HCO3 18 L (21-25) mmol/L POC Glucose (mg/dL) 282 H (70-110) mg/dL
[2023-12-12] MEDS: SODIUM BICARBONATE TAB 650 MG TAB PO SCH (12:20)
[2023-12-12] MEDS: FUROSEMIDE 10 MG/ML 10 ML VIAL IV STA (12:21)
--- NOTE | 2023-12-12 12:33 | P.PN ---
Subjective HISTORY OF PRESENT ILLNESS: The patient is an 83-year-old male, followed by Dr. Nelson who presents with symptoms of chest discomfort. He has a known history of CAD underwent stenting of the LAD in September [address] Remy and subsequently was readmitted about a week after with acute thrombosis and underwent angioplasty and thrombectomy. He underwent repeat cardiac catheterization in August and was found to have totally occluded LAD with distal left main disease but was felt to be a poor candidate for any surgical intervention. He presents with symptoms of chest discomfort and dyspnea at rest yesterday, he is pain-free at the time of my evaluation. He usually has exertional angina pectoris with dyspnea on exertion. His activity is limited. He has evidence of cardiomyopathy with segmental wall motion abnormality consistent with his initial presentation with myocardial infarction. He has no significant PND, orthopnea or peripheral edema. He denies any palpitations, dizziness or syncope. His colitis factors are positive for diabetes hyperlipidemia. Medications: Aspirin, Plavix 75 mg daily, Lipitor 80 mg daily, Jardiance 25 mg daily, insulin, Prilosec, Coreg 6.25 mg twice a day, losartan 12.5 mg daily, Synthroid, furosemide 40 mg daily, Pulmicort, Proscar, Cymbalta, Flomax 12/07/2023 Patient examined this morning at the bedside. Patient denies any further episodes of chest pain or pressure. He denies any shortness of breath. He remains on IV heparin. Repeat troponin this morning 2.550. Kidney function remains poor with a creatinine of 2.12. Patient's blood pressures have been on the low side with a systolic between 8090. 12/08/2023 Patient examined this morning at the bedside. Patient denies any chest pain or pressure. He denies any shortness of breath. He remains on IV heparin. Creatinine today remains elevated at 2.08. Most recent blood pressure 114/62. 12/11/2023 Patient is status attempted catheterization with Dr. Nelson on 12/09/2023. Dr. Nelson had difficulty obtaining access and his cardiac catheterization was canceled. He underwent repeat cardiac catheterization yesterday with Dr. Jany dickinson with PCI of left main and ramus. Patient was hypotensive during the procedure. Blood pressures have improved. He did have 2 episodes of chest pain this morning that was relieved with nitro. No chest pain at the time of examination. Creatinine is up to 2.49 today. 12/12/2023 Patient examined this morning at the bedside. Patient denies chest pain or pressure. He reports mild shortness of breath. Chest x-ray completed revealed small right pleural effusion with cardiomegaly and pulmonary vascular congestion. Kidney function from this morning is currently pending. Patient was started on midodrine yesterday with improvement in blood pressures. Most recent blood pressure 121/69. PHYSICAL EXAM: VITAL SIGNS: Reviewed. GENERAL: Well-developed in no acute distress. NECK: Supple. No JVD or thyromegaly LUNGS: Respirations even and unlabored. Lungs diminished bilaterally HEART: Regular rate and rhythm. S1 and S2 heard. Systolic murmur noted EXTREMITIES: Normal range of motion. No clubbing or cyanosis. Peripheral pulses intact. Trace lower extremity edema ASSESSMENT: Unstable angina/NSTEMI, s/p stenting of left main and ramus Coronary artery disease with previous stenting of the LAD, September 2022, complicated by acute thrombosis requiring angioplasty and thrombectomy Status post repeat cardiac catheterization, 08/2023, revealing totally occluded LAD with distal left main disease, felt to be a poor candidate for surgical intervention Ischemic cardiomyopathy, EF 35 to 40% Mild acute on chronic heart failure with reduced EF Acute kidney injury Chronic kidney disease Metabolic acidosis Hypotension Hyperlipidemia Diabetes Hyponatremia PLAN: Continue current cardiac medications Coreg and Imdur discontinued secondary to hypotension Nephrology has been consulted. Patient started on oral bicarb. Awaiting kidney function from this morning Give one-time dose of IV Lasix 80 mg Further recommendations pending patient course Nurse practitioner note has been reviewed by physician. Signing provider agrees with the documented findings, assessment, and plan of care documented by SPA DIRECTOR as a scribe. Objective - Vital Signs Vital signs: Vital Signs Temp 97.3 F L 12/12/23 08:41 Pulse 95 12/12/23 08:41 Resp 21 12/12/23 08:41 BP 121/69 12/12/23 08:41 Pulse Ox 93 L 12/12/23 08:41 FiO2 21 12/12/23 08:11 Intake & Output 12/11/23 12/12/23 12/12/23 18:59 06:59 18:59 Intake Total 240 240 Output Total 370 Balance -130 240 Weight 87 kg Intake: Oral 240 240 Output: Urine 370 Other: Voiding Method Urinal Toilet Toilet # Voids 1 # Bowel Movements 1 - Labs CBC & Chem 7: 12/11/23 10:04 12/11/23 10:04 Labs: Abnormal Lab Results - Last 24 Hours (Table) 12/11/23 12/11/23 12/12/23 Range/Units 16:33 19:53 06:14 ABG pH (7.35-7.45) ABG pCO2 (35-45) mmHg ABG HCO3 (21-25) mmol/L POC Glucose (mg/dL) 306 H 281 H 248 H (70-110) mg/dL 12/12/23 12/12/23 Range/Units 09:40 11:29 ABG pH 7.33 L (7.35-7.45) ABG pCO2 34 L (35-45) mmHg ABG HCO3 18 L (21-25) mmol/L POC Glucose (mg/dL) 282 H (70-110) mg/dL
[2023-12-12 12:58] LABS: Basophils % (A) 0 %; Eosinophils # (A) 0.1 k/uL (0-0.7); Eosinophils % (A) 2 %; HCT 33.1 % (39.0-53.0); HGB 10.7 gm/dL (13.0-17.5); Lymphocytes # (A) 0.6 k/uL (1.0-4.8); Lymphocytes % (A) 10 %; MCH 29.1 pg (25.0-35.0); MCHC 32.4 g/dL (31.0-37.0); MCV 89.6 fL (80.0-100.0); Mean Platelet Volume 9.4; Monocytes # (A) 0.5 k/uL (0-1.0); Monocytes % (A) 7 %; Neutrophils # (A) 5.3 k/uL (1.3-7.7); Neutrophils % (A) 79 %; Platelet Count 115 k/uL (150-450); RBC 3.69 m/uL (4.30-5.90); RDW 15.3 % (11.5-15.5); WBC 6.7 k/uL (3.8-10.6)
[2023-12-12 13:18] LABS: African American GFR (CKD) 17 (>60 ml/min/1.73 sqM); Anion Gap 14 mmol/L; Blood Urea Nitrogen 70 mg/dL (9-20); Calcium 8.5 mg/dL (8.4-10.2); Carbon Dioxide 15 mmol/L (22-30); Chloride 97 mmol/L (98-107); Glucose 230 mg/dL (74-99); Magnesium 2.5 mg/dL (1.6-2.3); Non-African American GFR(CKD) 14 (>60 ml/min/1.73 sqM); Potassium 4.9 mmol/L (3.5-5.1); Sodium 126 mmol/L (137-145)
--- NOTE | 2023-12-12 15:31 | P.PN ---
Subjective Progress Note Date: 12/12/23 Principal diagnosis: Reason for follow-up is fever possible pneumonia Patient is a 83-year-old male past medical history significant for diabetes mellitus hypertension NM CVA TIA presenting to the hospital with chest pain shortness of breath also noticed to be febrile prompting this consultation. On today's evaluation that is 12/12/2023, Patient is afebrile patient is currently on 3 L nasal cannula oxygen and complaining of some shortness of breath, the patient denies any chest pain or cough, the patient denies any nausea vomiting did not have any abdominal pain and no diarrhea. Patient white count is 6.7, creatinine is 3.72 Objective - Vital Signs Vital signs: Vital Signs Temp 97.4 F L 12/12/23 12:00 Pulse 84 12/12/23 12:00 Resp 22 12/12/23 12:00 BP 111/68 12/12/23 12:00 Pulse Ox 97 12/12/23 12:00 FiO2 21 12/12/23 08:11 Intake & Output 12/11/23 12/12/23 12/12/23 18:59 06:59 18:59 Intake Total 240 358 Output Total 370 Balance -130 358 Weight 87 kg Intake: Oral 240 358 Output: Urine 370 Other: Voiding Method Urinal Toilet Toilet # Voids 1 # Bowel Movements 1 - Exam GENERAL DESCRIPTION: An elderly male lying in bed in no distress RESPIRATORY SYSTEM: Unlabored breathing , decreased breath sounds at bases HEART: S1 S2 regular rate and rhythm , ABDOMEN: Soft , no tenderness EXTREMITIES: No edema feet - Labs CBC & Chem 7: 12/12/23 12:28 12/12/23 12:28 Labs: Abnormal Lab Results - Last 24 Hours (Table) 12/11/23 12/11/23 12/12/23 Range/Units 16:33 19:53 06:14 RBC (4.30-5.90) m/uL Hgb (13.0-17.5) gm/dL Hct (39.0-53.0) % Plt Count (150-450) k/uL Lymphocytes # (1.0-4.8) k/uL ABG pH (7.35-7.45) ABG pCO2 (35-45) mmHg ABG HCO3 (21-25) mmol/L Sodium (137-145) mmol/L Chloride (98-107) mmol/L Carbon Dioxide (22-30) mmol/L BUN (9-20) mg/dL Creatinine (0.66-1.25) mg/dL Glucose (74-99) mg/dL POC Glucose (mg/dL) 306 H 281 H 248 H (70-110) mg/dL Magnesium (1.6-2.3) mg/dL 12/12/23 12/12/23 12/12/23 Range/Units 09:40 11:29 12:28 RBC 3.69 L (4.30-5.90) m/uL Hgb 10.7 L (13.0-17.5) gm/dL Hct 33.1 L (39.0-53.0) % Plt Count 115 L (150-450) k/uL Lymphocytes # 0.6 L (1.0-4.8) k/uL ABG pH 7.33 L (7.35-7.45) ABG pCO2 34 L (35-45) mmHg ABG HCO3 18 L (21-25) mmol/L Sodium (137-145) mmol/L Chloride (98-107) mmol/L Carbon Dioxide (22-30) mmol/L BUN (9-20) mg/dL Creatinine (0.66-1.25) mg/dL Glucose (74-99) mg/dL POC Glucose (mg/dL) 282 H (70-110) mg/dL Magnesium (1.6-2.3) mg/dL 12/12/23 Range/Units 12:28 RBC (4.30-5.90) m/uL Hgb (13.0-17.5) gm/dL Hct (39.0-53.0) % Plt Count (150-450) k/uL Lymphocytes # (1.0-4.8) k/uL ABG pH (7.35-7.45) ABG pCO2 (35-45) mmHg ABG HCO3 (21-25) mmol/L Sodium 126 L (137-145) mmol/L Chloride 97 L (98-107) mmol/L Carbon Dioxide 15 L (22-30) mmol/L BUN 70 H (9-20) mg/dL Creatinine 3.72 H (0.66-1.25) mg/dL Glucose 230 H (74-99) mg/dL POC Glucose (mg/dL) (70-110) mg/dL Magnesium 2.5 H (1.6-2.3) mg/dL Microbiology - Last 24 Hours (Table) 12/07/23 00:19 Blood Culture - Final Blood Assessment and Plan (1) Fever and chills Current Visit: Yes Status: Acute Code(s): R50.9 - FEVER, UNSPECIFIED SNOMED Code(s): 687635457 Plan: 1patient presented hospital with chest pain noticed to have a fever on admission and another fever this morning did have predominantly respiratory symptoms with a question of possible pneumonia versus intra-abdominal pathology, but we did have a negative UA no evidence of any cellulitis or joint swelling 2-patient with renal insufficiency and noticed to have slight worsening of his kidney function nephrology has been consulted 3-patient did have elevated CRP and procalcitonin CT abdominal pelvis with oral contrast did not show any intra-abdominal pathology concerning for possible compressive atelectasis/pneumonia 4-patient fever has resolved and white count has been normal, the patient blood cultures so far negative we will continue with the current treatment of Rocephin and monitor clinical course closely Dictation was produced using [employer] dictation software. please excuse any grammatical, word or spelling errors. Time with Patient: Less than 30
[2023-12-12] MEDS: SODIUM BICARB 8.4% 50 ML SYR (1 MEQ/ML) IV STA (15:54)
[2023-12-12 16:22] LABS: Glucose,Whole Blood 250 mg/dL (70-110)
[2023-12-12 19:49] LABS: Glucose,Whole Blood 173 mg/dL (70-110)
[2023-12-12 20:43] LABS: Glucose,Whole Blood 153 mg/dL (70-110)
[2023-12-12 21:37] LABS: HCT 34.3 % (39.0-53.0); MCH 28.9 pg (25.0-35.0); MCHC 32.1 g/dL (31.0-37.0); Mean Platelet Volume 10.4; Platelet Count 124 k/uL (150-450); RBC 3.81 m/uL (4.30-5.90); RDW 15.4 % (11.5-15.5); WBC 10.2 k/uL (3.8-10.6)
[2023-12-12 21:49] LABS: ALT 80 U/L (4-49); AST 121 U/L (17-59); African American GFR (CKD) 16 (>60 ml/min/1.73 sqM); Albumin 2.8 g/dL (3.5-5.0); Alkaline Phosphatase 231 U/L (38-126); Anion Gap 13 mmol/L; Blood Urea Nitrogen 77 mg/dL (9-20); Calcium 8.9 mg/dL (8.4-10.2); Carbon Dioxide 22 mmol/L (22-30); Chloride 95 mmol/L (98-107); Glucose 188 mg/dL (74-99); Magnesium 2.6 mg/dL (1.6-2.3); Non-African American GFR(CKD) 14 (>60 ml/min/1.73 sqM); Potassium 3.6 mmol/L (3.5-5.1); Sodium 130 mmol/L (137-145); Total Bilirubin 0.6 mg/dL (0.2-1.3); Total Protein 5.6 g/dL (6.3-8.2)
--- NOTE | 2023-12-12 21:55 | XR ---
EXAMINATION TYPE: XR chest 1V portable DATE OF EXAM: 12/12/2023 9:50 PM CLINICAL INDICATION:Male, 83 years old with history of ETT placement, s/p code blue; [facility] COMPARISON: Chest radiographs from 12/11/2023 TECHNIQUE: XR chest 1V portable Frontal view of the chest. FINDINGS: Lungs/Pleura: Hazy airspace opacities are noted overlying the right lung with patchy opacities involv ing the left lung base. There is a small right pleural effusion Pulmonary vascularity: Pulmonary vascular congestion. Heart/mediastinum: Cardiomediastinal silhouette is unremarkable. Musculoskeletal: No acute osseous pathology. Other findings: None Lines/Tubes: Endotracheal tube is present extending into the right main bronchus. IMPRESSION: 1. Endotracheal tube extending to the right main bronchus, retraction of approximately 4 cm is recomm ended. 2. Small right layering pleural effusion. 3. Patchy left lung base airspace disease, may represent infectious/inflammatory process.
[2023-12-12 22:30] LABS: ABG Base Excess -2.9 mmol/L; ABG HCO3 23 mmol/L (21-25); ABG PCO2 40 mmHg (35-45); ABG PH 7.36 (7.35-7.45); ABG PO2 102 mmHg (83-108); ABG TCO2 24 mmol/L (19-24); Allen Test Performed? Yes
[2023-12-12] MEDS: POTASSIUM CHLORIDE 10 MEQ in WATER FOR INJECTION 1 100ML.BAG IVPB SCH (23:07)
[2023-12-12] MEDS: NOREPINEPHRINE 32 MG in SODIUM CHLORIDE 0.9% 218 ML IV SCH (23:30)
--- NOTE | 2023-12-12 23:43 | XR ---
EXAMINATION TYPE: XR chest 1V portable DATE OF EXAM: 12/12/2023 CLINICAL HISTORY: OG tube placement. TECHNIQUE: Single AP portable semiupright view of the chest is obtained. COMPARISON: Chest x-ray from earlier today and older studies FINDINGS: New orogastric tube projects below diaphragm. Improved positioning of endotracheal tube te rminating in the aortic knob level after repositioning now terminating just above adolfo. Consider pu lling back 3 cm to be more ideal position. Persistent small to moderate-sized right pleural effusion. Persistent multifocal bilateral opacities. Cardiac silhouette size is stable and mildly enlarged. Osseous structures are intact. IMPRESSION: 1. New orogastric tube satisfactory in position. 2. Improved but still low positioning of endotracheal tube, advise pulling back 3.0 cm. 3. Persistent mild cardiomegaly with small to moderate-sized right pleural effusion and bilateral mul tifocal edema and/or acute infiltrates noted.
--- NOTE | 2023-12-13 01:30 | P.EN ---
CODE BLUE note Activated at 2033. Arrived at the scene shortly after. The patient was admitted to the hospital for non-ST elevation HI and CHF exacerbation was noted to have developed asystole on telemetry. The RN found the patient to be unresponsive and pulseless and ACLS protocol was immediately initiated with CPR. The patient was noted to be in V-fib once and was shocked with 120 J. He was also given epinephrine IV push x 5, sodium bicarbonate IV push x 2, and calcium chloride IV push x 1. ROSC was subsequently attained at 2049 and the patient was transferred to the medical ICU. The patient shortly after developed asystole again at 2106. He was given epinephrine IV push x 4 and sodium bicarbonate x 1 with persistent asystole. ROSC was achieved at 2114. Laboratory evaluation was ordered and a right femoral central line was placed. Please refer to the code sheet for further details. Case was discussed with the patient's daughter in person. Time spent providing critical care for this patient: 90 minutes
--- NOTE | 2023-12-13 01:39 | P.PCN ---
Date of Procedure: 12/12/23 Preoperative Diagnosis: Cardiac arrest Procedure(s) Performed: R femoral central-line placement Description of Procedure: The patient was placed in a dependent position with the right femoral region exposed. The area was sterilized with ChloraPrep and subsequently draped in a sterile fashion. The femoral artery was palpated and avoided and the finder needle was placed medially to the artery and inserted until the syringe was seen to fill with blood. The needle was initially held in place while the guidewire was advanced using the Seldinger technique. The needle was then removed and an incision was made in the skin at the entrance of the wire. The dilator was subsequently advanced over the guidewire and was removed following which the triple-lumen catheter was advanced over the guidewire into the appropriate position. The guidewire was then removed and the ports were all aspirated showing good blood return and subsequently flushed with normal saline. The catheter was stabilized and sutured in place and a Bioclusive dressing was placed with Tegaderm. Supervised by Dr Dario Arredondo MD.
--- NOTE | 2023-12-13 04:43 | P.PN ---
Subjective HISTORY OF PRESENT ILLNESS: The patient is an 83-year-old male, followed by Dr. Nelson who presents with symptoms of chest discomfort. He has a known history of CAD underwent stenting of the LAD in September [address] Remy and subsequently was readmitted about a week after with acute thrombosis and underwent angioplasty and thrombectomy. He underwent repeat cardiac catheterization in August and was found to have totally occluded LAD with distal left main disease but was felt to be a poor candidate for any surgical intervention. He presents with symptoms of chest discomfort and dyspnea at rest yesterday, he is pain-free at the time of my evaluation. He usually has exertional angina pectoris with dyspnea on exertion. His activity is limited. He has evidence of cardiomyopathy with segmental wall motion abnormality consistent with his initial presentation with myocardial infarction. He has no significant PND, orthopnea or peripheral edema. He denies any palpitations, dizziness or syncope. His colitis factors are positive for diabetes hyperlipidemia. Medications: Aspirin, Plavix 75 mg daily, Lipitor 80 mg daily, Jardiance 25 mg daily, insulin, Prilosec, Coreg 6.25 mg twice a day, losartan 12.5 mg daily, Synthroid, furosemide 40 mg daily, Pulmicort, Proscar, Cymbalta, Flomax 12/07/2023 Patient examined this morning at the bedside. Patient denies any further episodes of chest pain or pressure. He denies any shortness of breath. He remains on IV heparin. Repeat troponin this morning 2.550. Kidney function remains poor with a creatinine of 2.12. Patient's blood pressures have been on the low side with a systolic between 8090. 12/08/2023 Patient examined this morning at the bedside. Patient denies any chest pain or pressure. He denies any shortness of breath. He remains on IV heparin. Creatinine today remains elevated at 2.08. Most recent blood pressure 114/62. 12/11/2023 Patient is status attempted catheterization with Dr. Nelson on 12/09/2023. Dr. Nelson had difficulty obtaining access and his cardiac catheterization was canceled. He underwent repeat cardiac catheterization yesterday with Dr. Jany dickinson with PCI of left main and ramus. Patient was hypotensive during the procedure. Blood pressures have improved. He did have 2 episodes of chest pain this morning that was relieved with nitro. No chest pain at the time of examination. Creatinine is up to 2.49 today. 12/12/2023 Patient examined this morning at the bedside. Patient denies chest pain or pressure. He reports mild shortness of breath. Chest x-ray completed revealed small right pleural effusion with cardiomegaly and pulmonary vascular congestion. Kidney function from this morning is currently pending. Patient was started on midodrine yesterday with improvement in blood pressures. Most recent blood pressure 121/69. 12/12 Patient seen and examined. Patient apparently had been feeling okay eating dinner and not much distress yesterday. He did however develop a wider complex rhythm and then went asystole for approximately 50 seconds and was noted to be unresponsive and CPR initiated. Patient eventually had 1 episode of V. fib and was defibrillated once. He was intubated and sedated and transferred to ICU. He was placed on norepinephrine currently at 0.18. Additionally requiring 90% FiO2 with a PEEP of 5 and does have diffuse increased vascular congestion, right greater than left pleural effusion. He has not been making much urine. On presenting to ICU patient had additional episode of asystole and cardiac arrest requiring approximately 8 minutes of CPR with epinephrine and bicarb given. During initial code patient additionally was given calcium. He had repeat blood work which showed Sodium 130, creatinine 3.8, potassium 3.6, lactic acid 3.9, 2.4, AST 121, ALT 80, troponin 1.7. EKG not showing any significant changes from previous. PHYSICAL EXAM: VITAL SIGNS: Reviewed. GENERAL: Well-developed in no acute distress. NECK: Supple. No JVD or thyromegaly LUNGS: Respirations even and unlabored. Lungs diminished bilaterally HEART: Regular rate and rhythm. S1 and S2 heard. Systolic murmur noted EXTREMITIES: Normal range of motion. No clubbing or cyanosis. Peripheral pulses intact. Trace lower extremity edema ASSESSMENT: Unstable angina/NSTEMI, s/p stenting of left main and ramus Coronary artery disease with previous stenting of the LAD, September 2022, complicated by acute thrombosis requiring angioplasty and thrombectomy Status post repeat cardiac catheterization, 08/2023, revealing totally occluded LAD with distal left main disease, felt to be a poor candidate for surgical intervention Ischemic cardiomyopathy, EF 35 to 40% Mild acute on chronic heart failure with reduced EF Acute kidney injury Chronic kidney disease Metabolic acidosis Hypotension Hyperlipidemia Diabetes Hyponatremia Cardiac arrest Asystole for 50 seconds PLAN: Patient unfortunately had a cardiac arrest with asystole. Patient has significant volume overload, heart failure and unclear if primary event was respiratory versus asystole. Additionally patient has acute kidney injury and multiple metabolic arrangements however potassium on most recent blood work relatively normal. Check repeat 2-D echo. Patient with only remaining vessels left main and ramus/circumflex which was stented on Thursday and RCA with intermediate disease to the RCA. EKG not showing any major changes, no signific ant ST elevation. Given multiple derangements, patient unstable and kidney failure we will trend troponins and check 2-D echo. Depending on clinical status and family's wishes further recommendations to follow. Prognosis guarded appears poor. Objective - Vital Signs Vital signs: Vital Signs Temp 98.1 F 12/13/23 00:00 Pulse 98 12/13/23 03:00 Resp 23 12/13/23 03:00 BP 112/55 12/13/23 03:00 Pulse Ox 96 12/13/23 03:00 FiO2 90 12/13/23 04:30 Intake & Output 12/12/23 12/12/23 12/13/23 06:59 18:59 06:59 Intake Total 358 317.564 Output Total 200 200 Balance 158 117.564 Intake: IV 200 Potassium Chloride 10 meq 200 In Water For Injection 1 100ml.bag @ 100 mls/hr IVPB Q1H [facility] Rx#: [id number] Intake, IV Titration 117.564 Amount Norepinephrine 32 mg In 4.464 Sodium Chloride 0.9% 218 ml @ 0.03 MCG/KG/MIN 1. 223 mls/hr IV .Q24H [facility] Rx#:[id number] propofoL 1,000 mg In 113.100 Empty Bag 1 bag @ 15 MCG/ KG/MIN 7.83 mls/hr IV . [id number] [facility] Rx#:[id number] Oral 358 Output: Urine 200 200 Other: Voiding Method Toilet Toilet Indwelling Catheter # Voids 1 # Bowel Movements 1 - Labs CBC & Chem 7: 12/12/23 21:05 12/12/23 21:05 Labs: Abnormal Lab Results - Last 24 Hours (Table) 12/12/23 12/12/23 12/12/23 Range/Units 06:14 09:40 11:29 RBC (4.30-5.90) m/uL Hgb (13.0-17.5) gm/dL Hct (39.0-53.0) % Plt Count (150-450) k/uL Lymphocytes # (1.0-4.8) k/uL ABG pH 7.33 L (7.35-7.45) ABG pCO2 34 L (35-45) mmHg ABG HCO3 18 L (21-25) mmol/L ABG O2 Saturation (94-97) % Sodium (137-145) mmol/L Chloride (98-107) mmol/L Carbon Dioxide (22-30) mmol/L BUN (9-20) mg/dL Creatinine (0.66-1.25) mg/dL Glucose (74-99) mg/dL POC Glucose (mg/dL) 248 H 282 H (70-110) mg/dL Plasma Lactic Acid Mahesh (0.7-2.0) mmol/L Magnesium (1.6-2.3) mg/dL AST (17-59) U/L ALT (4-49) U/L Alkaline Phosphatase (38-126) U/L Troponin I (0.000-0.034) ng/mL Total Protein (6.3-8.2) g/dL Albumin (3.5-5.0) g/dL 12/12/23 12/12/23 12/12/23 Range/Units 12:28 12:28 16:09 RBC 3.69 L (4.30-5.90) m/uL Hgb 10.7 L (13.0-17.5) gm/dL Hct 33.1 L (39.0-53.0) % Plt Count 115 L (150-450) k/uL Lymphocytes # 0.6 L (1.0-4.8) k/uL ABG pH (7.35-7.45) ABG pCO2 (35-45) mmHg ABG HCO3 (21-25) mmol/L ABG O2 Saturation (94-97) % Sodium 126 L (137-145) mmol/L Chloride 97 L (98-107) mmol/L Carbon Dioxide 15 L (22-30) mmol/L BUN 70 H (9-20) mg/dL Creatinine 3.72 H (0.66-1.25) mg/dL Glucose 230 H (74-99) mg/dL POC Glucose (mg/dL) 250 H (70-110) mg/dL Plasma Lactic Acid Mahesh (0.7-2.0) mmol/L Magnesium 2.5 H (1.6-2.3) mg/dL AST (17-59) U/L ALT (4-49) U/L Alkaline Phosphatase (38-126) U/L Troponin I (0.000-0.034) ng/mL Total Protein (6.3-8.2) g/dL Albumin (3.5-5.0) g/dL 12/12/23 12/12/23 12/12/23 Range/Units 19:47 20:36 21:05 RBC 3.81 L (4.30-5.90) m/uL Hgb 11.0 L (13.0-17.5) gm/dL Hct 34.3 L (39.0-53.0) % Plt Count 124 L (150-450) k/uL Lymphocytes # (1.0-4.8) k/uL ABG pH (7.35-7.45) ABG pCO2 (35-45) mmHg ABG HCO3 (21-25) mmol/L ABG O2 Saturation (94-97) % Sodium (137-145) mmol/L Chloride (98-107) mmol/L Carbon Dioxide (22-30) mmol/L BUN (9-20) mg/dL Creatinine (0.66-1.25) mg/dL Glucose (74-99) mg/dL POC Glucose (mg/dL) 173 H 153 H (70-110) mg/dL Plasma Lactic Acid Mahesh (0.7-2.0) mmol/L Magnesium (1.6-2.3) mg/dL AST (17-59) U/L ALT (4-49) U/L Alkaline Phosphatase (38-126) U/L Troponin I (0.000-0.034) ng/mL Total Protein (6.3-8.2) g/dL Albumin (3.5-5.0) g/dL 12/12/23 12/12/23 12/12/23 Range/Units 21:05 21:05 22:30 RBC (4.30-5.90) m/uL Hgb (13.0-17.5) gm/dL Hct (39.0-53.0) % Plt Count (150-450) k/uL Lymphocytes # (1.0-4.8) k/uL ABG pH (7.35-7.45) ABG pCO2 (35-45) mmHg ABG HCO3 (21-25) mmol/L ABG O2 Saturation 98.0 H (94-97) % Sodium 130 L (137-145) mmol/L Chloride 95 L (98-107) mmol/L Carbon Dioxide (22-30) mmol/L BUN 77 H (9-20) mg/dL Creatinine 3.86 H (0.66-1.25) mg/dL Glucose 188 H (74-99) mg/dL POC Glucose (mg/dL) (70-110) mg/dL Plasma Lactic Acid Mahesh (0.7-2.0) mmol/L Magnesium 2.6 H (1.6-2.3) mg/dL AST 121 H (17-59) U/L ALT 80 H (4-49) U/L Alkaline Phosphatase 231 H (38-126) U/L Troponin I 1.730 H* (0.000-0.034) ng/mL Total Protein 5.6 L (6.3-8.2) g/dL Albumin 2.8 L (3.5-5.0) g/dL 12/12/23 12/13/23 Range/Units 23:02 01:52 RBC (4.30-5.90) m/uL Hgb (13.0-17.5) gm/dL Hct (39.0-53.0) % Plt Count (150-450) k/uL Lymphocytes # (1.0-4.8) k/uL ABG pH (7.35-7.45) ABG pCO2 (35-45) mmHg ABG HCO3 (21-25) mmol/L ABG O2 Saturation (94-97) % Sodium (137-145) mmol/L Chloride (98-107) mmol/L Carbon Dioxide (22-30) mmol/L BUN (9-20) mg/dL Creatinine (0.66-1.25) mg/dL Glucose (74-99) mg/dL POC Glucose (mg/dL) (70-110) mg/dL Plasma Lactic Acid Mahesh 3.9 H* 2.4 H* (0.7-2.0) mmol/L Magnesium (1.6-2.3) mg/dL AST (17-59) U/L ALT (4-49) U/L Alkaline Phosphatase (38-126) U/L Troponin I (0.000-0.034) ng/mL Total Protein (6.3-8.2) g/dL Albumin (3.5-5.0) g/dL Microbiology - Last 24 Hours (Table) 12/07/23 00:19 Blood Culture - Final Blood
[2023-12-13 05:07] LABS: HGB 10.9 gm/dL (13.0-17.5); MCH 28.5 pg (25.0-35.0); MCHC 33.1 g/dL (31.0-37.0); MCV 86.1 fL (80.0-100.0); Mean Platelet Volume 9.8; Platelet Count 147 k/uL (150-450); RBC 3.83 m/uL (4.30-5.90); RDW 15.4 % (11.5-15.5); WBC 9.9 k/uL (3.8-10.6)
[2023-12-13 05:16] LABS: African American GFR (CKD) 14 (>60 ml/min/1.73 sqM); Anion Gap 13 mmol/L; Blood Urea Nitrogen 80 mg/dL (9-20); Calcium 8.6 mg/dL (8.4-10.2); Carbon Dioxide 17 mmol/L (22-30); Chloride 97 mmol/L (98-107); Glucose 129 mg/dL (74-99); Magnesium 2.3 mg/dL (1.6-2.3); Non-African American GFR(CKD) 12 (>60 ml/min/1.73 sqM); Potassium 4.3 mmol/L (3.5-5.1); Sodium 127 mmol/L (137-145)
[2023-12-13 05:56] LABS: ABG Base Excess -2.2 mmol/L; ABG HCO3 22 mmol/L (21-25); ABG PCO2 34 mmHg (35-45); ABG PH 7.43 (7.35-7.45); ABG PO2 84 mmHg (83-108); ABG TCO2 23 mmol/L (19-24); Allen Test Performed? Yes
[2023-12-13 06:00] LABS: Band Neutrophils % 17 %; Lymphocytes # (M) 0.99 k/uL (1.0-4.8); Monocytes # (M) 0.59 k/uL (0-1.0); Neutrophils % (M) 67 %; Nucleated Red Blood Cells 0 /100 WBC (0-0); RBC Morphology Normal; Total Cells Counted 100
--- NOTE | 2023-12-13 06:40 | XR ---
EXAMINATION TYPE: XR chest 1V portable DATE OF EXAM: 12/13/2023 COMPARISON: 12/12/2023 HISTORY: Tube placement TECHNIQUE: Single frontal view of the chest is obtained. FINDINGS: There is an NG tube approximately 1.7 cm above the adolfo. There is an NG tube within the stomach. There is been no change in the moderate right pleural effusion. There is a persistent retrocardiac op acity. The pulmonary vasculature remains moderately congested. There is no pneumothorax. IMPRESSION: 1. ET tube 1.7 cm above the adolfo. NG tube within the stomach. 2. No change in the bilateral opacities, effusions and pulmonary vascular congestion.
[2023-12-13 06:41] LABS: Glucose,Whole Blood 144 mg/dL (70-110)
[2023-12-13] MEDS: PIPERACILLIN-TAZOBACTAM 3.375 GM in SODIUM CHLORIDE 0.9% 100 ML IVPB SCH (10:33)
[2023-12-13] MEDS: CHLORHEXIDINE GLUCONATE 15 ML CUP MUCOUS MEM SCH (10:33)
[2023-12-13] MEDS: MIDODRINE 5 MG TAB PO SCH (10:36)
[2023-12-13] MEDS: SODIUM BICARB 8.4% 50 ML SYR (1 MEQ/ML) IV STA (10:37)
--- NOTE | 2023-12-13 10:41 | P.PN ---
Subjective Progress Note Date: 12/13/23 Pt had jerrell curran called overnight twice, mostly in asystole, but was in VFib once with one shock and ROSC. Gen: In NAD, non-toxic HEENT: normocephalic, atraumatic, hearing acuity is intant, mucous membranes moist CVS: perfusing all extremities well, no pitting edema, Respiratory: symmetric chest expansion, no accessory muscle use, GI: soft, NTTP, ND, : no suprapubic tenderness, no CVA tenderness MSK/Derm: no rashes, cyanosis Neuro: CN II-XII intact, no motor weakness, Psych: cooperative, euthymic mood, judgment and insight is intact Hospital course: 83-year-old male with PMH of CAD, history of CVA, diabetes mellitus, chronic kidney disease, hypertension, BPH, hypothyroidism presents the ED for chest pain. Chest pain woke him up at 3AM. Chest pain mid sternal, described as rumbling, radiating to both arms. Associated symptoms include diaphoresis. Chest pain was relieved by sublingual nitroglycerin. Of note, also reports fevers as high as 101.3F over the past 3 days. No cough, rash, urinary or bowel symptoms. In the ED, he underwent extensive evaluation. BP 98/61, HR 84, RR 20, T 102.6F, 100% on 1 LNC. CBC, coag panel and CMP was done significant for lymphocyte count of 0.5, sodium 1:30, bicarb 18, BUN 34, creatinine 1.8, glucose 184, calcium 8.2, alk phos 167. Magnesium 2.2. Troponin 0.028. Flu, RSV, COVID-19 negative. EKG showed sinus rhythm with left bundle branch block. Chest x-ray showed small right pleural effusion and pulmonary vascular congestion. Patient is admitted for chest pain, rule out acute coronary syndrome and cardiology consultation. Workup from previous admission was reviewed. Cardiac cath 09/04/23 showed 70-80% distal left main, 100% ostial LAD with collateral, 80-90% ostial PDA, 80% proximal OM1. He has been evaluated by CT surgery in the past deemed to be poor surgical candidate for revascularization. Echocardiogram 09/01/23 showed EF 35-40% with anteroseptal, anterior wall hypokinesia, mild aortic stenosis. 12/06 Troponin increased to 2.55 this morning. Started on a Heparin drip at 12 units/kg/hr. Cardiology note reviewed, plans for cardiac cath tomorrow, NPO after midnight. 12/07 Tmax 101.7. Patient reports feeling sweaty and reports a headache. No chest pain. POC glucose 65-218 over the past 24H. Levemir discontinued due to hypoglycemia. He is NPO for possible cath, maintained on heparin drip at 8.11 units/kg/hr. Renal US is negative for obstructive uropathy. 12/08 Patient was seen and examined. Continues to have low grade fevers overnight. No chest pain. Started on NS at 50 cc/hr yesterday to improve renal function by Cardiology. Levemir restarted at lowered dose of 10 units QD for hyperglycemia. ID consulted, CT AP, Pro-yusef, CRP, repeat UA ordered. CT AP shows right renal calculus 3 mm, small right pleural effusion with atelectasis. CRP 15.7. Procal 1.09. Started on Rocephin 2g IV QD and Azithromycin 500 mg PO QD for empiric treatment of PNA. APTT is 55.7. BMP Na 127, bicarb 17, BUN 33, Cr 1.69, glu 171, Ca 8.3. CBC Hg 11.5 Hct 35.7 Plt 125. Serum Osm 279. Hopeful plans for cardiac cath today. 12/09: Patient is noted to have had an attempt at left heart catheterization yesterday, however, access was difficult to establish. There will be a reattempt today. Assessment/plan: NSTEMI: -Troponins uptrending. -ASA 81 mg PO QD. Lipitor 80 mg PO QHS. Plavix 75 mg PO QD. Coreg 3.125 mg PO BID. -Plans for cardiac cath 12/09, s/p LUCY to Left Main -Heparin gtt discontinued -Cardiology on board. -On midodrine SIRS: Leukopenia, tachycardia, fever. -Unknown etiology. UA negative. -Flu RSV COVID negative. CRP and procal elevated. -Empirically started on Rocephin and Azithromycin for treatment of PNA. ID on board. ZOEY on CKD: Systolic CHF exacerbation with right pleural effusion and pulmonary vascular congestion: Hypervolemic Hyponatremia -Bumex 2mg IV once today -Nephrology to follow for possibility of dialysis -Renal US negative. Diabetes mellitus with hyperglycemia: -Highest POC glucose 285. -Hold levemir. ISS. -Accuchecks ACHS. Hypoglycemic precautions. Chronic conditions: history of CVA, chronic kidney disease, hypertension, BPH, hypothyroidism CODE STATUS: FULL CODE. DVT Prophylaxis: none GI Prophylaxis: Protonix PO Designated medical POA if patient is not able to make medical decisions for themselves: Daughter Objective - Vital Signs Vital signs: Vital Signs Temp 99.1 F 12/13/23 08:00 Pulse 94 12/13/23 10:15 Resp 25 H 12/13/23 10:15 BP 95/41 12/13/23 10:15 Pulse Ox 97 12/13/23 10:15 FiO2 70 12/13/23 08:24 Intake & Output 12/12/23 12/13/23 12/13/23 18:59 06:59 18:59 Intake Total 358 344.848 10.589 Output Total 200 200 10 Balance 158 144.848 0.589 Weight 78.6 kg Intake: IV 200 Potassium Chloride 10 meq 200 In Water For Injection 1 100ml.bag @ 100 mls/hr IVPB Q1H [facility] Rx#: [id number] Intake, IV Titration 144.848 10.589 Amount Norepinephrine 32 mg In 31.748 10.589 Sodium Chloride 0.9% 218 ml @ 0.03 MCG/KG/MIN 1. 223 mls/hr IV .Q24H [facility] Rx#:[id number] propofoL 1,000 mg In 113.100 Empty Bag 1 bag @ 15 MCG/ KG/MIN 7.83 mls/hr IV . [id number] [facility] Rx#:[id number] Oral 358 Output: Urine 200 200 10 Other: Voiding Method Toilet Indwelling Catheter - Labs CBC & Chem 7: 12/13/23 04:40 12/13/23 04:40 Labs: Abnormal Lab Results - Last 24 Hours (Table) 12/12/23 12/12/23 12/12/23 Range/Units 11:29 12:28 12:28 RBC 3.69 L (4.30-5.90) m/uL Hgb 10.7 L (13.0-17.5) gm/dL Hct 33.1 L (39.0-53.0) % Plt Count 115 L (150-450) k/uL Neutrophils # (Manual) (1.3-7.7) k/uL Lymphocytes # 0.6 L (1.0-4.8) k/uL Lymphocytes # (Manual) (1.0-4.8) k/uL ABG pCO2 (35-45) mmHg ABG O2 Saturation (94-97) % Sodium 126 L (137-145) mmol/L Chloride 97 L (98-107) mmol/L Carbon Dioxide 15 L (22-30) mmol/L BUN 70 H (9-20) mg/dL Creatinine 3.72 H (0.66-1.25) mg/dL Glucose 230 H (74-99) mg/dL POC Glucose (mg/dL) 282 H (70-110) mg/dL Plasma Lactic Acid Mahesh (0.7-2.0) mmol/L Magnesium 2.5 H (1.6-2.3) mg/dL AST (17-59) U/L ALT (4-49) U/L Alkaline Phosphatase (38-126) U/L Troponin I (0.000-0.034) ng/mL Total Protein (6.3-8.2) g/dL Albumin (3.5-5.0) g/dL 12/12/23 12/12/23 12/12/23 Range/Units 16:09 19:47 20:36 RBC (4.30-5.90) m/uL Hgb (13.0-17.5) gm/dL Hct (39.0-53.0) % Plt Count (150-450) k/uL Neutrophils # (Manual) (1.3-7.7) k/uL Lymphocytes # (1.0-4.8) k/uL Lymphocytes # (Manual) (1.0-4.8) k/uL ABG pCO2 (35-45) mmHg ABG O2 Saturation (94-97) % Sodium (137-145) mmol/L Chloride (98-107) mmol/L Carbon Dioxide (22-30) mmol/L BUN (9-20) mg/dL Creatinine (0.66-1.25) mg/dL Glucose (74-99) mg/dL POC Glucose (mg/dL) 250 H 173 H 153 H (70-110) mg/dL Plasma Lactic Acid Mahesh (0.7-2.0) mmol/L Magnesium (1.6-2.3) mg/dL AST (17-59) U/L ALT (4-49) U/L Alkaline Phosphatase (38-126) U/L Troponin I (0.000-0.034) ng/mL Total Protein (6.3-8.2) g/dL Albumin (3.5-5.0) g/dL 12/12/23 12/12/23 12/12/23 Range/Units 21:05 21:05 21:05 RBC 3.81 L (4.30-5.90) m/uL Hgb 11.0 L (13.0-17.5) gm/dL Hct 34.3 L (39.0-53.0) % Plt Count 124 L (150-450) k/uL Neutrophils # (Manual) (1.3-7.7) k/uL Lymphocytes # (1.0-4.8) k/uL Lymphocytes # (Manual) (1.0-4.8) k/uL ABG pCO2 (35-45) mmHg ABG O2 Saturation (94-97) % Sodium 130 L (137-145) mmol/L Chloride 95 L (98-107) mmol/L Carbon Dioxide (22-30) mmol/L BUN 77 H (9-20) mg/dL Creatinine 3.86 H (0.66-1.25) mg/dL Glucose 188 H (74-99) mg/dL POC Glucose (mg/dL) (70-110) mg/dL Plasma Lactic Acid Mahesh (0.7-2.0) mmol/L Magnesium 2.6 H (1.6-2.3) mg/dL AST 121 H (17-59) U/L ALT 80 H (4-49) U/L Alkaline Phosphatase 231 H (38-126) U/L Troponin I 1.730 H* (0.000-0.034) ng/mL Total Protein 5.6 L (6.3-8.2) g/dL Albumin 2.8 L (3.5-5.0) g/dL 12/12/23 12/12/23 12/13/23 Range/Units 22:30 23:02 01:52 RBC (4.30-5.90) m/uL Hgb (13.0-17.5) gm/dL Hct (39.0-53.0) % Plt Count (150-450) k/uL Neutrophils # (Manual) (1.3-7.7) k/uL Lymphocytes # (1.0-4.8) k/uL Lymphocytes # (Manual) (1.0-4.8) k/uL ABG pCO2 (35-45) mmHg ABG O2 Saturation 98.0 H (94-97) % Sodium (137-145) mmol/L Chloride (98-107) mmol/L Carbon Dioxide (22-30) mmol/L BUN (9-20) mg/dL Creatinine (0.66-1.25) mg/dL Glucose (74-99) mg/dL POC Glucose (mg/dL) (70-110) mg/dL Plasma Lactic Acid Mahesh 3.9 H* 2.4 H* (0.7-2.0) mmol/L Magnesium (1.6-2.3) mg/dL AST (17-59) U/L ALT (4-49) U/L Alkaline Phosphatase (38-126) U/L Troponin I (0.000-0.034) ng/mL Total Protein (6.3-8.2) g/dL Albumin (3.5-5.0) g/dL 12/13/23 12/13/23 12/13/23 Range/Units 04:40 04:40 04:40 RBC 3.83 L (4.30-5.90) m/uL Hgb 10.9 L (13.0-17.5) gm/dL Hct 33.0 L (39.0-53.0) % Plt Count 147 L (150-450) k/uL Neutrophils # (Manual) 8.30 H (1.3-7.7) k/uL Lymphocytes # (1.0-4.8) k/uL Lymphocytes # (Manual) 0.99 L (1.0-4.8) k/uL ABG pCO2 (35-45) mmHg ABG O2 Saturation (94-97) % Sodium 127 L (137-145) mmol/L Chloride 97 L (98-107) mmol/L Carbon Dioxide 17 L (22-30) mmol/L BUN 80 H (9-20) mg/dL Creatinine 4.20 H (0.66-1.25) mg/dL Glucose 129 H (74-99) mg/dL POC Glucose (mg/dL) (70-110) mg/dL Plasma Lactic Acid Mahesh (0.7-2.0) mmol/L Magnesium (1.6-2.3) mg/dL AST (17-59) U/L ALT (4-49) U/L Alkaline Phosphatase (38-126) U/L Troponin I 3.070 H* (0.000-0.034) ng/mL Total Protein (6.3-8.2) g/dL Albumin (3.5-5.0) g/dL 12/13/23 12/13/23 Range/Units 05:48 06:40 RBC (4.30-5.90) m/uL Hgb (13.0-17.5) gm/dL Hct (39.0-53.0) % Plt Count (150-450) k/uL Neutrophils # (Manual) (1.3-7.7) k/uL Lymphocytes # (1.0-4.8) k/uL Lymphocytes # (Manual) (1.0-4.8) k/uL ABG pCO2 34 L (35-45) mmHg ABG O2 Saturation (94-97) % Sodium (137-145) mmol/L Chloride (98-107) mmol/L Carbon Dioxide (22-30) mmol/L BUN (9-20) mg/dL Creatinine (0.66-1.25) mg/dL Glucose (74-99) mg/dL POC Glucose (mg/dL) 144 H (70-110) mg/dL Plasma Lactic Acid Mahesh (0.7-2.0) mmol/L Magnesium (1.6-2.3) mg/dL AST (17-59) U/L ALT (4-49) U/L Alkaline Phosphatase (38-126) U/L Troponin I (0.000-0.034) ng/mL Total Protein (6.3-8.2) g/dL Albumin (3.5-5.0) g/dL Microbiology - Last 24 Hours (Table) 12/07/23 00:19 Blood Culture - Final Blood
--- NOTE | 2023-12-13 10:57 | P.PN ---
Subjective Patient is seen in follow-up for acute kidney injury on chronic kidney disease. Renal function continues to worsen. Oliguric. No response to IV Lasix given yesterday. Transferred to the ICU yesterday. Had to cardiac arrest last night. Intubated. On Levophed. Currently on 70% FiO2. Vital signs are stable. On vasopressor support. General: Resting in bed. HEENT: Intubated. LUNGS: Scattered rhonchi. HEART: Rate and Rhythm are regular. ABDOMEN: No distention. EXTREMITITES: Trace edema. Objective - Vital Signs Vital signs: Vital Signs Temp 99.1 F 12/13/23 08:00 Pulse 94 12/13/23 10:15 Resp 25 H 12/13/23 10:15 BP 95/41 12/13/23 10:15 Pulse Ox 97 12/13/23 10:15 FiO2 70 12/13/23 08:24 Intake & Output 12/12/23 12/13/23 12/13/23 18:59 06:59 18:59 Intake Total 358 344.848 10.589 Output Total 200 200 10 Balance 158 144.848 0.589 Weight 78.6 kg Intake: IV 200 Potassium Chloride 10 meq 200 In Water For Injection 1 100ml.bag @ 100 mls/hr IVPB Q1H YASEMIN Rx#: [id number] Intake, IV Titration 144.848 10.589 Amount Norepinephrine 32 mg In 31.748 10.589 Sodium Chloride 0.9% 218 ml @ 0.03 MCG/KG/MIN 1. 223 mls/hr IV .Q24H YASEMIN Rx#:[id number] propofoL 1,000 mg In 113.100 Empty Bag 1 bag @ 15 MCG/ KG/MIN 7.83 mls/hr IV . [id number] YASEMIN Rx#:[id number] Oral 358 Output: Urine 200 200 10 Other: Voiding Method Toilet Indwelling Catheter - Labs CBC & Chem 7: 12/13/23 04:40 12/13/23 04:40 Labs: Abnormal Lab Results - Last 24 Hours (Table) 12/12/23 12/12/23 12/12/23 Range/Units 11:29 12:28 12:28 RBC 3.69 L (4.30-5.90) m/uL Hgb 10.7 L (13.0-17.5) gm/dL Hct 33.1 L (39.0-53.0) % Plt Count 115 L (150-450) k/uL Neutrophils # (Manual) (1.3-7.7) k/uL Lymphocytes # 0.6 L (1.0-4.8) k/uL Lymphocytes # (Manual) (1.0-4.8) k/uL ABG pCO2 (35-45) mmHg ABG O2 Saturation (94-97) % Sodium 126 L (137-145) mmol/L Chloride 97 L (98-107) mmol/L Carbon Dioxide 15 L (22-30) mmol/L BUN 70 H (9-20) mg/dL Creatinine 3.72 H (0.66-1.25) mg/dL Glucose 230 H (74-99) mg/dL POC Glucose (mg/dL) 282 H (70-110) mg/dL Plasma Lactic Acid Mahesh (0.7-2.0) mmol/L Magnesium 2.5 H (1.6-2.3) mg/dL AST (17-59) U/L ALT (4-49) U/L Alkaline Phosphatase (38-126) U/L Troponin I (0.000-0.034) ng/mL Total Protein (6.3-8.2) g/dL Albumin (3.5-5.0) g/dL 12/12/23 12/12/23 12/12/23 Range/Units 16:09 19:47 20:36 RBC (4.30-5.90) m/uL Hgb (13.0-17.5) gm/dL Hct (39.0-53.0) % Plt Count (150-450) k/uL Neutrophils # (Manual) (1.3-7.7) k/uL Lymphocytes # (1.0-4.8) k/uL Lymphocytes # (Manual) (1.0-4.8) k/uL ABG pCO2 (35-45) mmHg ABG O2 Saturation (94-97) % Sodium (137-145) mmol/L Chloride (98-107) mmol/L Carbon Dioxide (22-30) mmol/L BUN (9-20) mg/dL Creatinine (0.66-1.25) mg/dL Glucose (74-99) mg/dL POC Glucose (mg/dL) 250 H 173 H 153 H (70-110) mg/dL Plasma Lactic Acid Mahesh (0.7-2.0) mmol/L Magnesium (1.6-2.3) mg/dL AST (17-59) U/L ALT (4-49) U/L Alkaline Phosphatase (38-126) U/L Troponin I (0.000-0.034) ng/mL Total Protein (6.3-8.2) g/dL Albumin (3.5-5.0) g/dL 12/12/23 12/12/23 12/12/23 Range/Units 21:05 21:05 21:05 RBC 3.81 L (4.30-5.90) m/uL Hgb 11.0 L (13.0-17.5) gm/dL Hct 34.3 L (39.0-53.0) % Plt Count 124 L (150-450) k/uL Neutrophils # (Manual) (1.3-7.7) k/uL Lymphocytes # (1.0-4.8) k/uL Lymphocytes # (Manual) (1.0-4.8) k/uL ABG pCO2 (35-45) mmHg ABG O2 Saturation (94-97) % Sodium 130 L (137-145) mmol/L Chloride 95 L (98-107) mmol/L Carbon Dioxide (22-30) mmol/L BUN 77 H (9-20) mg/dL Creatinine 3.86 H (0.66-1.25) mg/dL Glucose 188 H (74-99) mg/dL POC Glucose (mg/dL) (70-110) mg/dL Plasma Lactic Acid Mahesh (0.7-2.0) mmol/L Magnesium 2.6 H (1.6-2.3) mg/dL AST 121 H (17-59) U/L ALT 80 H (4-49) U/L Alkaline Phosphatase 231 H (38-126) U/L Troponin I 1.730 H* (0.000-0.034) ng/mL Total Protein 5.6 L (6.3-8.2) g/dL Albumin 2.8 L (3.5-5.0) g/dL 12/12/23 12/12/23 12/13/23 Range/Units 22:30 23:02 01:52 RBC (4.30-5.90) m/uL Hgb (13.0-17.5) gm/dL Hct (39.0-53.0) % Plt Count (150-450) k/uL Neutrophils # (Manual) (1.3-7.7) k/uL Lymphocytes # (1.0-4.8) k/uL Lymphocytes # (Manual) (1.0-4.8) k/uL ABG pCO2 (35-45) mmHg ABG O2 Saturation 98.0 H (94-97) % Sodium (137-145) mmol/L Chloride (98-107) mmol/L Carbon Dioxide (22-30) mmol/L BUN (9-20) mg/dL Creatinine (0.66-1.25) mg/dL Glucose (74-99) mg/dL POC Glucose (mg/dL) (70-110) mg/dL Plasma Lactic Acid Mahesh 3.9 H* 2.4 H* (0.7-2.0) mmol/L Magnesium (1.6-2.3) mg/dL AST (17-59) U/L ALT (4-49) U/L Alkaline Phosphatase (38-126) U/L Troponin I (0.000-0.034) ng/mL Total Protein (6.3-8.2) g/dL Albumin (3.5-5.0) g/dL 12/13/23 12/13/23 12/13/23 Range/Units 04:40 04:40 04:40 RBC 3.83 L (4.30-5.90) m/uL Hgb 10.9 L (13.0-17.5) gm/dL Hct 33.0 L (39.0-53.0) % Plt Count 147 L (150-450) k/uL Neutrophils # (Manual) 8.30 H (1.3-7.7) k/uL Lymphocytes # (1.0-4.8) k/uL Lymphocytes # (Manual) 0.99 L (1.0-4.8) k/uL ABG pCO2 (35-45) mmHg ABG O2 Saturation (94-97) % Sodium 127 L (137-145) mmol/L Chloride 97 L (98-107) mmol/L Carbon Dioxide 17 L (22-30) mmol/L BUN 80 H (9-20) mg/dL Creatinine 4.20 H (0.66-1.25) mg/dL Glucose 129 H (74-99) mg/dL POC Glucose (mg/dL) (70-110) mg/dL Plasma Lactic Acid Mahesh (0.7-2.0) mmol/L Magnesium (1.6-2.3) mg/dL AST (17-59) U/L ALT (4-49) U/L Alkaline Phosphatase (38-126) U/L Troponin I 3.070 H* (0.000-0.034) ng/mL Total Protein (6.3-8.2) g/dL Albumin (3.5-5.0) g/dL 12/13/23 12/13/23 Range/Units 05:48 06:40 RBC (4.30-5.90) m/uL Hgb (13.0-17.5) gm/dL Hct (39.0-53.0) % Plt Count (150-450) k/uL Neutrophils # (Manual) (1.3-7.7) k/uL Lymphocytes # (1.0-4.8) k/uL Lymphocytes # (Manual) (1.0-4.8) k/uL ABG pCO2 34 L (35-45) mmHg ABG O2 Saturation (94-97) % Sodium (137-145) mmol/L Chloride (98-107) mmol/L Carbon Dioxide (22-30) mmol/L BUN (9-20) mg/dL Creatinine (0.66-1.25) mg/dL Glucose (74-99) mg/dL POC Glucose (mg/dL) 144 H (70-110) mg/dL Plasma Lactic Acid Mahesh (0.7-2.0) mmol/L Magnesium (1.6-2.3) mg/dL AST (17-59) U/L ALT (4-49) U/L Alkaline Phosphatase (38-126) U/L Troponin I (0.000-0.034) ng/mL Total Protein (6.3-8.2) g/dL Albumin (3.5-5.0) g/dL Microbiology - Last 24 Hours (Table) 12/07/23 00:19 Blood Culture - Final Blood Assessment and Plan Plan: Assessment: 1. Acute kidney injury secondary to hemodynamic ATN, cardiorenal syndrome and cardiac arrest. Also component of contrast-induced acute kidney injury. Creatinine up to 4.2 today. Oliguric. UA benign. No hydronephrosis noted on CAT scan. 2. 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 3. Coronary artery disease status postcardiac catheterization with stent placement on December 10, 2023. Not a candidate for CABG. 4. Metabolic acidosis secondary to acute kidney injury. 5. Hyponatremia. Component of poor solute intake. Hypervolemic. 6. Diabetes mellitus. 7. Possible pneumonia on antibiotics. ID following. 8. Volume overload. 9. Status postcardiac arrest - V-fib and PEA. Plan: Status post 80 mg IV Lasix yesterday with no response in urine output. Scheduled receive IV Bumex today. Wean FiO2 and vasopressors. 2 g sodium bicarb IV push now. With worsening renal function, oliguria and volume overload, initiate renal placement therapy if family agreeable. Consult vascular surgery for dialysis catheter placement. Plan for first treatment of dialysis tomorrow. Prognosis guarded.
[2023-12-13] MEDS: BUMETANIDE 0.25 MG/ML 4 ML VIAL IVP STA (11:32)
[2023-12-13 11:46] LABS: Glucose,Whole Blood 222 mg/dL (70-110)
--- NOTE | 2023-12-13 11:56 | P.CNPUL ---
History of Present Illness Consult date: 12/13/23 Chief complaint: Cardiac arrest History of present illness: 83-year-old male patient who sustained a cardiac yesterday at 2033 and following that the patient was moved to the intensive care unit. The patient was found in asystole. He received CPR based on ACLS protocol. Initial downtime was around 25 to 30 minutes and the patient received 4 rounds of epinephrine and CPR. During the process the patient was also found to be in V-fib and was defibrillated. He was brought into the intensive care unit where he had another code at 2106 and the second code was brief. He was placed on pressors. He is already intubated on mechanical ventilator.. This morning, the patient is on propofol which is running at 50 mcg/kg/min. He is hypotensive and is on norepinephrine 0.18 micrograms per kilogram per minute. He was a difficult IV access. Unable to insert an arterial line. The triple-lumen catheter was inserted in the right femoral vein for hemodynamic support and pressors. At this point in time, he is on assist-control mode at a rate of 20, tidal volume of 400, FiO2 of 70% with a PEEP of 5. The chest x-ray is showing adequate po sitioning of the ET tube. Orotracheal tube was initially in the right mainstem that was pulled out. No change in the bilateral opacities seen. The patient also has a moderate-sized right-sided pleural effusion along with pulm vascular congestion. Blood work from today shows a WBC count 9.9 with a hemoglobin 10.9 and a platelet count of 147. pH is 7.43 with a pCO2 of 34 and a pO2 of 84. Sodium levels at 127 and potassium levels at 4.3 with a serum bicarb of 17 and the BUN is at 80 with a creatinine of 4.2 as the patient has an acute on top of chronic kidney injury. This could have been also related to contrast as the patient's creatinine was gradually going up following his cardiac procedures. Troponin currently is at 3.07 and it is uptrending again post cardiac arrest. Cardiology was informed of those changes. No plans for any further intervention. In terms of his cardiac history, the patient is followed by Dr. Nelson who presents with symptoms of chest discomfort. He has a known history of CAD underwent stenting of the LAD in September [address] Remy and subsequently was readmitted about a week after with acute thrombosis and underwent angioplasty and thrombectomy. He underwent repeat cardiac catheterization in August and was found to have totally occluded LAD with distal left main disease but was felt to be a poor candidate for any surgical intervention. He presents with symptoms of chest discomfort and dyspnea at rest yesterday He usually has exertional angina pectoris with dyspnea on exertion. His activity is limited. He has evidence of cardiomyopathy with segmental wall motion abnormality consistent with his initial presentation with myocardial infarction.Patient is status attempted catheterization with Dr. Nelson on 12/09/2023. Dr. Nelson had difficulty obtaining access and his cardiac catheterization was canceled. He underwent repeat cardiac catheterization with Dr. Remy with PCI of left main and ramus. Patient was hypotensive during the procedure. Review of Systems ROS unobtainable: due to endotracheal tube, due to mental status Past Medical History Past Medical History: CVA/TIA, Diabetes Mellitus, Hypertension, Myocardial Infarction ([place]) Additional Past Medical History / Comment(s): Stroke in December of 2021 Last Myocardial Infarction Date:: 10/03/22 History of Any Multi-Drug Resistant Organisms: None Reported Past Surgical History: Orthopedic Surgery Additional Past Surgical History / Comment(s): Urethral surgery-unsure of date Past Anesthesia/Blood Transfusion Reactions: No Reported Reaction Additional Past Anesthesia/Blood Transfusion Reaction / Comment(s): never had blood transfusion Date of Last Stent Placement:: 10/03/2022 Past Psychological History: No Psychological Hx Reported, Depression, PTSD Smoking Status: Former smoker - Past Family History Father Family Medical History: Hypertension Medications and Allergies Home Medications Medication Instructions Recorded Confirmed Type Aspirin [[place] Aspirin EC] 81 mg PO DAILY 10/03/22 12/06/23 History Atorvastatin Calcium [Lipitor] 80 mg PO HS 10/03/22 12/06/23 History Carboxymethylcellulose Sodium 1 drop BOTH EYES QID 10/03/22 12/06/23 History [Thera Tears] Finasteride [Proscar] 5 mg PO DAILY 10/03/22 12/06/23 History Insulin Glargine,Hum.rec.anlog 35 units SQ DAILY 10/03/22 12/06/23 History [Insulin Glargine Solostar] Magnesium Oxide 400 mg PO BID 10/03/22 12/06/23 History Omeprazole [PriLOSEC] 20 mg PO DAILY 10/03/22 12/06/23 History Sennosides/Docusate Sodium [Senna 1 tab PO DAILY PRN 10/03/22 12/06/23 History Plus 8.6-50 mg Tablet] Tamsulosin HCl [Flomax] 0.4 mg PO BID 10/03/22 12/06/23 History glipiZIDE [Glucotrol] 20 mg PO AC-BID 10/03/22 12/06/23 History Clopidogrel [Plavix] 75 mg PO DAILY #90 tab 10/07/22 12/06/23 Rx Nitroglycerin Sl Tabs [Nitrostat] 0.4 mg SL Q5M PRN 11/05/22 12/06/23 History Furosemide [Lasix] 40 mg PO DAILY #30 tablet 11/08/22 12/06/23 Rx carvediloL [Coreg] 6.25 mg PO BID-W/MEALS #60 tab 11/08/22 12/06/23 Rx DULoxetine HCL [Cymbalta] 60 mg PO DAILY 08/30/23 12/06/23 History Empagliflozin [Jardiance] 25 mg PO DAILY 08/30/23 12/06/23 History Levothyroxine Sodium [Synthroid] 25 mcg PO DAILY 08/30/23 12/06/23 History Mv-Min/Folic/K1/Lycopen/Lutein 1 tab PO DAILY 08/30/23 12/06/23 History [Centrum Silver Men Tablet] Losartan [Cozaar] 12.5 mg PO DAILY 30 Days #15 tab 09/11/23 12/06/23 Rx Budesonide [Pulmicort] 1 mg INHALATION RT-BID 12/06/23 12/06/23 History Ipratropium-Albuterol Nebulize 3 ml INHALATION RT-QID 12/06/23 12/06/23 History [Duoneb 0.5 mg-3 mg/3 ml Soln] cephALEXin [Keflex] 750 mg PO Q12HR 12/06/23 12/06/23 History Allergies Allergy/AdvReac Type Severity Reaction Status Date / Time Sulfa (Sulfonamide Allergy lips swell Verified 12/06/23 10:40 Antibiotics) Physical Exam Vitals: Vital Signs Temp Pulse Pulse Resp BP BP BP 12/13/23 08:24 12/13/23 08:23 92 12/13/23 08:08 92 12/13/23 08:05 12/13/23 08:00 99.1 F 91 23 109/50 12/13/23 07:00 95 23 104/45 12/13/23 06:00 99 25 H 108/52 12/13/23 05:00 100 19 114/49 12/13/23 04:30 12/13/23 04:29 12/13/23 04:00 100.5 F H 100 24 117/54 12/13/23 03:00 98 23 112/55 12/13/23 02:00 98 25 H 110/57 12/13/23 01:00 105 H 28 H 136/66 12/13/23 00:20 12/13/23 00:00 98.1 F 102 H 25 H 123/66 12/12/23 23:29 105 H 25 H 140/59 12/12/23 22:13 91 12/12/23 22:03 90 12/12/23 21:31 12/12/23 21:28 12/12/23 19:48 98.2 F 98 28 H 105/67 12/12/23 16:00 97.4 F L 94 23 111/73 12/12/23 12:00 97.4 F L 84 22 111/68 Pulse Ox FiO2 12/13/23 08:24 70 12/13/23 08:23 12/13/23 08:08 12/13/23 08:05 90 12/13/23 08:00 98 90 12/13/23 07:00 98 12/13/23 06:00 97 12/13/23 05:00 96 12/13/23 04:30 90 12/13/23 04:29 100 12/13/23 04:00 97 90 12/13/23 03:00 96 12/13/23 02:00 95 12/13/23 01:00 91 L 12/13/23 00:20 100 12/13/23 00:00 94 L 100 12/12/23 23:29 95 12/12/23 22:13 12/12/23 22:03 12/12/23 21:31 100 12/12/23 21:28 100 12/12/23 19:48 95 12/12/23 16:00 99 12/12/23 12:00 97 Intake and Output 12/12/23 12/13/23 12/13/23 22:59 06:59 14:59 Intake Total 100 244.848 10.589 Output Total 30 170 10 Balance 70 74.848 0.589 Intake: IV 100 100 Potassium Chloride 10 meq 100 100 In Water For Injection 1 100ml.bag @ 100 mls/hr IVPB Q1H YASEMIN Rx#: [id number] Intake, IV Titration 144.848 10.589 Amount Norepinephrine 32 mg In 31.748 10.589 Sodium Chloride 0.9% 218 ml @ 0.03 MCG/KG/MIN 1. 223 mls/hr IV .Q24H YASEMIN Rx#:[id number] propofoL 1,000 mg In 113.100 Empty Bag 1 bag @ 15 MCG/ KG/MIN 7.83 mls/hr IV . [id number] YASEMIN Rx#:[id number] Output: Urine 30 170 10 Other: Voiding Method Indwelling Catheter Weight 78.6 kg Intubated on mechanical ventilator, currently on propofol, calm and comfortable. No seizure activity. Orogastric and orotracheal tube are both in place. Head exam was generally normal. There was no scleral icterus or corneal arcus. Mucous membranes were moist. Neck was supple and without jugular venous distension, thyromegaly, or carotid bruits. Carotids were easily palpable bilaterally. There was no adenopathy. Lungs are diminished bilaterally and the patient has scattered rhonchi throughout the lung rivas bilaterally. Breath sounds are quite diminished in the right lung base. Cardiac exam revealed the PMI to be normally situated and sized. The rhythm was regular and no extrasystoles were noted during several minutes of auscultation. The first and second heart sounds were normal and physiologic splitting of the second heart sound was noted. There were no murmurs, rubs, clicks, or gallops. Abdominal exam revealed normal bowel sounds. The abdomen was soft, non-tender, and without masses, organomegaly, or appreciable enlargement of the abdominal aorta. Extremities reveal +1 edema and no signs of clubbing diminished pulses lower extremities and upper extremities bilaterally. Examination of the skin revealed no evidence of significant rashes, suspicious appearing nevi or other concerning lesions. Neurologically, the patient grimaces to deep painful stimulation. Pupils are equal reactive to light. No nystagmus. No clonus. No preferential gaze. No Babinski. No clonus. Reflexes are diminished in all 4 extremities. Motor and sensory function cannot be accurately assessed. Positive cough and gag. Results - Laboratory Findings CBC and BMP: 12/13/23 04:40 12/13/23 04:40 ABG ABG pH 7.43 (7.35-7.45) 12/13/23 05:48 ABG pCO2 34 mmHg (35-45) L 12/13/23 05:48 ABG pO2 84 mmHg (83-108) 12/13/23 05:48 ABG O2 Saturation 97.0 % (94-97) 12/13/23 05:48 PT/INR, D-dimer PT 11.7 sec (10.0-12.5) 12/07/23 06:31 INR 1.1 (<1.2) 12/07/23 06:31 Abnormal lab findings: Abnormal Labs 12/06/23 12/06/23 12/06/23 08:31 08:31 11:22 WBC RBC Hgb Hct Plt Count Neutrophils # (Manual) Lymphocytes # 0.5 L Lymphocytes # (Manual) APTT ABG pH ABG pCO2 ABG HCO3 ABG O2 Saturation Sodium 130 L Chloride Carbon Dioxide 18 L BUN 34 H Creatinine 1.80 H Glucose 184 H POC Glucose (mg/dL) 167 H Plasma Lactic Acid Mahesh Calcium 8.2 L Magnesium AST ALT Alkaline Phosphatase 167 H Troponin I C-Reactive Protein Total Protein Albumin Triglycerides HDL Cholesterol Procalcitonin Urine Glucose (UA) Urine Ketones Ur Random Sodium 12/06/23 12/06/23 12/06/23 11:48 12:35 16:34 WBC RBC Hgb Hct Plt Count Neutrophils # (Manual) Lymphocytes # Lymphocytes # (Manual) APTT ABG pH ABG pCO2 ABG HCO3 ABG O2 Saturation Sodium Chloride Carbon Dioxide BUN Creatinine Glucose POC Glucose (mg/dL) 244 H Plasma Lactic Acid Mahesh Calcium Magnesium AST ALT Alkaline Phosphatase Troponin I 0.037 H* C-Reactive Protein Total Protein Albumin Triglycerides HDL Cholesterol Procalcitonin Urine Glucose (UA) 4+ H Urine Ketones Ur Random Sodium 12/06/23 12/06/23 12/06/23 19:20 19:20 21:02 WBC RBC Hgb Hct Plt Count Neutrophils # (Manual) Lymphocytes # 0.4 L Lymphocytes # (Manual) APTT 195.4 H* ABG pH ABG pCO2 ABG HCO3 ABG O2 Saturation Sodium Chloride Carbon Dioxide BUN Creatinine Glucose POC Glucose (mg/dL) 213 H Plasma Lactic Acid Mahesh Calcium Magnesium AST ALT Alkaline Phosphatase Troponin I C-Reactive Protein Total Protein Albumin Triglycerides HDL Cholesterol Procalcitonin Urine Glucose (UA) Urine Ketones Ur Random Sodium 12/07/23 12/07/23 12/07/23 00:19 06:31 06:31 WBC RBC Hgb Hct Plt Count Neutrophils # (Manual) Lymphocytes # Lymphocytes # (Manual) APTT 56.7 H ABG pH ABG pCO2 ABG HCO3 ABG O2 Saturation Sodium 130 L Chloride Carbon Dioxide 17 L BUN 43 H Creatinine 2.12 H Glucose 189 H POC Glucose (mg/dL) Plasma Lactic Acid Mahesh Calcium 7.9 L Magnesium AST ALT Alkaline Phosphatase Troponin I C-Reactive Protein Total Protein Albumin Triglycerides 179.00 H HDL Cholesterol 20.60 L Procalcitonin Urine Glucose (UA) Urine Ketones Ur Random Sodium 12/07/23 12/07/23 12/07/23 06:31 06:31 06:31 WBC 3.5 L RBC 4.20 L Hgb 12.1 L Hct 36.6 L Plt Count Neutrophils # (Manual) Lymphocytes # 0.4 L Lymphocytes # (Manual) APTT 50.5 H ABG pH ABG pCO2 ABG HCO3 ABG O2 Saturation Sodium Chloride Carbon Dioxide BUN Creatinine Glucose POC Glucose (mg/dL) Plasma Lactic Acid Mahesh Calcium Magnesium AST ALT Alkaline Phosphatase Troponin I 2.550 H* C-Reactive Protein Total Protein Albumin Triglycerides HDL Cholesterol Procalcitonin Urine Glucose (UA) Urine Ketones Ur Random Sodium 12/07/23 12/07/23 12/07/23 06:35 11:19 16:21 WBC RBC Hgb Hct Plt Count Neutrophils # (Manual) Lymphocytes # Lymphocytes # (Manual) APTT ABG pH ABG pCO2 ABG HCO3 ABG O2 Saturation Sodium Chloride Carbon Dioxide BUN Creatinine Glucose POC Glucose (mg/dL) 197 H 193 H 218 H Plasma Lactic Acid Mahesh Calcium Magnesium AST ALT Alkaline Phosphatase Troponin I C-Reactive Protein Total Protein Albumin Triglycerides HDL Cholesterol Procalcitonin Urine Glucose (UA) Urine Ketones Ur Random Sodium 12/07/23 12/08/23 12/08/23 20:13 06:03 06:17 WBC RBC Hgb Hct Plt Count Neutrophils # (Manual) Lymphocytes # Lymphocytes # (Manual) APTT ABG pH ABG pCO2 ABG HCO3 ABG O2 Saturation Sodium Chloride Carbon Dioxide BUN Creatinine Glucose POC Glucose (mg/dL) 161 H 65 L 66 L Plasma Lactic Acid Mahesh Calcium Magnesium AST ALT Alkaline Phosphatase Troponin I C-Reactive Protein Total Protein Albumin Triglycerides HDL Cholesterol Procalcitonin Urine Glucose (UA) Urine Ketones Ur Random Sodium 12/08/23 12/08/23 12/08/23 09:33 09:33 15:02 WBC RBC Hgb Hct Plt Count Neutrophils # (Manual) Lymphocytes # Lymphocytes # (Manual) APTT 51.4 H ABG pH ABG pCO2 ABG HCO3 ABG O2 Saturation Sodium 128 L Chloride Carbon Dioxide 20 L BUN 41 H Creatinine 2.08 H Glucose 114 H POC Glucose (mg/dL) Plasma Lactic Acid Mahesh Calcium 8.2 L Magnesium AST ALT Alkaline Phosphatase Troponin I C-Reactive Protein 15.7 H Total Protein Albumin Triglycerides HDL Cholesterol Procalcitonin Urine Glucose (UA) Urine Ketones Ur Random Sodium 12/08/23 12/08/23 12/08/23 15:02 16:17 20:24 WBC RBC Hgb Hct Plt Count Neutrophils # (Manual) Lymphocytes # Lymphocytes # (Manual) APTT ABG pH ABG pCO2 ABG HCO3 ABG O2 Saturation Sodium Chloride Carbon Dioxide BUN Creatinine Glucose POC Glucose (mg/dL) 208 H 226 H Plasma Lactic Acid Mahesh Calcium Magnesium AST ALT Alkaline Phosphatase Troponin I C-Reactive Protein Total Protein Albumin Triglycerides HDL Cholesterol Procalcitonin 1.09 H Urine Glucose (UA) Urine Ketones Ur Random Sodium 12/09/23 12/09/23 12/09/23 05:56 06:16 06:16 WBC RBC Hgb Hct Plt Count Neutrophils # (Manual) Lymphocytes # Lymphocytes # (Manual) APTT 55.7 H ABG pH ABG pCO2 ABG HCO3 ABG O2 Saturation Sodium 127 L Chloride Carbon Dioxide 17 L BUN 33 H Creatinine 1.69 H Glucose 171 H POC Glucose (mg/dL) 284 H Plasma Lactic Acid Mahesh Calcium 8.3 L Magnesium AST ALT Alkaline Phosphatase Troponin I C-Reactive Protein Total Protein Albumin Triglycerides HDL Cholesterol Procalcitonin Urine Glucose (UA) Urine Ketones Ur Random Sodium 12/09/23 12/09/23 12/09/23 08:11 09:28 11:20 WBC RBC 4.12 L Hgb 11.5 L Hct 35.7 L Plt Count 125 L Neutrophils # (Manual) Lymphocytes # Lymphocytes # (Manual) APTT ABG pH ABG pCO2 ABG HCO3 ABG O2 Saturation Sodium Chloride Carbon Dioxide BUN Creatinine Glucose POC Glucose (mg/dL) 216 H 290 H Plasma Lactic Acid Mahesh Calcium Magnesium AST ALT Alkaline Phosphatase Troponin I C-Reactive Protein Total Protein Albumin Triglycerides HDL Cholesterol Procalcitonin Urine Glucose (UA) Urine Ketones Ur Random Sodium 12/09/23 12/09/23 12/09/23 16:19 16:44 19:20 WBC RBC Hgb Hct Plt Count Neutrophils # (Manual) Lymphocytes # Lymphocytes # (Manual) APTT ABG pH ABG pCO2 ABG HCO3 ABG O2 Saturation Sodium Chloride Carbon Dioxide BUN Creatinine Glucose POC Glucose (mg/dL) 322 H Plasma Lactic Acid Mahesh Calcium Magnesium AST ALT Alkaline Phosphatase Troponin I C-Reactive Protein Total Protein Albumin Triglycerides HDL Cholesterol Procalcitonin Urine Glucose (UA) 4+ H Urine Ketones 1+ H Ur Random Sodium <20 L 12/09/23 12/10/23 12/10/23 20:08 06:04 07:26 WBC RBC Hgb Hct Plt Count Neutrophils # (Manual) Lymphocytes # Lymphocytes # (Manual) APTT 48.8 H ABG pH ABG pCO2 ABG HCO3 ABG O2 Saturation Sodium Chloride Carbon Dioxide BUN Creatinine Glucose POC Glucose (mg/dL) 175 H 243 H Plasma Lactic Acid Mahesh Calcium Magnesium AST ALT Alkaline Phosphatase Troponin I C-Reactive Protein Total Protein Albumin Triglycerides HDL Cholesterol Procalcitonin Urine Glucose (UA) Urine Ketones Ur Random Sodium 12/10/23 12/10/23 12/10/23 11:15 11:31 11:31 WBC RBC 4.00 L Hgb 11.2 L Hct 35.5 L Plt Count 100 L Neutrophils # (Manual) Lymphocytes # 0.7 L Lymphocytes # (Manual) APTT ABG pH ABG pCO2 ABG HCO3 ABG O2 Saturation Sodium 130 L Chloride Carbon Dioxide 12 L BUN 43 H Creatinine 2.19 H Glucose 232 H POC Glucose (mg/dL) 230 H Plasma Lactic Acid Mahesh Calcium 8.0 L Magnesium AST ALT Alkaline Phosphatase Troponin I C-Reactive Protein Total Protein Albumin Triglycerides HDL Cholesterol Procalcitonin Urine Glucose (UA) Urine Ketones Ur Random Sodium 12/10/23 12/10/23 12/10/23 17:13 17:32 19:53 WBC RBC Hgb Hct Plt Count Neutrophils # (Manual) Lymphocytes # Lymphocytes # (Manual) APTT ABG pH ABG pCO2 ABG HCO3 ABG O2 Saturation Sodium Chloride Carbon Dioxide BUN Creatinine Glucose POC Glucose (mg/dL) 217 H 213 H 263 H Plasma Lactic Acid Mahesh Calcium Magnesium AST ALT Alkaline Phosphatase Troponin I C-Reactive Protein Total Protein Albumin Triglycerides HDL Cholesterol Procalcitonin Urine Glucose (UA) Urine Ketones Ur Random Sodium 12/11/23 12/11/23 12/11/23 06:08 08:16 10:04 WBC RBC 3.81 L Hgb 11.1 L Hct 34.4 L Plt Count 104 L Neutrophils # (Manual) Lymphocytes # 0.5 L Lymphocytes # (Manual) APTT ABG pH ABG pCO2 ABG HCO3 ABG O2 Saturation Sodium Chloride Carbon Dioxide BUN Creatinine Glucose POC Glucose (mg/dL) 298 H 312 H Plasma Lactic Acid Mahesh Calcium Magnesium AST ALT Alkaline Phosphatase Troponin I C-Reactive Protein Total Protein Albumin Triglycerides HDL Cholesterol Procalcitonin Urine Glucose (UA) Urine Ketones Ur Random Sodium 12/11/23 12/11/23 12/11/23 10:04 11:38 16:33 WBC RBC Hgb Hct Plt Count Neutrophils # (Manual) Lymphocytes # Lymphocytes # (Manual) APTT ABG pH ABG pCO2 ABG HCO3 ABG O2 Saturation Sodium 124 L Chloride Carbon Dioxide 10 L BUN 54 H Creatinine 2.49 H Glucose 316 H POC Glucose (mg/dL) 392 H 306 H Plasma Lactic Acid Mahesh Calcium 8.1 L Magnesium AST ALT Alkaline Phosphatase Troponin I C-Reactive Protein Total Protein Albumin Triglycerides HDL Cholesterol Procalcitonin Urine Glucose (UA) Urine Ketones Ur Random Sodium 12/11/23 12/12/23 12/12/23 19:53 06:14 09:40 WBC RBC Hgb Hct Plt Count Neutrophils # (Manual) Lymphocytes # Lymphocytes # (Manual) APTT ABG pH 7.33 L ABG pCO2 34 L ABG HCO3 18 L ABG O2 Saturation Sodium Chloride Carbon Dioxide BUN Creatinine Glucose POC Glucose (mg/dL) 281 H 248 H Plasma Lactic Acid Mahesh Calcium Magnesium AST ALT Alkaline Phosphatase Troponin I C-Reactive Protein Total Protein Albumin Triglycerides HDL Cholesterol Procalcitonin Urine Glucose (UA) Urine Ketones Ur Random Sodium 12/12/23 12/12/23 12/12/23 11:29 12:28 12:28 WBC RBC 3.69 L Hgb 10.7 L Hct 33.1 L Plt Count 115 L Neutrophils # (Manual) Lymphocytes # 0.6 L Lymphocytes # (Manual) APTT ABG pH ABG pCO2 ABG HCO3 ABG O2 Saturation Sodium 126 L Chloride 97 L Carbon Dioxide 15 L BUN 70 H Creatinine 3.72 H Glucose 230 H POC Glucose (mg/dL) 282 H Plasma Lactic Acid Mahesh Calcium Magnesium 2.5 H AST ALT Alkaline Phosphatase Troponin I C-Reactive Protein Total Protein Albumin Triglycerides HDL Cholesterol Procalcitonin Urine Glucose (UA) Urine Ketones Ur Random Sodium 12/12/23 12/12/23 12/12/23 16:09 19:47 20:36 WBC RBC Hgb Hct Plt Count Neutrophils # (Manual) Lymphocytes # Lymphocytes # (Manual) APTT ABG pH ABG pCO2 ABG HCO3 ABG O2 Saturation Sodium Chloride Carbon Dioxide BUN Creatinine Glucose POC Glucose (mg/dL) 250 H 173 H 153 H Plasma Lactic Acid Mahesh Calcium Magnesium AST ALT Alkaline Phosphatase Troponin I C-Reactive Protein Total Protein Albumin Triglycerides HDL Cholesterol Procalcitonin Urine Glucose (UA) Urine Ketones Ur Random Sodium 12/12/23 12/12/23 12/12/23 21:05 21:05 21:05 WBC RBC 3.81 L Hgb 11.0 L Hct 34.3 L Plt Count 124 L Neutrophils # (Manual) Lymphocytes # Lymphocytes # (Manual) APTT ABG pH ABG pCO2 ABG HCO3 ABG O2 Saturation Sodium 130 L Chloride 95 L Carbon Dioxide BUN 77 H Creatinine 3.86 H Glucose 188 H POC Glucose (mg/dL) Plasma Lactic Acid Mahesh Calcium Magnesium 2.6 H AST 121 H ALT 80 H Alkaline Phosphatase 231 H Troponin I 1.730 H* C-Reactive Protein Total Protein 5.6 L Albumin 2.8 L Triglycerides HDL Cholesterol Procalcitonin Urine Glucose (UA) Urine Ketones Ur Random Sodium 12/12/23 12/12/23 12/13/23 22:30 23:02 01:52 WBC RBC Hgb Hct Plt Count Neutrophils # (Manual) Lymphocytes # Lymphocytes # (Manual) APTT ABG pH ABG pCO2 ABG HCO3 ABG O2 Saturation 98.0 H Sodium Chloride Carbon Dioxide BUN Creatinine Glucose POC Glucose (mg/dL) Plasma Lactic Acid Mahesh 3.9 H* 2.4 H* Calcium Magnesium AST ALT Alkaline Phosphatase Troponin I C-Reactive Protein Total Protein Albumin Triglycerides HDL Cholesterol Procalcitonin Urine Glucose (UA) Urine Ketones Ur Random Sodium 12/13/23 12/13/23 12/13/23 04:40 04:40 04:40 WBC RBC 3.83 L Hgb 10.9 L Hct 33.0 L Plt Count 147 L Neutrophils # (Manual) 8.30 H Lymphocytes # Lymphocytes # (Manual) 0.99 L APTT ABG pH ABG pCO2 ABG HCO3 ABG O2 Saturation Sodium 127 L Chloride 97 L Carbon Dioxide 17 L BUN 80 H Creatinine 4.20 H Glucose 129 H POC Glucose (mg/dL) Plasma Lactic Acid Mahesh Calcium Magnesium AST ALT Alkaline Phosphatase Troponin I 3.070 H* C-Reactive Protein Total Protein Albumin Triglycerides HDL Cholesterol Procalcitonin Urine Glucose (UA) Urine Ketones Ur Random Sodium 12/13/23 12/13/23 05:48 06:40 WBC RBC Hgb Hct Plt Count Neutrophils # (Manual) Lymphocytes # Lymphocytes # (Manual) APTT ABG pH ABG pCO2 34 L ABG HCO3 ABG O2 Saturation Sodium Chloride Carbon Dioxide BUN Creatinine Glucose POC Glucose (mg/dL) 144 H Plasma Lactic Acid Mahesh Calcium Magnesium AST ALT Alkaline Phosphatase Troponin I C-Reactive Protein Total Protein Albumin Triglycerides HDL Cholesterol Procalcitonin Urine Glucose (UA) Urine Ketones Ur Random Sodium - Diagnostic Findings Chest x-ray: image reviewed Assessment and Plan Plan: Acute cardiac arrest x 2. The patient was found to be asystolic on 2033 PM and the patient was assisted by ACLS protocol and he was given CPR and epinephrine and he was defibrillated for a V-fib cardiac rhythm at a later stage. Intubated and placed on mechanical ventilator and sustained another cardiac arrest in the ICU. The second cardiac arrest was brief at 2106 PM. Cardiac arrest is most likely related to his extensive coronary artery disease and the patient is deemed to be not a surgical candidate. Coronary interventions have been done earlier as discussed. Case was discussed with cardiology. No role for any further intervention and treatment will be medical at this point in time. Acute hypoxic respiratory failure, currently debated on mechanical ventilator. Chest x-ray is consistent with CHF and the patient has a moderate-sized right- sided pleural effusion. Aspiration is felt to be less likely. Shock, postcardiac arrest likely cardiogenic in nature. Anoxic encephalopathy suspected due to his prolonged downtime which was estimated to be around 25 to 30 minutes, currently unresponsive on propofol. Does have brainstem reflexes. Coronary artery disease with previous stenting of the LAD, September 2022, complicated by acute thrombosis requiring angioplasty and thrombectomy. The patient is also status post repeat cardiac catheterization, 08/2023, revealing totally occluded LAD with distal left main disease, felt to be a poor candidate for surgical intervention Ischemic cardiomyopathy, EF 35 to 40%,nMild acute on chronic heart failure with reduced EF Acute kidney injury on top of his chronic kidney disease. Creatinine is on the rise. Rule out contrast nephropathy. Rule out postcardiac arrest ATN. Metabolic acidosis, secondary to above Hypotension, history of Hyperlipidemia, history of Diabetes, history of History of CVA History of medical debility second above-mentioned comorbidities Plan Continue ventilator support and no vent changes will be done for now Chest x-ray and blood gas were noted Patient is being on a combination of aspirin and Plavix and those will be continued Continue pressors and the patient is currently on norepinephrine running at 0.18 mcg/kg/min. Unable to insert an arterial line. Start the patient on IV Zosyn as an empiric antibiotic coverage Consult with nephrology and discussed the possibility of hemodialysis the patient has obvious signs of fluid overload along with progressive worsening renal function acute on top of chronic kidney disease Keep the patient is sedated with propofol Levemir insulin 10 units along with a sliding scale insulin coverage Keep the patient n.p.o. for now Continue bronchodilators Continue statins Continue Protonix Oral bicarb Condition is obviously critical. Will consult again with cardiology. Will consult with neurology. Will make further recommendations accordingly. Poor prognosis based on above-mentioned comorbidities. Will continue to follow. Critical care evaluation. Time with Patient: Greater than 30
[2023-12-13] MEDS: HEPARIN SODIUM 1,000 UN/ML (10ML VL) MISCELLANE ONE (13:34)
--- NOTE | 2023-12-13 14:18 | P.GSCN ---
History of Present Illness History of present illness: 83-year-old gentleman patient is acute chronic renal failure. Oliguria. Patient had a cardiac arrest patient has been intubated consulted for placement of urgent dialysis catheter. Patient has been intubated Chest her crackles bilateral Abdomen soft nontender femorals are 1+ and is placement of dialysis catheter Past Medical History Past Medical History: CVA/TIA, Diabetes Mellitus, Hypertension, Myocardial Infarction (ME) Additional Past Medical History / Comment(s): Stroke in December of 2021 Last Myocardial Infarction Date:: 10/03/22 History of Any Multi-Drug Resistant Organisms: None Reported Past Surgical History: Orthopedic Surgery Additional Past Surgical History / Comment(s): Urethral surgery-unsure of date Past Anesthesia/Blood Transfusion Reactions: No Reported Reaction Additional Past Anesthesia/Blood Transfusion Reaction / Comm: never had blood transfusion Date of Last Stent Placement:: 10/03/2022 Past Psychological History: No Psychological Hx Reported, Depression, PTSD Smoking Status: Former smoker - Past Family History Father Family Medical History: Hypertension Medications and Allergies Home Medications Medication Instructions Recorded Confirmed Type Aspirin [[place] Aspirin EC] 81 mg PO DAILY 10/03/22 12/06/23 History Atorvastatin Calcium [Lipitor] 80 mg PO HS 10/03/22 12/06/23 History Carboxymethylcellulose Sodium 1 drop BOTH EYES QID 10/03/22 12/06/23 History [Thera Tears] Finasteride [Proscar] 5 mg PO DAILY 10/03/22 12/06/23 History Insulin Glargine,Hum.rec.anlog 35 units SQ DAILY 10/03/22 12/06/23 History [Insulin Glargine Solostar] Magnesium Oxide 400 mg PO BID 10/03/22 12/06/23 History Omeprazole [PriLOSEC] 20 mg PO DAILY 10/03/22 12/06/23 History Sennosides/Docusate Sodium [Senna 1 tab PO DAILY PRN 10/03/22 12/06/23 History Plus 8.6-50 mg Tablet] Tamsulosin HCl [Flomax] 0.4 mg PO BID 10/03/22 12/06/23 History glipiZIDE [Glucotrol] 20 mg PO AC-BID 10/03/22 12/06/23 History Clopidogrel [Plavix] 75 mg PO DAILY #90 tab 10/07/22 12/06/23 Rx Nitroglycerin Sl Tabs [Nitrostat] 0.4 mg SL Q5M PRN 11/05/22 12/06/23 History Furosemide [Lasix] 40 mg PO DAILY #30 tablet 11/08/22 12/06/23 Rx carvediloL [Coreg] 6.25 mg PO BID-W/MEALS #60 tab 11/08/22 12/06/23 Rx DULoxetine HCL [Cymbalta] 60 mg PO DAILY 08/30/23 12/06/23 History Empagliflozin [Jardiance] 25 mg PO DAILY 08/30/23 12/06/23 History Levothyroxine Sodium [Synthroid] 25 mcg PO DAILY 08/30/23 12/06/23 History Mv-Min/Folic/K1/Lycopen/Lutein 1 tab PO DAILY 08/30/23 12/06/23 History [Centrum Silver Men Tablet] Losartan [Cozaar] 12.5 mg PO DAILY 30 Days #15 tab 09/11/23 12/06/23 Rx Budesonide [Pulmicort] 1 mg INHALATION RT-BID 12/06/23 12/06/23 History Ipratropium-Albuterol Nebulize 3 ml INHALATION RT-QID 12/06/23 12/06/23 History [Duoneb 0.5 mg-3 mg/3 ml Soln] cephALEXin [Keflex] 750 mg PO Q12HR 12/06/23 12/06/23 History Allergies Allergy/AdvReac Type Severity Reaction Status Date / Time Sulfa (Sulfonamide Allergy lips swell Verified 12/06/23 10:40 Antibiotics) Surgical - Exam Vital Signs Temp Pulse Resp BP Pulse Ox 102.6 F H 84 20 98/61 100 12/06/23 08:25 12/06/23 08:25 12/06/23 08:25 12/06/23 08:25 12/06/23 08:25 Results - Labs 12/13/23 04:40 12/13/23 04:40 Abnormal Lab Results - Last 24 Hours (Table) 12/12/23 12/12/23 12/12/23 Range/Units 16:09 19:47 20:36 RBC (4.30-5.90) m/uL Hgb (13.0-17.5) gm/dL Hct (39.0-53.0) % Plt Count (150-450) k/uL Neutrophils # (Manual) (1.3-7.7) k/uL Lymphocytes # (Manual) (1.0-4.8) k/uL ABG pCO2 (35-45) mmHg ABG O2 Saturation (94-97) % Sodium (137-145) mmol/L Chloride (98-107) mmol/L Carbon Dioxide (22-30) mmol/L BUN (9-20) mg/dL Creatinine (0.66-1.25) mg/dL Glucose (74-99) mg/dL POC Glucose (mg/dL) 250 H 173 H 153 H (70-110) mg/dL Plasma Lactic Acid Mahesh (0.7-2.0) mmol/L Magnesium (1.6-2.3) mg/dL AST (17-59) U/L ALT (4-49) U/L Alkaline Phosphatase (38-126) U/L Troponin I (0.000-0.034) ng/mL Total Protein (6.3-8.2) g/dL Albumin (3.5-5.0) g/dL 12/12/23 12/12/23 12/12/23 Range/Units 21:05 21:05 21:05 RBC 3.81 L (4.30-5.90) m/uL Hgb 11.0 L (13.0-17.5) gm/dL Hct 34.3 L (39.0-53.0) % Plt Count 124 L (150-450) k/uL Neutrophils # (Manual) (1.3-7.7) k/uL Lymphocytes # (Manual) (1.0-4.8) k/uL ABG pCO2 (35-45) mmHg ABG O2 Saturation (94-97) % Sodium 130 L (137-145) mmol/L Chloride 95 L (98-107) mmol/L Carbon Dioxide (22-30) mmol/L BUN 77 H (9-20) mg/dL Creatinine 3.86 H (0.66-1.25) mg/dL Glucose 188 H (74-99) mg/dL POC Glucose (mg/dL) (70-110) mg/dL Plasma Lactic Acid Mahesh (0.7-2.0) mmol/L Magnesium 2.6 H (1.6-2.3) mg/dL AST 121 H (17-59) U/L ALT 80 H (4-49) U/L Alkaline Phosphatase 231 H (38-126) U/L Troponin I 1.730 H* (0.000-0.034) ng/mL Total Protein 5.6 L (6.3-8.2) g/dL Albumin 2.8 L (3.5-5.0) g/dL 12/12/23 12/12/23 12/13/23 Range/Units 22:30 23:02 01:52 RBC (4.30-5.90) m/uL Hgb (13.0-17.5) gm/dL Hct (39.0-53.0) % Plt Count (150-450) k/uL Neutrophils # (Manual) (1.3-7.7) k/uL Lymphocytes # (Manual) (1.0-4.8) k/uL ABG pCO2 (35-45) mmHg ABG O2 Saturation 98.0 H (94-97) % Sodium (137-145) mmol/L Chloride (98-107) mmol/L Carbon Dioxide (22-30) mmol/L BUN (9-20) mg/dL Creatinine (0.66-1.25) mg/dL Glucose (74-99) mg/dL POC Glucose (mg/dL) (70-110) mg/dL Plasma Lactic Acid Mahesh 3.9 H* 2.4 H* (0.7-2.0) mmol/L Magnesium (1.6-2.3) mg/dL AST (17-59) U/L ALT (4-49) U/L Alkaline Phosphatase (38-126) U/L Troponin I (0.000-0.034) ng/mL Total Protein (6.3-8.2) g/dL Albumin (3.5-5.0) g/dL 12/13/23 12/13/23 12/13/23 Range/Units 04:40 04:40 04:40 RBC 3.83 L (4.30-5.90) m/uL Hgb 10.9 L (13.0-17.5) gm/dL Hct 33.0 L (39.0-53.0) % Plt Count 147 L (150-450) k/uL Neutrophils # (Manual) 8.30 H (1.3-7.7) k/uL Lymphocytes # (Manual) 0.99 L (1.0-4.8) k/uL ABG pCO2 (35-45) mmHg ABG O2 Saturation (94-97) % Sodium 127 L (137-145) mmol/L Chloride 97 L (98-107) mmol/L Carbon Dioxide 17 L (22-30) mmol/L BUN 80 H (9-20) mg/dL Creatinine 4.20 H (0.66-1.25) mg/dL Glucose 129 H (74-99) mg/dL POC Glucose (mg/dL) (70-110) mg/dL Plasma Lactic Acid Mahesh (0.7-2.0) mmol/L Magnesium (1.6-2.3) mg/dL AST (17-59) U/L ALT (4-49) U/L Alkaline Phosphatase (38-126) U/L Troponin I 3.070 H* (0.000-0.034) ng/mL Total Protein (6.3-8.2) g/dL Albumin (3.5-5.0) g/dL 12/13/23 12/13/23 12/13/23 Range/Units 05:48 06:40 11:44 RBC (4.30-5.90) m/uL Hgb (13.0-17.5) gm/dL Hct (39.0-53.0) % Plt Count (150-450) k/uL Neutrophils # (Manual) (1.3-7.7) k/uL Lymphocytes # (Manual) (1.0-4.8) k/uL ABG pCO2 34 L (35-45) mmHg ABG O2 Saturation (94-97) % Sodium (137-145) mmol/L Chloride (98-107) mmol/L Carbon Dioxide (22-30) mmol/L BUN (9-20) mg/dL Creatinine (0.66-1.25) mg/dL Glucose (74-99) mg/dL POC Glucose (mg/dL) 144 H 222 H (70-110) mg/dL Plasma Lactic Acid Mahesh (0.7-2.0) mmol/L Magnesium (1.6-2.3) mg/dL AST (17-59) U/L ALT (4-49) U/L Alkaline Phosphatase (38-126) U/L Troponin I (0.000-0.034) ng/mL Total Protein (6.3-8.2) g/dL Albumin (3.5-5.0) g/dL Microbiology - Last 24 Hours (Table) 12/07/23 00:19 Blood Culture - Final Blood Diabetes panel 12/12/23 12/13/23 Range/Units 21:05 04:40 Sodium 130 L 127 L (137-145) mmol/L Potassium 3.6 4.3 (3.5-5.1) mmol/L Chloride 95 L 97 L (98-107) mmol/L Carbon Dioxide 22 17 L (22-30) mmol/L BUN 77 H 80 H (9-20) mg/dL Creatinine 3.86 H 4.20 H (0.66-1.25) mg/dL Glucose 188 H 129 H (74-99) mg/dL Calcium 8.9 8.6 (8.4-10.2) mg/dL AST 121 H (17-59) U/L ALT 80 H (4-49) U/L Alkaline Phosphatase 231 H (38-126) U/L Total Protein 5.6 L (6.3-8.2) g/dL Albumin 2.8 L (3.5-5.0) g/dL Calcium panel 12/12/23 12/13/23 Range/Units 21:05 04:40 Calcium 8.9 8.6 (8.4-10.2) mg/dL Albumin 2.8 L (3.5-5.0) g/dL Pituitary panel 12/12/23 12/13/23 Range/Units 21:05 04:40 Sodium 130 L 127 L (137-145) mmol/L Potassium 3.6 4.3 (3.5-5.1) mmol/L Chloride 95 L 97 L (98-107) mmol/L Carbon Dioxide 22 17 L (22-30) mmol/L BUN 77 H 80 H (9-20) mg/dL Creatinine 3.86 H 4.20 H (0.66-1.25) mg/dL Glucose 188 H 129 H (74-99) mg/dL Calcium 8.9 8.6 (8.4-10.2) mg/dL Adrenal panel 12/12/23 12/13/23 Range/Units 21:05 04:40 Sodium 130 L 127 L (137-145) mmol/L Potassium 3.6 4.3 (3.5-5.1) mmol/L Chloride 95 L 97 L (98-107) mmol/L Carbon Dioxide 22 17 L (22-30) mmol/L BUN 77 H 80 H (9-20) mg/dL Creatinine 3.86 H 4.20 H (0.66-1.25) mg/dL Glucose 188 H 129 H (74-99) mg/dL Calcium 8.9 8.6 (8.4-10.2) mg/dL Total Bilirubin 0.6 (0.2-1.3) mg/dL AST 121 H (17-59) U/L ALT 80 H (4-49) U/L Alkaline Phosphatase 231 H (38-126) U/L Total Protein 5.6 L (6.3-8.2) g/dL Albumin 2.8 L (3.5-5.0) g/dL
--- NOTE | 2023-12-13 16:19 | P.PN ---
Subjective Progress Note Date: 12/13/23 Principal diagnosis: Reason for follow-up is fever possible pneumonia Patient is a 83-year-old male past medical history significant for diabetes mellitus hypertension [place] CVA TIA presenting to the hospital with chest pain shortness of breath also noticed to be febrile prompting this consultation. On today's evaluation that is 12/13/2023, patient did have significant change in his clinical condition the patient did have a cardiac arrest x 2 requiring intubation and admission to the ICU currently on the vent patient requiring high-dose pressor support and continued blood pressure and he did have a fever 100.5 F earlier this morning patient is currently on 70% FiO2 and did have some trace secretions which has been sent for culture. Patient white count is 9.9, creatinine is 4.20 lactic acid was 3.9 down to 1.5 Objective - Vital Signs Vital signs: Vital Signs Temp 99.1 F 12/13/23 08:00 Pulse 104 H 12/13/23 12:30 Resp 21 12/13/23 12:30 BP 95/45 12/13/23 12:30 Pulse Ox 98 12/13/23 12:30 FiO2 70 12/13/23 11:21 Intake & Output 12/12/23 12/13/23 12/13/23 18:59 06:59 18:59 Intake Total 358 344.848 140.589 Output Total 200 200 20 Balance 158 144.848 120.589 Weight 78.6 kg Intake: IV 200 30 .9 NS 30 Potassium Chloride 10 meq 200 In Water For Injection 1 100ml.bag @ 100 mls/hr IVPB Q1H YASEMIN Rx#: [id number] Intake, IV Titration 144.848 110.589 Amount Norepinephrine 32 mg In 31.748 10.589 Sodium Chloride 0.9% 218 ml @ 0.03 MCG/KG/MIN 1. 223 mls/hr IV .Q24H YASEMIN Rx#:[id number] propofoL 1,000 mg In 113.100 100 Empty Bag 1 bag @ 15 MCG/ KG/MIN 7.83 mls/hr IV . [id number] YASEMIN Rx#:[id number] Oral 358 Output: Urine 200 200 20 Other: Voiding Method Toilet Indwelling Catheter - Exam GENERAL DESCRIPTION: An elderly male intubated on the vent RESPIRATORY SYSTEM: Unlabored breathing , decreased breath sounds at bases HEART: S1 S2 regular rate and rhythm , ABDOMEN: Soft , no tenderness EXTREMITIES: No edema feet - Labs CBC & Chem 7: 12/13/23 04:40 12/13/23 04:40 Labs: Abnormal Lab Results - Last 24 Hours (Table) 12/12/23 12/12/23 12/12/23 Range/Units 16:09 19:47 20:36 RBC (4.30-5.90) m/uL Hgb (13.0-17.5) gm/dL Hct (39.0-53.0) % Plt Count (150-450) k/uL Neutrophils # (Manual) (1.3-7.7) k/uL Lymphocytes # (Manual) (1.0-4.8) k/uL ABG pCO2 (35-45) mmHg ABG O2 Saturation (94-97) % Sodium (137-145) mmol/L Chloride (98-107) mmol/L Carbon Dioxide (22-30) mmol/L BUN (9-20) mg/dL Creatinine (0.66-1.25) mg/dL Glucose (74-99) mg/dL POC Glucose (mg/dL) 250 H 173 H 153 H (70-110) mg/dL Plasma Lactic Acid Mahesh (0.7-2.0) mmol/L Magnesium (1.6-2.3) mg/dL AST (17-59) U/L ALT (4-49) U/L Alkaline Phosphatase (38-126) U/L Troponin I (0.000-0.034) ng/mL Total Protein (6.3-8.2) g/dL Albumin (3.5-5.0) g/dL 12/12/23 12/12/23 12/12/23 Range/Units 21:05 21:05 21:05 RBC 3.81 L (4.30-5.90) m/uL Hgb 11.0 L (13.0-17.5) gm/dL Hct 34.3 L (39.0-53.0) % Plt Count 124 L (150-450) k/uL Neutrophils # (Manual) (1.3-7.7) k/uL Lymphocytes # (Manual) (1.0-4.8) k/uL ABG pCO2 (35-45) mmHg ABG O2 Saturation (94-97) % Sodium 130 L (137-145) mmol/L Chloride 95 L (98-107) mmol/L Carbon Dioxide (22-30) mmol/L BUN 77 H (9-20) mg/dL Creatinine 3.86 H (0.66-1.25) mg/dL Glucose 188 H (74-99) mg/dL POC Glucose (mg/dL) (70-110) mg/dL Plasma Lactic Acid Mahesh (0.7-2.0) mmol/L Magnesium 2.6 H (1.6-2.3) mg/dL AST 121 H (17-59) U/L ALT 80 H (4-49) U/L Alkaline Phosphatase 231 H (38-126) U/L Troponin I 1.730 H* (0.000-0.034) ng/mL Total Protein 5.6 L (6.3-8.2) g/dL Albumin 2.8 L (3.5-5.0) g/dL 12/12/23 12/12/23 12/13/23 Range/Units 22:30 23:02 01:52 RBC (4.30-5.90) m/uL Hgb (13.0-17.5) gm/dL Hct (39.0-53.0) % Plt Count (150-450) k/uL Neutrophils # (Manual) (1.3-7.7) k/uL Lymphocytes # (Manual) (1.0-4.8) k/uL ABG pCO2 (35-45) mmHg ABG O2 Saturation 98.0 H (94-97) % Sodium (137-145) mmol/L Chloride (98-107) mmol/L Carbon Dioxide (22-30) mmol/L BUN (9-20) mg/dL Creatinine (0.66-1.25) mg/dL Glucose (74-99) mg/dL POC Glucose (mg/dL) (70-110) mg/dL Plasma Lactic Acid Mahesh 3.9 H* 2.4 H* (0.7-2.0) mmol/L Magnesium (1.6-2.3) mg/dL AST (17-59) U/L ALT (4-49) U/L Alkaline Phosphatase (38-126) U/L Troponin I (0.000-0.034) ng/mL Total Protein (6.3-8.2) g/dL Albumin (3.5-5.0) g/dL 12/13/23 12/13/23 12/13/23 Range/Units 04:40 04:40 04:40 RBC 3.83 L (4.30-5.90) m/uL Hgb 10.9 L (13.0-17.5) gm/dL Hct 33.0 L (39.0-53.0) % Plt Count 147 L (150-450) k/uL Neutrophils # (Manual) 8.30 H (1.3-7.7) k/uL Lymphocytes # (Manual) 0.99 L (1.0-4.8) k/uL ABG pCO2 (35-45) mmHg ABG O2 Saturation (94-97) % Sodium 127 L (137-145) mmol/L Chloride 97 L (98-107) mmol/L Carbon Dioxide 17 L (22-30) mmol/L BUN 80 H (9-20) mg/dL Creatinine 4.20 H (0.66-1.25) mg/dL Glucose 129 H (74-99) mg/dL POC Glucose (mg/dL) (70-110) mg/dL Plasma Lactic Acid Mahesh (0.7-2.0) mmol/L Magnesium (1.6-2.3) mg/dL AST (17-59) U/L ALT (4-49) U/L Alkaline Phosphatase (38-126) U/L Troponin I 3.070 H* (0.000-0.034) ng/mL Total Protein (6.3-8.2) g/dL Albumin (3.5-5.0) g/dL 12/13/23 12/13/23 12/13/23 Range/Units 05:48 06:40 11:44 RBC (4.30-5.90) m/uL Hgb (13.0-17.5) gm/dL Hct (39.0-53.0) % Plt Count (150-450) k/uL Neutrophils # (Manual) (1.3-7.7) k/uL Lymphocytes # (Manual) (1.0-4.8) k/uL ABG pCO2 34 L (35-45) mmHg ABG O2 Saturation (94-97) % Sodium (137-145) mmol/L Chloride (98-107) mmol/L Carbon Dioxide (22-30) mmol/L BUN (9-20) mg/dL Creatinine (0.66-1.25) mg/dL Glucose (74-99) mg/dL POC Glucose (mg/dL) 144 H 222 H (70-110) mg/dL Plasma Lactic Acid Mahesh (0.7-2.0) mmol/L Magnesium (1.6-2.3) mg/dL AST (17-59) U/L ALT (4-49) U/L Alkaline Phosphatase (38-126) U/L Troponin I (0.000-0.034) ng/mL Total Protein (6.3-8.2) g/dL Albumin (3.5-5.0) g/dL Microbiology - Last 24 Hours (Table) 12/07/23 00:19 Blood Culture - Final Blood Assessment and Plan (1) Fever and chills Current Visit: Yes Status: Acute Code(s): R50.9 - FEVER, UNSPECIFIED SN OMED Code(s): 948203246 (2) Sepsis Current Visit: Yes Status: Acute Code(s): A41.9 - SEPSIS, UNSPECIFIED ORGANISM SNOMED Code(s): 38518399 (3) Aspiration pneumonia Current Visit: Yes Status: Acute Code(s): J69.0 - PNEUMONITIS DUE TO INHALATION OF FOOD AND VOMIT SNOMED Code(s): 298058323 Plan: 1patient presented hospital with chest pain noticed to have a fever on admission and another fever this morning did have predominantly respiratory symptoms with a question of possible pneumonia versus intra-abdominal pathology, but we did have a negative UA no evidence of any cellulitis or joint swelling 2-patient did have significant change in his clinical condition did have a cardiac arrest and admission to the ICU currently requiring high-dose pressor support he did have a fever hypotension and concerning for possible aspiration, sputum culture has been obtained will obtain blood cultures CRP procalcitonin antibiotic has been broadened to Zosyn and will monitor clinical course closely Dictation was produced using [employer] dictation software. please excuse any grammatical, word or spelling errors. Time with Patient: Less than 30
[2023-12-13 19:40] LABS: Glucose,Whole Blood 307 mg/dL (70-110)
[2023-12-13] MEDS: INSULIN ASPART (NovoLOG) 100 UNIT/ML VIAL SQ SCH (19:58)
[2023-12-14 00:02] LABS: Glucose,Whole Blood 258 mg/dL (70-110)
[2023-12-14 03:46] LABS: Basophils # (A) 0.1 k/uL (0-0.2); Basophils % (A) 0 %; Eosinophils # (A) 0.2 k/uL (0-0.7); Eosinophils % (A) 2 %; HCT 29.5 % (39.0-53.0); HGB 9.9 gm/dL (13.0-17.5); Lymphocytes # (A) 0.7 k/uL (1.0-4.8); Lymphocytes % (A) 7 %; MCH 29.3 pg (25.0-35.0); MCHC 33.5 g/dL (31.0-37.0); MCV 87.3 fL (80.0-100.0); Mean Platelet Volume 9.4; Monocytes # (A) 0.6 k/uL (0-1.0); Monocytes % (A) 6 %; Neutrophils # (A) 8.6 k/uL (1.3-7.7); Neutrophils % (A) 84 %; Platelet Count 177 k/uL (150-450); RBC 3.38 m/uL (4.30-5.90); RDW 15.5 % (11.5-15.5); WBC 10.3 k/uL (3.8-10.6)
[2023-12-14 04:08] LABS: African American GFR (CKD) 10 (>60 ml/min/1.73 sqM); Anion Gap 15 mmol/L; Blood Urea Nitrogen 88 mg/dL (9-20); Calcium 7.8 mg/dL (8.4-10.2); Carbon Dioxide 19 mmol/L (22-30); Chloride 95 mmol/L (98-107); Glucose 242 mg/dL (74-99); Magnesium 2.4 mg/dL (1.6-2.3); Non-African American GFR(CKD) 8 (>60 ml/min/1.73 sqM); Potassium 4.5 mmol/L (3.5-5.1); Sodium 129 mmol/L (137-145)
[2023-12-14 06:16] LABS: ABG Base Excess -2.2 mmol/L; ABG HCO3 22 mmol/L (21-25); ABG PCO2 35 mmHg (35-45); ABG PH 7.41 (7.35-7.45); ABG PO2 88 mmHg (83-108); ABG TCO2 24 mmol/L (19-24); Allen Test Performed? Yes
[2023-12-14 06:24] LABS: Glucose,Whole Blood 265 mg/dL (70-110)
--- NOTE | 2023-12-14 08:20 | XR ---
EXAMINATION TYPE: XR chest 1V portable DATE OF EXAM: 12/14/2023 COMPARISON: 12/13/2023, 12/12/2023 HISTORY: Tube placement TECHNIQUE: Single frontal view of the chest is obtained. FINDINGS: ET and NG tube stable. Diffuse bilateral airspace disease with pleural effusions. No pneum othorax. Heart is enlarged. Widening of the right AC joint are likely chronic correlate clinically. D egenerative change of the spine. IMPRESSION: 1. ET and NG tube appear in good position. 2. Diffuse bilateral airspace disease with pleural effusion. Correlate for pulmonary edema, ARDS or d iffuse pneumonia.
[2023-12-14] MEDS: PANTOPRAZOLE 40 MG/10 ML VIAL IVP SCH (08:34)
--- NOTE | 2023-12-14 10:35 | P.PN ---
Subjective Progress Note Date: 12/14/23 Pts CXR today looks floridly volume overloaded. Plan is for iHD today per nephrology. Gen: In NAD, non-toxic HEENT: normocephalic, atraumatic, hearing acuity is intant, mucous membranes moist CVS: perfusing all extremities well, no pitting edema, Respiratory: symmetric chest expansion, no accessory muscle use, GI: soft, NTTP, ND, : no suprapubic tenderness, no CVA tenderness MSK/Derm: no rashes, cyanosis Neuro: CN II-XII intact, no motor weakness, Psych: cooperative, euthymic mood, judgment and insight is intact Hospital course: 83-year-old male with PMH of CAD, history of CVA, diabetes mellitus, chronic kidney disease, hypertension, BPH, hypothyroidism presents the ED for chest pain . Chest pain woke him up at 3AM. Chest pain mid sternal, described as rumbling, radiating to both arms. Associated symptoms include diaphoresis. Chest pain was relieved by sublingual nitroglycerin. Of note, also reports fevers as high as 101.3F over the past 3 days. No cough, rash, urinary or bowel symptoms. In the ED, he underwent extensive evaluation. BP 98/61, HR 84, RR 20, T 102.6F, 100% on 1 LNC. CBC, coag panel and CMP was done significant for lymphocyte count of 0.5, sodium 1:30, bicarb 18, BUN 34, creatinine 1.8, glucose 184, calcium 8.2, alk phos 167. Magnesium 2.2. Troponin 0.028. Flu, RSV, COVID-19 negative. EKG showed sinus rhythm with left bundle branch block. Chest x-ray showed small right pleural effusion and pulmonary vascular congestion. Patient is admitted for chest pain, rule out acute coronary syndrome and cardiology consultation. Workup from previous admission was reviewed. Cardiac cath 09/04/23 showed 70-80% distal left main, 100% ostial LAD with collateral, 80-90% ostial PDA, 80% proximal OM1. He has been evaluated by CT surgery in the past deemed to be poor surgical candidate for revascularization. Echocardiogram 09/01/23 showed EF 35-40% with anteroseptal, anterior wall hypokinesia, mild aortic stenosis. 12/06 Troponin increased to 2.55 this morning. Started on a Heparin drip at 12 units/kg/hr. Cardiology note reviewed, plans for cardiac cath tomorrow, NPO after midnight. 12/07 Tmax 101.7. Patient reports feeling sweaty and reports a headache. No chest pain. POC glucose 65-218 over the past 24H. Levemir discontinued due to hypoglycemia. He is NPO for possible cath, maintained on heparin drip at 8.11 units/kg/hr. Renal US is negative for obstructive uropathy. 12/08 Patient was seen and examined. Continues to have low grade fevers overni ght. No chest pain. Started on NS at 50 cc/hr yesterday to improve renal function by Cardiology. Levemir restarted at lowered dose of 10 units QD for hyperglycemia. ID consulted, CT AP, Pro-yusef, CRP, repeat UA ordered. CT AP shows right renal calculus 3 mm, small right pleural effusion with atelectasis. CRP 15.7. Procal 1.09. Started on Rocephin 2g IV QD and Azithromycin 500 mg PO QD for empiric treatment of PNA. APTT is 55.7. BMP Na 127, bicarb 17, BUN 33, Cr 1.69, glu 171, Ca 8.3. CBC Hg 11.5 Hct 35.7 Plt 125. Serum Osm 279. Hopeful plans for cardiac cath today. 12/09: Patient is noted to have had an attempt at left heart catheterization yesterday, however, access was difficult to establish. There will be a reattempt today. 12/12: Pt had code blue called overnight twice, mostly in asystole, but was in VFib once with one shock and ROSC. Assessment/plan: NSTEMI: Cardiac Arrest, Asystole, then VFib -Troponins uptrending. -ASA 81 mg PO QD. Lipitor 80 mg PO QHS. Plavix 75 mg PO QD. Coreg 3.125 mg PO BID. -Plans for cardiac cath 12/09, s/p LUCY to Left Main -Heparin gtt discontinued -Cardiology on board. -On midodrine ZOEY on CKD: Systolic CHF exacerbation with right pleural effusion and pulmonary vascular congestion: Hypervolemic Hyponatremia -Bumex 2mg IV once on 12/13, and 80IV lasix once on 12/12 with minimal UOP response -Nephrology to follow for dialysis -Vascular surgery consulted to place dialysis cath on 12/12 -Renal US negative. SIRS: Leukopenia, tachycardia, fever. -Unknown etiology. UA negative. -Flu RSV COVID negative. CRP at 32.7 and procal elevated at 2.79 -ID on board, now on zosyn Diabetes mellitus with hyperglycemia: -Highest POC glucose 285. -Hold levemir. ISS. -Accuchecks ACHS. Hypoglycemic precautions. Chronic conditions: history of CVA, chronic kidney disease, hypertension, BPH, hypothyroidism CODE STATUS: FULL CODE. DVT Prophylaxis: none GI Prophylaxis: Protonix PO Designated medical POA if patient is not able to make medical decisions for themselves: Daughter Objective - Vital Signs Vital signs: Vital Signs Temp 98.8 F 12/14/23 08:00 Pulse 93 12/14/23 10:15 Resp 21 12/14/23 10:15 BP 99/56 12/14/23 10:15 Pulse Ox 97 12/14/23 10:15 FiO2 50 12/14/23 08:00 Intake & Output 12/13/23 12/14/23 12/14/23 18:59 06:59 18:59 Intake Total 300.589 625.916 204.427 Output Total 35 45 80 Balance 265.589 580.916 124.427 Weight 75.1 kg Intake: IV 90 220 60 .9 NS 90 120 10 Piperacillin-Tazobactam 3 100 50 .375 gm In Sodium Chloride 0.9% 100 ml @ 25 mls/hr IVPB Q12HR [facility] Rx #:[id number] Intake, IV Titration 210.589 405.916 144.427 Amount Norepinephrine 32 mg In 10.589 121.861 60.733 Sodium Chloride 0.9% 218 ml @ 0.03 MCG/KG/MIN 1. 223 mls/hr IV .Q24H [facility] Rx#:[id number] propofoL 1,000 mg In 200 284.055 83.694 Empty Bag 1 bag @ 15 MCG/ KG/MIN 7.83 mls/hr IV . [id number] [facility] Rx#:[id number] Output: Urine 35 45 80 Other: Voiding Method Indwelling Catheter Indwelling Catheter - Labs CBC & Chem 7: 12/14/23 03:29 12/14/23 03:29 Labs: Abnormal Lab Results - Last 24 Hours (Table) 12/13/23 12/13/23 12/13/23 Range/Units 11:44 14:40 16:35 RBC (4.30-5.90) m/uL Hgb (13.0-17.5) gm/dL Hct (39.0-53.0) % Neutrophils # (1.3-7.7) k/uL Lymphocytes # (1.0-4.8) k/uL Sodium (137-145) mmol/L Chloride (98-107) mmol/L Carbon Dioxide (22-30) mmol/L BUN (9-20) mg/dL Creatinine (0.66-1.25) mg/dL Glucose (74-99) mg/dL POC Glucose (mg/dL) 222 H (70-110) mg/dL Calcium (8.4-10.2) mg/dL Magnesium (1.6-2.3) mg/dL Troponin I 2.530 H* (0.000-0.034) ng/mL C-Reactive Protein 32.7 H (<1.0) mg/dL Procalcitonin (0.02-0.09) ng/mL 12/13/23 12/13/23 12/14/23 Range/Units 16:35 19:38 00:01 RBC (4.30-5.90) m/uL Hgb (13.0-17.5) gm/dL Hct (39.0-53.0) % Neutrophils # (1.3-7.7) k/uL Lymphocytes # (1.0-4.8) k/uL Sodium (137-145) mmol/L Chloride (98-107) mmol/L Carbon Dioxide (22-30) mmol/L BUN (9-20) mg/dL Creatinine (0.66-1.25) mg/dL Glucose (74-99) mg/dL POC Glucose (mg/dL) 307 H 258 H (70-110) mg/dL Calcium (8.4-10.2) mg/dL Magnesium (1.6-2.3) mg/dL Troponin I (0.000-0.034) ng/mL C-Reactive Protein (<1.0) mg/dL Procalcitonin 2.79 H (0.02-0.09) ng/mL 12/14/23 12/14/23 12/14/23 Range/Units 03:29 03:29 06:23 RBC 3.38 L (4.30-5.90) m/uL Hgb 9.9 L (13.0-17.5) gm/dL Hct 29.5 L (39.0-53.0) % Neutrophils # 8.6 H (1.3-7.7) k/uL Lymphocytes # 0.7 L (1.0-4.8) k/uL Sodium 129 L (137-145) mmol/L Chloride 95 L (98-107) mmol/L Carbon Dioxide 19 L (22-30) mmol/L BUN 88 H (9-20) mg/dL Creatinine 5.81 H (0.66-1.25) mg/dL Glucose 242 H (74-99) mg/dL POC Glucose (mg/dL) 265 H (70-110) mg/dL Calcium 7.8 L (8.4-10.2) mg/dL Magnesium 2.4 H (1.6-2.3) mg/dL Troponin I (0.000-0.034) ng/mL C-Reactive Protein (<1.0) mg/dL Procalcitonin (0.02-0.09) ng/mL Microbiology - Last 24 Hours (Table) 12/12/23 22:00 Gram Stain - Preliminary Sputum
--- NOTE | 2023-12-14 10:51 | PN ---
PROGRESS NOTE Mr. Fraser is a gentleman with multivessel PCI. He underwent recently on the or stenting of the left main and ramus. He had a VFib arrest following that and subsequently an asystole arrest, he is on a ventilator, poor LV function, worsening creatinine more than 5.0. He has underlying diabetes as well. Vitals are stable. S1- S2 heard normally. Ventilator-assisted breath sounds are noted. Prognosis remains guarded. Options are somewhat limited. He has an ejection fraction in 30% to 35% range. He has been intubated and transferred to ICU yesterday. He is currently on some Levophed drip. We will continue current supportive care. Prognosis remains poor for this patient who has had multivessel interventions. I will await further input from Nephrology. Vitals are stable. S1-S2 heard normally. His systolic murmur audible at left sternal border and apex. Lungs revealed ventilator-assisted breath sounds. Abdomen is soft. Lower extremities reveal diminished pulses. Central nervous system assessment not performed. IMPRESSION: 1. Ischemic cardiomyopathy with multivessel PCI, limited options for percutaneous or surgical intervention. 2. Worsening renal failure, creatinine more than 5.0. 3. Type 2 diabetes. 4. Hypertension. Prognosis remains poor. Continue current supportive care. MMODL / IJN: [id number] /
[2023-12-14] MEDS: INSULIN DETEMIR (LEVEMIR) 100 UNIT/ML SYR SQ ONE (11:30)
--- NOTE | 2023-12-14 11:46 | P.PN ---
Subjective Patient is seen in follow-up for acute kidney injury on chronic kidney disease. Renal function continues to worsen. Oliguric. No response to IV Lasix and IV Bumex given this admission. Intubated. On Levophed. Vital signs are stable. On vasopressor support. General: Resting in bed. HEENT: Intubated. LUNGS: Scattered rhonchi. HEART: Rate and Rhythm are regular. ABDOMEN: No distention. EXTREMITITES: Trace edema. Objective - Vital Signs Vital signs: Vital Signs Temp 98.8 F 12/14/23 08:00 Pulse 95 12/14/23 11:37 Resp 22 12/14/23 11:00 BP 102/57 12/14/23 11:00 Pulse Ox 96 12/14/23 11:00 FiO2 50 12/14/23 08:00 Intake & Output 12/13/23 12/14/23 12/14/23 18:59 06:59 18:59 Intake Total 300.589 625.916 220.733 Output Total 35 45 80 Balance 265.589 580.916 140.733 Weight 75.1 kg Intake: IV 90 220 60 .9 NS 90 120 10 Piperacillin-Tazobactam 3 100 50 .375 gm In Sodium Chloride 0.9% 100 ml @ 25 mls/hr IVPB Q12HR [facility] Rx #:[id number] Intake, IV Titration 210.589 405.916 160.733 Amount Norepinephrine 32 mg In 10.589 121.861 60.733 Sodium Chloride 0.9% 218 ml @ 0.03 MCG/KG/MIN 1. 223 mls/hr IV .Q24H [facility] Rx#:[id number] propofoL 1,000 mg In 200 284.055 100.000 Empty Bag 1 bag @ 15 MCG/ KG/MIN 7.83 mls/hr IV . [id number] [facility] Rx#:[id number] Output: Urine 35 45 80 Other: Voiding Method Indwelling Catheter Indwelling Catheter Indwelling Catheter ABP, PAP, CO, CI - Last Documented Arterial Blood Pressure 112/47 - Labs CBC & Chem 7: 12/14/23 03:29 12/14/23 03:29 Labs: Abnormal Lab Results - Last 24 Hours (Table) 12/13/23 12/13/23 12/13/23 Range/Units 11:44 14:40 16:35 RBC (4.30-5.90) m/uL Hgb (13.0-17.5) gm/dL Hct (39.0-53.0) % Neutrophils # (1.3-7.7) k/uL Lymphocytes # (1.0-4.8) k/uL Sodium (137-145) mmol/L Chloride (98-107) mmol/L Carbon Dioxide (22-30) mmol/L BUN (9-20) mg/dL Creatinine (0.66-1.25) mg/dL Glucose (74-99) mg/dL POC Glucose (mg/dL) 222 H (70-110) mg/dL Calcium (8.4-10.2) mg/dL Magnesium (1.6-2.3) mg/dL Troponin I 2.530 H* (0.000-0.034) ng/mL C-Reactive Protein 32.7 H (<1.0) mg/dL Procalcitonin (0.02-0.09) ng/mL 12/13/23 12/13/23 12/14/23 Range/Units 16:35 19:38 00:01 RBC (4.30-5.90) m/uL Hgb (13.0-17.5) gm/dL Hct (39.0-53.0) % Neutrophils # (1.3-7.7) k/uL Lymphocytes # (1.0-4.8) k/uL Sodium (137-145) mmol/L Chloride (98-107) mmol/L Carbon Dioxide (22-30) mmol/L BUN (9-20) mg/dL Creatinine (0.66-1.25) mg/dL Glucose (74-99) mg/dL POC Glucose (mg/dL) 307 H 258 H (70-110) mg/dL Calcium (8.4-10.2) mg/dL Magnesium (1.6-2.3) mg/dL Troponin I (0.000-0.034) ng/mL C-Reactive Protein (<1.0) mg/dL Procalcitonin 2.79 H (0.02-0.09) ng/mL 12/14/23 12/14/23 12/14/23 Range/Units 03:29 03:29 06:23 RBC 3.38 L (4.30-5.90) m/uL Hgb 9.9 L (13.0-17.5) gm/dL Hct 29.5 L (39.0-53.0) % Neutrophils # 8.6 H (1.3-7.7) k/uL Lymphocytes # 0.7 L (1.0-4.8) k/uL Sodium 129 L (137-145) mmol/L Chloride 95 L (98-107) mmol/L Carbon Dioxide 19 L (22-30) mmol/L BUN 88 H (9-20) mg/dL Creatinine 5.81 H (0.66-1.25) mg/dL Glucose 242 H (74-99) mg/dL POC Glucose (mg/dL) 265 H (70-110) mg/dL Calcium 7.8 L (8.4-10.2) mg/dL Magnesium 2.4 H (1.6-2.3) mg/dL Troponin I (0.000-0.034) ng/mL C-Reactive Protein (<1.0) mg/dL Procalcitonin (0.02-0.09) ng/mL Microbiology - Last 24 Hours (Table) 12/12/23 22:00 Gram Stain - Preliminary Sputum Assessment and Plan Plan: Assessment: 1. Acute kidney injury secondary to hemodynamic ATN, cardiorenal syndrome and cardiac arrest. Also component of contrast-induced acute kidney injury. Creatinine up to 5.8 today. Oliguric. UA benign. No hydronephrosis noted on CAT scan. 2. 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 3. Coronary artery disease status postcardiac catheterization with stent placement on December 10, 2023. Not a candidate for CABG. 4. Metabolic acidosis secondary to acute kidney injury. Better. On oral bicarb. 5. Hyponatremia. Component of poor solute intake. Hypervolemic. 6. Diabetes mellitus. 7. Possible pneumonia on antibiotics. ID following. 8. Volume overload. 9. Status postcardiac arrest - V-fib and PEA. Plan: No response in urine output status post IV Lasix and Bumex given this admission. Wean FiO2 and vasopressors. Check phosphorus level. With worsening renal function, oliguria and volume overload, initiate renal p lacement therapy. Dialysis catheter placed this morning. Plan for first treatment of hemodialysis today and second treatment tomorrow. Prognosis guarded.
[2023-12-14 11:51] LABS: Glucose,Whole Blood 275 mg/dL (70-110)
--- NOTE | 2023-12-14 13:43 | OP ---
OPERATIVE REPORT DATE OF SERVICE : PROCEDURE PERFORMED: Placement of a right brachial arterial line. PREOPERATIVE DIAGNOSIS: Cardiac arrest x2. POSTOPERATIVE DIAGNOSIS: Cardiac arrest x2. ANESTHESIA USED: None deployed. DESCRIPTION OF PROCEDURE: The patient was placed in the supine position, the area of the right brachial region was prepared in a sterile fashion. Drapes were applied. The right brachial artery was palpated, cannulated easily, a guidewire was placed. A Cook's catheter was inserted over the guidewire. The guidewire was removed. Good blood flow, good waveform, no complications. Line was secured using 3.0 silk sutures. MMODL / IJN: [id number] /
--- NOTE | 2023-12-14 14:28 | P.PN ---
Subjective Progress Note Date: 12/14/23 Principal diagnosis: Cardiac arrest x 2 83-year-old male patient who sustained a cardiac yesterday at 2033 and following that the patient was moved to the intensive care unit. The patient was found in asystole. He received CPR based on ACLS protocol. Initial downtime was around 25 to 30 minutes and the patient received 4 rounds of epinephrine and CPR. During the process the patient was also found to be in V-fib and was defibrillated. He was brought into the intensive care unit where he had another code at 2106 and the second code was brief. He was placed on pressors. He is already intubated on mechanical ventilator.. This morning, the patient is on propofol which is running at 50 mcg/kg/min. He is hypotensive and is on norepinephrine 0.18 micrograms per kilogram per minute. He was a difficult IV access. Unable to insert an arterial line. The triple-lumen catheter was inserted in the right femoral vein for hemodynamic support and pressors. At this point in time, he is on assist-control mode at a rate of 20, tidal volume of 400, FiO2 of 70% with a PEEP of 5. The chest x-ray is showing adequate positioning of the ET tube. Orotracheal tube was initially in the right mainstem that was pulled out. No change in the bilateral opacities seen. The patient also has a moderate-sized right-sided pleural effusion along with pulm vascular congestion. Blood work from today shows a WBC count 9.9 with a hemoglobin 10.9 and a platelet count of 147. pH is 7.43 with a pCO2 of 34 and a pO2 of 84. Sodium levels at 127 and potassium levels at 4.3 with a serum bicarb of 17 and the BUN is at 80 with a creatinine of 4.2 as the patient has an acute on top of chronic kidney injury. This could have been also related to contrast as the patient's creatinine was gradually going up following his cardiac procedures. Troponin currently is at 3.07 and it is uptrending again post cardiac arrest. Cardiology was informed of those changes. No plans for any further intervention. In terms of his cardiac history, the patient is followed by Dr. Nelson who presents with symptoms of chest discomfort. He has a known history of CAD underwent stenting of the LAD in September [address] Remy and subsequently was readmitted about a week after with acute thrombosis and underwent angioplasty and thrombectomy. He underwent repeat cardiac catheterization in August and was found to have totally occluded LAD with distal left main disease but was felt to be a poor candidate for any surgical intervention. He presents with symptoms of chest discomfort and dyspnea at rest yesterday He usually has exertional angina pectoris with dyspnea on exertion. His activity is limited. He has evidence of cardiomyopathy with segmental wall motion abnormality consistent with his initial presentation with myocardial infarction.Patient is status attempted catheterization with Dr. Nelson on 12/09/2023. Dr. Nelson had difficulty obtaining access and his cardiac catheteriz ation was canceled. He underwent repeat cardiac catheterization with Dr. Remy with PCI of left main and ramus. Patient was hypotensive during the procedure. Patient was reevaluated today on 12/14/2023, patient remains in the ICU, intubated and mechanically ventilated. Patient was initially admitted on 12/05 with unstable angina, chest pain, severe coronary artery disease, and he was never felt to be a candidate for any surgical intervention. He had chronically occluded ostial LAD and ischemic cardiomyopathy. In addition he had chronic kidney disease and diabetes. As noted above the patient had cardiac arrest x 2 remains intubated and mechanically ventilated, he is on assist-control rate of 20 tidal volume 400 FiO2 50% PEEP of 5 ABG showed a pO2 of 88 pCO2 35 pH of 7.41. Patient may have developed anoxic brain injury, hence neurology will be consulted. Patient required a right brachial arterial line placement today, and this was done uneventfully. Patient will be started today on tube feeding. Looking back at the patient's history, patient clearly has a significant cardiac history, on 12/11, patient had V-fib cardiac arrest x 2 and he had CPR at 1 time it was 20 minutes the second time was 8 minutes of CPR. Obviously we are quite concerned about the possibility of anoxic brain injury. Chest x-ray is showing evidence of pulmonary edema, underlying pneumonia is not entirely ruled out but felt to be less likely patient is requiring norepinephrine at 0.16 mcg/kg/min also requiring propofol at 40 mcg/kg/min, FiO2 was decreased down to 45% today. Renal functioning is continuing to worse, patient is not making much urine, and spite of giving him Lasix and Bumex renal replacement therapy will be initiated today. Dialysis catheter was placed this morning. WBC count today is 10.3 hemoglobin is 9.9 basic metabolic profile is normal except for sodium of 129, BUN is up to 88 creatinine 5.81 blood sugar is 272 Objective - Vital Signs Vital signs: Vital Signs Temp 99.0 F 12/14/23 12:00 Pulse 98 12/14/23 13:15 Resp 22 12/14/23 13:15 BP 110/63 12/14/23 12:45 Pulse Ox 97 12/14/23 13:15 FiO2 50 12/14/23 12:00 Intake & Output 12/13/23 12/14/23 12/14/23 18:59 06:59 18:59 Intake Total 300.589 625.916 334.883 Output Total 35 45 145 Balance 265.589 580.916 189.883 Weight 75.1 kg 75.1 kg Intake: IV 90 220 135 .9 NS 90 120 10 Piperacillin-Tazobactam 3 100 125 .375 gm In Sodium Chloride 0.9% 100 ml @ 25 mls/hr IVPB Q12HR [facility] Rx #:[id number] Intake, IV Titration 210.589 405.916 199.883 Amount Norepinephrine 32 mg In 10.589 121.861 93.793 Sodium Chloride 0.9% 218 ml @ 0.03 MCG/KG/MIN 1. 223 mls/hr IV .Q24H [facility] Rx#:[id number] propofoL 1,000 mg In 200 284.055 106.090 Empty Bag 1 bag @ 15 MCG/ KG/MIN 7.83 mls/hr IV . [id number] [facility] Rx#:[id number] Output: Urine 35 45 145 Other: Voiding Method Indwelling Catheter Indwelling Catheter Indwelling Catheter ABP, PAP, CO, CI - Last Documented Arterial Blood Pressure 111/48 - Exam General: Revealed 83-year-old white male intubated mechanically ventilated, unresponsive to any stimuli. Head: Atraumatic, normocephalic Skin: Skin is warm and dry and no rashes or lesions are noted. Eye: Pupils are equal, round and reactive to light, extra-ocular movements are intact; there is normal conjunctiva bilaterally. Ears, nose, mouth and throat: There are moist mucous membranes and no oral lesions. Neck: The neck is supple, there is no tenderness or JVD. Endotracheal tube and orogastric tube are intact. Cardiovascular: Distant S1-S2, no S3 gallop. Respiratory: Fine crackles at the bases noted bilaterally. Gastrointestinal: Soft, non-distended, non-tender abdomen without masses or organomegaly noted. There is no rebound or guarding present. Bowel sounds are unremarkable. Back: There is no tenderness to palpation in the midline. There is no obvious deformity. Musculoskeletal: Normal ROM, no tenderness, 2+ bipedal edema noted.. There is no calf tenderness Neurological: Patient is unresponsive to any stimuli, withdraws to deep painful stimuli noted during placement of an arterial line Psychiatric: Not assessed patient is sedated. - Labs CBC & Chem 7: 12/14/23 03:29 12/14/23 03: Labs: Abnormal Lab Results - Last 24 Hours (Table) 12/13/23 12/13/23 12/13/23 Range/Units 14:40 16:35 16:35 RBC (4.30-5.90) m/uL Hgb (13.0-17.5) gm/dL Hct (39.0-53.0) % Neutrophils # (1.3-7.7) k/uL Lymphocytes # (1.0-4.8) k/uL Sodium (137-145) mmol/L Chloride (98-107) mmol/L Carbon Dioxide (22-30) mmol/L BUN (9-20) mg/dL Creatinine (0.66-1.25) mg/dL Glucose (74-99) mg/dL POC Glucose (mg/dL) (70-110) mg/dL Calcium (8.4-10.2) mg/dL Magnesium (1.6-2.3) mg/dL Troponin I 2.530 H* (0.000-0.034) ng/mL C-Reactive Protein 32.7 H (<1.0) mg/dL Procalcitonin 2.79 H (0.02-0.09) ng/mL 12/13/23 12/14/23 12/14/23 Range/Units 19:38 00:01 03:29 RBC 3.38 L (4.30-5.90) m/uL Hgb 9.9 L (13.0-17.5) gm/dL Hct 29.5 L (39.0-53.0) % Neutrophils # 8.6 H (1.3-7.7) k/uL Lymphocytes # 0.7 L (1.0-4.8) k/uL Sodium (137-145) mmol/L Chloride (98-107) mmol/L Carbon Dioxide (22-30) mmol/L BUN (9-20) mg/dL Creatinine (0.66-1.25) mg/dL Glucose (74-99) mg/dL POC Glucose (mg/dL) 307 H 258 H (70-110) mg/dL Calcium (8.4-10.2) mg/dL Magnesium (1.6-2.3) mg/dL Troponin I (0.000-0.034) ng/mL C-Reactive Protein (<1.0) mg/dL Procalcitonin (0.02-0.09) ng/mL 12/14/23 12/14/23 12/14/23 Range/Units 03:29 06:23 11:50 RBC (4.30-5.90) m/uL Hgb (13.0-17.5) gm/dL Hct (39.0-53.0) % Neutrophils # (1.3-7.7) k/uL Lymphocytes # (1.0-4.8) k/uL Sodium 129 L (137-145) mmol/L Chloride 95 L (98-107) mmol/L Carbon Dioxide 19 L (22-30) mmol/L BUN 88 H (9-20) mg/dL Creatinine 5.81 H (0.66-1.25) mg/dL Glucose 242 H (74-99) mg/dL POC Glucose (mg/dL) 265 H 275 H (70-110) mg/dL Calcium 7.8 L (8.4-10.2) mg/dL Magnesium 2.4 H (1.6-2.3) mg/dL Troponin I (0.000-0.034) ng/mL C-Reactive Protein (<1.0) mg/dL Procalcitonin (0.02-0.09) ng/mL Microbiology - Last 24 Hours (Table) 12/12/23 22:00 Gram Stain - Preliminary Sputum Assessment and Plan Assessment: Impression: Cardiac arrest x 2 Severe coronary artery disease and acute non-ST elevation myocardial infarction Acute hypoxic respiratory failure secondary to above Cardiogenic shock 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 brain injury due to the downtime Severe ischemic cardiomyopathy and LV dysfunction with ejection fraction of 35 to 40% History of CVA History of medical debility and multiple comorbidities Type 2 diabetes Dyslipidemia Acute kidney injury patient will require renal replacement therapy this is most likely secondary to acute tubular necrosis History of underlying coronary artery disease with previous stent of LAD September 22, 2001 3, complicated by acute thrombosis requiring angioplasty and thrombectomy repeat cardiac catheterization 09/12 showed totally occluded LAD w ith distal left main disease felt to be poor candidate for surgical intervention Commendation: Continue ventilatory support FiO2 down to 45% Continue hemodynamic support patient is on propofol at 0.16 mcg/kg/min Continue aspirin and Plavix Nutritional support/enteral feeding restarted today Daily assessment of mental status off sedation starting today if possible and will be done daily Neurology to see on consultation. Discussed CODE STATUS with family and update on his condition once more inf ormation is available to me. Agree with hemodialysis considering the patient developed severe acute kidney injury Continue GI and DVT prophylaxis Continue bicarb Continue bronchodilators and updrafts Continue statins Condition is critical Critical care time is over 30 minutes not including the time spent on procedures will continue to monitor in the ICU Time with Patient: Greater than 30
--- NOTE | 2023-12-14 14:40 | P.CNNES ---
History of Present Illness Consult date: 12/14/23 Requesting physician: April Dodd Reason for Consult: ams, cardiac arrest History of Present Illness: This is an 83-year-old gentleman with multiple medical issues who presents because of chest pain on 12/06/2023. History is obtained from primary team as well as medical record that. Neurology is consulted for altered mental status with cardiac arrest. During this hospital stay patient had cardiac cath and was on heparin drip. Per the primary team is seems on 12/12/2023 at nighttime patient had the CODE BLUE in which he was asystole on telemetry unresponsive and pulseless and CPR was initiated. Patient was noted to have V. fib then he was shocked. He was given epinephrine IV push 5. Wyatt was subsequently and attained. Then the patient had another episode of asystole shortly after that same night when he was given epinephrine push 4 with persistent asystole and then Wyatt was achieved. It seems to the patient was down for a total of 23 minutes. Patient is intubated on a ventilator. The patient was on IV propofol earlier today. Was felt the patient had the unstable angina/an STEMI status post stenting of the left main and ramus. Some of the workup during his hospital visit consisted of. Sodium is 129 Creatinine is 5.81 Review of Systems Review of systems Limited but the pertinent positive and negative as per HPI. Past Medical History Past Medical History: CVA/TIA, Diabetes Mellitus, Hypertension, Myocardial Infarction (ME) Additional Past Medical History / Comment(s): Stroke in December of 2021 Last Myocardial Infarction Date:: 10/03/22 History of Any Multi-Drug Resistant Organisms: None Reported Past Surgical History: Orthopedic Surgery Additional Past Surgical History / Comment(s): Urethral surgery-unsure of date Past Anesthesia/Blood Transfusion Reactions: No Reported Reaction Additional Past Anesthesia/Blood Transfusion Reaction / Comment(s): never had blood transfusion Date of Last Stent Placement:: 10/03/2022 Past Psychological History: No Psychological Hx Reported, Depression, PTSD Smoking Status: Former smoker - Past Family History Father Family Medical History: Hypertension Medications and Allergies Home Medications Medication Instructions Recorded Confirmed Type Aspirin [Pershing Aspirin EC] 81 mg PO DAILY 10/03/22 12/06/23 History Atorvastatin Calcium [Lipitor] 80 mg PO HS 10/03/22 12/06/23 History Carboxymethylcellulose Sodium 1 drop BOTH EYES QID 10/03/22 12/06/23 History [Thera Tears] Finasteride [Proscar] 5 mg PO DAILY 10/03/22 12/06/23 History Insulin Glargine,Hum.rec.anlog 35 units SQ DAILY 10/03/22 12/06/23 History [Insulin Glargine Solostar] Magnesium Oxide 400 mg PO BID 10/03/22 12/06/23 History Omeprazole [PriLOSEC] 20 mg PO DAILY 10/03/22 12/06/23 History Sennosides/Docusate Sodium [Senna 1 tab PO DAILY PRN 10/03/22 12/06/23 History Plus 8.6-50 mg Tablet] Tamsulosin HCl [Flomax] 0.4 mg PO BID 10/03/22 12/06/23 History glipiZIDE [Glucotrol] 20 mg PO AC-BID 10/03/22 12/06/23 History Clopidogrel [Plavix] 75 mg PO DAILY #90 tab 10/07/22 12/06/23 Rx Nitroglycerin Sl Tabs [Nitrostat] 0.4 mg SL Q5M PRN 11/05/22 12/06/23 History Furosemide [Lasix] 40 mg PO DAILY #30 tablet 11/08/22 12/06/23 Rx carvediloL [Coreg] 6.25 mg PO BID-W/MEALS #60 tab 11/08/22 12/06/23 Rx DULoxetine HCL [Cymbalta] 60 mg PO DAILY 08/30/23 12/06/23 History Empagliflozin [Jardiance] 25 mg PO DAILY 08/30/23 12/06/23 History Levothyroxine Sodium [Synthroid] 25 mcg PO DAILY 08/30/23 12/06/23 History Mv-Min/Folic/K1/Lycopen/Lutein 1 tab PO DAILY 08/30/23 12/06/23 History [Centrum Silver Men Tablet] Losartan [Cozaar] 12.5 mg PO DAILY 30 Days #15 tab 09/11/23 12/06/23 Rx Budesonide [Pulmicort] 1 mg INHALATION RT-BID 12/06/23 12/06/23 History Ipratropium-Albuterol Nebulize 3 ml INHALATION RT-QID 12/06/23 12/06/23 History [Duoneb 0.5 mg-3 mg/3 ml Soln] cephALEXin [Keflex] 750 mg PO Q12HR 12/06/23 12/06/23 History Allergies Allergy/AdvReac Type Severity Reaction Status Date / Time Sulfa (Sulfonamide Allergy lips swell Verified 12/06/23 10:40 Antibiotics) Physical Examination - Vital Signs Vital Signs: Vital Signs Temp Pulse Resp BP Pulse Ox FiO2 12/14/23 13:15 98 22 97 12/14/23 13:00 105 H 25 H 96 12/14/23 12:45 107 H 26 H 110/63 96 12/14/23 12:30 105 H 25 H 96 12/14/23 12:15 101 H 31 H 96 12/14/23 12:00 99.0 F 100 22 107/56 96 50 12/14/23 11:45 96 23 96 12/14/23 11:37 95 12/14/23 11:30 93 24 96 12/14/23 11:22 94 12/14/23 11:15 94 23 96 12/14/23 11:00 94 22 102/57 96 12/14/23 10:45 93 23 102/58 96 12/14/23 10:30 92 21 101/56 97 12/14/23 10:15 93 21 99/56 97 12/14/23 10:00 94 23 99/54 96 12/14/23 09:45 94 23 98/52 96 12/14/23 09:30 95 22 103/57 96 12/14/23 09:15 97 23 116/57 96 12/14/23 09:00 98 25 H 116/56 96 12/14/23 08:45 96 22 112/59 96 12/14/23 08:30 96 22 115/57 96 12/14/23 08:17 95 12/14/23 08:15 96 22 118/59 97 12/14/23 08:04 96 12/14/23 08:00 98.8 F 98 25 H 117/59 97 50 12/14/23 07:45 92 23 117/58 97 12/14/23 07:41 50 12/14/23 07:30 93 22 116/58 97 12/14/23 07:15 95 24 115/59 97 12/14/23 07:00 96 24 116/57 97 03/25/24 06:45 96 25 H 114/57 97 0325/24 06:30 97 23 106/55 97 0325/24 06:15 96 15 113/57 97 25/24 06:00 97 22 113/59 97 25/24 05:45 97 24 104/55 97 25/24 05:30 95 22 111/53 97 25/24 05:15 96 21 110/54 97 12/13/24 05:00 96 24 110/55 97 25/24 04:45 93 23 112/54 97 25/24 04:30 93 22 112/53 97 12/13/24 04:15 96 23 110/53 97 12/13/24 04:07 50 12/13/24 04:00 98.9 F 94 21 108/53 97 50 25/24 03:45 92 22 108/55 97 12/13/24 03:30 93 21 106/52 97 12/13/24 03:15 96 21 108/50 96 12/13/24 03:00 95 21 99/56 96 25/24 02:45 98 24 113/54 95 25/24 02:30 99 20 112/59 95 25/24 02:15 113 H 26 H 106/57 97 25/24 02:00 101 H 22 109/54 97 25/24 01:45 100 21 105/54 97 25/24 01:30 101 H 23 107/56 97 25/24 01:15 102 H 23 106/55 97 0325/24 01:00 102 H 24 105/54 97 0325/24 00:45 104 H 24 106/55 97 0325/24 00:37 50 0325/24 00:30 104 H 21 102/53 98 03/25/24 00:15 102 H 23 107/53 96 0325/24 00:11 104 H 22 107/53 97 25/24 00:00 99.6 F 105 H 23 106/54 97 50 0324/24 23:45 104 H 24 105/53 97 03/24/24 23:30 105 H 24 111/55 97 0324/24 23:15 103 H 21 106/56 97 0324/24 23:00 104 H 25 H 105/53 96 03/24/24 22:45 105 H 23 105/55 97 03/24/24 22:30 105 H 24 105/53 97 03/24/24 22:15 105 H 24 105/53 97 03/24/24 22:00 104 H 23 103/55 97 03/24/24 21:45 105 H 23 101/55 97 03/24/24 21:30 105 H 24 104/52 97 03/24/24 21:15 106 H 24 104/52 98 03/24/24 21:00 108 H 24 104/56 97 03/24/24 20:45 108 H 26 H 103/57 97 03/24/24 20:40 108 H 03/24/24 20:30 105 H 23 109/61 98 03/24/24 20:26 108 H /24/24 20:25 50 03/24/24 20:15 110 H 28 H 104/55 96 03/24/24 20:00 99.4 F 106 H 24 105/54 97 50 03/24/24 19:45 105 H 22 103/53 97 03/24/24 19:30 105 H 21 103/53 98 03/24/24 19:15 105 H 23 103/49 98 03/24/24 19:00 105 H 25 H 105/54 97 03/24/24 18:45 105 H 26 H 105/59 98 03/24/24 18:30 105 H 23 105/53 97 03/24/24 18:15 105 H 23 107/54 97 03/24/24 18:00 104 H 23 104/53 97 03/24/24 17:45 104 H 22 101/56 97 03/24/24 17:30 105 H 20 105/54 97 03/24/24 17:15 105 H 20 106/54 96 03/24/24 17:00 104 H 23 105/56 97 50 03/24/24 16:47 50 03/24/24 16:46 96 03/24/24 16:45 104 H 24 108/53 97 03/24/24 16:32 96 03/24/24 16:31 70 03/24/24 16:30 101 H 20 106/48 99 03/24/24 16:15 101 H 21 105/48 99 03/24/24 16:00 102 H 21 106/48 99 50 03/24/24 15:45 103 H 23 105/45 99 12/13/23 15:30 104 H 23 106/48 98 12/13/23 15:15 105 H 24 99/50 98 12/13/23 15:00 105 H 25 H 102/49 98 12/13/23 14:45 106 H 23 102/44 98 12/13/23 14:30 108 H 26 H 102/49 98 Intake and Output 12/13/23 12/14/23 12/14/23 22:59 06:59 14:59 Intake Total 280 485.916 334.883 Output Total 10 45 145 Balance 270 440.916 189.883 Intake: IV 180 80 135 .9 NS 80 80 10 Piperacillin-Tazobactam 3 100 125 .375 gm In Sodium Chloride 0.9% 100 ml @ 25 mls/hr IVPB Q12HR YASEMIN Rx #:[id number] Intake, IV Titration 100 405.916 199.883 Amount Norepinephrine 32 mg In 121.861 93.793 Sodium Chloride 0.9% 218 ml @ 0.03 MCG/KG/MIN 1. 223 mls/hr IV .Q24H YASEMIN Rx#:[id number] propofoL 1,000 mg In 100 284.055 106.090 Empty Bag 1 bag @ 15 MCG/ KG/MIN 7.83 mls/hr IV . [id number] YASEMIN Rx#:[id number] Output: Urine 10 45 145 Other: Voiding Method Indwelling Catheter Indwelling Catheter Indwelling Catheter Weight 75.1 kg 75.1 kg ABP, PAP, CO, CI - Last 8 Hours Arterial Blood Pressure 111/48 Arterial Blood Pressure 109/47 Arterial Blood Pressure 110/47 Arterial Blood Pressure 116/49 Arterial Blood Pressure 118/50 Arterial Blood Pressure 116/49 Arterial Blood Pressure 111/45 Arterial Blood Pressure 113/46 Arterial Blood Pressure 113/47 Arterial Blood Pressure 112/47 GENERAL: The patient is lying in bed and does not appear in acute distress. LUNG: Intubated on ventilator. NEUROLOGICAL: Limited. Is on IV Propofol 50mcg/kg/min and held for 30 minutes. Is comatose. GCS 4 ( E2, VT1, M1) Patient opens his eyes to verbal stimuli. Primary gaze is midline. Pupils are round about 5 mm and reactive to light bilaterally. No facial weakness. Pa tient does not follow any commands or attempt to verbalize the. Has intact gag and cough. His breathing over the vent Motor is no spontaneous movement noted. He grimaces face to painful stimuli bilaterally over upper extremity Reflexes is 1 positive throughout. Plantars are mute bilaterally. Results - Laboratory Findings CBC and BMP: 12/14/23 03:29 12/14/23 03:29 Abnormal Lab Findings: Abnormal Labs 12/06/23 12/06/23 12/06/23 08:31 08:31 11:22 WBC RBC Hgb Hct Plt Count Neutrophils # Neutrophils # (Manual) Lymphocytes # 0.5 L Lymphocytes # (Manual) APTT ABG pH ABG pCO2 ABG HCO3 ABG O2 Saturation Sodium 130 L Chloride Carbon Dioxide 18 L BUN 34 H Creatinine 1.80 H Glucose 184 H POC Glucose (mg/dL) 167 H Plasma Lactic Acid Mahesh Calcium 8.2 L Magnesium AST ALT Alkaline Phosphatase 167 H Troponin I C-Reactive Protein Total Protein Albumin Triglycerides HDL Cholesterol Procalcitonin Urine Glucose (UA) Urine Ketones Ur Random Sodium 12/06/23 12/06/23 12/06/23 11:48 12:35 16:34 WBC RBC Hgb Hct Plt Count Neutrophils # Neutrophils # (Manual) Lymphocytes # Lymphocytes # (Manual) APTT ABG pH ABG pCO2 ABG HCO3 ABG O2 Saturation Sodium Chloride Carbon Dioxide BUN Creatinine Glucose POC Glucose (mg/dL) 244 H Plasma Lactic Acid Mahesh Calcium Magnesium AST ALT Alkaline Phosphatase Troponin I 0.037 H* C-Reactive Protein Total Protein Albumin Triglycerides HDL Cholesterol Procalcitonin Urine Glucose (UA) 4+ H Urine Ketones Ur Random Sodium 12/06/23 12/06/23 12/06/23 19:20 19:20 21:02 WBC RBC Hgb Hct Plt Count Neutrophils # Neutrophils # (Manual) Lymphocytes # 0.4 L Lymphocytes # (Manual) APTT 195.4 H* ABG pH ABG pCO2 ABG HCO3 ABG O2 Saturation Sodium Chloride Carbon Dioxide BUN Creatinine Glucose POC Glucose (mg/dL) 213 H Plasma Lactic Acid Mahesh Calcium Magnesium AST ALT Alkaline Phosphatase Troponin I C-Reactive Protein Total Protein Albumin Triglycerides HDL Cholesterol Procalcitonin Urine Glucose (UA) Urine Ketones Ur Random Sodium 12/07/23 12/07/23 12/07/23 00:19 06:31 06:31 WBC RBC Hgb Hct Plt Count Neutrophils # Neutrophils # (Manual) Lymphocytes # Lymphocytes # (Manual) APTT 56.7 H ABG pH ABG pCO2 ABG HCO3 ABG O2 Saturation Sodium 130 L Chloride Carbon Dioxide 17 L BUN 43 H Creatinine 2.12 H Glucose 189 H POC Glucose (mg/dL) Plasma Lactic Acid Mahesh Calcium 7.9 L Magnesium AST ALT Alkaline Phosphatase Troponin I C-Reactive Protein Total Protein Albumin Triglycerides 179.00 H HDL Cholesterol 20.60 L Procalcitonin Urine Glucose (UA) Urine Ketones Ur Random Sodium 12/07/23 12/07/23 12/07/23 06:31 06:31 06:31 WBC 3.5 L RBC 4.20 L Hgb 12.1 L Hct 36.6 L Plt Count Neutrophils # Neutrophils # (Manual) Lymphocytes # 0.4 L Lymphocytes # (Manual) APTT 50.5 H ABG pH ABG pCO2 ABG HCO3 ABG O2 Saturation Sodium Chloride Carbon Dioxide BUN Creatinine Glucose POC Glucose (mg/dL) Plasma Lactic Acid Mahesh Calcium Magnesium AST ALT Alkaline Phosphatase Troponin I 2.550 H* C-Reactive Protein Total Protein Albumin Triglycerides HDL Cholesterol Procalcitonin Urine Glucose (UA) Urine Ketones Ur Random Sodium 12/07/23 12/07/23 12/07/23 06:35 11:19 16:21 WBC RBC Hgb Hct Plt Count Neutrophils # Neutrophils # (Manual) Lymphocytes # Lymphocytes # (Manual) APTT ABG pH ABG pCO2 ABG HCO3 ABG O2 Saturation Sodium Chloride Carbon Dioxide BUN Creatinine Glucose POC Glucose (mg/dL) 197 H 193 H 218 H Plasma Lactic Acid Mahesh Calcium Magnesium AST ALT Alkaline Phosphatase Troponin I C-Reactive Protein Total Protein Albumin Triglycerides HDL Cholesterol Procalcitonin Urine Glucose (UA) Urine Ketones Ur Random Sodium 12/07/23 12/08/23 12/08/23 20:13 06:03 06:17 WBC RBC Hgb Hct Plt Count Neutrophils # Neutrophils # (Manual) Lymphocytes # Lymphocytes # (Manual) APTT ABG pH ABG pCO2 ABG HCO3 ABG O2 Saturation Sodium Chloride Carbon Dioxide BUN Creatinine Glucose POC Glucose (mg/dL) 161 H 65 L 66 L Plasma Lactic Acid Mahesh Calcium Magnesium AST ALT Alkaline Phosphatase Troponin I C-Reactive Protein Total Protein Albumin Triglycerides HDL Cholesterol Procalcitonin Urine Glucose (UA) Urine Ketones Ur Random Sodium 12/08/23 12/08/23 12/08/23 09:33 09:33 15:02 WBC RBC Hgb Hct Plt Count Neutrophils # Neutrophils # (Manual) Lymphocytes # Lymphocytes # (Manual) APTT 51.4 H ABG pH ABG pCO2 ABG HCO3 ABG O2 Saturation Sodium 128 L Chloride Carbon Dioxide 20 L BUN 41 H Creatinine 2.08 H Glucose 114 H POC Glucose (mg/dL) Plasma Lactic Acid Mahesh Calcium 8.2 L Magnesium AST ALT Alkaline Phosphatase Troponin I C-Reactive Protein 15.7 H Total Protein Albumin Triglycerides HDL Cholesterol Procalcitonin Urine Glucose (UA) Urine Ketones Ur Random Sodium 12/08/23 12/08/23 12/08/23 15:02 16:17 20:24 WBC RBC Hgb Hct Plt Count Neutrophils # Neutrophils # (Manual) Lymphocytes # Lymphocytes # (Manual) APTT ABG pH ABG pCO2 ABG HCO3 ABG O2 Saturation Sodium Chloride Carbon Dioxide BUN Creatinine Glucose POC Glucose (mg/dL) 208 H 226 H Plasma Lactic Acid Mahesh Calcium Magnesium AST ALT Alkaline Phosphatase Troponin I C-Reactive Protein Total Protein Albumin Triglycerides HDL Cholesterol Procalcitonin 1.09 H Urine Glucose (UA) Urine Ketones Ur Random Sodium 12/09/23 12/09/23 12/09/23 05:56 06:16 06:16 WBC RBC Hgb Hct Plt Count Neutrophils # Neutrophils # (Manual) Lymphocytes # Lymphocytes # (Manual) APTT 55.7 H ABG pH ABG pCO2 ABG HCO3 ABG O2 Saturation Sodium 127 L Chloride Carbon Dioxide 17 L BUN 33 H Creatinine 1.69 H Glucose 171 H POC Glucose (mg/dL) 284 H Plasma Lactic Acid Mahesh Calcium 8.3 L Magnesium AST ALT Alkaline Phosphatase Troponin I C-Reactive Protein Total Protein Albumin Triglycerides HDL Cholesterol Procalcitonin Urine Glucose (UA) Urine Ketones Ur Random Sodium 12/09/23 12/09/23 12/09/23 08:11 09:28 11:20 WBC RBC 4.12 L Hgb 11.5 L Hct 35.7 L Plt Count 125 L Neutrophils # Neutrophils # (Manual) Lymphocytes # Lymphocytes # (Manual) APTT ABG pH ABG pCO2 ABG HCO3 ABG O2 Saturation Sodium Chloride Carbon Dioxide BUN Creatinine Glucose POC Glucose (mg/dL) 216 H 290 H Plasma Lactic Acid Mahesh Calcium Magnesium AST ALT Alkaline Phosphatase Troponin I C-Reactive Protein Total Protein Albumin Triglycerides HDL Cholesterol Procalcitonin Urine Glucose (UA) Urine Ketones Ur Random Sodium 12/09/23 12/09/23 12/09/23 16:19 16:44 19:20 WBC RBC Hgb Hct Plt Count Neutrophils # Neutrophils # (Manual) Lymphocytes # Lymphocytes # (Manual) APTT ABG pH ABG pCO2 ABG HCO3 ABG O2 Saturation Sodium Chloride Carbon Dioxide BUN Creatinine Glucose POC Glucose (mg/dL) 322 H Plasma Lactic Acid Mahesh Calcium Magnesium AST ALT Alkaline Phosphatase Troponin I C-Reactive Protein Total Protein Albumin Triglycerides HDL Cholesterol Procalcitonin Urine Glucose (UA) 4+ H Urine Ketones 1+ H Ur Random Sodium <20 L 12/09/23 12/10/23 12/10/23 20:08 06:04 07:26 WBC RBC Hgb Hct Plt Count Neutrophils # Neutrophils # (Manual) Lymphocytes # Lymphocytes # (Manual) APTT 48.8 H ABG pH ABG pCO2 ABG HCO3 ABG O2 Saturation Sodium Chloride Carbon Dioxide BUN Creatinine Glucose POC Glucose (mg/dL) 175 H 243 H Plasma Lactic Acid Mahesh Calcium Magnesium AST ALT Alkaline Phosphatase Troponin I C-Reactive Protein Total Protein Albumin Triglycerides HDL Cholesterol Procalcitonin Urine Glucose (UA) Urine Ketones Ur Random Sodium 12/10/23 12/10/23 12/10/23 11:15 11:31 11:31 WBC RBC 4.00 L Hgb 11.2 L Hct 35.5 L Plt Count 100 L Neutrophils # Neutrophils # (Manual) Lymphocytes # 0.7 L Lymphocytes # (Manual) APTT ABG pH ABG pCO2 ABG HCO3 ABG O2 Saturation Sodium 130 L Chloride Carbon Dioxide 12 L BUN 43 H Creatinine 2.19 H Glucose 232 H POC Glucose (mg/dL) 230 H Plasma Lactic Acid Mahesh Calcium 8.0 L Magnesium AST ALT Alkaline Phosphatase Troponin I C-Reactive Protein Total Protein Albumin Triglycerides HDL Cholesterol Procalcitonin Urine Glucose (UA) Urine Ketones Ur Random Sodium 12/10/23 12/10/23 12/10/23 17:13 17:32 19:53 WBC RBC Hgb Hct Plt Count Neutrophils # Neutrophils # (Manual) Lymphocytes # Lymphocytes # (Manual) APTT ABG pH ABG pCO2 ABG HCO3 ABG O2 Saturation Sodium Chloride Carbon Dioxide BUN Creatinine Glucose POC Glucose (mg/dL) 217 H 213 H 263 H Plasma Lactic Acid Mahesh Calcium Magnesium AST ALT Alkaline Phosphatase Troponin I C-Reactive Protein Total Protein Albumin Triglycerides HDL Cholesterol Procalcitonin Urine Glucose (UA) Urine Ketones Ur Random Sodium 12/11/23 12/11/23 12/11/23 06:08 08:16 10:04 WBC RBC 3.81 L Hgb 11.1 L Hct 34.4 L Plt Count 104 L Neutrophils # Neutrophils # (Manual) Lymphocytes # 0.5 L Lymphocytes # (Manual) APTT ABG pH ABG pCO2 ABG HCO3 ABG O2 Saturation Sodium Chloride Carbon Dioxide BUN Creatinine Glucose POC Glucose (mg/dL) 298 H 312 H Plasma Lactic Acid Mahesh Calcium Magnesium AST ALT Alkaline Phosphatase Troponin I C-Reactive Protein Total Protein Albumin Triglycerides HDL Cholesterol Procalcitonin Urine Glucose (UA) Urine Ketones Ur Random Sodium 12/11/23 12/11/23 12/11/23 10:04 11:38 16:33 WBC RBC Hgb Hct Plt Count Neutrophils # Neutrophils # (Manual) Lymphocytes # Lymphocytes # (Manual) APTT ABG pH ABG pCO2 ABG HCO3 ABG O2 Saturation Sodium 124 L Chloride Carbon Dioxide 10 L BUN 54 H Creatinine 2.49 H Glucose 316 H POC Glucose (mg/dL) 392 H 306 H Plasma Lactic Acid Mahesh Calcium 8.1 L Magnesium AST ALT Alkaline Phosphatase Troponin I C-Reactive Protein Total Protein Albumin Triglycerides HDL Cholesterol Procalcitonin Urine Glucose (UA) Urine Ketones Ur Random Sodium 12/11/23 12/12/23 12/12/23 19:53 06:14 09:40 WBC RBC Hgb Hct Plt Count Neutrophils # Neutrophils # (Manual) Lymphocytes # Lymphocytes # (Manual) APTT ABG pH 7.33 L ABG pCO2 34 L ABG HCO3 18 L ABG O2 Saturation Sodium Chloride Carbon Dioxide BUN Creatinine Glucose POC Glucose (mg/dL) 281 H 248 H Plasma Lactic Acid Mahesh Calcium Magnesium AST ALT Alkaline Phosphatase Troponin I C-Reactive Protein Total Protein Albumin Triglycerides HDL Cholesterol Procalcitonin Urine Glucose (UA) Urine Ketones Ur Random Sodium 12/12/23 12/12/23 12/12/23 11:29 12:28 12:28 WBC RBC 3.69 L Hgb 10.7 L Hct 33.1 L Plt Count 115 L Neutrophils # Neutrophils # (Manual) Lymphocytes # 0.6 L Lymphocytes # (Manual) APTT ABG pH ABG pCO2 ABG HCO3 ABG O2 Saturation Sodium 126 L Chloride 97 L Carbon Dioxide 15 L BUN 70 H Creatinine 3.72 H Glucose 230 H POC Glucose (mg/dL) 282 H Plasma Lactic Acid Mahesh Calcium Magnesium 2.5 H AST ALT Alkaline Phosphatase Troponin I C-Reactive Protein Total Protein Albumin Triglycerides HDL Cholesterol Procalcitonin Urine Glucose (UA) Urine Ketones Ur Random Sodium 12/12/23 12/12/23 12/12/23 16:09 19:47 20:36 WBC RBC Hgb Hct Plt Count Neutrophils # Neutrophils # (Manual) Lymphocytes # Lymphocytes # (Manual) APTT ABG pH ABG pCO2 ABG HCO3 ABG O2 Saturation Sodium Chloride Carbon Dioxide BUN Creatinine Glucose POC Glucose (mg/dL) 250 H 173 H 153 H Plasma Lactic Acid Mahesh Calcium Magnesium AST ALT Alkaline Phosphatase Troponin I C-Reactive Protein Total Protein Albumin Triglycerides HDL Cholesterol Procalcitonin Urine Glucose (UA) Urine Ketones Ur Random Sodium 12/12/23 12/12/23 12/12/23 21:05 21:05 21:05 WBC RBC 3.81 L Hgb 11.0 L Hct 34.3 L Plt Count 124 L Neutrophils # Neutrophils # (Manual) Lymphocytes # Lymphocytes # (Manual) APTT ABG pH ABG pCO2 ABG HCO3 ABG O2 Saturation Sodium 130 L Chloride 95 L Carbon Dioxide BUN 77 H Creatinine 3.86 H Glucose 188 H POC Glucose (mg/dL) Plasma Lactic Acid Mahesh Calcium Magnesium 2.6 H AST 121 H ALT 80 H Alkaline Phosphatase 231 H Troponin I 1.730 H* C-Reactive Protein Total Protein 5.6 L Albumin 2.8 L Triglycerides HDL Cholesterol Procalcitonin Urine Glucose (UA) Urine Ketones Ur Random Sodium 12/12/23 12/12/23 12/13/23 22:30 23:02 01:52 WBC RBC Hgb Hct Plt Count Neutrophils # Neutrophils # (Manual) Lymphocytes # Lymphocytes # (Manual) APTT ABG pH ABG pCO2 ABG HCO3 ABG O2 Saturation 98.0 H Sodium Chloride Carbon Dioxide BUN Creatinine Glucose POC Glucose (mg/dL) Plasma Lactic Acid Mahesh 3.9 H* 2.4 H* Calcium Magnesium AST ALT Alkaline Phosphatase Troponin I C-Reactive Protein Total Protein Albumin Triglycerides HDL Cholesterol Procalcitonin Urine Glucose (UA) Urine Ketones Ur Random Sodium 12/13/23 12/13/23 12/13/23 04:40 04:40 04:40 WBC RBC 3.83 L Hgb 10.9 L Hct 33.0 L Plt Count 147 L Neutrophils # Neutrophils # (Manual) 8.30 H Lymphocytes # Lymphocytes # (Manual) 0.99 L APTT ABG pH ABG pCO2 ABG HCO3 ABG O2 Saturation Sodium 127 L Chloride 97 L Carbon Dioxide 17 L BUN 80 H Creatinine 4.20 H Glucose 129 H POC Glucose (mg/dL) Plasma Lactic Acid Mahesh Calcium Magnesium AST ALT Alkaline Phosphatase Troponin I 3.070 H* C-Reactive Protein Total Protein Albumin Triglycerides HDL Cholesterol Procalcitonin Urine Glucose (UA) Urine Ketones Ur Random Sodium 12/13/23 12/13/23 12/13/23 05:48 06:40 11:44 WBC RBC Hgb Hct Plt Count Neutrophils # Neutrophils # (Manual) Lymphocytes # Lymphocytes # (Manual) APTT ABG pH ABG pCO2 34 L ABG HCO3 ABG O2 Saturation Sodium Chloride Carbon Dioxide BUN Creatinine Glucose POC Glucose (mg/dL) 144 H 222 H Plasma Lactic Acid Mahesh Calcium Magnesium AST ALT Alkaline Phosphatase Troponin I C-Reactive Protein Total Protein Albumin Triglycerides HDL Cholesterol Procalcitonin Urine Glucose (UA) Urine Ketones Ur Random Sodium 12/13/23 12/13/23 12/13/23 14:40 16:35 16:35 WBC RBC Hgb Hct Plt Count Neutrophils # Neutrophils # (Manual) Lymphocytes # Lymphocytes # (Manual) APTT ABG pH ABG pCO2 ABG HCO3 ABG O2 Saturation Sodium Chloride Carbon Dioxide BUN Creatinine Glucose POC Glucose (mg/dL) Plasma Lactic Acid Mahesh Calcium Magnesium AST ALT Alkaline Phosphatase Troponin I 2.530 H* C-Reactive Protein 32.7 H Total Protein Albumin Triglycerides HDL Cholesterol Procalcitonin 2.79 H Urine Glucose (UA) Urine Ketones Ur Random Sodium 12/13/23 12/14/23 12/14/23 19:38 00:01 03:29 WBC RBC 3.38 L Hgb 9.9 L Hct 29.5 L Plt Count Neutrophils # 8.6 H Neutrophils # (Manual) Lymphocytes # 0.7 L Lymphocytes # (Manual) APTT ABG pH ABG pCO2 ABG HCO3 ABG O2 Saturation Sodium Chloride Carbon Dioxide BUN Creatinine Glucose POC Glucose (mg/dL) 307 H 258 H Plasma Lactic Acid Mahesh Calcium Magnesium AST ALT Alkaline Phosphatase Troponin I C-Reactive Protein Total Protein Albumin Triglycerides HDL Cholesterol Procalcitonin Urine Glucose (UA) Urine Ketones Ur Random Sodium 12/14/23 12/14/23 12/14/23 03:29 06:23 11:50 WBC RBC Hgb Hct Plt Count Neutrophils # Neutrophils # (Manual) Lymphocytes # Lymphocytes # (Manual) APTT ABG pH ABG pCO2 ABG HCO3 ABG O2 Saturation Sodium 129 L Chloride 95 L Carbon Dioxide 19 L BUN 88 H Creatinine 5.81 H Glucose 242 H POC Glucose (mg/dL) 265 H 275 H Plasma Lactic Acid Mahesh Calcium 7.8 L Magnesium 2.4 H AST ALT Alkaline Phosphatase Troponin I C-Reactive Protein Total Protein Albumin Triglycerides HDL Cholesterol Procalcitonin Urine Glucose (UA) Urine Ketones Ur Random Sodium Assessment and Plan Assessment: This is an 83-year-old gentleman who presents because chest pain. During his hospital stay he was felt to have unstable angina/NSTEMI status post stenting of the left main and ramus. On 12/12/2019 4 at night she had 2 episodes of the cardiac arrest and in total it lasted for about 23 minutes. 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 Patient was asystole. His cardiac arrest is most likely related to his extensive coronary artery disease. Unstable angina/NSTEMI status post stenting of left main and ramus Acute kidney injury Acute hypoxic respiratory failure status post mechanical ventilation History of stroke History of diabetes mellitus Hyperlipidemia History of coronary artery disease status post LAD in September 2022 cup By acute thrombosis requiring angioplasty and thrombectomy. Plan: I ordered a routine EEG and a CT of the head Cardiology, nephrology are consulted. Will defer the rest of medical management to primary and other specialist. Patient overall condition is very guarded. From a neurological perspective the patient's opening his eyes and has brainstem reflexes from the limited examination with the IV propofol being held for 30 minutes. The plan was discussed with the primary attending as well as nurse Thank you for the consultation Time with Patient: Greater than 30
--- NOTE | 2023-12-14 16:31 | CT ---
EXAMINATION TYPE: CT brain wo con CT DLP: 1248.4 mGycm, Automated exposure control for dose reduction was used. DATE OF EXAM: 12/14/2023 4:19 PM COMPARISON: 10/08/2023.. CLINICAL INDICATION:Male, 83 years old with history of altered mental status, Altered mental status TECHNIQUE: Brain: Axial CT images of the brain were obtained with coronal and sagittal reformats created and rev iewed. Contrast used: None. Oral contrast used: None. FINDINGS: Brain: Extra-axial spaces: No abnormal extra-axial fluid collections. Ventricular system: Dilatation in proportion to cerebral atrophy. Cerebral parenchyma: Cerebral atrophy. No acute intraparenchymal hemorrhage or mass effect. The sandoval -white junction is well differentiated. Scattered hypoattenuating areas are seen within the white mat ter. Cerebellum: Unremarkable. Mass effect: No evidence of midline shift. Intracranial vasculature: Atherosclerotic calcifications of the intracranial vessels. Soft tissues: Normal. Calvarium/osseous structures: No depressed skull fracture. Paranasal sinuses and mastoid air cells: Mild scattered paranasal sinus disease. Visualized orbits: Orbital contents are intact. IMPRESSION: 1. No acute intracranial process. 2. Nonspecific white matter changes, likely secondary to chronic small vessel ischemic disease.
[2023-12-14 16:42] LABS: Hepatitis B Surface Antigen Nonreactive (Nonreactive)
[2023-12-14 16:46] LABS: Hepatitis B Surface AB- Quant 3.6 mIU/mL
[2023-12-14 18:08] LABS: Glucose,Whole Blood 208 mg/dL (70-110)
--- NOTE | 2023-12-14 18:19 | P.PN ---
Subjective Progress Note Date: 12/14/23 Principal diagnosis: Reason for follow-up is fever possible pneumonia Patient is a 83-year-old male past medical history significant for diabetes mellitus hypertension [place] CVA TIA presenting to the hospital with chest pain shortness of breath also noticed to be febrile prompting this consultation. Patient did have worsening of his respiratory status and also cardiac arrest with the patient has been intubated and transferred to the ICU On today's evaluation that is 12/14/2023,the patient did have improvement in his fever pattern last temperature 100.5 at 4 AM afebrile since then patient remains to be intubated on the vent FiO2 at 50% is requiring less pressor support and the patient was started on dialysis. Patient white count of 10.3, creatinine is 5.81 blood and sputum cultures currently pending Objective - Vital Signs Vital signs: Vital Signs Temp 99.0 F 12/14/23 12:00 Pulse 100 12/14/23 12:00 Resp 22 12/14/23 12:00 BP 107/56 12/14/23 12:00 Pulse Ox 96 12/14/23 12:00 FiO2 50 12/14/23 12:00 Intake & Output 12/13/23 12/14/23 12/14/23 18:59 06:59 18:59 Intake Total 300.589 625.916 301.823 Output Total 35 45 145 Balance 265.589 580.916 156.823 Weight 75.1 kg 75.1 kg Intake: IV 90 220 135 .9 NS 90 120 10 Piperacillin-Tazobactam 3 100 125 .375 gm In Sodium Chloride 0.9% 100 ml @ 25 mls/hr IVPB Q12HR [facility] Rx #:[id number] Intake, IV Titration 210.589 405.916 166.823 Amount Norepinephrine 32 mg In 10.589 121.861 60.733 Sodium Chloride 0.9% 218 ml @ 0.03 MCG/KG/MIN 1. 223 mls/hr IV .Q24H [facility] Rx#:[id number] propofoL 1,000 mg In 200 284.055 106.090 Empty Bag 1 bag @ 15 MCG/ KG/MIN 7.83 mls/hr IV . [id number] [facility] Rx#:[id number] Output: Urine 35 45 145 Other: Voiding Method Indwelling Catheter Indwelling Catheter Indwelling Catheter ABP, PAP, CO, CI - Last Documented Arterial Blood Pressure 116/49 - Exam GENERAL DESCRIPTION: An elderly male intubated on the vent RESPIRATORY SYSTEM: Unlabored breathing , decreased breath sounds at bases HEART: S1 S2 regular rate and rhythm , ABDOMEN: Soft , no tenderness EXTREMITIES: No edema feet - Labs CBC & Chem 7: 12/14/23 03:29 12/14/23 03:29 Labs: Abnormal Lab Results - Last 24 Hours (Table) 12/13/23 12/13/23 12/13/23 Range/Units 14:40 16:35 16:35 RBC (4.30-5.90) m/uL Hgb (13.0-17.5) gm/dL Hct (39.0-53.0) % Neutrophils # (1.3-7.7) k/uL Lymphocytes # (1.0-4.8) k/uL Sodium (137-145) mmol/L Chloride (98-107) mmol/L Carbon Dioxide (22-30) mmol/L BUN (9-20) mg/dL Creatinine (0.66-1.25) mg/dL Glucose (74-99) mg/dL POC Glucose (mg/dL) (70-110) mg/dL Calcium (8.4-10.2) mg/dL Magnesium (1.6-2.3) mg/dL Troponin I 2.530 H* (0.000-0.034) ng/mL C-Reactive Protein 32.7 H (<1.0) mg/dL Procalcitonin 2.79 H (0.02-0.09) ng/mL 12/13/23 12/14/23 12/14/23 Range/Units 19:38 00:01 03:29 RBC 3.38 L (4.30-5.90) m/uL Hgb 9.9 L (13.0-17.5) gm/dL Hct 29.5 L (39.0-53.0) % Neutrophils # 8.6 H (1.3-7.7) k/uL Lymphocytes # 0.7 L (1.0-4.8) k/uL Sodium (137-145) mmol/L Chloride (98-107) mmol/L Carbon Dioxide (22-30) mmol/L BUN (9-20) mg/dL Creatinine (0.66-1.25) mg/dL Glucose (74-99) mg/dL POC Glucose (mg/dL) 307 H 258 H (70-110) mg/dL Calcium (8.4-10.2) mg/dL Magnesium (1.6-2.3) mg/dL Troponin I (0.000-0.034) ng/mL C-Reactive Protein (<1.0) mg/dL Procalcitonin (0.02-0.09) ng/mL 12/14/23 12/14/23 12/14/23 Range/Units 03:29 06:23 11:50 RBC (4.30-5.90) m/uL Hgb (13.0-17.5) gm/dL Hct (39.0-53.0) % Neutrophils # (1.3-7.7) k/uL Lymphocytes # (1.0-4.8) k/uL Sodium 129 L (137-145) mmol/L Chloride 95 L (98-107) mmol/L Carbon Dioxide 19 L (22-30) mmol/L BUN 88 H (9-20) mg/dL Creatinine 5.81 H (0.66-1.25) mg/dL Glucose 242 H (74-99) mg/dL POC Glucose (mg/dL) 265 H 275 H (70-110) mg/dL Calcium 7.8 L (8.4-10.2) mg/dL Magnesium 2.4 H (1.6-2.3) mg/dL Troponin I (0.000-0.034) ng/mL C-Reactive Protein (<1.0) mg/dL Procalcitonin (0.02-0.09) ng/mL Microbiology - Last 24 Hours (Table) 12/12/23 22:00 Gram Stain - Preliminary Sputum Assessment and Plan (1) Fever and chills Current Visit: Yes Status: Acute Code(s): R50.9 - FEVER, UNSPECIFIED SNOMED Code(s): 274556424 (2) Sepsis Current Visit: Yes Status: Acute Code(s): A41.9 - SEPSIS, UNSPECIFIED ORGANISM SNOMED Code(s): 77210273 (3) Aspiration pneumonia Current Visit: Yes Status: Acute Code(s): J69.0 - PNEUMONITIS DUE TO INHALATION OF FOOD AND VOMIT SNOMED Code(s): 828198307 Plan: 1patient presented hospital with chest pain noticed to have a fever on admission and another fever this morning did have predominantly respiratory symptoms with a question of possible pneumonia versus intra-abdominal pathology, but we did have a negative UA no evidence of any cellulitis or joint swelling 2-patient did have significant change in his clinical condition did have a cardiac arrest and admission to the ICU and for possible aspiration, blood and sputum culture currently pending 3-patient to continue with the Zosyn and will monitor his clinical course closely Dictation was produced using [email or web address] dictation software. please excuse any grammatical, word or spelling errors. Time with Patient: Less than 30
[2023-12-14] MEDS ORDERED: AMIODARONE 360 MG in DEXTROSE 5% IN WATER 200 ML IV ONE (19:32)
[2023-12-14] MEDS ORDERED: AMIODARONE 450 MG in DEXTROSE 5% IN WATER 250 ML IV SCH (19:45)
[2023-12-14] MEDS: DEXTROSE 5% IN WATER 250 ML with AMIODARONE 300 MG IV ONE (20:05)
[2023-12-14 20:30] LABS: African American GFR (CKD) 13 (>60 ml/min/1.73 sqM); Anion Gap 11 mmol/L; Blood Urea Nitrogen 76 mg/dL (9-20); Calcium 7.6 mg/dL (8.4-10.2); Carbon Dioxide 22 mmol/L (22-30); Chloride 97 mmol/L (98-107); Glucose 189 mg/dL (74-99); Magnesium 2.3 mg/dL (1.6-2.3); Non-African American GFR(CKD) 11 (>60 ml/min/1.73 sqM); Potassium 3.9 mmol/L (3.5-5.1); Sodium 130 mmol/L (137-145)
[2023-12-14] MEDS: AMIODARONE 360 MG in DEXTROSE 5% IN WATER 200 ML IV ONE (22:10)
--- NOTE | 2023-12-14 22:28 | EEG ---
ELECTROENCEPHALOGRAM REPORT CLINICAL HISTORY: This is an 83-year-old gentleman with cardiac arrest with altered mental status. The video EEG is obtained to evaluate for seizure epileptiform activity. RELEVANT MEDICATION: IV propofol which has been held for about 30 minutes prior to recording. EEG TYPE: This a routine 21-channel EEG with video using the 10/20 electrode placement system. DESCRIPTION: The patient is intubated on a ventilator. The background consists of [id number] voltage of 3 to 4 hertz polymorphic, nonrhythmic delta activity at times intermixed with theta activity. There is no physiological stage 2 sleep architecture. There is no focal slowing. Interictal and ictal is none. ACTIVATION PROCEDURE: Limited and was aborted at 8 hertz, but no abnormality is noted during the photic stimulation. No photic driving. Hyperventilation is not performed. CLINICAL INTERPRETATION: This is an abnormal routine EEG. The background slowing is suggestive of severe encephalopathy. There is no focal slowing, epileptiform discharge, or seizure on the EEG. Clinical correlation is recommended. MMCANDIDO / REMIGION: [id number] / [place]
[2023-12-14 23:33] LABS: Glucose,Whole Blood 218 mg/dL (70-110)
[2023-12-15] MEDS: AMIODARONE 450 MG in DEXTROSE 5% IN WATER 250 ML IV SCH (03:50)
[2023-12-15 04:57] LABS: Basophils # (A) 0.1 k/uL (0-0.2); Basophils % (A) 1 %; Eosinophils # (A) 0.3 k/uL (0-0.7); Eosinophils % (A) 2 %; HCT 29.7 % (39.0-53.0); HGB 9.8 gm/dL (13.0-17.5); Lymphocytes % (A) 8 %; MCH 28.6 pg (25.0-35.0); MCV 86.7 fL (80.0-100.0); Mean Platelet Volume 8.9; Monocytes # (A) 0.8 k/uL (0-1.0); Monocytes % (A) 6 %; Neutrophils # (A) 11.2 k/uL (1.3-7.7); Neutrophils % (A) 82 %; Platelet Count 248 k/uL (150-450); RBC 3.43 m/uL (4.30-5.90); RDW 15.6 % (11.5-15.5); WBC 13.7 k/uL (3.8-10.6)
[2023-12-15 05:20] LABS: African American GFR (CKD) 13 (>60 ml/min/1.73 sqM); Anion Gap 14 mmol/L; Blood Urea Nitrogen 77 mg/dL (9-20); Calcium 7.6 mg/dL (8.4-10.2); Carbon Dioxide 21 mmol/L (22-30); Chloride 95 mmol/L (98-107); Glucose 264 mg/dL (74-99); Magnesium 2.4 mg/dL (1.6-2.3); Non-African American GFR(CKD) 11 (>60 ml/min/1.73 sqM); Phosphorus 5.5 mg/dL (2.5-4.5); Potassium 4.1 mmol/L (3.5-5.1); Sodium 130 mmol/L (137-145)
[2023-12-15 05:45] LABS: ABG Base Excess 0.3 mmol/L; ABG HCO3 24 mmol/L (21-25); ABG Oxygen Saturation 95.9 % (94-97); ABG PCO2 35 mmHg (35-45); ABG PH 7.45 (7.35-7.45); ABG PO2 77 mmHg (83-108); ABG TCO2 25 mmol/L (19-24); Allen Test Performed? Yes
[2023-12-15 06:20] LABS: Glucose,Whole Blood 326 mg/dL (70-110)
[2023-12-15] MEDS: INSULIN DETEMIR (LEVEMIR) 100 UNIT/ML SYR SQ SCH (06:39)
--- NOTE | 2023-12-15 08:27 | XR ---
EXAMINATION TYPE: XR chest 1V portable DATE OF EXAM: 12/15/2023 COMPARISON: 12/14/2023 HISTORY: Shortness of breath TECHNIQUE: Single frontal view of the chest is obtained. FINDINGS: ET and NG tube stable. Diffuse bilateral airspace disease with pleural effusions. No pneum othorax. Heart is enlarged. Widening of the right AC joint are likely chronic correlate clinically. D egenerative change of the spine. Contrast within the left upper quadrant. IMPRESSION: 1. Diffuse pleural-parenchymal changes or early pulmonary edema, ARDS or diffuse pneumonia.
--- NOTE | 2023-12-15 10:27 | P.PN ---
Subjective Patient is seen in follow-up for acute kidney injury on chronic kidney disease. Started on hemodialysis December 14, 2023. Tolerating dialysis well. Intubated. On Levophed. Urine output improved and now averaging about 50 cc an hour. Vital signs are stable. On vasopressor support. General: Resting in bed. HEENT: Intubated. LUNGS: Scattered rhonchi. HEART: Rate and Rhythm are regular. ABDOMEN: No distention. EXTREMITITES: Trace edema. Objective - Vital Signs Vital signs: Vital Signs Temp 98.4 F 12/15/23 08:00 Pulse 80 12/15/23 09:15 Resp 21 12/15/23 09:15 BP 126/53 12/14/23 20:00 Pulse Ox 95 12/15/23 09:15 FiO2 35 12/15/23 08:19 Intake & Output 12/14/23 12/15/23 12/15/23 18:59 06:59 18:59 Intake Total 096.815 5122.260 41.237 Output Total 305 2005 220 Balance 147.329 -892.740 -178.763 Weight 75.1 kg 86.4 kg Intake: IV 195 220 20 .9 NS 70 120 20 Piperacillin-Tazobactam 3 125 100 .375 gm In Sodium Chloride 0.9% 100 ml @ 25 mls/hr IVPB Q12HR [facility] Rx #:[id number] Intake, IV Titration 237.329 232.260 1.237 Amount Norepinephrine 32 mg In 124.671 77.443 1.237 Sodium Chloride 0.9% 218 ml @ 0.03 MCG/KG/MIN 1. 223 mls/hr IV .Q24H [facility] Rx#:[id number] propofoL 1,000 mg In 112.658 154.817 Empty Bag 1 bag @ 15 MCG/ KG/MIN 7.83 mls/hr IV . [id number] [facility] Rx#:[id number] Tube Feeding 20 170 20 Hemodialysis 400 Other 90 Output: Urine 305 605 220 Hemodialysis 1400 Other: Voiding Method Indwelling Catheter Indwelling Catheter ABP, PAP, CO, CI - Last Documented Arterial Blood Pressure 122/50 - Labs CBC & Chem 7: 12/15/23 04:27 12/15/23 04:27 Labs: Abnormal Lab Results - Last 24 Hours (Table) 12/14/23 12/14/23 12/14/23 Range/Units 11:50 18:06 20:12 WBC (3.8-10.6) k/uL RBC (4.30-5.90) m/uL Hgb (13.0-17.5) gm/dL Hct (39.0-53.0) % RDW (11.5-15.5) % Neutrophils # (1.3-7.7) k/uL ABG pO2 (83-108) mmHg ABG Total CO2 (19-24) mmol/L Sodium 130 L (137-145) mmol/L Chloride 97 L (98-107) mmol/L Carbon Dioxide (22-30) mmol/L BUN 76 H (9-20) mg/dL Creatinine 4.55 H (0.66-1.25) mg/dL Glucose 189 H (74-99) mg/dL POC Glucose (mg/dL) 275 H 208 H (70-110) mg/dL Calcium 7.6 L (8.4-10.2) mg/dL Phosphorus (2.5-4.5) mg/dL Magnesium (1.6-2.3) mg/dL 12/14/23 12/15/23 12/15/23 Range/Units 23:32 04:27 04:27 WBC 13.7 H (3.8-10.6) k/uL RBC 3.43 L (4.30-5.90) m/uL Hgb 9.8 L (13.0-17.5) gm/dL Hct 29.7 L (39.0-53.0) % RDW 15.6 H (11.5-15.5) % Neutrophils # 11.2 H (1.3-7.7) k/uL ABG pO2 (83-108) mmHg ABG Total CO2 (19-24) mmol/L Sodium 130 L (137-145) mmol/L Chloride 95 L (98-107) mmol/L Carbon Dioxide 21 L (22-30) mmol/L BUN 77 H (9-20) mg/dL Creatinine 4.50 H (0.66-1.25) mg/dL Glucose 264 H (74-99) mg/dL POC Glucose (mg/dL) 218 H (70-110) mg/dL Calcium 7.6 L (8.4-10.2) mg/dL Phosphorus 5.5 H (2.5-4.5) mg/dL Magnesium 2.4 H (1.6-2.3) mg/dL 12/15/23 12/15/23 Range/Units 05:42 06:19 WBC (3.8-10.6) k/uL RBC (4.30-5.90) m/uL Hgb (13.0-17.5) gm/dL Hct (39.0-53.0) % RDW (11.5-15.5) % Neutrophils # (1.3-7.7) k/uL ABG pO2 77 L (83-108) mmHg ABG Total CO2 25 H (19-24) mmol/L Sodium (137-145) mmol/L Chloride (98-107) mmol/L Carbon Dioxide (22-30) mmol/L BUN (9-20) mg/dL Creatinine (0.66-1.25) mg/dL Glucose (74-99) mg/dL POC Glucose (mg/dL) 326 H (70-110) mg/dL Calcium (8.4-10.2) mg/dL Phosphorus (2.5-4.5) mg/dL Magnesium (1.6-2.3) mg/dL Microbiology - Last 24 Hours (Table) 12/12/23 22:00 Gram Stain - Final Sputum Sputum Culture - Final 12/13/23 16:35 Blood Culture - Preliminary Blood Assessment and Plan Plan: Assessment: 1. Acute kidney injury secondary to hemodynamic ATN, cardiorenal syndrome and cardiac arrest. Also component of contrast-induced acute kidney injury. Creatinine up to 5.8 dated December 14, 2023. Was oliguric, now nonoliguric. UA benign. No hydronephrosis noted on CAT scan. 2. 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 3. Coronary artery disease status postcardiac catheterization with stent placement on December 10, 2023. Not a candidate for CABG. 4. Metabolic acidosis secondary to acute kidney injury. Better. On oral bicarb. 5. Hyponatremia. Component of poor solute intake. Hypervolemic. 6. Diabetes mellitus. 7. Possible pneumonia on antibiotics. ID following. 8. Volume overload. Improved with ultrafiltration and better urine output. 9. Status postcardiac arrest - V-fib and PEA. On amiodarone drip. Plan: Currently seen while undergoing hemodialysis. Wean FiO2 and vasopressors. Phosphorus level 5.5 dated December 15, 2023. Urine output improved. Monitor for renal recovery. Prognosis guarded. Continue to assess daily for need for renal replacement therapy.
[2023-12-15 12:34] LABS: Glucose,Whole Blood 204 mg/dL (70-110)
--- NOTE | 2023-12-15 13:04 | P.PN ---
Subjective Progress Note Date: 12/15/23 Principal diagnosis: Cardiac arrest x 2 83-year-old male patient who sustained a cardiac yesterday at 2033 and following that the patient was moved to the intensive care unit. The patient was found in asystole. He received CPR based on ACLS protocol. Initial downtime was around 25 to 30 minutes and the patient received 4 rounds of epinephrine and CPR. During the process the patient was also found to be in V-fib and was defibrillated. He was brought into the intensive care unit where he had another code at 2106 and the second code was brief. He was placed on pressors. He is already intubated on mechanical ventilator.. This morning, the patient is on propofol which is running at 50 mcg/kg/min. He is hypotensive and is on norepinephrine 0.18 micrograms per kilogram per minute. He was a difficult IV access. Unable to insert an arterial line. The triple-lumen catheter was inserted in the right femoral vein for hemodynamic support and pressors. At this point in time, he is on assist-control mode at a rate of 20, tidal volume of 400, FiO2 of 70% with a PEEP of 5. The chest x-ray is showing adequate positioning of the ET tube. Orotracheal tube was initially in the right mainstem that was pulled out. No change in the bilateral opacities seen. The patient also has a moderate-sized right-sided pleural effusion along with pulm vascular congestion. Blood work from today shows a WBC count 9.9 with a hemoglobin 10.9 and a platelet count of 147. pH is 7.43 with a pCO2 of 34 and a pO2 of 84. Sodium levels at 127 and potassium levels at 4.3 with a serum bicarb of 17 and the BUN is at 80 with a creatinine of 4.2 as the patient has an acute on top of chronic kidney injury. This could have been also related to contrast as the patient's creatinine was gradually going up following his cardiac procedures. Troponin currently is at 3.07 and it is uptrending again post cardiac arrest. Cardiology was informed of those changes. No plans for any further intervention. In terms of his cardiac history, the patient is followed by Dr. Nelson who presents with symptoms of chest discomfort. He has a known history of CAD underwent stenting of the LAD in September [address] Remy and subsequently was readmitted about a week after with acute thrombosis and underwent angioplasty and thrombectomy. He underwent repeat cardiac catheterization in August and was found to have totally occluded LAD with distal left main disease but was felt to be a poor candidate for any surgical intervention. He presents with symptoms of chest discomfort and dyspnea at rest yesterday He usually has exertional angina pectoris with dyspnea on exertion. His activity is limited. He has evidence of cardiomyopathy with segmental wall motion abnormality consistent with his initial presentation with myocardial infarction.Patient is status attempted catheterization with Dr. Nelson on 12/09/2023. Dr. Nelson had difficulty obtaining access and his cardiac catheteriz ation was canceled. He underwent repeat cardiac catheterization with Dr. Remy with PCI of left main and ramus. Patient was hypotensive during the procedure. Patient was reevaluated today on 12/14/2023, patient remains in the ICU, intubated and mechanically ventilated. Patient was initially admitted on 12/05 with unstable angina, chest pain, severe coronary artery disease, and he was never felt to be a candidate for any surgical intervention. He had chronically occluded ostial LAD and ischemic cardiomyopathy. In addition he had chronic kidney disease and diabetes. As noted above the patient had cardiac arrest x 2 remains intubated and mechanically ventilated, he is on assist-control rate of 20 tidal volume 400 FiO2 50% PEEP of 5 ABG showed a pO2 of 88 pCO2 35 pH of 7.41. Patient may have developed anoxic brain injury, hence neurology will be consulted. Patient required a right brachial arterial line placement today, and this was done uneventfully. Patient will be started today on tube feeding. Looking back at the patient's history, patient clearly has a significant cardiac history, on 12/11, patient had V-fib cardiac arrest x 2 and he had CPR at 1 time it was 20 minutes the second time was 8 minutes of CPR. Obviously we are quite concerned about the possibility of anoxic brain injury. Chest x-ray is showing evidence of pulmonary edema, underlying pneumonia is not entirely ruled out but felt to be less likely patient is requiring norepinephrine at 0.16 mcg/kg/min also requiring propofol at 40 mcg/kg/min, FiO2 was decreased down to 45% today. Renal functioning is continuing to worse, patient is not making much urine, and spite of giving him Lasix and Bumex renal replacement therapy will be initiated today. Dialysis catheter was placed this morning. WBC count today is 10.3 hemoglobin is 9.9 basic metabolic profile is normal except for sodium of 129, BUN is up to 88 creatinine 5.81 blood sugar is 272 Patient was reevaluated today on 12/15/2023, remains in the ICU, intubated and mechanically ventilated he is on assist-control rate of 20 tidal volume 400 FiO2 35% and PEEP of 5 ABG showed a pO2 of 77 pCO2 35 pH of 7.45, patient is undergoing hemodialysis this morning. Remains on amiodarone drip, propofol at 25 mcg/kg/min is also on norepinephrine drip at 0.14 mcg/kg/min remains empirically on Zosyn. Chest x-ray is consistent with diffuse pleuroparenchymal changes/pulmonary edema picture, possible ARDS but I believe that pulmonary edema is really cardiogenic in nature. Sibling has history of ischemic cardiomyopathy. CBC showed WBC of 13.7 hemoglobin 9.8. Basic metabolic profile is normal sodium is 130, BUN is 77 creatinine 4.50, again the patient will have hemodialysis today neurologically, the patient is not responding to any stimuli, being followed by neurology, and I honestly believe the patient has most likely severe anoxic brain injury. Off sedation yesterday, patient was opening his eyes only but no other responses noted Objective - Vital Signs Vital signs: Vital Signs Temp 98.4 F 12/15/23 08:00 Pulse 76 12/15/23 11:45 Resp 22 12/15/23 10:30 BP 112/58 12/15/23 10:30 Pulse Ox 95 12/15/23 10:30 FiO2 35 12/15/23 11:04 Intake & Output 12/14/23 12/15/23 12/15/23 18:59 06:59 18:59 Intake Total 361.503 9810.260 54.050 Output Total 305 2005 220 Balance 147.329 -892.740 -165.950 Weight 75.1 kg 86.4 kg Intake: IV 195 220 20 .9 NS 70 120 20 Piperacillin-Tazobactam 3 125 100 .375 gm In Sodium Chloride 0.9% 100 ml @ 25 mls/hr IVPB Q12HR [facility] Rx #:[id number] Intake, IV Titration 237.329 232.260 14.050 Amount Norepinephrine 32 mg In 124.671 77.443 14.050 Sodium Chloride 0.9% 218 ml @ 0.03 MCG/KG/MIN 1. 223 mls/hr IV .Q24H [facility] Rx#:[id number] propofoL 1,000 mg In 112.658 154.817 Empty Bag 1 bag @ 15 MCG/ KG/MIN 7.83 mls/hr IV . [id number] [facility] Rx#:[id number] Tube Feeding 20 170 20 Hemodialysis 400 Other 90 Output: Urine 305 605 220 Hemodialysis 1400 Other: Voiding Method Indwelling Catheter Indwelling Catheter Indwelling Catheter ABP, PAP, CO, CI - Last Documented Arterial Blood Pressure 110/47 - Exam General: Revealed 83-year-old white male intubated mechanically ventilated, unresponsive to any stimuli. Head: Atraumatic, normocephalic Skin: Skin is warm and dry and no rashes or lesions are noted. Eye: Pupils are equal, round and reactive to light, extra-ocular movements are intact; there is normal conjunctiva bilaterally. Ears, nose, mouth and throat: There are moist mucous membranes and no oral lesions. Neck: The neck is supple, there is no tenderness or JVD. Endotracheal tube and orogastric tube are intact. Cardiovascular: Distant S1-S2, no S3 gallop. Respiratory: Fine crackles at the bases noted bilaterally. Gastrointestinal: Soft, non-distended, non-tender abdomen without masses or organomegaly noted. There is no rebound or guarding present. Bowel sounds are unremarkable. Back: There is no tenderness to palpation in the midline. There is no obvious deformity. Musculoskeletal: Normal ROM, no tenderness, 2+ bipedal edema noted.. There is no calf tenderness Neurological: Patient is unresponsive to any stimuli Psychiatric: Not assessed patient is sedated. - Labs CBC & Chem 7: 12/15/23 04:27 12/15/23 04:27 Labs: Abnormal Lab Results - Last 24 Hours (Table) 12/14/23 12/14/23 12/14/23 Range/Units 18:06 20:12 23:32 WBC (3.8-10.6) k/uL RBC (4.30-5.90) m/uL Hgb (13.0-17.5) gm/dL Hct (39.0-53.0) % RDW (11.5-15.5) % Neutrophils # (1.3-7.7) k/uL ABG pO2 (83-108) mmHg ABG Total CO2 (19-24) mmol/L Sodium 130 L (137-145) mmol/L Chloride 97 L (98-107) mmol/L Carbon Dioxide (22-30) mmol/L BUN 76 H (9-20) mg/dL Creatinine 4.55 H (0.66-1.25) mg/dL Glucose 189 H (74-99) mg/dL POC Glucose (mg/dL) 208 H 218 H (70-110) mg/dL Calcium 7.6 L (8.4-10.2) mg/dL Phosphorus (2.5-4.5) mg/dL Magnesium (1.6-2.3) mg/dL 12/15/23 12/15/23 12/15/23 Range/Units 04:27 04:27 05:42 WBC 13.7 H (3.8-10.6) k/uL RBC 3.43 L (4.30-5.90) m/uL Hgb 9.8 L (13.0-17.5) gm/dL Hct 29.7 L (39.0-53.0) % RDW 15.6 H (11.5-15.5) % Neutrophils # 11.2 H (1.3-7.7) k/uL ABG pO2 77 L (83-108) mmHg ABG Total CO2 25 H (19-24) mmol/L Sodium 130 L (137-145) mmol/L Chloride 95 L (98-107) mmol/L Carbon Dioxide 21 L (22-30) mmol/L BUN 77 H (9-20) mg/dL Creatinine 4.50 H (0.66-1.25) mg/dL Glucose 264 H (74-99) mg/dL POC Glucose (mg/dL) (70-110) mg/dL Calcium 7.6 L (8.4-10.2) mg/dL Phosphorus 5.5 H (2.5-4.5) mg/dL Magnesium 2.4 H (1.6-2.3) mg/dL 12/15/23 12/15/23 Range/Units 06:19 12:33 WBC (3.8-10.6) k/uL RBC (4.30-5.90) m/uL Hgb (13.0-17.5) gm/dL Hct (39.0-53.0) % RDW (11.5-15.5) % Neutrophils # (1.3-7.7) k/uL ABG pO2 (83-108) mmHg ABG Total CO2 (19-24) mmol/L Sodium (137-145) mmol/L Chloride (98-107) mmol/L Carbon Dioxide (22-30) mmol/L BUN (9-20) mg/dL Creatinine (0.66-1.25) mg/dL Glucose (74-99) mg/dL POC Glucose (mg/dL) 326 H 204 H (70-110) mg/dL Calcium (8.4-10.2) mg/dL Phosphorus (2.5-4.5) mg/dL Magnesium (1.6-2.3) mg/dL Microbiology - Last 24 Hours (Table) 12/12/23 22:00 Gram Stain - Final Sputum Sputum Culture - Final 12/13/23 16:35 Blood Culture - Preliminary Blood Assessment and Plan Assessment: Impression: Cardiac arrest x 2 Severe coronary artery disease and acute non-ST elevation myocardial infarction Acute hypoxic respiratory failure secondary to above Cardiogenic shock Acute systolic congestive heart failure 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 brain injury due to the downtime Severe ischemic cardiomyopathy and LV dysfunction with ejection fraction of 35 to 40% History of CVA History of medical debility and multiple comorbidities Type 2 diabetes Dyslipidemia Acute kidney injury , on hemodialysis History of underlying coronary artery disease with previous stent of LAD September 22, 2001 3, complicated by acute thrombosis requiring angioplasty and thrombectomy repeat cardiac catheterization 09/12 showed totally occluded LAD with distal left main disease felt to be poor candidate for surgical intervention Commendation: Continue ventilatory support, considering his neurological status, patient is not ready for any form of weaning Continue hemodynamic support patient is on propofol 25 mcg/kg/min and on norepinephrine at 0.14 mcg/kg/min. Continue aspirin and Plavix Nutritional support/enteral feeding Daily assessment of mental status off sedation Noted the results of the EEG and the results of the CT of the brain Continue hemodialysis Continue GI and DVT prophylaxis Continue bronchodilators and updrafts Continue statins Condition is critical Critical care time is over 30 minutes Time with Patient: Greater than 30
--- NOTE | 2023-12-15 14:57 | P.PN ---
Subjective Progress Note Date: 12/15/23 I am following up with the patient and per the nurse she's about the same. Patient is on IV propofol. Objective - Vital Signs Vital signs: Vital Signs Temp 98.1 F 12/15/23 12:00 Pulse 78 12/15/23 14:37 Resp 22 12/15/23 14:37 BP 124/48 12/15/23 14:37 Pulse Ox 96 12/15/23 14:00 FiO2 35 12/15/23 12:00 Intake & Output 12/14/23 12/15/23 12/15/23 18:59 06:59 18:59 Intake Total 976.849 1048.260 671.033 Output Total 305 2005 1210 Balance 147.329 -892.740 -538.967 Weight 75.1 kg 86.4 kg Intake: IV 195 220 130 .9 NS 70 120 120 Piperacillin-Tazobactam 3 125 100 10 .375 gm In Sodium Chloride 0.9% 100 ml @ 25 mls/hr IVPB Q12HR [facility] Rx #:[id number] Intake, IV Titration 237.329 232.260 121.033 Amount Norepinephrine 32 mg In 124.671 77.443 34.032 Sodium Chloride 0.9% 218 ml @ 0.03 MCG/KG/MIN 1. 223 mls/hr IV .Q24H [facility] Rx#:[id number] propofoL 1,000 mg In 112.658 154.817 87.001 Empty Bag 1 bag @ 15 MCG/ KG/MIN 7.83 mls/hr IV . [id number] [facility] Rx#:[id number] Tube Feeding 20 170 20 Hemodialysis 400 400 Other 90 Output: Urine 305 605 310 Hemodialysis 1400 900 Other: Voiding Method Indwelling Catheter Indwelling Catheter Indwelling Catheter ABP, PAP, CO, CI - Last Documented Arterial Blood Pressure 128/51 - Exam GENERAL: The patient is lying in bed and does not appear in acute distress. LUNG: Intubated on ventilator. NEUROLOGICAL: Limited. Is on IV Propofol 25mcg/kg/min Is comatose. GCS 3 ( E1, VT1, M1) Patient opens his eyes to verbal stimuli. Primary gaze is midline. Pupils are round about 5 mm and reactive to light bilaterally. No facial weakness. Patient does not follow any commands or attempt to verbalize the. Has intact gag and cough. His breathing over the vent Motor is no spontaneous movement noted. He grimaces face to painful stimuli bilaterally over upper extremity Reflexes is 1 positive throughout. Plantars are mute bilaterally. Some of the workup during his hospital visit consisted of. Sodium is 129-->130 Creatinine is 5.81 Most recent AST is 121 which is trending up and ALTs 80s also trended up from initial presentation. CT the head is reported as no acute intracranial process. Routine EEG is abnormal. The background slowing is suggestive of severe ence phalopathy. There is no focal slowing, epileptiform discharges or seizure on the EEG. - Labs CBC & Chem 7: 12/15/23 04:27 12/15/23 04:27 Labs: Abnormal Lab Results - Last 24 Hours (Table) 12/14/23 12/14/23 12/14/23 Range/Units 18:06 20:12 23:32 WBC (3.8-10.6) k/uL RBC (4.30-5.90) m/uL Hgb (13.0-17.5) gm/dL Hct (39.0-53.0) % RDW (11.5-15.5) % Neutrophils # (1.3-7.7) k/uL ABG pO2 (83-108) mmHg ABG Total CO2 (19-24) mmol/L Sodium 130 L (137-145) mmol/L Chloride 97 L (98-107) mmol/L Carbon Dioxide (22-30) mmol/L BUN 76 H (9-20) mg/dL Creatinine 4.55 H (0.66-1.25) mg/dL Glucose 189 H (74-99) mg/dL POC Glucose (mg/dL) 208 H 218 H (70-110) mg/dL Calcium 7.6 L (8.4-10.2) mg/dL Phosphorus (2.5-4.5) mg/dL Magnesium (1.6-2.3) mg/dL 12/15/23 12/15/23 12/15/23 Range/Units 04:27 04:27 05:42 WBC 13.7 H (3.8-10.6) k/uL RBC 3.43 L (4.30-5.90) m/uL Hgb 9.8 L (13.0-17.5) gm/dL Hct 29.7 L (39.0-53.0) % RDW 15.6 H (11.5-15.5) % Neutrophils # 11.2 H (1.3-7.7) k/uL ABG pO2 77 L (83-108) mmHg ABG Total CO2 25 H (19-24) mmol/L Sodium 130 L (137-145) mmol/L Chloride 95 L (98-107) mmol/L Carbon Dioxide 21 L (22-30) mmol/L BUN 77 H (9-20) mg/dL Creatinine 4.50 H (0.66-1.25) mg/dL Glucose 264 H (74-99) mg/dL POC Glucose (mg/dL) (70-110) mg/dL Calcium 7.6 L (8.4-10.2) mg/dL Phosphorus 5.5 H (2.5-4.5) mg/dL Magnesium 2.4 H (1.6-2.3) mg/dL 12/15/23 12/15/23 Range/Units 06:19 12:33 WBC (3.8-10.6) k/uL RBC (4.30-5.90) m/uL Hgb (13.0-17.5) gm/dL Hct (39.0-53.0) % RDW (11.5-15.5) % Neutrophils # (1.3-7.7) k/uL ABG pO2 (83-108) mmHg ABG Total CO2 (19-24) mmol/L Sodium (137-145) mmol/L Chloride (98-107) mmol/L Carbon Dioxide (22-30) mmol/L BUN (9-20) mg/dL Creatinine (0.66-1.25) mg/dL Glucose (74-99) mg/dL POC Glucose (mg/dL) 326 H 204 H (70-110) mg/dL Calcium (8.4-10.2) mg/dL Phosphorus (2.5-4.5) mg/dL Magnesium (1.6-2.3) mg/dL Microbiology - Last 24 Hours (Table) 12/12/23 22:00 Gram Stain - Final Sputum Sputum Culture - Final 12/13/23 16:35 Blood Culture - Preliminary Blood Assessment and Plan Assessment: This is an 83-year-old gentleman who presents because chest pain. During his hospital stay he was felt to have unstable angina/NSTEMI status post stenting of the left main and ramus. On 12/12/2019 4 at night she had 2 episodes of the cardiac arrest and in total it lasted for about 23 minutes. 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 Patient was asystole. His cardiac arrest is most likely related to his extensive coronary artery disease. Unstable angina/NSTEMI status post stenting of left main and ramus Acute kidney injury Acute hypoxic respiratory failure status post mechanical ventilation Transaminitis History of stroke History of diabetes mellitus Hyperlipidemia History of coronary artery disease status post LAD in September 2022 cup By acute thrombosis requiring angioplasty and thrombectomy. Plan: Cardiology, nephrology are consulted. Will defer the rest of medical management to primary and other specialist. Patient overall condition is very guarded. The plan was discussed with the his nurse. Time with Patient: Less than 30
--- NOTE | 2023-12-15 14:59 | P.PN ---
Subjective Progress Note Date: 12/15/23 83-year-old male with PMH of CAD, history of CVA, diabetes mellitus, chronic kidney disease, hypertension, BPH, hypothyroidism presents the ED for chest pain. Chest pain woke him up at 3AM. Chest pain mid sternal, described as rumbling, radiating to both arms. Associated symptoms include diaphoresis. Chest pain was relieved by sublingual nitroglycerin. Of note, also reports fevers as high as 101.3F over the past 3 days. No cough, rash, urinary or bowel symptoms. In the ED, he underwent extensive evaluation. BP 98/61, HR 84, RR 20, T 102.6F, 100% on 1 LNC. CBC, coag panel and CMP was done significant for lymphocyte count of 0.5, sodium 1:30, bicarb 18, BUN 34, creatinine 1.8, glucose 184, calcium 8.2, alk phos 167. Magnesium 2.2. Troponin 0.028. Flu, RSV, COVID-19 negative. EKG showed sinus rhythm with left bundle branch block. Chest x-ray showed small right pleural effusion and pulmonary vascular congestion. Patient is admitted for chest pain, rule out acute coronary syndrome and cardiology consultation. Workup from previous admission was reviewed. Cardiac cath 09/04/23 showed 70-80% distal left main, 100% ostial LAD with collateral, 80-90% ostial PDA, 80% proximal OM1. He has been evaluated by CT surgery in the past deemed to be poor surgical candidate for revascularization. Echocardiogram 09/01/23 showed EF 35-40% with anteroseptal, anterior wall hypokinesia, mild aortic stenosis. His troponins uptrended and he was started on a heparin drip. Cardiology consulted, he underwent cardiac catheterization on 12/08 but was cancelled due to poor vascular access. He underwent repeat cardiac cath on 12/09 and PCI of left main and ramus. His renal function continued to worsen after cardiac cath. CODE BJ was called on 12/11, noted to be in asystole and V-Fib requiring defibril lation, epinephrine, calcium chloride and sodium bicarb. ROSC was achieved and he was transferred to the ICU. He developed asystole again in the ICU requiring epinephrine and sodium bicarb. ROSC was once again achieved. Nephrology consulted, HD catheter placed and HD started on 12/13. Neurology consulted for anoxic encephalopathy, Brain CT (negative for acute pathology) and EEG (severe encephaopathy) ordered. 12/14 Patient was seen and examined. Intubated. Currently off Levophed. Maintained on Zosyn 3.375 IV TID (D2) for treatment of aspiration PNA. CBC shows WBC 13.7 Hg 9.8 Hct 29.7. ABG pH 7.45, pCO2 35. BMP Na 130, Cl 95, bicarb 31, BUN 77, Cr 4.5, glu 264, Ca 7.6. Phos 5.5. Mag 2.4. CXR done this morning shows diffiuse changes differentials including pulmonary edema/ARDS or PNA. General: no distress, appears at stated age Derm: warm, dry Head: atraumatic, normocephalic, symmetric Eyes: EOMI, no lid lag, anicteric sclera Mouth: no lip lesion, mucus membranes moist Cardiovascular: S1S2 reg, no murmur Lungs: Coarse BS bilateral, no rhonchi, no rales , no accessory muscle use Abdominal: soft, nontender to palpation, no guarding, no appreciable organomegaly Ext: no gross muscle atrophy, no edema, no contractures Neuro: Unable to determine Psych: Unable to determine Based on my assessment of this patient, this patient meets a high complexity level of care. Patient has an acute diagnosis of NSTEMI complicated with renal failure, asystole and VFib requiring debrillation currently intubated that poses a threat to life or bodily function. Acute hypoxic respiratory failure: CXR shows diffuse infiltrates concerning for PNA/ARDS/pulmonary edema. Initiated on HD on 12/13, plans for HD today. Maintained on Zosyn per ID. DuoNeb PRN for SOB/wheezing. Pulmicort 1 INH BID. Acute anoxic encephalopathy: Results of Brain CT and EEG as above. Attempt to wean propofol for sedation holiday. Neurology on board. Sepsis due to aspiration PNA: Maintained on Zosyn 3.375g IV TID (D2). BCx 12/06 negative. Sputum Cx 12/11 and BCx 12/12 prelim negative. ID on board. ZOEY on CKD: Initiated on HD on 12/13. Plans for HD today. Sodium bicarbonate 650 mg PO BID. Nephrology on board. NSTEMI: Status post PCI of left main and ramus 12/09. ASA 81 mg PO QD. Lipitor 80 mg PO QHS. Plavix 75 mg PO QD. Ranexa 500 mg PO BID. Diabetes mellitus with hyperglycemia: ISS. Levemir 10 units QD. Accuechecks Q6H. Hypoglycemic precautions. Hyponatremia Normocytic anemia Chronic conditions: history of CVA, hypertension, BPH, hypothyroidism CODE STATUS: FULL CODE. DVT Prophylaxis: Heparin SQ GI Prophylaxis: Protonix IV Designated medical POA if patient is not able to make medical decisions for themselves: Daughter I have reviewed the following test consultant notes: ID, Cardiology, Pulmonary, Neurology, Nephrology note. I have reviewed the results of the following tests: CBC. BMP. ABG. Mag. Phos. I have ordered the following tests: I have discussed the care of this patient with the following independent historian: I have independently interpreted the following test below: CXR I have discussed the management of this patient with the following physician: Objective - Vital Signs Vital signs: Vital Signs Temp 98.4 F 12/15/23 08:00 Pulse 80 12/15/23 09:15 Resp 21 12/15/23 09:15 BP 126/53 12/14/23 20:00 Pulse Ox 95 12/15/23 09:15 FiO2 35 12/15/23 08:19 Intake & Output 12/14/23 12/15/23 12/15/23 18:59 06:59 18:59 Intake Total 091.698 6333.260 31.237 Output Total 305 2005 55 Balance 147.329 -892.740 -23.763 Weight 75.1 kg 86.4 kg Intake: IV 195 220 10 .9 NS 70 120 10 Piperacillin-Tazobactam 3 125 100 .375 gm In Sodium Chloride 0.9% 100 ml @ 25 mls/hr IVPB Q12HR [facility] Rx #:[id number] Intake, IV Titration 237.329 232.260 1.237 Amount Norepinephrine 32 mg In 124.671 77.443 1.237 Sodium Chloride 0.9% 218 ml @ 0.03 MCG/KG/MIN 1. 223 mls/hr IV .Q24H [facility] Rx#:[id number] propofoL 1,000 mg In 112.658 154.817 Empty Bag 1 bag @ 15 MCG/ KG/MIN 7.83 mls/hr IV . [id number] [facility] Rx#:[id number] Tube Feeding 20 170 20 Hemodialysis 400 Other 90 Output: Urine 305 605 55 Hemodialysis 1400 Other: Voiding Method Indwelling Catheter Indwelling Catheter ABP, PAP, CO, CI - Last Documented Arterial Blood Pressure 122/50 - Labs CBC & Chem 7: 12/15/23 04:27 12/15/23 04:27 Labs: Abnormal Lab Results - Last 24 Hours (Table) 12/14/23 12/14/23 12/14/23 Range/Units 11:50 18:06 20:12 WBC (3.8-10.6) k/uL RBC (4.30-5.90) m/uL Hgb (13.0-17.5) gm/dL Hct (39.0-53.0) % RDW (11.5-15.5) % Neutrophils # (1.3-7.7) k/uL ABG pO2 (83-108) mmHg ABG Total CO2 (19-24) mmol/L Sodium 130 L (137-145) mmol/L Chloride 97 L (98-107) mmol/L Carbon Dioxide (22-30) mmol/L BUN 76 H (9-20) mg/dL Creatinine 4.55 H (0.66-1.25) mg/dL Glucose 189 H (74-99) mg/dL POC Glucose (mg/dL) 275 H 208 H (70-110) mg/dL Calcium 7.6 L (8.4-10.2) mg/dL Phosphorus (2.5-4.5) mg/dL Magnesium (1.6-2.3) mg/dL 12/14/23 12/15/23 12/15/23 Range/Units 23:32 04:27 04:27 WBC 13.7 H (3.8-10.6) k/uL RBC 3.43 L (4.30-5.90) m/uL Hgb 9.8 L (13.0-17.5) gm/dL Hct 29.7 L (39.0-53.0) % RDW 15.6 H (11.5-15.5) % Neutrophils # 11.2 H (1.3-7.7) k/uL ABG pO2 (83-108) mmHg ABG Total CO2 (19-24) mmol/L Sodium 130 L (137-145) mmol/L Chloride 95 L (98-107) mmol/L Carbon Dioxide 21 L (22-30) mmol/L BUN 77 H (9-20) mg/dL Creatinine 4.50 H (0.66-1.25) mg/dL Glucose 264 H (74-99) mg/dL POC Glucose (mg/dL) 218 H (70-110) mg/dL Calcium 7.6 L (8.4-10.2) mg/dL Phosphorus 5.5 H (2.5-4.5) mg/dL Magnesium 2.4 H (1.6-2.3) mg/dL 12/15/23 12/15/23 Range/Units 05:42 06:19 WBC (3.8-10.6) k/uL RBC (4.30-5.90) m/uL Hgb (13.0-17.5) gm/dL Hct (39.0-53.0) % RDW (11.5-15.5) % Neutrophils # (1.3-7.7) k/uL ABG pO2 77 L (83-108) mmHg ABG Total CO2 25 H (19-24) mmol/L Sodium (137-145) mmol/L Chloride (98-107) mmol/L Carbon Dioxide (22-30) mmol/L BUN (9-20) mg/dL Creatinine (0.66-1.25) mg/dL Glucose (74-99) mg/dL POC Glucose (mg/dL) 326 H (70-110) mg/dL Calcium (8.4-10.2) mg/dL Phosphorus (2.5-4.5) mg/dL Magnesium (1.6-2.3) mg/dL Microbiology - Last 24 Hours (Table) 12/13/23 16:35 Blood Culture - Preliminary Blood 12/12/23 22:00 Gram Stain - Preliminary Sputum
[2023-12-15 17:13] LABS: Glucose,Whole Blood 259 mg/dL (70-110)
[2023-12-15] MEDS: HEPARIN SODIUM,PORCINE 5,000 UNIT/ML 1 ML VIAL SQ SCH (20:24)
--- NOTE | 2023-12-15 21:20 | P.PN ---
Subjective Progress Note Date: 12/15/23 Principal diagnosis: Reason for follow-up is fever possible pneumonia Patient is a 83-year-old male past medical history significant for diabetes mellitus hypertension [place] CVA TIA presenting to the hospital with chest pain shortness of breath also noticed to be febrile prompting this consultation. Patient did have worsening of his respiratory status and also cardiac arrest with the patient has been intubated and transferred to the ICU On today's evaluation that is 12/15/2023,the patient is afebrile this morning, the patient remains to be intubated on the vent FiO2 is down to 35% no significant purulent secretions through the ET patient is requiring less pressor support compared to yesterday and no other changes reported by the nursing staff. Patient white count is slightly up to 13.7 today creatinine is 4.50 blood and sputum culture has been negative so far Objective - Vital Signs Vital signs: Vital Signs Temp 98.1 F 12/15/23 12:00 Pulse 89 12/15/23 13:00 Resp 22 12/15/23 13:00 BP 131/53 12/15/23 13:00 Pulse Ox 95 12/15/23 13:00 FiO2 35 12/15/23 12:00 Intake & Output 12/14/23 12/15/23 12/15/23 18:59 06:59 18:59 Intake Total 895.266 6393.260 251.051 Output Total 305 2005 310 Balance 147.329 -892.740 -58.949 Weight 75.1 kg 86.4 kg Intake: IV 195 220 130 .9 NS 70 120 120 Piperacillin-Tazobactam 3 125 100 10 .375 gm In Sodium Chloride 0.9% 100 ml @ 25 mls/hr IVPB Q12HR [facility] Rx #:[id number] Intake, IV Titration 237.329 232.260 101.051 Amount Norepinephrine 32 mg In 124.671 77.443 14.050 Sodium Chloride 0.9% 218 ml @ 0.03 MCG/KG/MIN 1. 223 mls/hr IV .Q24H [facility] Rx#:[id number] propofoL 1,000 mg In 112.658 154.817 87.001 Empty Bag 1 bag @ 15 MCG/ KG/MIN 7.83 mls/hr IV . [id number] [facility] Rx#:[id number] Tube Feeding 20 170 20 Hemodialysis 400 Other 90 Output: Urine 305 605 310 Hemodialysis 1400 Other: Voiding Method Indwelling Catheter Indwelling Catheter Indwelling Catheter ABP, PAP, CO, CI - Last Documented Arterial Blood Pressure 126/49 - Exam GENERAL DESCRIPTION: An elderly male intubated on the vent RESPIRATORY SYSTEM: Unlabored breathing , decreased breath sounds at bases HEART: S1 S2 regular rate and rhythm , ABDOMEN: Soft , no tenderness EXTREMITIES: No edema feet - Labs CBC & Chem 7: 12/15/23 04:27 12/15/23 04:27 Labs: Abnormal Lab Results - Last 24 Hours (Table) 12/14/23 12/14/23 12/14/23 Range/Units 18:06 20:12 23:32 WBC (3.8-10.6) k/uL RBC (4.30-5.90) m/uL Hgb (13.0-17.5) gm/dL Hct (39.0-53.0) % RDW (11.5-15.5) % Neutrophils # (1.3-7.7) k/uL ABG pO2 (83-108) mmHg ABG Total CO2 (19-24) mmol/L Sodium 130 L (137-145) mmol/L Chloride 97 L (98-107) mmol/L Carbon Dioxide (22-30) mmol/L BUN 76 H (9-20) mg/dL Creatinine 4.55 H (0.66-1.25) mg/dL Glucose 189 H (74-99) mg/dL POC Glucose (mg/dL) 208 H 218 H (70-110) mg/dL Calcium 7.6 L (8.4-10.2) mg/dL Phosphorus (2.5-4.5) mg/dL Magnesium (1.6-2.3) mg/dL 12/15/23 12/15/23 12/15/23 Range/Units 04:27 04:27 05:42 WBC 13.7 H (3.8-10.6) k/uL RBC 3.43 L (4.30-5.90) m/uL Hgb 9.8 L (13.0-17.5) gm/dL Hct 29.7 L (39.0-53.0) % RDW 15.6 H (11.5-15.5) % Neutrophils # 11.2 H (1.3-7.7) k/uL ABG pO2 77 L (83-108) mmHg ABG Total CO2 25 H (19-24) mmol/L Sodium 130 L (137-145) mmol/L Chloride 95 L (98-107) mmol/L Carbon Dioxide 21 L (22-30) mmol/L BUN 77 H (9-20) mg/dL Creatinine 4.50 H (0.66-1.25) mg/dL Glucose 264 H (74-99) mg/dL POC Glucose (mg/dL) (70-110) mg/dL Calcium 7.6 L (8.4-10.2) mg/dL Phosphorus 5.5 H (2.5-4.5) mg/dL Magnesium 2.4 H (1.6-2.3) mg/dL 12/15/23 12/15/23 Range/Units 06:19 12:33 WBC (3.8-10.6) k/uL RBC (4.30-5.90) m/uL Hgb (13.0-17.5) gm/dL Hct (39.0-53.0) % RDW (11.5-15.5) % Neutrophils # (1.3-7.7) k/uL ABG pO2 (83-108) mmHg ABG Total CO2 (19-24) mmol/L Sodium (137-145) mmol/L Chloride (98-107) mmol/L Carbon Dioxide (22-30) mmol/L BUN (9-20) mg/dL Creatinine (0.66-1.25) mg/dL Glucose (74-99) mg/dL POC Glucose (mg/dL) 326 H 204 H (70-110) mg/dL Calcium (8.4-10.2) mg/dL Phosphorus (2.5-4.5) mg/dL Magnesium (1.6-2.3) mg/dL Microbiology - Last 24 Hours (Table) 12/12/23 22:00 Gram Stain - Final Sputum Sputum Culture - Final 12/13/23 16:35 Blood Culture - Preliminary Blood Assessment and Plan (1) Fever and chills Current Visit: Yes Status: Acute Code(s): R50.9 - FEVER, UNSPECIFIED SNOMED Code(s): 068280927 (2) Sepsis Current Visit: Yes Status: Acute Code(s): A41.9 - SEPSIS, UNSPECIFIED ORGANISM SNOMED Code(s): 39561890 (3) Aspiration pneumonia Current Visit: Yes Status: Acute Code(s): J69.0 - PNEUMONITIS DUE TO INHALATION OF FOOD AND VOMIT SNOMED Code(s): 971689037 Plan: 1patient presented hospital with chest pain noticed to have a fever on admission and another fever this morning did have predominantly respiratory symptoms with a question of possible pneumonia versus intra-abdominal pathology, but we did have a negative UA no evidence of any cellulitis or joint swelling 2-patient did have significant change in his clinical condition did have a cardiac arrest and admission to the ICU and for possible aspiration, blood and sputum culture so far negative 3-patient to continue with the Zosyn, did have resolution of his fever white count slightly up today and need to be monitored closely Dictation was produced using [employer] dictation software. please excuse any grammatical, word or spelling errors. Time with Patient: Less than 30
[2023-12-15 23:37] LABS: Glucose,Whole Blood 266 mg/dL (70-110)
[2023-12-16 04:37] LABS: Basophils # (A) 0.1 k/uL (0-0.2); Basophils % (A) 1 %; Eosinophils # (A) 0.3 k/uL (0-0.7); Eosinophils % (A) 2 %; HCT 30.4 % (39.0-53.0); HGB 9.8 gm/dL (13.0-17.5); Lymphocytes # (A) 1.3 k/uL (1.0-4.8); Lymphocytes % (A) 10 %; MCH 28.2 pg (25.0-35.0); MCHC 32.3 g/dL (31.0-37.0); MCV 87.3 fL (80.0-100.0); Mean Platelet Volume 9.1; Monocytes # (A) 0.8 k/uL (0-1.0); Monocytes % (A) 6 %; Neutrophils # (A) 10.5 k/uL (1.3-7.7); Neutrophils % (A) 80 %; Platelet Count 262 k/uL (150-450); RBC 3.48 m/uL (4.30-5.90); RDW 15.8 % (11.5-15.5); WBC 13.2 k/uL (3.8-10.6)
[2023-12-16 05:19] LABS: ALT 34 U/L (4-49); AST 38 U/L (17-59); African American GFR (CKD) 22 (>60 ml/min/1.73 sqM); Albumin 2.5 g/dL (3.5-5.0); Alkaline Phosphatase 331 U/L (38-126); Anion Gap 9 mmol/L; Blood Urea Nitrogen 57 mg/dL (9-20); Calcium 7.3 mg/dL (8.4-10.2); Carbon Dioxide 25 mmol/L (22-30); Chloride 98 mmol/L (98-107); Glucose 277 mg/dL (74-99); Non-African American GFR(CKD) 19 (>60 ml/min/1.73 sqM); Potassium 3.7 mmol/L (3.5-5.1); Sodium 132 mmol/L (137-145); Total Protein 5.2 g/dL (6.3-8.2)
[2023-12-16 05:37] LABS: ABG Base Excess 0.7 mmol/L; ABG HCO3 25 mmol/L (21-25); ABG Oxygen Saturation 94.8 % (94-97); ABG PCO2 34 mmHg (35-45); ABG PH 7.46 (7.35-7.45); ABG PO2 72 mmHg (83-108); ABG TCO2 26 mmol/L (19-24); Allen Test Performed? Yes
[2023-12-16 06:07] LABS: Glucose,Whole Blood 315 mg/dL (70-110)
--- NOTE | 2023-12-16 06:12 | PN ---
PROGRESS NOTE Mr. Fraser remains on the ventilator. He is still on Levophed which is being weaned. He is in a sinus rhythm with some improvement in urine output. He has ischemic cardiomyopathy with very limited options available. He had stenting of left main and LAD performed by Dr. Remy on the . The patient's overall prognosis remains poor. Options are limited. Vital however are stable on a small dose of Levophed. S1- S2 heard normally. The rhythm appears to be regular short systolic murmur at left sternal border and apex. Lungs reveal ventilator-assisted breath sounds. Abdomen is soft. Lower extremities reveal diminished pulses. Central nervous system is normal. IMPRESSION: 1. Ischemic cardiomyopathy with multivessel PCI, limited options. 2. Worsening renal failure. Creatinine, however, appears to be stable with some improvement in urine output. 3. Type 2 diabetes. 4. Hyperlipidemia. Prognosis remains poor. We will continue supportive care. MMODL / IJN: [id number] /
[2023-12-16] MEDS: POTASSIUM CHLORIDE 10 MEQ in WATER FOR INJECTION 1 100ML.BAG IVPB STA (06:36)
--- NOTE | 2023-12-16 07:55 | XR ---
EXAMINATION TYPE: XR chest 1V portable DATE OF EXAM: 12/16/2023 COMPARISON: 12/15/2023 HISTORY: Tube placement TECHNIQUE: Single frontal view of the chest is obtained. FINDINGS: ET and NG tube stable. Diffuse bilateral airspace disease with pleural effusions. No pneum othorax. Heart is enlarged. Widening of the right AC joint are likely chronic correlate clinically. D egenerative change of the spine. IMPRESSION: Diffuse pleural-parenchymal changes or early pulmonary edema, ARDS or diffuse pneumonia.
[2023-12-16] MEDS: POTASSIUM CHLORIDE 20 MEQ in WATER FOR INJECTION 1 100ML.BAG IVPB ONE (09:22)
[2023-12-16] MEDS: AMIODARONE 200 MG TAB PO SCH (09:55)
[2023-12-16] MEDS: METOPROLOL TARTRATE 12.5 MG TAB PO SCH (09:55)
[2023-12-16] MEDS: FUROSEMIDE 10 MG/ML 4 ML VIAL IV STA (09:55)
[2023-12-16] MEDS: HYDROmorphone 1 MG/ML 1 ML SYRINGE IVP STA (10:19)
--- NOTE | 2023-12-16 10:49 | P.PN ---
Subjective Patient is seen in follow-up for acute kidney injury on chronic kidney disease. Started on hemodialysis December 14, 2023. No problems with dialysis yesterday. Intubated. On Levophed. Urine output stable. On amiodarone drip. Vital signs are stable. On vasopressor support. General: Resting in bed. HEENT: Intubated. LUNGS: Scattered rhonchi. HEART: Irregular rate and rhythm. ABDOMEN: No distention. EXTREMITITES: Trace edema. Objective - Vital Signs Vital signs: Vital Signs Temp 100.4 F H 12/16/23 08:00 Pulse 108 H 12/16/23 09:10 Resp 20 12/16/23 09:00 BP 124/66 12/16/23 09:00 Pulse Ox 96 12/16/23 09:00 FiO2 35 12/16/23 08:59 Intake & Output 12/15/23 12/16/23 12/16/23 18:59 06:59 18:59 Intake Total 1082.170 718.667 93.288 Output Total 1385 640 150 Balance -302.830 78.667 -56.712 Weight 86.1 kg Intake: IV 190 320 20 .9 NS 90 120 20 Piperacillin-Tazobactam 3 100 100 .375 gm In Sodium Chloride 0.9% 100 ml @ 25 mls/hr IVPB Q12HR [facility] Rx #:[id number] Potassium Chloride 10 meq 100 In Water For Injection 1 100ml.bag @ 100 mls/hr IVPB Q1H [facility] Rx#: [id number] Intake, IV Titration 375.170 38.667 13.288 Amount Amiodarone 450 mg In 240.283 Dextrose 5% in Water 250 ml @ 0.5 MG/MIN 16.667 mls/hr IV .Q15H [facility] Rx#: [id number] Norepinephrine 32 mg In 47.886 0.082 13.288 Sodium Chloride 0.9% 218 ml @ 0.03 MCG/KG/MIN 1. 223 mls/hr IV .Q24H [facility] Rx#:[id number] propofoL 1,000 mg In 87.001 38.585 Empty Bag 1 bag @ 15 MCG/ KG/MIN 7.83 mls/hr IV . [id number] [facility] Rx#:[id number] Tube Feeding 117 360 60 Hemodialysis 400 Output: Urine 485 640 150 Hemodialysis 900 Other: Voiding Method Indwelling Catheter Indwelling Catheter Indwelling Catheter ABP, PAP, CO, CI - Last Documented Arterial Blood Pressure 128/54 - Labs CBC & Chem 7: 12/16/23 04:19 12/16/23 04:19 Labs: Abnormal Lab Results - Last 24 Hours (Table) 12/15/23 12/15/23 12/15/23 Range/Units 12:33 17:12 23:33 WBC (3.8-10.6) k/uL RBC (4.30-5.90) m/uL Hgb (13.0-17.5) gm/dL Hct (39.0-53.0) % RDW (11.5-15.5) % Neutrophils # (1.3-7.7) k/uL ABG pH (7.35-7.45) ABG pCO2 (35-45) mmHg ABG pO2 (83-108) mmHg ABG Total CO2 (19-24) mmol/L Sodium (137-145) mmol/L BUN (9-20) mg/dL Creatinine (0.66-1.25) mg/dL Glucose (74-99) mg/dL POC Glucose (mg/dL) 204 H 259 H 266 H (70-110) mg/dL Calcium (8.4-10.2) mg/dL Alkaline Phosphatase (38-126) U/L Total Protein (6.3-8.2) g/dL Albumin (3.5-5.0) g/dL 12/16/23 12/16/23 12/16/23 Range/Units 04:19 04:19 05:33 WBC 13.2 H (3.8-10.6) k/uL RBC 3.48 L (4.30-5.90) m/uL Hgb 9.8 L (13.0-17.5) gm/dL Hct 30.4 L (39.0-53.0) % RDW 15.8 H (11.5-15.5) % Neutrophils # 10.5 H (1.3-7.7) k/uL ABG pH 7.46 H (7.35-7.45) ABG pCO2 34 L (35-45) mmHg ABG pO2 72 L (83-108) mmHg ABG Total CO2 26 H (19-24) mmol/L Sodium 132 L (137-145) mmol/L BUN 57 H (9-20) mg/dL Creatinine 2.93 H (0.66-1.25) mg/dL Glucose 277 H (74-99) mg/dL POC Glucose (mg/dL) (70-110) mg/dL Calcium 7.3 L (8.4-10.2) mg/dL Alkaline Phosphatase 331 H (38-126) U/L Total Protein 5.2 L (6.3-8.2) g/dL Albumin 2.5 L (3.5-5.0) g/dL 12/16/23 Range/Units 06:06 WBC (3.8-10.6) k/uL RBC (4.30-5.90) m/uL Hgb (13.0-17.5) gm/dL Hct (39.0-53.0) % RDW (11.5-15.5) % Neutrophils # (1.3-7.7) k/uL ABG pH (7.35-7.45) ABG pCO2 (35-45) mmHg ABG pO2 (83-108) mmHg ABG Total CO2 (19-24) mmol/L Sodium (137-145) mmol/L BUN (9-20) mg/dL Creatinine (0.66-1.25) mg/dL Glucose (74-99) mg/dL POC Glucose (mg/dL) 315 H (70-110) mg/dL Calcium (8.4-10.2) mg/dL Alkaline Phosphatase (38-126) U/L Total Protein (6.3-8.2) g/dL Albumin (3.5-5.0) g/dL Microbiology - Last 24 Hours (Table) 12/13/23 16:35 Blood Culture - Preliminary Blood 12/12/23 22:00 Gram Stain - Final Sputum Sputum Culture - Final Assessment and Plan Plan: Assessment: 1. Acute kidney injury secondary to hemodynamic ATN, cardiorenal syndrome and cardiac arrest. Also component of contrast-induced acute kidney injury. Creatinine up to 5.8 dated December 14, 2023. Was oliguric, now nonoliguric. UA benign. No hydronephrosis noted on CAT scan. 2. 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 3. Coronary artery disease status postcardiac catheterization with stent placement on December 10, 2023. Not a candidate for CABG. 4. Metabolic acidosis secondary to acute kidney injury. Better. On oral bicarb. 5. Hyponatremia. Component of poor solute intake. Hypervolemic. Better. 6. Diabetes mellitus. 7. Possible pneumonia on antibiotics. ID following. 8. Volume overload. Improved with ultrafiltration and better urine output. 9. Status postcardiac arrest - V-fib and PEA. On amiodarone drip. Plan: Hold off on hemodialysis today. Lasix 40 mg IV once today. Potassium replaced. Wean FiO2 and vasopressors. Phosphorus level 5.5 dated December 15, 2023. Urine output improved. Monitor for renal recovery. Prognosis guarded. Continue to assess daily for need for renal replacement therapy.
--- NOTE | 2023-12-16 10:56 | PN ---
PROGRESS NOTE Mr. Fraser has multivessel PCI. As he is currently on a ventilator, he is on a smaller dose of Levophed which I am suggesting that we can wean off. He is on IV amiodarone, which I will switch through the NG tube to 200 mg b.i.d., and also Lopressor 12.5 mg t.i.d. The patient remains on a ventilator, who is responding but not meaningfully. He can open his eyes, but no meaningful response. PHYSICAL EXAMINATION: HEART: S1 and S2 heard normally. Rhythm is sinus today. Regular. LUNGS: Ventilator-assisted breath sounds are audible bilaterally. ABDOMEN: Soft. LOWER EXTREMITIES: Reveal diminished pulses. CENTRAL NERVOUS SYSTEM: Assessment not performed. IMPRESSION: 1. Ischemic cardiomyopathy with poor ejection fraction, recent left main and circumflex stenting. 2. Hypertension. 3. Hyperlipidemia. 4. Paroxysmal atrial fibrillation, maintaining sinus rhythm. RECOMMENDATIONS: Small dose of Lopressor and amiodarone orally, and wean off Levophed. Prognosis remains poor. MMODL / IJN: [id number] /
--- NOTE | 2023-12-16 11:35 | P.PN ---
Subjective Progress Note Date: 12/16/23 83-year-old male with PMH of CAD, history of CVA, diabetes mellitus, chronic kidney disease, hypertension, BPH, hypothyroidism presents the ED for chest pain. Chest pain woke him up at 3AM. Chest pain mid sternal, described as rumbling, radiating to both arms. Associated symptoms include diaphoresis. Chest pain was relieved by sublingual nitroglycerin. Of note, also reports fevers as high as 101.3F over the past 3 days. No cough, rash, urinary or bowel symptoms. In the ED, he underwent extensive evaluation. BP 98/61, HR 84, RR 20, T 102.6F, 100% on 1 LNC. CBC, coag panel and CMP was done significant for lymphocyte count of 0.5, sodium 1:30, bicarb 18, BUN 34, creatinine 1.8, glucose 184, calcium 8.2, alk phos 167. Magnesium 2.2. Troponin 0.028. Flu, RSV, COVID-19 negative. EKG showed sinus rhythm with left bundle branch block. Chest x-ray showed small right pleural effusion and pulmonary vascular congestion. Patient is admitted for chest pain, rule out acute coronary syndrome and cardiology consultation. Workup from previous admission was reviewed. Cardiac cath 09/04/23 showed 70-80% distal left main, 100% ostial LAD with collateral, 80-90% ostial PDA, 80% proximal OM1. He has been evaluated by CT surgery in the past deemed to be poor surgical candidate for revascularization. Echocardiogram 09/01/23 showed EF 35-40% with anteroseptal, anterior wall hypokinesia, mild aortic stenosis. His troponins uptrended and he was started on a heparin drip. Cardiology consulted, he underwent cardiac catheterization on 12/08 but was cancelled due to poor vascular access. He underwent repeat cardiac cath on 12/09 and PCI of left main and ramus. His renal function continued to worsen after cardiac cath. CODE BJ was called on 12/11, noted to be in asystole and V-Fib requiring defibril lation, epinephrine, calcium chloride and sodium bicarb. ROSC was achieved and he was transferred to the ICU. He developed asystole again in the ICU requiring epinephrine and sodium bicarb. ROSC was once again achieved. Nephrology consulted, HD catheter placed and HD started on 12/13. Neurology consulted for anoxic encephalopathy, Brain CT (negative for acute pathology) and EEG (severe encephaopathy) ordered. 12/14 Patient was seen and examined. Intubated. Currently on Levophed at 0.13 mcg/kg/min. Maintained on Zosyn 3.375 IV TID (D2) for treatment of aspiration PNA. CBC shows WBC 13.7 Hg 9.8 Hct 29.7. ABG pH 7.45, pCO2 35. BMP Na 130, Cl 95, bicarb 31, BUN 77, Cr 4.5, glu 264, Ca 7.6. Phos 5.5. Mag 2.4. CXR done this morning shows diffiuse changes differentials including pulmonary edema/ARDS or PNA. 12/15 Patient was seen and examined. Intubated. Off Propofol. Opening eyes but not following direction. No plans for extubation per discussion with Dr. Bey today. Discussed with Dr. Meeks, plans for Lasix 40 mg IV today. Currently on Levophed 0.06 mcg/kg/min. CXR shows signs of pulmonary edema. Maintained on Zosyn 3.375 IV TID (D3) for treatment of aspiration PNA. CBC WBC 13.2 Hg 9.8 Hct 30.4. ABG pH 7.46 pCO2 34. BMP Na 132, BUN 57, Cr 2.93, glu 277, alb 2.5. BG ranging in the 2-300s, plans to add Novolog 3 units TID along with MISS and Levemir. General: no distress, appears at stated age Derm: warm, dry Head: atraumatic, normocephalic, symmetric Eyes: EOMI, no lid lag, anicteric sclera Mouth: no lip lesion, mucus membranes moist Cardiovascular: S1S2 reg, no murmur Lungs: Coarse BS bilateral, no rhonchi, no rales , no accessory muscle use Abdominal: soft, nontender to palpation, no guarding, no appreciable organomegaly Ext: no gross muscle atrophy, no edema, no contractures Neuro: Unable to determine Psych: Unable to determine Based on my assessment of this patient, this patient meets a high complexity level of care. Patient has an acute diagnosis of NSTEMI complicated with renal failure, asystole and VFib requiring debrillation currently intubated that poses a threat to life or bodily function. Acute hypoxic respiratory failure: CXR shows diffuse infiltrates concerning for PNA/ARDS/pulmonary edema. Initiated on HD on 12/13 and 12/14. Maintained on Zosyn per ID. DuoNeb PRN for SOB/wheezing. Pulmicort 1 INH BID. Lasix 40 mg IV x 1 today. Acute anoxic encephalopathy: Results of Brain CT and EEG as above. Attempt to wean propofol for sedation holiday. Neurology on board. Sepsis due to aspiration PNA: Maintained on Zosyn 3.375g IV TID (D3). BCx 12/06 negative. Sputum Cx 12/11 and BCx 12/12 prelim negative. ID on board. ZOEY on CKD: Initiated on HD on 12/13 and 12/14. Plans to hold HD today. Sodium bicarbonate 650 mg PO BID. Nephrology on board. NSTEMI: Status post PCI of left main and ramus 12/09. ASA 81 mg PO QD. Lipitor 80 mg PO QHS. Plavix 75 mg PO QD. Ranexa 500 mg PO BID. Diabetes mellitus with hyperglycemia: ISS. Add Novolog 3 units TID. Levemir 10 units QD. Accuechecks Q6H. Hypoglycemic precautions. Hyponatremia Normocytic anemia Chronic conditions: history of CVA, hypertension, BPH, hypothyroidism CODE STATUS: FULL CODE. DVT Prophylaxis: Heparin SQ GI Prophylaxis: Protonix IV Designated medical POA if patient is not able to make medical decisions for themselves: Daughter I have reviewed the following licensed tax consultant notes: ID, Cardiology, Pulmonary, Neurology, Nephrology note. I have reviewed the results of the following tests: CBC. BMP. ABG. I have ordered the following tests: I have discussed the care of this patient with the following independent historian: I have independently interpreted the following test below: CXR I have discussed the management of this patient with the following physician: Discussed with Dr. Meeks and Dr. Bey. Objective - Vital Signs Vital signs: Vital Signs Temp 100.4 F H 12/16/23 08:00 Pulse 96 12/16/23 11:15 Resp 20 12/16/23 11:15 BP 101/57 12/16/23 11:15 Pulse Ox 95 12/16/23 11:15 FiO2 35 12/16/23 08:59 Intake & Output 12/15/23 12/16/23 12/16/23 18:59 06:59 18:59 Intake Total 1082.170 718.667 116.837 Output Total 1385 640 230 Balance -302.830 78.667 -113.163 Weight 86.1 kg Intake: IV 190 320 40 .9 NS 90 120 40 Piperacillin-Tazobactam 3 100 100 .375 gm In Sodium Chloride 0.9% 100 ml @ 25 mls/hr IVPB Q12HR [facility] Rx #:[id number] Potassium Chloride 10 meq 100 In Water For Injection 1 100ml.bag @ 100 mls/hr IVPB Q1H [facility] Rx#: [id number] Intake, IV Titration 375.170 38.667 16.837 Amount Amiodarone 450 mg In 240.283 Dextrose 5% in Water 250 ml @ 0.5 MG/MIN 16.667 mls/hr IV .Q15H [facility] Rx#: [id number] Norepinephrine 32 mg In 47.886 0.082 16.837 Sodium Chloride 0.9% 218 ml @ 0.03 MCG/KG/MIN 1. 223 mls/hr IV .Q24H [facility] Rx#:[id number] propofoL 1,000 mg In 87.001 38.585 Empty Bag 1 bag @ 15 MCG/ KG/MIN 7.83 mls/hr IV . [id number] [facility] Rx#:[id number] Tube Feeding 117 360 60 Hemodialysis 400 Output: Urine 485 640 230 Hemodialysis 900 Other: Voiding Method Indwelling Catheter Indwelling Catheter Indwelling Catheter ABP, PAP, CO, CI - Last Documented Arterial Blood Pressure 107/52 - Labs CBC & Chem 7: 12/16/23 04:19 12/16/23 04:19 Labs: Abnormal Lab Results - Last 24 Hours (Table) 12/15/23 12/15/23 12/15/23 Range/Units 12:33 17:12 23:33 WBC (3.8-10.6) k/uL RBC (4.30-5.90) m/uL Hgb (13.0-17.5) gm/dL Hct (39.0-53.0) % RDW (11.5-15.5) % Neutrophils # (1.3-7.7) k/uL ABG pH (7.35-7.45) ABG pCO2 (35-45) mmHg ABG pO2 (83-108) mmHg ABG Total CO2 (19-24) mmol/L Sodium (137-145) mmol/L BUN (9-20) mg/dL Creatinine (0.66-1.25) mg/dL Glucose (74-99) mg/dL POC Glucose (mg/dL) 204 H 259 H 266 H (70-110) mg/dL Calcium (8.4-10.2) mg/dL Alkaline Phosphatase (38-126) U/L Total Protein (6.3-8.2) g/dL Albumin (3.5-5.0) g/dL 12/16/23 12/16/23 12/16/23 Range/Units 04:19 04:19 05:33 WBC 13.2 H (3.8-10.6) k/uL RBC 3.48 L (4.30-5.90) m/uL Hgb 9.8 L (13.0-17.5) gm/dL Hct 30.4 L (39.0-53.0) % RDW 15.8 H (11.5-15.5) % Neutrophils # 10.5 H (1.3-7.7) k/uL ABG pH 7.46 H (7.35-7.45) ABG pCO2 34 L (35-45) mmHg ABG pO2 72 L (83-108) mmHg ABG Total CO2 26 H (19-24) mmol/L Sodium 132 L (137-145) mmol/L BUN 57 H (9-20) mg/dL Creatinine 2.93 H (0.66-1.25) mg/dL Glucose 277 H (74-99) mg/dL POC Glucose (mg/dL) (70-110) mg/dL Calcium 7.3 L (8.4-10.2) mg/dL Alkaline Phosphatase 331 H (38-126) U/L Total Protein 5.2 L (6.3-8.2) g/dL Albumin 2.5 L (3.5-5.0) g/dL 12/16/23 Range/Units 06:06 WBC (3.8-10.6) k/uL RBC (4.30-5.90) m/uL Hgb (13.0-17.5) gm/dL Hct (39.0-53.0) % RDW (11.5-15.5) % Neutrophils # (1.3-7.7) k/uL ABG pH (7.35-7.45) ABG pCO2 (35-45) mmHg ABG pO2 (83-108) mmHg ABG Total CO2 (19-24) mmol/L Sodium (137-145) mmol/L BUN (9-20) mg/dL Creatinine (0.66-1.25) mg/dL Glucose (74-99) mg/dL POC Glucose (mg/dL) 315 H (70-110) mg/dL Calcium (8.4-10.2) mg/dL Alkaline Phosphatase (38-126) U/L Total Protein (6.3-8.2) g/dL Albumin (3.5-5.0) g/dL Microbiology - Last 24 Hours (Table) 12/13/23 16:35 Blood Culture - Preliminary Blood 12/12/23 22:00 Gram Stain - Final Sputum Sputum Culture - Final
[2023-12-16 12:13] LABS: Glucose,Whole Blood 319 mg/dL (70-110)
[2023-12-16] MEDS: INSULIN ASPART (NovoLOG) 100 UNIT/ML VIAL SQ SCH (12:57)
--- NOTE | 2023-12-16 13:28 | P.PN ---
Subjective Progress Note Date: 12/16/23 Principal diagnosis: Cardiac arrest x 2 83-year-old male patient who sustained a cardiac yesterday at 2033 and following that the patient was moved to the intensive care unit. The patient was found in asystole. He received CPR based on ACLS protocol. Initial downtime was around 25 to 30 minutes and the patient received 4 rounds of epinephrine and CPR. During the process the patient was also found to be in V-fib and was defibrillated. He was brought into the intensive care unit where he had another code at 2106 and the second code was brief. He was placed on pressors. He is already intubated on mechanical ventilator.. This morning, the patient is on propofol which is running at 50 mcg/kg/min. He is hypotensive and is on norepinephrine 0.18 micrograms per kilogram per minute. He was a difficult IV access. Unable to insert an arterial line. The triple-lumen catheter was inserted in the right femoral vein for hemodynamic support and pressors. At this point in time, he is on assist-control mode at a rate of 20, tidal volume of 400, FiO2 of 70% with a PEEP of 5. The chest x-ray is showing adequate positioning of the ET tube. Orotracheal tube was initially in the right mainstem that was pulled out. No change in the bilateral opacities seen. The patient also has a moderate-sized right-sided pleural effusion along with pulm vascular congestion. Blood work from today shows a WBC count 9.9 with a hemoglobin 10.9 and a platelet count of 147. pH is 7.43 with a pCO2 of 34 and a pO2 of 84. Sodium levels at 127 and potassium levels at 4.3 with a serum bicarb of 17 and the BUN is at 80 with a creatinine of 4.2 as the patient has an acute on top of chronic kidney injury. This could have been also related to contrast as the patient's creatinine was gradually going up following his cardiac procedures. Troponin currently is at 3.07 and it is uptrending again post cardiac arrest. Cardiology was informed of those changes. No plans for any further intervention. In terms of his cardiac history, the patient is followed by Dr. Nelson who presents with symptoms of chest discomfort. He has a known history of CAD underwent stenting of the LAD in September [address] Remy and subsequently was readmitted about a week after with acute thrombosis and underwent angioplasty and thrombectomy. He underwent repeat cardiac catheterization in August and was found to have totally occluded LAD with distal left main disease but was felt to be a poor candidate for any surgical intervention. He presents with symptoms of chest discomfort and dyspnea at rest yesterday He usually has exertional angina pectoris with dyspnea on exertion. His activity is limited. He has evidence of cardiomyopathy with segmental wall motion abnormality consistent with his initial presentation with myocardial infarction.Patient is status attempted catheterization with Dr. Nelson on 12/09/2023. Dr. Nelson had difficulty obtaining access and his cardiac catheteriz ation was canceled. He underwent repeat cardiac catheterization with Dr. Remy with PCI of left main and ramus. Patient was hypotensive during the procedure. Patient was reevaluated today on 12/14/2023, patient remains in the ICU, intubated and mechanically ventilated. Patient was initially admitted on 12/05 with unstable angina, chest pain, severe coronary artery disease, and he was never felt to be a candidate for any surgical intervention. He had chronically occluded ostial LAD and ischemic cardiomyopathy. In addition he had chronic kidney disease and diabetes. As noted above the patient had cardiac arrest x 2 remains intubated and mechanically ventilated, he is on assist-control rate of 20 tidal volume 400 FiO2 50% PEEP of 5 ABG showed a pO2 of 88 pCO2 35 pH of 7.41. Patient may have developed anoxic brain injury, hence neurology will be consulted. Patient required a right brachial arterial line placement today, and this was done uneventfully. Patient will be started today on tube feeding. Looking back at the patient's history, patient clearly has a significant cardiac history, on 12/11, patient had V-fib cardiac arrest x 2 and he had CPR at 1 time it was 20 minutes the second time was 8 minutes of CPR. Obviously we are quite concerned about the possibility of anoxic brain injury. Chest x-ray is showing evidence of pulmonary edema, underlying pneumonia is not entirely ruled out but felt to be less likely patient is requiring norepinephrine at 0.16 mcg/kg/min also requiring propofol at 40 mcg/kg/min, FiO2 was decreased down to 45% today. Renal functioning is continuing to worse, patient is not making much urine, and spite of giving him Lasix and Bumex renal replacement therapy will be initiated today. Dialysis catheter was placed this morning. WBC count today is 10.3 hemoglobin is 9.9 basic metabolic profile is normal except for sodium of 129, BUN is up to 88 creatinine 5.81 blood sugar is 272 Patient was reevaluated today on 12/15/2023, remains in the ICU, intubated and mechanically ventilated he is on assist-control rate of 20 tidal volume 400 FiO2 35% and PEEP of 5 ABG showed a pO2 of 77 pCO2 35 pH of 7.45, patient is undergoing hemodialysis this morning. Remains on amiodarone drip, propofol at 25 mcg/kg/min is also on norepinephrine drip at 0.14 mcg/kg/min remains empirically on Zosyn. Chest x-ray is consistent with diffuse pleuroparenchymal changes/pulmonary edema picture, possible ARDS but I believe that pulmonary edema is really cardiogenic in nature. Sibling has history of ischemic cardiomyopathy. CBC showed WBC of 13.7 hemoglobin 9.8. Basic metabolic profile is normal sodium is 130, BUN is 77 creatinine 4.50, again the patient will have hemodialysis today neurologically, the patient is not responding to any stimuli, being followed by neurology, and I honestly believe the patient has most likely severe anoxic brain injury. Off sedation yesterday, patient was opening his eyes only but no other responses noted Evaluated today on 12/16/2023, remains in the ICU, intubated and mechanically ventilated, on assist-control rate of 20 tidal volume 400 FiO2 35% PEEP of 5 ABG showed a pO2 of 72 pCO2 34 pH of 7.46. Patient is opening eyes only but no responses whatsoever except opening eyes. And no purposeful movement is noted. He is off sedation for the last 24 hours, still requiring norepinephrine at 0.09 mcg/kg/min remains on Zosyn empirically patient has a decent urine output of 50 to 100 cc/h chest x-ray continues to show evidence of pulmonary edema or possible aspiration pneumonia. Patient is being treated for both. I suspect clinically that this is more of pulmonary edema secondary to severe LV dysfun ction. At any rate we will continue to keep the patient off sedation as long as tolerated to fully assess mental status, presently although we could get is patient opening his eyes only. WBC count is 13.2 hemoglobin 9.8. Basic metabolic profile is normal BUN is 57 creatinine 2.93, patient has been on hemodialysis since 12/13, his last dialysis was yesterday. Urine output is picking up slightly. Objective - Vital Signs Vital signs: Vital Signs Temp 100.6 F H 12/16/23 12:00 Pulse 98 12/16/23 13:00 Resp 20 12/16/23 13:00 BP 105/61 12/16/23 13:00 Pulse Ox 95 12/16/23 13:00 FiO2 35 12/16/23 12:00 Intake & Output 12/15/23 12/16/23 12/16/23 18:59 06:59 18:59 Intake Total 1082.170 718.667 439.175 Output Total 1385 640 310 Balance -302.830 78.667 129.175 Weight 86.1 kg Intake: IV 190 320 160 .9 NS 90 120 60 Piperacillin-Tazobactam 3 100 100 100 .375 gm In Sodium Chloride 0.9% 100 ml @ 25 mls/hr IVPB Q12HR [facility] Rx #:[id number] Potassium Chloride 10 meq 100 In Water For Injection 1 100ml.bag @ 100 mls/hr IVPB Q1H [facility] Rx#: [id number] Intake, IV Titration 375.170 38.667 34.175 Amount Amiodarone 450 mg In 240.283 Dextrose 5% in Water 250 ml @ 0.5 MG/MIN 16.667 mls/hr IV .Q15H [facility] Rx#: [id number] Norepinephrine 32 mg In 47.886 0.082 29.955 Sodium Chloride 0.9% 218 ml @ 0.03 MCG/KG/MIN 1. 223 mls/hr IV .Q24H [facility] Rx#:[id number] propofoL 1,000 mg In 87.001 38.585 4.22 Empty Bag 1 bag @ 15 MCG/ KG/MIN 7.83 mls/hr IV . [id number] [facility] Rx#:[id number] Tube Feeding 117 360 215 Hemodialysis 400 Other 30 Output: Urine 485 640 310 Hemodialysis 900 Other: Voiding Method Indwelling Catheter Indwelling Catheter Indwelling Catheter ABP, PAP, CO, CI - Last Documented Arterial Blood Pressure 109/54 - Exam General: Revealed 83-year-old white male intubated mechanically ventilated, opens eyes only but does not respond to any stimuli. Head: Atraumatic, normocephalic Skin: Skin is warm and dry and no rashes or lesions are noted. Eye: Pupils are equal, round and reactive to light, extra-ocular movements are intact; there is normal conjunctiva bilaterally. Ears, nose, mouth and throat: There are moist mucous membranes and no oral lesions. Neck: The neck is supple, there is no tenderness or JVD. Endotracheal tube a nd orogastric tube are intact. Cardiovascular: Distant S1-S2, no S3 gallop. Respiratory: Fine crackles at the bases noted bilaterally. Gastrointestinal: Soft, non-distended, non-tender abdomen without masses or organomegaly noted. There is no rebound or guarding present. Bowel sounds are unremarkable. Back: There is no tenderness to palpation in the midline. There is no obvious deformity. Musculoskeletal: Normal ROM, no tenderness, 1+ bipedal edema noted.. There is no calf tenderness Neurological: Opens eyes only otherwise unresponsive to any stimuli. Psychiatric: Could not assess - Labs CBC & Chem 7: 12/16/23 04:19 12/16/23 04:19 Labs: Abnormal Lab Results - Last 24 Hours (Table) 12/15/23 12/15/23 12/16/23 Range/Units 17:12 23:33 04:19 WBC 13.2 H (3.8-10.6) k/uL RBC 3.48 L (4.30-5.90) m/uL Hgb 9.8 L (13.0-17.5) gm/dL Hct 30.4 L (39.0-53.0) % RDW 15.8 H (11.5-15.5) % Neutrophils # 10.5 H (1.3-7.7) k/uL ABG pH (7.35-7.45) ABG pCO2 (35-45) mmHg ABG pO2 (83-108) mmHg ABG Total CO2 (19-24) mmol/L Sodium (137-145) mmol/L BUN (9-20) mg/dL Creatinine (0.66-1.25) mg/dL Glucose (74-99) mg/dL POC Glucose (mg/dL) 259 H 266 H (70-110) mg/dL Calcium (8.4-10.2) mg/dL Alkaline Phosphatase (38-126) U/L Total Protein (6.3-8.2) g/dL Albumin (3.5-5.0) g/dL 03/12/16/23 12/16/23 Range/Units 04:19 05:33 06:06 WBC (3.8-10.6) k/uL RBC (4.30-5.90) m/uL Hgb (13.0-17.5) gm/dL Hct (39.0-53.0) % RDW (11.5-15.5) % Neutrophils # (1.3-7.7) k/uL ABG pH 7.46 H (7.35-7.45) ABG pCO2 34 L (35-45) mmHg ABG pO2 72 L (83-108) mmHg ABG Total CO2 26 H (19-24) mmol/L Sodium 132 L (137-145) mmol/L BUN 57 H (9-20) mg/dL Creatinine 2.93 H (0.66-1.25) mg/dL Glucose 277 H (74-99) mg/dL POC Glucose (mg/dL) 315 H (70-110) mg/dL Calcium 7.3 L (8.4-10.2) mg/dL Alkaline Phosphatase 331 H (38-126) U/L Total Protein 5.2 L (6.3-8.2) g/dL Albumin 2.5 L (3.5-5.0) g/dL 12/16/23 Range/Units 12:12 WBC (3.8-10.6) k/uL RBC (4.30-5.90) m/uL Hgb (13.0-17.5) gm/dL Hct (39.0-53.0) % RDW (11.5-15.5) % Neutrophils # (1.3-7.7) k/uL ABG pH (7.35-7.45) ABG pCO2 (35-45) mmHg ABG pO2 (83-108) mmHg ABG Total CO2 (19-24) mmol/L Sodium (137-145) mmol/L BUN (9-20) mg/dL Creatinine (0.66-1.25) mg/dL Glucose (74-99) mg/dL POC Glucose (mg/dL) 319 H (70-110) mg/dL Calcium (8.4-10.2) mg/dL Alkaline Phosphatase (38-126) U/L Total Protein (6.3-8.2) g/dL Albumin (3.5-5.0) g/dL Microbiology - Last 24 Hours (Table) 12/13/23 16:35 Blood Culture - Preliminary Blood 12/12/23 22:00 Gram Stain - Final Sputum Sputum Culture - Final Assessment and Plan Assessment: Impression: Cardiac arrest x 2 Severe coronary artery disease and acute non-ST elevation myocardial infarction Acute hypoxic respiratory failure secondary to above Cardiogenic shock Acute systolic congestive heart failure Anoxic encephalopathy Severe ischemic cardiomyopathy and LV dysfunction with ejection fraction of 35 to 40% History of CVA History of medical debility and multiple comorbidities Type 2 diabetes Dyslipidemia Acute kidney injury , on hemodialysis History of underlying coronary artery disease with previous stent of LAD September 22, 2001 3, complicated by acute thrombosis requiring angioplasty and thromb ectomy repeat cardiac catheterization 09/12 showed totally occluded LAD with distal left main disease felt to be poor candidate for surgical intervention Commendation: Continue ventilatory support, not ready for weaning unless his neurological status shows significant improvement Continue hemodynamic suppor Continue to hold sedation unless necessary Continue aspirin and Plavix Continue nutritional support/enteral feeding Daily assessment of mental status off sedation Continue hemodialysis Continue GI and DVT prophylaxis Continue bronchodilators and updrafts Continue statins Condition is critical Critical care time is over 30 minutes Time with Patient: Greater than 30
[2023-12-16] MEDS: LORazepam 2 MG/ML INJ IV STA (14:48)
--- NOTE | 2023-12-16 14:53 | P.PN ---
Subjective Progress Note Date: 12/16/23 I am following up with patient and per nurse patient was on low dose of IV Propofol today about 15mcg/kg/min which is held but received Dilaudid. Objective - Vital Signs Vital signs: Vital Signs Temp 100.6 F H 12/16/23 12:00 Pulse 98 12/16/23 13:00 Resp 20 12/16/23 13:00 BP 105/61 12/16/23 13:00 Pulse Ox 95 12/16/23 13:00 FiO2 35 12/16/23 12:00 Intake & Output 12/15/23 12/16/23 12/16/23 18:59 06:59 18:59 Intake Total 1082.170 718.667 439.175 Output Total 1385 640 310 Balance -302.830 78.667 129.175 Weight 86.1 kg Intake: IV 190 320 160 .9 NS 90 120 60 Piperacillin-Tazobactam 3 100 100 100 .375 gm In Sodium Chloride 0.9% 100 ml @ 25 mls/hr IVPB Q12HR [facility] Rx #:[id number] Potassium Chloride 10 meq 100 In Water For Injection 1 100ml.bag @ 100 mls/hr IVPB Q1H [facility] Rx#: [id number] Intake, IV Titration 375.170 38.667 34.175 Amount Amiodarone 450 mg In 240.283 Dextrose 5% in Water 250 ml @ 0.5 MG/MIN 16.667 mls/hr IV .Q15H [facility] Rx#: [id number] Norepinephrine 32 mg In 47.886 0.082 29.955 Sodium Chloride 0.9% 218 ml @ 0.03 MCG/KG/MIN 1. 223 mls/hr IV .Q24H [facility] Rx#:[id number] propofoL 1,000 mg In 87.001 38.585 4.22 Empty Bag 1 bag @ 15 MCG/ KG/MIN 7.83 mls/hr IV . [id number] [facility] Rx#:[id number] Tube Feeding 117 360 215 Hemodialysis 400 Other 30 Output: Urine 485 640 310 Hemodialysis 900 Other: Voiding Method Indwelling Catheter Indwelling Catheter Indwelling Catheter ABP, PAP, CO, CI - Last Documented Arterial Blood Pressure 109/54 - Exam GENERAL: The patient is lying in bed and does not appear in acute distress. LUNG: Intubated on ventilator. NEUROLOGICAL: Limited. Is on IV Propofol 15mcg/kg/min which is held since morning. Dilaudid. Is comatose. GCS 5 ( E4, VT1, M1) Patient opens eyes spontaneously. Primary gaze is midline. Pupils are round about 5mm and reactive to light bilaterally. He moves head side to side. No facial weakness. Patient does not follow any commands or attempt to verbalize the. Has intact gag and cough. His breathing over the vent Motor is no spontaneous movement noted. He grimaces face to painful stimuli bilaterally over upper extremity Reflexes is 1 positive throughout. Plantars are mute bilaterally. Some of the workup during his hospital visit consisted of. Sodium is 129-->130 Creatinine is 5.81 Most recent AST is 121 which is trending up and ALTs 80s also trended up from initial presentation. CT the head is reported as no acute intracranial process. Routine EEG is abnormal. The background slowing is suggestive of severe encephalopathy. There is no focal slowing, epileptiform discharges or seizure on the EEG. - Labs CBC & Chem 7: 12/16/23 04:19 12/16/23 04:19 Labs: Abnormal Lab Results - Last 24 Hours (Table) 12/15/23 12/15/23 12/16/23 Range/Units 17:12 23:33 04:19 WBC 13.2 H (3.8-10.6) k/uL RBC 3.48 L (4.30-5.90) m/uL Hgb 9.8 L (13.0-17.5) gm/dL Hct 30.4 L (39.0-53.0) % RDW 15.8 H (11.5-15.5) % Neutrophils # 10.5 H (1.3-7.7) k/uL ABG pH (7.35-7.45) ABG pCO2 (35-45) mmHg ABG pO2 (83-108) mmHg ABG Total CO2 (19-24) mmol/L Sodium (137-145) mmol/L BUN (9-20) mg/dL Creatinine (0.66-1.25) mg/dL Glucose (74-99) mg/dL POC Glucose (mg/dL) 259 H 266 H (70-110) mg/dL Calcium (8.4-10.2) mg/dL Alkaline Phosphatase (38-126) U/L Total Protein (6.3-8.2) g/dL Albumin (3.5-5.0) g/dL 12/16/23 12/16/23 12/16/23 Range/Units 04:19 05:33 06:06 WBC (3.8-10.6) k/uL RBC (4.30-5.90) m/uL Hgb (13.0-17.5) gm/dL Hct (39.0-53.0) % RDW (11.5-15.5) % Neutrophils # (1.3-7.7) k/uL ABG pH 7.46 H (7.35-7.45) ABG pCO2 34 L (35-45) mmHg ABG pO2 72 L (83-108) mmHg ABG Total CO2 26 H (19-24) mmol/L Sodium 132 L (137-145) mmol/L BUN 57 H (9-20) mg/dL Creatinine 2.93 H (0.66-1.25) mg/dL Glucose 277 H (74-99) mg/dL POC Glucose (mg/dL) 315 H (70-110) mg/dL Calcium 7.3 L (8.4-10.2) mg/dL Alkaline Phosphatase 331 H (38-126) U/L Total Protein 5.2 L (6.3-8.2) g/dL Albumin 2.5 L (3.5-5.0) g/dL 12/16/23 Range/Units 12:12 WBC (3.8-10.6) k/uL RBC (4.30-5.90) m/uL Hgb (13.0-17.5) gm/dL Hct (39.0-53.0) % RDW (11.5-15.5) % Neutrophils # (1.3-7.7) k/uL ABG pH (7.35-7.45) ABG pCO2 (35-45) mmHg ABG pO2 (83-108) mmHg ABG Total CO2 (19-24) mmol/L Sodium (137-145) mmol/L BUN (9-20) mg/dL Creatinine (0.66-1.25) mg/dL Glucose (74-99) mg/dL POC Glucose (mg/dL) 319 H (70-110) mg/dL Calcium (8.4-10.2) mg/dL Alkaline Phosphatase (38-126) U/L Total Protein (6.3-8.2) g/dL Albumin (3.5-5.0) g/dL Microbiology - Last 24 Hours (Table) 12/13/23 16:35 Blood Culture - Preliminary Blood Assessment and Plan Assessment: This is an 83-year-old gentleman who presents because chest pain. During his hospital stay he was felt to have unstable angina/NSTEMI status post stenting of the left main and ramus. On 12/12/2019 4 at night she had 2 episodes of the cardiac arrest and in total it lasted for about 23 minutes. 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 Patient was asystole. His cardiac arrest is most likely related to his extensive coronary artery disease. Unstable angina/NSTEMI status post stenting of left main and ramus Acute kidney injury Acute hypoxic respiratory failure status post mechanical ventilation Transaminitis History of stroke History of diabetes mellitus Hyperlipidemia History of coronary artery disease status post LAD in September 2022 cup By acute thrombosis requiring angioplasty and thrombectomy. Plan: Exam is limited since on low dose IV Propofol and on Dialuadid. But has brainstem reflex, opening eyes and moving head to side. Cardiology, nephrology are consulted. Will defer the rest of medical management to primary and other specialist. Patient overall condition is very guarded. The plan was discussed with the his nurse. Will follow-up sporadically. Time with Patient: Less than 30
[2023-12-16 16:23] LABS: Glucose,Whole Blood 296 mg/dL (70-110)
--- NOTE | 2023-12-16 17:34 | P.PN ---
Subjective Progress Note Date: 12/16/23 Principal diagnosis: Reason for follow-up is fever possible pneumonia Patient is a 83-year-old male past medical history significant for diabetes mellitus hypertension VT CVA TIA presenting to the hospital with chest pain shortness of breath also noticed to be febrile prompting this consultation. Patient did have worsening of his respiratory status and also cardiac arrest with the patient has been intubated and transferred to the ICU On today's evaluation that is 12/16/2023, the patient remains to be intubated on the vent FiO2 at 35% patient has been running a low-grade fever 100.4 to 100.6 F, patient still requiring pressor support to maintain his blood pressure sedation has been slowly weaned off and the patient is opening his eyes to the name calling. Patient white count is 13.2 creatinine is 2.93 liver enzymes are normal sputum and blood culture for negative Objective - Vital Signs Vital signs: Vital Signs Temp 100.4 F H 12/16/23 08:00 Pulse 96 12/16/23 11:15 Resp 20 12/16/23 12:00 BP 101/57 12/16/23 11:15 Pulse Ox 95 12/16/23 12:00 FiO2 35 12/16/23 12:00 Intake & Output 12/15/23 12/16/23 12/16/23 18:59 06:59 18:59 Intake Total 1082.170 718.667 226.837 Output Total 1385 640 260 Balance -302.830 78.667 -33.163 Weight 86.1 kg Intake: IV 190 320 150 .9 NS 90 120 50 Piperacillin-Tazobactam 3 100 100 100 .375 gm In Sodium Chloride 0.9% 100 ml @ 25 mls/hr IVPB Q12HR [facility] Rx #:[id number] Potassium Chloride 10 meq 100 In Water For Injection 1 100ml.bag @ 100 mls/hr IVPB Q1H [facility] Rx#: [id number] Intake, IV Titration 375.170 38.667 16.837 Amount Amiodarone 450 mg In 240.283 Dextrose 5% in Water 250 ml @ 0.5 MG/MIN 16.667 mls/hr IV .Q15H [facility] Rx#: [id number] Norepinephrine 32 mg In 47.886 0.082 16.837 Sodium Chloride 0.9% 218 ml @ 0.03 MCG/KG/MIN 1. 223 mls/hr IV .Q24H [facility] Rx#:[id number] propofoL 1,000 mg In 87.001 38.585 Empty Bag 1 bag @ 15 MCG/ KG/MIN 7.83 mls/hr IV . [id number] [facility] Rx#:[id number] Tube Feeding 117 360 60 Hemodialysis 400 Output: Urine 485 640 260 Hemodialysis 900 Other: Voiding Method Indwelling Catheter Indwelling Catheter Indwelling Catheter ABP, PAP, CO, CI - Last Documented Arterial Blood Pressure 107/52 - Exam GENERAL DESCRIPTION: An elderly male intubated on the vent RESPIRATORY SYSTEM: Unlabored breathing , decreased breath sounds at bases HEART: S1 S2 regular rate and rhythm , ABDOMEN: Soft , no tenderness EXTREMITIES: No edema feet - Labs CBC & Chem 7: 12/16/23 04:19 12/16/23 04:19 Labs: Abnormal Lab Results - Last 24 Hours (Table) 12/15/23 12/15/23 12/16/23 Range/Units 17:12 23:33 04:19 WBC 13.2 H (3.8-10.6) k/uL RBC 3.48 L (4.30-5.90) m/uL Hgb 9.8 L (13.0-17.5) gm/dL Hct 30.4 L (39.0-53.0) % RDW 15.8 H (11.5-15.5) % Neutrophils # 10.5 H (1.3-7.7) k/uL ABG pH (7.35-7.45) ABG pCO2 (35-45) mmHg ABG pO2 (83-108) mmHg ABG Total CO2 (19-24) mmol/L Sodium (137-145) mmol/L BUN (9-20) mg/dL Creatinine (0.66-1.25) mg/dL Glucose (74-99) mg/dL POC Glucose (mg/dL) 259 H 266 H (70-110) mg/dL Calcium (8.4-10.2) mg/dL Alkaline Phosphatase (38-126) U/L Total Protein (6.3-8.2) g/dL Albumin (3.5-5.0) g/dL 12/16/23 12/16/23 12/16/23 Range/Units 04:19 05:33 06:06 WBC (3.8-10.6) k/uL RBC (4.30-5.90) m/uL Hgb (13.0-17.5) gm/dL Hct (39.0-53.0) % RDW (11.5-15.5) % Neutrophils # (1.3-7.7) k/uL ABG pH 7.46 H (7.35-7.45) ABG pCO2 34 L (35-45) mmHg ABG pO2 72 L (83-108) mmHg ABG Total CO2 26 H (19-24) mmol/L Sodium 132 L (137-145) mmol/L BUN 57 H (9-20) mg/dL Creatinine 2.93 H (0.66-1.25) mg/dL Glucose 277 H (74-99) mg/dL POC Glucose (mg/dL) 315 H (70-110) mg/dL Calcium 7.3 L (8.4-10.2) mg/dL Alkaline Phosphatase 331 H (38-126) U/L Total Protein 5.2 L (6.3-8.2) g/dL Albumin 2.5 L (3.5-5.0) g/dL 12/16/23 Range/Units 12:12 WBC (3.8-10.6) k/uL RBC (4.30-5.90) m/uL Hgb (13.0-17.5) gm/dL Hct (39.0-53.0) % RDW (11.5-15.5) % Neutrophils # (1.3-7.7) k/uL ABG pH (7.35-7.45) ABG pCO2 (35-45) mmHg ABG pO2 (83-108) mmHg ABG Total CO2 (19-24) mmol/L Sodium (137-145) mmol/L BUN (9-20) mg/dL Creatinine (0.66-1.25) mg/dL Glucose (74-99) mg/dL POC Glucose (mg/dL) 319 H (70-110) mg/dL Calcium (8.4-10.2) mg/dL Alkaline Phosphatase (38-126) U/L Total Protein (6.3-8.2) g/dL Albumin (3.5-5.0) g/dL Microbiology - Last 24 Hours (Table) 12/13/23 16:35 Blood Culture - Preliminary Blood 12/12/23 22:00 Gram Stain - Final Sputum Sputum Culture - Final Assessment and Plan (1) Fever and chills Current Visit: Yes Status: Acute Code(s): R50.9 - FEVER, UNSPECIFIED SNOMED Code(s): 987881031 (2) Sepsis Current Visit: Yes Status: Acute Code(s): A41.9 - SEPSIS, UNSPECIFIED ORGANISM SNOMED Code(s): 08690265 (3) Aspiration pneumonia Current Visit: Yes Status: Acute Code(s): J69.0 - PNEUMONITIS DUE TO INHALATION OF FOOD AND VOMIT SNOMED Code(s): 195228783 Plan: 1patient presented hospital with chest pain noticed to have a fever on [place] and another fever this morning did have predominantly respiratory symptoms with a question of possible pneumonia versus intra-abdominal pathology, but we did have a negative UA no evidence of any cellulitis or joint swelling 2-patient did have significant change in his clinical condition did have a cardiac arrest and admission to the ICU and for possible aspiration, blood and sputum culture so far negative 3-patient is currently being treated with the Zosyn, did have a low-grade fever and mild elevated white count likely to be monitored closely Dictation was produced using [employer] dictation software. please excuse any grammatical, word or spelling errors. Time with Patient: Less than 30
[2023-12-16 23:52] LABS: Glucose,Whole Blood 160 mg/dL (70-110)
[2023-12-17 04:57] LABS: Anisocytosis Slight; Basophils # (A) 0.1 k/uL (0-0.2); Basophils % (A) 1 %; Eosinophils # (A) 0.3 k/uL (0-0.7); Eosinophils % (A) 2 %; HCT 31.3 % (39.0-53.0); HGB 9.9 gm/dL (13.0-17.5); Lymphocytes # (A) 1.2 k/uL (1.0-4.8); Lymphocytes % (A) 8 %; MCH 28.1 pg (25.0-35.0); MCHC 31.4 g/dL (31.0-37.0); MCV 89.3 fL (80.0-100.0); Mean Platelet Volume 9.1; Monocytes % (A) 7 %; Neutrophils # (A) 11.3 k/uL (1.3-7.7); Neutrophils % (A) 79 %; Platelet Count 274 k/uL (150-450); RBC 3.51 m/uL (4.30-5.90); RDW 16.3 % (11.5-15.5); WBC 14.3 k/uL (3.8-10.6)
[2023-12-17 06:04] LABS: Glucose,Whole Blood 247 mg/dL (70-110)
[2023-12-17] MEDS: INSULIN ASPART (NovoLOG) 100 UNIT/ML VIAL SQ SCH (06:04)
[2023-12-17] MEDS: INSULIN DETEMIR (LEVEMIR) 100 UNIT/ML SYR SQ SCH (06:04)
[2023-12-17 06:28] LABS: ABG Base Excess 0.4 mmol/L; ABG HCO3 25 mmol/L (21-25); ABG PCO2 37 mmHg (35-45); ABG PH 7.43 (7.35-7.45); ABG PO2 90 mmHg (83-108); ABG TCO2 26 mmol/L (19-24); Allen Test Performed? Yes
[2023-12-17 06:28] LABS: African American GFR (CKD) 23 (>60 ml/min/1.73 sqM); Anion Gap 13 mmol/L; Blood Urea Nitrogen 67 mg/dL (9-20); Calcium 7.5 mg/dL (8.4-10.2); Carbon Dioxide 23 mmol/L (22-30); Chloride 102 mmol/L (98-107); Glucose 200 mg/dL (74-99); Non-African American GFR(CKD) 20 (>60 ml/min/1.73 sqM); Potassium 3.7 mmol/L (3.5-5.1); Sodium 138 mmol/L (137-145)
--- NOTE | 2023-12-17 08:07 | XR ---
EXAMINATION TYPE: XR chest 1V portable DATE OF EXAM: 12/17/2023 COMPARISON: 12/16/2023 HISTORY: Shortness of breath TECHNIQUE: Single frontal view of the chest is obtained. FINDINGS: ET and NG tube stable. Diffuse bilateral airspace disease with pleural effusions. No pneum othorax. Heart is enlarged. Widening of the right AC joint are likely chronic correlate clinically. D egenerative change of the spine. IMPRESSION: Diffuse pleural parenchymal changes are similar correlate for pulmonary edema versus dif fuse pneumonia.
[2023-12-17] MEDS: POTASSIUM BICARBONATE/CIT AC 20 MEQ TABLET.EFF NG-TUBE SCH (09:16)
--- NOTE | 2023-12-17 09:47 | PN ---
PROGRESS NOTE SUBJECTIVE: This is a gentleman with ischemic cardiomyopathy, previous multivessel PCI. He is still on a ventilator, but apparently according to the nurse, he is following commands. EKG performed today revealed atrial fibrillation, controlled ventricular rate. He is on amiodarone 200 mg b.i.d. and a small dose of metoprolol tartrate. We will continue the same. We will try and wean off his Levophed. He is on 0.1, is down to 0.09 mcg/kg/minute. OBJECTIVE: CARDIAC: S1, S2 heard normally. Irregular rhythm noted. Short systolic murmur noted. LUNGS: Revealed ventilator-assisted breath sounds. ABDOMEN: Soft. LOWER EXTREMITIES: Revealed diminished pulses. CENTRAL NERVOUS SYSTEM: Assessment was not performed. Prognosis remains guarded. MMPERRIL / IJN: [id number] /
--- NOTE | 2023-12-17 10:38 | P.PN ---
Subjective Patient is seen in follow-up for acute kidney injury on chronic kidney disease. Started on hemodialysis December 14, 2023. Last dialysis was December 15, 2023. Intubated. On Levophed. Urine output stable. Receiving tube feeds. Vital signs are stable. On vasopressor support. General: Resting in bed. HEENT: Intubated. LUNGS: Scattered rhonchi. HEART: Regular rate and rhythm. ABDOMEN: No distention. EXTREMITITES: Trace edema. Objective - Vital Signs Vital signs: Vital Signs Temp 99.2 F 12/17/23 08:00 Pulse 83 12/17/23 08:48 Resp 22 12/17/23 08:30 BP 125/59 12/17/23 08:30 Pulse Ox 98 12/17/23 08:30 FiO2 35 12/17/23 08:36 Intake & Output 12/16/23 12/17/23 12/17/23 18:59 06:59 18:59 Intake Total 750.760 587.046 27.190 Output Total 590 585 165 Balance 160.760 2.046 -137.810 Weight 82.5 kg Intake: IV 210 46 3 .9 NS 110 46 3 Piperacillin-Tazobactam 3 100 .375 gm In Sodium Chloride 0.9% 100 ml @ 25 mls/hr IVPB Q12HR [facility] Rx #:[id number] Intake, IV Titration 50.760 44.046 24.190 Amount Norepinephrine 32 mg In 46.540 44.046 24.190 Sodium Chloride 0.9% 218 ml @ 0.03 MCG/KG/MIN 1. 223 mls/hr IV .Q24H [facility] Rx#:[id number] propofoL 1,000 mg In 4.22 0 Empty Bag 1 bag @ 15 MCG/ KG/MIN 7.83 mls/hr IV . [id number] [facility] Rx#:[id number] Tube Feeding 400 407 Other 90 90 Output: Urine 590 585 165 Other: Voiding Method Indwelling Catheter Indwelling Catheter # Bowel Movements 1 ABP, PAP, CO, CI - Last Documented Arterial Blood Pressure 121/44 - Labs CBC & Chem 7: 12/17/23 04:27 12/17/23 04:27 Labs: Abnormal Lab Results - Last 24 Hours (Table) 12/16/23 12/16/23 12/16/23 Range/Units 12:12 16:21 23:50 WBC (3.8-10.6) k/uL RBC (4.30-5.90) m/uL Hgb (13.0-17.5) gm/dL Hct (39.0-53.0) % RDW (11.5-15.5) % Neutrophils # (1.3-7.7) k/uL ABG Total CO2 (19-24) mmol/L BUN (9-20) mg/dL Creatinine (0.66-1.25) mg/dL Glucose (74-99) mg/dL POC Glucose (mg/dL) 319 H 296 H 160 H (70-110) mg/dL Calcium (8.4-10.2) mg/dL 12/17/23 12/17/23 12/17/23 Range/Units 04:27 04:27 06:02 WBC 14.3 H (3.8-10.6) k/uL RBC 3.51 L (4.30-5.90) m/uL Hgb 9.9 L (13.0-17.5) gm/dL Hct 31.3 L (39.0-53.0) % RDW 16.3 H (11.5-15.5) % Neutrophils # 11.3 H (1.3-7.7) k/uL ABG Total CO2 (19-24) mmol/L BUN 67 H (9-20) mg/dL Creatinine 2.83 H (0.66-1.25) mg/dL Glucose 200 H (74-99) mg/dL POC Glucose (mg/dL) 247 H (70-110) mg/dL Calcium 7.5 L (8.4-10.2) mg/dL 12/17/23 Range/Units 06:24 WBC (3.8-10.6) k/uL RBC (4.30-5.90) m/uL Hgb (13.0-17.5) gm/dL Hct (39.0-53.0) % RDW (11.5-15.5) % Neutrophils # (1.3-7.7) k/uL ABG Total CO2 26 H (19-24) mmol/L BUN (9-20) mg/dL Creatinine (0.66-1.25) mg/dL Glucose (74-99) mg/dL POC Glucose (mg/dL) (70-110) mg/dL Calcium (8.4-10.2) mg/dL Microbiology - Last 24 Hours (Table) 12/13/23 16:35 Blood Culture - Preliminary Blood Assessment and Plan Plan: Assessment: 1. Acute kidney injury secondary to hemodynamic ATN, cardiorenal syndrome and cardiac arrest. Also component of contrast-induced acute kidney injury. Creatinine up to 5.8 dated December 14, 2023. Was oliguric, now nonoliguric. UA benign. No hydronephrosis noted on CAT scan. Creatinine stable at 2.83 today. 2. 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 3. Coronary artery disease status postcardiac catheterization with stent placement on December 10, 2023. Not a candidate for CABG. 4. Metabolic acidosis secondary to acute kidney injury. Better. On oral bicarb. 5. Hyponatremia. Component of poor solute intake. Hypervolemic. Better. 6. Diabetes mellitus. 7. Possible pneumonia on antibiotics. ID following. 8. Volume overload. Improved with ultrafiltration and better urine output. 9. Status postcardiac arrest - V-fib and PEA. Plan: Continue to hold off on hemodialysis. Last treatment December 15, 2023. Add IV Lasix 60 mg once daily. Potassium being replaced. Wean FiO2 and vasopressors. Phosphorus level 5.5 dated December 15, 2023. Urine output improved. Monitor for renal recovery. Prognosis guarded. Continue to assess daily for need for renal replacement therapy.
[2023-12-17 11:11] LABS: ABG Base Excess 3.5 mmol/L; ABG HCO3 27 mmol/L (21-25); ABG PCO2 39 mmHg (35-45); ABG PH 7.45 (7.35-7.45); ABG PO2 109 mmHg (83-108); ABG TCO2 29 mmol/L (19-24)
[2023-12-17 11:13] LABS: ABG Oxygen Saturation 97.8 % (94-97)
[2023-12-17] MEDS: FUROSEMIDE 10 MG/ML 10 ML VIAL IV SCH (11:36)
[2023-12-17 11:50] LABS: Glucose,Whole Blood 267 mg/dL (70-110)
--- NOTE | 2023-12-17 13:50 | P.PN ---
Subjective Progress Note Date: 12/17/23 Hospital Course: 83-year-old male with PMH of CAD, history of CVA, diabetes mellitus, chronic k idney disease, hypertension, BPH, hypothyroidism presents the ED for chest pain. Chest pain woke him up at 3AM. Chest pain mid sternal, described as rumbling, radiating to both arms. Associated symptoms include diaphoresis. Chest pain was relieved by sublingual nitroglycerin. Of note, also reports fevers as high as 101.3F over the past 3 days. No cough, rash, urinary or bowel symptoms. In the ED, he underwent extensive evaluation. BP 98/61, HR 84, RR 20, T 102.6F, 100% on 1 LNC. CBC, coag panel and CMP was done significant for lymphocyte count of 0.5, sodium 1:30, bicarb 18, BUN 34, creatinine 1.8, glucose 184, calcium 8.2, alk phos 167. Magnesium 2.2. Troponin 0.028. Flu, RSV, COVID-19 negative. EKG showed sinus rhythm with left bundle branch block. Chest x-ray showed small right pleural effusion and pulmonary vascular congestion. Patient is admitted for chest pain, rule out acute coronary syndrome and cardiology consultation. Workup from previous admission was reviewed. Cardiac cath 09/04/23 showed 70-80% distal left main, 100% ostial LAD with collateral, 80-90% ostial PDA, 80% proximal OM1. He has been evaluated by CT surgery in the past deemed to be poor surgical judy date for revascularization. Echocardiogram 09/01/23 showed EF 35-40% with anteroseptal, anterior wall hypokinesia, mild aortic stenosis. His troponins uptrended and he was started on a heparin drip. Cardiology consulted, he underwent cardiac catheterization on 12/08 but was cancelled due to poor vascular access. He underwent repeat cardiac cath on 12/09 and PCI of left main and ramus. His renal function continued to worsen after cardiac cath. LISSETH LORENZO was called on 12/11, noted to be in asystole and V-Fib requiring defibrillation, epinephrine, calcium chloride and sodium bicarb. ROSC was achiev ed and he was transferred to the ICU. He developed asystole again in the ICU requiring epinephrine and sodium bicarb. ROSC was once again achieved. Nephrology consulted, HD catheter placed and HD started on 12/13. Neurology consulted for anoxic encephalopathy, Brain CT (negative for acute pathology) and EEG (severe encephaopathy) ordered. 12/14 Patient was seen and examined. Intubated. Currently on Levophed at 0.13 mcg/kg/min. Maintained on Zosyn 3.375 IV TID (D2) for treatment of aspiration P NA. CBC shows WBC 13.7 Hg 9.8 Hct 29.7. ABG pH 7.45, pCO2 35. BMP Na 130, Cl 95, bicarb 31, BUN 77, Cr 4.5, glu 264, Ca 7.6. Phos 5.5. Mag 2.4. CXR done this morning shows diffiuse changes differentials including pulmonary edema/ARDS or PNA. 12/15 Patient was seen and examined. Intubated. Off Propofol. Opening eyes but not following direction. No plans for extubation per discussion with Dr. eBy today. Discussed with Dr. Meeks, plans for Lasix 40 mg IV today. Currently on Levophed 0.06 mcg/kg/min. CXR shows signs of pulmonary edema. Maintained on Zosyn 3.375 IV TID (D3) for treatment of aspiration PNA. CBC WBC 13.2 Hg 9.8 Hct 30.4. ABG pH 7.46 pCO2 34. BMP Na 132, BUN 57, Cr 2.93, glu 277, alb 2.5. BG ranging in the 2-300s, plans to add Novolog 3 units TID along with MISS and Levemir. Subjective: Patient seen and examined at bedside. No acute events overnight. Per nursing, still difficult to get him off of the Levophed. Does follow some commands when off of propofol. Has good urine output. Wilkins catheter in place. Pertinent positives and negatives as discussed above, a complete review of systems was performed and all other systems are negative. Vitals Signs Reviewed. General: Intubated sedated Derm: Warm, dry Head: Atraumatic, normocephalic, symmetric Eyes: Equal and reactive pupils Mouth: No lip lesion, mucus membranes moist Cardiovascular: S1S2 reg, no murmur Lungs: Bilateral rhonchi, no accessory muscle use, supplemental oxygen Abdominal: Soft, nontender to palpation, no guarding, no appreciable organomegaly Ext: No gross muscle atrophy, no edema, no contractures Neuro: Sedated Psych: Unable to assess Data Reviewed Today: Pertinent Labs: WBC 14.3, hemoglobin 9.9, potassium 3.7, creatinine 2.83, blood sugars range between 200-2 67 Imaging: Chest x-ray independently interpreted, shows bilateral interstitial opacities from yesterday Assessment and Plan: Status postcardiac arrest x 2 Acute NSTEMI, severe coronary artery disease, status post PCI Cardiogenic shock Acute hypoxic respiratory failure Sepsis secondary to aspiration pneumonia Acute systolic CHF exacerbation Acute kidney injury, on hemodialysis Acute encephalopathy, possibly hypoxic/anoxic Type 2 diabetes Continue to wean Levophed Continue to wean sedation, assess for possible extubation Cardiology following, patient on amiodarone 200 mg oral twice daily, metoprolol 12.5 3 times daily, Ranexa 500 twice daily, aspirin 81, Plavix 75, atorvastatin 80 Nephrology note reviewed, hold dialysis, on Lasix 60 IV daily, midodrine 10 3 times daily, sodium bicarb 650 twice daily Pulmonology following, patient on DuoNebs 4 times daily as needed, Pulmicort twice daily Patient is on IV Zosyn 3.375 g every 12 hours Neurology also following Levemir increased to 30 units daily, 6 units 3 times daily, sliding scale insulin, monitor for hypoglycemia DVT ppx: Subcu heparin Code status: Full code Anticipated discharge place: Pending clinical course Anticipated discharge time: Pending clinical course Objective - Vital Signs Vital signs: Vital Signs Temp 99.2 F 12/17/23 08:00 Pulse 101 H 12/17/23 13:00 Resp 24 12/17/23 13:00 BP 119/62 12/17/23 13:00 Pulse Ox 92 L 12/17/23 13:00 FiO2 35 12/17/23 08:36 Intake & Output 12/16/23 12/17/23 12/17/23 18:59 06:59 18:59 Intake Total 750.760 587.046 132.355 Output Total 590 585 552 Balance 160.760 2.046 -419.645 Weight 82.5 kg 82.5 kg Intake: IV 210 46 18 .9 NS 110 46 18 Piperacillin-Tazobactam 3 100 .375 gm In Sodium Chloride 0.9% 100 ml @ 25 mls/hr IVPB Q12HR [facility] Rx #:[id number] Intake, IV Titration 50.760 44.046 77.355 Amount Norepinephrine 32 mg In 46.540 44.046 37.683 Sodium Chloride 0.9% 218 ml @ 0.03 MCG/KG/MIN 1. 223 mls/hr IV .Q24H [facility] Rx#:[id number] propofoL 1,000 mg In 4.22 0 39.672 Empty Bag 1 bag @ 15 MCG/ KG/MIN 7.83 mls/hr IV . [id number] [facility] Rx#:[id number] Tube Feeding 400 407 37 Other 90 90 Output: Urine 590 585 552 Other: Voiding Method Indwelling Catheter Indwelling Catheter Indwelling Catheter # Bowel Movements 1 ABP, PAP, CO, CI - Last Documented Arterial Blood Pressure 121/51 - Labs CBC & Chem 7: 12/17/23 04:27 12/17/23 04:27 Labs: Abnormal Lab Results - Last 24 Hours (Table) 12/16/23 12/16/23 12/17/23 Range/Units 16:21 23:50 04:27 WBC 14.3 H (3.8-10.6) k/uL RBC 3.51 L (4.30-5.90) m/uL Hgb 9.9 L (13.0-17.5) gm/dL Hct 31.3 L (39.0-53.0) % RDW 16.3 H (11.5-15.5) % Neutrophils # 11.3 H (1.3-7.7) k/uL ABG pO2 (83-108) mmHg ABG HCO3 (21-25) mmol/L ABG Total CO2 (19-24) mmol/L ABG O2 Saturation (94-97) % BUN (9-20) mg/dL Creatinine (0.66-1.25) mg/dL Glucose (74-99) mg/dL POC Glucose (mg/dL) 296 H 160 H (70-110) mg/dL Calcium (8.4-10.2) mg/dL 12/17/23 12/17/23 12/17/23 Range/Units 04:27 06:02 06:24 WBC (3.8-10.6) k/uL RBC (4.30-5.90) m/uL Hgb (13.0-17.5) gm/dL Hct (39.0-53.0) % RDW (11.5-15.5) % Neutrophils # (1.3-7.7) k/uL ABG pO2 (83-108) mmHg ABG HCO3 (21-25) mmol/L ABG Total CO2 26 H (19-24) mmol/L ABG O2 Saturation (94-97) % BUN 67 H (9-20) mg/dL Creatinine 2.83 H (0.66-1.25) mg/dL Glucose 200 H (74-99) mg/dL POC Glucose (mg/dL) 247 H (70-110) mg/dL Calcium 7.5 L (8.4-10.2) mg/dL 12/17/23 12/17/23 Range/Units 11:09 11:47 WBC (3.8-10.6) k/uL RBC (4.30-5.90) m/uL Hgb (13.0-17.5) gm/dL Hct (39.0-53.0) % RDW (11.5-15.5) % Neutrophils # (1.3-7.7) k/uL ABG pO2 109 H (83-108) mmHg ABG HCO3 27 H (21-25) mmol/L ABG Total CO2 29 H (19-24) mmol/L ABG O2 Saturation 97.8 H (94-97) % BUN (9-20) mg/dL Creatinine (0.66-1.25) mg/dL Glucose (74-99) mg/dL POC Glucose (mg/dL) 267 H (70-110) mg/dL Calcium (8.4-10.2) mg/dL Microbiology - Last 24 Hours (Table) 12/13/23 16:35 Blood Culture - Preliminary Blood
--- NOTE | 2023-12-17 14:14 | P.PN ---
Subjective Progress Note Date: 12/17/23 Principal diagnosis: Cardiac arrest x 2 83-year-old male patient who sustained a cardiac yesterday at 2033 and following that the patient was moved to the intensive care unit. The patient was found in asystole. He received CPR based on ACLS protocol. Initial downtime was around 25 to 30 minutes and the patient received 4 rounds of epinephrine and CPR. During the process the patient was also found to be in V-fib and was defibrillated. He was brought into the intensive care unit where he had another code at 2106 and the second code was brief. He was placed on pressors. He is already intubated on mechanical ventilator.. This morning, the patient is on propofol which is running at 50 mcg/kg/min. He is hypotensive and is on norepinephrine 0.18 micrograms per kilogram per minute. He was a difficult IV access. Unable to insert an arterial line. The triple-lumen catheter was inserted in the right femoral vein for hemodynamic support and pressors. At this point in time, he is on assist-control mode at a rate of 20, tidal volume of 400, FiO2 of 70% with a PEEP of 5. The chest x-ray is showing adequate positioning of the ET tube. Orotracheal tube was initially in the right mainstem that was pulled out. No change in the bilateral opacities seen. The patient also has a moderate-sized right-sided pleural effusion along with pulm vascular congestion. Blood work from today shows a WBC count 9.9 with a hemoglobin 10.9 and a platelet count of 147. pH is 7.43 with a pCO2 of 34 and a pO2 of 84. Sodium levels at 127 and potassium levels at 4.3 with a serum bicarb of 17 and the BUN is at 80 with a creatinine of 4.2 as the patient has an acute on top of chronic kidney injury. This could have been also related to contrast as the patient's creatinine was gradually going up following his cardiac procedures. Troponin currently is at 3.07 and it is uptrending again post cardiac arrest. Cardiology was informed of those changes. No plans for any further intervention. In terms of his cardiac history, the patient is followed by Dr. Nelson who presents with symptoms of chest discomfort. He has a known history of CAD underwent stenting of the LAD in September [address] Remy and subsequently was readmitted about a week after with acute thrombosis and underwent angioplasty and thrombectomy. He underwent repeat cardiac catheterization in August and was found to have totally occluded LAD with distal left main disease but was felt to be a poor candidate for any surgical intervention. He presents with symptoms of chest discomfort and dyspnea at rest yesterday He usually has exertional angina pectoris with dyspnea on exertion. His activity is limited. He has evidence of cardiomyopathy with segmental wall motion abnormality consistent with his initial presentation with myocardial infarction.Patient is status attempted catheterization with Dr. Nelson on 12/09/2023. Dr. Nelson had difficulty obtaining access and his cardiac catheteriz ation was canceled. He underwent repeat cardiac catheterization with Dr. Remy with PCI of left main and ramus. Patient was hypotensive during the procedure. Patient was reevaluated today on 12/14/2023, patient remains in the ICU, intubated and mechanically ventilated. Patient was initially admitted on 12/05 with unstable angina, chest pain, severe coronary artery disease, and he was never felt to be a candidate for any surgical intervention. He had chronically occluded ostial LAD and ischemic cardiomyopathy. In addition he had chronic kidney disease and diabetes. As noted above the patient had cardiac arrest x 2 remains intubated and mechanically ventilated, he is on assist-control rate of 20 tidal volume 400 FiO2 50% PEEP of 5 ABG showed a pO2 of 88 pCO2 35 pH of 7.41. Patient may have developed anoxic brain injury, hence neurology will be consulted. Patient required a right brachial arterial line placement today, and this was done uneventfully. Patient will be started today on tube feeding. Looking back at the patient's history, patient clearly has a significant cardiac history, on 12/11, patient had V-fib cardiac arrest x 2 and he had CPR at 1 time it was 20 minutes the second time was 8 minutes of CPR. Obviously we are quite concerned about the possibility of anoxic brain injury. Chest x-ray is showing evidence of pulmonary edema, underlying pneumonia is not entirely ruled out but felt to be less likely patient is requiring norepinephrine at 0.16 mcg/kg/min also requiring propofol at 40 mcg/kg/min, FiO2 was decreased down to 45% today. Renal functioning is continuing to worse, patient is not making much urine, and spite of giving him Lasix and Bumex renal replacement therapy will be initiated today. Dialysis catheter was placed this morning. WBC count today is 10.3 hemoglobin is 9.9 basic metabolic profile is normal except for sodium of 129, BUN is up to 88 creatinine 5.81 blood sugar is 272 Patient was reevaluated today on 12/15/2023, remains in the ICU, intubated and mechanically ventilated he is on assist-control rate of 20 tidal volume 400 FiO2 35% and PEEP of 5 ABG showed a pO2 of 77 pCO2 35 pH of 7.45, patient is undergoing hemodialysis this morning. Remains on amiodarone drip, propofol at 25 mcg/kg/min is also on norepinephrine drip at 0.14 mcg/kg/min remains empirically on Zosyn. Chest x-ray is consistent with diffuse pleuroparenchymal changes/pulmonary edema picture, possible ARDS but I believe that pulmonary edema is really cardiogenic in nature. Sibling has history of ischemic cardiomyopathy. CBC showed WBC of 13.7 hemoglobin 9.8. Basic metabolic profile is normal sodium is 130, BUN is 77 creatinine 4.50, again the patient will have hemodialysis today neurologically, the patient is not responding to any stimuli, being followed by neurology, and I honestly believe the patient has most likely severe anoxic brain injury. Off sedation yesterday, patient was opening his eyes only but no other responses noted Evaluated today on 12/16/2023, remains in the ICU, intubated and mechanically ventilated, on assist-control rate of 20 tidal volume 400 FiO2 35% PEEP of 5 ABG showed a pO2 of 72 pCO2 34 pH of 7.46. Patient is opening eyes only but no responses whatsoever except opening eyes. And no purposeful movement is noted. He is off sedation for the last 24 hours, still requiring norepinephrine at 0.09 mcg/kg/min remains on Zosyn empirically patient has a decent urine output of 50 to 100 cc/h chest x-ray continues to show evidence of pulmonary edema or possible aspiration pneumonia. Patient is being treated for both. I suspect clinically that this is more of pulmonary edema secondary to severe LV dysfun ction. At any rate we will continue to keep the patient off sedation as long as tolerated to fully assess mental status, presently although we could get is patient opening his eyes only. WBC count is 13.2 hemoglobin 9.8. Basic metabolic profile is normal BUN is 57 creatinine 2.93, patient has been on hemodialysis since 12/13, his last dialysis was yesterday. Urine output is picking up slightly. Patient was reevaluated today on 12/17/2023, remains intubated but not sedated, patient is off propofol, patient is awake, follows simple instructions like squeezing hands, wiggling toes, and closing and opening eyes. Seems to be appropriate, hence I plan to give the patient today a trial of pressure support and CPAP. His ABG showed a pO2 of 90 pCO2 37 pH of 7.43, patient has improvement in his urine output, his last hemodialysis was on 12/14, and his urine output seems to be stable, continues to receive tube feeds, still requiring norepinephrine at 0.1 mcg/kg/min remains on Zosyn and remains intermittently on diuretics. Chest x-ray is showing diffuse pleural-parenchymal changes consistent with pulmonary edema and/or pneumonia. Patient is receiving treatment for both the last chest x-ray is showing improvement sputum cultures have been nondiagnostic, blood cultures have been negative. WBC count today is 14.3 hemoglobin is 9.9, basic metabolic profile is normal BUN is 67 creatinine 2.83 steadily improving over the last few days. Objective - Vital Signs Vital signs: Vital Signs Temp 99.2 F 12/17/23 08:00 Pulse 101 H 12/17/23 13:00 Resp 24 12/17/23 13:00 BP 119/62 12/17/23 13:00 Pulse Ox 92 L 12/17/23 13:00 FiO2 35 12/17/23 08:36 Intake & Output 12/16/23 12/17/23 12/17/23 18:59 06:59 18:59 Intake Total 750.760 587.046 132.355 Output Total 590 585 552 Balance 160.760 2.046 -419.645 Weight 82.5 kg 82.5 kg Intake: IV 210 46 18 .9 NS 110 46 18 Piperacillin-Tazobactam 3 100 .375 gm In Sodium Chloride 0.9% 100 ml @ 25 mls/hr IVPB Q12HR [facility] Rx #:[id number] Intake, IV Titration 50.760 44.046 77.355 Amount Norepinephrine 32 mg In 46.540 44.046 37.683 Sodium Chloride 0.9% 218 ml @ 0.03 MCG/KG/MIN 1. 223 mls/hr IV .Q24H [facility] Rx#:[id number] propofoL 1,000 mg In 4.22 0 39.672 Empty Bag 1 bag @ 15 MCG/ KG/MIN 7.83 mls/hr IV . [id number] [facility] Rx#:[id number] Tube Feeding 400 407 37 Other 90 90 Output: Urine 590 585 552 Other: Voiding Method Indwelling Catheter Indwelling Catheter Indwelling Catheter # Bowel Movements 1 ABP, PAP, CO, CI - Last Documented Arterial Blood Pressure 121/51 - Exam General: Revealed 83-year-old white male intubated mechanically ventilated, follows simple instructions, off propofol. Head: Atraumatic, normocephalic Skin: Skin is warm and dry and no rashes or lesions are noted. Eye: Pupils are equal, round and reactive to light, extra-ocular movements are intact; there is normal conjunctiva bilaterally. Ears, nose, mouth and throat: There are moist mucous membranes and no oral lesions. Neck: The neck is supple, there is no tenderness or JVD. Endotracheal tube and orogastric tube are intact. Cardiovascular: Distant S1-S2, no S3 gallop. Respiratory: Fine crackles at the bases noted bilaterally. Gastrointestinal: Soft, non-distended, non-tender abdomen without masses or organomegaly noted. There is no rebound or guarding present. Bowel sounds are unremarkable. Back: There is no tenderness to palpation in the midline. There is no obvious deformity. Musculoskeletal: Normal ROM, no tenderness, 1+ bipedal edema noted.. There is no calf tenderness Neurological: Patient opens eyes and follows instructions, seems to be appropriate. Psychiatric: Normal mood, flat affect, follows simple instructions. Comprehensive instructions/questions - Labs CBC & Chem 7: 12/17/23 04:27 12/17/23 04:27 Labs: Abnormal Lab Results - Last 24 Hours (Table) 12/16/23 12/16/23 12/17/23 Range/Units 16:21 23:50 04:27 WBC 14.3 H (3.8-10.6) k/uL RBC 3.51 L (4.30-5.90) m/uL Hgb 9.9 L (13.0-17.5) gm/dL Hct 31.3 L (39.0-53.0) % RDW 16.3 H (11.5-15.5) % Neutrophils # 11.3 H (1.3-7.7) k/uL ABG pO2 (83-108) mmHg ABG HCO3 (21-25) mmol/L ABG Total CO2 (19-24) mmol/L ABG O2 Saturation (94-97) % BUN (9-20) mg/dL Creatinine (0.66-1.25) mg/dL Glucose (74-99) mg/dL POC Glucose (mg/dL) 296 H 160 H (70-110) mg/dL Calcium (8.4-10.2) mg/dL 12/17/23 12/17/23 12/17/23 Range/Units 04:27 06:02 06:24 WBC (3.8-10.6) k/uL RBC (4.30-5.90) m/uL Hgb (13.0-17.5) gm/dL Hct (39.0-53.0) % RDW (11.5-15.5) % Neutrophils # (1.3-7.7) k/uL ABG pO2 (83-108) mmHg ABG HCO3 (21-25) mmol/L ABG Total CO2 26 H (19-24) mmol/L ABG O2 Saturation (94-97) % BUN 67 H (9-20) mg/dL Creatinine 2.83 H (0.66-1.25) mg/dL Glucose 200 H (74-99) mg/dL POC Glucose (mg/dL) 247 H (70-110) mg/dL Calcium 7.5 L (8.4-10.2) mg/dL 12/17/23 12/17/23 Range/Units 11:09 11:47 WBC (3.8-10.6) k/uL RBC (4.30-5.90) m/uL Hgb (13.0-17.5) gm/dL Hct (39.0-53.0) % RDW (11.5-15.5) % Neutrophils # (1.3-7.7) k/uL ABG pO2 109 H (83-108) mmHg ABG HCO3 27 H (21-25) mmol/L ABG Total CO2 29 H (19-24) mmol/L ABG O2 Saturation 97.8 H (94-97) % BUN (9-20) mg/dL Creatinine (0.66-1.25) mg/dL Glucose (74-99) mg/dL POC Glucose (mg/dL) 267 H (70-110) mg/dL Calcium (8.4-10.2) mg/dL Microbiology - Last 24 Hours (Table) 12/13/23 16:35 Blood Culture - Preliminary Blood Assessment and Plan Assessment: Impression: Cardiac arrest x 2 Severe coronary artery disease and acute non-ST elevation myocardial infarction Acute hypoxic respiratory failure secondary to above Cardiogenic shock Acute systolic congestive heart failure Anoxic encephalopathy Severe ischemic cardiomyopathy and LV dysfunction with ejection fraction of 35 to 40% History of CVA History of medical debility and multiple comorbidities Type 2 diabetes Dyslipidemia Acute kidney injury , on hemodialysis History of underlying coronary artery disease with previous stent of LAD September 22, 2001 3, complicated by acute thrombosis requiring angioplasty and thrombectomy repeat cardiac catheterization 09/12 showed totally occluded LAD with distal left main disease felt to be poor candidate for surgical intervention Commendation: Continue ventilatory support, however I will go ahead and give the patient a trial of pressure support and CPAP today, and if tolerated may proceed to extubating the patient either to nasal cannula or to BiPAP. Continue hemodynamic support continue to titrate norepinephrine accordingly Keep patient off sedation for today. Continue aspirin and Plavix Continue nutritional support/enteral feeding, unless the patient is extubated. Hemodialysis may be placed on hold, that his decision to be made by nephrology Continue GI and DVT prophylaxis Continue antibiotics empirically although sputum cultures have been negative Remittent gentle diuresis Continue bronchodilators and updrafts Continue statins Condition is critical Critical care time is over 30 minutes Time with Patient: Greater than 30
--- NOTE | 2023-12-17 15:27 | P.PN ---
Subjective Progress Note Date: 12/17/23 Principal diagnosis: Reason for follow-up is fever possible pneumonia Patient is a 83-year-old male past medical history significant for diabetes mellitus hypertension [place] CVA TIA presenting to the hospital with chest pain shortness of breath also noticed to be febrile prompting this consultation. Patient did have worsening of his respiratory status and also cardiac arrest with the patient has been intubated and transferred to the ICU On today's evaluation that is 12/17/2023, Patient is afebrile today, patient has been extubated and is breathing comfortably on 2 L nasal cannula oxygen patient slightly lethargic not a very good historian no other changes reported by the nursing staff. Patient white count 14.3, creatinine is 2.83 blood and sputum culture negative Objective - Vital Signs Vital signs: Vital Signs Temp 99.2 F 12/17/23 08:00 Pulse 106 H 12/17/23 14:00 Resp 23 12/17/23 14:00 BP 115/65 12/17/23 14:00 Pulse Ox 95 12/17/23 14:00 FiO2 35 12/17/23 08:36 Intake & Output 12/16/23 12/17/23 12/17/23 18:59 06:59 18:59 Intake Total 750.760 587.046 135.355 Output Total 590 585 702 Balance 160.760 2.046 -566.645 Weight 82.5 kg 82.5 kg Intake: IV 210 46 21 .9 NS 110 46 21 Piperacillin-Tazobactam 3 100 .375 gm In Sodium Chloride 0.9% 100 ml @ 25 mls/hr IVPB Q12HR [facility] Rx #:[id number] Intake, IV Titration 50.760 44.046 77.355 Amount Norepinephrine 32 mg In 46.540 44.046 37.683 Sodium Chloride 0.9% 218 ml @ 0.03 MCG/KG/MIN 1. 223 mls/hr IV .Q24H [facility] Rx#:[id number] propofoL 1,000 mg In 4.22 0 39.672 Empty Bag 1 bag @ 15 MCG/ KG/MIN 7.83 mls/hr IV . [id number] [facility] Rx#:[id number] Tube Feeding 400 407 37 Other 90 90 Output: Urine 590 585 702 Other: Voiding Method Indwelling Catheter Indwelling Catheter Indwelling Catheter # Bowel Movements 1 ABP, PAP, CO, CI - Last Documented Arterial Blood Pressure 126/54 - Exam GENERAL DESCRIPTION: An elderly male intubated on the vent RESPIRATORY SYSTEM: Unlabored breathing , decreased breath sounds at bases HEART: S1 S2 regular rate and rhythm , ABDOMEN: Soft , no tenderness EXTREMITIES: No edema feet - Labs CBC & Chem 7: 12/17/23 04:27 12/17/23 04:27 Labs: Abnormal Lab Results - Last 24 Hours (Table) 12/16/23 12/16/23 12/17/23 Range/Units 16:21 23:50 04:27 WBC 14.3 H (3.8-10.6) k/uL RBC 3.51 L (4.30-5.90) m/uL Hgb 9.9 L (13.0-17.5) gm/dL Hct 31.3 L (39.0-53.0) % RDW 16.3 H (11.5-15.5) % Neutrophils # 11.3 H (1.3-7.7) k/uL ABG pO2 (83-108) mmHg ABG HCO3 (21-25) mmol/L ABG Total CO2 (19-24) mmol/L ABG O2 Saturation (94-97) % BUN (9-20) mg/dL Creatinine (0.66-1.25) mg/dL Glucose (74-99) mg/dL POC Glucose (mg/dL) 296 H 160 H (70-110) mg/dL Calcium (8.4-10.2) mg/dL 12/17/23 12/17/23 12/17/23 Range/Units 04:27 06:02 06:24 WBC (3.8-10.6) k/uL RBC (4.30-5.90) m/uL Hgb (13.0-17.5) gm/dL Hct (39.0-53.0) % RDW (11.5-15.5) % Neutrophils # (1.3-7.7) k/uL ABG pO2 (83-108) mmHg ABG HCO3 (21-25) mmol/L ABG Total CO2 26 H (19-24) mmol/L ABG O2 Saturation (94-97) % BUN 67 H (9-20) mg/dL Creatinine 2.83 H (0.66-1.25) mg/dL Glucose 200 H (74-99) mg/dL POC Glucose (mg/dL) 247 H (70-110) mg/dL Calcium 7.5 L (8.4-10.2) mg/dL 12/17/23 12/17/23 Range/Units 11:09 11:47 WBC (3.8-10.6) k/uL RBC (4.30-5.90) m/uL Hgb (13.0-17.5) gm/dL Hct (39.0-53.0) % RDW (11.5-15.5) % Neutrophils # (1.3-7.7) k/uL ABG pO2 109 H (83-108) mmHg ABG HCO3 27 H (21-25) mmol/L ABG Total CO2 29 H (19-24) mmol/L ABG O2 Saturation 97.8 H (94-97) % BUN (9-20) mg/dL Creatinine (0.66-1.25) mg/dL Glucose (74-99) mg/dL POC Glucose (mg/dL) 267 H (70-110) mg/dL Calcium (8.4-10.2) mg/dL Microbiology - Last 24 Hours (Table) 12/13/23 16:35 Blood Culture - Preliminary Blood Assessment and Plan (1) Fever and chills Current Visit: Yes Status: Acute Code(s): R50.9 - FEVER, UNSPECIFIED SNOME D Code(s): 578434441 (2) Sepsis Current Visit: Yes Status: Acute Code(s): A41.9 - SEPSIS, UNSPECIFIED ORGANISM SNOMED Code(s): 10657802 (3) Aspiration pneumonia Current Visit: Yes Status: Acute Code(s): J69.0 - PNEUMONITIS DUE TO INHALATION OF FOOD AND VOMIT SNOMED Code(s): 862168504 Plan: 1patient presented hospital with chest pain noticed to have a fever on admission and another fever this morning did have predominantly respiratory symptoms with a question of possible pneumonia versus intra-abdominal pathology, but we did have a negative UA no evidence of any cellulitis or joint swelling 2-patient did have significant change in his clinical condition did have a cardiac arrest and admission to the ICU and for possible aspiration, blood and sputum culture so far negative 3-patient is currently being treated with the Zosyn, did have a low-grade fever and mild elevated white count likely to be monitored closely Dictation was produced using [employer] dictation software. please excuse any grammatical, word or spelling errors. Time with Patient: Less than 30
[2023-12-17 18:15] LABS: Glucose,Whole Blood 145 mg/dL (70-110)
[2023-12-17] MEDS ORDERED: DILTIAZEM 125 MG in SODIUM CHLORIDE 0.9% 100 ML IV SCH (18:15)
[2023-12-17] MEDS ORDERED: EPINEPHrine 10 ML SYRINGE (0.1 MG/ML) ONE ×2 (20:34→21:00)
[2023-12-17] MEDS ORDERED: CALCIUM CHLORIDE 100 MG/ML 10 ML SYRINGE ONE (20:34)
[2023-12-17] MEDS ORDERED: SODIUM BICARB 8.4% 50 ML SYR (1 MEQ/ML) ONE ×2 (20:34→21:00)
[2023-12-18 00:54] LABS: Glucose,Whole Blood 114 mg/dL (70-110)
[2023-12-18 05:14] LABS: Glucose,Whole Blood 156 mg/dL (70-110)
[2023-12-18 05:28] LABS: Anisocytosis Slight; Basophils # (A) 0.1 k/uL (0-0.2); Basophils % (A) 1 %; Eosinophils # (A) 0.3 k/uL (0-0.7); Eosinophils % (A) 2 %; HCT 29.4 % (39.0-53.0); HGB 9.3 gm/dL (13.0-17.5); Lymphocytes # (A) 1.1 k/uL (1.0-4.8); Lymphocytes % (A) 9 %; MCH 28.5 pg (25.0-35.0); MCHC 31.5 g/dL (31.0-37.0); MCV 90.3 fL (80.0-100.0); Mean Platelet Volume 9.8; Monocytes # (A) 0.6 k/uL (0-1.0); Monocytes % (A) 5 %; Neutrophils % (A) 81 %; Platelet Count 272 k/uL (150-450); RBC 3.26 m/uL (4.30-5.90); RDW 16.5 % (11.5-15.5); WBC 12.3 k/uL (3.8-10.6)
[2023-12-18 05:39] LABS: African American GFR (CKD) 27 (>60 ml/min/1.73 sqM); Anion Gap 5 mmol/L; Blood Urea Nitrogen 67 mg/dL (9-20); Calcium 7.6 mg/dL (8.4-10.2); Carbon Dioxide 28 mmol/L (22-30); Chloride 107 mmol/L (98-107); Glucose 153 mg/dL (74-99); Non-African American GFR(CKD) 23 (>60 ml/min/1.73 sqM); Potassium 3.6 mmol/L (3.5-5.1); Sodium 140 mmol/L (137-145)
[2023-12-18] MEDS: POTASSIUM CHLORIDE 10 MEQ in WATER FOR INJECTION 1 100ML.BAG IVPB SCH (06:36)
--- NOTE | 2023-12-18 08:06 | XR ---
EXAMINATION TYPE: XR chest 1V portable DATE OF EXAM: 12/18/2023 COMPARISON: 12/17/2023 HISTORY: Shortness of breath TECHNIQUE: Single frontal view of the chest is obtained. FINDINGS: ET and NG tube have been removed. Diffuse bilateral airspace disease with pleural effusion s. No pneumothorax. Heart is enlarged. Widening of the right AC joint are likely chronic correlate cl inically. Degenerative change of the spine. IMPRESSION: Diffuse pleural parenchymal changes are similar correlate for pulmonary edema versus dif fuse pneumonia.
[2023-12-18] MEDS: INSULIN DETEMIR (LEVEMIR) 100 UNIT/ML SYR SQ SCH (08:21)
--- NOTE | 2023-12-18 08:21 | PN ---
PROGRESS NOTE SUBJECTIVE: Mr. Fraser remains in atrial fibrillation, the rate is controlled, has some pauses of about 2.5 seconds. I will reduce the amiodarone from 200 mg b.i.d. to daily, decrease metoprolol tartrate 12.5 mg t.i.d. to b.i.d. He is hemodynamically stable. Extubated yesterday. Oxygenating fairly well. No chest pain. OBJECTIVE: VITAL SIGNS: Stable. CARDIOVASCULAR: S1, S2 heard normally. Short systolic murmur noted. LUNGS: Revealed fair air entry. ABDOMEN: Soft. LOWER EXTREMITIES: Revealed diminished pulses. CENTRAL NERVOUS SYSTEM: Revealed that the patient is moving all 4 extremities. No clearcut focal deficits, but he is very lethargic this morning. I have reviewed his medications. We will continue the same, which includes, 1. Plavix. 2. Subcu Heparin. 3. Metoprolol. 4. He also is on ranolazine. 5. He received some Lasix intravenously. His renal function is still abnormal, but there is significant improvement in the last 3 days. It is down to 2.1 from 4.5. We will continue currently therapy. Prognosis remains guarded. MMODL / IJN: [id number] /
[2023-12-18] MEDS: AMIODARONE 200 MG TAB PO SCH (10:07)
[2023-12-18] MEDS: METOPROLOL TARTRATE 12.5 MG TAB PO SCH (10:08)
[2023-12-18 11:30] LABS: Glucose,Whole Blood 227 mg/dL (70-110)
--- NOTE | 2023-12-18 11:30 | P.PN ---
Subjective Patient is seen in follow-up for acute kidney injury on chronic kidney disease. Started on hemodialysis December 14, 2023. Last dialysis was December 15, 2023. Extubated December 17, 2023. On Levophed. Urine output stable. Vital signs are stable. On vasopressor support. General: Resting in bed. HEENT: Intubated. LUNGS: Scattered rhonchi. HEART: Regular rate and rhythm. ABDOMEN: No distention. EXTREMITITES: 1+ edema. Objective - Vital Signs Vital signs: Vital Signs Temp 97 F L 12/18/23 04:15 Pulse 73 12/18/23 11:00 Resp 29 H 12/18/23 11:00 BP 113/52 12/18/23 11:00 Pulse Ox 96 12/18/23 10:45 FiO2 35 12/18/23 09:28 Intake & Output 12/17/23 12/18/23 12/18/23 18:59 06:59 18:59 Intake Total 153.303 209.864 518.066 Output Total 1057 555 125 Balance -903.697 -345.136 393.066 Weight 82.5 kg 82.7 kg 82.7 kg Intake: IV 33 196 455 .9 NS 33 36 15 0.9 KVO @ 10 60 40 Piperacillin-Tazobactam 3 100 100 .375 gm In Sodium Chloride 0.9% 100 ml @ 25 mls/hr IVPB Q12HR [facility] Rx #:[id number] Potassium Chloride 10 meq 300 In Water For Injection 1 100ml.bag @ 100 mls/hr IVPB Q1HR [facility] Rx#: [id number] Intake, IV Titration 83.303 13.864 13.066 Amount Norepinephrine 32 mg In 43.631 13.864 13.066 Sodium Chloride 0.9% 218 ml @ 0.03 MCG/KG/MIN 1. 223 mls/hr IV .Q24H [facility] Rx#:[id number] propofoL 1,000 mg In 39.672 Empty Bag 1 bag @ 15 MCG/ KG/MIN 7.83 mls/hr IV . [id number] [facility] Rx#:[id number] Oral 50 Tube Feeding 37 Output: Urine 1057 555 125 Other: Voiding Method Indwelling Catheter Indwelling Catheter # Bowel Movements 1 1 ABP, PAP, CO, CI - Last Documented Arterial Blood Pressure 116/44 - Labs CBC & Chem 7: 12/18/23 05:10 12/18/23 05:10 Labs: Abnormal Lab Results - Last 24 Hours (Table) 12/17/23 12/17/23 12/18/23 Range/Units 11:47 18:14 00:52 WBC (3.8-10.6) k/uL RBC (4.30-5.90) m/uL Hgb (13.0-17.5) gm/dL Hct (39.0-53.0) % RDW (11.5-15.5) % Neutrophils # (1.3-7.7) k/uL BUN (9-20) mg/dL Creatinine (0.66-1.25) mg/dL Glucose (74-99) mg/dL POC Glucose (mg/dL) 267 H 145 H 114 H (70-110) mg/dL Calcium (8.4-10.2) mg/dL 12/18/23 12/18/23 12/18/23 Range/Units 05:10 05:10 05:12 WBC 12.3 H (3.8-10.6) k/uL RBC 3.26 L (4.30-5.90) m/uL Hgb 9.3 L (13.0-17.5) gm/dL Hct 29.4 L (39.0-53.0) % RDW 16.5 H (11.5-15.5) % Neutrophils # 10.0 H (1.3-7.7) k/uL BUN 67 H (9-20) mg/dL Creatinine 2.51 H (0.66-1.25) mg/dL Glucose 153 H (74-99) mg/dL POC Glucose (mg/dL) 156 H (70-110) mg/dL Calcium 7.6 L (8.4-10.2) mg/dL Assessment and Plan Plan: Assessment: 1. Acute kidney injury secondary to hemodynamic ATN, cardiorenal syndrome and cardiac arrest. Also component of contrast-induced acute kidney injury. Creatinine up to 5.8 dated December 14, 2023. Was oliguric, now nonoliguric. UA benign. No hydronephrosis noted on CAT scan. Creatinine improved to 2.51 today. 2. 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 3. Coronary artery disease status postcardiac catheterization with stent placement on December 10, 2023. Not a candidate for CABG. 4. Metabolic acidosis secondary to acute kidney injury. Better. On oral bicarb. 5. Hyponatremia. Component of poor solute intake. Hypervolemic. Better. 6. Diabetes mellitus. 7. Possible pneumonia on antibiotics. ID following. 8. Volume overload. Improved with ultrafiltration and better urine output. On IV Lasix. 9. Status postcardiac arrest - V-fib and PEA. Plan: Continue to hold off on hemodialysis. Last treatment December 15, 2023. Increase Lasix to 60 mg IV twice daily. Potassium replaced. Wean Levophed. On midodrine. Phosphorus level 5.5 dated December 15, 2023. Repeat phosphorus level. Stop bicarb. Continue to assess daily for need for renal replacement therapy. If no further renal replacement therapy needed, dialysis catheter will be discontinued in the next 2 to 3 days.
--- NOTE | 2023-12-18 13:17 | P.PN ---
Subjective Progress Note Date: 12/18/23 I am following-up with patient and he is accompanied with his sister who feels he is improving. He is extubated. Objective - Vital Signs Vital signs: Vital Signs Temp 97.8 F 12/18/23 12:00 Pulse 71 12/18/23 12:15 Resp 16 12/18/23 12:15 BP 80/47 12/18/23 12:15 Pulse Ox 98 12/18/23 12:21 FiO2 35 12/18/23 09:28 Intake & Output 12/17/23 12/18/23 12/18/23 18:59 06:59 18:59 Intake Total 153.303 209.864 583.064 Output Total 1057 555 125 Balance -903.697 -345.136 458.064 Weight 82.5 kg 82.7 kg 82.7 kg Intake: IV 33 196 468 .9 NS 33 36 18 0.9 KVO @ 10 60 50 Piperacillin-Tazobactam 3 100 100 .375 gm In Sodium Chloride 0.9% 100 ml @ 25 mls/hr IVPB Q12HR [facility] Rx #:[id number] Potassium Chloride 10 meq 300 In Water For Injection 1 100ml.bag @ 100 mls/hr IVPB Q1HR [facility] Rx#: [id number] Intake, IV Titration 83.303 13.864 15.064 Amount Norepinephrine 32 mg In 43.631 13.864 15.064 Sodium Chloride 0.9% 218 ml @ 0.03 MCG/KG/MIN 1. 223 mls/hr IV .Q24H [facility] Rx#:[id number] propofoL 1,000 mg In 39.672 Empty Bag 1 bag @ 15 MCG/ KG/MIN 7.83 mls/hr IV . [id number] [facility] Rx#:[id number] Oral 100 Tube Feeding 37 Output: Urine 1057 555 125 Other: Voiding Method Indwelling Catheter Indwelling Catheter Indwelling Catheter # Bowel Movements 1 1 ABP, PAP, CO, CI - Last Documented Arterial Blood Pressure 110/53 - Exam GENERAL: The patient is lying in bed and does not appear in acute distress. NEUROLOGICAL: somewhat limited but the patient the is mildly drowsy and is awake to voice. He is oriented to self and place. He is able to tell me the correct month. He s tates the year is 2022. Is following simple commands. No facial weakness. The no dysarthria. Patient has hypophonia. Motor left and up bilateral upper extremity above gravity and wiggles bilateral toes symmetrically. Some of the workup during his hospital visit consisted of. Sodium is 129-->130 Creatinine is 5.81 Most recent AST is 121 which is trending up and ALTs 80s also trended up from initial presentation. CT the head is reported as no acute intracranial process. Routine EEG is abnormal. The background slowing is suggestive of severe encephalopathy. There is no focal slowing, epileptiform discharges or seizure on the EEG. - Labs CBC & Chem 7: 12/18/23 05:10 12/18/23 05:10 Labs: Abnormal Lab Results - Last 24 Hours (Table) 12/17/23 12/18/23 12/18/23 Range/Units 18:14 00:52 05:10 WBC 12.3 H (3.8-10.6) k/uL RBC 3.26 L (4.30-5.90) m/uL Hgb 9.3 L (13.0-17.5) gm/dL Hct 29.4 L (39.0-53.0) % RDW 16.5 H (11.5-15.5) % Neutrophils # 10.0 H (1.3-7.7) k/uL BUN (9-20) mg/dL Creatinine (0.66-1.25) mg/dL Glucose (74-99) mg/dL POC Glucose (mg/dL) 145 H 114 H (70-110) mg/dL Calcium (8.4-10.2) mg/dL 12/18/23 12/18/23 12/18/23 Range/Units 05:10 05:12 11:28 WBC (3.8-10.6) k/uL RBC (4.30-5.90) m/uL Hgb (13.0-17.5) gm/dL Hct (39.0-53.0) % RDW (11.5-15.5) % Neutrophils # (1.3-7.7) k/uL BUN 67 H (9-20) mg/dL Creatinine 2.51 H (0.66-1.25) mg/dL Glucose 153 H (74-99) mg/dL POC Glucose (mg/dL) 156 H 227 H (70-110) mg/dL Calcium 7.6 L (8.4-10.2) mg/dL Assessment and Plan Assessment: This is an 83-year-old gentleman who presents because chest pain. During his hospital stay he was felt to have unstable angina/NSTEMI status post stenting of the left main and ramus. On 12/12/2019 4 at night she had 2 episodes of the cardiac arrest and in total it lasted for about 23 minutes. 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 Patient was asystole. His cardiac arrest is most likely related to his extensive coronary artery disease. Unstable angina/NSTEMI status post stenting of left main and ramus Acute kidney injury Acute hypoxic respiratory failure status post mechanical ventilation--extubated Transaminitis History of stroke History of diabetes mellitus Hyperlipidemia History of coronary artery disease status post LAD in September 2022 cup By acute thrombosis requiring angioplasty and thrombectomy. Plan: patient is extubated and the patient is awakeable, responsive and following commands. Cardiology, nephrology are consulted. Will defer the rest of medical management to primary and other specialist. Patient overall condition is very guarded. The plan was discussed with the his sister who is at bedside. Will follow-up sporadically. Dr. Waddell will resume neurology service on . Time with Patient: Less than 30
--- NOTE | 2023-12-18 14:16 | P.PN ---
Subjective Progress Note Date: 12/18/23 Hospital Course: 83-year-old male with PMH of CAD, history of CVA, diabetes mellitus, chronic k idney disease, hypertension, BPH, hypothyroidism presents the ED for chest pain. Chest pain woke him up at 3AM. Chest pain mid sternal, described as rumbling, radiating to both arms. Associated symptoms include diaphoresis. Chest pain was relieved by sublingual nitroglycerin. Of note, also reports fevers as high as 101.3F over the past 3 days. No cough, rash, urinary or bowel symptoms. In the ED, he underwent extensive evaluation. BP 98/61, HR 84, RR 20, T 102.6F, 100% on 1 LNC. CBC, coag panel and CMP was done significant for lymphocyte count of 0.5, sodium 1:30, bicarb 18, BUN 34, creatinine 1.8, glucose 184, calcium 8.2, alk phos 167. Magnesium 2.2. Troponin 0.028. Flu, RSV, COVID-19 negative. EKG showed sinus rhythm with left bundle branch block. Chest x-ray showed small right pleural effusion and pulmonary vascular congestion. Patient is admitted for chest pain, rule out acute coronary syndrome and cardiology consultation. Workup from previous admission was reviewed. Cardiac cath 09/04/23 showed 70-80% distal left main, 100% ostial LAD with collateral, 80-90% ostial PDA, 80% proximal OM1. He has been evaluated by CT surgery in the past deemed to be poor surgical judy date for revascularization. Echocardiogram 09/01/23 showed EF 35-40% with anteroseptal, anterior wall hypokinesia, mild aortic stenosis. His troponins uptrended and he was started on a heparin drip. Cardiology consulted, he underwent cardiac catheterization on 12/08 but was cancelled due to poor vascular access. He underwent repeat cardiac cath on 12/09 and PCI of left main and ramus. His renal function continued to worsen after cardiac cath. LISSETH LORENZO was called on 12/11, noted to be in asystole and V-Fib requiring defibrillation, epinephrine, calcium chloride and sodium bicarb. ROSC was achiev ed and he was transferred to the ICU. He developed asystole again in the ICU requiring epinephrine and sodium bicarb. ROSC was once again achieved. Nephrology consulted, HD catheter placed and HD started on 12/13. Neurology consulted for anoxic encephalopathy, Brain CT (negative for acute pathology) and EEG (severe encephaopathy) ordered. 12/14 Patient was seen and examined. Intubated. Currently on Levophed at 0.13 mcg/kg/min. Maintained on Zosyn 3.375 IV TID (D2) for treatment of aspiration P NA. CBC shows WBC 13.7 Hg 9.8 Hct 29.7. ABG pH 7.45, pCO2 35. BMP Na 130, Cl 95, bicarb 31, BUN 77, Cr 4.5, glu 264, Ca 7.6. Phos 5.5. Mag 2.4. CXR done this morning shows diffiuse changes differentials including pulmonary edema/ARDS or PNA. 12/15 Patient was seen and examined. Intubated. Off Propofol. Opening eyes but not following direction. No plans for extubation per discussion with Dr. Bey today. Discussed with Dr. Meeks, plans for Lasix 40 mg IV today. Currently on Levophed 0.06 mcg/kg/min. CXR shows signs of pulmonary edema. Maintained on Zosyn 3.375 IV TID (D3) for treatment of aspiration PNA. CBC WBC 13.2 Hg 9.8 Hct 30.4. ABG pH 7.46 pCO2 34. BMP Na 132, BUN 57, Cr 2.93, glu 277, alb 2.5. BG ranging in the 2-300s, plans to add Novolog 3 units TID along with MISS and Levemir. Subjective: Patient seen and examined at bedside. Extubated yesterday, on BiPAP, following commands. Adequate urine output. Still on levo. Pertinent positives and negatives as discussed above, a complete review of systems was performed and all other systems are negative. Vitals Signs Reviewed. General: Not in acute distress Derm: Warm, dry Head: Atraumatic, normocephalic, symmetric Eyes: Equal and reactive pupils Mouth: No lip lesion, mucus membranes moist Cardiovascular: S1S2 reg, no murmur Lungs: Bilateral rhonchi, no accessory muscle use, on BiPAP Abdominal: Soft, nontender to palpation, no guarding, no appreciable organomegaly Ext: No gross muscle atrophy, no edema, no contractures Neuro: Following commands Psych: Unable to assess Data Reviewed Today: Pertinent Labs: WBC 12.3, hemoglobin 9.3, creatinine 2.51, blood glucose range between 1 14-1 56 Imaging: Chest x-ray independently interpreted, shows bilateral interstitial opacities from yesterday Assessment and Plan: Status postcardiac arrest x 2 Acute NSTEMI, severe coronary artery disease, status post PCI Cardiogenic shock Acute hypoxic respiratory failure Sepsis secondary to aspiration pneumonia Acute systolic CHF exacerbation Acute kidney injury, on hemodialysis Acute encephalopathy, possibly hypoxic/anoxic Type 2 diabetes -Continue to wean Levophed -Extubated, on BiPAP, continue to wean -Cardiology following, patient on amiodarone 200 mg oral daily, metoprolol 12.5 twice daily, Ranexa 500 twice daily, aspirin 81, Plavix 75, atorvastatin 80 -Nephrology note reviewed, hold dialysis, Lasix increased to IV twice daily 60, midodrine 10 3 times daily, bicarb discontinued -Pulmonology following, patient on DuoNebs 4 times daily as needed, Pulmicort twice daily -Patient is on IV Zosyn 3.375 g every 12 hours -Neurology note reviewed, continue current care -Levemir 30 units daily, 6 units 3 times daily, sliding scale insulin, monitor for hypoglycemia DVT ppx: Subcu heparin Code status: Full code Anticipated discharge place: Pending clinical course Anticipated discharge time: Pending clinical course Objective - Vital Signs Vital signs: Vital Signs Temp 97.8 F 12/18/23 12:00 Pulse 76 12/18/23 13:30 Resp 24 12/18/23 13:30 BP 106/57 12/18/23 13:30 Pulse Ox 100 12/18/23 13:30 FiO2 35 12/18/23 09:28 Intake & Output 12/17/23 12/18/23 12/18/23 18:59 06:59 18:59 Intake Total 153.303 209.864 596.064 Output Total 1057 555 175 Balance -903.697 -345.136 421.064 Weight 82.5 kg 82.7 kg 82.7 kg Intake: IV 33 196 481 .9 NS 33 36 21 0.9 KVO @ 10 60 60 Piperacillin-Tazobactam 3 100 100 .375 gm In Sodium Chloride 0.9% 100 ml @ 25 mls/hr IVPB Q12HR [facility] Rx #:[id number] Potassium Chloride 10 meq 300 In Water For Injection 1 100ml.bag @ 100 mls/hr IVPB Q1HR [facility] Rx#: [id number] Intake, IV Titration 83.303 13.864 15.064 Amount Norepinephrine 32 mg In 43.631 13.864 15.064 Sodium Chloride 0.9% 218 ml @ 0.03 MCG/KG/MIN 1. 223 mls/hr IV .Q24H [facility] Rx#:[id number] propofoL 1,000 mg In 39.672 Empty Bag 1 bag @ 15 MCG/ KG/MIN 7.83 mls/hr IV . [id number] [facility] Rx#:[id number] Oral 100 Tube Feeding 37 Output: Urine 1057 555 175 Other: Voiding Method Indwelling Catheter Indwelling Catheter Indwelling Catheter # Bowel Movements 1 1 ABP, PAP, CO, CI - Last Documented Arterial Blood Pressure 127/55 - Labs CBC & Chem 7: 12/18/23 05:10 12/18/23 05:10 Labs: Abnormal Lab Results - Last 24 Hours (Table) 12/17/23 12/18/23 12/18/23 Range/Units 18:14 00:52 05:10 WBC 12.3 H (3.8-10.6) k/uL RBC 3.26 L (4.30-5.90) m/uL Hgb 9.3 L (13.0-17.5) gm/dL Hct 29.4 L (39.0-53.0) % RDW 16.5 H (11.5-15.5) % Neutrophils # 10.0 H (1.3-7.7) k/uL BUN (9-20) mg/dL Creatinine (0.66-1.25) mg/dL Glucose (74-99) mg/dL POC Glucose (mg/dL) 145 H 114 H (70-110) mg/dL Calcium (8.4-10.2) mg/dL 12/18/23 12/18/23 12/18/23 Range/Units 05:10 05:12 11:28 WBC (3.8-10.6) k/uL RBC (4.30-5.90) m/uL Hgb (13.0-17.5) gm/dL Hct (39.0-53.0) % RDW (11.5-15.5) % Neutrophils # (1.3-7.7) k/uL BUN 67 H (9-20) mg/dL Creatinine 2.51 H (0.66-1.25) mg/dL Glucose 153 H (74-99) mg/dL POC Glucose (mg/dL) 156 H 227 H (70-110) mg/dL Calcium 7.6 L (8.4-10.2) mg/dL
--- NOTE | 2023-12-18 14:34 | P.PN ---
Subjective Progress Note Date: 12/18/23 Principal diagnosis: Cardiac arrest x 2 83-year-old male patient who sustained a cardiac yesterday at 2033 and following that the patient was moved to the intensive care unit. The patient was found in asystole. He received CPR based on ACLS protocol. Initial downtime was around 25 to 30 minutes and the patient received 4 rounds of epinephrine and CPR. During the process the patient was also found to be in V-fib and was defibrillated. He was brought into the intensive care unit where he had another code at 2106 and the second code was brief. He was placed on pressors. He is already intubated on mechanical ventilator.. This morning, the patient is on propofol which is running at 50 mcg/kg/min. He is hypotensive and is on norepinephrine 0.18 micrograms per kilogram per minute. He was a difficult IV access. Unable to insert an arterial line. The triple-lumen catheter was inserted in the right femoral vein for hemodynamic support and pressors. At this point in time, he is on assist-control mode at a rate of 20, tidal volume of 400, FiO2 of 70% with a PEEP of 5. The chest x-ray is showing adequate positioning of the ET tube. Orotracheal tube was initially in the right mainstem that was pulled out. No change in the bilateral opacities seen. The patient also has a moderate-sized right-sided pleural effusion along with pulm vascular congestion. Blood work from today shows a WBC count 9.9 with a hemoglobin 10.9 and a platelet count of 147. pH is 7.43 with a pCO2 of 34 and a pO2 of 84. Sodium levels at 127 and potassium levels at 4.3 with a serum bicarb of 17 and the BUN is at 80 with a creatinine of 4.2 as the patient has an acute on top of chronic kidney injury. This could have been also related to contrast as the patient's creatinine was gradually going up following his cardiac procedures. Troponin currently is at 3.07 and it is uptrending again post cardiac arrest. Cardiology was informed of those changes. No plans for any further intervention. In terms of his cardiac history, the patient is followed by Dr. Nelson who presents with symptoms of chest discomfort. He has a known history of CAD underwent stenting of the LAD in September [address] Remy and subsequently was readmitted about a week after with acute thrombosis and underwent angioplasty and thrombectomy. He underwent repeat cardiac catheterization in August and was found to have totally occluded LAD with distal left main disease but was felt to be a poor candidate for any surgical intervention. He presents with symptoms of chest discomfort and dyspnea at rest yesterday He usually has exertional angina pectoris with dyspnea on exertion. His activity is limited. He has evidence of cardiomyopathy with segmental wall motion abnormality consistent with his initial presentation with myocardial infarction.Patient is status attempted catheterization with Dr. Nelson on 12/09/2023. Dr. Nelson had difficulty obtaining access and his cardiac catheteriz ation was canceled. He underwent repeat cardiac catheterization with Dr. Remy with PCI of left main and ramus. Patient was hypotensive during the procedure. Patient was reevaluated today on 12/14/2023, patient remains in the ICU, intubated and mechanically ventilated. Patient was initially admitted on 12/05 with unstable angina, chest pain, severe coronary artery disease, and he was never felt to be a candidate for any surgical intervention. He had chronically occluded ostial LAD and ischemic cardiomyopathy. In addition he had chronic kidney disease and diabetes. As noted above the patient had cardiac arrest x 2 remains intubated and mechanically ventilated, he is on assist-control rate of 20 tidal volume 400 FiO2 50% PEEP of 5 ABG showed a pO2 of 88 pCO2 35 pH of 7.41. Patient may have developed anoxic brain injury, hence neurology will be consulted. Patient required a right brachial arterial line placement today, and this was done uneventfully. Patient will be started today on tube feeding. Looking back at the patient's history, patient clearly has a significant cardiac history, on 12/11, patient had V-fib cardiac arrest x 2 and he had CPR at 1 time it was 20 minutes the second time was 8 minutes of CPR. Obviously we are quite concerned about the possibility of anoxic brain injury. Chest x-ray is showing evidence of pulmonary edema, underlying pneumonia is not entirely ruled out but felt to be less likely patient is requiring norepinephrine at 0.16 mcg/kg/min also requiring propofol at 40 mcg/kg/min, FiO2 was decreased down to 45% today. Renal functioning is continuing to worse, patient is not making much urine, and spite of giving him Lasix and Bumex renal replacement therapy will be initiated today. Dialysis catheter was placed this morning. WBC count today is 10.3 hemoglobin is 9.9 basic metabolic profile is normal except for sodium of 129, BUN is up to 88 creatinine 5.81 blood sugar is 272 Patient was reevaluated today on 12/15/2023, remains in the ICU, intubated and mechanically ventilated he is on assist-control rate of 20 tidal volume 400 FiO2 35% and PEEP of 5 ABG showed a pO2 of 77 pCO2 35 pH of 7.45, patient is undergoing hemodialysis this morning. Remains on amiodarone drip, propofol at 25 mcg/kg/min is also on norepinephrine drip at 0.14 mcg/kg/min remains empirically on Zosyn. Chest x-ray is consistent with diffuse pleuroparenchymal changes/pulmonary edema picture, possible ARDS but I believe that pulmonary edema is really cardiogenic in nature. Sibling has history of ischemic cardiomyopathy. CBC showed WBC of 13.7 hemoglobin 9.8. Basic metabolic profile is normal sodium is 130, BUN is 77 creatinine 4.50, again the patient will have hemodialysis today neurologically, the patient is not responding to any stimuli, being followed by neurology, and I honestly believe the patient has most likely severe anoxic brain injury. Off sedation yesterday, patient was opening his eyes only but no other responses noted Evaluated today on 12/16/2023, remains in the ICU, intubated and mechanically ventilated, on assist-control rate of 20 tidal volume 400 FiO2 35% PEEP of 5 ABG showed a pO2 of 72 pCO2 34 pH of 7.46. Patient is opening eyes only but no responses whatsoever except opening eyes. And no purposeful movement is noted. He is off sedation for the last 24 hours, still requiring norepinephrine at 0.09 mcg/kg/min remains on Zosyn empirically patient has a decent urine output of 50 to 100 cc/h chest x-ray continues to show evidence of pulmonary edema or possible aspiration pneumonia. Patient is being treated for both. I suspect clinically that this is more of pulmonary edema secondary to severe LV dysfun ction. At any rate we will continue to keep the patient off sedation as long as tolerated to fully assess mental status, presently although we could get is patient opening his eyes only. WBC count is 13.2 hemoglobin 9.8. Basic metabolic profile is normal BUN is 57 creatinine 2.93, patient has been on hemodialysis since 12/13, his last dialysis was yesterday. Urine output is picking up slightly. Patient was reevaluated today on 12/17/2023, remains intubated but not sedated, patient is off propofol, patient is awake, follows simple instructions like squeezing hands, wiggling toes, and closing and opening eyes. Seems to be appropriate, hence I plan to give the patient today a trial of pressure support and CPAP. His ABG showed a pO2 of 90 pCO2 37 pH of 7.43, patient has improvement in his urine output, his last hemodialysis was on 12/14, and his urine output seems to be stable, continues to receive tube feeds, still requiring norepinephrine at 0.1 mcg/kg/min remains on Zosyn and remains intermittently on diuretics. Chest x-ray is showing diffuse pleural-parenchymal changes consistent with pulmonary edema and/or pneumonia. Patient is receiving treatment for both the last chest x-ray is showing improvement sputum cultures have been nondiagnostic, blood cultures have been negative. WBC count today is 14.3 hemoglobin is 9.9, basic metabolic profile is normal BUN is 67 creatinine 2.83 steadily improving over the last few days. Reevaluate today on 12/18/2023, patient was extubated yesterday, he is presently on BiPAP 14/5/35%. Patient remains on norepinephrine at 0.04 mcg/kg/min, he is off fluids at KVO, his last hemodialysis was 12/14, urine output is reasonable, patient may not require any more hemodialysis. Patient is to have a swallow evaluation today, remains on Zosyn for presumptive aspiration pneumonia. At any rate patient tolerated the extubation well over the last 24 hours, but he remains marginal and I would like to continue to monitor the patient in the ICU for at least the next 24 to 48 hours. Chest x-ray continues to show diffuse pleural-parenchymal changes, suspicious for pulmonary edema or aspiration pneumonia but improving, CBC is relatively normal basic metabolic profile is normal BUN is 67 creatinine down to 2.51 Objective - Vital Signs Vital signs: Vital Signs Temp 97.8 F 12/18/23 12:00 Pulse 76 12/18/23 13:30 Resp 24 12/18/23 13:30 BP 106/57 12/18/23 13:30 Pulse Ox 100 12/18/23 13:30 FiO2 35 12/18/23 09:28 Intake & Output 12/17/23 12/18/23 12/18/23 18:59 06:59 18:59 Intake Total 153.303 209.864 596.064 Output Total 1057 555 175 Balance -903.697 -345.136 421.064 Weight 82.5 kg 82.7 kg 82.7 kg Intake: IV 33 196 481 .9 NS 33 36 21 0.9 KVO @ 10 60 60 Piperacillin-Tazobactam 3 100 100 .375 gm In Sodium Chloride 0.9% 100 ml @ 25 mls/hr IVPB Q12HR [facility] Rx #:[id number] Potassium Chloride 10 meq 300 In Water For Injection 1 100ml.bag @ 100 mls/hr IVPB Q1HR [facility] Rx#: [id number] Intake, IV Titration 83.303 13.864 15.064 Amount Norepinephrine 32 mg In 43.631 13.864 15.064 Sodium Chloride 0.9% 218 ml @ 0.03 MCG/KG/MIN 1. 223 mls/hr IV .Q24H [facility] Rx#:[id number] propofoL 1,000 mg In 39.672 Empty Bag 1 bag @ 15 MCG/ KG/MIN 7.83 mls/hr IV . [id number] [facility] Rx#:[id number] Oral 100 Tube Feeding 37 Output: Urine 1057 555 175 Other: Voiding Method Indwelling Catheter Indwelling Catheter Indwelling Catheter # Bowel Movements 1 1 ABP, PAP, CO, CI - Last Documented Arterial Blood Pressure 127/55 - Exam General: Revealed 83-year-old white male on BiPAP, awake, follows simple instructions. Head: Atraumatic, normocephalic Skin: Skin is warm and dry and no rashes or lesions are noted. Eye: Pupils are equal, round and reactive to light, extra-ocular movements are intact; there is normal conjunctiva bilaterally. Ears, nose, mouth and throat: There are moist mucous membranes and no oral lesions. Neck: The neck is supple, there is no tenderness or JVD. Cardiovascular: Distant S1-S2, no S3 gallop. Respiratory: Fine crackles at the bases noted bilaterally. Gastrointestinal: Soft, non-distended, non-tender abdomen without masses or organomegaly noted. There is no rebound or guarding present. Bowel sounds are unremarkable. Back: There is no tenderness to palpation in the midline. There is no obvious deformity. Musculoskeletal: Normal ROM, no tenderness, 1+ bipedal edema noted.. There is n o calf tenderness Neurological: Awake, continues to follow follow simple instructions, seems to be generally weak. Psychiatric: Normal mood, flat affect, continues to follow simple instructions today - Labs CBC & Chem 7: 12/18/23 05:10 12/18/23 13:34 Labs: Abnormal Lab Results - Last 24 Hours (Table) 12/17/23 12/18/23 12/18/23 Range/Units 18:14 00:52 05:10 WBC 12.3 H (3.8-10.6) k/uL RBC 3.26 L (4.30-5.90) m/uL Hgb 9.3 L (13.0-17.5) gm/dL Hct 29.4 L (39.0-53.0) % RDW 16.5 H (11.5-15.5) % Neutrophils # 10.0 H (1.3-7.7) k/uL BUN (9-20) mg/dL Creatinine (0.66-1.25) mg/dL Glucose (74-99) mg/dL POC Glucose (mg/dL) 145 H 114 H (70-110) mg/dL Calcium (8.4-10.2) mg/dL Phosphorus (2.5-4.5) mg/dL 12/18/23 12/18/23 12/18/23 Range/Units 05:10 05:12 11:28 WBC (3.8-10.6) k/uL RBC (4.30-5.90) m/uL Hgb (13.0-17.5) gm/dL Hct (39.0-53.0) % RDW (11.5-15.5) % Neutrophils # (1.3-7.7) k/uL BUN 67 H (9-20) mg/dL Creatinine 2.51 H (0.66-1.25) mg/dL Glucose 153 H (74-99) mg/dL POC Glucose (mg/dL) 156 H 227 H (70-110) mg/dL Calcium 7.6 L (8.4-10.2) mg/dL Phosphorus (2.5-4.5) mg/dL 12/18/23 Range/Units 13:44 WBC (3.8-10.6) k/uL RBC (4.30-5.90) m/uL Hgb (13.0-17.5) gm/dL Hct (39.0-53.0) % RDW (11.5-15.5) % Neutrophils # (1.3-7.7) k/uL BUN (9-20) mg/dL Creatinine (0.66-1.25) mg/dL Glucose (74-99) mg/dL POC Glucose (mg/dL) (70-110) mg/dL Calcium (8.4-10.2) mg/dL Phosphorus 4.7 H (2.5-4.5) mg/dL Assessment and Plan Assessment: Impression: Cardiac arrest x 2 Severe coronary artery disease and acute non-ST elevation myocardial infarction Acute hypoxic respiratory failure secondary to above Cardiogenic shock Acute systolic congestive heart failure Anoxic encephalopathy Severe ischemic cardiomyopathy and LV dysfunction with ejection fraction of 35 to 40% History of CVA History of medical debility and multiple comorbidities Type 2 diabetes Dyslipidemia Acute kidney injury , on hemodialysis History of underlying coronary artery disease with previous stent of LAD September 22, 2001 3, complicated by acute thrombosis requiring angioplasty and thrombectomy repeat cardiac catheterization 09/12 showed totally occluded LAD with distal left main disease felt to be poor candidate for surgical intervention Commendation: Continue BiPAP and transition eventually to nasal cannula if tolerated. Continue incentive spirometry Continue hemodynamic support, patient is still requiring norepinephrine Continue to hold on narcotics and sedatives for now Continue aspirin and Plavix Swallow evaluation to be done and address possibly feeding, otherwise will recommend a nasogastric tube placement for feeding Continue to hold on dialysis for now as the patient is making good amount of urine, and his renal functioning is improving without hemodialysis Continue GI and DVT prophylaxis Continue empiric antibiotics for presumptive aspiration Remittent gentle diuresis, intermittently. Continue bronchodilators and updrafts Continue statins Remains critical, Will continue to monitor in the ICU for the next 24 to 48 hours Critical care time is over 30 minutes Time with Patient: Greater than 30
--- NOTE | 2023-12-18 15:06 | P.PN ---
Subjective Progress Note Date: 12/18/23 Principal diagnosis: Reason for follow-up is fever possible pneumonia Patient is a 83-year-old male past medical history significant for diabetes mellitus hypertension NM CVA TIA presenting to the hospital with chest pain shortness of breath also noticed to be febrile prompting this consultation. Patient did have worsening of his respiratory status and also cardiac arrest with the patient has been intubated and transferred to the ICU On today's evaluation that is 12/18/2023, patient has been afebrile, patient is breathing comfortably and is currently on 5 L nasal cannula oxygen, patient slightly lethargic however denies any chest pain or cough no vomiting or d iarrhea has been reported. Patient white count is 12.3 creatinine is 2.51 cultures have been negative so far Objective - Vital Signs Vital signs: Vital Signs Temp 97.8 F 12/18/23 12:00 Pulse 71 12/18/23 12:15 Resp 16 12/18/23 12:15 BP 80/47 12/18/23 12:15 Pulse Ox 98 12/18/23 12:21 FiO2 35 12/18/23 09:28 Intake & Output 12/17/23 12/18/23 12/18/23 18:59 06:59 18:59 Intake Total 153.303 209.864 583.064 Output Total 1057 555 125 Balance -903.697 -345.136 458.064 Weight 82.5 kg 82.7 kg 82.7 kg Intake: IV 33 196 468 .9 NS 33 36 18 0.9 KVO @ 10 60 50 Piperacillin-Tazobactam 3 100 100 .375 gm In Sodium Chloride 0.9% 100 ml @ 25 mls/hr IVPB Q12HR [facility] Rx #:[id number] Potassium Chloride 10 meq 300 In Water For Injection 1 100ml.bag @ 100 mls/hr IVPB Q1HR [facility] Rx#: [id number] Intake, IV Titration 83.303 13.864 15.064 Amount Norepinephrine 32 mg In 43.631 13.864 15.064 Sodium Chloride 0.9% 218 ml @ 0.03 MCG/KG/MIN 1. 223 mls/hr IV .Q24H [facility] Rx#:[id number] propofoL 1,000 mg In 39.672 Empty Bag 1 bag @ 15 MCG/ KG/MIN 7.83 mls/hr IV . [id number] [facility] Rx#:[id number] Oral 100 Tube Feeding 37 Output: Urine 1057 555 125 Other: Voiding Method Indwelling Catheter Indwelling Catheter Indwelling Catheter # Bowel Movements 1 1 ABP, PAP, CO, CI - Last Documented Arterial Blood Pressure 110/53 - Exam GENERAL DESCRIPTION: An elderly male intubated on the vent RESPIRATORY SYSTEM: Unlabored breathing , decreased breath sounds at bases HEART: S1 S2 regular rate and rhythm , ABDOMEN: Soft , no tenderness EXTREMITIES: No edema feet - Labs CBC & Chem 7: 12/18/23 05:10 12/18/23 13:34 Labs: Abnormal Lab Results - Last 24 Hours (Table) 12/17/23 12/18/23 12/18/23 Range/Units 18:14 00:52 05:10 WBC 12.3 H (3.8-10.6) k/uL RBC 3.26 L (4.30-5.90) m/uL Hgb 9.3 L (13.0-17.5) gm/dL Hct 29.4 L (39.0-53.0) % RDW 16.5 H (11.5-15.5) % Neutrophils # 10.0 H (1.3-7.7) k/uL BUN (9-20) mg/dL Creatinine (0.66-1.25) mg/dL Glucose (74-99) mg/dL POC Glucose (mg/dL) 145 H 114 H (70-110) mg/dL Calcium (8.4-10.2) mg/dL 12/18/23 12/18/23 12/18/23 Range/Units 05:10 05:12 11:28 WBC (3.8-10.6) k/uL RBC (4.30-5.90) m/uL Hgb (13.0-17.5) gm/dL Hct (39.0-53.0) % RDW (11.5-15.5) % Neutrophils # (1.3-7.7) k/uL BUN 67 H (9-20) mg/dL Creatinine 2.51 H (0.66-1.25) mg/dL Glucose 153 H (74-99) mg/dL POC Glucose (mg/dL) 156 H 227 H (70-110) mg/dL Calcium 7.6 L (8.4-10.2) mg/dL Assessment and Plan (1) Fever and chills Current Visit: Yes Status: Acute Code(s): R50.9 - FEVER, UNSPECIFIED SNOMED Code(s): 764420050 (2) Sepsis Current Visit: Yes Status: Acute Code(s): A41.9 - SEPSIS, UNSPECIFIED ORGANISM SNOMED Code(s): 37352240 (3) Aspiration pneumonia Current Visit: Yes Status: Acute Code(s): J69.0 - PNEUMONITIS DUE TO INHALATION OF FOOD AND VOMIT SNOMED Code(s): 468867413 Plan: 1patient presented hospital with chest pain noticed to have a fever on admission and another fever this morning did have predominantly respiratory sym ptoms with a question of possible pneumonia versus intra-abdominal pathology, but we did have a negative UA no evidence of any cellulitis or joint swelling 2-patient did have significant change in his clinical condition did have a cardiac arrest and admission to the ICU and for possible aspiration, blood and sputum culture so far negative 3-patient is afebrile patient white count is trending down, patient to continue with Zosyn and monitor clinical course closely Dictation was produced using [employer] dictation software. please excuse any grammatical, word or spelling errors. Time with Patient: Less than 30
[2023-12-18 16:27] LABS: Glucose,Whole Blood 212 mg/dL (70-110)
[2023-12-18] MEDS: INSULIN ASPART (NovoLOG) 100 UNIT/ML VIAL SQ SCH (16:34)
[2023-12-18 20:54] LABS: Glucose,Whole Blood 185 mg/dL (70-110)
[2023-12-18] MEDS: FUROSEMIDE 10 MG/ML 10 ML VIAL IV SCH (21:06)
[2023-12-19] MEDS: MORPHINE SULFATE 2 MG/ML SYRINGE IVP STA ×2 (00:01→20:17)
[2023-12-19 05:38] LABS: Anisocytosis Slight; Basophils # (A) 0.1 k/uL (0-0.2); Basophils % (A) 1 %; Eosinophils # (A) 0.2 k/uL (0-0.7); Eosinophils % (A) 2 %; HCT 31.9 % (39.0-53.0); HGB 9.8 gm/dL (13.0-17.5); Hypochromasia Moderate; Lymphocytes # (A) 1.3 k/uL (1.0-4.8); Lymphocytes % (A) 10 %; MCH 28.6 pg (25.0-35.0); MCHC 30.6 g/dL (31.0-37.0); MCV 93.4 fL (80.0-100.0); Mean Platelet Volume 10.3; Monocytes # (A) 0.5 k/uL (0-1.0); Monocytes % (A) 4 %; Neutrophils # (A) 10.9 k/uL (1.3-7.7); Neutrophils % (A) 82 %; Platelet Count 286 k/uL (150-450); RBC 3.41 m/uL (4.30-5.90); RDW 16.6 % (11.5-15.5); WBC 13.3 k/uL (3.8-10.6)
[2023-12-19 05:53] LABS: African American GFR (CKD) 29 (>60 ml/min/1.73 sqM); Anion Gap 14 mmol/L; Blood Urea Nitrogen 74 mg/dL (9-20); Calcium 7.8 mg/dL (8.4-10.2); Carbon Dioxide 19 mmol/L (22-30); Chloride 107 mmol/L (98-107); Glucose 240 mg/dL (74-99); Non-African American GFR(CKD) 25 (>60 ml/min/1.73 sqM); Potassium 4.3 mmol/L (3.5-5.1); Sodium 140 mmol/L (137-145)
[2023-12-19 06:23] LABS: Glucose,Whole Blood 255 mg/dL (70-110)
--- NOTE | 2023-12-19 10:48 | P.PN ---
Subjective Progress Note Date: 12/19/23 83-year-old male with PMH of CAD, history of CVA, diabetes mellitus, chronic kidney disease, hypertension, BPH, hypothyroidism presents the ED for chest pain. Chest pain woke him up at 3AM. Chest pain mid sternal, described as rumbling, radiating to both arms. Associated symptoms include diaphoresis. Chest pain was relieved by sublingual nitroglycerin. Of note, also reports fevers as high as 101.3F over the past 3 days. No cough, rash, urinary or bowel symptoms. In the ED, he underwent extensive evaluation. BP 98/61, HR 84, RR 20, T 102.6F, 100% on 1 LNC. CBC, coag panel and CMP was done significant for lymphocyte count of 0.5, sodium 1:30, bicarb 18, BUN 34, creatinine 1.8, glucose 184, calcium 8.2, alk phos 167. Magnesium 2.2. Troponin 0.028. Flu, RSV, COVID-19 negative. EKG showed sinus rhythm with left bundle branch block. Chest x-ray showed small right pleural effusion and pulmonary vascular congestion. Patient is admitted for chest pain, rule out acute coronary syndrome and cardiology consultation. Workup from previous admission was reviewed. Cardiac cath 09/04/23 showed 70-80% distal left main, 100% ostial LAD with collateral, 80-90% ostial PDA, 80% proximal OM1. He has been evaluated by CT surgery in the past deemed to be poor surgical candidate for revascularization. Echocardiogram 09/01/23 showed EF 35-40% with anteroseptal, anterior wall hypokinesia, mild aortic stenosis. His troponins uptrended and he was started on a heparin drip. Cardiology consulted, he underwent cardiac catheterization on 12/08 but was cancelled due to poor vascular access. He underwent repeat cardiac cath on 12/09 and PCI of left main and ramus. His renal function continued to worsen after cardiac cath. CODE BJ was called on 12/11, noted to be in asystole and V-Fib requiring defibril lation, epinephrine, calcium chloride and sodium bicarb. ROSC was achieved and he was transferred to the ICU. He developed asystole again in the ICU requiring epinephrine and sodium bicarb. ROSC was once again achieved. Nephrology consulted, HD catheter placed and HD started on 12/13 and 12/14. Neurology consulted for anoxic encephalopathy, Brain CT (negative for acute pathology) and EEG (severe encephaopathy) ordered. He remained intubated and maintained on Levophed and Zosyn. He was extubated on 12/16 and transitioned to BiPAP. He remains on Levophed. 12/18 Patient was seen and examined. Maintained on BiPAP 14/5 35%. Currently on Levophed at 0.03 mcg/kg/min. Antibiotics include Zosyn (D5). CBC WBC 13.3 Hg 9.8 Hct 31.9. BMP bicarb 19, BUN 74, Cr 2.34, glu 240, Ca 7.8. CXR done today shows pulmonary edema. He is currently receiving Lasix 60 mg IV BID. - 1248 cc fluid balance over the past 24H. 77.111kg to 82.7 kg weight change since admission. General: no distress, appears at stated age Derm: warm, dry Head: atraumatic, normocephalic, symmetric Eyes: EOMI, no lid lag, anicteric sclera Mouth: no lip lesion, mucus membranes moist Cardiovascular: S1S2 reg, no murmur Lungs: Coarse BS bilateral, no rhonchi, no rales , no accessory muscle use Abdominal: soft, nontender to palpation, no guarding, no appreciable organomegaly Ext: no gross muscle atrophy, no edema, no contractures Neuro: No focal neurologic deficits Psych: Alert and oriented Based on my assessment of this patient, this patient meets a high complexity level of care. Patient has an acute diagnosis of NSTEMI complicated with renal failure, asystole and VFib requiring debrillation currently intubated that poses a threat to life or bodily function. Acute hypoxic respiratory failure: Extubated 12/16. CXR shows diffuse infiltrates concerning pulmonary edema. Initiated on HD on 12/13 and 12/14. Maintained on Zosyn per ID. DuoNeb PRN for SOB/wheezing. Pulmicort 1 INH BID. Lasix 60 mg IV BID. Acute anoxic encephalopathy: Results of Brain CT and EEG as above. Improving. Neurology on board. Sepsis due to aspiration PNA: Maintained on Zosyn 3.375g IV TID (D5). BCx 12/06 negative. Sputum Cx 12/11 and BCx 12/12 negative. ID on board. ZOEY on CKD: Initiated on HD on 12/13 and 12/14. Lasix 60 mg IV BID. Sodium bicarbonate 650 mg PO BID. Nephrology on board. NSTEMI: Status post PCI of left main and ramus 12/09. ASA 81 mg PO QD. Lipitor 80 mg PO QHS. Plavix 75 mg PO QD. Ranexa 500 mg PO BID. Diabetes mellitus with hyperglycemia: Highest POC glucose 255. ISS. Novolog 6 units TID. Levemir 30 units QD. Accuechecks Q6H. Hypoglycemic precautions. Normocytic anemia: Transfuse if Hg < 7. Resolving: Acute anoxic encephalopathy Resolved: Hyponatremia Chronic conditions: history of CVA, hypertension, BPH, hypothyroidism CODE STATUS: FULL CODE. DVT Prophylaxis: Heparin SQ GI Prophylaxis: Protonix IV Designated medical POA if patient is not able to make medical decisions for themselves: Daughter I have reviewed the following loss control consultant notes: ID, Cardiology, Pulmonary, Neurology, Nephrology note. I have reviewed the results of the following tests: CBC. BMP. I have ordered the following tests: CBC. BMP. I have discussed the care of this patient with the following independent historian: I have independently interpreted the following test below: CXR I have discussed the management of this patient with the following physician: Objective - Vital Signs Vital signs: Vital Signs Temp 97 F L 12/19/23 04:00 Pulse 76 12/19/23 06:00 Resp 15 12/19/23 06:00 BP 118/61 12/19/23 06:00 Pulse Ox 99 12/19/23 06:00 FiO2 35 12/19/23 06:00 Intake & Output 12/18/23 12/18/23 12/19/23 06:59 18:59 06:59 Intake Total 209.864 694.766 148.152 Output Total 555 515 265 Balance -345.136 179.766 -116.848 Weight 82.7 kg 82.7 kg 82.7 kg Intake: IV 196 574 135 0.9 KVO @ 10 60 135 105 Piperacillin-Tazobactam 3 100 100 .375 gm In Sodium Chloride 0.9% 100 ml @ 25 mls/hr IVPB Q12HR [facility] Rx #:[id number] Potassium Chloride 10 meq 300 In Water For Injection 1 100ml.bag @ 100 mls/hr IVPB Q1HR [facility] Rx#: [id number] Pressure bag 36 39 30 Intake, IV Titration 13.864 20.766 13.152 Amount Norepinephrine 32 mg In 13.864 20.766 13.152 Sodium Chloride 0.9% 218 ml @ 0.03 MCG/KG/MIN 1. 223 mls/hr IV .Q24H [facility] Rx#:[id number] Oral 100 Output: Urine 555 515 265 Other: Voiding Method Indwelling Catheter Indwelling Catheter Indwelling Catheter # Bowel Movements 1 ABP, PAP, CO, CI - Last Documented Arterial Blood Pressure 107/38 - Labs CBC & Chem 7: 12/19/23 05:20 12/19/23 05:20 Labs: Abnormal Lab Results - Last 24 Hours (Table) 12/18/23 12/18/23 12/18/23 Range/Units 11:28 13:44 16:25 WBC (3.8-10.6) k/uL RBC (4.30-5.90) m/uL Hgb (13.0-17.5) gm/dL Hct (39.0-53.0) % MCHC (31.0-37.0) g/dL RDW (11.5-15.5) % Neutrophils # (1.3-7.7) k/uL Carbon Dioxide (22-30) mmol/L BUN (9-20) mg/dL Creatinine (0.66-1.25) mg/dL Glucose (74-99) mg/dL POC Glucose (mg/dL) 227 H 212 H (70-110) mg/dL Calcium (8.4-10.2) mg/dL Phosphorus 4.7 H (2.5-4.5) mg/dL 12/18/23 12/19/23 12/19/23 Range/Units 20:52 05:20 05:20 WBC 13.3 H (3.8-10.6) k/uL RBC 3.41 L (4.30-5.90) m/uL Hgb 9.8 L (13.0-17.5) gm/dL Hct 31.9 L (39.0-53.0) % MCHC 30.6 L (31.0-37.0) g/dL RDW 16.6 H (11.5-15.5) % Neutrophils # 10.9 H (1.3-7.7) k/uL Carbon Dioxide 19 L (22-30) mmol/L BUN 74 H (9-20) mg/dL Creatinine 2.34 H (0.66-1.25) mg/dL Glucose 240 H (74-99) mg/dL POC Glucose (mg/dL) 185 H (70-110) mg/dL Calcium 7.8 L (8.4-10.2) mg/dL Phosphorus (2.5-4.5) mg/dL 12/19/23 Range/Units 06:21 WBC (3.8-10.6) k/uL RBC (4.30-5.90) m/uL Hgb (13.0-17.5) gm/dL Hct (39.0-53.0) % MCHC (31.0-37.0) g/dL RDW (11.5-15.5) % Neutrophils # (1.3-7.7) k/uL Carbon Dioxide (22-30) mmol/L BUN (9-20) mg/dL Creatinine (0.66-1.25) mg/dL Glucose (74-99) mg/dL POC Glucose (mg/dL) 255 H (70-110) mg/dL Calcium (8.4-10.2) mg/dL Phosphorus (2.5-4.5) mg/dL Microbiology - Last 24 Hours (Table) 12/13/23 16:35 Blood Culture - Final Blood
[2023-12-19 11:08] LABS: Glucose,Whole Blood 202 mg/dL (70-110)
--- NOTE | 2023-12-19 11:21 | P.PN ---
Subjective patient is seen for follow-up for acute kidney injury and chronic kidney disease. Patient has received 2 treatments of hemodialysis on 12/14/2023 and 12/15/2023. Urine outputat 25-35 mL an hour. serum creatinine down to 2.3. Patient is maintained on IV Lasix 60 mg twice a day. Currently on BiPAP. levo fed at 0.03 mcg/kg/m Objective - Vital Signs Vital signs: Vital Signs Temp 96.3 F L 12/19/23 08:00 Pulse 72 12/19/23 10:00 Resp 16 12/19/23 10:00 BP 104/54 12/19/23 10:00 Pulse Ox 95 12/19/23 10:00 FiO2 35 12/19/23 08:13 Intake & Output 12/18/23 12/19/23 12/19/23 18:59 06:59 18:59 Intake Total 694.766 161.152 256.676 Output Total 515 290 105 Balance 179.766 -128.848 151.676 Weight 82.7 kg 82.7 kg Intake: IV 574 148 52 0.9 KVO @ 10 135 115 40 Piperacillin-Tazobactam 3 100 .375 gm In Sodium Chloride 0.9% 100 ml @ 25 mls/hr IVPB Q12HR [facility] Rx #:[id number] Potassium Chloride 10 meq 300 In Water For Injection 1 100ml.bag @ 100 mls/hr IVPB Q1HR [facility] Rx#: [id number] Pressure bag 39 33 12 Intake, IV Titration 20.766 13.152 4.676 Amount Norepinephrine 32 mg In 20.766 13.152 4.676 Sodium Chloride 0.9% 218 ml @ 0.03 MCG/KG/MIN 1. 223 mls/hr IV .Q24H [facility] Rx#:[id number] Oral 100 200 Output: Urine 515 290 105 Other: Voiding Method Indwelling Catheter Indwelling Catheter Indwelling Catheter # Bowel Movements 1 ABP, PAP, CO, CI - Last Documented Arterial Blood Pressure 99/45 - Exam patient is awake Currently on BiPAP Examination of the heart S1 and S2 Examination the lungs bilateral breath sounds are heard Abdomen is soft obese nontender Examination lower extremities shows edema 1+ bilaterally - Labs CBC & Chem 7: 12/19/23 05:20 12/19/23 05:20 Labs: Abnormal Lab Results - Last 24 Hours (Table) 12/18/23 12/18/23 12/18/23 Range/Units 11:28 13:44 16:25 WBC (3.8-10.6) k/uL RBC (4.30-5.90) m/uL Hgb (13.0-17.5) gm/dL Hct (39.0-53.0) % MCHC (31.0-37.0) g/dL RDW (11.5-15.5) % Neutrophils # (1.3-7.7) k/uL Carbon Dioxide (22-30) mmol/L BUN (9-20) mg/dL Creatinine (0.66-1.25) mg/dL Glucose (74-99) mg/dL POC Glucose (mg/dL) 227 H 212 H (70-110) mg/dL Calcium (8.4-10.2) mg/dL Phosphorus 4.7 H (2.5-4.5) mg/dL 12/18/23 12/19/23 12/19/23 Range/Units 20:52 05:20 05:20 WBC 13.3 H (3.8-10.6) k/uL RBC 3.41 L (4.30-5.90) m/uL Hgb 9.8 L (13.0-17.5) gm/dL Hct 31.9 L (39.0-53.0) % MCHC 30.6 L (31.0-37.0) g/dL RDW 16.6 H (11.5-15.5) % Neutrophils # 10.9 H (1.3-7.7) k/uL Carbon Dioxide 19 L (22-30) mmol/L BUN 74 H (9-20) mg/dL Creatinine 2.34 H (0.66-1.25) mg/dL Glucose 240 H (74-99) mg/dL POC Glucose (mg/dL) 185 H (70-110) mg/dL Calcium 7.8 L (8.4-10.2) mg/dL Phosphorus (2.5-4.5) mg/dL 12/19/23 12/19/23 Range/Units 06:21 11:06 WBC (3.8-10.6) k/uL RBC (4.30-5.90) m/uL Hgb (13.0-17.5) gm/dL Hct (39.0-53.0) % MCHC (31.0-37.0) g/dL RDW (11.5-15.5) % Neutrophils # (1.3-7.7) k/uL Carbon Dioxide (22-30) mmol/L BUN (9-20) mg/dL Creatinine (0.66-1.25) mg/dL Glucose (74-99) mg/dL POC Glucose (mg/dL) 255 H 202 H (70-110) mg/dL Calcium (8.4-10.2) mg/dL Phosphorus (2.5-4.5) mg/dL Microbiology - Last 24 Hours (Table) 12/13/23 16:35 Blood Culture - Final Blood Assessment and Plan Assessment: 1. Acute kidney injury secondary to hemodynamic ATN, cardiorenal syndrome and cardiac arrest. Also component of contrast-induced acute kidney injury. Creatinine up to 5.8 dated December 14, 2023. Was oliguric, now nonoliguric. UA benign. No hydronephrosis noted on CAT scan. Creatinine improved to 2.3 today. 2. 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 3. Coronary artery disease status postcardiac catheterization with stent placement on December 10, 2023. Not a candidate for CABG. 4. Metabolic acidosis secondary to acute kidney injury. Better. On oral bicarb. 5. Hyponatremia. Component of poor solute intake. Hypervolemic. Better. 6. Diabetes mellitus. 7. Possible pneumonia on antibiotics. ID following. 8. Volume overload. Improved with ultrafiltration and better urine output. On IV Lasix. 9. Status postcardiac arrest - V-fib and PEA. Plan: continue to hold hemodialysis. Continue with increased dose of IV Lasix Monitor electrolytes Try to wean levo fed Repeat labs in a.m.
--- NOTE | 2023-12-19 12:23 | P.PN ---
Subjective Progress Note Date: 12/19/23 Principal diagnosis: Cardiac arrest x 2 83-year-old male patient who sustained a cardiac yesterday at 2033 and following that the patient was moved to the intensive care unit. The patient was found in asystole. He received CPR based on ACLS protocol. Initial downtime was around 25 to 30 minutes and the patient received 4 rounds of epinephrine and CPR. During the process the patient was also found to be in V-fib and was defibrillated. He was brought into the intensive care unit where he had another code at 2106 and the second code was brief. He was placed on pressors. He is already intubated on mechanical ventilator.. This morning, the patient is on propofol which is running at 50 mcg/kg/min. He is hypotensive and is on norepinephrine 0.18 micrograms per kilogram per minute. He was a difficult IV access. Unable to insert an arterial line. The triple-lumen catheter was inserted in the right femoral vein for hemodynamic support and pressors. At this point in time, he is on assist-control mode at a rate of 20, tidal volume of 400, FiO2 of 70% with a PEEP of 5. The chest x-ray is showing adequate positioning of the ET tube. Orotracheal tube was initially in the right mainstem that was pulled out. No change in the bilateral opacities seen. The patient also has a moderate-sized right-sided pleural effusion along with pulm vascular congestion. Blood work from today shows a WBC count 9.9 with a hemoglobin 10.9 and a platelet count of 147. pH is 7.43 with a pCO2 of 34 and a pO2 of 84. Sodium levels at 127 and potassium levels at 4.3 with a serum bicarb of 17 and the BUN is at 80 with a creatinine of 4.2 as the patient has an acute on top of chronic kidney injury. This could have been also related to contrast as the patient's creatinine was gradually going up following his cardiac procedures. Troponin currently is at 3.07 and it is uptrending again post cardiac arrest. Cardiology was informed of those changes. No plans for any further intervention. In terms of his cardiac history, the patient is followed by Dr. Nelson who presents with symptoms of chest discomfort. He has a known history of CAD underwent stenting of the LAD in September [address] Remy and subsequently was readmitted about a week after with acute thrombosis and underwent angioplasty and thrombectomy. He underwent repeat cardiac catheterization in August and was found to have totally occluded LAD with distal left main disease but was felt to be a poor candidate for any surgical intervention. He presents with symptoms of chest discomfort and dyspnea at rest yesterday He usually has exertional angina pectoris with dyspnea on exertion. His activity is limited. He has evidence of cardiomyopathy with segmental wall motion abnormality consistent with his initial presentation with myocardial infarction.Patient is status attempted catheterization with Dr. Nelson on 12/09/2023. Dr. Nelson had difficulty obtaining access and his cardiac catheteriz ation was canceled. He underwent repeat cardiac catheterization with Dr. Remy with PCI of left main and ramus. Patient was hypotensive during the procedure. Patient was reevaluated today on 12/14/2023, patient remains in the ICU, intubated and mechanically ventilated. Patient was initially admitted on 12/05 with unstable angina, chest pain, severe coronary artery disease, and he was never felt to be a candidate for any surgical intervention. He had chronically occluded ostial LAD and ischemic cardiomyopathy. In addition he had chronic kidney disease and diabetes. As noted above the patient had cardiac arrest x 2 remains intubated and mechanically ventilated, he is on assist-control rate of 20 tidal volume 400 FiO2 50% PEEP of 5 ABG showed a pO2 of 88 pCO2 35 pH of 7.41. Patient may have developed anoxic brain injury, hence neurology will be consulted. Patient required a right brachial arterial line placement today, and this was done uneventfully. Patient will be started today on tube feeding. Looking back at the patient's history, patient clearly has a significant cardiac history, on 12/11, patient had V-fib cardiac arrest x 2 and he had CPR at 1 time it was 20 minutes the second time was 8 minutes of CPR. Obviously we are quite concerned about the possibility of anoxic brain injury. Chest x-ray is showing evidence of pulmonary edema, underlying pneumonia is not entirely ruled out but felt to be less likely patient is requiring norepinephrine at 0.16 mcg/kg/min also requiring propofol at 40 mcg/kg/min, FiO2 was decreased down to 45% today. Renal functioning is continuing to worse, patient is not making much urine, and spite of giving him Lasix and Bumex renal replacement therapy will be initiated today. Dialysis catheter was placed this morning. WBC count today is 10.3 hemoglobin is 9.9 basic metabolic profile is normal except for sodium of 129, BUN is up to 88 creatinine 5.81 blood sugar is 272 Patient was reevaluated today on 12/15/2023, remains in the ICU, intubated and mechanically ventilated he is on assist-control rate of 20 tidal volume 400 FiO2 35% and PEEP of 5 ABG showed a pO2 of 77 pCO2 35 pH of 7.45, patient is undergoing hemodialysis this morning. Remains on amiodarone drip, propofol at 25 mcg/kg/min is also on norepinephrine drip at 0.14 mcg/kg/min remains empirically on Zosyn. Chest x-ray is consistent with diffuse pleuroparenchymal changes/pulmonary edema picture, possible ARDS but I believe that pulmonary edema is really cardiogenic in nature. Sibling has history of ischemic cardiomyopathy. CBC showed WBC of 13.7 hemoglobin 9.8. Basic metabolic profile is normal sodium is 130, BUN is 77 creatinine 4.50, again the patient will have hemodialysis today neurologically, the patient is not responding to any stimuli, being followed by neurology, and I honestly believe the patient has most likely severe anoxic brain injury. Off sedation yesterday, patient was opening his eyes only but no other responses noted Evaluated today on 12/16/2023, remains in the ICU, intubated and mechanically ventilated, on assist-control rate of 20 tidal volume 400 FiO2 35% PEEP of 5 ABG showed a pO2 of 72 pCO2 34 pH of 7.46. Patient is opening eyes only but no responses whatsoever except opening eyes. And no purposeful movement is noted. He is off sedation for the last 24 hours, still requiring norepinephrine at 0.09 mcg/kg/min remains on Zosyn empirically patient has a decent urine output of 50 to 100 cc/h chest x-ray continues to show evidence of pulmonary edema or possible aspiration pneumonia. Patient is being treated for both. I suspect clinically that this is more of pulmonary edema secondary to severe LV dysfun ction. At any rate we will continue to keep the patient off sedation as long as tolerated to fully assess mental status, presently although we could get is patient opening his eyes only. WBC count is 13.2 hemoglobin 9.8. Basic metabolic profile is normal BUN is 57 creatinine 2.93, patient has been on hemodialysis since 12/13, his last dialysis was yesterday. Urine output is picking up slightly. Patient was reevaluated today on 12/17/2023, remains intubated but not sedated, patient is off propofol, patient is awake, follows simple instructions like squeezing hands, wiggling toes, and closing and opening eyes. Seems to be appropriate, hence I plan to give the patient today a trial of pressure support and CPAP. His ABG showed a pO2 of 90 pCO2 37 pH of 7.43, patient has improvement in his urine output, his last hemodialysis was on 12/14, and his urine output seems to be stable, continues to receive tube feeds, still requiring norepinephrine at 0.1 mcg/kg/min remains on Zosyn and remains intermittently on diuretics. Chest x-ray is showing diffuse pleural-parenchymal changes consistent with pulmonary edema and/or pneumonia. Patient is receiving treatment for both the last chest x-ray is showing improvement sputum cultures have been nondiagnostic, blood cultures have been negative. WBC count today is 14.3 hemoglobin is 9.9, basic metabolic profile is normal BUN is 67 creatinine 2.83 steadily improving over the last few days. Reevaluate today on 12/18/2023, patient was extubated yesterday, he is presently on BiPAP 14/5/35%. Patient remains on norepinephrine at 0.04 mcg/kg/min, he is off fluids at KVO, his last hemodialysis was 12/14, urine output is reasonable, patient may not require any more hemodialysis. Patient is to have a swallow evaluation today, remains on Zosyn for presumptive aspiration pneumonia. At any rate patient tolerated the extubation well over the last 24 hours, but he remains marginal and I would like to continue to monitor the patient in the ICU for at least the next 24 to 48 hours. Chest x-ray continues to show diffuse pleural-parenchymal changes, suspicious for pulmonary edema or aspiration pneumonia but improving, CBC is relatively normal basic metabolic profile is normal BUN is 67 creatinine down to 2.51 Reevaluate today on 12/19/23, patient continues to tolerate extubation for the last 2 days, however still on BiPAP 14/5/35%, still requiring norepinephrine at 0.04 mcg/kg/min. Chest x-ray is showing worsening right-sided pleural effusion and right airspace disease, I am recommending more diuretics on this patient, patient remains on antibiotics empirically. The findings on the chest x-ray is a bit concerning, clinically the patient is doing well, and no major setback clinically compared to yesterday WBC count is 13.3 hemoglobin is 9.8 basic metabolic profile is normal BUN is 174 creatinine 2.34 blood cultures and sputum cultures have been negative/nondiagnostic. Objective - Vital Signs Vital signs: Vital Signs Temp 96.3 F L 12/19/23 08:00 Pulse 70 12/19/23 11:47 Resp 16 12/19/23 10:00 BP 104/54 12/19/23 10:00 Pulse Ox 95 12/19/23 10:00 FiO2 35 12/19/23 11:34 Intake & Output 12/18/23 12/19/23 12/19/23 18:59 06:59 18:59 Intake Total 694.766 161.152 256.676 Output Total 515 290 105 Balance 179.766 -128.848 151.676 Weight 82.7 kg 82.7 kg Intake: IV 574 148 52 0.9 KVO @ 10 135 115 40 Piperacillin-Tazobactam 3 100 .375 gm In Sodium Chloride 0.9% 100 ml @ 25 mls/hr IVPB Q12HR [facility] Rx #:[id number] Potassium Chloride 10 meq 300 In Water For Injection 1 100ml.bag @ 100 mls/hr IVPB Q1HR [facility] Rx#: [id number] Pressure bag 39 33 12 Intake, IV Titration 20.766 13.152 4.676 Amount Norepinephrine 32 mg In 20.766 13.152 4.676 Sodium Chloride 0.9% 218 ml @ 0.03 MCG/KG/MIN 1. 223 mls/hr IV .Q24H [facility] Rx#:[id number] Oral 100 200 Output: Urine 515 290 105 Other: Voiding Method Indwelling Catheter Indwelling Catheter Indwelling Catheter # Bowel Movements 1 ABP, PAP, CO, CI - Last Documented Arterial Blood Pressure 99/45 - Exam General: Revealed 83-year-old white male on BiPAP, awake, does not seem to be in any distress Head: Atraumatic, normocephalic Skin: Skin is warm and dry and no rashes or lesions are noted. Eye: Pupils are equal, round and reactive to light, extra-ocular movements are intact; there is normal conjunctiva bilaterally. Ears, nose, mouth and throat: There are moist mucous membranes and no oral lesions. Neck: The neck is supple, there is no tenderness or JVD. Cardiovascular: Distant S1-S2, no S3 gallop. Respiratory: Diminished breath sounds and crackles at the bases specially at the right base Gastrointestinal: Soft, non-distended, non-tender abdomen without masses or organomegaly noted. There is no rebound or guarding present. Bowel sounds are unremarkable. Back: There is no tenderness to palpation in the midline. There is no obvious deformity. Musculoskeletal: Normal ROM, no tenderness, 1+ bipedal edema noted.. There is no calf tenderness Neurological: Awake, continues to follow follow simple instructions, seems to be generally weak. Psychiatric: Normal mood, flat affect, continues to follow simple instructions today - Labs CBC & Chem 7: 12/19/23 05:20 12/19/23 05:20 Labs: Abnormal Lab Results - Last 24 Hours (Table) 12/18/23 12/18/23 12/18/23 Range/Units 13:44 16:25 20:52 WBC (3.8-10.6) k/uL RBC (4.30-5.90) m/uL Hgb (13.0-17.5) gm/dL Hct (39.0-53.0) % MCHC (31.0-37.0) g/dL RDW (11.5-15.5) % Neutrophils # (1.3-7.7) k/uL Carbon Dioxide (22-30) mmol/L BUN (9-20) mg/dL Creatinine (0.66-1.25) mg/dL Glucose (74-99) mg/dL POC Glucose (mg/dL) 212 H 185 H (70-110) mg/dL Calcium (8.4-10.2) mg/dL Phosphorus 4.7 H (2.5-4.5) mg/dL 12/19/23 12/19/23 12/19/23 Range/Units 05:20 05:20 06:21 WBC 13.3 H (3.8-10.6) k/uL RBC 3.41 L (4.30-5.90) m/uL Hgb 9.8 L (13.0-17.5) gm/dL Hct 31.9 L (39.0-53.0) % MCHC 30.6 L (31.0-37.0) g/dL RDW 16.6 H (11.5-15.5) % Neutrophils # 10.9 H (1.3-7.7) k/uL Carbon Dioxide 19 L (22-30) mmol/L BUN 74 H (9-20) mg/dL Creatinine 2.34 H (0.66-1.25) mg/dL Glucose 240 H (74-99) mg/dL POC Glucose (mg/dL) 255 H (70-110) mg/dL Calcium 7.8 L (8.4-10.2) mg/dL Phosphorus (2.5-4.5) mg/dL 12/19/23 Range/Units 11:06 WBC (3.8-10.6) k/uL RBC (4.30-5.90) m/uL Hgb (13.0-17.5) gm/dL Hct (39.0-53.0) % MCHC (31.0-37.0) g/dL RDW (11.5-15.5) % Neutrophils # (1.3-7.7) k/uL Carbon Dioxide (22-30) mmol/L BUN (9-20) mg/dL Creatinine (0.66-1.25) mg/dL Glucose (74-99) mg/dL POC Glucose (mg/dL) 202 H (70-110) mg/dL Calcium (8.4-10.2) mg/dL Phosphorus (2.5-4.5) mg/dL Microbiology - Last 24 Hours (Table) 12/13/23 16:35 Blood Culture - Final Blood Assessment and Plan Assessment: Impression: Cardiac arrest x 2 Severe coronary artery disease and acute non-ST elevation myocardial infarction Acute hypoxic respiratory failure secondary to above Cardiogenic shock Acute systolic congestive heart failure Anoxic encephalopathy Severe ischemic cardiomyopathy and LV dysfunction with ejection fraction of 35 to 40% History of CVA History of medical debility and multiple comorbidities Type 2 diabetes Dyslipidemia Acute kidney injury , on hemodialysis History of underlying coronary artery disease with previous stent of LAD September 22, 2001 3, complicated by acute thrombosis requiring angioplasty and thrombectomy repeat cardiac catheterization 09/12 showed totally occluded LAD with distal left main disease felt to be poor candidate for surgical intervention Commendation: Continue to monitor the patient in the ICU as he seems quite marginal Continue BiPAP and transition eventually to nasal cannula if tolerated. Continue incentive spirometry Continue hemodynamic support, still requiring norepinephrine Increase diuretics and continue antibiotics Continue aspirin and Plavix Swallow evaluation to be done and address possibly feeding, otherwise will recommend a nasogastric tube placement for feeding Continue to hold on dialysis for now as the patient is making good amount of urine, and his renal functioning is improving without hemodialysis Continue GI and DVT prophylaxis Continue empiric antibiotics for presumptive aspiration Continue bronchodilators and updrafts Continue statins Remains critical, Will continue to monitor in the ICU, I am quite concerned about his worsening chest x-ray, hopefully we could avoid reintubation Critical care time is over 30 minutes Time with Patient: Greater than 30
[2023-12-19] MEDS: FUROSEMIDE 100 MG in SODIUM CHLORIDE 0.9% 90 ML IV SCH (12:58)
--- NOTE | 2023-12-19 13:41 | XR ---
EXAMINATION TYPE: XR chest 1V portable DATE OF EXAM: 12/19/2023 COMPARISON: 12/18/2023 INDICATION: Fluid overload, pneumonia TECHNIQUE: Single frontal view of the chest is obtained. FINDINGS: The heart size is upper limits of normal for size. The pulmonary vasculature is prominent. There is a small to moderate right pleural effusion. Bibasilar infiltrates are present. Correlate for atelectasis or pneumonia. Atypical pulmonary edema could be considered. IMPRESSION: 1. Bibasilar infiltrates. Correlate for atelectasis, pneumonia, or atypical pulmonary edema. This is greater on the right than the left. 2. Small to moderate right pleural effusion
--- NOTE | 2023-12-19 16:01 | P.PN ---
Subjective Progress Note Date: 12/19/23 Principal diagnosis: Reason for follow-up is fever possible pneumonia Patient is a 83-year-old male past medical history significant for diabetes mellitus hypertension [place] CVA TIA presenting to the hospital with chest pain shortness of breath also noticed to be febrile prompting this consultation. Patient did have worsening of his respiratory status and also cardiac arrest with the patient has been intubated and transferred to the ICU On today's evaluation that is 12/19/2023,the patient denies any fever or any chills, patient is currently on a BiPAP 35% FiO2, the patient denies chest pain shortness of breath and no significant cough, patient denies abdominal pain, no nausea vomiting or diarrhea. White count of 13.3, creatinine is 2.34 blood and sputum culture has been negative Objective - Vital Signs Vital signs: Vital Signs Temp 98.6 F 12/19/23 12:00 Pulse 74 12/19/23 15:48 Resp 16 12/19/23 15:00 BP 105/55 12/19/23 15:00 Pulse Ox 97 12/19/23 15:00 FiO2 35 12/19/23 14:42 Intake & Output 12/18/23 12/19/23 12/19/23 18:59 06:59 18:59 Intake Total 694.766 161.152 351.676 Output Total 515 290 365 Balance 179.766 -128.848 -13.324 Weight 82.7 kg 82.7 kg Intake: IV 574 148 147 0.9 KVO @ 10 135 115 90 Furosemide 100 mg In 30 Sodium Chloride 0.9% 90 ml @ 10 MG/HR 10 mls/hr IV .Q10H [facility] Rx#: [id number] Piperacillin-Tazobactam 3 100 .375 gm In Sodium Chloride 0.9% 100 ml @ 25 mls/hr IVPB Q12HR [facility] Rx #:[id number] Potassium Chloride 10 meq 300 In Water For Injection 1 100ml.bag @ 100 mls/hr IVPB Q1HR [facility] Rx#: [id number] Pressure bag 39 33 27 Intake, IV Titration 20.766 13.152 4.676 Amount Norepinephrine 32 mg In 20.766 13.152 4.676 Sodium Chloride 0.9% 218 ml @ 0.03 MCG/KG/MIN 1. 223 mls/hr IV .Q24H [facility] Rx#:[id number] Oral 100 200 Output: Urine 515 290 365 Other: Voiding Method Indwelling Catheter Indwelling Catheter Indwelling Catheter # Bowel Movements 1 ABP, PAP, CO, CI - Last Documented Arterial Blood Pressure 114/55 - Exam GENERAL DESCRIPTION: An elderly male lying in bed in no distress RESPIRATORY SYSTEM: Unlabored breathing , decreased breath sounds at bases HEART: S1 S2 regular rate and rhythm , ABDOMEN: Soft , no tenderness EXTREMITIES: No edema feet - Labs CBC & Chem 7: 12/19/23 05:20 12/19/23 05:20 Labs: Abnormal Lab Results - Last 24 Hours (Table) 12/18/23 12/18/23 12/19/23 Range/Units 16:25 20:52 05:20 WBC 13.3 H (3.8-10.6) k/uL RBC 3.41 L (4.30-5.90) m/uL Hgb 9.8 L (13.0-17.5) gm/dL Hct 31.9 L (39.0-53.0) % MCHC 30.6 L (31.0-37.0) g/dL RDW 16.6 H (11.5-15.5) % Neutrophils # 10.9 H (1.3-7.7) k/uL Carbon Dioxide (22-30) mmol/L BUN (9-20) mg/dL Creatinine (0.66-1.25) mg/dL Glucose (74-99) mg/dL POC Glucose (mg/dL) 212 H 185 H (70-110) mg/dL Calcium (8.4-10.2) mg/dL 12/19/23 12/19/23 12/19/23 Range/Units 05:20 06:21 11:06 WBC (3.8-10.6) k/uL RBC (4.30-5.90) m/uL Hgb (13.0-17.5) gm/dL Hct (39.0-53.0) % MCHC (31.0-37.0) g/dL RDW (11.5-15.5) % Neutrophils # (1.3-7.7) k/uL Carbon Dioxide 19 L (22-30) mmol/L BUN 74 H (9-20) mg/dL Creatinine 2.34 H (0.66-1.25) mg/dL Glucose 240 H (74-99) mg/dL POC Glucose (mg/dL) 255 H 202 H (70-110) mg/dL Calcium 7.8 L (8.4-10.2) mg/dL Microbiology - Last 24 Hours (Table) 12/13/23 16:35 Blood Culture - Final Blood Assessment and Plan (1) Fever and chills Current Visit: Yes Status: Acute Code(s): R50.9 - FEVER, UNSPECIFIED SNOMED Code(s): 128096143 (2) Sepsis Current Visit: Yes Status: Acute Code(s): A41.9 - SEPSIS, UNSPECIFIED ORGANISM SNOMED Code(s): 65142225 (3) Aspiration pneumonia Current Visit: Yes Status: Acute Code(s): J69.0 - PNEUMONITIS DUE TO INHALATION OF FOOD AND VOMIT SNOMED Code(s): 102550983 Plan: 1patient presented hospital with chest pain noticed to have a fever on admission and another fever this morning did have predominantly respiratory symptoms with a question of possible pneumonia versus intra-abdominal pathology, but we did have a negative UA no evidence of any cellulitis or joint swelling 2-patient did have cardiac arrest and admission to the ICU and for possible aspiration, blood and sputum culture so far negative, the patient subsequently has been extubated 3-patient is afebrile, white count slightly up we will monitor currently on Zosyn to continue Dictation was produced using [employer] dictation software. please excuse any grammatical, word or spelling errors. Time with Patient: Less than 30
[2023-12-19 16:23] LABS: Glucose,Whole Blood 178 mg/dL (70-110)
--- NOTE | 2023-12-19 19:54 | P.PN ---
Subjective Progress Note Date: 12/19/23 SUBJECTIVE: Patient is on IV Lasix drip and norepinephrine drip. He continues to be in atrial fibrillation. Yesterday his amiodarone was reduced to 200 mg daily, metoprolol 212.5 mg twice daily. He was extubated day before yesterday on 12/17/2023. He is maintaining his oxygenation on BiPAP support. Currently in sinus rhythm on telemetry with left bundle branch block PHYSICAL EXAMINATION regular pulse Systolic murmur audible 1+ swelling in bilateral lower extremity Abdominal soft Poor inspiratory effort, diminished breath sounds, crackles audible in bilateral lung rivas ASSESSMENT Cardiac arrest x 2 Severe CAD, prior PCI of LAD in September 2022. Repeat cath August 2023 showed totally occluded LAD, with distal left main disease, poor candidate for surgery. Paroxysmal atrial fibrillation Left bundle branch block Cardiogenic shock Severe ischemic cardiomyopathy LVEF 35 to 40% Type 2 diabetes History of CVA Dyslipidemia ZOEY on hemodialysis PLAN Discontinue aspirin. Continue Plavix 75 mg daily. Start Eliquis 2.5 mg twice daily for atrial fibrillation, low-dose because of age and kidney function Continue amiodarone 200 mg daily Continue metoprolol 12.5 mg twice daily Discontinue midodrine Currently on IV Lasix drip and norepinephrine drip. Will continue for now. May consider switching norepinephrine to dobutamine drip tomorrow. Jhon Gonzáles MD, FAC, RPVI Thank you for allowing [facility] to participate in this patient's care. Please contact us in case of any followup questions. Objective - Vital Signs Vital signs: Vital Signs Temp 98.4 F 12/19/23 16:00 Pulse 78 12/19/23 19:39 Resp 17 12/19/23 19:00 BP 106/51 12/19/23 19:00 Pulse Ox 98 12/19/23 19:00 FiO2 35 12/19/23 19:39 Intake & Output 12/19/23 12/19/23 12/20/23 06:59 18:59 06:59 Intake Total 161.152 420.676 23 Output Total 290 470 40 Balance -128.848 -49.324 -17 Weight 82.7 kg Intake: IV 148 216 23 0.9 KVO @ 10 115 120 10 Furosemide 100 mg In 60 10 Sodium Chloride 0.9% 90 ml @ 10 MG/HR 10 mls/hr IV .Q10H [facility] Rx#: [id number] Pressure bag 33 36 3 Intake, IV Titration 13.152 4.676 Amount Norepinephrine 32 mg In 13.152 4.676 Sodium Chloride 0.9% 218 ml @ 0.03 MCG/KG/MIN 1. 223 mls/hr IV .Q24H [facility] Rx#:[id number] Oral 200 Output: Urine 290 470 40 Other: Voiding Method Indwelling Catheter Indwelling Catheter ABP, PAP, CO, CI - Last Documented Arterial Blood Pressure 127/49 - Labs CBC & Chem 7: 12/19/23 05:20 12/19/23 05:20 Labs: Abnormal Lab Results - Last 24 Hours (Table) 12/18/23 12/19/23 12/19/23 Range/Units 20:52 05:20 05:20 WBC 13.3 H (3.8-10.6) k/uL RBC 3.41 L (4.30-5.90) m/uL Hgb 9.8 L (13.0-17.5) gm/dL Hct 31.9 L (39.0-53.0) % MCHC 30.6 L (31.0-37.0) g/dL RDW 16.6 H (11.5-15.5) % Neutrophils # 10.9 H (1.3-7.7) k/uL Carbon Dioxide 19 L (22-30) mmol/L BUN 74 H (9-20) mg/dL Creatinine 2.34 H (0.66-1.25) mg/dL Glucose 240 H (74-99) mg/dL POC Glucose (mg/dL) 185 H (70-110) mg/dL Calcium 7.8 L (8.4-10.2) mg/dL 12/19/23 12/19/23 12/19/23 Range/Units 06:21 11:06 16:21 WBC (3.8-10.6) k/uL RBC (4.30-5.90) m/uL Hgb (13.0-17.5) gm/dL Hct (39.0-53.0) % MCHC (31.0-37.0) g/dL RDW (11.5-15.5) % Neutrophils # (1.3-7.7) k/uL Carbon Dioxide (22-30) mmol/L BUN (9-20) mg/dL Creatinine (0.66-1.25) mg/dL Glucose (74-99) mg/dL POC Glucose (mg/dL) 255 H 202 H 178 H (70-110) mg/dL Calcium (8.4-10.2) mg/dL Microbiology - Last 24 Hours (Table) 12/13/23 16:35 Blood Culture - Final Blood
[2023-12-19] MEDS: APIXABAN 2.5 MG TABLET PO SCH (20:08)
[2023-12-19 20:12] LABS: Glucose,Whole Blood 132 mg/dL (70-110)
[2023-12-20 04:41] LABS: Anisocytosis Slight; Basophils # (A) 0.1 k/uL (0-0.2); Basophils % (A) 1 %; Eosinophils # (A) 0.2 k/uL (0-0.7); Eosinophils % (A) 2 %; HCT 30.6 % (39.0-53.0); HGB 9.7 gm/dL (13.0-17.5); Hypochromasia Slight; Lymphocytes # (A) 0.9 k/uL (1.0-4.8); Lymphocytes % (A) 10 %; MCH 29.3 pg (25.0-35.0); MCHC 31.6 g/dL (31.0-37.0); MCV 92.8 fL (80.0-100.0); Mean Platelet Volume 9.5; Monocytes # (A) 0.4 k/uL (0-1.0); Monocytes % (A) 5 %; Neutrophils # (A) 7.6 k/uL (1.3-7.7); Neutrophils % (A) 81 %; Platelet Count 279 k/uL (150-450); WBC 9.3 k/uL (3.8-10.6)
[2023-12-20 04:52] LABS: Potassium 3.6 mmol/L (3.5-5.1)
[2023-12-20 04:53] LABS: African American GFR (CKD) 27 (>60 ml/min/1.73 sqM); Anion Gap 11 mmol/L; Blood Urea Nitrogen 73 mg/dL (9-20); Calcium 7.9 mg/dL (8.4-10.2); Carbon Dioxide 25 mmol/L (22-30); Chloride 108 mmol/L (98-107); Glucose 104 mg/dL (74-99); Magnesium 2.2 mg/dL (1.6-2.3); Non-African American GFR(CKD) 23 (>60 ml/min/1.73 sqM); Sodium 144 mmol/L (137-145)
[2023-12-20 06:15] LABS: Glucose,Whole Blood 105 mg/dL (70-110)
[2023-12-20] MEDS ORDERED: Potassium Replacement Protocol 1 EACH MISC MISCELLANE PRN (06:54)
[2023-12-20] MEDS: POTASSIUM CHLORIDE 10 MEQ in WATER FOR INJECTION 1 100ML.BAG IVPB SCH (07:08)
[2023-12-20] MEDS: NOREPINEPHRINE 4 MG in SODIUM CHLORIDE 0.9% 250 ML IV SCH (09:56)
--- NOTE | 2023-12-20 10:16 | P.PN ---
Subjective Progress Note Date: 12/20/23 83-year-old male with PMH of CAD, history of CVA, diabetes mellitus, chronic kidney disease, hypertension, BPH, hypothyroidism presents the ED for chest pain. Chest pain woke him up at 3AM. Chest pain mid sternal, described as rumbling, radiating to both arms. Associated symptoms include diaphoresis. Chest pain was relieved by sublingual nitroglycerin. Of note, also reports fevers as high as 101.3F over the past 3 days. No cough, rash, urinary or bowel symptoms. In the ED, he underwent extensive evaluation. BP 98/61, HR 84, RR 20, T 102.6F, 100% on 1 LNC. CBC, coag panel and CMP was done significant for lymphocyte count of 0.5, sodium 1:30, bicarb 18, BUN 34, creatinine 1.8, glucose 184, calcium 8.2, alk phos 167. Magnesium 2.2. Troponin 0.028. Flu, RSV, COVID-19 negative. EKG showed sinus rhythm with left bundle branch block. Chest x-ray showed small right pleural effusion and pulmonary vascular congestion. Patient is admitted for chest pain, rule out acute coronary syndrome and cardiology consultation. Workup from previous admission was reviewed. Cardiac cath 09/04/23 showed 70-80% distal left main, 100% ostial LAD with collateral, 80-90% ostial PDA, 80% proximal OM1. He has been evaluated by CT surgery in the past deemed to be poor surgical candidate for revascularization. Echocardiogram 09/01/23 showed EF 35-40% with anteroseptal, anterior wall hypokinesia, mild aortic stenosis. His troponins uptrended and he was started on a heparin drip. Cardiology consulted, he underwent cardiac catheterization on 12/08 but was cancelled due to poor vascular access. He underwent repeat cardiac cath on 12/09 and PCI of left main and ramus. His renal function continued to worsen after cardiac cath. CODE BJ was called on 12/11, noted to be in asystole and V-Fib requiring defibril lation, epinephrine, calcium chloride and sodium bicarb. ROSC was achieved and he was transferred to the ICU. He developed asystole again in the ICU requiring epinephrine and sodium bicarb. ROSC was once again achieved. Nephrology consulted, HD catheter placed and HD started on 12/13 and 12/14. Neurology consulted for anoxic encephalopathy, Brain CT (negative for acute pathology) and EEG (severe encephaopathy) ordered. He remained intubated and maintained on Levophed and Zosyn. He was extubated on 12/16 and transitioned to BiPAP. He remains on Levophed. Dobutamine drip added 12/19. Lasix drip started on 12/19. 12/18 Patient was seen and examined. Maintained on BiPAP 14/5 35%. Currently on Levophed at 0.03 mcg/kg/min. Antibiotics include Zosyn (D5). CBC WBC 13.3 Hg 9.8 Hct 31.9. BMP bicarb 19, BUN 74, Cr 2.34, glu 240, Ca 7.8. CXR done today shows pulmonary edema. He is currently receiving Lasix 60 mg IV BID. - 1248 cc fluid balance over the past 24H. 77.111kg to 82.7 kg weight change since admission. 12/19 Patient was seen and examined. Currently on 4L NC. BP remains low at 91/52. Discussed with Dr. Gonzáles, plans to start Dobutamine drip today. Discussed with Dr. Barker, plans to start Lasix drip today. Currently on Levophed at 0.04 mcg/kg/min. Antibiotics include Zosyn (D6). CBC Hg 9.7 Hct 30.6. BMP Cl 108, BUN 73, Cr 2.49, glu 104, Ca 7.9. CXR done today shows improved pulmonary edema. General: no distress, appears at stated age Derm: warm, dry Head: atraumatic, normocephalic, symmetric Eyes: EOMI, no lid lag, anicteric sclera Mouth: no lip lesion, mucus membranes moist Cardiovascular: S1S2 reg, no murmur Lungs: Coarse BS bilateral, no rhonchi, no rales , no accessory muscle use Abdominal: soft, nontender to palpation, no guarding, no appreciable organomegaly Ext: no gross muscle atrophy, no edema, no contractures Neuro: No focal neurologic deficits Psych: Alert and oriented Based on my assessment of this patient, this patient meets a high complexity level of care. Patient has an acute diagnosis of NSTEMI complicated with renal failure, asystole and VFib requiring debrillation currently intubated that poses a threat to life or bodily function. Acute hypoxic respiratory failure: Extubated 12/16. CXR shows diffuse infiltrates concerning pulmonary edema. Initiated on HD on 12/13 and 12/14. Maintained on Zosyn per ID. DuoNeb PRN for SOB/wheezing. Pulmicort 1 INH BID. Lasix drip started 12/19. Cardiogenic shock: Continue Levophed currently at 0.04 mcg/kg/min. Plans to add Dobutamine drip per Dr. Gonzáles. Acute anoxic encephalopathy: Results of Brain CT and EEG as above. Improving. Neurology on board. Sepsis due to aspiration PNA: Maintained on Zosyn 3.375g IV TID (D6). BCx 12/06 negative. Sputum Cx 12/11 and BCx 12/12 negative. ID on board. ZOEY on CKD: Initiated on HD on 12/13 and 12/14. Lasix drip started 12/19. Sodium bicarbonate 650 mg PO BID. Nephrology on board. NSTEMI: Status post PCI of left main and ramus 12/09. ASA 81 mg PO QD. Lipitor 80 mg PO QHS. Plavix 75 mg PO QD. Ranexa 500 mg PO BID. Diabetes mellitus with hyperglycemia: Highest POC glucose 255. ISS. Novolog 6 units TID. Levemir 30 units QD. Accuechecks Q6H. Hypoglycemic precautions. Normocytic anemia: Transfuse if Hg < 7. Resolving: Acute anoxic encephalopathy Resolved: Hyponatremia Chronic conditions: history of CVA, hypertension, BPH, hypothyroidism CODE STATUS: FULL CODE. DVT Prophylaxis: Heparin SQ GI Prophylaxis: Protonix IV Designated medical POA if patient is not able to make medical decisions for themselves: Daughter I have reviewed the following sap consultant notes: ID, Cardiology, Pulmonary, Neurology, Nephrology note. I have reviewed the results of the following tests: CBC. BMP. I have ordered the following tests: CBC. BMP. I have discussed the care of this patient with the following independent historian: RN, plans to hold insulin due to poor appetite today. I have independently interpreted the following test below: CXR I have discussed the management of this patient with the following physician: Dr. Gonzáles, Dr. Barker. Objective - Vital Signs Vital signs: Vital Signs Temp 97.4 F L 12/20/23 08:00 Pulse 79 12/20/23 09:15 Resp 27 H 12/20/23 09:15 BP 91/52 12/20/23 09:15 Pulse Ox 98 12/20/23 09:15 FiO2 35 12/20/23 04:00 Intake & Output 12/19/23 12/20/23 12/20/23 18:59 06:59 18:59 Intake Total 420.676 478.447 484 Output Total 470 475 90 Balance -49.324 3.447 394 Weight 82.7 kg Intake: IV 216 376 266 0.9 KVO @ 10 120 120 20 Furosemide 100 mg In 60 120 30 Sodium Chloride 0.9% 90 ml @ 10 MG/HR 10 mls/hr IV .Q10H [facility] Rx#: [id number] Piperacillin-Tazobactam 3 100 100 .375 gm In Sodium Chloride 0.9% 100 ml @ 25 mls/hr IVPB Q12HR [facility] Rx #:[id number] Potassium Chloride 10 meq 100 In Water For Injection 1 100ml.bag @ 100 mls/hr IVPB Q1H [facility] Rx#: [id number] Pressure bag 36 36 16 Intake, IV Titration 4.676 102.447 100 Amount Furosemide 100 mg In 82.833 100 Sodium Chloride 0.9% 90 ml @ 10 MG/HR 10 mls/hr IV .Q10H [facility] Rx#: [id number] Norepinephrine 32 mg In 4.676 19.614 0 Sodium Chloride 0.9% 218 ml @ 0.03 MCG/KG/MIN 1. 223 mls/hr IV .Q24H [facility] Rx#:[id number] Oral 200 118 Output: Urine 470 475 90 Other: Voiding Method Indwelling Catheter Indwelling Catheter Indwelling Catheter ABP, PAP, CO, CI - Last Documented Arterial Blood Pressure 92/37 - Labs CBC & Chem 7: 12/20/23 04:20 12/20/23 04:20 Labs: Abnormal Lab Results - Last 24 Hours (Table) 12/19/23 12/19/23 12/19/23 Range/Units 11:06 16:21 20:10 RBC (4.30-5.90) m/uL Hgb (13.0-17.5) gm/dL Hct (39.0-53.0) % RDW (11.5-15.5) % Lymphocytes # (1.0-4.8) k/uL Chloride (98-107) mmol/L BUN (9-20) mg/dL Creatinine (0.66-1.25) mg/dL Glucose (74-99) mg/dL POC Glucose (mg/dL) 202 H 178 H 132 H (70-110) mg/dL Calcium (8.4-10.2) mg/dL 12/20/23 12/20/23 Range/Units 04:20 04:20 RBC 3.30 L (4.30-5.90) m/uL Hgb 9.7 L (13.0-17.5) gm/dL Hct 30.6 L (39.0-53.0) % RDW 17.0 H (11.5-15.5) % Lymphocytes # 0.9 L (1.0-4.8) k/uL Chloride 108 H (98-107) mmol/L BUN 73 H (9-20) mg/dL Creatinine 2.49 H (0.66-1.25) mg/dL Glucose 104 H (74-99) mg/dL POC Glucose (mg/dL) (70-110) mg/dL Calcium 7.9 L (8.4-10.2) mg/dL
--- NOTE | 2023-12-20 10:34 | XR ---
EXAMINATION TYPE: XR chest 1V portable DATE OF EXAM: 12/20/2023 COMPARISON: 12/19/2023 INDICATION: Pneumonia TECHNIQUE: Single frontal view of the chest is obtained. FINDINGS: The heart size is normal. The pulmonary vasculature is normal. There is a small pleural effusion present on the right. Azygos fissure is noted. Mild infiltrate is t hrough the right lower lobe mild degree within the retrocardiac region. IMPRESSION: 1. Small right pleural effusion. 2. Bibasilar infiltrates greater on right. Correlate for atelectasis or pneumonia.
[2023-12-20] MEDS: DOBUTamine DRIP 500 MG in DEXTROSE/WATER 1 250ML.BAG IV SCH (10:39)
--- NOTE | 2023-12-20 10:41 | P.PN ---
Subjective patient is seen for follow-up for acute kidney injury and chronic kidney disease. Patient has received 2 treatments of hemodialysis on 12/14/2023 and 12/15/2023. Urine outputat 25-35 mL an hour. serum creatinine down to 2.3. maintained on Lasix drip at 10 mg an hour. started on dobutamine today Currently on BiPAP. levo fed at 0.03 mcg/kg/m Objective - Vital Signs Vital signs: Vital Signs Temp 97.4 F L 12/20/23 08:00 Pulse 93 12/20/23 10:15 Resp 19 12/20/23 10:15 BP 123/72 12/20/23 10:15 Pulse Ox 96 12/20/23 10:15 FiO2 35 12/20/23 04:00 Intake & Output 12/19/23 12/20/23 12/20/23 18:59 06:59 18:59 Intake Total 420.676 478.447 497 Output Total 470 475 95 Balance -49.324 3.447 402 Weight 82.7 kg Intake: IV 216 376 279 0.9 KVO @ 10 120 120 20 Furosemide 100 mg In 60 120 40 Sodium Chloride 0.9% 90 ml @ 10 MG/HR 10 mls/hr IV .Q10H [facility] Rx#: [id number] Piperacillin-Tazobactam 3 100 100 .375 gm In Sodium Chloride 0.9% 100 ml @ 25 mls/hr IVPB Q12HR [facility] Rx #:[id number] Potassium Chloride 10 meq 100 In Water For Injection 1 100ml.bag @ 100 mls/hr IVPB Q1H [facility] Rx#: [id number] Pressure bag 36 36 19 Intake, IV Titration 4.676 102.447 100 Amount Furosemide 100 mg In 82.833 100 Sodium Chloride 0.9% 90 ml @ 10 MG/HR 10 mls/hr IV .Q10H [facility] Rx#: [id number] Norepinephrine 32 mg In 4.676 19.614 0 Sodium Chloride 0.9% 218 ml @ 0.03 MCG/KG/MIN 1. 223 mls/hr IV .Q24H [facility] Rx#:[id number] Oral 200 118 Output: Urine 470 475 95 Other: Voiding Method Indwelling Catheter Indwelling Catheter Indwelling Catheter # Bowel Movements 0 ABP, PAP, CO, CI - Last Documented Arterial Blood Pressure 101/44 - Exam patient is awake Currently on BiPAP Examination of the heart S1 and S2 Examination the lungs bilateral breath sounds are heard Abdomen is soft obese nontender Examination lower extremities shows edema 2+ bilaterally Patient is hard of hearing but moving all 4 extremities. - Labs CBC & Chem 7: 12/20/23 04:20 12/20/23 04:20 Labs: Abnormal Lab Results - Last 24 Hours (Table) 12/19/23 12/19/23 12/19/23 Range/Units 11:06 16:21 20:10 RBC (4.30-5.90) m/uL Hgb (13.0-17.5) gm/dL Hct (39.0-53.0) % RDW (11.5-15.5) % Lymphocytes # (1.0-4.8) k/uL Chloride (98-107) mmol/L BUN (9-20) mg/dL Creatinine (0.66-1.25) mg/dL Glucose (74-99) mg/dL POC Glucose (mg/dL) 202 H 178 H 132 H (70-110) mg/dL Calcium (8.4-10.2) mg/dL 12/20/23 12/20/23 Range/Units 04:20 04:20 RBC 3.30 L (4.30-5.90) m/uL Hgb 9.7 L (13.0-17.5) gm/dL Hct 30.6 L (39.0-53.0) % RDW 17.0 H (11.5-15.5) % Lymphocytes # 0.9 L (1.0-4.8) k/uL Chloride 108 H (98-107) mmol/L BUN 73 H (9-20) mg/dL Creatinine 2.49 H (0.66-1.25) mg/dL Glucose 104 H (74-99) mg/dL POC Glucose (mg/dL) (70-110) mg/dL Calcium 7.9 L (8.4-10.2) mg/dL Assessment and Plan Assessment: 1. Acute kidney injury secondary to hemodynamic ATN, cardiorenal syndrome and cardiac arrest. Also component of contrast-induced acute kidney injury. Creatinine up to 5.8 dated December 14, 2023. Was oliguric, now nonoliguric. UA benign. No hydronephrosis noted on CAT scan. Creatinine at 2.49 today. 2. 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 3. Coronary artery disease status postcardiac catheterization with stent davis mantilla on December 10, 2023. Not a candidate for CABG. 4. Metabolic acidosis secondary to acute kidney injury. Better. On oral bicarb. 5. Hyponatremia. Component of poor solute intake. Hypervolemic. Better. 6. Diabetes mellitus. 7. Possible pneumonia on antibiotics. ID following. 8. Volume overload. Improved with ultrafiltration and better urine output. On IV Lasix. 9. Status postcardiac arrest - V-fib and PEA. Plan: continue Lasix drip Add Zaroxolyn Continue dobutamine Hemodialysis in a.m. if urine output does not increase or renal function worsens. Try to wean levo fed Repeat labs in a.m.
[2023-12-20 11:58] LABS: Glucose,Whole Blood 205 mg/dL (70-110)
--- NOTE | 2023-12-20 12:30 | P.PN ---
Subjective Progress Note Date: 12/20/23 Principal diagnosis: Cardiac arrest x 2 83-year-old male patient who sustained a cardiac yesterday at 2033 and following that the patient was moved to the intensive care unit. The patient was found in asystole. He received CPR based on ACLS protocol. Initial downtime was around 25 to 30 minutes and the patient received 4 rounds of epinephrine and CPR. During the process the patient was also found to be in V-fib and was defibrillated. He was brought into the intensive care unit where he had another code at 2106 and the second code was brief. He was placed on pressors. He is already intubated on mechanical ventilator.. This morning, the patient is on propofol which is running at 50 mcg/kg/min. He is hypotensive and is on norepinephrine 0.18 micrograms per kilogram per minute. He was a difficult IV access. Unable to insert an arterial line. The triple-lumen catheter was inserted in the right femoral vein for hemodynamic support and pressors. At this point in time, he is on assist-control mode at a rate of 20, tidal volume of 400, FiO2 of 70% with a PEEP of 5. The chest x-ray is showing adequate positioning of the ET tube. Orotracheal tube was initially in the right mainstem that was pulled out. No change in the bilateral opacities seen. The patient also has a moderate-sized right-sided pleural effusion along with pulm vascular congestion. Blood work from today shows a WBC count 9.9 with a hemoglobin 10.9 and a platelet count of 147. pH is 7.43 with a pCO2 of 34 and a pO2 of 84. Sodium levels at 127 and potassium levels at 4.3 with a serum bicarb of 17 and the BUN is at 80 with a creatinine of 4.2 as the patient has an acute on top of chronic kidney injury. This could have been also related to contrast as the patient's creatinine was gradually going up following his cardiac procedures. Troponin currently is at 3.07 and it is uptrending again post cardiac arrest. Cardiology was informed of those changes. No plans for any further intervention. In terms of his cardiac history, the patient is followed by Dr. Nelson who presents with symptoms of chest discomfort. He has a known history of CAD underwent stenting of the LAD in September [address] Remy and subsequently was readmitted about a week after with acute thrombosis and underwent angioplasty and thrombectomy. He underwent repeat cardiac catheterization in August and was found to have totally occluded LAD with distal left main disease but was felt to be a poor candidate for any surgical intervention. He presents with symptoms of chest discomfort and dyspnea at rest yesterday He usually has exertional angina pectoris with dyspnea on exertion. His activity is limited. He has evidence of cardiomyopathy with segmental wall motion abnormality consistent with his initial presentation with myocardial infarction.Patient is status attempted catheterization with Dr. Nelson on 12/09/2023. Dr. Nelson had difficulty obtaining access and his cardiac catheteriz ation was canceled. He underwent repeat cardiac catheterization with Dr. Remy with PCI of left main and ramus. Patient was hypotensive during the procedure. Patient was reevaluated today on 12/14/2023, patient remains in the ICU, intubated and mechanically ventilated. Patient was initially admitted on 12/05 with unstable angina, chest pain, severe coronary artery disease, and he was never felt to be a candidate for any surgical intervention. He had chronically occluded ostial LAD and ischemic cardiomyopathy. In addition he had chronic kidney disease and diabetes. As noted above the patient had cardiac arrest x 2 remains intubated and mechanically ventilated, he is on assist-control rate of 20 tidal volume 400 FiO2 50% PEEP of 5 ABG showed a pO2 of 88 pCO2 35 pH of 7.41. Patient may have developed anoxic brain injury, hence neurology will be consulted. Patient required a right brachial arterial line placement today, and this was done uneventfully. Patient will be started today on tube feeding. Looking back at the patient's history, patient clearly has a significant cardiac history, on 12/11, patient had V-fib cardiac arrest x 2 and he had CPR at 1 time it was 20 minutes the second time was 8 minutes of CPR. Obviously we are quite concerned about the possibility of anoxic brain injury. Chest x-ray is showing evidence of pulmonary edema, underlying pneumonia is not entirely ruled out but felt to be less likely patient is requiring norepinephrine at 0.16 mcg/kg/min also requiring propofol at 40 mcg/kg/min, FiO2 was decreased down to 45% today. Renal functioning is continuing to worse, patient is not making much urine, and spite of giving him Lasix and Bumex renal replacement therapy will be initiated today. Dialysis catheter was placed this morning. WBC count today is 10.3 hemoglobin is 9.9 basic metabolic profile is normal except for sodium of 129, BUN is up to 88 creatinine 5.81 blood sugar is 272 Patient was reevaluated today on 12/15/2023, remains in the ICU, intubated and mechanically ventilated he is on assist-control rate of 20 tidal volume 400 FiO2 35% and PEEP of 5 ABG showed a pO2 of 77 pCO2 35 pH of 7.45, patient is undergoing hemodialysis this morning. Remains on amiodarone drip, propofol at 25 mcg/kg/min is also on norepinephrine drip at 0.14 mcg/kg/min remains empirically on Zosyn. Chest x-ray is consistent with diffuse pleuroparenchymal changes/pulmonary edema picture, possible ARDS but I believe that pulmonary edema is really cardiogenic in nature. Sibling has history of ischemic cardiomyopathy. CBC showed WBC of 13.7 hemoglobin 9.8. Basic metabolic profile is normal sodium is 130, BUN is 77 creatinine 4.50, again the patient will have hemodialysis today neurologically, the patient is not responding to any stimuli, being followed by neurology, and I honestly believe the patient has most likely severe anoxic brain injury. Off sedation yesterday, patient was opening his eyes only but no other responses noted Evaluated today on 12/16/2023, remains in the ICU, intubated and mechanically ventilated, on assist-control rate of 20 tidal volume 400 FiO2 35% PEEP of 5 ABG showed a pO2 of 72 pCO2 34 pH of 7.46. Patient is opening eyes only but no responses whatsoever except opening eyes. And no purposeful movement is noted. He is off sedation for the last 24 hours, still requiring norepinephrine at 0.09 mcg/kg/min remains on Zosyn empirically patient has a decent urine output of 50 to 100 cc/h chest x-ray continues to show evidence of pulmonary edema or possible aspiration pneumonia. Patient is being treated for both. I suspect clinically that this is more of pulmonary edema secondary to severe LV dysfun ction. At any rate we will continue to keep the patient off sedation as long as tolerated to fully assess mental status, presently although we could get is patient opening his eyes only. WBC count is 13.2 hemoglobin 9.8. Basic metabolic profile is normal BUN is 57 creatinine 2.93, patient has been on hemodialysis since 12/13, his last dialysis was yesterday. Urine output is picking up slightly. Patient was reevaluated today on 12/17/2023, remains intubated but not sedated, patient is off propofol, patient is awake, follows simple instructions like squeezing hands, wiggling toes, and closing and opening eyes. Seems to be appropriate, hence I plan to give the patient today a trial of pressure support and CPAP. His ABG showed a pO2 of 90 pCO2 37 pH of 7.43, patient has improvement in his urine output, his last hemodialysis was on 12/14, and his urine output seems to be stable, continues to receive tube feeds, still requiring norepinephrine at 0.1 mcg/kg/min remains on Zosyn and remains intermittently on diuretics. Chest x-ray is showing diffuse pleural-parenchymal changes consistent with pulmonary edema and/or pneumonia. Patient is receiving treatment for both the last chest x-ray is showing improvement sputum cultures have been nondiagnostic, blood cultures have been negative. WBC count today is 14.3 hemoglobin is 9.9, basic metabolic profile is normal BUN is 67 creatinine 2.83 steadily improving over the last few days. Reevaluate today on 12/18/2023, patient was extubated yesterday, he is presently on BiPAP 14/5/35%. Patient remains on norepinephrine at 0.04 mcg/kg/min, he is off fluids at KVO, his last hemodialysis was 12/14, urine output is reasonable, patient may not require any more hemodialysis. Patient is to have a swallow evaluation today, remains on Zosyn for presumptive aspiration pneumonia. At any rate patient tolerated the extubation well over the last 24 hours, but he remains marginal and I would like to continue to monitor the patient in the ICU for at least the next 24 to 48 hours. Chest x-ray continues to show diffuse pleural-parenchymal changes, suspicious for pulmonary edema or aspiration pneumonia but improving, CBC is relatively normal basic metabolic profile is normal BUN is 67 creatinine down to 2.51 Reevaluate today on 12/19/23, patient continues to tolerate extubation for the last 2 days, however still on BiPAP 14/5/35%, still requiring norepinephrine at 0.04 mcg/kg/min. Chest x-ray is showing worsening right-sided pleural effusion and right airspace disease, I am recommending more diuretics on this patient, patient remains on antibiotics empirically. The findings on the chest x-ray is a bit concerning, clinically the patient is doing well, and no major setback clinically compared to yesterday WBC count is 13.3 hemoglobin is 9.8 basic metabolic profile is normal BUN is 174 creatinine 2.34 blood cultures and sputum cultures have been negative/nondiagnostic. Patient was today on 12/20/2023, patient was extubated now 3 days ago, continues to tolerate the extubation well. However his overall clinical status remains marginal at best. Patient is not quite ready to be transferred out of the ICU mostly because he is still requiring norepinephrine for low blood pressure, and he is now on Lasix drip for what seems to be a picture of congestive heart failure secondary to ischemic cardiomyopathy and LV dysfunction. His ejection fraction is no more than 25%. Yesterday I recommended Lasix because he was developing significant right-sided pleural effusion and that seems to be improved today. Patient is now on 3 L nasal cannula, intermittently on BiPAP 14/5/35%. Patient had a negative balance of 2580 over the last 24 hours since he was placed on Lasix drip. Today I am recommending dobutamine at 2.5 mcg/kg/ min, on a trial basis considering that the patient has severe LV dysfunction, and may taper the norepinephrine down if he does better with dobutamine. Diet will be advanced, he is now on pured diet. Still concerned about potential aspiration. And this was recommended by speech therapy. Antibiotics salguero patient remains on Zosyn empirically. Chest x-ray continues to show small right-sided pleural effusion and bibasilar infiltrates/atelectasis/pneumonia suspect the findings are also findings of congestive heart failure. Systolic in nature WBC count today is 9.3 hemoglobin 9.7. Basic metabolic profile is normal renal profile is slightly worse today BUN of 73 creatinine 2.49, nonetheless the patient is not oliguric. And he is responding well to Lasix drip Objective - Vital Signs Vital signs: Vital Signs Temp 97.4 F L 12/20/23 08:00 Pulse 93 12/20/23 10:15 Resp 19 12/20/23 10:15 BP 123/72 12/20/23 10:15 Pulse Ox 96 12/20/23 10:15 FiO2 35 12/20/23 11:26 Intake & Output 12/19/23 12/20/23 12/20/23 18:59 06:59 18:59 Intake Total 420.676 478.447 497 Output Total 470 475 95 Balance -49.324 3.447 402 Weight 82.7 kg Intake: IV 216 376 279 0.9 KVO @ 10 120 120 20 Furosemide 100 mg In 60 120 40 Sodium Chloride 0.9% 90 ml @ 10 MG/HR 10 mls/hr IV .Q10H [facility] Rx#: [id number] Piperacillin-Tazobactam 3 100 100 .375 gm In Sodium Chloride 0.9% 100 ml @ 25 mls/hr IVPB Q12HR [facility] Rx #:[id number] Potassium Chloride 10 meq 100 In Water For Injection 1 100ml.bag @ 100 mls/hr IVPB Q1H [facility] Rx#: [id number] Pressure bag 36 36 19 Intake, IV Titration 4.676 102.447 100 Amount Furosemide 100 mg In 82.833 100 Sodium Chloride 0.9% 90 ml @ 10 MG/HR 10 mls/hr IV .Q10H [facility] Rx#: [id number] Norepinephrine 32 mg In 4.676 19.614 0 Sodium Chloride 0.9% 218 ml @ 0.03 MCG/KG/MIN 1. 223 mls/hr IV .Q24H [facility] Rx#:[id number] Oral 200 118 Output: Urine 470 475 95 Other: Voiding Method Indwelling Catheter Indwelling Catheter Indwelling Catheter # Bowel Movements 0 ABP, PAP, CO, CI - Last Documented Arterial Blood Pressure 101/44 - Exam General: Revealed 83-year-old white male on nasal cannula but intermittently on BiPAP 14/5/35% Head: Atraumatic, normocephalic Skin: Skin is warm and dry and no rashes or lesions are noted. Eye: Pupils are equal, round and reactive to light, extra-ocular movements are intact; there is normal conjunctiva bilaterally. Ears, nose, mouth and throat: There are moist mucous membranes and no oral lesions. Neck: The neck is supple, there is no tenderness or JVD. Cardiovascular: Distant S1-S2, no S3 gallop. Respiratory: Diminished breath sounds and crackles at the bases specially at the right base Gastrointestinal: Soft, non-distended, non-tender abdomen without masses or organomegaly noted. No guarding. Back: There is no tenderness to palpation in the midline. There is no obvious d eformity. Musculoskeletal: Normal ROM, no tenderness, 1+ bipedal edema noted.. There is no calf tenderness Neurological: Awake, continues to follow follow simple instructions, remains relatively weak Psychiatric: Normal mood, flat affect, normal mental status - Labs CBC & Chem 7: 12/20/23 04:20 12/20/23 04:20 Labs: Abnormal Lab Results - Last 24 Hours (Table) 12/19/23 12/19/23 12/20/23 Range/Units 16:21 20:10 04:20 RBC 3.30 L (4.30-5.90) m/uL Hgb 9.7 L (13.0-17.5) gm/dL Hct 30.6 L (39.0-53.0) % RDW 17.0 H (11.5-15.5) % Lymphocytes # 0.9 L (1.0-4.8) k/uL Chloride (98-107) mmol/L BUN (9-20) mg/dL Creatinine (0.66-1.25) mg/dL Glucose (74-99) mg/dL POC Glucose (mg/dL) 178 H 132 H (70-110) mg/dL Calcium (8.4-10.2) mg/dL 12/20/23 12/20/23 Range/Units 04:20 11:56 RBC (4.30-5.90) m/uL Hgb (13.0-17.5) gm/dL Hct (39.0-53.0) % RDW (11.5-15.5) % Lymphocytes # (1.0-4.8) k/uL Chloride 108 H (98-107) mmol/L BUN 73 H (9-20) mg/dL Creatinine 2.49 H (0.66-1.25) mg/dL Glucose 104 H (74-99) mg/dL POC Glucose (mg/dL) 205 H (70-110) mg/dL Calcium 7.9 L (8.4-10.2) mg/dL Assessment and Plan Assessment: Impression: Cardiac arrest x 2 Severe coronary artery disease and acute non-ST elevation myocardial infarction Acute hypoxic respiratory failure secondary to above Cardiogenic shock Acute systolic congestive heart failure Anoxic encephalopathy Severe ischemic cardiomyopathy and LV dysfunction with ejection fraction of 35 t o 40% History of CVA History of medical debility and multiple comorbidities Type 2 diabetes Dyslipidemia Acute kidney injury , on hemodialysis History of underlying coronary artery disease with previous stent of LAD September 22, 2001 3, complicated by acute thrombosis requiring angioplasty and thrombe ctomy repeat cardiac catheterization 09/12 showed totally occluded LAD with distal left main disease felt to be poor candidate for surgical intervention Commendation: Continue ICU management Continue Lasix drip and continue norepinephrine, may add dobutamine at 2.5 mcg/kg/min Continue BiPAP and transition eventually to nasal cannula if tolerated. Continue incentive spirometry Continue hemodynamic support, still requiring norepinephrine, will add inotropic support. Continue aspirin and Plavix Pured diet Continue to hold plans on dialysis for now Continue GI and DVT prophylaxis Continue empiric antibiotics for presumptive aspiration/Zosyn Continue bronchodilators and updrafts Continue statins Patient remains critically ill. And I planning to keep him in the ICU for now. Not quite ready for transfer to medical floor. Critical care time is over 30 minutes Time with Patient: Greater than 30
[2023-12-20 15:14] LABS: Glucose,Whole Blood 221 mg/dL (70-110)
[2023-12-20] MEDS: metOLazone 5 MG TAB PO SCH (15:20)
--- NOTE | 2023-12-20 15:41 | P.PN ---
Subjective Progress Note Date: 12/20/23 Principal diagnosis: Reason for follow-up is fever possible pneumonia Patient is a 83-year-old male past medical history significant for diabetes mellitus hypertension [facility] CVA TIA presenting to the hospital with chest pain shortness of breath also noticed to be febrile prompting this consultation. Patient did have worsening of his respiratory status and also cardiac arrest with the patient has been intubated and transferred to the ICU On today's evaluation that is 12/20/2023,the patient remains to be afebrile, patient is currently on BiPAP has been complaining of not getting oxygen however he seems to be satting okay around 96% denies any chest pain or any worsening cough no abdominal pain or any diarrhea reported. Patient white count is 9.3, creatinine is 2.49 Objective - Vital Signs Vital signs: Vital Signs Temp 97.4 F L 12/20/23 08:00 Pulse 99 12/20/23 15:00 Resp 17 12/20/23 15:00 BP 108/83 12/20/23 15:00 Pulse Ox 96 12/20/23 15:00 FiO2 35 12/20/23 15:07 Intake & Output 12/19/23 12/20/23 12/20/23 18:59 06:59 18:59 Intake Total 420.676 478.447 643.462 Output Total 470 475 340 Balance -49.324 3.447 303.462 Weight 82.7 kg Intake: IV 216 376 344 0.9 KVO @ 10 120 120 20 Furosemide 100 mg In 60 120 90 Sodium Chloride 0.9% 90 ml @ 10 MG/HR 10 mls/hr IV .Q10H [facility] Rx#: [id number] Piperacillin-Tazobactam 3 100 100 .375 gm In Sodium Chloride 0.9% 100 ml @ 25 mls/hr IVPB Q12HR [facility] Rx #:[id number] Potassium Chloride 10 meq 100 In Water For Injection 1 100ml.bag @ 100 mls/hr IVPB Q1H [facility] Rx#: [id number] Pressure bag 36 36 34 Intake, IV Titration 4.676 102.447 181.462 Amount Furosemide 100 mg In 82.833 180.667 Sodium Chloride 0.9% 90 ml @ 10 MG/HR 10 mls/hr IV .Q10H [facility] Rx#: [id number] Norepinephrine 32 mg In 4.676 19.614 0.795 Sodium Chloride 0.9% 218 ml @ 0.03 MCG/KG/MIN 1. 223 mls/hr IV .Q24H [facility] Rx#:[id number] Oral 200 118 Output: Urine 470 475 340 Other: Voiding Method Indwelling Catheter Indwelling Catheter Indwelling Catheter # Bowel Movements 0 ABP, PAP, CO, CI - Last Documented Arterial Blood Pressure 107/42 - Exam GENERAL DESCRIPTION: An elderly male lying in bed in no distress RESPIRATORY SYSTEM: Unlabored breathing , decreased breath sounds at bases HEART: S1 S2 regular rate and rhythm , ABDOMEN: Soft , no tenderness EXTREMITIES: No edema feet - Labs CBC & Chem 7: 12/20/23 04:20 12/20/23 04:20 Labs: Abnormal Lab Results - Last 24 Hours (Table) 12/19/23 12/19/23 12/20/23 Range/Units 16:21 20:10 04:20 RBC 3.30 L (4.30-5.90) m/uL Hgb 9.7 L (13.0-17.5) gm/dL Hct 30.6 L (39.0-53.0) % RDW 17.0 H (11.5-15.5) % Lymphocytes # 0.9 L (1.0-4.8) k/uL Chloride (98-107) mmol/L BUN (9-20) mg/dL Creatinine (0.66-1.25) mg/dL Glucose (74-99) mg/dL POC Glucose (mg/dL) 178 H 132 H (70-110) mg/dL Calcium (8.4-10.2) mg/dL 12/20/23 12/20/23 12/20/23 Range/Units 04:20 11:56 15:12 RBC (4.30-5.90) m/uL Hgb (13.0-17.5) gm/dL Hct (39.0-53.0) % RDW (11.5-15.5) % Lymphocytes # (1.0-4.8) k/uL Chloride 108 H (98-107) mmol/L BUN 73 H (9-20) mg/dL Creatinine 2.49 H (0.66-1.25) mg/dL Glucose 104 H (74-99) mg/dL POC Glucose (mg/dL) 205 H 221 H (70-110) mg/dL Calcium 7.9 L (8.4-10.2) mg/dL Assessment and Plan (1) Fever and chills Current Visit: Yes Status: Acute Code(s): R50.9 - FEVER, UNSPECIFIED SNOMED Code(s): 698863298 (2) Sepsis Current Visit: Yes Status: Acute Code(s): A41.9 - SEPSIS, UNSPECIFIED ORGANISM SNOMED Code(s): 13953807 (3) Aspiration pneumonia Current Visit: Yes Status: Acute Code(s): J69.0 - PNEUMONITIS DUE TO INHALATION OF FOOD AND VOMIT SNOMED Code(s): 642361462 Plan: 1patient presented hospital with chest pain noticed to have a fever on admission and another fever this morning did have predominantly respiratory symptoms with a question of possible pneumonia versus intra-abdominal pathology, but we did have a negative UA no evidence of any cellulitis or joint swelling 2-patient did have cardiac arrest and admission to the ICU and for possible aspiration, blood and sputum culture so far negative, the patient subsequently has been extubated 3-patient is afebrile, white count normalized, patient completed course of Zosyn which has been discontinued this morning the patient will be monitored closely off antibiotic at this point Dictation was produced using [employer] dictation software. please excuse any grammatical, word or spelling errors. Time with Patient: Less than 30
[2023-12-20 16:07] LABS: Glucose,Whole Blood 226 mg/dL (70-110)
--- NOTE | 2023-12-20 20:16 | P.PN ---
Subjective Progress Note Date: 12/20/23 SUBJECTIVE: Patient is on IV Lasix drip and norepinephrine drip. Yesterday his amiodarone was reduced to 200 mg daily, metoprolol 212.5 mg twice daily. He was extubated on 12/17/2023. He is maintaining his oxygenation on BiPAP support. December 20, 2023 Examined at bedside. Continues to be on IV Lasix and norepinephrine drip. BP 119/46, heart rate 98 bpm, Hemoglobin 9.7, creatinine 2.49, BUN 73, potassium 3.6, magnesium 2.2 Since on amiodarone, he is maintaining sinus rhythm. PHYSICAL EXAMINATION regular pulse Systolic murmur audible 1+ swelling in bilateral lower extremity Abdominal soft Poor inspiratory effort, diminished breath sounds, crackles audible in bilateral lung rivas ASSESSMENT Cardiac arrest x 2 Severe CAD, prior PCI of LAD in September 2022. Repeat cath August 2023 showed totally occluded LAD, with distal left main disease, poor candidate for surgery. Paroxysmal atrial fibrillation Left bundle branch block Cardiogenic shock Severe ischemic cardiomyopathy LVEF 35 to 40% Type 2 diabetes History of CVA Dyslipidemia ZOEY on hemodialysis PLAN Discontinue aspirin. Continue Plavix 75 mg daily. Start Eliquis 2.5 mg twice daily for atrial fibrillation, low-dose because of age and kidney function Continue amiodarone 200 mg daily Continue metoprolol 12.5 mg twice daily Discontinue midodrine Currently on IV Lasix drip and norepinephrine drip. Will continue for now. May consider switching norepinephrine to dobutamine drip tomorrow. Objective - Vital Signs Vital signs: Vital Signs Temp 97.4 F L 12/20/23 16:00 Pulse 98 12/20/23 19:45 Resp 19 12/20/23 19:45 BP 122/58 12/20/23 17:00 Pulse Ox 96 12/20/23 19:45 FiO2 35 12/20/23 17:00 Intake & Output 12/20/23 12/20/23 12/21/23 06:59 18:59 06:59 Intake Total 478.447 682.462 13 Output Total 475 515 60 Balance 3.447 167.462 -47 Weight 82.7 kg Intake: IV 376 383 13 0.9 KVO @ 10 120 20 Furosemide 100 mg In 120 120 10 Sodium Chloride 0.9% 90 ml @ 10 MG/HR 10 mls/hr IV .Q10H [facility] Rx#: [id number] Piperacillin-Tazobactam 3 100 100 .375 gm In Sodium Chloride 0.9% 100 ml @ 25 mls/hr IVPB Q12HR [facility] Rx #:[id number] Potassium Chloride 10 meq 100 In Water For Injection 1 100ml.bag @ 100 mls/hr IVPB Q1H [facility] Rx#: [id number] Pressure bag 36 43 3 Intake, IV Titration 102.447 181.462 Amount Furosemide 100 mg In 82.833 180.667 Sodium Chloride 0.9% 90 ml @ 10 MG/HR 10 mls/hr IV .Q10H [facility] Rx#: [id number] Norepinephrine 32 mg In 19.614 0.795 Sodium Chloride 0.9% 218 ml @ 0.03 MCG/KG/MIN 1. 223 mls/hr IV .Q24H [facility] Rx#:[id number] Oral 118 Output: Urine 475 515 60 Other: Voiding Method Indwelling Catheter Indwelling Catheter # Bowel Movements 0 ABP, PAP, CO, CI - Last Documented Arterial Blood Pressure 119/46 - Labs CBC & Chem 7: 12/20/23 04:20 12/20/23 04:20 Labs: Abnormal Lab Results - Last 24 Hours (Table) 12/20/23 12/20/23 12/20/23 Range/Units 04:20 04:20 11:56 RBC 3.30 L (4.30-5.90) m/uL Hgb 9.7 L (13.0-17.5) gm/dL Hct 30.6 L (39.0-53.0) % RDW 17.0 H (11.5-15.5) % Lymphocytes # 0.9 L (1.0-4.8) k/uL Chloride 108 H (98-107) mmol/L BUN 73 H (9-20) mg/dL Creatinine 2.49 H (0.66-1.25) mg/dL Glucose 104 H (74-99) mg/dL POC Glucose (mg/dL) 205 H (70-110) mg/dL Calcium 7.9 L (8.4-10.2) mg/dL 12/20/23 12/20/23 Range/Units 15:12 16:06 RBC (4.30-5.90) m/uL Hgb (13.0-17.5) gm/dL Hct (39.0-53.0) % RDW (11.5-15.5) % Lymphocytes # (1.0-4.8) k/uL Chloride (98-107) mmol/L BUN (9-20) mg/dL Creatinine (0.66-1.25) mg/dL Glucose (74-99) mg/dL POC Glucose (mg/dL) 221 H 226 H (70-110) mg/dL Calcium (8.4-10.2) mg/dL
[2023-12-20 21:08] LABS: Glucose,Whole Blood 128 mg/dL (70-110)
[2023-12-21 04:22] LABS: Anisocytosis Slight; Basophils # (A) 0.1 k/uL (0-0.2); Basophils % (A) 1 %; Eosinophils % (A) 1 %; HCT 30.5 % (39.0-53.0); HGB 9.2 gm/dL (13.0-17.5); Hypochromasia Moderate; Lymphocytes # (A) 0.9 k/uL (1.0-4.8); Lymphocytes % (A) 10 %; MCH 28.3 pg (25.0-35.0); MCV 94.5 fL (80.0-100.0); Monocytes # (A) 0.8 k/uL (0-1.0); Monocytes % (A) 9 %; Neutrophils # (A) 6.6 k/uL (1.3-7.7); Neutrophils % (A) 78 %; Platelet Count 257 k/uL (150-450); RBC 3.23 m/uL (4.30-5.90); RDW 17.1 % (11.5-15.5); WBC 8.5 k/uL (3.8-10.6)
[2023-12-21 04:37] LABS: African American GFR (CKD) 27 (>60 ml/min/1.73 sqM); Anion Gap 15 mmol/L; Blood Urea Nitrogen 72 mg/dL (9-20); Calcium 7.9 mg/dL (8.4-10.2); Carbon Dioxide 19 mmol/L (22-30); Chloride 108 mmol/L (98-107); Glucose 197 mg/dL (74-99); Non-African American GFR(CKD) 23 (>60 ml/min/1.73 sqM); Sodium 142 mmol/L (137-145)
[2023-12-21 07:03] LABS: Glucose,Whole Blood 232 mg/dL (70-110)
--- NOTE | 2023-12-21 08:29 | XR ---
EXAMINATION TYPE: XR chest 1V portable DATE OF EXAM: 12/21/2023 5:50 AM CLINICAL INDICATION:Male, 83 years old with history of CHF; [facility] COMPARISON: Chest radiographs from TECHNIQUE: XR chest 1V portable Frontal view of the chest. FINDINGS: Lungs/Pleura: Azygous fissure in the right lung apex. Right-sided airspace opacities with blunting of the costophrenic angles) left. There is no evidence of pleural effusion, focal consolidation, or pne umothorax. Pulmonary vascularity: Unremarkable. Heart/mediastinum: Cardiomediastinal silhouette is enlarged and stable. Musculoskeletal: No acute osseous pathology. Other findings: None IMPRESSION: Similar cardiomegaly with bilateral pleural effusion with associated atelectasis.
--- NOTE | 2023-12-21 11:10 | P.PN ---
Subjective patient is seen for follow-up for acute kidney injury and chronic kidney disease. Patient has received 2 treatments of hemodialysis on 12/14/2023 and 12/15/2023. hemodialysis on hold since 12/15/2023 maintained on Lasix drip started on dobutamine yesterday. Urine output has improved to 100-120 cc/hr. Serum creatinine at 2.49. Objective - Vital Signs Vital signs: Vital Signs Temp 97.7 F 12/21/23 08:00 Pulse 90 12/21/23 10:30 Resp 18 12/21/23 10:30 BP 122/58 12/20/23 17:00 Pulse Ox 97 12/21/23 10:30 FiO2 35 12/21/23 09:45 Intake & Output 12/20/23 12/21/23 12/21/23 18:59 06:59 18:59 Intake Total 682.462 340.434 681.233 Output Total 515 1520 205 Balance 167.462 -1179.566 476.233 Weight 86.6 kg Intake: IV 383 156 39 0.9 KVO @ 10 20 Furosemide 100 mg In 120 120 30 Sodium Chloride 0.9% 90 ml @ 10 MG/HR 10 mls/hr IV .Q10H [facility] Rx#: [id number] Piperacillin-Tazobactam 3 100 .375 gm In Sodium Chloride 0.9% 100 ml @ 25 mls/hr IVPB Q12HR [facility] Rx #:[id number] Potassium Chloride 10 meq 100 In Water For Injection 1 100ml.bag @ 100 mls/hr IVPB Q1H [facility] Rx#: [id number] Pressure bag 43 36 9 Intake, IV Titration 181.462 184.434 242.233 Amount Furosemide 100 mg In 180.667 94 78.667 Sodium Chloride 0.9% 90 ml @ 10 MG/HR 10 mls/hr IV .Q10H [facility] Rx#: [id number] Norepinephrine 32 mg In 0.795 Sodium Chloride 0.9% 218 ml @ 0.03 MCG/KG/MIN 1. 223 mls/hr IV .Q24H [facility] Rx#:[id number] Norepinephrine 4 mg In 90.434 163.566 Sodium Chloride 0.9% 250 ml @ 0.03 MCG/KG/MIN 9. 453 mls/hr IV .Q24H [facility] Rx#:[id number] Oral 118 400 Output: Urine 515 1520 205 Other: Voiding Method Indwelling Catheter Indwelling Catheter # Bowel Movements 0 ABP, PAP, CO, CI - Last Documented Arterial Blood Pressure 118/54 - Exam patient is awake Currently on BiPAP Examination of the heart S1 and S2 Examination the lungs bilateral breath sounds are heard Abdomen is soft obese nontender Examination lower extremities shows edema 1+ bilaterally, decreased Patient is hard of hearing but moving all 4 extremities. - Labs CBC & Chem 7: 12/21/23 04:00 12/21/23 04:00 Labs: Abnormal Lab Results - Last 24 Hours (Table) 12/20/23 12/20/23 12/20/23 Range/Units 11:56 15:12 16:06 RBC (4.30-5.90) m/uL Hgb (13.0-17.5) gm/dL Hct (39.0-53.0) % MCHC (31.0-37.0) g/dL RDW (11.5-15.5) % Lymphocytes # (1.0-4.8) k/uL Chloride (98-107) mmol/L Carbon Dioxide (22-30) mmol/L BUN (9-20) mg/dL Creatinine (0.66-1.25) mg/dL Glucose (74-99) mg/dL POC Glucose (mg/dL) 205 H 221 H 226 H (70-110) mg/dL Calcium (8.4-10.2) mg/dL 12/20/23 12/21/23 12/21/23 Range/Units 21:06 04:00 04:00 RBC 3.23 L (4.30-5.90) m/uL Hgb 9.2 L (13.0-17.5) gm/dL Hct 30.5 L (39.0-53.0) % MCHC 30.0 L (31.0-37.0) g/dL RDW 17.1 H (11.5-15.5) % Lymphocytes # 0.9 L (1.0-4.8) k/uL Chloride 108 H (98-107) mmol/L Carbon Dioxide 19 L (22-30) mmol/L BUN 72 H (9-20) mg/dL Creatinine 2.49 H (0.66-1.25) mg/dL Glucose 197 H (74-99) mg/dL POC Glucose (mg/dL) 128 H (70-110) mg/dL Calcium 7.9 L (8.4-10.2) mg/dL 12/21/23 Range/Units 07:01 RBC (4.30-5.90) m/uL Hgb (13.0-17.5) gm/dL Hct (39.0-53.0) % MCHC (31.0-37.0) g/dL RDW (11.5-15.5) % Lymphocytes # (1.0-4.8) k/uL Chloride (98-107) mmol/L Carbon Dioxide (22-30) mmol/L BUN (9-20) mg/dL Creatinine (0.66-1.25) mg/dL Glucose (74-99) mg/dL POC Glucose (mg/dL) 232 H (70-110) mg/dL Calcium (8.4-10.2) mg/dL Assessment and Plan Assessment: 1. Acute kidney injury secondary to hemodynamic ATN, cardiorenal syndrome and cardiac arrest. Also component of contrast-induced acute kidney injury. Creatinine up to 5.8 dated December 14, 2023. Was oliguric, now nonoliguric. UA benign. No hydronephrosis noted on CAT scan. Creatinine at 2.49 today. 2. 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 3. Coronary artery disease status postcardiac catheterization with stent placement on December 10, 2023. Not a candidate for CABG. 4. Metabolic acidosis secondary to acute kidney injury. Better. On oral bicarb. 5. Hyponatremia. Component of poor solute intake. Hypervolemic. Better. 6. Diabetes mellitus. 7. Possible pneumonia on antibiotics. ID following. 8. Volume overload. Improved with ultrafiltration and better urine output. maintained on Lasix drip and dobutamine 9. Status postcardiac arrest - V-fib and PEA. 10. Cardiomyopathy with EF of 35-40% Plan: continue Lasix drip. Switch to IV push Lasix in a.m. continue Zaroxolyn Continue dobutamine Repeat labs in a.m.
--- NOTE | 2023-12-21 11:25 | P.PN ---
Subjective Progress Note Date: 12/21/23 83-year-old male with PMH of CAD, history of CVA, diabetes mellitus, chronic kidney disease, hypertension, BPH, hypothyroidism presents the ED for chest pain. Chest pain woke him up at 3AM. Chest pain mid sternal, described as rumbling, radiating to both arms. Associated symptoms include diaphoresis. Chest pain was relieved by sublingual nitroglycerin. Of note, also reports fevers as high as 101.3F over the past 3 days. No cough, rash, urinary or bowel symptoms. In the ED, he underwent extensive evaluation. BP 98/61, HR 84, RR 20, T 102.6F, 100% on 1 LNC. CBC, coag panel and CMP was done significant for lymphocyte count of 0.5, sodium 1:30, bicarb 18, BUN 34, creatinine 1.8, glucose 184, calcium 8.2, alk phos 167. Magnesium 2.2. Troponin 0.028. Flu, RSV, COVID-19 negative. EKG showed sinus rhythm with left bundle branch block. Chest x-ray showed small right pleural effusion and pulmonary vascular congestion. Patient is admitted for chest pain, rule out acute coronary syndrome and cardiology consultation. Workup from previous admission was reviewed. Cardiac cath 09/04/23 showed 70-80% distal left main, 100% ostial LAD with collateral, 80-90% ostial PDA, 80% proximal OM1. He has been evaluated by CT surgery in the past deemed to be poor surgical candidate for revascularization. Echocardiogram 09/01/23 showed EF 35-40% with anteroseptal, anterior wall hypokinesia, mild aortic stenosis. His troponins uptrended and he was started on a heparin drip. Cardiology consulted, he underwent cardiac catheterization on 12/08 but was cancelled due to poor vascular access. He underwent repeat cardiac cath on 12/09 and PCI of left main and ramus. His renal function continued to worsen after cardiac cath. CODE BJ was called on 12/11, noted to be in asystole and V-Fib requiring defibril lation, epinephrine, calcium chloride and sodium bicarb. ROSC was achieved and he was transferred to the ICU. He developed asystole again in the ICU requiring epinephrine and sodium bicarb. ROSC was once again achieved. Nephrology consulted, HD catheter placed and HD started on 12/13 and 12/14. Neurology consulted for anoxic encephalopathy, Brain CT (negative for acute pathology) and EEG (severe encephaopathy) ordered. He remained intubated and maintained on Levophed and Zosyn. He was extubated on 12/16 and transitioned to BiPAP. He remains on Levophed. Dobutamine drip added 12/19. Lasix drip started on 12/19. Completed course of Zosyn on 12/19. 12/18 Patient was seen and examined. Maintained on BiPAP 14/5 35%. Currently on Levophed at 0.03 mcg/kg/min. Antibiotics include Zosyn (D5). CBC WBC 13.3 Hg 9.8 Hct 31.9. BMP bicarb 19, BUN 74, Cr 2.34, glu 240, Ca 7.8. CXR done today shows pulmonary edema. He is currently receiving Lasix 60 mg IV BID. - 1248 cc fluid balance over the past 24H. 77.111kg to 82.7 kg weight change since admission. 12/19 Patient was seen and examined. Currently on 4L NC. BP remains low at 91/52. Discussed with Dr. Gonzáles, plans to start Dobutamine drip today. Discussed with Dr. Barker, plans to start Lasix drip today. Currently on Levophed at 0.04 mcg/kg/min. Antibiotics include Zosyn (D6). CBC Hg 9.7 Hct 30.6. BMP Cl 108, BUN 73, Cr 2.49, glu 104, Ca 7.9. CXR done today shows improved pulmonary edema. 12/20 Patient was seen and examined. Maintained on Dobumatine drip at 2.5 mcg/kg/min and Levophed 0.07 mcg/kg/min. He has completed a course of Zosyn on 12/19. Also on Lasix drip at 10 mg/hr. - 1012 cc fluid balance over the past 24H. 77.111kg to 86.6 kg weight change since admission. CBC Hg 9.2 Hct 30.5. BMP Cl 108, bicarb 19, BUN 72, Cr 2.39, glu 197, Ca 7.9. CXR shows persistent pulmonary vascular congestion. General: no distress, appears at stated age Derm: warm, dry Head: atraumatic, normocephalic, symmetric Eyes: EOMI, no lid lag, anicteric sclera Mouth: no lip lesion, mucus membranes moist Cardiovascular: S1S2 reg, no murmur Lungs: Coarse BS bilateral, no rhonchi, no rales , no accessory muscle use Abdominal: soft, nontender to palpation, no guarding, no appreciable organomegaly Ext: no gross muscle atrophy, no edema, no contractures Neuro: No focal neurologic deficits Psych: Alert and oriented Based on my assessment of this patient, this patient meets a high complexity level of care. Patient has an acute diagnosis of NSTEMI complicated with renal failure, asystole and VFib requiring debrillation currently intubated that poses a threat to life or bodily function. Acute hypoxic respiratory failure: Extubated 12/16. CXR shows diffuse infiltrates concerning pulmonary edema. Initiated on HD on 12/13 and 12/14. Maintained on Zosyn per ID. DuoNeb PRN for SOB/wheezing. Pulmicort 1 INH BID. Lasix drip started 12/19 (10 mg/hr). Cardiogenic shock: Continue Levophed currently at 0.07 mcg/kg/min. Dobutamine drip at 2.5 mcg/kg/min. Acute anoxic encephalopathy: Results of Brain CT and EEG as above. Improving. Neurology on board. Sepsis due to aspiration PNA: Completed course of Zosyn 12/19. BCx 12/06 negative. Sputum Cx 12/11 and BCx 12/12 negative. ID on board. ZOEY on CKD: Initiated on HD on 12/13 and 12/14. Lasix drip started 12/19. Sodium bicarbonate 650 mg PO BID. Nephrology on board. NSTEMI: Status post PCI of left main and ramus 12/09. ASA 81 mg PO QD. Lipitor 80 mg PO QHS. Plavix 75 mg PO QD. Ranexa 500 mg PO BID. Diabetes mellitus with hyperglycemia: Highest POC glucose 232. ISS. Novolog 6 units TID. Levemir 30 units QD. Accuechecks Q6H. Hypoglycemic precautions. Normocytic anemia: Transfuse if Hg < 7. Resolving: Acute anoxic encephalopathy Resolved: Hyponatremia Chronic conditions: history of CVA, hypertension, BPH, hypothyroidism CODE STATUS: FULL CODE. DVT Prophylaxis: Eliquis GI Prophylaxis: Protonix IV Designated medical POA if patient is not able to make medical decisions for themselves: Daughter I have reviewed the following home sales consultant notes: ID, Cardiology, Pulmonary, Neurology, Nephrology note. I have reviewed the results of the following tests: CBC. BMP. I have ordered the following tests: CBC. BMP. I have discussed the care of this patient with the following independent historian: I have independently interpreted the following test below: CXR I have discussed the management of this patient with the following physician: Objective - Vital Signs Vital signs: Vital Signs Temp 98.2 F 12/21/23 04:00 Pulse 105 H 12/21/23 07:30 Resp 20 12/21/23 07:30 BP 122/58 12/20/23 17:00 Pulse Ox 95 12/21/23 07:30 FiO2 35 12/21/23 03:40 Intake & Output 12/20/23 12/21/23 12/21/23 18:59 06:59 18:59 Intake Total 682.462 340.434 176.566 Output Total 515 1520 125 Balance 167.462 -1179.566 51.566 Weight 86.6 kg Intake: IV 383 156 13 0.9 KVO @ 10 20 Furosemide 100 mg In 120 120 10 Sodium Chloride 0.9% 90 ml @ 10 MG/HR 10 mls/hr IV .Q10H [facility] Rx#: [id number] Piperacillin-Tazobactam 3 100 .375 gm In Sodium Chloride 0.9% 100 ml @ 25 mls/hr IVPB Q12HR [facility] Rx #:[id number] Potassium Chloride 10 meq 100 In Water For Injection 1 100ml.bag @ 100 mls/hr IVPB Q1H [facility] Rx#: [id number] Pressure bag 43 36 3 Intake, IV Titration 181.462 184.434 163.566 Amount Furosemide 100 mg In 180.667 94 Sodium Chloride 0.9% 90 ml @ 10 MG/HR 10 mls/hr IV .Q10H [facility] Rx#: [id number] Norepinephrine 32 mg In 0.795 Sodium Chloride 0.9% 218 ml @ 0.03 MCG/KG/MIN 1. 223 mls/hr IV .Q24H [facility] Rx#:[id number] Norepinephrine 4 mg In 90.434 163.566 Sodium Chloride 0.9% 250 ml @ 0.03 MCG/KG/MIN 9. 453 mls/hr IV .Q24H [facility] Rx#:[id number] Oral 118 Output: Urine 515 1520 125 Other: Voiding Method Indwelling Catheter Indwelling Catheter # Bowel Movements 0 ABP, PAP, CO, CI - Last Documented Arterial Blood Pressure 123/53 - Labs CBC & Chem 7: 12/21/23 04:00 12/21/23 04:00 Labs: Abnormal Lab Results - Last 24 Hours (Table) 12/20/23 12/20/23 12/20/23 Range/Units 11:56 15:12 16:06 RBC (4.30-5.90) m/uL Hgb (13.0-17.5) gm/dL Hct (39.0-53.0) % MCHC (31.0-37.0) g/dL RDW (11.5-15.5) % Lymphocytes # (1.0-4.8) k/uL Chloride (98-107) mmol/L Carbon Dioxide (22-30) mmol/L BUN (9-20) mg/dL Creatinine (0.66-1.25) mg/dL Glucose (74-99) mg/dL POC Glucose (mg/dL) 205 H 221 H 226 H (70-110) mg/dL Calcium (8.4-10.2) mg/dL 12/20/23 12/21/23 12/21/23 Range/Units 21:06 04:00 04:00 RBC 3.23 L (4.30-5.90) m/uL Hgb 9.2 L (13.0-17.5) gm/dL Hct 30.5 L (39.0-53.0) % MCHC 30.0 L (31.0-37.0) g/dL RDW 17.1 H (11.5-15.5) % Lymphocytes # 0.9 L (1.0-4.8) k/uL Chloride 108 H (98-107) mmol/L Carbon Dioxide 19 L (22-30) mmol/L BUN 72 H (9-20) mg/dL Creatinine 2.49 H (0.66-1.25) mg/dL Glucose 197 H (74-99) mg/dL POC Glucose (mg/dL) 128 H (70-110) mg/dL Calcium 7.9 L (8.4-10.2) mg/dL 12/21/23 Range/Units 07:01 RBC (4.30-5.90) m/uL Hgb (13.0-17.5) gm/dL Hct (39.0-53.0) % MCHC (31.0-37.0) g/dL RDW (11.5-15.5) % Lymphocytes # (1.0-4.8) k/uL Chloride (98-107) mmol/L Carbon Dioxide (22-30) mmol/L BUN (9-20) mg/dL Creatinine (0.66-1.25) mg/dL Glucose (74-99) mg/dL POC Glucose (mg/dL) 232 H (70-110) mg/dL Calcium (8.4-10.2) mg/dL
--- NOTE | 2023-12-21 12:04 | P.PN ---
Subjective Progress Note Date: 12/21/23 83-year-old male patient who sustained a cardiac yesterday at 2033 and following that the patient was moved to the intensive care unit. The patient was found in asystole. He received CPR based on ACLS protocol. Initial downtime was around 25 to 30 minutes and the patient received 4 rounds of epinephrine and CPR. During the process the patient was also found to be in V-fib and was defibrillated. He was brought into the intensive care unit where he had another code at 2106 and the second code was brief. He was placed on pressors. He is already intubated on mechanical ventilator.. This morning, the patient is on propofol which is running at 50 mcg/kg/min. He is hypotensive and is on norepinephrine 0.18 micrograms per kilogram per minute. He was a difficult IV access. Unable to insert an arterial line. The triple-lumen catheter was inserted in the right femoral vein for hemodynamic support and pressors. At this point in time, he is on assist-control mode at a rate of 20, tidal volume of 400, FiO2 of 70% with a PEEP of 5. The chest x-ray is showing adequate positioning of the ET tube. Orotracheal tube was initially in the right mainstem that was pulled out. No change in the bilateral opacities seen. The patient also has a moderate-sized right-sided pleural effusion along with pulm vascular congestion. Blood work from today shows a WBC count 9.9 with a hemoglobin 10.9 and a platelet count of 147. pH is 7.43 with a pCO2 of 34 and a pO2 of 84. Sodium levels at 127 and potassium levels at 4.3 with a serum bicarb of 17 and the BUN is at 80 with a creatinine of 4.2 as the patient has an acute on top of chronic kidney injury. This could have been also related to contrast as the patient's creatinine was gradually going up following his cardiac procedures. Troponin currently is at 3.07 and it is uptrending again post cardiac arrest. Cardiology was informed of those changes. No plans for any further intervention. In terms of his cardiac history, the patient is followed by Dr. Nelson who presents with symptoms of chest discomfort. He has a known history of CAD underwent stenting of the LAD in September [address] Remy and subsequently was readmitted about a week after with acute thrombosis and underwent angioplasty and thrombectomy. He underwent repeat cardiac catheterization in August and was found to have totally occluded LAD with distal left main disease but was felt to be a poor candidate for any surgical intervention. He presents with symptoms of chest discomfort and dyspnea at rest yesterday He usually has exertional angina pectoris with dyspnea on exertion. His activity is limited. He has evidence of cardiomyopathy with segmental wall motion abnormality consistent with his initial presentation with myocardial infarction.Patient is status attempted catheterization with Dr. Nelson on 12/09/2023. Dr. Nelson had difficulty obtaining access and his cardiac catheterization was canceled. He underwent repeat cardiac catheterization with Dr. Remy with PCI of left main and ramus. Patient was hypotensive during the procedure. Patient was reevaluated today on 12/14/2023, patient remains in the ICU, intubated and mechanically ventilated. Patient was initially admitted on 12/05 with unstable angina, chest pain, severe coronary artery disease, and he was never felt to be a candidate for any surgical intervention. He had chronically occluded ostial LAD and ischemic cardiomyopathy. In addition he had chronic kidney disease and diabetes. As noted above the patient had cardiac arrest x 2 remains intubated and mechanically ventilated, he is on assist-control rate of 20 tidal volume 400 FiO2 50% PEEP of 5 ABG showed a pO2 of 88 pCO2 35 pH of 7.41. Patient may have developed anoxic brain injury, hence neurology will be consulted. Patient required a right brachial arterial line placement today, and this was done uneventfully. Patient will be started today on tube feeding. Looking back at the patient's history, patient clearly has a significant cardiac history, on 12/11, patient had V-fib cardiac arrest x 2 and he had CPR at 1 time it was 20 minutes the second time was 8 minutes of CPR. Obviously we are quite concerned about the possibility of anoxic brain injury. Chest x-ray is showing evidence of pulmonary edema, underlying pneumonia is not entirely ruled out but felt to be less likely patient is requiring norepinephrine at 0.16 mcg/kg/min also requiring propofol at 40 mcg/kg/min, FiO2 was decreased down to 45% today. Renal functioning is continuing to worse, patient is not making much urine, and spite of giving him Lasix and Bumex renal replacement therapy will be initiated today. Dialysis catheter was placed this morning. WBC count today is 10.3 hemoglobin is 9.9 basic metabolic profile is normal except for sodium of 129, BUN is up to 88 creatinine 5.81 blood sugar is 272 Patient was reevaluated today on 12/15/2023, remains in the ICU, intubated and mechanically ventilated he is on assist-control rate of 20 tidal volume 400 FiO2 35% and PEEP of 5 ABG showed a pO2 of 77 pCO2 35 pH of 7.45, patient is undergoing hemodialysis this morning. Remains on amiodarone drip, propofol at 25 mcg/kg/min is also on norepinephrine drip at 0.14 mcg/kg/min remains empirically on Zosyn. Chest x-ray is consistent with diffuse pleuroparenchymal changes/pulmonary edema picture, possible ARDS but I believe that pulmonary edema is really cardiogenic in nature. Sibling has history of ischemic cardiomyopathy. CBC showed WBC of 13.7 hemoglobin 9.8. Basic metabolic profile is normal sodium is 130, BUN is 77 creatinine 4.50, again the patient will have hemodialysis today neurologically, the patient is not responding to any stimuli, being followed by neurology, and I honestly believe the patient has most likely severe anoxic brain injury. Off sedation yesterday, patient was opening his eyes only but no other responses noted Evaluated today on 12/16/2023, remains in the ICU, intubated and mechanically ventilated, on assist-control rate of 20 tidal volume 400 FiO2 35% PEEP of 5 ABG showed a pO2 of 72 pCO2 34 pH of 7.46. Patient is opening eyes only but no responses whatsoever except opening eyes. And no purposeful movement is noted. He is off sedation for the last 24 hours, still requiring norepinephrine at 0.09 mcg/kg/min remains on Zosyn empirically patient has a decent urine output of 50 to 100 cc/h chest x-ray continues to show evidence of pulmonary edema or possible aspiration pneumonia. Patient is being treated for both. I suspect clinically that this is more of pulmonary edema secondary to severe LV dysfunction. At any rate we will continue to keep the patient off sedation as long as tolerated to fully assess mental status, presently although we could get is patient opening his eyes only. WBC count is 13.2 hemoglobin 9.8. Basic metabolic profile is normal BUN is 57 creatinine 2.93, patient has been on hemodialysis since 12/13, his last dialysis was yesterday. Urine output is picking up slightly. Patient was reevaluated today on 12/17/2023, remains intubated but not sedated, patient is off propofol, patient is awake, follows simple instructions like squeezing hands, wiggling toes, and closing and opening eyes. Seems to be appropriate, hence I plan to give the patient today a trial of pressure support and CPAP. His ABG showed a pO2 of 90 pCO2 37 pH of 7.43, patient has improvement in his urine output, his last hemodialysis was on 12/14, and his urine output seems to be stable, continues to receive tube feeds, still requiring norepinephrine at 0.1 mcg/kg/min remains on Zosyn and remains intermittently on diuretics. Chest x-ray is showing diffuse pleural-parenchymal changes consistent with pulmonary edema and/or pneumonia. Patient is receiving treatment for both the last chest x-ray is showing improvement sputum cultures have been nondiagnostic, blood cultures have been negative. WBC count today is 14.3 hemoglobin is 9.9, basic metabolic profile is normal BUN is 67 creatinine 2.83 steadily improving over the last few days. Reevaluate today on 12/18/2023, patient was extubated yesterday, he is presently on BiPAP 14/5/35%. Patient remains on norepinephrine at 0.04 mcg/kg/min, he is off fluids at KVO, his last hemodialysis was 12/14, urine output is reasonable, patient may not require any more hemodialysis. Patient is to have a swallow ev aluation today, remains on Zosyn for presumptive aspiration pneumonia. At any rate patient tolerated the extubation well over the last 24 hours, but he remains marginal and I would like to continue to monitor the patient in the ICU for at least the next 24 to 48 hours. Chest x-ray continues to show diffuse pleural-parenchymal changes, suspicious for pulmonary edema or aspiration pneumonia but improving, CBC is relatively normal basic metabolic profile is normal BUN is 67 creatinine down to 2.51 Reevaluate today on 12/19/23, patient continues to tolerate extubation for the last 2 days, however still on BiPAP 14/5/35%, still requiring norepinephrine at 0.04 mcg/kg/min. Chest x-ray is showing worsening right-sided pleural effusion and right airspace disease, I am recommending more diuretics on this patient, patient remains on antibiotics empirically. The findings on the chest x-ray is a bit concerning, clinically the patient is doing well, and no major setback clinically compared to yesterday WBC count is 13.3 hemoglobin is 9.8 basic metabolic profile is normal BUN is 174 creatinine 2.34 blood cultures and sputum cultures have been negative/nondiagnostic. Patient was today on 12/20/2023, patient was extubated now 3 days ago, continues to tolerate the extubation well. However his overall clinical status remains marginal at best. Patient is not quite ready to be transferred out of the ICU mostly because he is still requiring norepinephrine for low blood pressure, and he is now on Lasix drip for what seems to be a picture of congestive heart failure secondary to ischemic cardiomyopathy and LV dysfunction. His ejection fraction is no more than 25%. Yesterday I recommended Lasix because he was developing significant right-sided pleural effusion and that seems to be impr griffin today. Patient is now on 3 L nasal cannula, intermittently on BiPAP 14/5/35%. Patient had a negative balance of 2580 over the last 24 hours since he was placed on Lasix drip. Today I am recommending dobutamine at 2.5 mcg/kg/min, on a trial basis considering that the patient has severe LV dys function, and may taper the norepinephrine down if he does better with dobutamine. Diet will be advanced, he is now on pured diet. Still concerned about potential aspiration. And this was recommended by speech therapy. Antibiotics salguero patient remains on Zosyn empirically. Chest x-ray continues to show small right-sided pleural effusion and bibasilar infiltrates/atelectasis/pneumonia suspect the findings are also findings of congestive heart failure. Systolic in nature WBC count today is 9.3 hemoglobin 9.7. Basic metabolic profile is normal renal profile is slightly worse today BUN of 73 creatinine 2.49, nonetheless the patient is not oliguric. And he is responding well to Lasix drip The patient is seen today December 21, 2023 in follow-up in the intensive care unit. He is currently resting in bed. Awake and alert in no acute distress. He was extubated back on December 17, 2023. He is currently maintaining good O2 saturations in the 90s on 3 L/min per nasal cannula. Chest x-ray shows similar cardiomegaly with bilateral pleural effusion and associated atelectasis. Cultures revealed no growth. Sputum culture revealed no growth. White count 8.5. Hemoglobin 9.2. Platelets 257. Sodium 142. Potassium 4.0. Bicarb 19. BUN 72. Creatinine 2.49. Glucose 197. He is continued on Lasix drip at 10 mg/h. Dobutamine at 2.5 mcg/kg/min. Norepinephrine at 6 mcg/min. He is an ticoagulated with Eliquis. He is currently in a -1 L balance. Objective - Vital Signs Vital signs: Vital Signs Temp 97.7 F 12/21/23 08:00 Pulse 90 12/21/23 11:00 Resp 18 12/21/23 11:00 BP 122/58 12/20/23 17:00 Pulse Ox 96 12/21/23 11:00 FiO2 35 12/21/23 09:45 Intake & Output 12/20/23 12/21/23 12/21/23 18:59 06:59 18:59 Intake Total 682.462 340.434 681.233 Output Total 515 1520 205 Balance 167.462 -1179.566 476.233 Weight 86.6 kg Intake: IV 383 156 39 0.9 KVO @ 10 20 Furosemide 100 mg In 120 120 30 Sodium Chloride 0.9% 90 ml @ 10 MG/HR 10 mls/hr IV .Q10H [facility] Rx#: [id number] Piperacillin-Tazobactam 3 100 .375 gm In Sodium Chloride 0.9% 100 ml @ 25 mls/hr IVPB Q12HR [facility] Rx #:[id number] Potassium Chloride 10 meq 100 In Water For Injection 1 100ml.bag @ 100 mls/hr IVPB Q1H [facility] Rx#: [id number] Pressure bag 43 36 9 Intake, IV Titration 181.462 184.434 242.233 Amount Furosemide 100 mg In 180.667 94 78.667 Sodium Chloride 0.9% 90 ml @ 10 MG/HR 10 mls/hr IV .Q10H [facility] Rx#: [id number] Norepinephrine 32 mg In 0.795 Sodium Chloride 0.9% 218 ml @ 0.03 MCG/KG/MIN 1. 223 mls/hr IV .Q24H [facility] Rx#:[id number] Norepinephrine 4 mg In 90.434 163.566 Sodium Chloride 0.9% 250 ml @ 0.03 MCG/KG/MIN 9. 453 mls/hr IV .Q24H [facility] Rx#:[id number] Oral 118 400 Output: Urine 515 1520 205 Other: Voiding Method Indwelling Catheter Indwelling Catheter Indwelling Catheter # Bowel Movements 0 ABP, PAP, CO, CI - Last Documented Arterial Blood Pressure 119/52 - Exam GENERAL EXAM: Alert, weak, 83-year-old male patient, on 3 L nasal cannula, comfortable in no apparent distress. HEAD: Normocephalic. EYES: Normal reaction of pupils, equal size. NOSE: Clear with pink turbinates. THROAT: No erythema or exudates. NECK: No masses, no JVD. CHEST: No chest wall deformity. LUNGS: Equal air entry with no crackles in the bilateral bases. CVS: S1 and S2 normal with no audible murmur, regular rhythm. ABDOMEN: No hepatosplenomegaly, normal bowel sounds, no guarding or rigidity. SPINE: No scoliosis or deformity SKIN: No rashes CENTRAL NERVOUS SYSTEM: No focal deficits, tone is normal in all 4 extremities. EXTREMITIES: There is 1+ peripheral edema. No clubbing, no cyanosis. Peripheral pulses are intact. - Labs CBC & Chem 7: 12/21/23 04:00 12/21/23 04:00 Labs: Abnormal Lab Results - Last 24 Hours (Table) 12/20/23 12/20/23 12/20/23 Range/Units 11:56 15:12 16:06 RBC (4.30-5.90) m/uL Hgb (13.0-17.5) gm/dL Hct (39.0-53.0) % MCHC (31.0-37.0) g/dL RDW (11.5-15.5) % Lymphocytes # (1.0-4.8) k/uL Chloride (98-107) mmol/L Carbon Dioxide (22-30) mmol/L BUN (9-20) mg/dL Creatinine (0.66-1.25) mg/dL Glucose (74-99) mg/dL POC Glucose (mg/dL) 205 H 221 H 226 H (70-110) mg/dL Calcium (8.4-10.2) mg/dL 12/20/23 12/21/23 12/21/23 Range/Units 21:06 04:00 04:00 RBC 3.23 L (4.30-5.90) m/uL Hgb 9.2 L (13.0-17.5) gm/dL Hct 30.5 L (39.0-53.0) % MCHC 30.0 L (31.0-37.0) g/dL RDW 17.1 H (11.5-15.5) % Lymphocytes # 0.9 L (1.0-4.8) k/uL Chloride 108 H (98-107) mmol/L Carbon Dioxide 19 L (22-30) mmol/L BUN 72 H (9-20) mg/dL Creatinine 2.49 H (0.66-1.25) mg/dL Glucose 197 H (74-99) mg/dL POC Glucose (mg/dL) 128 H (70-110) mg/dL Calcium 7.9 L (8.4-10.2) mg/dL 12/21/23 Range/Units 07:01 RBC (4.30-5.90) m/uL Hgb (13.0-17.5) gm/dL Hct (39.0-53.0) % MCHC (31.0-37.0) g/dL RDW (11.5-15.5) % Lymphocytes # (1.0-4.8) k/uL Chloride (98-107) mmol/L Carbon Dioxide (22-30) mmol/L BUN (9-20) mg/dL Creatinine (0.66-1.25) mg/dL Glucose (74-99) mg/dL POC Glucose (mg/dL) 232 H (70-110) mg/dL Calcium (8.4-10.2) mg/dL Assessment and Plan Assessment: Cardiac arrest x 2 Severe coronary artery disease and acute non-ST elevation myocardial infarction Acute hypoxic respiratory failure secondary to above Cardiogenic shock Acute systolic congestive heart failure Anoxic encephalopathy Severe ischemic cardiomyopathy and LV dysfunction with ejection fraction of 35 to 40% History of CVA History of medical debility and multiple comorbidities Type 2 diabetes Dyslipidemia Acute kidney injury, on hemodialysis History of underlying coronary artery disease with previous stent of LAD September 22, 2001 3, complicated by acute thrombosis requiring angioplasty and thrombectomy repeat cardiac catheterization 09/12 showed totally occluded LAD with distal left main disease felt to be poor candidate for surgical intervention Plan: The patient was seen and evaluated Chest x-ray, labs and medications reviewed Continued on Lasix drip Continued on dobutamine drip Continued on norepinephrine Stable and on 3 L nasal cannula Overall prognosis is quite guarded Continue to monitor closely here in the intensive care unit I have personally seen and examined the patient, performed the documentation and the assessment and plan as written. Number of minutes spent on the visit: 10.
[2023-12-21 12:14] LABS: Glucose,Whole Blood 271 mg/dL (70-110)
--- NOTE | 2023-12-21 15:20 | P.PN ---
Subjective Progress Note Date: 12/21/23 Principal diagnosis: Reason for follow-up is fever possible pneumonia Patient is a 83-year-old male past medical history significant for diabetes mellitus hypertension [place] CVA TIA presenting to the hospital with chest pain shortness of breath also noticed to be febrile prompting this consultation. Patient did have worsening of his respiratory status and also cardiac arrest with the patient has been intubated and transferred to the ICU On today's evaluation that is 12/21/2023, the patient continues to be afebrile, the patient is on BiPAP slightly lethargic and cannot provide any history no pressor support and no other changes reported. Patient white count is normal 8.5, creatinine is 2.49 blood and sputum culture has been negative Objective - Vital Signs Vital signs: Vital Signs Temp 97.7 F 12/21/23 08:00 Pulse 97 12/21/23 12:21 Resp 18 12/21/23 11:00 BP 122/58 12/20/23 17:00 Pulse Ox 96 12/21/23 11:00 FiO2 35 12/21/23 12:02 Intake & Output 12/20/23 12/21/23 12/21/23 18:59 06:59 18:59 Intake Total 682.462 340.434 681.233 Output Total 515 1520 205 Balance 167.462 -1179.566 476.233 Weight 86.6 kg Intake: IV 383 156 39 0.9 KVO @ 10 20 Furosemide 100 mg In 120 120 30 Sodium Chloride 0.9% 90 ml @ 10 MG/HR 10 mls/hr IV .Q10H [facility] Rx#: [id number] Piperacillin-Tazobactam 3 100 .375 gm In Sodium Chloride 0.9% 100 ml @ 25 mls/hr IVPB Q12HR [facility] Rx #:[id number] Potassium Chloride 10 meq 100 In Water For Injection 1 100ml.bag @ 100 mls/hr IVPB Q1H [facility] Rx#: [id number] Pressure bag 43 36 9 Intake, IV Titration 181.462 184.434 242.233 Amount Furosemide 100 mg In 180.667 94 78.667 Sodium Chloride 0.9% 90 ml @ 10 MG/HR 10 mls/hr IV .Q10H [facility] Rx#: [id number] Norepinephrine 32 mg In 0.795 Sodium Chloride 0.9% 218 ml @ 0.03 MCG/KG/MIN 1. 223 mls/hr IV .Q24H [facility] Rx#:[id number] Norepinephrine 4 mg In 90.434 163.566 Sodium Chloride 0.9% 250 ml @ 0.03 MCG/KG/MIN 9. 453 mls/hr IV .Q24H [facility] Rx#:[id number] Oral 118 400 Output: Urine 515 1520 205 Other: Voiding Method Indwelling Catheter Indwelling Catheter Indwelling Catheter # Bowel Movements 0 ABP, PAP, CO, CI - Last Documented Arterial Blood Pressure 119/52 - Exam GENERAL DESCRIPTION: An elderly male lying in bed in no distress RESPIRATORY SYSTEM: Unlabored breathing , decreased breath sounds at bases HEART: S1 S2 regular rate and rhythm , ABDOMEN: Soft , no tenderness EXTREMITIES: No edema feet - Labs CBC & Chem 7: 12/21/23 04:00 12/21/23 04:00 Labs: Abnormal Lab Results - Last 24 Hours (Table) 12/20/23 12/20/23 12/20/23 Range/Units 15:12 16:06 21:06 RBC (4.30-5.90) m/uL Hgb (13.0-17.5) gm/dL Hct (39.0-53.0) % MCHC (31.0-37.0) g/dL RDW (11.5-15.5) % Lymphocytes # (1.0-4.8) k/uL Chloride (98-107) mmol/L Carbon Dioxide (22-30) mmol/L BUN (9-20) mg/dL Creatinine (0.66-1.25) mg/dL Glucose (74-99) mg/dL POC Glucose (mg/dL) 221 H 226 H 128 H (70-110) mg/dL Calcium (8.4-10.2) mg/dL 12/21/23 12/21/23 12/21/23 Range/Units 04:00 04:00 07:01 RBC 3.23 L (4.30-5.90) m/uL Hgb 9.2 L (13.0-17.5) gm/dL Hct 30.5 L (39.0-53.0) % MCHC 30.0 L (31.0-37.0) g/dL RDW 17.1 H (11.5-15.5) % Lymphocytes # 0.9 L (1.0-4.8) k/uL Chloride 108 H (98-107) mmol/L Carbon Dioxide 19 L (22-30) mmol/L BUN 72 H (9-20) mg/dL Creatinine 2.49 H (0.66-1.25) mg/dL Glucose 197 H (74-99) mg/dL POC Glucose (mg/dL) 232 H (70-110) mg/dL Calcium 7.9 L (8.4-10.2) mg/dL 12/21/23 Range/Units 12:13 RBC (4.30-5.90) m/uL Hgb (13.0-17.5) gm/dL Hct (39.0-53.0) % MCHC (31.0-37.0) g/dL RDW (11.5-15.5) % Lymphocytes # (1.0-4.8) k/uL Chloride (98-107) mmol/L Carbon Dioxide (22-30) mmol/L BUN (9-20) mg/dL Creatinine (0.66-1.25) mg/dL Glucose (74-99) mg/dL POC Glucose (mg/dL) 271 H (70-110) mg/dL Calcium (8.4-10.2) mg/dL Assessment and Plan (1) Fever and chills Current Visit: Yes Status: Acute Code(s): R50.9 - FEVER, UNSPECIFIED SNOMED Code(s): 690776795 (2) Sepsis Current Visit: Yes Status: Acute Code(s): A41.9 - SEPSIS, UNSPECIFIED ORGANISM SNOMED Code(s): 15365993 (3) Aspiration pneumonia Current Visit: Yes Status: Acute Code(s): J69.0 - PNEUMONITIS DUE TO INHALATION OF FOOD AND VOMIT SNOMED Code(s): 440060436 Plan: 1patient presented hospital with chest pain noticed to have a fever on admission and another fever this morning did have predominantly respiratory symptoms with a question of possible pneumonia versus intra-abdominal pathology, but we did have a negative UA no evidence of any cellulitis or joint swelling 2-patient did have cardiac arrest and admission to the ICU and for possible aspiration, blood and sputum culture so far negative, the patient subsequently has been extubated 3-patient is afebrile, white count normalized, patient has completed course of Zosyn and apparently doing well off antibiotic therapy for the last 24 hours and we will monitor closely off antibiotic Dictation was produced using [employer] dictation software. please excuse any grammatical, word or spelling errors. Time with Patient: Less than 30
[2023-12-21 17:30] LABS: Glucose,Whole Blood 187 mg/dL (70-110)
[2023-12-21 20:00] LABS: Glucose,Whole Blood 181 mg/dL (70-110)
--- NOTE | 2023-12-21 22:05 | PN ---
PROGRESS NOTE Gregg is an 83-year-old gentleman who has been in the hospital since December 05. Had cardiac catheterization and angioplasty of left main with circumflex coronary artery. Subsequently, his clinical course was complicated by hypotension and renal failure and respiratory failure. At the time of my evaluation, he had been extubated. He remains in sinus rhythm. OBJECTIVE: VITAL SIGNS: Blood pressure is 118/54, respiratory rate is 18. CHEST: Exam reveals diminished air entry at the bases. HEART: Exam reveals first and second heart sounds. No gallop. EXTREMITIES: Reveal mild edema. Peripheral pulses are felt. LABORATORY DATA: Show a hemoglobin of 9.2, platelet count is 257. Potassium is 4, BUN is 72, creatinine is 2.4. MEDICATIONS: Current medications include, 1. Amiodarone. 2. Eliquis. 3. Plavix. 4. Zaroxolyn. 5. Lopressor. 6. Levophed. 7. Ranexa. 8. Dobutamine. ASSESSMENT: 1. Coronary artery disease, status post angioplasty of the left main with circumflex coronary artery. 2. Ischemic cardiomyopathy. 3. Chronic renal failure. 4. Chronic systolic heart failure. 5. Hypotension. PLAN: I will continue the patient on Lasix drip, dobutamine, Levophed, and rest of his medications. PROGNOSIS: Guarded. MMODL / IJN: [id number] /
[2023-12-22 04:21] LABS: Anisocytosis Slight; Basophils % (A) 0 %; Eosinophils % (A) 0 %; HCT 31.6 % (39.0-53.0); HGB 9.9 gm/dL (13.0-17.5); Hypochromasia Moderate; Lymphocytes # (A) 0.9 k/uL (1.0-4.8); Lymphocytes % (A) 7 %; MCH 29.5 pg (25.0-35.0); MCHC 31.3 g/dL (31.0-37.0); Mean Platelet Volume 9.3; Monocytes # (A) 0.4 k/uL (0-1.0); Monocytes % (A) 3 %; Neutrophils # (A) 10.3 k/uL (1.3-7.7); Neutrophils % (A) 88 %; Platelet Count 334 k/uL (150-450); RBC 3.36 m/uL (4.30-5.90); RDW 17.5 % (11.5-15.5); WBC 11.7 k/uL (3.8-10.6)
[2023-12-22 04:42] LABS: African American GFR (CKD) 27 (>60 ml/min/1.73 sqM); Anion Gap 12 mmol/L; Blood Urea Nitrogen 81 mg/dL (9-20); Calcium 8.2 mg/dL (8.4-10.2); Carbon Dioxide 23 mmol/L (22-30); Chloride 108 mmol/L (98-107); Glucose 180 mg/dL (74-99); Non-African American GFR(CKD) 24 (>60 ml/min/1.73 sqM); Potassium 3.8 mmol/L (3.5-5.1); Sodium 143 mmol/L (137-145)
[2023-12-22 06:39] LABS: Glucose,Whole Blood 192 mg/dL (70-110)
--- NOTE | 2023-12-22 08:14 | XR ---
EXAMINATION TYPE: XR chest 1V portable DATE OF EXAM: 12/22/2023 6:15 AM CLINICAL INDICATION:Male, 83 years old with history of CHF; COMPARISON: Chest radiographs from 12/21/2023 TECHNIQUE: XR chest 1V portable Frontal view of the chest. FINDINGS: Lungs/Pleura: No evidence of focal consolidation or pneumothorax. Blunting of the costophrenic angles is present. Pulmonary vascularity: Pulmonary vascular congestion. Heart/mediastinum: Cardiomediastinal silhouette is enlarged and stable. Musculoskeletal: No acute osseous pathology. IMPRESSION: Cardiomegaly, pulmonary vascular congestion and bilateral pleural effusions. Correlate with BNP for c ongestive heart failure.
[2023-12-22] MEDS: ONDANSETRON 4 MG/2 ML VIAL IVP PRN (09:50)
--- NOTE | 2023-12-22 10:41 | P.PN ---
Subjective Progress Note Date: 12/22/23 83-year-old male with PMH of CAD, history of CVA, diabetes mellitus, chronic kidney disease, hypertension, BPH, hypothyroidism presents the ED for chest pain. Chest pain woke him up at 3AM. Chest pain mid sternal, described as rumbling, radiating to both arms. Associated symptoms include diaphoresis. Chest pain was relieved by sublingual nitroglycerin. Of note, also reports fevers as high as 101.3F over the past 3 days. No cough, rash, urinary or bowel symptoms. In the ED, he underwent extensive evaluation. BP 98/61, HR 84, RR 20, T 102.6F, 100% on 1 LNC. CBC, coag panel and CMP was done significant for lymphocyte count of 0.5, sodium 1:30, bicarb 18, BUN 34, creatinine 1.8, glucose 184, calcium 8.2, alk phos 167. Magnesium 2.2. Troponin 0.028. Flu, RSV, COVID-19 negative. EKG showed sinus rhythm with left bundle branch block. Chest x-ray showed small right pleural effusion and pulmonary vascular congestion. Patient is admitted for chest pain, rule out acute coronary syndrome and cardiology consultation. Workup from previous admission was reviewed. Cardiac cath 09/04/23 showed 70-80% distal left main, 100% ostial LAD with collateral, 80-90% ostial PDA, 80% proximal OM1. He has been evaluated by CT surgery in the past deemed to be poor surgical candidate for revascularization. Echocardiogram 09/01/23 showed EF 35-40% with anteroseptal, anterior wall hypokinesia, mild aortic stenosis. His troponins uptrended and he was started on a heparin drip. Cardiology consulted, he underwent cardiac catheterization on 12/08 but was cancelled due to poor vascular access. He underwent repeat cardiac cath on 12/09 and PCI of left main and ramus. His renal function continued to worsen after cardiac cath. CODE BJ was called on 12/11, noted to be in asystole and V-Fib requiring defibril lation, epinephrine, calcium chloride and sodium bicarb. ROSC was achieved and he was transferred to the ICU. He developed asystole again in the ICU requiring epinephrine and sodium bicarb. ROSC was once again achieved. Nephrology consulted, HD catheter placed and HD started on 12/13 and 12/14. Neurology consulted for anoxic encephalopathy, Brain CT (negative for acute pathology) and EEG (severe encephaopathy) ordered. He remained intubated and maintained on Levophed and Zosyn. He was extubated on 12/16 and transitioned to BiPAP. He remains on Levophed. Dobutamine drip added 12/19. Lasix drip started on 12/19. Completed course of Zosyn on 12/19. 12/18 Patient was seen and examined. Maintained on BiPAP 14/5 35%. Currently on Levophed at 0.03 mcg/kg/min. Antibiotics include Zosyn (D5). CBC WBC 13.3 Hg 9.8 Hct 31.9. BMP bicarb 19, BUN 74, Cr 2.34, glu 240, Ca 7.8. CXR done today shows pulmonary edema. He is currently receiving Lasix 60 mg IV BID. - 1248 cc fluid balance over the past 24H. 77.111kg to 82.7 kg weight change since admission. 12/19 Patient was seen and examined. Currently on 4L NC. BP remains low at 91/52. Discussed with Dr. Gonzáles, plans to start Dobutamine drip today. Discussed with Dr. Barker, plans to start Lasix drip today. Currently on Levophed at 0.04 mcg/kg/min. Antibiotics include Zosyn (D6). CBC Hg 9.7 Hct 30.6. BMP Cl 108, BUN 73, Cr 2.49, glu 104, Ca 7.9. CXR done today shows improved pulmonary edema. 12/20 Patient was seen and examined. Maintained on Dobumatine drip at 2.5 mcg/kg/min and Levophed 0.07 mcg/kg/min. He has completed a course of Zosyn on 12/19. Also on Lasix drip at 10 mg/hr. - 1012 cc fluid balance over the past 24H. 77.111kg to 86.6 kg weight change since admission. CBC Hg 9.2 Hct 30.5. BMP Cl 108, bicarb 19, BUN 72, Cr 2.39, glu 197, Ca 7.9. CXR shows persistent pulmonary vascular congestion. 12/21 Patient was seen and examined. Maintained on Dobumatine drip at 2.5 mcg/kg/min and Levophed 0.08 mcg/kg/min. Also on Lasix drip at 10 mg/hr. 854 cc fluid balance over the past 24H. 77.111kg to 86.4 kg weight change since admission. CBC WBC 11.7 Hg 9.9 Hct 31.6. BMP Cl 108, BUN 81, Cr 2.47, glu 180, Ca 8.2. CXR shows persistent/worsened pulmonary vascular congestion. General: no distress, appears at stated age Derm: warm, dry Head: atraumatic, normocephalic, symmetric Eyes: EOMI, no lid lag, anicteric sclera Mouth: no lip lesion, mucus membranes moist Cardiovascular: S1S2 reg, no murmur Lungs: Coarse BS bilateral, no rhonchi, no rales , no accessory muscle use Abdominal: soft, nontender to palpation, no guarding, no appreciable organom egaly Ext: no gross muscle atrophy, no edema, no contractures Neuro: No focal neurologic deficits Psych: Alert and oriented Based on my assessment of this patient, this patient meets a high complexity level of care. Patient has an acute diagnosis of NSTEMI complicated with renal failure, asystole and VFib requiring debrillation currently extubated but remains on Levophed and Dobutamine along with Lasix drip that poses a threat to life or bodily function. Acute hypoxic respiratory failure: Extubated 12/16. CXR shows diffuse infiltrates concerning pulmonary edema. Initiated on HD on 12/13 and 12/14. Maintained on Zosyn per ID. DuoNeb PRN for SOB/wheezing. Pulmicort 1 INH BID. Lasix drip star lida 12/19 (10 mg/hr). Cardiogenic shock: Continue Levophed currently at 0.15 mcg/kg/min. Dobutamine drip at 2.5 mcg/kg/min. Acute anoxic encephalopathy: Results of Brain CT and EEG as above. Improving. Neurology on board. Sepsis due to aspiration PNA: Completed course of Zosyn 12/19. BCx 12/06 negative. Sputum Cx 12/11 and BCx 12/12 negative. ID on board. ZOEY on CKD: Initiated on HD on 12/13 and 12/14. Lasix drip started 12/19. Sodium bicarbonate 650 mg PO BID. Nephrology on board. NSTEMI: Status post PCI of left main and ramus 12/09. ASA 81 mg PO QD. Lipitor 80 mg PO QHS. Plavix 75 mg PO QD. Ranexa 500 mg PO BID. Diabetes mellitus with hyperglycemia: Highest POC glucose 271. ISS. Novolog 6 units TID. Levemir 30 units QD. Accuechecks Q6H. Hypoglycemic precautions. Normocytic anemia: Transfuse if Hg < 7. Resolving: Acute anoxic encephalopathy Resolved: Hyponatremia Chronic conditions: history of CVA, hypertension, BPH, hypothyroidism CODE STATUS: FULL CODE. DVT Prophylaxis: Eliquis GI Prophylaxis: Protonix IV Designated medical POA if patient is not able to make medical decisions for them selves: Daughter I have reviewed the following client service consultant notes: ID, Cardiology, Pulmonary, Neurology, Nephrology note. I have reviewed the results of the following tests: CBC. BMP. I have ordered the following tests: CBC. BMP. I have discussed the care of this patient with the following independent historian: RANDALL. I have independently interpreted the following test below: CXR I have discussed the management of this patient with the following physician: Objective - Vital Signs Vital signs: Vital Signs Temp 98.9 F 12/22/23 04:00 Pulse 105 H 12/22/23 07:00 Resp 23 12/22/23 07:00 BP 122/57 12/22/23 07:00 Pulse Ox 93 L 12/22/23 07:00 FiO2 30 12/22/23 06:00 Intake & Output 12/21/23 12/22/23 12/22/23 18:59 06:59 18:59 Intake Total 1297.066 957.303 3 Output Total 665 735 100 Balance 632.066 222.303 -97 Weight 86.4 kg Intake: IV 156 46 3 Furosemide 100 mg In 120 10 Sodium Chloride 0.9% 90 ml @ 10 MG/HR 10 mls/hr IV .Q10H YASEMIN Rx#: [id number] Pressure bag 36 36 3 Intake, IV Titration 341.066 911.303 Amount DOBUTamine DRIP 500 mg In 250 Dextrose/Water 1 250ml. bag @ 2.5 MCG/KG/MIN 6. 203 mls/hr IV .Q24H YASEMIN Rx#:[id number] Furosemide 100 mg In 177.500 100 Sodium Chloride 0.9% 90 ml @ 10 MG/HR 10 mls/hr IV .Q10H YASEMIN Rx#: [id number] Norepinephrine 4 mg In 163.566 561.303 Sodium Chloride 0.9% 250 ml @ 0.03 MCG/KG/MIN 9. 453 mls/hr IV .Q24H YASEMIN Rx#:[id number] Oral 800 Output: Urine 665 735 100 Other: Voiding Method Indwelling Catheter Indwelling Catheter ABP, PAP, CO, CI - Last Documented Arterial Blood Pressure 125/55 - Labs CBC & Chem 7: 12/22/23 04:00 12/22/23 04:00 Labs: Abnormal Lab Results - Last 24 Hours (Table) 12/21/23 12/21/23 12/21/23 Range/Units 12:13 17:28 19:59 WBC (3.8-10.6) k/uL RBC (4.30-5.90) m/uL Hgb (13.0-17.5) gm/dL Hct (39.0-53.0) % RDW (11.5-15.5) % Neutrophils # (1.3-7.7) k/uL Lymphocytes # (1.0-4.8) k/uL Chloride (98-107) mmol/L BUN (9-20) mg/dL Creatinine (0.66-1.25) mg/dL Glucose (74-99) mg/dL POC Glucose (mg/dL) 271 H 187 H 181 H (70-110) mg/dL Calcium (8.4-10.2) mg/dL 12/22/23 12/22/23 12/22/23 Range/Units 04:00 04:00 06:38 WBC 11.7 H (3.8-10.6) k/uL RBC 3.36 L (4.30-5.90) m/uL Hgb 9.9 L (13.0-17.5) gm/dL Hct 31.6 L (39.0-53.0) % RDW 17.5 H (11.5-15.5) % Neutrophils # 10.3 H (1.3-7.7) k/uL Lymphocytes # 0.9 L (1.0-4.8) k/uL Chloride 108 H (98-107) mmol/L BUN 81 H (9-20) mg/dL Creatinine 2.47 H (0.66-1.25) mg/dL Glucose 180 H (74-99) mg/dL POC Glucose (mg/dL) 192 H (70-110) mg/dL Calcium 8.2 L (8.4-10.2) mg/dL
[2023-12-22 11:09] LABS: Glucose,Whole Blood 176 mg/dL (70-110)
[2023-12-22] MEDS: polyethylene glycoL 3350 17 GM POWD.PACK PO SCH (11:19)
--- NOTE | 2023-12-22 11:38 | P.PN ---
Subjective Progress Note Date: 12/22/23 83-year-old male patient who sustained a cardiac yesterday at 2033 and following that the patient was moved to the intensive care unit. The patient was found in asystole. He received CPR based on ACLS protocol. Initial downtime was around 25 to 30 minutes and the patient received 4 rounds of epinephrine and CPR. During the process the patient was also found to be in V-fib and was defibrillated. He was brought into the intensive care unit where he had another code at 2106 and the second code was brief. He was placed on pressors. He is already intubated on mechanical ventilator.. This morning, the patient is on propofol which is running at 50 mcg/kg/min. He is hypotensive and is on norepinephrine 0.18 micrograms per kilogram per minute. He was a difficult IV access. Unable to insert an arterial line. The triple-lumen catheter was inserted in the right femoral vein for hemodynamic support and pressors. At this point in time, he is on assist-control mode at a rate of 20, tidal volume of 400, FiO2 of 70% with a PEEP of 5. The chest x-ray is showing adequate positioning of the ET tube. Orotracheal tube was initially in the right mainstem that was pulled out. No change in the bilateral opacities seen. The patient also has a moderate-sized right-sided pleural effusion along with pulm vascular congestion. Blood work from today shows a WBC count 9.9 with a hemoglobin 10.9 and a platelet count of 147. pH is 7.43 with a pCO2 of 34 and a pO2 of 84. Sodium levels at 127 and potassium levels at 4.3 with a serum bicarb of 17 and the BUN is at 80 with a creatinine of 4.2 as the patient has an acute on top of chronic kidney injury. This could have been also related to contrast as the patient's creatinine was gradually going up following his cardiac procedures. Troponin currently is at 3.07 and it is uptrending again post cardiac arrest. Cardiology was informed of those changes. No plans for any further intervention. In terms of his cardiac history, the patient is followed by Dr. Nelson who presents with symptoms of chest discomfort. He has a known history of CAD underwent stenting of the LAD in September [address] Remy and subsequently was readmitted about a week after with acute thrombosis and underwent angioplasty and thrombectomy. He underwent repeat cardiac catheterization in August and was found to have totally occluded LAD with distal left main disease but was felt to be a poor candidate for any surgical intervention. He presents with symptoms of chest discomfort and dyspnea at rest yesterday He usually has exertional angina pectoris with dyspnea on exertion. His activity is limited. He has evidence of cardiomyopathy with segmental wall motion abnormality consistent with his initial presentation with myocardial infarction.Patient is status attempted catheterization with Dr. Nelson on 12/09/2023. Dr. Nelson had difficulty obtaining access and his cardiac catheterization was canceled. He underwent repeat cardiac catheterization with Dr. Remy with PCI of left main and ramus. Patient was hypotensive during the procedure. Patient was reevaluated today on 12/14/2023, patient remains in the ICU, intubated and mechanically ventilated. Patient was initially admitted on 12/05 with unstable angina, chest pain, severe coronary artery disease, and he was never felt to be a candidate for any surgical intervention. He had chronically occluded ostial LAD and ischemic cardiomyopathy. In addition he had chronic kidney disease and diabetes. As noted above the patient had cardiac arrest x 2 remains intubated and mechanically ventilated, he is on assist-control rate of 20 tidal volume 400 FiO2 50% PEEP of 5 ABG showed a pO2 of 88 pCO2 35 pH of 7.41. Patient may have developed anoxic brain injury, hence neurology will be consulted. Patient required a right brachial arterial line placement today, and this was done uneventfully. Patient will be started today on tube feeding. Looking back at the patient's history, patient clearly has a significant cardiac history, on 12/11, patient had V-fib cardiac arrest x 2 and he had CPR at 1 time it was 20 minutes the second time was 8 minutes of CPR. Obviously we are quite concerned about the possibility of anoxic brain injury. Chest x-ray is showing evidence of pulmonary edema, underlying pneumonia is not entirely ruled out but felt to be less likely patient is requiring norepinephrine at 0.16 mcg/kg/min also requiring propofol at 40 mcg/kg/min, FiO2 was decreased down to 45% today. Renal functioning is continuing to worse, patient is not making much urine, and spite of giving him Lasix and Bumex renal replacement therapy will be initiated today. Dialysis catheter was placed this morning. WBC count today is 10.3 hemoglobin is 9.9 basic metabolic profile is normal except for sodium of 129, BUN is up to 88 creatinine 5.81 blood sugar is 272 Patient was reevaluated today on 12/15/2023, remains in the ICU, intubated and mechanically ventilated he is on assist-control rate of 20 tidal volume 400 FiO2 35% and PEEP of 5 ABG showed a pO2 of 77 pCO2 35 pH of 7.45, patient is undergoing hemodialysis this morning. Remains on amiodarone drip, propofol at 25 mcg/kg/min is also on norepinephrine drip at 0.14 mcg/kg/min remains empirically on Zosyn. Chest x-ray is consistent with diffuse pleuroparenchymal changes/pulmonary edema picture, possible ARDS but I believe that pulmonary edema is really cardiogenic in nature. Sibling has history of ischemic cardiomyopathy. CBC showed WBC of 13.7 hemoglobin 9.8. Basic metabolic profile is normal sodium is 130, BUN is 77 creatinine 4.50, again the patient will have hemodialysis today neurologically, the patient is not responding to any stimuli, being followed by neurology, and I honestly believe the patient has most likely severe anoxic brain injury. Off sedation yesterday, patient was opening his eyes only but no other responses noted Evaluated today on 12/16/2023, remains in the ICU, intubated and mechanically ventilated, on assist-control rate of 20 tidal volume 400 FiO2 35% PEEP of 5 ABG showed a pO2 of 72 pCO2 34 pH of 7.46. Patient is opening eyes only but no responses whatsoever except opening eyes. And no purposeful movement is noted. He is off sedation for the last 24 hours, still requiring norepinephrine at 0.09 mcg/kg/min remains on Zosyn empirically patient has a decent urine output of 50 to 100 cc/h chest x-ray continues to show evidence of pulmonary edema or possible aspiration pneumonia. Patient is being treated for both. I suspect clinically that this is more of pulmonary edema secondary to severe LV dysfunction. At any rate we will continue to keep the patient off sedation as long as tolerated to fully assess mental status, presently although we could get is patient opening his eyes only. WBC count is 13.2 hemoglobin 9.8. Basic metabolic profile is normal BUN is 57 creatinine 2.93, patient has been on hemodialysis since 12/13, his last dialysis was yesterday. Urine output is picking up slightly. Patient was reevaluated today on 12/17/2023, remains intubated but not sedated, patient is off propofol, patient is awake, follows simple instructions like squeezing hands, wiggling toes, and closing and opening eyes. Seems to be appropriate, hence I plan to give the patient today a trial of pressure support and CPAP. His ABG showed a pO2 of 90 pCO2 37 pH of 7.43, patient has improvement in his urine output, his last hemodialysis was on 12/14, and his urine output seems to be stable, continues to receive tube feeds, still requiring norepinephrine at 0.1 mcg/kg/min remains on Zosyn and remains intermittently on diuretics. Chest x-ray is showing diffuse pleural-parenchymal changes consistent with pulmonary edema and/or pneumonia. Patient is receiving treatment for both the last chest x-ray is showing improvement sputum cultures have been nondiagnostic, blood cultures have been negative. WBC count today is 14.3 hemoglobin is 9.9, basic metabolic profile is normal BUN is 67 creatinine 2.83 steadily improving over the last few days. Reevaluate today on 12/18/2023, patient was extubated yesterday, he is presently on BiPAP 14/5/35%. Patient remains on norepinephrine at 0.04 mcg/kg/min, he is off fluids at KVO, his last hemodialysis was 12/14, urine output is reasonable, patient may not require any more hemodialysis. Patient is to have a swallow ev aluation today, remains on Zosyn for presumptive aspiration pneumonia. At any rate patient tolerated the extubation well over the last 24 hours, but he remains marginal and I would like to continue to monitor the patient in the ICU for at least the next 24 to 48 hours. Chest x-ray continues to show diffuse pleural-parenchymal changes, suspicious for pulmonary edema or aspiration pneumonia but improving, CBC is relatively normal basic metabolic profile is normal BUN is 67 creatinine down to 2.51 Reevaluate today on 12/19/23, patient continues to tolerate extubation for the last 2 days, however still on BiPAP 14/5/35%, still requiring norepinephrine at 0.04 mcg/kg/min. Chest x-ray is showing worsening right-sided pleural effusion and right airspace disease, I am recommending more diuretics on this patient, patient remains on antibiotics empirically. The findings on the chest x-ray is a bit concerning, clinically the patient is doing well, and no major setback clinically compared to yesterday WBC count is 13.3 hemoglobin is 9.8 basic metabolic profile is normal BUN is 174 creatinine 2.34 blood cultures and sputum cultures have been negative/nondiagnostic. Patient was today on 12/20/2023, patient was extubated now 3 days ago, continues to tolerate the extubation well. However his overall clinical status remains marginal at best. Patient is not quite ready to be transferred out of the ICU mostly because he is still requiring norepinephrine for low blood pressure, and he is now on Lasix drip for what seems to be a picture of congestive heart failure secondary to ischemic cardiomyopathy and LV dysfunction. His ejection fraction is no more than 25%. Yesterday I recommended Lasix because he was developing significant right-sided pleural effusion and that seems to be impr griffin today. Patient is now on 3 L nasal cannula, intermittently on BiPAP 14/5/35%. Patient had a negative balance of 2580 over the last 24 hours since he was placed on Lasix drip. Today I am recommending dobutamine at 2.5 mcg/kg/min, on a trial basis considering that the patient has severe LV dys function, and may taper the norepinephrine down if he does better with dobutamine. Diet will be advanced, he is now on pured diet. Still concerned about potential aspiration. And this was recommended by speech therapy. Antibiotics salguero patient remains on Zosyn empirically. Chest x-ray continues to show small right-sided pleural effusion and bibasilar infiltrates/atelectasis/pneumonia suspect the findings are also findings of congestive heart failure. Systolic in nature WBC count today is 9.3 hemoglobin 9.7. Basic metabolic profile is normal renal profile is slightly worse today BUN of 73 creatinine 2.49, nonetheless the patient is not oliguric. And he is responding well to Lasix drip The patient is seen today December 21, 2023 in follow-up in the intensive care unit. He is currently resting in bed. Awake and alert in no acute distress. He was extubated back on December 17, 2023. He is currently maintaining good O2 saturations in the 90s on 3 L/min per nasal cannula. Chest x-ray shows similar cardiomegaly with bilateral pleural effusion and associated atelectasis. Cultures revealed no growth. Sputum culture revealed no growth. White count 8.5. Hemoglobin 9.2. Platelets 257. Sodium 142. Potassium 4.0. Bicarb 19. BUN 72. Creatinine 2.49. Glucose 197. He is continued on Lasix drip at 10 mg/h. Dobutamine at 2.5 mcg/kg/min. Norepinephrine at 6 mcg/min. He is an ticoagulated with Eliquis. He is currently in a -1 L balance. The patient is seen today December 22, 2023 in follow-up in the intensive care unit. He is currently awake and alert in no acute distress. Maintaining O2 saturations in the 90s on 3 L/min per nasal cannula. He did utilize BiPAP last night 01/02 and 35% FiO2. He is still requiring norepinephrine at 0.11 mcg/kg/min. Lasix at 10 mg/h. Dobutamine at 2.5 g/kg/min.. Platelets 334. Sodium 143. Potassium 3.8. Bicarb 23. BUN 81. Creatinine 2.47. Glucose 180. He remains in a positive balance today of 850 MLS. He is anticoagulated with Eliquis. Continue on DuoNeb ventilations, Pulmicort and Perforomist inhalations. Remains on Zaroxolyn. Objective - Vital Signs Vital signs: Vital Signs Temp 97.9 F 12/22/23 08:00 Pulse 87 12/22/23 11:00 Resp 18 12/22/23 11:00 BP 106/63 12/22/23 11:00 Pulse Ox 94 L 12/22/23 11:00 FiO2 35 12/22/23 11:28 Intake & Output 12/21/23 12/22/23 12/22/23 18:59 06:59 18:59 Intake Total 1297.066 957.303 256.254 Output Total 665 735 410 Balance 632.066 222.303 -153.746 Weight 86.4 kg Intake: IV 156 46 40 Furosemide 100 mg In 120 10 Sodium Chloride 0.9% 90 ml @ 10 MG/HR 10 mls/hr IV .Q10H YASEMIN Rx#: [id number] Normal Saline 5mL/hr 25 Pressure bag 36 36 15 Intake, IV Titration 341.066 911.303 216.254 Amount DOBUTamine DRIP 500 mg In 250 Dextrose/Water 1 250ml. bag @ 2.5 MCG/KG/MIN 6. 203 mls/hr IV .Q24H YASEMIN Rx#:[id number] Furosemide 100 mg In 177.500 100 Sodium Chloride 0.9% 90 ml @ 10 MG/HR 10 mls/hr IV .Q10H YASEMIN Rx#: [id number] Norepinephrine 4 mg In 163.566 561.303 216.254 Sodium Chloride 0.9% 250 ml @ 0.03 MCG/KG/MIN 9. 453 mls/hr IV .Q24H YASEMIN Rx#:[id number] Oral 800 Output: Urine 665 735 410 Other: Voiding Method Indwelling Catheter Indwelling Catheter ABP, PAP, CO, CI - Last Documented Arterial Blood Pressure 82/43 - Exam GENERAL EXAM: Alert, 83-year-old male patient, sitting up in bed, on 3 L nasal cannula, comfortable in no apparent distress. HEAD: Normocephalic. EYES: Normal reaction of pupils, equal size. NOSE: Clear with pink turbinates. THROAT: No erythema or exudates. NECK: No masses, no JVD. CHEST: No chest wall deformity. LUNGS: Equal air entry with no crackles in the bilateral bases. CVS: S1 and S2 normal with no audible murmur, regular rhythm. ABDOMEN: No hepatosplenomegaly, normal bowel sounds, no guarding or rigidity. SPINE: No scoliosis or deformity SKIN: No rashes CENTRAL NERVOUS SYSTEM: No focal deficits, tone is normal in all 4 extremities. EXTREMITIES: There is 1+ peripheral edema. No clubbing, no cyanosis. Per ipheral pulses are intact. - Labs CBC & Chem 7: 12/22/23 04:00 12/22/23 04:00 Labs: Abnormal Lab Results - Last 24 Hours (Table) 12/21/23 12/21/23 12/21/23 Range/Units 12:13 17:28 19:59 WBC (3.8-10.6) k/uL RBC (4.30-5.90) m/uL Hgb (13.0-17.5) gm/dL Hct (39.0-53.0) % RDW (11.5-15.5) % Neutrophils # (1.3-7.7) k/uL Lymphocytes # (1.0-4.8) k/uL Chloride (98-107) mmol/L BUN (9-20) mg/dL Creatinine (0.66-1.25) mg/dL Glucose (74-99) mg/dL POC Glucose (mg/dL) 271 H 187 H 181 H (70-110) mg/dL Calcium (8.4-10.2) mg/dL 12/22/23 12/22/23 12/22/23 Range/Units 04:00 04:00 06:38 WBC 11.7 H (3.8-10.6) k/uL RBC 3.36 L (4.30-5.90) m/uL Hgb 9.9 L (13.0-17.5) gm/dL Hct 31.6 L (39.0-53.0) % RDW 17.5 H (11.5-15.5) % Neutrophils # 10.3 H (1.3-7.7) k/uL Lymphocytes # 0.9 L (1.0-4.8) k/uL Chloride 108 H (98-107) mmol/L BUN 81 H (9-20) mg/dL Creatinine 2.47 H (0.66-1.25) mg/dL Glucose 180 H (74-99) mg/dL POC Glucose (mg/dL) 192 H (70-110) mg/dL Calcium 8.2 L (8.4-10.2) mg/dL 12/22/23 Range/Units 11:07 WBC (3.8-10.6) k/uL RBC (4.30-5.90) m/uL Hgb (13.0-17.5) gm/dL Hct (39.0-53.0) % RDW (11.5-15.5) % Neutrophils # (1.3-7.7) k/uL Lymphocytes # (1.0-4.8) k/uL Chloride (98-107) mmol/L BUN (9-20) mg/dL Creatinine (0.66-1.25) mg/dL Glucose (74-99) mg/dL POC Glucose (mg/dL) 176 H (70-110) mg/dL Calcium (8.4-10.2) mg/dL Assessment and Plan Assessment: Cardiac arrest x 2 Severe coronary artery disease and acute non-ST elevation myocardial infarction Acute hypoxic respiratory failure secondary to above Cardiogenic shock Acute systolic congestive heart failure Anoxic encephalopathy Severe ischemic cardiomyopathy and LV dysfunction with ejection fraction of 35 to 40% History of CVA History of medical debility and multiple comorbidities Type 2 diabetes Dyslipidemia Acute kidney injury, on hemodialysis History of underlying coronary artery disease with previous stent of LAD September 22, 2022, complicated by acute thrombosis requiring angioplasty and thrombectomy repeat cardiac catheterization 09/12 showed totally occluded LAD with distal left main disease felt to be poor candidate for surgical intervention Plan: The patient was seen and evaluated Chest x-ray, labs and medications reviewed Stable and on 3 L nasal cannula Continue the current treatment plan Overall prognosis is quite guarded Continue to monitor here in the intensive care unit I have personally seen and examined the patient, performed the documentation and the assessment and plan as written. Number of minutes spent on the visit: 10.
--- NOTE | 2023-12-22 13:14 | P.PN ---
Subjective patient is seen for follow-up for acute kidney injury and chronic kidney disease. Patient has received 2 treatments of hemodialysis on 12/14/2023 and 12/15/2023. hemodialysis on hold since 12/15/2023 maintained on Lasix drip dobutamine was discontinued this morning. Urine output 40-50 mL an hour Serum creatinine at 2.47. Objective - Vital Signs Vital signs: Vital Signs Temp 97.9 F 12/22/23 08:00 Pulse 87 12/22/23 11:53 Resp 18 12/22/23 11:00 BP 106/63 12/22/23 11:00 Pulse Ox 94 L 12/22/23 11:00 FiO2 30 12/22/23 11:53 Intake & Output 12/21/23 12/22/23 12/22/23 18:59 06:59 18:59 Intake Total 1297.066 957.303 272.254 Output Total 665 735 465 Balance 632.066 222.303 -192.746 Weight 86.4 kg 86.4 kg Intake: IV 156 46 56 Furosemide 100 mg In 120 10 Sodium Chloride 0.9% 90 ml @ 10 MG/HR 10 mls/hr IV .Q10H [facility]AS[facility] Rx#: [id number] Normal Saline 5mL/hr 35 Pressure bag 36 36 21 Intake, IV Titration 341.066 911.303 216.254 Amount DOBUTamine DRIP 500 mg In 250 Dextrose/Water 1 250ml. bag @ 2.5 MCG/KG/MIN 6. 203 mls/hr IV .Q24H [facility]ASEMIN Rx#:[id number] Furosemide 100 mg In 177.500 100 Sodium Chloride 0.9% 90 ml @ 10 MG/HR 10 mls/hr IV .Q10H [facility]ASEMIN Rx#: [id number] Norepinephrine 4 mg In 163.566 561.303 216.254 Sodium Chloride 0.9% 250 ml @ 0.03 MCG/KG/MIN 9. 453 mls/hr IV .Q24H [facility]ASEMIN Rx#:[id number] Oral 800 Output: Urine 665 735 465 Other: Voiding Method Indwelling Catheter Indwelling Catheter ABP, PAP, CO, CI - Last Documented Arterial Blood Pressure 82/43 - Exam patient is awake Currently on BiPAP Examination of the heart S1 and S2 Examination the lungs bilateral breath sounds are heard Abdomen is soft obese nontender Examination lower extremities shows edema 1+ bilaterally, decreased Patient is hard of hearing but moving all 4 extremities. - Labs CBC & Chem 7: 12/22/23 04:00 12/22/23 04:00 Labs: Abnormal Lab Results - Last 24 Hours (Table) 12/21/23 12/21/23 12/22/23 Range/Units 17:28 19:59 04:00 WBC 11.7 H (3.8-10.6) k/uL RBC 3.36 L (4.30-5.90) m/uL Hgb 9.9 L (13.0-17.5) gm/dL Hct 31.6 L (39.0-53.0) % RDW 17.5 H (11.5-15.5) % Neutrophils # 10.3 H (1.3-7.7) k/uL Lymphocytes # 0.9 L (1.0-4.8) k/uL Chloride (98-107) mmol/L BUN (9-20) mg/dL Creatinine (0.66-1.25) mg/dL Glucose (74-99) mg/dL POC Glucose (mg/dL) 187 H 181 H (70-110) mg/dL Calcium (8.4-10.2) mg/dL 12/22/23 12/22/23 12/22/23 Range/Units 04:00 06:38 11:07 WBC (3.8-10.6) k/uL RBC (4.30-5.90) m/uL Hgb (13.0-17.5) gm/dL Hct (39.0-53.0) % RDW (11.5-15.5) % Neutrophils # (1.3-7.7) k/uL Lymphocytes # (1.0-4.8) k/uL Chloride 108 H (98-107) mmol/L BUN 81 H (9-20) mg/dL Creatinine 2.47 H (0.66-1.25) mg/dL Glucose 180 H (74-99) mg/dL POC Glucose (mg/dL) 192 H 176 H (70-110) mg/dL Calcium 8.2 L (8.4-10.2) mg/dL Assessment and Plan Assessment: 1. Acute kidney injury secondary to hemodynamic ATN, cardiorenal syndrome and c ardiac arrest. Also component of contrast-induced acute kidney injury. Creatinine up to 5.8 dated December 14, 2023. Was oliguric, now nonoliguric. UA benign. No hydronephrosis noted on CAT scan. Creatinine at 2.47 today. 2. 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 3. Coronary artery disease status postcardiac catheterization with stent placement on December 10, 2023. Not a candidate for CABG. 4. Metabolic acidosis secondary to acute kidney injury. Better. 5. Hyponatremia. Component of poor solute intake. Hypervolemic. Better. 6. Diabetes mellitus. 7. Possible pneumonia on antibiotics. ID following. 8. Volume overload. Improved with ultrafiltration and better urine output. maintained on Lasix drip and dobutamine 9. Status postcardiac arrest - V-fib and PEA. 10. Cardiomyopathy with EF of 35-40% Plan: switch to IV push Lasix 60 mg IV every 8 hours continue Zaroxolyn Repeat labs in a.m. We'll need to DC femoral dialysis catheter in the next 1-2 days
--- NOTE | 2023-12-22 15:17 | PN ---
PROGRESS NOTE SUBJECTIVE: An 83-year-old gentleman with history of coronary artery disease, status post angioplasty, ischemic cardiomyopathy with severe LV systolic dysfunction and chronic systolic heart failure, chronic renal insufficiency. He is on a BiPAP with an FiO2 of 35%, oxygenating well. Denies any symptoms this morning. OBJECTIVE: VITAL SIGNS: On exam, heart rate is 87 beats per minute, blood pressure is 110/62, and respiratory rate is 18. CHEST: Reveals diminished air entry at the bases. HEART: Reveals first and second heart sounds and a systolic murmur at the apex. ABDOMEN: Soft. EXTREMITIES: Reveal bilateral 1+ edema. MEDICATIONS: The patient is currently on Lasix drip, which is going to be switched to IV Lasix. The patient is on dobutamine, which I am going to stop at this time. LABORATORY DATA: Labs showed that the BUN is 81, creatinine is 2.4, and hemoglobin is 9.9. ASSESSMENT: 1. Acute exacerbation of chronic systolic heart failure. 2. Ischemic cardiomyopathy. 3. Coronary artery disease, status post angioplasty of left main into circumflex coronary artery. PLAN: The patient will continue current medications. Prognosis is guarded. MMODL / IJN: [id number] /
--- NOTE | 2023-12-22 16:13 | P.PN ---
Subjective Progress Note Date: 12/22/23 Principal diagnosis: Reason for follow-up is fever possible pneumonia Patient is a 83-year-old male past medical history significant for diabetes mellitus hypertension [place] CVA TIA presenting to the hospital with chest pain shortness of breath also noticed to be febrile prompting this consultation. Patient did have worsening of his respiratory status and also cardiac arrest with the patient has been intubated and transferred to the ICU patient subsequently has been extubated On today's evaluation that is 12/22/2023, Patient is afebrile patient is currently on BiPAP 35% FiO2 has been complaining of some chest pain no worsening cough no vomiting diarrhea and the changes reported. Patient white count is 11.7, creatinine is 2.47 Objective - Vital Signs Vital signs: Vital Signs Temp 97.9 F 12/22/23 08:00 Pulse 95 12/22/23 15:46 Resp 22 12/22/23 15:00 BP 109/73 12/22/23 15:00 Pulse Ox 93 L 12/22/23 15:00 FiO2 35 12/22/23 15:35 Intake & Output 12/21/23 12/22/23 12/22/23 18:59 06:59 18:59 Intake Total 1297.066 957.303 392.234 Output Total 665 735 525 Balance 632.066 222.303 -132.766 Weight 86.4 kg 86.4 kg Intake: IV 156 46 72 Furosemide 100 mg In 120 10 Sodium Chloride 0.9% 90 ml @ 10 MG/HR 10 mls/hr IV .Q10H [facility] Rx#: [id number] Normal Saline 5mL/hr 45 Pressure bag 36 36 27 Intake, IV Titration 341.066 911.303 320.234 Amount DOBUTamine DRIP 500 mg In 250 Dextrose/Water 1 250ml. bag @ 2.5 MCG/KG/MIN 6. 203 mls/hr IV .Q24H [facility] Rx#:[id number] Furosemide 100 mg In 177.500 100 Sodium Chloride 0.9% 90 ml @ 10 MG/HR 10 mls/hr IV .Q10H [facility] Rx#: [id number] Norepinephrine 4 mg In 163.566 561.303 320.234 Sodium Chloride 0.9% 250 ml @ 0.03 MCG/KG/MIN 9. 453 mls/hr IV .Q24H YAS[facility]IN Rx#:[id number] Oral 800 Output: Urine 667 735 525 Other: Voiding Method Indwelling Catheter Indwelling Catheter Indwelling Catheter ABP, PAP, CO, CI - Last Documented Arterial Blood Pressure 112/49 - Exam GENERAL DESCRIPTION: An elderly male lying in bed in no distress RESPIRATORY SYSTEM: Unlabored breathing , decreased breath sounds at bases HEART: S1 S2 regular rate and rhythm , ABDOMEN: Soft , no tenderness EXTREMITIES: No edema feet - Labs CBC & Chem 7: 12/22/23 04:00 12/22/23 04:00 Labs: Abnormal Lab Results - Last 24 Hours (Table) 12/21/23 12/21/23 12/22/23 Range/Units 17:28 19:59 04:00 WBC 11.7 H (3.8-10.6) k/uL RBC 3.36 L (4.30-5.90) m/uL Hgb 9.9 L (13.0-17.5) gm/dL Hct 31.6 L (39.0-53.0) % RDW 17.5 H (11.5-15.5) % Neutrophils # 10.3 H (1.3-7.7) k/uL Lymphocytes # 0.9 L (1.0-4.8) k/uL Chloride (98-107) mmol/L BUN (9-20) mg/dL Creatinine (0.66-1.25) mg/dL Glucose (74-99) mg/dL POC Glucose (mg/dL) 187 H 181 H (70-110) mg/dL Calcium (8.4-10.2) mg/dL 12/22/23 12/22/23 12/22/23 Range/Units 04:00 06:38 11:07 WBC (3.8-10.6) k/uL RBC (4.30-5.90) m/uL Hgb (13.0-17.5) gm/dL Hct (39.0-53.0) % RDW (11.5-15.5) % Neutrophils # (1.3-7.7) k/uL Lymphocytes # (1.0-4.8) k/uL Chloride 108 H (98-107) mmol/L BUN 81 H (9-20) mg/dL Creatinine 2.47 H (0.66-1.25) mg/dL Glucose 180 H (74-99) mg/dL POC Glucose (mg/dL) 192 H 176 H (70-110) mg/dL Calcium 8.2 L (8.4-10.2) mg/dL Assessment and Plan (1) Fever and chills Current Visit: Yes Status: Acute Code(s): R50.9 - FEVER, UNSPECIFIED SNOMED Code(s): 665319287 (2) Sepsis Current Visit: Yes Status: Acute Code(s): A41.9 - SEPSIS, UNSPECIFIED ORGANISM SNOMED Code(s): 63372037 (3) Aspiration pneumonia Current Visit: Yes Status: Acute Code(s): J69.0 - PNEUMONITIS DUE TO INHALATION OF FOOD AND VOMIT SNOMED Code(s): 234457770 Plan: 1patient presented hospital with chest pain noticed to have a fever on admission and another fever this morning did have predominantly respiratory symptoms with a question of possible pneumonia versus intra-abdominal pathology, but we did have a negative UA no evidence of any cellulitis or joint swelling 2-patient did have cardiac arrest and admission to the ICU and for possible aspiration, blood and sputum culture so far negative, the patient subsequently has been extubated 3-patient is afebrile, white count mildly elevated will be monitored closely has completed course of Zosyn Dictation was produced using [employer] dictation software. please excuse any grammatical, word or spelling errors. Time with Patient: Less than 30
[2023-12-22 16:18] LABS: Glucose,Whole Blood 179 mg/dL (70-110)
[2023-12-22] MEDS: FUROSEMIDE 10 MG/ML 10 ML VIAL IV SCH (16:36)
[2023-12-22 19:59] LABS: Glucose,Whole Blood 160 mg/dL (70-110)
[2023-12-23 04:16] LABS: Anisocytosis Slight; Basophils % (A) 0 %; Eosinophils % (A) 0 %; HCT 24.7 % (39.0-53.0); Hypochromasia Moderate; Lymphocytes # (A) 0.6 k/uL (1.0-4.8); Lymphocytes % (A) 7 %; MCH 28.9 pg (25.0-35.0); MCHC 30.5 g/dL (31.0-37.0); MCV 94.5 fL (80.0-100.0); Macrocytosis Slight; Mean Platelet Volume 8.8; Monocytes # (A) 0.4 k/uL (0-1.0); Monocytes % (A) 6 %; Neutrophils # (A) 6.7 k/uL (1.3-7.7); Neutrophils % (A) 85 %; Platelet Count 266 k/uL (150-450); RBC 2.62 m/uL (4.30-5.90); RDW 18.1 % (11.5-15.5); WBC 7.9 k/uL (3.8-10.6)
[2023-12-23 04:24] LABS: HGB 7.6 gm/dL (13.0-17.5)
[2023-12-23 05:30] LABS: African American GFR (CKD) 25 (>60 ml/min/1.73 sqM); Anion Gap 9 mmol/L; Blood Urea Nitrogen 87 mg/dL (9-20); Calcium 8.2 mg/dL (8.4-10.2); Carbon Dioxide 25 mmol/L (22-30); Chloride 109 mmol/L (98-107); Glucose 141 mg/dL (74-99); Non-African American GFR(CKD) 22 (>60 ml/min/1.73 sqM); Sodium 143 mmol/L (137-145)
[2023-12-23] MEDS: POTASSIUM CHLORIDE 20 MEQ in WATER FOR INJECTION 1 100ML.BAG IVPB SCH (06:03)
[2023-12-23 06:27] LABS: Glucose,Whole Blood 165 mg/dL (70-110)
--- NOTE | 2023-12-23 06:37 | P.PN ---
Subjective Progress Note Date: 12/23/23 83-year-old male with PMH of CAD, history of CVA, diabetes mellitus, chronic kidney disease, hypertension, BPH, hypothyroidism presents the ED for chest pain. Chest pain woke him up at 3AM. Chest pain mid sternal, described as rumbling, radiating to both arms. Associated symptoms include diaphoresis. Chest pain was relieved by sublingual nitroglycerin. Of note, also reports fevers as high as 101.3F over the past 3 days. No cough, rash, urinary or bowel symptoms. In the ED, he underwent extensive evaluation. BP 98/61, HR 84, RR 20, T 102.6F, 100% on 1 LNC. CBC, coag panel and CMP was done significant for lymphocyte count of 0.5, sodium 1:30, bicarb 18, BUN 34, creatinine 1.8, glucose 184, calcium 8.2, alk phos 167. Magnesium 2.2. Troponin 0.028. Flu, RSV, COVID-19 negative. EKG showed sinus rhythm with left bundle branch block. Chest x-ray showed small right pleural effusion and pulmonary vascular congestion. Patient is admitted for chest pain, rule out acute coronary syndrome and cardiology consultation. Workup from previous admission was reviewed. Cardiac cath 09/04/23 showed 70-80% distal left main, 100% ostial LAD with collateral, 80-90% ostial PDA, 80% proximal OM1. He has been evaluated by CT surgery in the past deemed to be poor surgical candidate for revascularization. Echocardiogram 09/01/23 showed EF 35-40% with anteroseptal, anterior wall hypokinesia, mild aortic stenosis. His troponins uptrended and he was started on a heparin drip. Cardiology consulted, he underwent cardiac catheterization on 12/08 but was cancelled due to poor vascular access. He underwent repeat cardiac cath on 12/09 and PCI of left main and ramus. His renal function continued to worsen after cardiac cath. CODE BJ was called on 12/11, noted to be in asystole and V-Fib requiring defibril lation, epinephrine, calcium chloride and sodium bicarb. ROSC was achieved and he was transferred to the ICU. He developed asystole again in the ICU requiring epinephrine and sodium bicarb. ROSC was once again achieved. Nephrology consulted, HD catheter placed and HD started on 12/13 and 12/14. Neurology consulted for anoxic encephalopathy, Brain CT (negative for acute pathology) and EEG (severe encephaopathy) ordered. He remained intubated and maintained on Levophed and Zosyn. He was extubated on 12/16 and transitioned to BiPAP and nasal cannula. Difficulties titrating off Levophed. Dobutamine drip added 12/19. Lasix drip started on 12/19 along with Metolazone. Completed course of Zosyn on 12/19. Lasix drip transitioned to IVP and Dobutamine drip discontinued on 12/21. 12/23 Patient was seen and examined. Reports some nausea but no vomiting. Dobumatine drip discontinued yesterday. Levophed running at 0.03 mcg/kg/min. Lasix drip switched to 60 mg IV TID. 854 cc fluid balance over the past 24H. 77.111kg to 86.4 kg weight change since admission. CBC Hg 7.6 Hct 24.7. BMP K 3, Cl 109, BUN 87, Cr 2.63, glu 141, Ca 8.2. 60 meq KCl IV ordered. CXR shows persistent pulmonary vascular congestion. General: no distress, appears at stated age Derm: warm, dry Head: atraumatic, normocephalic, symmetric Eyes: EOMI, no lid lag, anicteric sclera Mouth: no lip lesion, mucus membranes moist Cardiovascular: S1S2 reg, no murmur Lungs: Coarse BS bilateral, no rhonchi, no rales , no accessory muscle use Abdominal: soft, nontender to palpation, no guarding, no appreciable organomegaly Ext: no gross muscle atrophy, no edema, no contractures Neuro: No focal neurologic deficits Psych: Alert and oriented Based on my assessment of this patient, this patient meets a high complexity level of care. Patient has an acute diagnosis of NSTEMI complicated with renal failure, asystole and VFib requiring debrillation currently extubated but remains on Levophed and Dobutamine along with Lasix drip that poses a threat to life or bodily function. Acute hypoxic respiratory failure: Extubated 12/16. CXR shows diffuse infiltrates concerning pulmonary edema. Initiated on HD on 12/13 and 12/14. Completed course of Zosyn per ID. DuoNeb PRN for SOB/wheezing. Pulmicort 1 INH BID. Lasix drip started 12/19-12/21. Currently on Lasix 60 mg IV TID. Cardiogenic shock: Continue Levophed currently at 0.03 mcg/kg/min. Dobutamine drip 12/19-12/21. Acute anoxic encephalopathy: Results of Brain CT and EEG as above. Improving. Neurology on board. Sepsis due to aspiration PNA: Completed course of Zosyn 12/19. BCx 12/06 negative. Sputum Cx 12/11 and BCx 12/12 negative. ID on board. ZOEY on CKD: Initiated on HD on 12/13 and 12/14. Lasix drip 12/19-12/21. Lasix 60 mg IV TID. Sodium bicarbonate 650 mg PO BID. Nephrology on board. NSTEMI: Status post PCI of left main and ramus 12/09. ASA 81 mg PO QD. Lipitor 80 mg PO QHS. Plavix 75 mg PO QD. Ranexa 500 mg PO BID. Diabetes mellitus with hyperglycemia: Highest POC glucose 192. ISS. Novolog 6 units TID. Levemir 30 units QD. Accuechecks Q6H. Hypoglycemic precautions. Normocytic anemia: Transfuse if Hg < 7. Resolving: Acute anoxic encephalopathy Resolved: Hyponatremia Chronic conditions: history of CVA, hypertension, BPH, hypothyroidism CODE STATUS: FULL CODE. DVT Prophylaxis: Eliquis GI Prophylaxis: Protonix IV Designated medical POA if patient is not able to make medical decisions for themselves: Daughter I have reviewed the following sr. consultant notes: ID, Cardiology, Pulmonary, Neurology, Nephrology note. I have reviewed the results of the following tests: CBC. BMP. I have ordered the following tests: BMP for tomorrow morning. I have discussed the care of this patient with the following independent historian: I have independently interpreted the following test below: CXR. I have discussed the management of this patient with the following physician: Objective - Vital Signs Vital signs: Vital Signs Temp 97.8 F 12/23/23 04:00 Pulse 85 12/23/23 04:00 Resp 21 12/23/23 04:00 BP 125/71 12/23/23 03:00 Pulse Ox 92 L 12/23/23 04:00 FiO2 30 12/23/23 04:00 Intake & Output 12/22/23 12/22/23 12/23/23 06:59 18:59 06:59 Intake Total 957.303 507.102 270.137 Output Total 735 890 445 Balance 222.303 -382.898 -174.863 Weight 86.4 kg 86.4 kg Intake: IV 46 104 72 Furosemide 100 mg In 10 Sodium Chloride 0.9% 90 ml @ 10 MG/HR 10 mls/hr IV .Q10H [facility] Rx#: [id number] Normal Saline 5mL/hr 65 45 Pressure bag 36 39 27 Intake, IV Titration 911.303 403.102 198.137 Amount DOBUTamine DRIP 500 mg In 250 Dextrose/Water 1 250ml. bag @ 2.5 MCG/KG/MIN 6. 203 mls/hr IV .Q24H [facility] Rx#:[id number] Furosemide 100 mg In 100 Sodium Chloride 0.9% 90 ml @ 10 MG/HR 10 mls/hr IV .Q10H [facility] Rx#: [id number] Norepinephrine 4 mg In 561.303 403.102 198.137 Sodium Chloride 0.9% 250 ml @ 0.03 MCG/KG/MIN 9. 453 mls/hr IV .Q24H [facility] Rx#:[id number] Output: Urine 735 890 445 Other: Voiding Method Indwelling Catheter Indwelling Catheter Indwelling Catheter ABP, PAP, CO, CI - Last Documented Arterial Blood Pressure 107/73 - Labs CBC & Chem 7: 12/23/23 03:50 12/23/23 05:02 Labs: Abnormal Lab Results - Last 24 Hours (Table) 12/22/23 12/22/23 12/22/23 Range/Units 04:00 06:38 11:07 RBC (4.30-5.90) m/uL Hgb (13.0-17.5) gm/dL Hct (39.0-53.0) % MCHC (31.0-37.0) g/dL RDW (11.5-15.5) % Lymphocytes # (1.0-4.8) k/uL Chloride 108 H (98-107) mmol/L BUN 81 H (9-20) mg/dL Creatinine 2.47 H (0.66-1.25) mg/dL Glucose 180 H (74-99) mg/dL POC Glucose (mg/dL) 192 H 176 H (70-110) mg/dL Calcium 8.2 L (8.4-10.2) mg/dL 12/22/23 12/22/23 12/23/23 Range/Units 16:16 19:58 03:50 RBC 2.62 L (4.30-5.90) m/uL Hgb 7.6 L D (13.0-17.5) gm/dL Hct 24.7 L (39.0-53.0) % MCHC 30.5 L (31.0-37.0) g/dL RDW 18.1 H (11.5-15.5) % Lymphocytes # 0.6 L (1.0-4.8) k/uL Chloride (98-107) mmol/L BUN (9-20) mg/dL Creatinine (0.66-1.25) mg/dL Glucose (74-99) mg/dL POC Glucose (mg/dL) 179 H 160 H (70-110) mg/dL Calcium (8.4-10.2) mg/dL
[2023-12-23 06:50] LABS: Anisocytosis Slight; Basophils % (A) 0 %; Eosinophils % (A) 0 %; HCT 30.6 % (39.0-53.0); Hypochromasia Moderate; Lymphocytes # (A) 0.8 k/uL (1.0-4.8); Lymphocytes % (A) 8 %; MCH 29.5 pg (25.0-35.0); MCHC 31.3 g/dL (31.0-37.0); MCV 94.2 fL (80.0-100.0); Macrocytosis Slight; Mean Platelet Volume 10.4; Monocytes # (A) 0.4 k/uL (0-1.0); Monocytes % (A) 4 %; Neutrophils # (A) 8.7 k/uL (1.3-7.7); Neutrophils % (A) 87 %; Platelet Count 258 k/uL (150-450); RBC 3.25 m/uL (4.30-5.90); RDW 18.2 % (11.5-15.5)
[2023-12-23 06:52] LABS: HGB 9.6 gm/dL (13.0-17.5)
--- NOTE | 2023-12-23 09:20 | P.PN ---
Subjective Progress Note Date: 12/22/23 Patient initially seen by Dr. Deng Alexis. Please refer to his note for details. 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 EEG was negative for seizure. Patient was seen for a follow-up. Patient denies headache. Patient speaks full sentences like "what kind of doctor are you". Patient is very hard of hearing. Some of the workup during his hospital visit consisted of. Sodium is 129-->130 --> 143 Creatinine is 5.81, now 2.63 Initial hepatic panel was elevated, but now normal.. CT the head is reported as no acute intracranial process. Routine EEG is abnormal. The background slowing is suggestive of severe encephalopathy. There is no focal slowing, epileptiform discharges or seizure on the EEG. Objective - Vital Signs Vital signs: Vital Signs Temp 97.9 F 12/22/23 08:00 Pulse 93 12/22/23 18:00 Resp 23 12/22/23 18:00 BP 98/70 12/22/23 18:00 Pulse Ox 92 L 12/22/23 18:00 FiO2 35 12/22/23 18:00 Intake & Output 12/21/23 12/22/23 12/22/23 18:59 06:59 18:59 Intake Total 1297.066 957.303 474.560 Output Total 665 735 615 Balance 632.066 222.303 -140.440 Weight 86.4 kg 86.4 kg Intake: IV 156 46 88 Furosemide 100 mg In 120 10 Sodium Chloride 0.9% 90 ml @ 10 MG/HR 10 mls/hr IV .Q10H [facility] Rx#: [id number] Normal Saline 5mL/hr 55 Pressure bag 36 36 33 Intake, IV Titration 341.066 911.303 386.560 Amount DOBUTamine DRIP 500 mg In 250 Dextrose/Water 1 250ml. bag @ 2.5 MCG/KG/MIN 6. 203 mls/hr IV .Q24H [facility] Rx#:[id number] Furosemide 100 mg In 177.500 100 Sodium Chloride 0.9% 90 ml @ 10 MG/HR 10 mls/hr IV .Q10H [facility] Rx#: [id number] Norepinephrine 4 mg In 163.566 561.303 386.560 Sodium Chloride 0.9% 250 ml @ 0.03 MCG/KG/MIN 9. 453 mls/hr IV .Q24H [facility] Rx#:[id number] Oral 800 Output: Urine 665 735 615 Other: Voiding Method Indwelling Catheter Indwelling Catheter Indwelling Catheter ABP, PAP, CO, CI - Last Documented Arterial Blood Pressure 118/51 - Exam Patient is alert and awake. Speech is clear, with no aphasia or dysarthria. Patient can name very well. He can repeat. Patient has hypophonia. Patient's comprehension is intact, as he can point to the window. On cranial nerve examination, right pupil appears slightly bigger than the left. Both are reacting. Patient is hard of hearing. Face is symmetric. Visual rivas are full with no neglect. On muscle strength testing, his left deltoid is weak about 4-, likely from shoulder issue. Otherwise biceps, food and beverage director are normal bilaterally. Lower extremities normal. No ataxia for [id number] testing. - Labs CBC & Chem 7: 12/23/23 06:42 12/23/23 05:02 Labs: Abnormal Lab Results - Last 24 Hours (Table) 12/21/23 12/22/23 12/22/23 Range/Units 19:59 04:00 04:00 WBC 11.7 H (3.8-10.6) k/uL RBC 3.36 L (4.30-5.90) m/uL Hgb 9.9 L (13.0-17.5) gm/dL Hct 31.6 L (39.0-53.0) % RDW 17.5 H (11.5-15.5) % Neutrophils # 10.3 H (1.3-7.7) k/uL Lymphocytes # 0.9 L (1.0-4.8) k/uL Chloride 108 H (98-107) mmol/L BUN 81 H (9-20) mg/dL Creatinine 2.47 H (0.66-1.25) mg/dL Glucose 180 H (74-99) mg/dL POC Glucose (mg/dL) 181 H (70-110) mg/dL Calcium 8.2 L (8.4-10.2) mg/dL 12/22/23 12/22/23 12/22/23 Range/Units 06:38 11:07 16:16 WBC (3.8-10.6) k/uL RBC (4.30-5.90) m/uL Hgb (13.0-17.5) gm/dL Hct (39.0-53.0) % RDW (11.5-15.5) % Neutrophils # (1.3-7.7) k/uL Lymphocytes # (1.0-4.8) k/uL Chloride (98-107) mmol/L BUN (9-20) mg/dL Creatinine (0.66-1.25) mg/dL Glucose (74-99) mg/dL POC Glucose (mg/dL) 192 H 176 H 179 H (70-110) mg/dL Calcium (8.4-10.2) mg/dL Assessment and Plan Assessment: This is an 83-year-old gentleman who presents because chest pain. During his hospital stay he was felt to have unstable angina/NSTEMI status post stenting of the left main and ramus. On 12/12/2019 4 at night she had 2 episodes of the cardiac arrest and in total it lasted for about 23 minutes. Status post cardiac arrest on 12/12/2023 and night in which she had 2 episodes in total lasted about 23 minutes. Patient was asystole. His cardiac arrest is most likely related to his extensive coronary artery disease. Patient is doing very well. Mentation has remarkably improved. Unstable angina/NSTEMI status post stenting of left main and ramus Paroxysmal atrial fibrillation with left bundle branch block Severe ischemic cardiomyopathy with LVEF 35 to 40% Acute kidney injury, on chronic renal disease, now requiring short-term hemodia lysis on 12/14/2023 and 12/15/2023. Acute hypoxic respiratory failure status post mechanical ventilation--extubated Transaminitis, resolved History of stroke Diabetes mellitus Hyperlipidemia Anemia Plan: Patient has been extubated, is fully awake and examination is nonfocal. Patient is following commands and examination is nonfocal. Cardiology, nephrology are consulted. Patient currently on Eliquis 2.5 mg twice daily for atrial fibrillation and Plavix 75 mg daily. Also on amiodarone. Will defer the rest of medical management to primary and other specialist. Prognosis appears good based upon clinical recovery. Neurology will follow sporadically.
[2023-12-23 09:34] LABS: Glucose,Whole Blood 169 mg/dL (70-110)
--- NOTE | 2023-12-23 09:50 | XR ---
EXAMINATION TYPE: XR chest 1V portable DATE OF EXAM: 12/23/2023 5:17 AM CLINICAL INDICATION:Male, 83 years old with history of CHF; [facility] COMPARISON: Chest radiographs from TECHNIQUE: XR chest 1V portable Frontal view of the chest. FINDINGS: Lungs/Pleura: No evidence of focal consolidation or pneumothorax. Blunting of the costophrenic angles is present. Pulmonary vascularity: Pulmonary vascular congestion. Heart/mediastinum: Cardiomediastinal silhouette is enlarged and stable. Musculoskeletal: No acute osseous pathology. IMPRESSION: Similar, Cardiomegaly, pulmonary vascular congestion and bilateral pleural effusions. Correlate with BNP for congestive heart failure.
--- NOTE | 2023-12-23 11:00 | P.PN ---
Subjective Progress Note Date: 12/23/23 83-year-old male patient who sustained a cardiac yesterday at 2033 and following that the patient was moved to the intensive care unit. The patient was found in asystole. He received CPR based on ACLS protocol. Initial downtime was around 25 to 30 minutes and the patient received 4 rounds of epinephrine and CPR. During the process the patient was also found to be in V-fib and was defibrillated. He was brought into the intensive care unit where he had another code at 2106 and the second code was brief. He was placed on pressors. He is already intubated on mechanical ventilator.. This morning, the patient is on propofol which is running at 50 mcg/kg/min. He is hypotensive and is on norepinephrine 0.18 micrograms per kilogram per minute. He was a difficult IV access. Unable to insert an arterial line. The triple-lumen catheter was inserted in the right femoral vein for hemodynamic support and pressors. At this point in time, he is on assist-control mode at a rate of 20, tidal volume of 400, FiO2 of 70% with a PEEP of 5. The chest x-ray is showing adequate positioning of the ET tube. Orotracheal tube was initially in the right mainstem that was pulled out. No change in the bilateral opacities seen. The patient also has a moderate-sized right-sided pleural effusion along with pulm vascular congestion. Blood work from today shows a WBC count 9.9 with a hemoglobin 10.9 and a platelet count of 147. pH is 7.43 with a pCO2 of 34 and a pO2 of 84. Sodium levels at 127 and potassium levels at 4.3 with a serum bicarb of 17 and the BUN is at 80 with a creatinine of 4.2 as the patient has an acute on top of chronic kidney injury. This could have been also related to contrast as the patient's creatinine was gradually going up following his cardiac procedures. Troponin currently is at 3.07 and it is uptrending again post cardiac arrest. Cardiology was informed of those changes. No plans for any further intervention. In terms of his cardiac history, the patient is followed by Dr. Nelson who presents with symptoms of chest discomfort. He has a known history of CAD underwent stenting of the LAD in September [address] Remy and subsequently was readmitted about a week after with acute thrombosis and underwent angioplasty and thrombectomy. He underwent repeat cardiac catheterization in August and was found to have totally occluded LAD with distal left main disease but was felt to be a poor candidate for any surgical intervention. He presents with symptoms of chest discomfort and dyspnea at rest yesterday He usually has exertional angina pectoris with dyspnea on exertion. His activity is limited. He has evidence of cardiomyopathy with segmental wall motion abnormality consistent with his initial presentation with myocardial infarction.Patient is status attempted catheterization with Dr. Nelson on 12/09/2023. Dr. Nelson had difficulty obtaining access and his cardiac catheterization was canceled. He underwent repeat cardiac catheterization with Dr. Remy with PCI of left main and ramus. Patient was hypotensive during the procedure. Patient was reevaluated today on 12/14/2023, patient remains in the ICU, intubated and mechanically ventilated. Patient was initially admitted on 12/05 with unstable angina, chest pain, severe coronary artery disease, and he was never felt to be a candidate for any surgical intervention. He had chronically occluded ostial LAD and ischemic cardiomyopathy. In addition he had chronic kidney disease and diabetes. As noted above the patient had cardiac arrest x 2 remains intubated and mechanically ventilated, he is on assist-control rate of 20 tidal volume 400 FiO2 50% PEEP of 5 ABG showed a pO2 of 88 pCO2 35 pH of 7.41. Patient may have developed anoxic brain injury, hence neurology will be consulted. Patient required a right brachial arterial line placement today, and this was done uneventfully. Patient will be started today on tube feeding. Looking back at the patient's history, patient clearly has a significant cardiac history, on 12/11, patient had V-fib cardiac arrest x 2 and he had CPR at 1 time it was 20 minutes the second time was 8 minutes of CPR. Obviously we are quite concerned about the possibility of anoxic brain injury. Chest x-ray is showing evidence of pulmonary edema, underlying pneumonia is not entirely ruled out but felt to be less likely patient is requiring norepinephrine at 0.16 mcg/kg/min also requiring propofol at 40 mcg/kg/min, FiO2 was decreased down to 45% today. Renal functioning is continuing to worse, patient is not making much urine, and spite of giving him Lasix and Bumex renal replacement therapy will be initiated today. Dialysis catheter was placed this morning. WBC count today is 10.3 hemoglobin is 9.9 basic metabolic profile is normal except for sodium of 129, BUN is up to 88 creatinine 5.81 blood sugar is 272 Patient was reevaluated today on 12/15/2023, remains in the ICU, intubated and mechanically ventilated he is on assist-control rate of 20 tidal volume 400 FiO2 35% and PEEP of 5 ABG showed a pO2 of 77 pCO2 35 pH of 7.45, patient is undergoing hemodialysis this morning. Remains on amiodarone drip, propofol at 25 mcg/kg/min is also on norepinephrine drip at 0.14 mcg/kg/min remains empirically on Zosyn. Chest x-ray is consistent with diffuse pleuroparenchymal changes/pulmonary edema picture, possible ARDS but I believe that pulmonary edema is really cardiogenic in nature. Sibling has history of ischemic cardiomyopathy. CBC showed WBC of 13.7 hemoglobin 9.8. Basic metabolic profile is normal sodium is 130, BUN is 77 creatinine 4.50, again the patient will have hemodialysis today neurologically, the patient is not responding to any stimuli, being followed by neurology, and I honestly believe the patient has most likely severe anoxic brain injury. Off sedation yesterday, patient was opening his eyes only but no other responses noted Evaluated today on 12/16/2023, remains in the ICU, intubated and mechanically ventilated, on assist-control rate of 20 tidal volume 400 FiO2 35% PEEP of 5 ABG showed a pO2 of 72 pCO2 34 pH of 7.46. Patient is opening eyes only but no responses whatsoever except opening eyes. And no purposeful movement is noted. He is off sedation for the last 24 hours, still requiring norepinephrine at 0.09 mcg/kg/min remains on Zosyn empirically patient has a decent urine output of 50 to 100 cc/h chest x-ray continues to show evidence of pulmonary edema or possible aspiration pneumonia. Patient is being treated for both. I suspect clinically that this is more of pulmonary edema secondary to severe LV dysfunction. At any rate we will continue to keep the patient off sedation as long as tolerated to fully assess mental status, presently although we could get is patient opening his eyes only. WBC count is 13.2 hemoglobin 9.8. Basic metabolic profile is normal BUN is 57 creatinine 2.93, patient has been on hemodialysis since 12/13, his last dialysis was yesterday. Urine output is picking up slightly. Patient was reevaluated today on 12/17/2023, remains intubated but not sedated, patient is off propofol, patient is awake, follows simple instructions like squeezing hands, wiggling toes, and closing and opening eyes. Seems to be appropriate, hence I plan to give the patient today a trial of pressure support and CPAP. His ABG showed a pO2 of 90 pCO2 37 pH of 7.43, patient has improvement in his urine output, his last hemodialysis was on 12/14, and his urine output seems to be stable, continues to receive tube feeds, still requiring norepinephrine at 0.1 mcg/kg/min remains on Zosyn and remains intermittently on diuretics. Chest x-ray is showing diffuse pleural-parenchymal changes consistent with pulmonary edema and/or pneumonia. Patient is receiving treatment for both the last chest x-ray is showing improvement sputum cultures have been nondiagnostic, blood cultures have been negative. WBC count today is 14.3 hemoglobin is 9.9, basic metabolic profile is normal BUN is 67 creatinine 2.83 steadily improving over the last few days. Reevaluate today on 12/18/2023, patient was extubated yesterday, he is presently on BiPAP 14/5/35%. Patient remains on norepinephrine at 0.04 mcg/kg/min, he is off fluids at KVO, his last hemodialysis was 12/14, urine output is reasonable, patient may not require any more hemodialysis. Patient is to have a swallow ev aluation today, remains on Zosyn for presumptive aspiration pneumonia. At any rate patient tolerated the extubation well over the last 24 hours, but he remains marginal and I would like to continue to monitor the patient in the ICU for at least the next 24 to 48 hours. Chest x-ray continues to show diffuse pleural-parenchymal changes, suspicious for pulmonary edema or aspiration pneumonia but improving, CBC is relatively normal basic metabolic profile is normal BUN is 67 creatinine down to 2.51 Reevaluate today on 12/19/23, patient continues to tolerate extubation for the last 2 days, however still on BiPAP 14/5/35%, still requiring norepinephrine at 0.04 mcg/kg/min. Chest x-ray is showing worsening right-sided pleural effusion and right airspace disease, I am recommending more diuretics on this patient, patient remains on antibiotics empirically. The findings on the chest x-ray is a bit concerning, clinically the patient is doing well, and no major setback clinically compared to yesterday WBC count is 13.3 hemoglobin is 9.8 basic metabolic profile is normal BUN is 174 creatinine 2.34 blood cultures and sputum cultures have been negative/nondiagnostic. Patient was today on 12/20/2023, patient was extubated now 3 days ago, continues to tolerate the extubation well. However his overall clinical status remains marginal at best. Patient is not quite ready to be transferred out of the ICU mostly because he is still requiring norepinephrine for low blood pressure, and he is now on Lasix drip for what seems to be a picture of congestive heart failure secondary to ischemic cardiomyopathy and LV dysfunction. His ejection fraction is no more than 25%. Yesterday I recommended Lasix because he was developing significant right-sided pleural effusion and that seems to be impr griffin today. Patient is now on 3 L nasal cannula, intermittently on BiPAP 14/5/35%. Patient had a negative balance of 2580 over the last 24 hours since he was placed on Lasix drip. Today I am recommending dobutamine at 2.5 mcg/kg/min, on a trial basis considering that the patient has severe LV dys function, and may taper the norepinephrine down if he does better with dobutamine. Diet will be advanced, he is now on pured diet. Still concerned about potential aspiration. And this was recommended by speech therapy. Antibiotics salguero patient remains on Zosyn empirically. Chest x-ray continues to show small right-sided pleural effusion and bibasilar infiltrates/atelectasis/pneumonia suspect the findings are also findings of congestive heart failure. Systolic in nature WBC count today is 9.3 hemoglobin 9.7. Basic metabolic profile is normal renal profile is slightly worse today BUN of 73 creatinine 2.49, nonetheless the patient is not oliguric. And he is responding well to Lasix drip The patient is seen today December 21, 2023 in follow-up in the intensive care unit. He is currently resting in bed. Awake and alert in no acute distress. He was extubated back on December 17, 2023. He is currently maintaining good O2 saturations in the 90s on 3 L/min per nasal cannula. Chest x-ray shows similar cardiomegaly with bilateral pleural effusion and associated atelectasis. Cultures revealed no growth. Sputum culture revealed no growth. White count 8.5. Hemoglobin 9.2. Platelets 257. Sodium 142. Potassium 4.0. Bicarb 19. BUN 72. Creatinine 2.49. Glucose 197. He is continued on Lasix drip at 10 mg/h. Dobutamine at 2.5 mcg/kg/min. Norepinephrine at 6 mcg/min. He is an ticoagulated with Eliquis. He is currently in a -1 L balance. The patient is seen today December 22, 2023 in follow-up in the intensive care unit. He is currently awake and alert in no acute distress. Maintaining O2 saturations in the 90s on 3 L/min per nasal cannula. He did utilize BiPAP last night 14/5 and 35% FiO2. He is still requiring norepinephrine at 0.11 mcg/kg/min. Lasix at 10 mg/h. Dobutamine at 2.5 g/kg/min.. Platelets 334. Sodium 143. Potassium 3.8. Bicarb 23. BUN 81. Creatinine 2.47. Glucose 180. He remains in a positive balance today of 850 MLS. He is anticoagulated with Eliquis. Continue on DuoNeb ventilations, Pulmicort and Perforomist inhalations. Remains on Zaroxolyn. The patient is seen today December 23, 2023 in follow-up in the intensive care unit. He is awake and alert no acute distress. Sitting up in bed. He is maintaining good O2 saturations in the 90s on 3 L/min per nasal cannula. He did utilize BiPAP last night 14/5 and 30% FiO2. He is on normal saline at KVO. Still requiring a small amount of norepinephrine at 0.04 mcg/kg/min or 3.4 mcg/min. He is off the Lasix drip. He is off the dobutamine drip. He is on Lasix at 60 mg IV every 8 hours. Currently in a -500 mL balance. White count 10.0. Hemoglobin 9.6. Platelets 258. Sodium 143. Potassium 3.0. Bicarb 25. BUN 87. Creatinine 2.63. Glucose 141. Cultures revealed no growth. Sputum culture revealed no growth. He remains on bronchodilators. Anticoagulated with Eliquis. X-ray reveals similar findings with cardiomegaly and pulmonary vascular congestion and bilateral pleural effusions. Objective - Vital Signs Vital signs: Vital Signs Temp 97.2 F L 12/23/23 08:00 Pulse 95 12/23/23 10:00 Resp 16 12/23/23 10:00 BP 127/79 12/23/23 09:00 Pulse Ox 96 12/23/23 10:00 FiO2 30 12/23/23 09:00 Intake & Output 12/22/23 12/23/23 12/23/23 18:59 06:59 18:59 Intake Total 507.102 432.979 126.295 Output Total 890 585 95 Balance -382.898 -152.021 31.295 Weight 86.4 kg 86.3 kg Intake: IV 104 188 117 Normal Saline 5mL/hr 65 55 5 Potassium Chloride 20 meq 100 100 In Water For Injection 1 100ml.bag @ 50 mls/hr IVPB Q2H YASEMIN Rx#: [id number] Pressure bag 39 33 12 Intake, IV Titration 403.102 244.979 9.295 Amount Norepinephrine 4 mg In 403.102 244.979 9.295 Sodium Chloride 0.9% 250 ml @ 0.03 MCG/KG/MIN 9. 453 mls/hr IV .Q24H YASEMIN Rx#:[id number] Output: Urine 890 585 95 Other: Voiding Method Indwelling Catheter Indwelling Catheter # Bowel Movements 1 ABP, PAP, CO, CI - Last Documented Arterial Blood Pressure 108/64 - Exam GENERAL EXAM: Alert, 83-year-old male, resting in bed, on 3 L nasal cannula, in no apparent distress. HEAD: Normocephalic. EYES: Normal reaction of pupils, equal size. NOSE: Clear with pink turbinates. THROAT: No erythema or exudates. NECK: No masses, no JVD. CHEST: No chest wall deformity. LUNGS: Equal air entry with no crackles in the bilateral bases. CVS: S1 and S2 normal with no audible murmur, regular rhythm. ABDOMEN: No hepatosplenomegaly, normal bowel sounds, no guarding or rigidity. SPINE: No scoliosis or deformity SKIN: No rashes CENTRAL NERVOUS SYSTEM: No focal deficits, tone is normal in all 4 extremities. EXTREMITIES: There is 1+ peripheral edema. No clubbing, no cyanosis. P eripheral pulses are intact. - Labs CBC & Chem 7: 12/23/23 06:42 12/23/23 05:02 Labs: Abnormal Lab Results - Last 24 Hours (Table) 04/11/1412/22/23 12/22/23 Range/Units 11:07 16:16 19:58 RBC (4.30-5.90) m/uL Hgb (13.0-17.5) gm/dL Hct (39.0-53.0) % MCHC (31.0-37.0) g/dL RDW (11.5-15.5) % Neutrophils # (1.3-7.7) k/uL Lymphocytes # (1.0-4.8) k/uL Potassium (3.5-5.1) mmol/L Chloride (98-107) mmol/L BUN (9-20) mg/dL Creatinine (0.66-1.25) mg/dL Glucose (74-99) mg/dL POC Glucose (mg/dL) 176 H 179 H 160 H (70-110) mg/dL Calcium (8.4-10.2) mg/dL 12/23/23 12/23/23 12/23/23 Range/Units 03:50 05:02 06:25 RBC 2.62 L (4.30-5.90) m/uL Hgb 7.6 L D (13.0-17.5) gm/dL Hct 24.7 L (39.0-53.0) % MCHC 30.5 L (31.0-37.0) g/dL RDW 18.1 H (11.5-15.5) % Neutrophils # (1.3-7.7) k/uL Lymphocytes # 0.6 L (1.0-4.8) k/uL Potassium 3.0 L (3.5-5.1) mmol/L Chloride 109 H (98-107) mmol/L BUN 87 H (9-20) mg/dL Creatinine 2.63 H (0.66-1.25) mg/dL Glucose 141 H (74-99) mg/dL POC Glucose (mg/dL) 165 H (70-110) mg/dL Calcium 8.2 L (8.4-10.2) mg/dL 12/23/23 12/23/23 Range/Units 06:42 09:33 RBC 3.25 L (4.30-5.90) m/uL Hgb 9.6 L D (13.0-17.5) gm/dL Hct 30.6 L (39.0-53.0) % MCHC (31.0-37.0) g/dL RDW 18.2 H (11.5-15.5) % Neutrophils # 8.7 H (1.3-7.7) k/uL Lymphocytes # 0.8 L (1.0-4.8) k/uL Potassium (3.5-5.1) mmol/L Chloride (98-107) mmol/L BUN (9-20) mg/dL Creatinine (0.66-1.25) mg/dL Glucose (74-99) mg/dL POC Glucose (mg/dL) 169 H (70-110) mg/dL Calcium (8.4-10.2) mg/dL Assessment and Plan Assessment: Cardiac arrest x 2 Severe coronary artery disease and acute non-ST elevation myocardial infarction Acute hypoxic respiratory failure secondary to above Cardiogenic shock remains on norepinephrine Acute systolic congestive heart failure Anoxic encephalopathy, recovered Acute kidney injury, received hemodialysis x 2 last 1 on 12/15/2023. Only 400 mls removed each time History of underlying coronary artery disease with previous stent of LAD September 22, 2022, complicated by acute thrombosis requiring angioplasty and thrombectomy repeat cardiac catheterization 09/12 showed totally occluded LAD with distal left main disease felt to be poor candidate for surgical intervention Severe ischemic cardiomyopathy and LV dysfunction with ejection fraction of 35 to 40% History of CVA History of medical debility and multiple comorbidities Type 2 diabetes Dyslipidemia Plan: The patient was seen and evaluated Chest x-ray, labs and medications reviewed Stable and on 3 L nasal cannula Titrate down the norepinephrine as tolerated Off Lasix drip, off dobutamine drip Nephrology and cardiology are following Overall prognosis is quite guarded We will continue to follow I have personally seen and examined the patient, performed the documentation and the assessment and plan as written. Number of minutes spent on the visit: 10.
[2023-12-23] MEDS: DOBUTamine DRIP 500 MG in DEXTROSE/WATER 1 250ML.BAG IV SCH (11:27)
[2023-12-23 11:35] LABS: Glucose,Whole Blood 185 mg/dL (70-110)
--- NOTE | 2023-12-23 11:53 | P.PN ---
Subjective patient is seen for follow-up for acute kidney injury and chronic kidney disease. Patient has received 2 treatments of hemodialysis on 12/14/2023 and 12/15/2023. hemodialysis on hold since 12/15/2023 urine output had improved and hemodialysis was on hold however once the dobutamine drip was discontinued and Lasix was switched to IV push Lasix abdullahi pop's urine output has dropped again to about 20 mL an hour. scheduled for restarting dobutamine today. Currently off of BiPAP. serum creatinine increased to 2.6 today. urine output at about 20 ML per hour Objective - Vital Signs Vital signs: Vital Signs Temp 97.2 F L 12/23/23 08:00 Pulse 86 12/23/23 11:30 Resp 13 12/23/23 11:30 BP 127/79 12/23/23 09:00 Pulse Ox 100 12/23/23 11:30 FiO2 30 12/23/23 09:00 Intake & Output 12/22/23 12/23/23 12/23/23 18:59 06:59 18:59 Intake Total 507.102 432.979 229.295 Output Total 890 585 100 Balance -382.898 -152.021 129.295 Weight 86.4 kg 86.3 kg Intake: IV 104 188 220 Normal Saline 5mL/hr 65 55 5 Potassium Chloride 20 meq 100 200 In Water For Injection 1 100ml.bag @ 50 mls/hr IVPB Q2H YASEMIN Rx#: [id number] Pressure bag 39 33 15 Intake, IV Titration 403.102 244.979 9.295 Amount Norepinephrine 4 mg In 403.102 244.979 9.295 Sodium Chloride 0.9% 250 ml @ 0.03 MCG/KG/MIN 9. 453 mls/hr IV .Q24H YASEMIN Rx#:[id number] Output: Urine 890 585 100 Other: Voiding Method Indwelling Catheter Indwelling Catheter # Bowel Movements 1 ABP, PAP, CO, CI - Last Documented Arterial Blood Pressure 100/53 - Exam patient is awake comfortable, no acute distress Alert oriented 3 Examination of the heart S1 and S2 Examination the lungs bilateral breath sounds are heard, decreased breath sounds at bases Abdomen is soft obese nontender Examination lower extremities shows edema 1+ bilaterally, scrotal edema noted [employer] exam grossly intact - Labs CBC & Chem 7: 12/23/23 06:42 12/23/23 05:02 Labs: Abnormal Lab Results - Last 24 Hours (Table) 12/22/23 12/22/23 12/23/23 Range/Units 16:16 19:58 03:50 RBC 2.62 L (4.30-5.90) m/uL Hgb 7.6 L D (13.0-17.5) gm/dL Hct 24.7 L (39.0-53.0) % MCHC 30.5 L (31.0-37.0) g/dL RDW 18.1 H (11.5-15.5) % Neutrophils # (1.3-7.7) k/uL Lymphocytes # 0.6 L (1.0-4.8) k/uL Potassium (3.5-5.1) mmol/L Chloride (98-107) mmol/L BUN (9-20) mg/dL Creatinine (0.66-1.25) mg/dL Glucose (74-99) mg/dL POC Glucose (mg/dL) 179 H 160 H (70-110) mg/dL Calcium (8.4-10.2) mg/dL 12/23/23 12/23/23 12/23/23 Range/Units 05:02 06:25 06:42 RBC 3.25 L (4.30-5.90) m/uL Hgb 9.6 L D (13.0-17.5) gm/dL Hct 30.6 L (39.0-53.0) % MCHC (31.0-37.0) g/dL RDW 18.2 H (11.5-15.5) % Neutrophils # 8.7 H (1.3-7.7) k/uL Lymphocytes # 0.8 L (1.0-4.8) k/uL Potassium 3.0 L (3.5-5.1) mmol/L Chloride 109 H (98-107) mmol/L BUN 87 H (9-20) mg/dL Creatinine 2.63 H (0.66-1.25) mg/dL Glucose 141 H (74-99) mg/dL POC Glucose (mg/dL) 165 H (70-110) mg/dL Calcium 8.2 L (8.4-10.2) mg/dL 12/23/23 12/23/23 Range/Units 09:33 11:33 RBC (4.30-5.90) m/uL Hgb (13.0-17.5) gm/dL Hct (39.0-53.0) % MCHC (31.0-37.0) g/dL RDW (11.5-15.5) % Neutrophils # (1.3-7.7) k/uL Lymphocytes # (1.0-4.8) k/uL Potassium (3.5-5.1) mmol/L Chloride (98-107) mmol/L BUN (9-20) mg/dL Creatinine (0.66-1.25) mg/dL Glucose (74-99) mg/dL POC Glucose (mg/dL) 169 H 185 H (70-110) mg/dL Calcium (8.4-10.2) mg/dL Assessment and Plan Assessment: 1. Acute kidney injury secondary to hemodynamic ATN, cardiorenal syndrome and cardiac arrest. Also component of contrast-induced acute kidney injury. Creatinine up to 5.8 dated December 14, 2023. Was oliguric, now nonoliguric. UA benign. No hydronephrosis noted on CAT scan. urine output has dropped again once the dobutamine and Lasix drip was discontinued. Patient will need to resume renal replacement therapy to help with volume overload. Temporary dialysis catheter will be switched to IJ permacath and we will restart hemodialysis. 2. 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 3. Coronary artery disease status postcardiac catheterization with stent placement on December 10, 2023. Not a candidate for CABG. 4. Metabolic acidosis secondary to acute kidney injury. Better. 5. Hyponatremia. Component of poor solute intake. Hypervolemic. Better. 6. Diabetes mellitus. 7. Possible pneumonia on antibiotics. ID following. 8. Volume overload. Improved with ultrafiltration and better urine output. status post dobutamine and Lasix drip 9. Status postcardiac arrest - V-fib and PEA. 10. Cardiomyopathy with EF of 35-40% Plan: agree with increasing IV Lasix. continue Zaroxolyn consult vascular surgery for IJ permacath placement as patient will need to restart hemodialysis since renal function deteriorates once dobutamine is discontinued. Patient also remains volume overloaded. Replace potassium
[2023-12-23] MEDS: MIDODRINE 5 MG TAB PO SCH (11:57)
--- NOTE | 2023-12-23 13:54 | PN ---
PROGRESS NOTE HISTORY OF PRESENT ILLNESS: Gregg is an 83-year-old gentleman with coronary artery disease, status post angioplasty; ischemic cardiomyopathy with severe LV dysfunction; chronic systolic heart failure; chronic renal insufficiency; continues to do poorly and is in ICU. There is still requiring Levophed for hypotension. I stopped the dobutamine yesterday and changed his Lasix drip. His urine output has been gradually coming down over the last 48 hours, and today, he is barely making 20 mL of urine per hour. The patient denies any chest pain or difficulty in breathing. I am going to resume the IV dobutamine and increase the dose of IV Lasix. OBJECTIVE: VITAL SIGNS: Heart rate is 90 beats per minute, blood pressure is 122/65, respiratory rate 18, O2 saturation is 96% on 3 L. NECK: There is no jugular venous distention. CHEST: Reveals diminished air entry at the bases. HEART: Reveals first and second heart sounds. An ejection systolic murmur in the aortic area. ABDOMEN: Soft. EXTREMITIES: Reveals bilateral pitting edema. LABORATORY DATA: Show that the BUN is 87, which has worsened from yesterday. Creatinine is 2.6, which had gone up from 2.4 yesterday. CURRENT MEDICATIONS: Include; 1. Cordarone 200 daily. 2. Eliquis 2.5 b.i.d. 3. Lipitor 80 daily. 4. Plavix 75 daily. 5. Zaroxolyn 5 b.i.d. 6. Lopressor 12.5 b.i.d. 7. Levophed. 8. Ranexa. ASSESSMENT: 1. Chronic systolic heart failure. 2. Hypotension. 3. Coronary artery disease, status post angioplasty. 4. Acute on chronic renal failure. PLAN: We will resume the dobutamine. Increase the dose of Lasix. Continue rest of his medications. MMODL / IJN: [id number] /
--- NOTE | 2023-12-23 14:51 | P.PN ---
Subjective Progress Note Date: 12/23/23 Principal diagnosis: Reason for follow-up is fever possible pneumonia Patient is a 83-year-old male past medical history significant for diabetes mellitus hypertension MT CVA TIA presenting to the hospital with chest pain shortness of breath also noticed to be febrile prompting this consultation. Patient did have worsening of his respiratory status and also cardiac arrest with the patient has been intubated and transferred to the ICU patient subsequently has been extubated On today's evaluation that is 12/23/2023, patient has been afebrile, patient is breathing comfortably and is currently on 3 L nasal cannula oxygen, patient denies having any chest pain did have occasional cough no sputum production no nausea vomiting no abdominal pain and no diarrhea has been reported. Patient white count is 10.0 creatinine is 2.60 chest x-ray mostly CHF pattern Objective - Vital Signs Vital signs: Vital Signs Temp 97.6 F 12/23/23 12:00 Pulse 87 12/23/23 12:00 Resp 31 H 12/23/23 12:00 BP 127/79 12/23/23 09:00 Pulse Ox 98 12/23/23 12:00 FiO2 30 12/23/23 09:00 Intake & Output 12/22/23 12/23/23 12/23/23 18:59 06:59 18:59 Intake Total 507.102 432.979 252.722 Output Total 890 585 105 Balance -382.898 -152.021 147.722 Weight 86.4 kg 86.3 kg Intake: IV 104 188 223 Normal Saline 5mL/hr 65 55 5 Potassium Chloride 20 meq 100 200 In Water For Injection 1 100ml.bag @ 50 mls/hr IVPB Q2H YASEMIN Rx#: [id number] Pressure bag 39 33 18 Intake, IV Titration 403.102 244.979 29.722 Amount Norepinephrine 4 mg In 403.102 244.979 29.722 Sodium Chloride 0.9% 250 ml @ 0.03 MCG/KG/MIN 9. 453 mls/hr IV .Q24H YASEMIN Rx#:[id number] Output: Urine 890 585 105 Other: Voiding Method Indwelling Catheter Indwelling Catheter Indwelling Catheter # Bowel Movements 0 ABP, PAP, CO, CI - Last Documented Arterial Blood Pressure 101/47 - Exam GENERAL DESCRIPTION: An elderly male lying in bed in no distress RESPIRATORY SYSTEM: Unlabored breathing , decreased breath sounds at bases HEART: S1 S2 regular rate and rhythm , ABDOMEN: Soft , no tenderness EXTREMITIES: No edema feet - Labs CBC & Chem 7: 12/23/23 06:42 12/23/23 05:02 Labs: Abnormal Lab Results - Last 24 Hours (Table) 12/22/23 12/22/23 12/23/23 Range/Units 16:16 19:58 03:50 RBC 2.62 L (4.30-5.90) m/uL Hgb 7.6 L D (13.0-17.5) gm/dL Hct 24.7 L (39.0-53.0) % MCHC 30.5 L (31.0-37.0) g/dL RDW 18.1 H (11.5-15.5) % Neutrophils # (1.3-7.7) k/uL Lymphocytes # 0.6 L (1.0-4.8) k/uL Potassium (3.5-5.1) mmol/L Chloride (98-107) mmol/L BUN (9-20) mg/dL Creatinine (0.66-1.25) mg/dL Glucose (74-99) mg/dL POC Glucose (mg/dL) 179 H 160 H (70-110) mg/dL Calcium (8.4-10.2) mg/dL 12/23/23 12/23/23 12/23/23 Range/Units 05:02 06:25 06:42 RBC 3.25 L (4.30-5.90) m/uL Hgb 9.6 L D (13.0-17.5) gm/dL Hct 30.6 L (39.0-53.0) % MCHC (31.0-37.0) g/dL RDW 18.2 H (11.5-15.5) % Neutrophils # 8.7 H (1.3-7.7) k/uL Lymphocytes # 0.8 L (1.0-4.8) k/uL Potassium 3.0 L (3.5-5.1) mmol/L Chloride 109 H (98-107) mmol/L BUN 87 H (9-20) mg/dL Creatinine 2.63 H (0.66-1.25) mg/dL Glucose 141 H (74-99) mg/dL POC Glucose (mg/dL) 165 H (70-110) mg/dL Calcium 8.2 L (8.4-10.2) mg/dL 12/23/23 12/23/23 Range/Units 09:33 11:33 RBC (4.30-5.90) m/uL Hgb (13.0-17.5) gm/dL Hct (39.0-53.0) % MCHC (31.0-37.0) g/dL RDW (11.5-15.5) % Neutrophils # (1.3-7.7) k/uL Lymphocytes # (1.0-4.8) k/uL Potassium (3.5-5.1) mmol/L Chloride (98-107) mmol/L BUN (9-20) mg/dL Creatinine (0.66-1.25) mg/dL Glucose (74-99) mg/dL POC Glucose (mg/dL) 169 H 185 H (70-110) mg/dL Calcium (8.4-10.2) mg/dL Assessment and Plan (1) Fever and chills Current Visit: Yes Status: Acute Code(s): R50.9 - FEVER, UNSPECIFIED SNOMED Code(s): 866353878 (2) Sepsis Current Visit: Yes Status: Acute Code(s): A41.9 - SEPSIS, UNSPECIFIED ORGA NIS SNOMED Code(s): 36377431 (3) Aspiration pneumonia Current Visit: Yes Status: Acute Code(s): J69.0 - PNEUMONITIS DUE TO INHALATION OF FOOD AND VOMIT SNOMED Code(s): 568618559 Plan: 1patient presented hospital with chest pain noticed to have a fever on admission and another fever this morning did have predominantly respiratory symptoms with a question of possible pneumonia versus intra-abdominal pathology, but we did have a negative UA no evidence of any cellulitis or joint swelling 2-patient did have cardiac arrest and admission to the ICU and for possible aspiration, blood and sputum culture so far negative, the patient subsequently has been extubated 3-patient is afebrile, white count back to normal and will be monitored closely off antibiotic therapy at this point Dictation was produced using [employer] software. please excuse any grammatical, word or spelling errors.
[2023-12-23] MEDS: FUROSEMIDE 10 MG/ML 10 ML VIAL IV SCH (16:58)
[2023-12-23 17:00] LABS: Glucose,Whole Blood 150 mg/dL (70-110)
[2023-12-23 17:35] LABS: African American GFR (CKD) 22 (>60 ml/min/1.73 sqM); Anion Gap 11 mmol/L; Blood Urea Nitrogen 90 mg/dL (9-20); Calcium 8.2 mg/dL (8.4-10.2); Carbon Dioxide 24 mmol/L (22-30); Chloride 109 mmol/L (98-107); Glucose 139 mg/dL (74-99); Magnesium 2.1 mg/dL (1.6-2.3); Non-African American GFR(CKD) 19 (>60 ml/min/1.73 sqM); Potassium 3.6 mmol/L (3.5-5.1); Sodium 144 mmol/L (137-145)
[2023-12-23 20:16] LABS: Glucose,Whole Blood 119 mg/dL (70-110)
[2023-12-24 05:16] LABS: Anisocytosis Slight; Basophils % (A) 0 %; Eosinophils % (A) 0 %; HCT 30.8 % (39.0-53.0); HGB 9.3 gm/dL (13.0-17.5); Hypochromasia Moderate; Lymphocytes # (A) 0.5 k/uL (1.0-4.8); Lymphocytes % (A) 6 %; MCH 28.8 pg (25.0-35.0); MCHC 30.3 g/dL (31.0-37.0); MCV 95.1 fL (80.0-100.0); Macrocytosis Slight; Mean Platelet Volume 8.6; Monocytes # (A) 0.3 k/uL (0-1.0); Monocytes % (A) 4 %; Neutrophils # (A) 7.3 k/uL (1.3-7.7); Neutrophils % (A) 88 %; Platelet Count 287 k/uL (150-450); RBC 3.24 m/uL (4.30-5.90); RDW 18.5 % (11.5-15.5); WBC 8.3 k/uL (3.8-10.6)
[2023-12-24 05:38] LABS: African American GFR (CKD) 22 (>60 ml/min/1.73 sqM); Anion Gap 10 mmol/L; Blood Urea Nitrogen 93 mg/dL (9-20); Calcium 8.4 mg/dL (8.4-10.2); Carbon Dioxide 24 mmol/L (22-30); Chloride 109 mmol/L (98-107); Glucose 99 mg/dL (74-99); Non-African American GFR(CKD) 19 (>60 ml/min/1.73 sqM); Potassium 3.2 mmol/L (3.5-5.1); Sodium 143 mmol/L (137-145)
[2023-12-24 06:09] LABS: Glucose,Whole Blood 109 mg/dL (70-110)
[2023-12-24] MEDS: POTASSIUM CHLORIDE 20 MEQ in WATER FOR INJECTION 1 100ML.BAG IVPB SCH (08:09)
--- NOTE | 2023-12-24 08:27 | XR ---
EXAMINATION TYPE: XR chest 1V portable DATE OF EXAM: 12/24/2023 4:30 AM CLINICAL INDICATION:Male, 83 years old with history of Bipap dependent respiratory failure; [facility] COMPARISON: Chest radiograph from one day prior. TECHNIQUE: XR chest 1V portable Frontal view of the chest. FINDINGS: FINDINGS: Lungs/Pleura: No evidence of focal consolidation or pneumothorax. Blunting of the costophrenic angles is present. Pulmonary vascularity: Pulmonary vascular congestion. Heart/mediastinum: Cardiomediastinal silhouette is enlarged and stable. Musculoskeletal: No acute osseous pathology. IMPRESSION: Similar, Cardiomegaly, pulmonary vascular congestion and bilateral pleural effusions. Correlate with BNP for congestive heart failure.
--- NOTE | 2023-12-24 09:23 | P.PN ---
Subjective Progress Note Date: 12/23/23 12/23/2023: Patient was seen for a follow-up. Patient is on BiPAP. He wants the mask off. He denies any headache by nodding appropriately. He is off pressors. No new concerns. 12/22/2023: Patient initially seen by Dr. Deng Alexis. Please refer to his note for details. 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 EEG was negative for seizure. Patient was seen for a follow-up. Patient denies headache. Patient speaks full sentences like "what kind of doctor are you". Patient is very hard of hearing. Some of the workup during his hospital visit consisted of. Sodium is 129-->130 --> 143 Creatinine is 5.81, now 2.63 Initial hepatic panel was elevated, but now normal.. CT the head is reported as no acute intracranial process. Routine EEG is abnormal. The background slowing is suggestive of severe encephalopathy. There is no focal slowing, epileptiform discharges or seizure on the EEG. Objective - Vital Signs Vital signs: Vital Signs Temp 97.0 F L 12/23/23 16:00 Pulse 92 12/23/23 17:15 Resp 30 H 12/23/23 17:15 BP 127/79 12/23/23 09:00 Pulse Ox 97 12/23/23 17:15 FiO2 30 12/23/23 09:00 Intake & Output 12/22/23 12/23/23 12/23/23 18:59 06:59 18:59 Intake Total 507.102 432.979 267.722 Output Total 890 585 205 Balance -382.898 -152.021 62.722 Weight 86.4 kg 86.3 kg Intake: IV 104 188 238 Normal Saline 5mL/hr 65 55 5 Potassium Chloride 20 meq 100 200 In Water For Injection 1 100ml.bag @ 50 mls/hr IVPB Q2H YASEMIN Rx#: [id number] Pressure bag 39 33 33 Intake, IV Titration 403.102 244.979 29.722 Amount Norepinephrine 4 mg In 403.102 244.979 29.722 Sodium Chloride 0.9% 250 ml @ 0.03 MCG/KG/MIN 9. 453 mls/hr IV .Q24H YASEMIN Rx#:[id number] Output: Urine 890 585 205 Other: Voiding Method Indwelling Catheter Indwelling Catheter Indwelling Catheter # Bowel Movements 0 ABP, PAP, CO, CI - Last Documented Arterial Blood Pressure 112/52 - Exam Patient is alert and awake. Patient trying to speak despite having BiPAP on. As per examination from yesterday, he is speech is clear, with no aphasia or dysarthria. Patient can name very well. He can repeat. Patient has hypophonia. Patient's comprehension is intact, as he can point to the window. On cranial nerve examination, right pupil appears slightly bigger than the left. Both are reacting. Patient is hard of hearing. Face is symmetric. Visual rivas are full with no neglect. On muscle strength testing, his left deltoid is weak about 4-, likely from shoulder issue. Otherwise biceps, corn cooker are normal bilaterally. Lower extremities normal. No ataxia for [id number] testing. - Labs CBC & Chem 7: 12/24/23 04:54 12/24/23 04:54 Labs: Abnormal Lab Results - Last 24 Hours (Table) 12/22/23 12/23/23 12/23/23 Range/Units 19:58 03:50 05:02 RBC 2.62 L (4.30-5.90) m/uL Hgb 7.6 L D (13.0-17.5) gm/dL Hct 24.7 L (39.0-53.0) % MCHC 30.5 L (31.0-37.0) g/dL RDW 18.1 H (11.5-15.5) % Neutrophils # (1.3-7.7) k/uL Lymphocytes # 0.6 L (1.0-4.8) k/uL Potassium 3.0 L (3.5-5.1) mmol/L Chloride 109 H (98-107) mmol/L BUN 87 H (9-20) mg/dL Creatinine 2.63 H (0.66-1.25) mg/dL Glucose 141 H (74-99) mg/dL POC Glucose (mg/dL) 160 H (70-110) mg/dL Calcium 8.2 L (8.4-10.2) mg/dL 12/23/23 12/23/23 12/23/23 Range/Units 06:25 06:42 09:33 RBC 3.25 L (4.30-5.90) m/uL Hgb 9.6 L D (13.0-17.5) gm/dL Hct 30.6 L (39.0-53.0) % MCHC (31.0-37.0) g/dL RDW 18.2 H (11.5-15.5) % Neutrophils # 8.7 H (1.3-7.7) k/uL Lymphocytes # 0.8 L (1.0-4.8) k/uL Potassium (3.5-5.1) mmol/L Chloride (98-107) mmol/L BUN (9-20) mg/dL Creatinine (0.66-1.25) mg/dL Glucose (74-99) mg/dL POC Glucose (mg/dL) 165 H 169 H (70-110) mg/dL Calcium (8.4-10.2) mg/dL 12/23/23 12/23/23 12/23/23 Range/Units 11:33 16:58 17:00 RBC (4.30-5.90) m/uL Hgb (13.0-17.5) gm/dL Hct (39.0-53.0) % MCHC (31.0-37.0) g/dL RDW (11.5-15.5) % Neutrophils # (1.3-7.7) k/uL Lymphocytes # (1.0-4.8) k/uL Potassium (3.5-5.1) mmol/L Chloride 109 H (98-107) mmol/L BUN 90 H (9-20) mg/dL Creatinine 3.00 H (0.66-1.25) mg/dL Glucose 139 H (74-99) mg/dL POC Glucose (mg/dL) 185 H 150 H (70-110) mg/dL Calcium 8.2 L (8.4-10.2) mg/dL Assessment and Plan Assessment: This is an 83-year-old gentleman who presents because chest pain. During his hospital stay he was felt to have unstable angina/NSTEMI status post stenting of the left main and ramus. On 12/12/2019 4 at night she had 2 episodes of the cardiac arrest and in total it lasted for about 23 minutes. Status post cardiac arrest on 12/12/2023 and night in which she had 2 episodes in total lasted about 23 minutes. Patient was in asystole. His cardiac arrest is most likely related to his extensive coronary artery disease. Patient is doing very well. Mentation has remarkably improved. Unstable angina/NSTEMI status post stenting of left main and ramus Paroxysmal atrial fibrillation with left bundle branch block Severe ischemic cardiomyopathy with LVEF 35 to 40% Acute kidney injury, on chronic renal disease, now requiring short-term hem odialysis on 12/14/2023 and 12/15/2023. Acute hypoxic respiratory failure status post mechanical ventilation--extubated Transaminitis, resolved History of stroke Diabetes mellitus Hyperlipidemia Anemia Plan: Patient has been extubated, is fully awake and examination is nonfocal. Patient is following commands and examination is nonfocal. Cardiology, nephrology are consulted. Patient currently on Eliquis 2.5 mg twice daily for atrial fibrillation and Plavix 75 mg daily. Also on amiodarone. Will defer the rest of medical management to primary and other specialist. Prognosis appears good based upon clinical recovery (from neurology standpoint). Regarding prognosis medically, will defer to other specialties.
[2023-12-24 10:18] LABS: Glucose,Whole Blood 139 mg/dL (70-110)
--- NOTE | 2023-12-24 10:34 | P.PN ---
Subjective Progress Note Date: 12/24/23 83-year-old male patient who sustained a cardiac yesterday at 2033 and following that the patient was moved to the intensive care unit. The patient was found in asystole. He received CPR based on ACLS protocol. Initial downtime was around 25 to 30 minutes and the patient received 4 rounds of epinephrine and CPR. During the process the patient was also found to be in V-fib and was defibrillated. He was brought into the intensive care unit where he had another code at 2106 and the second code was brief. He was placed on pressors. He is already intubated on mechanical ventilator.. This morning, the patient is on propofol which is running at 50 mcg/kg/min. He is hypotensive and is on norepinephrine 0.18 micrograms per kilogram per minute. He was a difficult IV access. Unable to insert an arterial line. The triple-lumen catheter was inserted in the right femoral vein for hemodynamic support and pressors. At this point in time, he is on assist-control mode at a rate of 20, tidal volume of 400, FiO2 of 70% with a PEEP of 5. The chest x-ray is showing adequate positioning of the ET tube. Orotracheal tube was initially in the right mainstem that was pulled out. No change in the bilateral opacities seen. The patient also has a moderate-sized right-sided pleural effusion along with pulm vascular congestion. Blood work from today shows a WBC count 9.9 with a hemoglobin 10.9 and a platelet count of 147. pH is 7.43 with a pCO2 of 34 and a pO2 of 84. Sodium levels at 127 and potassium levels at 4.3 with a serum bicarb of 17 and the BUN is at 80 with a creatinine of 4.2 as the patient has an acute on top of chronic kidney injury. This could have been also related to contrast as the patient's creatinine was gradually going up following his cardiac procedures. Troponin currently is at 3.07 and it is uptrending again post cardiac arrest. Cardiology was informed of those changes. No plans for any further intervention. In terms of his cardiac history, the patient is followed by Dr. Nelson who presents with symptoms of chest discomfort. He has a known history of CAD underwent stenting of the LAD in September [address] Remy and subsequently was readmitted about a week after with acute thrombosis and underwent angioplasty and thrombectomy. He underwent repeat cardiac catheterization in August and was found to have totally occluded LAD with distal left main disease but was felt to be a poor candidate for any surgical intervention. He presents with symptoms of chest discomfort and dyspnea at rest yesterday He usually has exertional angina pectoris with dyspnea on exertion. His activity is limited. He has evidence of cardiomyopathy with segmental wall motion abnormality consistent with his initial presentation with myocardial infarction.Patient is status attempted catheterization with Dr. Nelson on 12/09/2023. Dr. Nelson had difficulty obtaining access and his cardiac catheterization was canceled. He underwent repeat cardiac catheterization with Dr. Remy with PCI of left main and ramus. Patient was hypotensive during the procedure. Patient was reevaluated today on 12/14/2023, patient remains in the ICU, intubated and mechanically ventilated. Patient was initially admitted on 12/05 with unstable angina, chest pain, severe coronary artery disease, and he was never felt to be a candidate for any surgical intervention. He had chronically occluded ostial LAD and ischemic cardiomyopathy. In addition he had chronic kidney disease and diabetes. As noted above the patient had cardiac arrest x 2 remains intubated and mechanically ventilated, he is on assist-control rate of 20 tidal volume 400 FiO2 50% PEEP of 5 ABG showed a pO2 of 88 pCO2 35 pH of 7.41. Patient may have developed anoxic brain injury, hence neurology will be consulted. Patient required a right brachial arterial line placement today, and this was done uneventfully. Patient will be started today on tube feeding. Looking back at the patient's history, patient clearly has a significant cardiac history, on 12/11, patient had V-fib cardiac arrest x 2 and he had CPR at 1 time it was 20 minutes the second time was 8 minutes of CPR. Obviously we are quite concerned about the possibility of anoxic brain injury. Chest x-ray is showing evidence of pulmonary edema, underlying pneumonia is not entirely ruled out but felt to be less likely patient is requiring norepinephrine at 0.16 mcg/kg/min also requiring propofol at 40 mcg/kg/min, FiO2 was decreased down to 45% today. Renal functioning is continuing to worse, patient is not making much urine, and spite of giving him Lasix and Bumex renal replacement therapy will be initiated today. Dialysis catheter was placed this morning. WBC count today is 10.3 hemoglobin is 9.9 basic metabolic profile is normal except for sodium of 129, BUN is up to 88 creatinine 5.81 blood sugar is 272 Patient was reevaluated today on 12/15/2023, remains in the ICU, intubated and mechanically ventilated he is on assist-control rate of 20 tidal volume 400 FiO2 35% and PEEP of 5 ABG showed a pO2 of 77 pCO2 35 pH of 7.45, patient is undergoing hemodialysis this morning. Remains on amiodarone drip, propofol at 25 mcg/kg/min is also on norepinephrine drip at 0.14 mcg/kg/min remains empirically on Zosyn. Chest x-ray is consistent with diffuse pleuroparenchymal changes/pulmonary edema picture, possible ARDS but I believe that pulmonary edema is really cardiogenic in nature. Sibling has history of ischemic cardiomyopathy. CBC showed WBC of 13.7 hemoglobin 9.8. Basic metabolic profile is normal sodium is 130, BUN is 77 creatinine 4.50, again the patient will have hemodialysis today neurologically, the patient is not responding to any stimuli, being followed by neurology, and I honestly believe the patient has most likely severe anoxic brain injury. Off sedation yesterday, patient was opening his eyes only but no other responses noted Evaluated today on 12/16/2023, remains in the ICU, intubated and mechanically ventilated, on assist-control rate of 20 tidal volume 400 FiO2 35% PEEP of 5 ABG showed a pO2 of 72 pCO2 34 pH of 7.46. Patient is opening eyes only but no responses whatsoever except opening eyes. And no purposeful movement is noted. He is off sedation for the last 24 hours, still requiring norepinephrine at 0.09 mcg/kg/min remains on Zosyn empirically patient has a decent urine output of 50 to 100 cc/h chest x-ray continues to show evidence of pulmonary edema or possible aspiration pneumonia. Patient is being treated for both. I suspect clinically that this is more of pulmonary edema secondary to severe LV dysfunction. At any rate we will continue to keep the patient off sedation as long as tolerated to fully assess mental status, presently although we could get is patient opening his eyes only. WBC count is 13.2 hemoglobin 9.8. Basic metabolic profile is normal BUN is 57 creatinine 2.93, patient has been on hemodialysis since 12/13, his last dialysis was yesterday. Urine output is picking up slightly. Patient was reevaluated today on 12/17/2023, remains intubated but not sedated, patient is off propofol, patient is awake, follows simple instructions like squeezing hands, wiggling toes, and closing and opening eyes. Seems to be appropriate, hence I plan to give the patient today a trial of pressure support and CPAP. His ABG showed a pO2 of 90 pCO2 37 pH of 7.43, patient has improvement in his urine output, his last hemodialysis was on 12/14, and his urine output seems to be stable, continues to receive tube feeds, still requiring norepinephrine at 0.1 mcg/kg/min remains on Zosyn and remains intermittently on diuretics. Chest x-ray is showing diffuse pleural-parenchymal changes consistent with pulmonary edema and/or pneumonia. Patient is receiving treatment for both the last chest x-ray is showing improvement sputum cultures have been nondiagnostic, blood cultures have been negative. WBC count today is 14.3 hemoglobin is 9.9, basic metabolic profile is normal BUN is 67 creatinine 2.83 steadily improving over the last few days. Reevaluate today on 12/18/2023, patient was extubated yesterday, he is presently on BiPAP 14/5/35%. Patient remains on norepinephrine at 0.04 mcg/kg/min, he is off fluids at KVO, his last hemodialysis was 12/14, urine output is reasonable, patient may not require any more hemodialysis. Patient is to have a swallow ev aluation today, remains on Zosyn for presumptive aspiration pneumonia. At any rate patient tolerated the extubation well over the last 24 hours, but he remains marginal and I would like to continue to monitor the patient in the ICU for at least the next 24 to 48 hours. Chest x-ray continues to show diffuse pleural-parenchymal changes, suspicious for pulmonary edema or aspiration pneumonia but improving, CBC is relatively normal basic metabolic profile is normal BUN is 67 creatinine down to 2.51 Reevaluate today on 12/19/23, patient continues to tolerate extubation for the last 2 days, however still on BiPAP 14/5/35%, still requiring norepinephrine at 0.04 mcg/kg/min. Chest x-ray is showing worsening right-sided pleural effusion and right airspace disease, I am recommending more diuretics on this patient, patient remains on antibiotics empirically. The findings on the chest x-ray is a bit concerning, clinically the patient is doing well, and no major setback clinically compared to yesterday WBC count is 13.3 hemoglobin is 9.8 basic metabolic profile is normal BUN is 174 creatinine 2.34 blood cultures and sputum cultures have been negative/nondiagnostic. Patient was today on 12/20/2023, patient was extubated now 3 days ago, continues to tolerate the extubation well. However his overall clinical status remains marginal at best. Patient is not quite ready to be transferred out of the ICU mostly because he is still requiring norepinephrine for low blood pressure, and he is now on Lasix drip for what seems to be a picture of congestive heart failure secondary to ischemic cardiomyopathy and LV dysfunction. His ejection fraction is no more than 25%. Yesterday I recommended Lasix because he was developing significant right-sided pleural effusion and that seems to be impr griffin today. Patient is now on 3 L nasal cannula, intermittently on BiPAP 14/5/35%. Patient had a negative balance of 2580 over the last 24 hours since he was placed on Lasix drip. Today I am recommending dobutamine at 2.5 mcg/kg/min, on a trial basis considering that the patient has severe LV dys function, and may taper the norepinephrine down if he does better with dobutamine. Diet will be advanced, he is now on pured diet. Still concerned about potential aspiration. And this was recommended by speech therapy. Antibiotics salguero patient remains on Zosyn empirically. Chest x-ray continues to show small right-sided pleural effusion and bibasilar infiltrates/atelectasis/pneumonia suspect the findings are also findings of congestive heart failure. Systolic in nature WBC count today is 9.3 hemoglobin 9.7. Basic metabolic profile is normal renal profile is slightly worse today BUN of 73 creatinine 2.49, nonetheless the patient is not oliguric. And he is responding well to Lasix drip The patient is seen today December 21, 2023 in follow-up in the intensive care unit. He is currently resting in bed. Awake and alert in no acute distress. He was extubated back on December 17, 2023. He is currently maintaining good O2 saturations in the 90s on 3 L/min per nasal cannula. Chest x-ray shows similar cardiomegaly with bilateral pleural effusion and associated atelectasis. Cultures revealed no growth. Sputum culture revealed no growth. White count 8.5. Hemoglobin 9.2. Platelets 257. Sodium 142. Potassium 4.0. Bicarb 19. BUN 72. Creatinine 2.49. Glucose 197. He is continued on Lasix drip at 10 mg/h. Dobutamine at 2.5 mcg/kg/min. Norepinephrine at 6 mcg/min. He is an ticoagulated with Eliquis. He is currently in a -1 L balance. The patient is seen today December 22, 2023 in follow-up in the intensive care unit. He is currently awake and alert in no acute distress. Maintaining O2 saturations in the 90s on 3 L/min per nasal cannula. He did utilize BiPAP last night 14/5 and 35% FiO2. He is still requiring norepinephrine at 0.11 mcg/kg/min. Lasix at 10 mg/h. Dobutamine at 2.5 g/kg/min.. Platelets 334. Sodium 143. Potassium 3.8. Bicarb 23. BUN 81. Creatinine 2.47. Glucose 180. He remains in a positive balance today of 850 MLS. He is anticoagulated with Eliquis. Continue on DuoNeb ventilations, Pulmicort and Perforomist inhalations. Remains on Zaroxolyn. The patient is seen today December 23, 2023 in follow-up in the intensive care unit. He is awake and alert no acute distress. Sitting up in bed. He is maintaining good O2 saturations in the 90s on 3 L/min per nasal cannula. He did utilize BiPAP last night 14/5 and 30% FiO2. He is on normal saline at KVO. Still requiring a small amount of norepinephrine at 0.04 mcg/kg/min or 3.4 mcg/min. He is off the Lasix drip. He is off the dobutamine drip. He is on Lasix at 60 mg IV every 8 hours. Currently in a -500 mL balance. White count 10.0. Hemoglobin 9.6. Platelets 258. Sodium 143. Potassium 3.0. Bicarb 25. BUN 87. Creatinine 2.63. Glucose 141. Cultures revealed no growth. Sputum culture revealed no growth. He remains on bronchodilators. Anticoagulated with Eliquis. X-ray reveals similar findings with cardiomegaly and pulmonary vascular congestion and bilateral pleural effusions. The patient is seen today December 24, 2023 in follow-up in the intensive care unit. He is currently sitting up in bed. Awake and alert in no acute distress. He is currently on 3 L/min per nasal cannula. He did utilize BiPAP throughout the night 14/5 and 30% FiO2. He remains on dobutamine at 2.5 mcg/kg/min. Plan is for hemodialysis catheter placement today. He also needs a swallow evaluation. Chest x-ray shows similar findings with cardiomegaly and some pulmonary vascular congestion and bilateral pleural effusions. Blood cultures revealed no growth. Sputum culture revealed no growth. White count 8.3. Hemoglobin 9.3. Platelets 287. Sodium 143. Potassium 3.2. Bicarb 24. BUN 93. Creatinine 2.97. Glucose 99. He remains on bronchodilators. Remains on Lasix 80 mg every 8 hours. Currently in a -800 mL balance. Objective - Vital Signs Vital signs: Vital Signs Temp 97.6 F 12/24/23 08:00 Pulse 74 12/24/23 09:36 Resp 21 12/24/23 09:00 BP 118/66 12/24/23 08:00 Pulse Ox 93 L 12/24/23 09:06 FiO2 30 12/24/23 09:06 Intake & Output 12/23/23 12/24/23 12/24/23 18:59 06:59 18:59 Intake Total 270.722 36 36 Output Total 230 878 275 Balance 40.722 -842 -239 Weight 86.3 kg Intake: IV 241 36 36 Invasive Line 4 30 Normal Saline 5mL/hr 5 Potassium Chloride 20 meq 200 In Water For Injection 1 100ml.bag @ 50 mls/hr IVPB Q2H YASEMIN Rx#: [id number] Pressure bag 36 36 6 Intake, IV Titration 29.722 Amount Norepinephrine 4 mg In 29.722 Sodium Chloride 0.9% 250 ml @ 0.03 MCG/KG/MIN 9. 453 mls/hr IV .Q24H YASEMIN Rx#:[id number] Output: Urine 230 878 275 Other: Voiding Method Indwelling Catheter Indwelling Catheter Indwelling Catheter # Bowel Movements 1 1 1 ABP, PAP, CO, CI - Last Documented Arterial Blood Pressure 109/46 - Exam GENERAL EXAM: Awake, alert 83-year-old male, on 3 L nasal cannula and 80 with BiPAP, in no apparent distress. HEAD: Normocephalic. EYES: Normal reaction of pupils, equal size. NOSE: Clear with pink turbinates. THROAT: No erythema or exudates. NECK: No masses, no JVD. CHEST: No chest wall deformity. LUNGS: Equal air entry with crackles in the bilateral bases. CVS: S1 and S2 normal with no audible murmur, regular rhythm. ABDOMEN: No hepatosplenomegaly, normal bowel sounds, no guarding or rigidity. SPINE: No scoliosis or deformity SKIN: No rashes CENTRAL NERVOUS SYSTEM: No focal deficits, tone is normal in all 4 extremities. EXTREMITIES: There is 1+ peripheral edema. No clubbing, no cyanosis. Peripheral pulses are intact. - Labs CBC & Chem 7: 12/24/23 04:54 12/24/23 04:54 Labs: Abnormal Lab Results - Last 24 Hours (Table) 12/23/23 12/23/23 12/23/23 Range/Units 11:33 16:58 17:00 RBC (4.30-5.90) m/uL Hgb (13.0-17.5) gm/dL Hct (39.0-53.0) % MCHC (31.0-37.0) g/dL RDW (11.5-15.5) % Lymphocytes # (1.0-4.8) k/uL Potassium (3.5-5.1) mmol/L Chloride 109 H (98-107) mmol/L BUN 90 H (9-20) mg/dL Creatinine 3.00 H (0.66-1.25) mg/dL Glucose 139 H (74-99) mg/dL POC Glucose (mg/dL) 185 H 150 H (70-110) mg/dL Calcium 8.2 L (8.4-10.2) mg/dL 12/23/23 12/24/23 12/24/23 Range/Units 20:14 04:54 04:54 RBC 3.24 L (4.30-5.90) m/uL Hgb 9.3 L (13.0-17.5) gm/dL Hct 30.8 L (39.0-53.0) % MCHC 30.3 L (31.0-37.0) g/dL RDW 18.5 H (11.5-15.5) % Lymphocytes # 0.5 L (1.0-4.8) k/uL Potassium 3.2 L (3.5-5.1) mmol/L Chloride 109 H (98-107) mmol/L BUN 93 H (9-20) mg/dL Creatinine 2.97 H (0.66-1.25) mg/dL Glucose (74-99) mg/dL POC Glucose (mg/dL) 119 H (70-110) mg/dL Calcium (8.4-10.2) mg/dL 12/24/23 Range/Units 10:16 RBC (4.30-5.90) m/uL Hgb (13.0-17.5) gm/dL Hct (39.0-53.0) % MCHC (31.0-37.0) g/dL RDW (11.5-15.5) % Lymphocytes # (1.0-4.8) k/uL Potassium (3.5-5.1) mmol/L Chloride (98-107) mmol/L BUN (9-20) mg/dL Creatinine (0.66-1.25) mg/dL Glucose (74-99) mg/dL POC Glucose (mg/dL) 139 H (70-110) mg/dL Calcium (8.4-10.2) mg/dL Assessment and Plan Assessment: Cardiac arrest x 2 Severe coronary artery disease and acute non-ST elevation myocardial infarction Acute hypoxic respiratory failure secondary to above Cardiogenic shock Acute systolic congestive heart failure Anoxic encephalopathy, recovered Acute kidney injury, received hemodialysis x 2 last 1 on 12/15/2023. Only 400 m ls removed each time. Plan is for permacath placement today History of underlying coronary artery disease with previous stent of LAD September 22, 2022, complicated by acute thrombosis requiring angioplasty and thrombectomy repeat cardiac catheterization 09/12 showed totally occluded LAD with distal left main disease felt to be poor candidate for surgical intervention Severe ischemic cardiomyopathy and LV dysfunction with ejection fraction of 35 to 40% History of CVA History of medical debility and multiple comorbidities Type 2 diabetes Dyslipidemia Plan: The patient was seen and evaluated Chest x-ray, labs and medications reviewed Stable and on 3 L nasal cannula Remains on dobutamine drip To receive a permacath for hemodialysis today To have a swallow evaluation today CODE STATUS to be addressed We will continue to follow I have personally seen and examined the patient, performed the documentation and the assessment and plan as written. Number of minutes spent on the visit: 10.
[2023-12-24 11:19] LABS: Glucose,Whole Blood 172 mg/dL (70-110)
--- NOTE | 2023-12-24 11:21 | P.PN ---
Subjective Progress Note Date: 12/24/23 Pts CXR today looks floridly volume overloaded. Plan is for iHD today per nephrology. Gen: In NAD, non-toxic HEENT: normocephalic, atraumatic, hearing acuity is intant, mucous membranes moist CVS: perfusing all extremities well, no pitting edema, Respiratory: symmetric chest expansion, no accessory muscle use, GI: soft, NTTP, ND, : no suprapubic tenderness, no CVA tenderness MSK/Derm: no rashes, cyanosis Neuro: CN II-XII intact, no motor weakness, Psych: cooperative, euthymic mood, judgment and insight is intact Hospital course: 83-year-old male with PMH of CAD, history of CVA, diabetes mellitus, chronic kidney disease, hypertension, BPH, hypothyroidism presents the ED for chest pain . In the ED, he underwent extensive evaluation. BP 98/61, HR 84, RR 20, T 102.6F, 100% on 1 LNC. CBC, coag panel and CMP was done significant for lymphocyte count of 0.5, sodium 1:30, bicarb 18, BUN 34, creatinine 1.8, glucose 184, calcium 8.2, alk phos 167. Magnesium 2.2. Troponin 0.028. Flu, RSV, COVID-19 negative. EKG showed sinus rhythm with left bundle branch block. Chest x-ray showed small right pleural effusion and pulmonary vascular congestion. Patient is admitted for chest pain, rule out acute coronary syndrome and cardiology consultation. Workup from previous admission was reviewed. Cardiac cath 09/04/23 showed 70-80% distal left main, 100% ostial LAD with collateral, 80-90% ostial PDA, 80% proximal OM1. He has been evaluated by CT surgery in the past deemed to be poor surgical candidate for revascularization. Echocardiogram 09/01/23 showed EF 35-40% with anteroseptal, anterior wall hypokinesia, mild aortic stenosis. His troponins uptrended and he was started on a heparin drip. Cardiology consulted, he underwent cardiac catheterization on 12/08 but was cancelled due to poor vascular access. He underwent repeat cardiac cath on 12/09 and PCI of left main and ramus. His renal function continued to worsen after cardiac cath. LISSETH LORENZO was called on 12/11, noted to be in asystole and V-Fib requiring defibrillation, epinephrine, calcium chloride and sodium bicarb. ROSC was achieved and he was transferred to the ICU. He developed asystole again in the ICU requiring epinephrine and sodium bicarb. ROSC was once again achieved. Nephrology consulted, HD catheter placed and HD started on 12/13 and 12/14. Neurology consulted for anoxic encephalopathy, Brain CT (negative for acute pathology) and EEG (severe encephaopathy) ordered. He remained intubated and maintained on Levophed and Zosyn. He was extubated on 12/16 and transitioned to BiPAP and nasal cannula. Difficulties titrating off Levophed. Dobutamine drip added 12/19. Lasix drip started on 12/19 along with Metolazone. Completed course of Zosyn on 12/19. Lasix drip transitioned to IVP 12/21. 12/23 Patient was seen and examined. Reports some nausea but no vomiting. Dobumatine drip restarted overnight. Lasix drip switched to 60 mg IV TID. -800 cc fluid balance over the past 24H. CXR personally interpreted, ongoing vascular congestion with right pleural effusion and small left pleural effusion, however, right side has more consolidated appearance. Assessment/plan: NSTEMI Cardiogenic Shock Cardiac Arrest, Asystole, then VFib Paroxysmal Atrial Fibrillation -Lipitor 80 mg PO QHS. -Amiodarone 200mg daily, metoprolol 12.5mg BID -On midodrine 10mg AC-TID -Apixaban 2.5mg BID. Plavix 75 mg PO QD -Ranolazine 500mg BID ZOEY on CKD: Systolic CHF exacerbation with right pleural effusion and pulmonary vascular congestion: Hypervolemic Hyponatremia, resolved -80IV lasix TID, metolazone 5mg BID -Nephrology to follow; rec'd dialysis 12/13, 12/14 -Renal US negative. Sepsis (resolved) secondary to Aspiration Pneumonia -s/p course of zosyn -ID on board -video swallow today; consideration of enteral feeding via PO or NGT pending results Diabetes mellitus with hyperglycemia: -levemir 20U daily. 6U AC-TID. ISS. -Accuchecks ACHS. Hypoglycemic precautions. Chronic conditions: history of CVA, hypertension, BPH, hypothyroidism CODE STATUS: FULL CODE. DVT Prophylaxis: on eliquis GI Prophylaxis: Protonix Designated medical POA if patient is not able to make medical decisions for themselves: Daughter Objective - Vital Signs Vital signs: Vital Signs Temp 97.6 F 12/24/23 08:00 Pulse 74 12/24/23 09:36 Resp 21 12/24/23 09:00 BP 118/66 12/24/23 08:00 Pulse Ox 93 L 12/24/23 09:06 FiO2 30 12/24/23 09:06 Intake & Output 12/23/23 12/24/23 12/24/23 18:59 06:59 18:59 Intake Total 270.722 36 36 Output Total 230 878 275 Balance 40.722 -842 -239 Weight 86.3 kg Intake: IV 241 36 36 Invasive Line 4 30 Normal Saline 5mL/hr 5 Potassium Chloride 20 meq 200 In Water For Injection 1 100ml.bag @ 50 mls/hr IVPB Q2H YASEMIN Rx#: [id number] Pressure bag 36 36 6 Intake, IV Titration 29.722 Amount Norepinephrine 4 mg In 29.722 Sodium Chloride 0.9% 250 ml @ 0.03 MCG/KG/MIN 9. 453 mls/hr IV .Q24H YASEMIN Rx#:[id number] Output: Urine 230 878 275 Other: Voiding Method Indwelling Catheter Indwelling Catheter Indwelling Catheter # Bowel Movements 1 1 1 ABP, PAP, CO, CI - Last Documented Arterial Blood Pressure 109/46 - Labs CBC & Chem 7: 12/24/23 04:54 12/24/23 04:54 Labs: Abnormal Lab Results - Last 24 Hours (Table) 12/23/23 12/23/23 12/23/23 Range/Units 11:33 16:58 17:00 RBC (4.30-5.90) m/uL Hgb (13.0-17.5) gm/dL Hct (39.0-53.0) % MCHC (31.0-37.0) g/dL RDW (11.5-15.5) % Lymphocytes # (1.0-4.8) k/uL Potassium (3.5-5.1) mmol/L Chloride 109 H (98-107) mmol/L BUN 90 H (9-20) mg/dL Creatinine 3.00 H (0.66-1.25) mg/dL Glucose 139 H (74-99) mg/dL POC Glucose (mg/dL) 185 H 150 H (70-110) mg/dL Calcium 8.2 L (8.4-10.2) mg/dL 12/23/23 12/24/23 12/24/23 Range/Units 20:14 04:54 04:54 RBC 3.24 L (4.30-5.90) m/uL Hgb 9.3 L (13.0-17.5) gm/dL Hct 30.8 L (39.0-53.0) % MCHC 30.3 L (31.0-37.0) g/dL RDW 18.5 H (11.5-15.5) % Lymphocytes # 0.5 L (1.0-4.8) k/uL Potassium 3.2 L (3.5-5.1) mmol/L Chloride 109 H (98-107) mmol/L BUN 93 H (9-20) mg/dL Creatinine 2.97 H (0.66-1.25) mg/dL Glucose (74-99) mg/dL POC Glucose (mg/dL) 119 H (70-110) mg/dL Calcium (8.4-10.2) mg/dL 12/24/23 Range/Units 10:16 RBC (4.30-5.90) m/uL Hgb (13.0-17.5) gm/dL Hct (39.0-53.0) % MCHC (31.0-37.0) g/dL RDW (11.5-15.5) % Lymphocytes # (1.0-4.8) k/uL Potassium (3.5-5.1) mmol/L Chloride (98-107) mmol/L BUN (9-20) mg/dL Creatinine (0.66-1.25) mg/dL Glucose (74-99) mg/dL POC Glucose (mg/dL) 139 H (70-110) mg/dL Calcium (8.4-10.2) mg/dL
--- NOTE | 2023-12-24 11:24 | FL ---
Modified barium swallow. HISTORY: Dysphagia. Modified barium swallow was performed with the department of speech pathology. The patient was prese nted with various consistencies of barium. There is no evidence for aspiration. Mild transient penetration noted with thin liquid barium. Full r eport is to follow from the department of speech pathology. Impression: No evidence for aspiration as noted above.
--- NOTE | 2023-12-24 11:56 | P.PN ---
Subjective patient is seen for follow-up for acute kidney injury and chronic kidney disease. Patient has received 2 treatments of hemodialysis on 12/14/2023 and 12/15/2023. hemodialysis on hold since 12/15/2023 urine output had improved and hemodialysis was on hold however once the dobutamine drip was discontinued and Lasix was switched to IV push Lasix abdullahi pop's urine output has dropped again to about 20 mL an hour. restarted dobutamine yesterday and urine output has picked up. Serum creatinine at 2.9. Potassium 3.2 Objective - Vital Signs Vital signs: Vital Signs Temp 97.6 F 12/24/23 08:00 Pulse 71 12/24/23 11:00 Resp 15 12/24/23 11:00 BP 97/54 12/24/23 11:00 Pulse Ox 94 L 12/24/23 11:00 FiO2 30 12/24/23 09:06 Intake & Output 12/23/23 12/24/23 12/24/23 18:59 06:59 18:59 Intake Total 270.722 36 42 Output Total 230 878 400 Balance 40.722 -842 -358 Weight 86.3 kg Intake: IV 241 36 42 Invasive Line 4 30 Normal Saline 5mL/hr 5 Potassium Chloride 20 meq 200 In Water For Injection 1 100ml.bag @ 50 mls/hr IVPB Q2H YASEMIN Rx#: [id number] Pressure bag 36 36 12 Intake, IV Titration 29.722 Amount Norepinephrine 4 mg In 29.722 Sodium Chloride 0.9% 250 ml @ 0.03 MCG/KG/MIN 9. 453 mls/hr IV .Q24H YASEMIN Rx#:[id number] Output: Urine 230 878 400 Other: Voiding Method Indwelling Catheter Indwelling Catheter Indwelling Catheter # Bowel Movements 1 1 1 ABP, PAP, CO, CI - Last Documented Arterial Blood Pressure 109/46 - Exam patient is awake comfortable, no acute distress Alert oriented 3 Examination of the heart S1 and S2 Examination the lungs bilateral breath sounds are heard, decreased breath sounds at bases Abdomen is soft obese nontender Examination lower extremities shows edema 1+ bilaterally, scrotal edema noted [employer] exam grossly intact - Labs CBC & Chem 7: 12/24/23 04:54 12/24/23 04:54 Labs: Abnormal Lab Results - Last 24 Hours (Table) 12/23/23 12/23/2312/22/24 Range/Units 16:58 17:00 20:14 RBC (4.30-5.90) m/uL Hgb (13.0-17.5) gm/dL Hct (39.0-53.0) % MCHC (31.0-37.0) g/dL RDW (11.5-15.5) % Lymphocytes # (1.0-4.8) k/uL Potassium (3.5-5.1) mmol/L Chloride 109 H (98-107) mmol/L BUN 90 H (9-20) mg/dL Creatinine 3.00 H (0.66-1.25) mg/dL Glucose 139 H (74-99) mg/dL POC Glucose (mg/dL) 150 H 119 H (70-110) mg/dL Calcium 8.2 L (8.4-10.2) mg/dL 12/24/23 12/24/23 12/24/23 Range/Units 04:54 04:54 10:16 RBC 3.24 L (4.30-5.90) m/uL Hgb 9.3 L (13.0-17.5) gm/dL Hct 30.8 L (39.0-53.0) % MCHC 30.3 L (31.0-37.0) g/dL RDW 18.5 H (11.5-15.5) % Lymphocytes # 0.5 L (1.0-4.8) k/uL Potassium 3.2 L (3.5-5.1) mmol/L Chloride 109 H (98-107) mmol/L BUN 93 H (9-20) mg/dL Creatinine 2.97 H (0.66-1.25) mg/dL Glucose (74-99) mg/dL POC Glucose (mg/dL) 139 H (70-110) mg/dL Calcium (8.4-10.2) mg/dL 12/24/23 Range/Units 11:18 RBC (4.30-5.90) m/uL Hgb (13.0-17.5) gm/dL Hct (39.0-53.0) % MCHC (31.0-37.0) g/dL RDW (11.5-15.5) % Lymphocytes # (1.0-4.8) k/uL Potassium (3.5-5.1) mmol/L Chloride (98-107) mmol/L BUN (9-20) mg/dL Creatinine (0.66-1.25) mg/dL Glucose (74-99) mg/dL POC Glucose (mg/dL) 172 H (70-110) mg/dL Calcium (8.4-10.2) mg/dL Assessment and Plan Assessment: 1. Acute kidney injury secondary to hemodynamic ATN, cardiorenal syndrome and cardiac arrest. Also component of contrast-induced acute kidney injury. Creatinine up to 5.8 dated December 14, 2023. Was oliguric, now nonoliguric. UA benign. No hydronephrosis noted on CAT scan. Urine output has improved since dobutamine was restarted. Patient will need to resume renal replacement therapy to aid with volume overload. Temporary dialysis catheter will be switched to IJ permacath and we will restart hemodialysis in the next few days. 2. 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 3. Coronary artery disease status postcardiac catheterization with stent placement on December 10, 2023. Not a candidate for CABG. 4. Metabolic acidosis secondary to acute kidney injury. Better. 5. Hyponatremia. Component of poor solute intake. Hypervolemic. Better. 6. Diabetes mellitus. 7. Possible pneumonia on antibiotics. ID following. 8. Volume overload. Improved with ultrafiltration and better urine output. status post dobutamine and Lasix drip 9. Status postcardiac arrest - V-fib and PEA. 10. Cardiomyopathy with EF of 35-40% Plan: continue with current dose of IV Lasix continue Zaroxolyn Replace potassium aggressively Try to discontinue dobutamine in 24 hours and if urine output drops again patient will be started on hemodialysis. Temporary femoral catheter will be removed and patient will have an IJ permacath placed.
--- NOTE | 2023-12-24 14:32 | PN ---
PROGRESS NOTE SUBJECTIVE: Gregg is doing somewhat better this morning. The dobutamine infusion that I started yesterday has increased the urine output. Remains hypotensive and is requiring Levophed and the BUN is 93, creatinine is 2.9, and the patient may end up requiring dialysis. OBJECTIVE: GENERAL: Comfortable at rest. VITAL SIGNS: Heart rate is 70 beats per minute, blood pressure is 97/50, respiratory rate is 18. CHEST: Reveals diminished air entry at the bases. HEART: Reveals first and second heart sounds. Systolic murmur at the apex. ABDOMEN: Soft. EXTREMITIES: Did not reveal any edema. Peripheral pulses are palpable. ASSESSMENT: 1. CAD, status post angioplasty with stent placement of left main and circumflex coronary artery. 2. Ischemic cardiomyopathy with severe LV dysfunction. 3. Chronic systolic heart failure. 4. Chronic renal insufficiency. PLAN: I will continue the dobutamine infusion, amiodarone, Eliquis, Lipitor, Plavix, and Lopressor along with Levophed that he is on. MMODL / IJN: [id number] /
--- NOTE | 2023-12-24 14:36 | P.PN ---
Subjective Progress Note Date: 12/24/23 Principal diagnosis: Reason for follow-up is fever possible pneumonia Patient is a 83-year-old male past medical history significant for diabetes mellitus hypertension [place] CVA TIA presenting to the hospital with chest pain shortness of breath also noticed to be febrile prompting this consultation. Patient did have worsening of his respiratory status and also cardiac arrest with the patient has been intubated and transferred to the ICU patient subsequently has been extubated On today's evaluation that is 12/24/2023,the patient denies any fever or any chills, patient is breathing comfortably on 3 L nasal cannula oxygen, the patient denies chest pain and no significant cough, patient denies abdominal pain, no nausea vomiting or diarrhea. Patient white count is 8.3, creatinine is 2.97 culture has been negative Objective - Vital Signs Vital signs: Vital Signs Temp 97.4 F L 12/24/23 12:00 Pulse 76 12/24/23 14:00 Resp 21 12/24/23 14:00 BP 106/56 12/24/23 14:00 Pulse Ox 97 12/24/23 14:00 FiO2 30 12/24/23 09:06 Intake & Output 12/23/23 12/24/23 12/24/23 18:59 06:59 18:59 Intake Total 270.722 36 246.676 Output Total 230 878 540 Balance 40.722 -842 -293.324 Weight 86.3 kg Intake: IV 241 36 91 Invasive Line 4 60 Invasive Line 7 10 Normal Saline 5mL/hr 5 Potassium Chloride 20 meq 200 In Water For Injection 1 100ml.bag @ 50 mls/hr IVPB Q2H YASEMIN Rx#: [id number] Pressure bag 36 36 21 Intake, IV Titration 29.722 155.676 Amount DOBUTamine DRIP 500 mg In 155.676 Dextrose/Water 1 250ml. bag @ 2.5 MCG/KG/MIN 6. 473 mls/hr IV .Q24H YASEMIN Rx#:[id number] Norepinephrine 4 mg In 29.722 Sodium Chloride 0.9% 250 ml @ 0.03 MCG/KG/MIN 9. 453 mls/hr IV .Q24H YASEMIN Rx#:[id number] Output: Urine 230 878 540 Other: Voiding Method Indwelling Catheter Indwelling Catheter Indwelling Catheter # Bowel Movements 1 1 1 ABP, PAP, CO, CI - Last Documented Arterial Blood Pressure 114/55 - Exam GENERAL DESCRIPTION: An elderly male lying in bed in no distress RESPIRATORY SYSTEM: Unlabored breathing , decreased breath sounds at bases HEART: S1 S2 regular rate and rhythm , ABDOMEN: Soft , no tenderness EXTREMITIES: No edema feet - Labs CBC & Chem 7: 12/24/23 04:54 12/24/23 04:54 Labs: Abnormal Lab Results - Last 24 Hours (Table) 12/23/23 12/23/23 12/23/23 Range/Units 16:58 17:00 20:14 RBC (4.30-5.90) m/uL Hgb (13.0-17.5) gm/dL Hct (39.0-53.0) % MCHC (31.0-37.0) g/dL RDW (11.5-15.5) % Lymphocytes # (1.0-4.8) k/uL Potassium (3.5-5.1) mmol/L Chloride 109 H (98-107) mmol/L BUN 90 H (9-20) mg/dL Creatinine 3.00 H (0.66-1.25) mg/dL Glucose 139 H (74-99) mg/dL POC Glucose (mg/dL) 150 H 119 H (70-110) mg/dL Calcium 8.2 L (8.4-10.2) mg/dL 12/24/23 12/24/23 12/24/23 Range/Units 04:54 04:54 10:16 RBC 3.24 L (4.30-5.90) m/uL Hgb 9.3 L (13.0-17.5) gm/dL Hct 30.8 L (39.0-53.0) % MCHC 30.3 L (31.0-37.0) g/dL RDW 18.5 H (11.5-15.5) % Lymphocytes # 0.5 L (1.0-4.8) k/uL Potassium 3.2 L (3.5-5.1) mmol/L Chloride 109 H (98-107) mmol/L BUN 93 H (9-20) mg/dL Creatinine 2.97 H (0.66-1.25) mg/dL Glucose (74-99) mg/dL POC Glucose (mg/dL) 139 H (70-110) mg/dL Calcium (8.4-10.2) mg/dL 12/24/23 Range/Units 11:18 RBC (4.30-5.90) m/uL Hgb (13.0-17.5) gm/dL Hct (39.0-53.0) % MCHC (31.0-37.0) g/dL RDW (11.5-15.5) % Lymphocytes # (1.0-4.8) k/uL Potassium (3.5-5.1) mmol/L Chloride (98-107) mmol/L BUN (9-20) mg/dL Creatinine (0.66-1.25) mg/dL Glucose (74-99) mg/dL POC Glucose (mg/dL) 172 H (70-110) mg/dL Calcium (8.4-10.2) mg/dL Assessment and Plan (1) Fever and chills Current Visit: Yes Status: Acute Code(s): R50.9 - FEVER, UNSPECIFIED SNOMED Code(s): 697458083 (2) Sepsis Current Visit: Yes Status: Acute Code(s): A41.9 - SEPSIS, UNSPECIFIED ORGANISM SNOMED Code(s): 87594008 (3) Aspiration pneumonia Current Visit: Yes Status: Acute Code(s): J69.0 - PNEUMONITIS DUE TO INHALATION OF FOOD AND VOMIT SNOMED Code(s): 198256584 Plan: 1patient presented hospital with chest pain noticed to have a fever on admission and another fever this morning did have predominantly respiratory symptoms with a question of possible pneumonia versus intra-abdominal pathology, but we did have a negative UA no evidence of any cellulitis or joint swelling 2-patient did have cardiac arrest and admission to the ICU and for possible aspiration, blood and sputum culture so far negative, the patient subsequently has been extubated 3-patient is afebrile, the patient however count has been normal patient seems to be doing well off antibiotic therapy we will monitor closely off antibiotics at this point Dictation was produced using [employer]ation software. please excuse any grammatical, word or spelling errors. Time with Patient: Less than 30
[2023-12-24] MEDS: fentaNYL (PF) 50 MCG/ML 2 ML AMP IVP ONE (15:20)
[2023-12-24] MEDS: MIDAZOLAM 2 MG/2 ML VIAL IVP ONE (15:20)
[2023-12-24] MEDS: LIDOCAINE 1% INJ 10MG/ML (20 ML MDV) SQ ONE (15:22)
[2023-12-24 16:53] LABS: Glucose,Whole Blood 129 mg/dL (70-110)
[2023-12-24] MEDS: POTASSIUM CHLORIDE ER 20 MEQ TAB.ER PO STA (18:42)
--- NOTE | 2023-12-24 20:11 | OP ---
OPERATIVE REPORT DATE OF SERVICE : 12/24/2023 PREOPERATIVE DIAGNOSIS: Acute chronic renal failure. POSTOPERATIVE DIAGNOSIS: Acute chronic renal failure. PROCEDURES: 1. Ultrasound-guided 23 cm dialysis catheter placed, right jugular approach. 2. Removal of the temporary dialysis catheter, right femoral approach. DESCRIPTION OF PROCEDURE: Right neck, chest, and groin were prepped and drapes applied in a sterile manner. 1% lidocaine infiltrated in the neck and chest area. Ultrasound-guided micropuncture introduced into the right jugular vein. Micropuncture guidewire was passed. After that, we passed a 4-[place] sheath. Then, we passed a guidewire which was part of the inferior vena cava. Then, tunnel was created. Through the tunnel, we brought 23 cm dialysis catheter and then dilator was advanced. Then, sheath was advanced on top of the guidewire. Through the sheath, we placed a dialysis catheter. Tip of the catheter in superior vena cavoatrial junction, flushed with heparin saline and hep- locked, secured with 3-0 nylon and Vicryl. Dressing applied. The patient tolerated the procedure well. Then right groin stitches were removed. Right femoral vein was removed. Pressure was held. The patient tolerated the procedure well and transferred to the room in satisfactory condition. MMODL / IJN: [id number] / [id number]
[2023-12-24 21:39] LABS: Glucose,Whole Blood 118 mg/dL (70-110)
[2023-12-25 05:56] LABS: Anisocytosis Slight; Basophils % (A) 0 %; Eosinophils # (A) 0.1 k/uL (0-0.7); Eosinophils % (A) 1 %; HGB 9.1 gm/dL (13.0-17.5); Hypochromasia Moderate; Lymphocytes # (A) 0.4 k/uL (1.0-4.8); Lymphocytes % (A) 7 %; MCH 28.9 pg (25.0-35.0); MCHC 30.2 g/dL (31.0-37.0); MCV 95.7 fL (80.0-100.0); Macrocytosis Slight; Mean Platelet Volume 8.7; Monocytes # (A) 0.4 k/uL (0-1.0); Monocytes % (A) 6 %; Neutrophils # (A) 5.3 k/uL (1.3-7.7); Neutrophils % (A) 85 %; Platelet Count 235 k/uL (150-450); RBC 3.14 m/uL (4.30-5.90); RDW 19.2 % (11.5-15.5); WBC 6.2 k/uL (3.8-10.6)
[2023-12-25 06:07] LABS: African American GFR (CKD) 21 (>60 ml/min/1.73 sqM); Anion Gap 10 mmol/L; Blood Urea Nitrogen 95 mg/dL (9-20); Calcium 7.9 mg/dL (8.4-10.2); Carbon Dioxide 24 mmol/L (22-30); Chloride 106 mmol/L (98-107); Glucose 103 mg/dL (74-99); Magnesium 2.2 mg/dL (1.6-2.3); Non-African American GFR(CKD) 19 (>60 ml/min/1.73 sqM); Potassium 3.5 mmol/L (3.5-5.1); Sodium 140 mmol/L (137-145)
[2023-12-25 06:27] LABS: Glucose,Whole Blood 106 mg/dL (70-110)
--- NOTE | 2023-12-25 10:07 | P.PN ---
Subjective Progress Note Date: 12/24/23 12/24/2023: Patient was seen for a follow-up. Patient has BiPAP on. Patient is very alert and awake. He is very interactive. 12/23/2023: Patient was seen for a follow-up. Patient is on BiPAP. He wants the mask off. He denies any headache by nodding appropriately. He is off pressors. No new concerns. 12/22/2023: Patient initially seen by Dr. Deng Alexis. Please refer to his note for details. 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 EEG was negative for seizure. Patient was seen for a follow-up. Patient denies headache. Patient speaks full sentences like "what kind of doctor are you". Patient is very hard of hearing. Some of the workup during his hospital visit consisted of. Sodium is 129-->130 --> 143 Creatinine is 5.81, now 2.63 Initial hepatic panel was elevated, but now normal.. CT the head is reported as no acute intracranial process. Routine EEG is abnormal. The background slowing is suggestive of severe encephalopathy. There is no focal slowing, epileptiform discharges or seizure on the EEG. 2D echo from 08/30/2023 revealed left ventricular EF 35 to 40%. Mid to distal anteroseptal, anterior wall hypokinesia. Anterior apical hypokinesia. Mildly increased left ventricular wall thickness. Aortic valve sclerosis. Mild aortic stenosis. Mild left atrial dilation. Objective - Vital Signs Vital signs: Vital Signs Temp 98.2 F 12/24/23 16:00 Pulse 70 12/24/23 18:00 Resp 15 12/24/23 18:00 BP 97/52 12/24/23 18:00 Pulse Ox 94 L 12/24/23 18:00 FiO2 30 12/24/23 18:00 Intake & Output 12/23/23 12/24/23 12/24/23 18:59 06:59 18:59 Intake Total 270.722 36 498.676 Output Total 230 878 715 Balance 40.722 -842 -216.324 Weight 86.3 kg Intake: IV 241 36 143 Invasive Line 4 90 Invasive Line 7 20 Normal Saline 5mL/hr 5 Potassium Chloride 20 meq 200 In Water For Injection 1 100ml.bag @ 50 mls/hr IVPB Q2H [facility] Rx#: [id number] Pressure bag 36 36 33 Intake, IV Titration 29.722 155.676 Amount DOBUTamine DRIP 500 mg In 155.676 Dextrose/Water 1 250ml. bag @ 2.5 MCG/KG/MIN 6. 473 mls/hr IV .Q24H [facility] Rx#:[id number] Norepinephrine 4 mg In 29.722 Sodium Chloride 0.9% 250 ml @ 0.03 MCG/KG/MIN 9. 453 mls/hr IV .Q24H [facility] Rx#:[id number] Oral 200 Output: Urine 230 878 715 Other: Voiding Method Indwelling Catheter Indwelling Catheter Indwelling Catheter # Bowel Movements 1 1 0 ABP, PAP, CO, CI - Last Documented Arterial Blood Pressure 115/54 - Exam Patient is alert and awake. Patient trying to speak despite having BiPAP on. Otherwise his speech is clear, with no aphasia or dysarthria. Patient's comprehension is perfectly intact. On cranial nerve examination, right pupil appears slightly bigger than the left. Both are reacting. Patient is hard of hearing. Face is symmetric. Visual rivas are full with no neglect. On muscle strength testing, (right/left) deltoid 4-/4-, biceps 5/5, triceps 5/5, flyer repairer 5/5, hip flexion 4/4, ankle dorsiflexion 5/5. Sensory to touch is equal. No ataxia for [id number] testing. - Labs CBC & Chem 7: 12/25/23 05:32 12/25/23 05:32 Labs: Abnormal Lab Results - Last 24 Hours (Table) 12/23/23 12/24/23 12/24/23 Range/Units 20:14 04:54 04:54 RBC 3.24 L (4.30-5.90) m/uL Hgb 9.3 L (13.0-17.5) gm/dL Hct 30.8 L (39.0-53.0) % MCHC 30.3 L (31.0-37.0) g/dL RDW 18.5 H (11.5-15.5) % Lymphocytes # 0.5 L (1.0-4.8) k/uL Potassium 3.2 L (3.5-5.1) mmol/L Chloride 109 H (98-107) mmol/L BUN 93 H (9-20) mg/dL Creatinine 2.97 H (0.66-1.25) mg/dL POC Glucose (mg/dL) 119 H (70-110) mg/dL 12/24/23 12/24/23 12/24/23 Range/Units 10:16 11:18 16:50 RBC (4.30-5.90) m/uL Hgb (13.0-17.5) gm/dL Hct (39.0-53.0) % MCHC (31.0-37.0) g/dL RDW (11.5-15.5) % Lymphocytes # (1.0-4.8) k/uL Potassium (3.5-5.1) mmol/L Chloride (98-107) mmol/L BUN (9-20) mg/dL Creatinine (0.66-1.25) mg/dL POC Glucose (mg/dL) 139 H 172 H 129 H (70-110) mg/dL Assessment and Plan Assessment: This is an 83-year-old gentleman who presents because chest pain. During his hospital stay he was felt to have unstable angina/NSTEMI status post stenting of the left main and ramus. On 12/12/2019 4 at night she had 2 episodes of the cardiac arrest and in total it lasted for about 23 minutes. Status post cardiac arrest on 12/12/2023 and night in which she had 2 episodes in total lasted about 23 minutes. Patient was in asystole. His cardiac arrest is most likely related to his extensive coronary artery disease. Patient is doing very well. Mentation has remarkably improved. Unstable angina/NSTEMI status post stenting of left main and ramus Paroxysmal atrial fibrillation with left bundle branch block Severe ischemic cardiomyopathy with LVEF 35 to 40% Acute kidney injury, on chronic renal disease, now requiring short-term he modialysis on 12/14/2023 and 12/15/2023. Acute hypoxic respiratory failure status post mechanical ventilation--extubated Transaminitis, resolved History of stroke Diabetes mellitus, with last A1c 8.4 on 08/31/2023 Hyperlipidemia Anemia Plan: Patient has been extubated, is fully awake and examination is nonfocal. Patient is following commands and examination is nonfocal. Cardiology, nephrology are consulted. ID also on board. Patient off antibiotics at this time. Patient currently on Eliquis 2.5 mg twice daily for atrial fibrillation and Plavix 75 mg daily. Also on amiodarone. Will defer the rest of medical management to primary and other specialist. Prognosis appears good based upon clinical recovery (from neurology standpoint). Regarding prognosis medically, will defer to other specialties. Neurologically, no other workup indicated.
--- NOTE | 2023-12-25 10:13 | XR ---
EXAMINATION TYPE: XR KUB portable DATE OF EXAM: 12/25/2023 9:58 AM CLINICAL INDICATION:Male, 83 years old with history of abd pain nausea; [facility] COMPARISON: 12/25/2023 TECHNIQUE: One radiographic view of the abdomen was obtained. FINDINGS: Oral contrast extends to the transverse colon The bowel gas pattern is nonspecific without dilated loops of small or large bowel. There is no evidence for organomegaly or pneumoperitoneum. Th e osseous structures are intact. No abnormal calcifications are present. Fecal material and gas are demonstrated throughout the colon and rectum. IMPRESSION: 1. Oral contrast extends to the transverse colon. 2. Nonspecific bowel gas pattern without radiographic evidence for acute process.
[2023-12-25] MEDS: POTASSIUM BICARBONATE/CIT AC 20 MEQ TABLET.EFF PO ONE (10:15)
--- NOTE | 2023-12-25 10:15 | P.PN ---
Subjective patient is seen for follow-up for acute kidney injury and chronic kidney disease. Patient has received 2 treatments of hemodialysis on 12/14/2023 and 12/15/2023. hemodialysis on hold since 12/15/2023 urine output had improved and hemodialysis was on hold however once the dobutamine drip was discontinued and Lasix was switched to IV push Lasix abdullahi pop's urine output had dropped again to about 20 mL an hour. restarted dobutamine on 12/23/2023 and urine output has picked up. Serum creatinine staying around 3 mg/dL. Status post removal of temporary femoral dialysis catheter and placement of right IJ permacath as patient will likely need to restart hemodialysis. Objective - Vital Signs Vital signs: Vital Signs Temp 97.8 F 12/25/23 04:00 Pulse 71 12/25/23 10:00 Resp 22 12/25/23 10:00 BP 111/58 12/25/23 10:00 Pulse Ox 93 L 12/25/23 10:00 FiO2 35 12/25/23 08:04 Intake & Output 12/24/23 12/25/23 12/25/23 18:59 06:59 18:59 Intake Total 498.676 586 380 Output Total 715 560 190 Balance -216.324 26 190 Weight 87.3 kg Intake: IV 143 36 10 Invasive Line 4 90 Invasive Line 7 20 30 10 Pressure bag 33 6 Intake, IV Titration 155.676 Amount DOBUTamine DRIP 500 mg In 155.676 Dextrose/Water 1 250ml. bag @ 2.5 MCG/KG/MIN 6. 473 mls/hr IV .Q24H [facility] Rx#:[id number] Oral 200 550 370 Output: Urine 715 560 190 Other: Voiding Method Indwelling Catheter Indwelling Catheter Indwelling Catheter # Bowel Movements 0 0 0 ABP, PAP, CO, CI - Last Documented Arterial Blood Pressure 113/45 - Exam patient is awake comfortable, no acute distress Alert oriented 3 Examination of the heart S1 and S2 Examination the lungs bilateral breath sounds are heard, decreased breath sounds at bases Abdomen is soft obese nontender Examination lower extremities shows edema 1+ bilaterally, scrotal edema noted TAX EXPERT exam grossly intact - Labs CBC & Chem 7: 12/25/23 05:32 12/25/23 05:32 Labs: Abnormal Lab Results - Last 24 Hours (Table) 0412/24/23 12/24/23 Range/Units 10:16 11:18 16:50 RBC (4.30-5.90) m/uL Hgb (13.0-17.5) gm/dL Hct (39.0-53.0) % MCHC (31.0-37.0) g/dL RDW (11.5-15.5) % Lymphocytes # (1.0-4.8) k/uL BUN (9-20) mg/dL Creatinine (0.66-1.25) mg/dL Glucose (74-99) mg/dL POC Glucose (mg/dL) 139 H 172 H 129 H (70-110) mg/dL Calcium (8.4-10.2) mg/dL 12/24/23 12/25/23 12/25/23 Range/Units 21:38 05:32 05:32 RBC 3.14 L (4.30-5.90) m/uL Hgb 9.1 L (13.0-17.5) gm/dL Hct 30.0 L (39.0-53.0) % MCHC 30.2 L (31.0-37.0) g/dL RDW 19.2 H (11.5-15.5) % Lymphocytes # 0.4 L (1.0-4.8) k/uL BUN 95 H (9-20) mg/dL Creatinine 3.02 H (0.66-1.25) mg/dL Glucose 103 H (74-99) mg/dL POC Glucose (mg/dL) 118 H (70-110) mg/dL Calcium 7.9 L (8.4-10.2) mg/dL Assessment and Plan Assessment: 1. Acute kidney injury secondary to hemodynamic ATN, cardiorenal syndrome and cardiac arrest. Also component of contrast-induced acute kidney injury. Creatinine up to 5.8 dated December 14, 2023. Was oliguric, now nonoliguric. UA benign. No hydronephrosis noted on CAT scan. Urine output has improved since dobutamine was restarted. Patient will need to resume renal replacement therapy to aid with volume overload. temporary dialysis catheter has been discontinued and right IJ permacath placed yesterday. Dobutamine will likely be discontinued today and we will monitor urine output and volume status closely as patient will likely need to restart hemodialysis. 2. 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 3. Coronary artery disease status postcardiac catheterization with stent placement on December 10, 2023. Not a candidate for CABG. 4. Metabolic acidosis secondary to acute kidney injury. Better. 5. Hyponatremia. Component of poor solute intake. Hypervolemic. Better. 6. Diabetes mellitus. 7. Possible pneumonia on antibiotics. ID following. 8. Volume overload. Improved with ultrafiltration and better urine output. status post dobutamine and Lasix drip 9. Status postcardiac arrest - V-fib and PEA. 10. Cardiomyopathy with EF of 35-40% Plan: continue with current dose of IV Lasix continue Zaroxolyn Replace potassium aggressively Try to discontinue dobutamine in 24 hours and if urine output drops again patient will be started on hemodialysis. Patient is aware.
--- NOTE | 2023-12-25 10:24 | IR ---
EXAMINATION TYPE: IR cvc insert central tunneled Intraoperative/procedural fluoroscopic services were provided. CLINICAL INDICATION:Male, 83 years old with history of DIALYSIS; , [facility] Total fluoroscopy time is 1.3 min. DAP: 925.14 Gycm2 Please see the operative/procedural note for further details.
--- NOTE | 2023-12-25 10:27 | P.PN ---
Subjective Progress Note Date: 12/25/23 Pt rec'd permacath yesterday. Discussed with nursing - nutrition has remained poor. Discussed with nephrology, will likely need dialysis if UOP drops while off of dobutamine again. Gen: In NAD, non-toxic HEENT: normocephalic, atraumatic, hearing acuity is intant, mucous membranes moist CVS: perfusing all extremities well, no pitting edema, Respiratory: symmetric chest expansion, no accessory muscle use, GI: soft, NTTP, ND, : no suprapubic tenderness, no CVA tenderness MSK/Derm: no rashes, cyanosis Neuro: CN II-XII intact, no motor weakness, Psych: cooperative, euthymic mood, judgment and insight is intact Hospital course: 83-year-old male with PMH of CAD, history of CVA, diabetes mellitus, chronic kidney disease, hypertension, BPH, hypothyroidism presents the ED for chest pain. In the ED, he underwent extensive evaluation. BP 98/61, HR 84, RR 20, T 102.6F, 100% on 1 LNC. CBC, coag panel and CMP was done significant for lymphocyte count of 0.5, sodium 1:30, bicarb 18, BUN 34, creatinine 1.8, glucose 184, calcium 8.2, alk phos 167. Magnesium 2.2. Troponin 0.028. Flu, RSV, COVID-19 negative. EKG showed sinus rhythm with left bundle branch block. Chest x-ray showed small right pleural effusion and pulmonary vascular congestion. Patient is admitted for chest pain, rule out acute coronary syndrome and cardiology consultation. Workup from previous admission was reviewed. Cardiac cath 09/04/23 showed 70-80% distal left main, 100% ostial LAD with collateral, 80-90% ostial PDA, 80% proximal OM1. He has been evaluated by CT surgery in the past deemed to be poor surgical candidate for revascularization. Echocardiogram 09/01/23 showed EF 35-40% with anteroseptal, anterior wall hypokinesia, mild aortic stenosis. His troponins uptrended and he was started on a heparin drip. Cardiology consulted, he underwent cardiac catheterization on 12/08 but was cancelled due to poor vascular access. He underwent repeat cardiac cath on 12/09 and PCI of left main and ramus. His renal function continued to worsen after cardiac cath. LISSETH LORENZO was called on 12/11, noted to be in asystole and V-Fib requiring defibrillation, epinephrine, calcium chloride and sodium bicarb. ROSC was achieved and he was transferred to the ICU. He developed asystole again in the ICU requiring epinephrine and sodium bicarb. ROSC was once again achieved. Nephrology consulted, HD catheter placed and HD started on 12/13 and 12/14. Neurology consulted for anoxic encephalopathy, Brain CT (negative for acute pathology) and EEG (severe encephaopathy) ordered. He remained intubated and maintained on Levophed and Zosyn. He was extubated on 12/16 and transitioned to BiPAP and nasal cannula. Difficulties titrating off Levophed. Dobutamine drip added 12/19. Lasix drip started on 12/19 along with Metolazone. Completed course of Zosyn on 12/19. Lasix drip transitioned to IVP 12/21. 12/23 Patient was seen and examined. Reports some nausea but no vomiting. Dobumatine drip restarted overnight. Lasix drip switched to 60 mg IV TID. -800 cc fluid balance over the past 24H. CXR personally interpreted, ongoing vascular congestion with right pleural effusion and small left pleural effusion, however, right side has more consolidated appearance. 12/24 passed video swallow. Rec'd permacath on 12/23, central line pulled. Assessment/plan: NSTEMI Cardiogenic Shock Cardiac Arrest, Asystole, then VFib Paroxysmal Atrial Fibrillation -Lipitor 80 mg PO QHS. -Amiodarone 200mg daily, metoprolol 12.5mg BID -On midodrine 10mg AC-TID -Apixaban 2.5mg BID. Plavix 75 mg PO QD -Ranolazine 500mg BID Moderate Protein Calorie Malnutrition -nutrition consult -consideration of dobhoff with enteral feeds -abdominal XR -BMP, Mg, Phos tomorrow AM ZOEY on CKD: Systolic CHF exacerbation with right pleural effusion and pulmonary vascular congestion: Hypervolemic Hyponatremia, resolved -80IV lasix TID, metolazone 5mg BID -Nephrology to follow; rec'd dialysis 12/13, 12/14 -Renal US negative. Sepsis (resolved) secondary to Aspiration Pneumonia -s/p course of zosyn -ID on board Diabetes mellitus with hyperglycemia: -levemir 20U daily. 6U AC-TID. ISS. -Accuchecks ACHS. Hypoglycemic precautions. Chronic conditions: history of CVA, hypertension, BPH, hypothyroidism CODE STATUS: FULL CODE. DVT Prophylaxis: on eliquis GI Prophylaxis: Protonix Designated medical POA if patient is not able to make medical decisions for themselves: Daughter Objective - Vital Signs Vital signs: Vital Signs Temp 97.8 F 12/25/23 04:00 Pulse 71 12/25/23 10:00 Resp 22 12/25/23 10:00 BP 111/58 12/25/23 10:00 Pulse Ox 93 L 12/25/23 10:00 FiO2 35 12/25/23 08:04 Intake & Output 12/24/23 12/25/23 12/25/23 18:59 06:59 18:59 Intake Total 498.676 586 380 Output Total 715 560 190 Balance -216.324 26 190 Weight 87.3 kg Intake: IV 143 36 10 Invasive Line 4 90 Invasive Line 7 20 30 10 Pressure bag 33 6 Intake, IV Titration 155.676 Amount DOBUTamine DRIP 500 mg In 155.676 Dextrose/Water 1 250ml. bag @ 2.5 MCG/KG/MIN 6. 473 mls/hr IV .Q24H [facility] Rx#:[id number] Oral 200 550 370 Output: Urine 715 560 190 Other: Voiding Method Indwelling Catheter Indwelling Catheter Indwelling Catheter # Bowel Movements 0 0 0 ABP, PAP, CO, CI - Last Documented Arterial Blood Pressure 113/45 - Labs CBC & Chem 7: 12/25/23 05:32 12/25/23 05:32 Labs: Abnormal Lab Results - Last 24 Hours (Table) 12/24/23 12/24/23 12/24/23 Range/Units 11:18 16:50 21:38 RBC (4.30-5.90) m/uL Hgb (13.0-17.5) gm/dL Hct (39.0-53.0) % MCHC (31.0-37.0) g/dL RDW (11.5-15.5) % Lymphocytes # (1.0-4.8) k/uL BUN (9-20) mg/dL Creatinine (0.66-1.25) mg/dL Glucose (74-99) mg/dL POC Glucose (mg/dL) 172 H 129 H 118 H (70-110) mg/dL Calcium (8.4-10.2) mg/dL 12/25/23 12/25/23 Range/Units 05:32 05:32 RBC 3.14 L (4.30-5.90) m/uL Hgb 9.1 L (13.0-17.5) gm/dL Hct 30.0 L (39.0-53.0) % MCHC 30.2 L (31.0-37.0) g/dL RDW 19.2 H (11.5-15.5) % Lymphocytes # 0.4 L (1.0-4.8) k/uL BUN 95 H (9-20) mg/dL Creatinine 3.02 H (0.66-1.25) mg/dL Glucose 103 H (74-99) mg/dL POC Glucose (mg/dL) (70-110) mg/dL Calcium 7.9 L (8.4-10.2) mg/dL
--- NOTE | 2023-12-25 10:31 | P.PN ---
Subjective Progress Note Date: 12/25/23 83-year-old male patient who sustained a cardiac yesterday at 2033 and following that the patient was moved to the intensive care unit. The patient was found in asystole. He received CPR based on ACLS protocol. Initial downtime was around 25 to 30 minutes and the patient received 4 rounds of epinephrine and CPR. During the process the patient was also found to be in V-fib and was defibrillated. He was brought into the intensive care unit where he had another code at 2106 and the second code was brief. He was placed on pressors. He is already intubated on mechanical ventilator.. This morning, the patient is on propofol which is running at 50 mcg/kg/min. He is hypotensive and is on norepinephrine 0.18 micrograms per kilogram per minute. He was a difficult IV access. Unable to insert an arterial line. The triple-lumen catheter was inserted in the right femoral vein for hemodynamic support and pressors. At this point in time, he is on assist-control mode at a rate of 20, tidal volume of 400, FiO2 of 70% with a PEEP of 5. The chest x-ray is showing adequate positioning of the ET tube. Orotracheal tube was initially in the right mainstem that was pulled out. No change in the bilateral opacities seen. The patient also has a moderate-sized right-sided pleural effusion along with pulm vascular congestion. Blood work from today shows a WBC count 9.9 with a hemoglobin 10.9 and a platelet count of 147. pH is 7.43 with a pCO2 of 34 and a pO2 of 84. Sodium levels at 127 and potassium levels at 4.3 with a serum bicarb of 17 and the BUN is at 80 with a creatinine of 4.2 as the patient has an acute on top of chronic kidney injury. This could have been also related to contrast as the patient's creatinine was gradually going up following his cardiac procedures. Troponin currently is at 3.07 and it is uptrending again post cardiac arrest. Cardiology was informed of those changes. No plans for any further intervention. In terms of his cardiac history, the patient is followed by Dr. Nelson who presents with symptoms of chest discomfort. He has a known history of CAD underwent stenting of the LAD in September [address] Remy and subsequently was readmitted about a week after with acute thrombosis and underwent angioplasty and thrombectomy. He underwent repeat cardiac catheterization in August and was found to have totally occluded LAD with distal left main disease but was felt to be a poor candidate for any surgical intervention. He presents with symptoms of chest discomfort and dyspnea at rest yesterday He usually has exertional angina pectoris with dyspnea on exertion. His activity is limited. He has evidence of cardiomyopathy with segmental wall motion abnormality consistent with his initial presentation with myocardial infarction.Patient is status attempted catheterization with Dr. Nelson on 12/09/2023. Dr. Nelson had difficulty obtaining access and his cardiac catheterization was canceled. He underwent repeat cardiac catheterization with Dr. Remy with PCI of left main and ramus. Patient was hypotensive during the procedure. Patient was reevaluated today on 12/14/2023, patient remains in the ICU, intubated and mechanically ventilated. Patient was initially admitted on 12/05 with unstable angina, chest pain, severe coronary artery disease, and he was never felt to be a candidate for any surgical intervention. He had chronically occluded ostial LAD and ischemic cardiomyopathy. In addition he had chronic kidney disease and diabetes. As noted above the patient had cardiac arrest x 2 remains intubated and mechanically ventilated, he is on assist-control rate of 20 tidal volume 400 FiO2 50% PEEP of 5 ABG showed a pO2 of 88 pCO2 35 pH of 7.41. Patient may have developed anoxic brain injury, hence neurology will be consulted. Patient required a right brachial arterial line placement today, and this was done uneventfully. Patient will be started today on tube feeding. Looking back at the patient's history, patient clearly has a significant cardiac history, on 12/11, patient had V-fib cardiac arrest x 2 and he had CPR at 1 time it was 20 minutes the second time was 8 minutes of CPR. Obviously we are quite concerned about the possibility of anoxic brain injury. Chest x-ray is showing evidence of pulmonary edema, underlying pneumonia is not entirely ruled out but felt to be less likely patient is requiring norepinephrine at 0.16 mcg/kg/min also requiring propofol at 40 mcg/kg/min, FiO2 was decreased down to 45% today. Renal functioning is continuing to worse, patient is not making much urine, and spite of giving him Lasix and Bumex renal replacement therapy will be initiated today. Dialysis catheter was placed this morning. WBC count today is 10.3 hemoglobin is 9.9 basic metabolic profile is normal except for sodium of 129, BUN is up to 88 creatinine 5.81 blood sugar is 272 Patient was reevaluated today on 12/15/2023, remains in the ICU, intubated and mechanically ventilated he is on assist-control rate of 20 tidal volume 400 FiO2 35% and PEEP of 5 ABG showed a pO2 of 77 pCO2 35 pH of 7.45, patient is undergoing hemodialysis this morning. Remains on amiodarone drip, propofol at 25 mcg/kg/min is also on norepinephrine drip at 0.14 mcg/kg/min remains empirically on Zosyn. Chest x-ray is consistent with diffuse pleuroparenchymal changes/pulmonary edema picture, possible ARDS but I believe that pulmonary edema is really cardiogenic in nature. Sibling has history of ischemic cardiomyopathy. CBC showed WBC of 13.7 hemoglobin 9.8. Basic metabolic profile is normal sodium is 130, BUN is 77 creatinine 4.50, again the patient will have hemodialysis today neurologically, the patient is not responding to any stimuli, being followed by neurology, and I honestly believe the patient has most likely severe anoxic brain injury. Off sedation yesterday, patient was opening his eyes only but no other responses noted Evaluated today on 12/16/2023, remains in the ICU, intubated and mechanically ventilated, on assist-control rate of 20 tidal volume 400 FiO2 35% PEEP of 5 ABG showed a pO2 of 72 pCO2 34 pH of 7.46. Patient is opening eyes only but no responses whatsoever except opening eyes. And no purposeful movement is noted. He is off sedation for the last 24 hours, still requiring norepinephrine at 0.09 mcg/kg/min remains on Zosyn empirically patient has a decent urine output of 50 to 100 cc/h chest x-ray continues to show evidence of pulmonary edema or possible aspiration pneumonia. Patient is being treated for both. I suspect clinically that this is more of pulmonary edema secondary to severe LV dysfunction. At any rate we will continue to keep the patient off sedation as long as tolerated to fully assess mental status, presently although we could get is patient opening his eyes only. WBC count is 13.2 hemoglobin 9.8. Basic metabolic profile is normal BUN is 57 creatinine 2.93, patient has been on hemodialysis since 12/13, his last dialysis was yesterday. Urine output is picking up slightly. Patient was reevaluated today on 12/17/2023, remains intubated but not sedated, patient is off propofol, patient is awake, follows simple instructions like squeezing hands, wiggling toes, and closing and opening eyes. Seems to be appropriate, hence I plan to give the patient today a trial of pressure support and CPAP. His ABG showed a pO2 of 90 pCO2 37 pH of 7.43, patient has improvement in his urine output, his last hemodialysis was on 12/14, and his urine output seems to be stable, continues to receive tube feeds, still requiring norepinephrine at 0.1 mcg/kg/min remains on Zosyn and remains intermittently on diuretics. Chest x-ray is showing diffuse pleural-parenchymal changes consistent with pulmonary edema and/or pneumonia. Patient is receiving treatment for both the last chest x-ray is showing improvement sputum cultures have been nondiagnostic, blood cultures have been negative. WBC count today is 14.3 hemoglobin is 9.9, basic metabolic profile is normal BUN is 67 creatinine 2.83 steadily improving over the last few days. Reevaluate today on 12/18/2023, patient was extubated yesterday, he is presently on BiPAP 14/5/35%. Patient remains on norepinephrine at 0.04 mcg/kg/min, he is off fluids at KVO, his last hemodialysis was 12/14, urine output is reasonable, patient may not require any more hemodialysis. Patient is to have a swallow ev aluation today, remains on Zosyn for presumptive aspiration pneumonia. At any rate patient tolerated the extubation well over the last 24 hours, but he remains marginal and I would like to continue to monitor the patient in the ICU for at least the next 24 to 48 hours. Chest x-ray continues to show diffuse pleural-parenchymal changes, suspicious for pulmonary edema or aspiration pneumonia but improving, CBC is relatively normal basic metabolic profile is normal BUN is 67 creatinine down to 2.51 Reevaluate today on 12/19/23, patient continues to tolerate extubation for the last 2 days, however still on BiPAP 14/5/35%, still requiring norepinephrine at 0.04 mcg/kg/min. Chest x-ray is showing worsening right-sided pleural effusion and right airspace disease, I am recommending more diuretics on this patient, patient remains on antibiotics empirically. The findings on the chest x-ray is a bit concerning, clinically the patient is doing well, and no major setback clinically compared to yesterday WBC count is 13.3 hemoglobin is 9.8 basic metabolic profile is normal BUN is 174 creatinine 2.34 blood cultures and sputum cultures have been negative/nondiagnostic. Patient was today on 12/20/2023, patient was extubated now 3 days ago, continues to tolerate the extubation well. However his overall clinical status remains marginal at best. Patient is not quite ready to be transferred out of the ICU mostly because he is still requiring norepinephrine for low blood pressure, and he is now on Lasix drip for what seems to be a picture of congestive heart failure secondary to ischemic cardiomyopathy and LV dysfunction. His ejection fraction is no more than 25%. Yesterday I recommended Lasix because he was developing significant right-sided pleural effusion and that seems to be impr griffin today. Patient is now on 3 L nasal cannula, intermittently on BiPAP 14/5/35%. Patient had a negative balance of 2580 over the last 24 hours since he was placed on Lasix drip. Today I am recommending dobutamine at 2.5 mcg/kg/min, on a trial basis considering that the patient has severe LV dys function, and may taper the norepinephrine down if he does better with dobutamine. Diet will be advanced, he is now on pured diet. Still concerned about potential aspiration. And this was recommended by speech therapy. Antibiotics salguero patient remains on Zosyn empirically. Chest x-ray continues to show small right-sided pleural effusion and bibasilar infiltrates/atelectasis/pneumonia suspect the findings are also findings of congestive heart failure. Systolic in nature WBC count today is 9.3 hemoglobin 9.7. Basic metabolic profile is normal renal profile is slightly worse today BUN of 73 creatinine 2.49, nonetheless the patient is not oliguric. And he is responding well to Lasix drip The patient is seen today December 21, 2023 in follow-up in the intensive care unit. He is currently resting in bed. Awake and alert in no acute distress. He was extubated back on December 17, 2023. He is currently maintaining good O2 saturations in the 90s on 3 L/min per nasal cannula. Chest x-ray shows similar cardiomegaly with bilateral pleural effusion and associated atelectasis. Cultures revealed no growth. Sputum culture revealed no growth. White count 8.5. Hemoglobin 9.2. Platelets 257. Sodium 142. Potassium 4.0. Bicarb 19. BUN 72. Creatinine 2.49. Glucose 197. He is continued on Lasix drip at 10 mg/h. Dobutamine at 2.5 mcg/kg/min. Norepinephrine at 6 mcg/min. He is an ticoagulated with Eliquis. He is currently in a -1 L balance. The patient is seen today December 22, 2023 in follow-up in the intensive care unit. He is currently awake and alert in no acute distress. Maintaining O2 saturations in the 90s on 3 L/min per nasal cannula. He did utilize BiPAP last night 14/5 and 35% FiO2. He is still requiring norepinephrine at 0.11 mcg/kg/min. Lasix at 10 mg/h. Dobutamine at 2.5 g/kg/min.. Platelets 334. Sodium 143. Potassium 3.8. Bicarb 23. BUN 81. Creatinine 2.47. Glucose 180. He remains in a positive balance today of 850 MLS. He is anticoagulated with Eliquis. Continue on DuoNeb ventilations, Pulmicort and Perforomist inhalations. Remains on Zaroxolyn. The patient is seen today December 23, 2023 in follow-up in the intensive care unit. He is awake and alert no acute distress. Sitting up in bed. He is maintaining good O2 saturations in the 90s on 3 L/min per nasal cannula. He did utilize BiPAP last night 14/5 and 30% FiO2. He is on normal saline at KVO. Still requiring a small amount of norepinephrine at 0.04 mcg/kg/min or 3.4 mcg/min. He is off the Lasix drip. He is off the dobutamine drip. He is on Lasix at 60 mg IV every 8 hours. Currently in a -500 mL balance. White count 10.0. Hemoglobin 9.6. Platelets 258. Sodium 143. Potassium 3.0. Bicarb 25. BUN 87. Creatinine 2.63. Glucose 141. Cultures revealed no growth. Sputum culture revealed no growth. He remains on bronchodilators. Anticoagulated with Eliquis. X-ray reveals similar findings with cardiomegaly and pulmonary vascular congestion and bilateral pleural effusions. The patient is seen today December 24, 2023 in follow-up in the intensive care unit. He is currently sitting up in bed. Awake and alert in no acute distress. He is currently on 3 L/min per nasal cannula. He did utilize BiPAP throughout the night 14/5 and 30% FiO2. He remains on dobutamine at 2.5 mcg/kg/min. Plan is for hemodialysis catheter placement today. He also needs a swallow evaluation. Chest x-ray shows similar findings with cardiomegaly and some pulmonary vascular congestion and bilateral pleural effusions. Blood cultures revealed no growth. Sputum culture revealed no growth. White count 8.3. Hemoglobin 9.3. Platelets 287. Sodium 143. Potassium 3.2. Bicarb 24. BUN 93. Creatinine 2.97. Glucose 99. He remains on bronchodilators. Remains on Lasix 80 mg every 8 hours. Currently in a -800 mL balance. The patient is seen today December 25, 2023 in follow-up in the intensive care unit. He is awake and alert in no acute distress. Sitting up in bed. Maintaining O2 saturations in the 90s on 3 L/min per nasal cannula. He did utilize BiPAP 14/5 and 35% throughout the night. He did have a hemodialysis catheter placed yesterday. No hemodialysis initiated thus far. He remains on dobutamine drip at 2.5 mcg/kg/min. KUB revealed no acute process. White count 6.2. Hemoglobin 9.1. Platelets 235. Sodium 140. Potassium 3.5. Bicarb 24. BUN 95. Creatinine 3.02. Glucose 106. He is continued on Lasix 80 mg IV every 8 hours. Continued on bronchodilators. Objective - Vital Signs Vital signs: Vital Signs Temp 97.8 F 12/25/23 04:00 Pulse 71 12/25/23 10:00 Resp 22 12/25/23 10:00 BP 111/58 12/25/23 10:00 Pulse Ox 93 L 12/25/23 10:00 FiO2 35 12/25/23 08:04 Intake & Output 12/24/23 12/25/23 12/25/23 18:59 06:59 18:59 Intake Total 498.676 586 380 Output Total 715 560 190 Balance -216.324 26 190 Weight 87.3 kg Intake: IV 143 36 10 Invasive Line 4 90 Invasive Line 7 20 30 10 Pressure bag 33 6 Intake, IV Titration 155.676 Amount DOBUTamine DRIP 500 mg In 155.676 Dextrose/Water 1 250ml. bag @ 2.5 MCG/KG/MIN 6. 473 mls/hr IV .Q24H [facility] Rx#:[id number] Oral 200 550 370 Output: Urine 715 560 190 Other: Voiding Method Indwelling Catheter Indwelling Catheter Indwelling Catheter # Bowel Movements 0 0 0 ABP, PAP, CO, CI - Last Documented Arterial Blood Pressure 113/45 - Exam GENERAL EXAM: Awake, alert 83-year-old male, resting comfortably in bed, on 3 L nasal cannula, in no apparent distress. HEAD: Normocephalic. EYES: Normal reaction of pupils, equal size. NOSE: Clear with pink turbinates. THROAT: No erythema or exudates. NECK: No masses, no JVD. CHEST: No chest wall deformity. LUNGS: Equal air entry with crackles in the bilateral bases. CVS: S1 and S2 normal with no audible murmur, regular rhythm. ABDOMEN: No hepatosplenomegaly, normal bowel sounds, no guarding or rigidity. SPINE: No scoliosis or deformity SKIN: No rashes CENTRAL NERVOUS SYSTEM: No focal deficits, tone is normal in all 4 extremities. EXTREMITIES: There is 1+ peripheral edema. No clubbing, no cyanosis. Peripheral pulses are intact. - Labs CBC & Chem 7: 12/25/23 05:32 12/25/23 05:32 Labs: Abnormal Lab Results - Last 24 Hours (Table) 12/24/23 12/24/23 12/24/23 Range/Units 10:16 11:18 16:50 RBC (4.30-5.90) m/uL Hgb (13.0-17.5) gm/dL Hct (39.0-53.0) % MCHC (31.0-37.0) g/dL RDW (11.5-15.5) % Lymphocytes # (1.0-4.8) k/uL BUN (9-20) mg/dL Creatinine (0.66-1.25) mg/dL Glucose (74-99) mg/dL POC Glucose (mg/dL) 139 H 172 H 129 H (70-110) mg/dL Calcium (8.4-10.2) mg/dL 12/24/23 12/25/23 12/25/23 Range/Units 21:38 05:32 05:32 RBC 3.14 L (4.30-5.90) m/uL Hgb 9.1 L (13.0-17.5) gm/dL Hct 30.0 L (39.0-53.0) % MCHC 30.2 L (31.0-37.0) g/dL RDW 19.2 H (11.5-15.5) % Lymphocytes # 0.4 L (1.0-4.8) k/uL BUN 95 H (9-20) mg/dL Creatinine 3.02 H (0.66-1.25) mg/dL Glucose 103 H (74-99) mg/dL POC Glucose (mg/dL) 118 H (70-110) mg/dL Calcium 7.9 L (8.4-10.2) mg/dL Assessment and Plan Assessment: Cardiac arrest x 2 Severe coronary artery disease and acute non-ST elevation myocardial infarction Acute hypoxic respiratory failure secondary to above Cardiogenic shock Acute systolic congestive heart failure Anoxic encephalopathy, recovered Acute kidney injury, received hemodialysis x 2 last 1 on 12/15/2023. Only 400 mls removed each time. Plan is for permacath placement today History of underlying coronary artery disease with previous stent of LAD September 22, 2022, complicated by acute thrombosis requiring angioplasty and thrombectomy repeat cardiac catheterization 09/12 showed totally occluded LAD with distal left main disease felt to be poor candidate for surgical intervention Severe ischemic cardiomyopathy and LV dysfunction with ejection fraction of 35 to 40% History of CVA History of medical debility and multiple comorbidities Type 2 diabetes Dyslipidemia Plan: The patient was seen and evaluated KUB, labs and medications reviewed Stable and on 3 L nasal cannula Remains on dobutamine drip Permacath placed Initiated on a chopped diet We will continue to follow I have personally seen and examined the patient, performed the documentation and the assessment and plan as written. Number of minutes spent on the visit: 10.
[2023-12-25 11:02] LABS: Glucose,Whole Blood 134 mg/dL (70-110)
[2023-12-25 12:13] VITALS: BMI 33.0
--- NOTE | 2023-12-25 13:46 | P.PCN ---
Date of Procedure: 12/25/23 Procedure(s) Performed: Dobbhoff insertion Condition: stable Disposition: no change Indications for Procedure: Enteral feeding Description of Procedure: Patient's right nostril was used as an insertion site for Dobbhoff tube with video guidance. The Dobbhoff tube was advanced through the nostril down into the esophagus, into the stomach, and finally into the small bowel. Placement was confirmed by video, no tracheal rings were identified throughout the procedure, stomach rugae were identified. The tube was inserted to a depth of 70 cm, placement was again verified by video, confirmed by auscultation of the epigastrium, and finally chest x-ray was ordered for final verification. Clarice Foster, ICU charge nurse, and myself were present for the duration of the procedure.
--- NOTE | 2023-12-25 14:11 | XR ---
EXAMINATION TYPE: XR chest 1V portable DATE OF EXAM: 12/25/2023 1:46 PM CLINICAL INDICATION:Male, 83 years old with history of locate dobhoff catheter placement; H COMPARISON: Chest radiographs from 12/24/2023 TECHNIQUE: XR chest 1V portable Frontal view of the chest. FINDINGS: Lungs/Pleura: No evidence of focal consolidation or pneumothorax. Blunting of the costophrenic angles is present. Pulmonary vascularity: Unremarkable. Heart/mediastinum: Cardiomediastinal silhouette is enlarged and stable. Musculoskeletal: No acute osseous pathology. Other findings: None Lines/Tubes: Nasogastric tube with its distal tip projecting out of the [id number] inferiorly. Right internal jugular central venous catheter with distal tip at the cavoatrial junction. IMPRESSION: 1. Dobbhoff distal tip projects out of the [id number]. It does appear to cross midline. Consider further evaluation with abdominal radiograph. 2. Bilateral pleural effusions.
--- NOTE | 2023-12-25 15:08 | P.PN ---
Subjective Progress Note Date: 12/25/23 Principal diagnosis: Reason for follow-up is fever possible pneumonia Patient is a 83-year-old male past medical history significant for diabetes mellitus hypertension HI CVA TIA presenting to the hospital with chest pain shortness of breath also noticed to be febrile prompting this consultation. Patient did have worsening of his respiratory status and also cardiac arrest with the patient has been intubated and transferred to the ICU patient subsequently has been extubated On today's evaluation that is 12/25/2023,the patient remains to be afebrile, patient is on 3 L nasal cannula supplemental oxygen, has been complaining of some central/epigastric pain no vomiting diarrhea at the change reported by the nursing staff. Patient white count 6.2, creatinine 3.02 Objective - Vital Signs Vital signs: Vital Signs Temp 97.8 F 12/25/23 04:00 Pulse 67 12/25/23 14:00 Resp 18 12/25/23 14:00 BP 99/59 12/25/23 14:00 Pulse Ox 94 L 12/25/23 14:00 FiO2 35 12/25/23 08:04 Intake & Output 12/24/23 12/25/23 12/25/23 18:59 06:59 18:59 Intake Total 498.258 179 5804.228 Output Total 715 560 215 Balance -216.203 09 6996.228 Weight 87.3 kg 87.3 kg Intake: IV 143 36 20 Invasive Line 4 90 Invasive Line 7 20 30 20 Pressure bag 33 6 Intake, IV Titration 155.676 137.228 Amount DOBUTamine DRIP 500 mg In 155.676 137.228 Dextrose/Water 1 250ml. bag @ 2.5 MCG/KG/MIN 6. 473 mls/hr IV .Q24H [facility] Rx#:[id number] Oral [phone] Output: Urine 715 560 215 Other: Voiding Method Indwelling Catheter Indwelling Catheter Indwelling Catheter # Bowel Movements 0 0 0 ABP, PAP, CO, CI - Last Documented Arterial Blood Pressure 111/59 - Exam GENERAL DESCRIPTION: An elderly male lying in bed in no distress RESPIRATORY SYSTEM: Unlabored breathing , decreased breath sounds at bases HEART: S1 S2 regular rate and rhythm , ABDOMEN: Soft , no tenderness EXTREMITIES: No edema feet - Labs CBC & Chem 7: 12/25/23 05:32 12/25/23 05:32 Labs: Abnormal Lab Results - Last 24 Hours (Table) 12/24/23 12/24/23 12/25/23 Range/Units 16:50 21:38 05:32 RBC 3.14 L (4.30-5.90) m/uL Hgb 9.1 L (13.0-17.5) gm/dL Hct 30.0 L (39.0-53.0) % MCHC 30.2 L (31.0-37.0) g/dL RDW 19.2 H (11.5-15.5) % Lymphocytes # 0.4 L (1.0-4.8) k/uL BUN (9-20) mg/dL Creatinine (0.66-1.25) mg/dL Glucose (74-99) mg/dL POC Glucose (mg/dL) 129 H 118 H (70-110) mg/dL Calcium (8.4-10.2) mg/dL 12/25/23 12/25/23 Range/Units 05:32 11:01 RBC (4.30-5.90) m/uL Hgb (13.0-17.5) gm/dL Hct (39.0-53.0) % MCHC (31.0-37.0) g/dL RDW (11.5-15.5) % Lymphocytes # (1.0-4.8) k/uL BUN 95 H (9-20) mg/dL Creatinine 3.02 H (0.66-1.25) mg/dL Glucose 103 H (74-99) mg/dL POC Glucose (mg/dL) 134 H (70-110) mg/dL Calcium 7.9 L (8.4-10.2) mg/dL Assessment and Plan (1) Fever and chills Current Visit: Yes Status: Acute Code(s): R50.9 - FEVER, UNSPECIFIED SNOMED Code(s): 635287073 (2) Sepsis Current Visit: Yes Status: Acute Code(s): A41.9 - SEPSIS, UNSPECIFIED ORGANISM SNOMED Code(s): 00482232 (3) Aspiration pneumonia Current Visit: Yes Status: Acute Code(s): J69.0 - PNEUMONITIS DUE TO INHALATION OF FOOD AND VOMIT SNOMED Code(s): 799966697 (4) Thrush Current Visit: Yes Status: Acute Code(s): B37.0 - CANDIDAL STOMATITIS SNOMED Code(s): 29828320 Plan: 1patient did have cardiac arrest and admission to the ICU and for concern possible aspiration, blood and sputum culture so far negative, the patient subsequently has been extubated and has completed course of antibiotic therapy 2-patient did have evidence of oral thrush we will add nystatin swish and swallow Dobbhoff has been placed for nutrition but the patient has a past swallow evaluation per the nursing staff Dictation was produced using [employer] dictation software. please excuse any grammatical, word or spelling errors. Time with Patient: Less than 30
[2023-12-25 16:47] LABS: Glucose,Whole Blood 131 mg/dL (70-110)
[2023-12-25] MEDS: NYSTATIN 100,000 UNIT/ML SUSP 500,000 UNIT/5 ML CUP PO SCH (16:57)
[2023-12-25 20:07] LABS: Glucose,Whole Blood 75 mg/dL (70-110)
--- NOTE | 2023-12-25 21:45 | PN ---
PROGRESS NOTE SUBJECTIVE: An 83-year-old gentleman with complex medical problems including CAD, status post angioplasty, ischemic cardiomyopathy, systolic heart failure, respiratory failure, and chronic renal failure. He is currently on dobutamine. No longer on pressors, stable hemodynamically, and looks more alert and awake. OBJECTIVE: VITAL SIGNS: Heart rate is 67 beats per minute, blood pressure is 111/58, respiratory rate is 18. CHEST: Reveals diminished air entry at the bases. HEART: Reveals first and second heart sounds. No gallop. Has a systolic murmur at the left lower sternal border. ABDOMEN: Soft. EXTREMITIES: Reveals moderate edema. Peripheral pulses are felt. The patient has a Leeroy catheter in place for dialysis if necessary. LABORATORY DATA: His BUN is 95 and creatinine is 3. ASSESSMENT: 1. Acute on chronic renal failure. 2. Chronic systolic heart failure. 3. Coronary artery disease, status post angioplasty. 4. Respiratory failure. PLAN: I am going to stop the dobutamine. Continue his medications. MMODL / IJN: [id number] /
[2023-12-25 23:00] LABS: Glucose,Whole Blood 58 mg/dL (70-110)
[2023-12-25] MEDS ORDERED: ATROPINE SULFATE 0.1 MG/ML 10ML SYRINGE ONE (23:05)
[2023-12-25] MEDS ORDERED: EPINEPHrine 10 ML SYRINGE (0.1 MG/ML) ONE (23:05)
[2023-12-25] MEDS ORDERED: SODIUM BICARB 8.4% 50 ML SYR (1 MEQ/ML) ONE (23:05)
[2023-12-25 23:18] LABS: Glucose,Whole Blood 199 mg/dL (70-110)
[2023-12-25] MEDS: NOREPINEPHRINE 4 MG in SODIUM CHLORIDE 0.9% 250 ML IV SCH (23:20)
[2023-12-25 23:34] LABS: Glucose,Whole Blood 168 mg/dL (70-110)
[2023-12-25] MEDS: SODIUM CHLORIDE 0.9% 500 ML 500 ML IV ONE (23:35)
[2023-12-25] MEDS: SODIUM CHLORIDE 0.9% 1,000 ML IV ONE (23:37)
[2023-12-25] MEDS ORDERED: IPRATROPIUM-ALBUTEROL 3 ML NEB INHALATION PRN (23:50)
[2023-12-26] MEDS: VASOPRESSIN 60 UNIT in SODIUM CHLORIDE 0.9% 150 ML IV SCH
--- NOTE | 2023-12-26 00:06 | XR ---
EXAMINATION TYPE: XR chest 1V portable DATE OF EXAM: 12/25/2023 CLINICAL HISTORY: Postintubation. TECHNIQUE: Single AP portable supine view of the chest is obtained. COMPARISON: Chest x-ray from earlier today FINDINGS: There is new endotracheal tube at level of the adolfo, advise pulling back roughly 4 cm to be more ideal position. Dobbhoff feeding tube redemonstrated. Stable right internal jugular large bore catheter. Persistent m oderate size right greater than left pleural effusions with central vascular congestion. Persistent m ild cardiomegaly. Osseous structures are intact. IMPRESSION: 1. There is new Endotracheal tube at level of adolfo, advise pulling back 4.0 cm to be in more ideal position. 2. Persistent mild cardiomegaly with central vascular congestion and moderate-sized right greater neri n left pleural effusions consistent with CHF exacerbation/fluid overload state.
[2023-12-26 00:08] LABS: ABG Base Excess -1.2 mmol/L; ABG HCO3 25 mmol/L (21-25); ABG Oxygen Saturation 96.9 % (94-97); ABG PCO2 47 mmHg (35-45); ABG PH 7.33 (7.35-7.45); ABG PO2 95 mmHg (83-108); ABG TCO2 26 mmol/L (19-24); Allen Test Performed? Yes
--- NOTE | 2023-12-26 00:08 | XR ---
EXAMINATION TYPE: XR KUB portable DATE OF EXAM: 12/25/2023 CLINICAL HISTORY: Distended abdomen/post tube placement TECHNIQUE: 2 portable supine KUB images of the abdomen are obtained. COMPARISON: Prior abdominal x-ray earlier today. FINDINGS: New Dobbhoff feeding catheter extends into the right upper abdomen likely first portion of duodenum. Contrast from recent barium study redemonstrated in nondistended proximal to mid colon. Nir e paucity of bowel gas redemonstrated. Multilevel spurring in the thoracolumbar spine again seen. Deg enerative changes of both hips are present. There is cardiomegaly with small to moderate-sized bilate ral pleural effusions noted. IMPRESSION: As above.
[2023-12-26 00:22] LABS: Anisocytosis Slight; Basophils # (A) 0.1 k/uL (0-0.2); Basophils % (A) 0 %; Eosinophils # (A) 0.1 k/uL (0-0.7); Eosinophils % (A) 1 %; HGB 8.9 gm/dL (13.0-17.5); Hypochromasia Marked; Lymphocytes # (A) 4.1 k/uL (1.0-4.8); Lymphocytes % (A) 37 %; MCHC 30.7 g/dL (31.0-37.0); MCV 97.6 fL (80.0-100.0); Macrocytosis Slight; Mean Platelet Volume 8.9; Monocytes # (A) 0.4 k/uL (0-1.0); Monocytes % (A) 3 %; Neutrophils # (A) 6.3 k/uL (1.3-7.7); Neutrophils % (A) 56 %; Platelet Count 282 k/uL (150-450); RBC 2.97 m/uL (4.30-5.90); WBC 11.2 k/uL (3.8-10.6)
[2023-12-26 00:27] LABS: ALT 38 U/L (4-49); AST 65 U/L (17-59); African American GFR (CKD) 20 (>60 ml/min/1.73 sqM); Albumin 2.1 g/dL (3.5-5.0); Alkaline Phosphatase 148 U/L (38-126); Anion Gap 11 mmol/L; Blood Urea Nitrogen 97 mg/dL (9-20); Calcium 6.6 mg/dL (8.4-10.2); Carbon Dioxide 27 mmol/L (22-30); Chloride 102 mmol/L (98-107); Glucose 242 mg/dL (74-99); Non-African American GFR(CKD) 17 (>60 ml/min/1.73 sqM); Potassium 3.9 mmol/L (3.5-5.1); Sodium 140 mmol/L (137-145); Total Bilirubin 0.6 mg/dL (0.2-1.3); Total Protein 4.3 g/dL (6.3-8.2)
[2023-12-26] MEDS: SODIUM CHLORIDE 0.9% 500 ML 500 ML IV ONE (00:30)
[2023-12-26 00:31] LABS: INR 1.2 (<1.2); Partial Thromboplastin Time 24.1 sec (22.0-30.0)
[2023-12-26] MEDS: propofoL 100 ML IV ONE (00:41)
[2023-12-26] MEDS: SODIUM BICARB 8.4% 50 ML SYR (1 MEQ/ML) ONE (00:42)
[2023-12-26 01:21] VITALS: BP 59/41
--- NOTE | 2023-12-26 01:25 | XR ---
EXAMINATION TYPE: XR chest 1V portable DATE OF EXAM: 12/26/2023 CLINICAL HISTORY: OG tube placement. TECHNIQUE: Single AP portable semiupright view of the chest is obtained. COMPARISON: Chest x-ray from one day earlier FINDINGS: Endotracheal tube now terminates at the aortic knob level approximately 3 cm above the car monty in better position. Stable right internal jugular large bore dialysis catheter. Interval removal of Dobbhoff feeding tube with new orogastric tube. [id number] does not center on the upper abdomen making evaluation of tip suboptimal. Cannot confirm tip is below diaphragm. Advise upper abdominal r adiograph. Persistent small to moderate-sized bilateral pleural effusions and cardiomegaly with central vascular congestion. Osseous structures are intact. IMPRESSION: As above.
[2023-12-26] MEDS: SODIUM CHLORIDE 0.9% 1,000 ML IV SCH (04:00)
--- NOTE | 2023-12-26 04:23 | P.EN ---
CODE BLUE event Patient went into asystole patient was coded following ACLS protocol for about 15 to 70 minutes he was showing asystole rhythm patient did not receive any shocks he was given multiple doses of epi and bicarb eventually we achieved ROSC patient was intubated during CPR chest x-ray confirmed placement of the tube recommendations is to pull the tube manage and reassess Patient went through another cardiac arrest with asystole and about 30 minutes this time he was coded following ACLS protocol with CPR for about 2 to 4 minutes then ROSC was achieved. I discontinued IV Lasix Patient started on Levophed and vasopressin was added later. Patient was intubated and started on propofol for sedation. give patient 2.5 L over 3 hours then continue with 100 cc/h of normal saline Patient showed some improvement in his blood pressure and started making urine output I discussed the case with patient family and patient was made DNR but to continue all medical treatment measures otherwise I spent 40 minutes in critical care time in the care of this patient not counting procedures
[2023-12-26 05:49] LABS: Anisocytosis Slight; Basophils % (A) 0 %; Eosinophils # (A) 0.1 k/uL (0-0.7); Eosinophils % (A) 1 %; HCT 32.5 % (39.0-53.0); HGB 9.7 gm/dL (13.0-17.5); Hypochromasia Moderate; Lymphocytes # (A) 0.7 k/uL (1.0-4.8); Lymphocytes % (A) 8 %; MCH 28.5 pg (25.0-35.0); MCHC 29.9 g/dL (31.0-37.0); MCV 95.2 fL (80.0-100.0); Macrocytosis Slight; Mean Platelet Volume 8.6; Monocytes # (A) 0.4 k/uL (0-1.0); Monocytes % (A) 4 %; Neutrophils # (A) 8.3 k/uL (1.3-7.7); Neutrophils % (A) 87 %; Platelet Count 382 k/uL (150-450); RBC 3.41 m/uL (4.30-5.90); RDW 18.8 % (11.5-15.5); WBC 9.6 k/uL (3.8-10.6)
[2023-12-26 06:07] LABS: African American GFR (CKD) 21 (>60 ml/min/1.73 sqM); Anion Gap 10 mmol/L; Blood Urea Nitrogen 93 mg/dL (9-20); Calcium 7.2 mg/dL (8.4-10.2); Carbon Dioxide 24 mmol/L (22-30); Chloride 105 mmol/L (98-107); Glucose 103 mg/dL (74-99); Non-African American GFR(CKD) 18 (>60 ml/min/1.73 sqM); Phosphorus 4.2 mg/dL (2.5-4.5); Potassium 3.4 mmol/L (3.5-5.1); Sodium 139 mmol/L (137-145)
[2023-12-26 06:21] LABS: Glucose,Whole Blood 106 mg/dL (70-110)
[2023-12-26 06:25] LABS: ABG Base Excess 3.7 mmol/L; ABG HCO3 25 mmol/L (21-25); ABG Oxygen Saturation 99.5 % (94-97); ABG PCO2 27 mmHg (35-45); ABG PO2 194 mmHg (83-108); ABG TCO2 26 mmol/L (19-24); Allen Test Performed? Yes
[2023-12-26 06:27] LABS: ABG PH 7.59 (7.35-7.45)
--- NOTE | 2023-12-26 07:49 | XR ---
EXAMINATION TYPE: XR chest 1V portable DATE OF EXAM: 12/26/2023 COMPARISON: 12/26/2023 HISTORY: SOB, Follow Up FINDINGS: Indwelling tubes and catheters are unchanged. No change in scattered infiltrates. Stable appearance of the cardio-mediastinal structures at this time. Pleural effusion unchanged. IMPRESSION: 1. Stable portable chest. Clinical correlation and follow up until resolution is recommended.
[2023-12-26] MEDS: CHLORHEXIDINE GLUCONATE 15 ML CUP MUCOUS MEM SCH (08:26)
[2023-12-26] MEDS: POTASSIUM BICARBONATE/CIT AC 20 MEQ TABLET.EFF PO ONE (08:26)
[2023-12-26] MEDS: CISATRACURIUM 2 MG/ML 5 ML VIAL IV ONE (09:47)
[2023-12-26 10:14] VITALS: TEMP 97.4
--- NOTE | 2023-12-26 10:15 | PCN ---
PROCEDURE NOTE PULMONARY/CRITICAL CARE PROCEDURE NOTE: PROCEDURE PERFORMED: Left internal jugular triple-lumen catheter. PREOPERATIVE DIAGNOSIS: Hypotension, administration of fluids, administration of pressors. POSTOPERATIVE DIAGNOSIS: Hypotension, administration of fluids, administration of pressors. RELINER: Dr. Alexis. FIRST CENTRAL STERILE TECHNICIAN: Dr. April Dodd. TRIPLE LUMEN CATHETER PLACEMENT: Indication: Hemodynamic monitoring/Intravenous access. A time-out was completed verifying correct patient, procedure, site, positioning, and implant(s) or special equipment if applicable. The patient was placed in a dependent position appropriate for triple lumen catheter placement based on the vein to be cannulated. The patient's left shoulder or left neck or left groin was prepped and draped in sterile fashion. 1% Lidocaine was used to anesthetize the surrounding skin area. A triple lumen 9F Cordis catheter was introduced into the left subclavian or internal jugular or common femoral vein using Seldinger technique. The catheter was threaded smoothly over the guide wire and appropriate blood return was obtained. Each lumen of the catheter was evacuated of air and flushed with sterile saline. The catheter was then sutured in place to the skin and a sterile dressing applied. Perfusion to the extremity distal to the point of catheter insertion was checked and found to be adequate. We used the left internal jugular vein via the posterior approach. Good blood return from all 3 ports. The patient tolerated the procedure well. There was no complication. Chest x-ray was ordered. The catheter was seen at the junction of the superior vena cava right atrium. A sterile dressing was applied after the patient's catheter was sutured in place. Again, no major complications or issues. MMODL / IJN: [id number] /
--- NOTE | 2023-12-26 10:33 | XR ---
EXAMINATION TYPE: XR chest 1V portable DATE OF EXAM: 12/26/2023 HISTORY: Shortness of breath. COMPARISON: 12/26/2023 TECHNIQUE: Single view of the chest is submitted. FINDINGS: Endotracheal tube is 2.5 cm from the adolfo. NG tube at the GE junction and should be advanced. Large bore central venous line unchanged in position. There is cardiomegaly with perihilar infiltrates as well as right greater than left pleural effusions . Correlate for pneumonia however underlying congestive failure is difficult to exclude. Hilar and mediastinal structures are within normal limits. Degenerative changes are seen of the dorsal spine. IMPRESSION: 1. There is cardiomegaly with perihilar infiltrates as well as right greater than left pleural effus ions. Correlate for pneumonia however underlying congestive failure is difficult to exclude. 2. Advance NG tube.
--- NOTE | 2023-12-26 11:11 | P.PN ---
Subjective Progress Note Date: 12/26/23 83-year-old male patient who sustained a cardiac yesterday at 2033 and following that the patient was moved to the intensive care unit. The patient was found in asystole. He received CPR based on ACLS protocol. Initial downtime was around 25 to 30 minutes and the patient received 4 rounds of epinephrine and CPR. During the process the patient was also found to be in V-fib and was defibrillated. He was brought into the intensive care unit where he had another code at 2106 and the second code was brief. He was placed on pressors. He is already intubated on mechanical ventilator.. This morning, the patient is on propofol which is running at 50 mcg/kg/min. He is hypotensive and is on norepinephrine 0.18 micrograms per kilogram per minute. He was a difficult IV access. Unable to insert an arterial line. The triple-lumen catheter was inserted in the right femoral vein for hemodynamic support and pressors. At this point in time, he is on assist-control mode at a rate of 20, tidal volume of 400, FiO2 of 70% with a PEEP of 5. The chest x-ray is showing adequate positioning of the ET tube. Orotracheal tube was initially in the right mainstem that was pulled out. No change in the bilateral opacities seen. The patient also has a moderate-sized right-sided pleural effusion along with pulm vascular congestion. Blood work from today shows a WBC count 9.9 with a hemoglobin 10.9 and a platelet count of 147. pH is 7.43 with a pCO2 of 34 and a pO2 of 84. Sodium levels at 127 and potassium levels at 4.3 with a serum bicarb of 17 and the BUN is at 80 with a creatinine of 4.2 as the patient has an acute on top of chronic kidney injury. This could have been also related to contrast as the patient's creatinine was gradually going up following his cardiac procedures. Troponin currently is at 3.07 and it is uptrending again post cardiac arrest. Cardiology was informed of those changes. No plans for any further intervention. In terms of his cardiac history, the patient is followed by Dr. Nelson who presents with symptoms of chest discomfort. He has a known history of CAD underwent stenting of the LAD in September [address] Remy and subsequently was readmitted about a week after with acute thrombosis and underwent angioplasty and thrombectomy. He underwent repeat cardiac catheterization in August and was found to have totally occluded LAD with distal left main disease but was felt to be a poor candidate for any surgical intervention. He presents with symptoms of chest discomfort and dyspnea at rest yesterday He usually has exertional angina pectoris with dyspnea on exertion. His activity is limited. He has evidence of cardiomyopathy with segmental wall motion abnormality consistent with his initial presentation with myocardial infarction.Patient is status attempted catheterization with Dr. Nelson on 12/09/2023. Dr. Nelson had difficulty obtaining access and his cardiac catheterization was canceled. He underwent repeat cardiac catheterization with Dr. Remy with PCI of left main and ramus. Patient was hypotensive during the procedure. Patient was reevaluated today on 12/14/2023, patient remains in the ICU, intubated and mechanically ventilated. Patient was initially admitted on 12/05 with unstable angina, chest pain, severe coronary artery disease, and he was never felt to be a candidate for any surgical intervention. He had chronically occluded ostial LAD and ischemic cardiomyopathy. In addition he had chronic kidney disease and diabetes. As noted above the patient had cardiac arrest x 2 remains intubated and mechanically ventilated, he is on assist-control rate of 20 tidal volume 400 FiO2 50% PEEP of 5 ABG showed a pO2 of 88 pCO2 35 pH of 7.41. Patient may have developed anoxic brain injury, hence neurology will be consulted. Patient required a right brachial arterial line placement today, and this was done uneventfully. Patient will be started today on tube feeding. Looking back at the patient's history, patient clearly has a significant cardiac history, on 12/11, patient had V-fib cardiac arrest x 2 and he had CPR at 1 time it was 20 minutes the second time was 8 minutes of CPR. Obviously we are quite concerned about the possibility of anoxic brain injury. Chest x-ray is showing evidence of pulmonary edema, underlying pneumonia is not entirely ruled out but felt to be less likely patient is requiring norepinephrine at 0.16 mcg/kg/min also requiring propofol at 40 mcg/kg/min, FiO2 was decreased down to 45% today. Renal functioning is continuing to worse, patient is not making much urine, and spite of giving him Lasix and Bumex renal replacement therapy will be initiated today. Dialysis catheter was placed this morning. WBC count today is 10.3 hemoglobin is 9.9 basic metabolic profile is normal except for sodium of 129, BUN is up to 88 creatinine 5.81 blood sugar is 272 Patient was reevaluated today on 12/15/2023, remains in the ICU, intubated and mechanically ventilated he is on assist-control rate of 20 tidal volume 400 FiO2 35% and PEEP of 5 ABG showed a pO2 of 77 pCO2 35 pH of 7.45, patient is undergoing hemodialysis this morning. Remains on amiodarone drip, propofol at 25 mcg/kg/min is also on norepinephrine drip at 0.14 mcg/kg/min remains empirically on Zosyn. Chest x-ray is consistent with diffuse pleuroparenchymal changes/pulmonary edema picture, possible ARDS but I believe that pulmonary edema is really cardiogenic in nature. Sibling has history of ischemic cardiomyopathy. CBC showed WBC of 13.7 hemoglobin 9.8. Basic metabolic profile is normal sodium is 130, BUN is 77 creatinine 4.50, again the patient will have hemodialysis today neurologically, the patient is not responding to any stimuli, being followed by neurology, and I honestly believe the patient has most likely severe anoxic brain injury. Off sedation yesterday, patient was opening his eyes only but no other responses noted Evaluated today on 12/16/2023, remains in the ICU, intubated and mechanically ventilated, on assist-control rate of 20 tidal volume 400 FiO2 35% PEEP of 5 ABG showed a pO2 of 72 pCO2 34 pH of 7.46. Patient is opening eyes only but no responses whatsoever except opening eyes. And no purposeful movement is noted. He is off sedation for the last 24 hours, still requiring norepinephrine at 0.09 mcg/kg/min remains on Zosyn empirically patient has a decent urine output of 50 to 100 cc/h chest x-ray continues to show evidence of pulmonary edema or possible aspiration pneumonia. Patient is being treated for both. I suspect clinically that this is more of pulmonary edema secondary to severe LV dysfunction. At any rate we will continue to keep the patient off sedation as long as tolerated to fully assess mental status, presently although we could get is patient opening his eyes only. WBC count is 13.2 hemoglobin 9.8. Basic metabolic profile is normal BUN is 57 creatinine 2.93, patient has been on hemodialysis since 12/13, his last dialysis was yesterday. Urine output is picking up slightly. Patient was reevaluated today on 12/17/2023, remains intubated but not sedated, patient is off propofol, patient is awake, follows simple instructions like squeezing hands, wiggling toes, and closing and opening eyes. Seems to be appropriate, hence I plan to give the patient today a trial of pressure support and CPAP. His ABG showed a pO2 of 90 pCO2 37 pH of 7.43, patient has improvement in his urine output, his last hemodialysis was on 12/14, and his urine output seems to be stable, continues to receive tube feeds, still requiring norepinephrine at 0.1 mcg/kg/min remains on Zosyn and remains intermittently on diuretics. Chest x-ray is showing diffuse pleural-parenchymal changes consistent with pulmonary edema and/or pneumonia. Patient is receiving treatment for both the last chest x-ray is showing improvement sputum cultures have been nondiagnostic, blood cultures have been negative. WBC count today is 14.3 hemoglobin is 9.9, basic metabolic profile is normal BUN is 67 creatinine 2.83 steadily improving over the last few days. Reevaluate today on 12/18/2023, patient was extubated yesterday, he is presently on BiPAP 14/5/35%. Patient remains on norepinephrine at 0.04 mcg/kg/min, he is off fluids at KVO, his last hemodialysis was 12/14, urine output is reasonable, patient may not require any more hemodialysis. Patient is to have a swallow ev aluation today, remains on Zosyn for presumptive aspiration pneumonia. At any rate patient tolerated the extubation well over the last 24 hours, but he remains marginal and I would like to continue to monitor the patient in the ICU for at least the next 24 to 48 hours. Chest x-ray continues to show diffuse pleural-parenchymal changes, suspicious for pulmonary edema or aspiration pneumonia but improving, CBC is relatively normal basic metabolic profile is normal BUN is 67 creatinine down to 2.51 Reevaluate today on 12/19/23, patient continues to tolerate extubation for the last 2 days, however still on BiPAP 14/5/35%, still requiring norepinephrine at 0.04 mcg/kg/min. Chest x-ray is showing worsening right-sided pleural effusion and right airspace disease, I am recommending more diuretics on this patient, patient remains on antibiotics empirically. The findings on the chest x-ray is a bit concerning, clinically the patient is doing well, and no major setback clinically compared to yesterday WBC count is 13.3 hemoglobin is 9.8 basic metabolic profile is normal BUN is 174 creatinine 2.34 blood cultures and sputum cultures have been negative/nondiagnostic. Patient was today on 12/20/2023, patient was extubated now 3 days ago, continues to tolerate the extubation well. However his overall clinical status remains marginal at best. Patient is not quite ready to be transferred out of the ICU mostly because he is still requiring norepinephrine for low blood pressure, and he is now on Lasix drip for what seems to be a picture of congestive heart failure secondary to ischemic cardiomyopathy and LV dysfunction. His ejection fraction is no more than 25%. Yesterday I recommended Lasix because he was developing significant right-sided pleural effusion and that seems to be impr griffin today. Patient is now on 3 L nasal cannula, intermittently on BiPAP 14/5/35%. Patient had a negative balance of 2580 over the last 24 hours since he was placed on Lasix drip. Today I am recommending dobutamine at 2.5 mcg/kg/min, on a trial basis considering that the patient has severe LV dys function, and may taper the norepinephrine down if he does better with dobutamine. Diet will be advanced, he is now on pured diet. Still concerned about potential aspiration. And this was recommended by speech therapy. Antibiotics salguero patient remains on Zosyn empirically. Chest x-ray continues to show small right-sided pleural effusion and bibasilar infiltrates/atelectasis/pneumonia suspect the findings are also findings of congestive heart failure. Systolic in nature WBC count today is 9.3 hemoglobin 9.7. Basic metabolic profile is normal renal profile is slightly worse today BUN of 73 creatinine 2.49, nonetheless the patient is not oliguric. And he is responding well to Lasix drip The patient is seen today December 21, 2023 in follow-up in the intensive care unit. He is currently resting in bed. Awake and alert in no acute distress. He was extubated back on December 17, 2023. He is currently maintaining good O2 saturations in the 90s on 3 L/min per nasal cannula. Chest x-ray shows similar cardiomegaly with bilateral pleural effusion and associated atelectasis. Cultures revealed no growth. Sputum culture revealed no growth. White count 8.5. Hemoglobin 9.2. Platelets 257. Sodium 142. Potassium 4.0. Bicarb 19. BUN 72. Creatinine 2.49. Glucose 197. He is continued on Lasix drip at 10 mg/h. Dobutamine at 2.5 mcg/kg/min. Norepinephrine at 6 mcg/min. He is an ticoagulated with Eliquis. He is currently in a -1 L balance. The patient is seen today December 22, 2023 in follow-up in the intensive care unit. He is currently awake and alert in no acute distress. Maintaining O2 saturations in the 90s on 3 L/min per nasal cannula. He did utilize BiPAP last night 14/5 and 35% FiO2. He is still requiring norepinephrine at 0.11 mcg/kg/min. Lasix at 10 mg/h. Dobutamine at 2.5 g/kg/min.. Platelets 334. Sodium 143. Potassium 3.8. Bicarb 23. BUN 81. Creatinine 2.47. Glucose 180. He remains in a positive balance today of 850 MLS. He is anticoagulated with Eliquis. Continue on DuoNeb ventilations, Pulmicort and Perforomist inhalations. Remains on Zaroxolyn. The patient is seen today December 23, 2023 in follow-up in the intensive care unit. He is awake and alert no acute distress. Sitting up in bed. He is maintaining good O2 saturations in the 90s on 3 L/min per nasal cannula. He did utilize BiPAP last night 14/5 and 30% FiO2. He is on normal saline at KVO. Still requiring a small amount of norepinephrine at 0.04 mcg/kg/min or 3.4 mcg/min. He is off the Lasix drip. He is off the dobutamine drip. He is on Lasix at 60 mg IV every 8 hours. Currently in a -500 mL balance. White count 10.0. Hemoglobin 9.6. Platelets 258. Sodium 143. Potassium 3.0. Bicarb 25. BUN 87. Creatinine 2.63. Glucose 141. Cultures revealed no growth. Sputum culture revealed no growth. He remains on bronchodilators. Anticoagulated with Eliquis. X-ray reveals similar findings with cardiomegaly and pulmonary vascular congestion and bilateral pleural effusions. The patient is seen today December 24, 2023 in follow-up in the intensive care unit. He is currently sitting up in bed. Awake and alert in no acute distress. He is currently on 3 L/min per nasal cannula. He did utilize BiPAP throughout the night 14/5 and 30% FiO2. He remains on dobutamine at 2.5 mcg/kg/min. Plan is for hemodialysis catheter placement today. He also needs a swallow evaluation. Chest x-ray shows similar findings with cardiomegaly and some pulmonary vascular congestion and bilateral pleural effusions. Blood cultures revealed no growth. Sputum culture revealed no growth. White count 8.3. Hemoglobin 9.3. Platelets 287. Sodium 143. Potassium 3.2. Bicarb 24. BUN 93. Creatinine 2.97. Glucose 99. He remains on bronchodilators. Remains on Lasix 80 mg every 8 hours. Currently in a -800 mL balance. The patient is seen today December 25, 2023 in follow-up in the intensive care unit. He is awake and alert in no acute distress. Sitting up in bed. Maintaining O2 saturations in the 90s on 3 L/min per nasal cannula. He did utilize BiPAP 14/5 and 35% throughout the night. He did have a hemodialysis catheter placed yesterday. No hemodialysis initiated thus far. He remains on dobutamine drip at 2.5 mcg/kg/min. KUB revealed no acute process. White count 6.2. Hemoglobin 9.1. Platelets 235. Sodium 140. Potassium 3.5. Bicarb 24. BUN 95. Creatinine 3.02. Glucose 106. He is continued on Lasix 80 mg IV every 8 hours. Continued on bronchodilators. The patient is seen today December 26, 2023 in follow-up in the intensive care unit. Unfortunately approximately 11 PM last evening the patient developed bradycardia and then asystole and received CPR for approximately 15 minutes with return of spontaneous circulation. He was intubated and placed on mechanical ventilator. At 2330 he went into PEA and had another 6 minutes of CPR with r eturn of spontaneous circulation. He remains intubated on the ventilator on assist-control mode at a rate of 16, tidal volume 450, FiO2 60% and a PEEP of 5. Reveal a PaO2 of 194, pCO2 of 27 and a pH of 7.59. That was on an FiO2 of 80%. He is sedated on propofol at 40 mcg/mg/min. He is requiring norepinephrine at 5 mcg/min. Vasopressin at 0.3 units/min. Blood cultures reveal no growth. Sputum culture revealing no growth. White count 9.6. Hemoglobin 9.7. Platelets 382. Sodium 139. Potassium 3.4. Bicarb 24. BUN 93. Creatinine 3.03. Glucose 103. Initial lactic acid 2.6. Currently 1.0. He is to receive hemodialysis this morning. He remains on bronchodilators, anticoagulated with Eliquis. He is now a DO NOT RESUSCITATE CODE STATUS per family request. Objective - Vital Signs Vital signs: Vital Signs Temp 97.4 F L 12/26/23 08:00 Pulse 61 12/26/23 10:00 Resp 14 12/26/23 10:00 BP 59/41 12/25/23 23:30 Pulse Ox 98 12/26/23 10:00 FiO2 60 12/26/23 08:32 Intake & Output 12/25/23 12/26/23 12/26/23 18:59 06:59 18:59 Intake Total 2984.808 7165.514 464.660 Output Total 275 715 365 Balance 674.500 7328.514 99.660 Weight 87.3 kg 86.3 kg Intake: IV 30 2374 129 .9 2300 120 Invasive Line 10 20 Invasive Line 7 30 30 Pressure bag 24 9 Intake, IV Titration 137.228 259.514 215.660 Amount DOBUTamine DRIP 500 mg In 137.228 Dextrose/Water 1 250ml. bag @ 2.5 MCG/KG/MIN 6. 473 mls/hr IV .Q24H YASEMIN Rx#:[id number] Norepinephrine 4 mg In 150.784 115.190 Sodium Chloride 0.9% 250 ml @ 0.03 MCG/KG/MIN 9. 978 mls/hr IV .Q24H YASEMIN Rx#:[id number] Vasopressin 60 unit In 9.2 Sodium Chloride 0.9% 150 ml @ 0.03 UNITS/MIN 4.59 mls/hr IV .Q24H YASEMIN Rx#: [id number] propofoL 1,000 mg In 108.730 91.270 Empty Bag 1 bag @ 15 MCG/ KG/MIN 7.857 mls/hr IV . [id number] YASEMIN Rx#:[id number] Oral 1090 Tube Feeding 20 Other 30 120 Output: Urine 275 715 365 Other: Voiding Method Indwelling Catheter Indwelling Catheter Indwelling Catheter # Bowel Movements 0 1 ABP, PAP, CO, CI - Last Documented Arterial Blood Pressure 124/58 - Exam GENERAL EXAM: Intubated, sedated 83-year-old male, on 60% FiO2 via mechanical ventilator, in no apparent distress. HEAD: Normocephalic. EYES: Sluggish reaction of pupils, equal size. NOSE: Clear with pink turbinates. THROAT: Oral endotracheal and gastric tube secured in place. No erythema or exudates. NECK: No masses, no JVD. CHEST: No chest wall deformity. LUNGS: Equal air entry with crackles in the bilateral bases. CVS: S1 and S2 normal with no audible murmur, regular rhythm. ABDOMEN: No hepatosplenomegaly, normal bowel sounds, no guarding or rigidity. SPINE: No scoliosis or deformity SKIN: No rashes CENTRAL NERVOUS SYSTEM: No focal deficits, tone is normal in all 4 extremities. EXTREMITIES: Right femoral temporary catheter in place. There is 1+ peripheral edema. No clubbing, no cyanosis. Peripheral pulses are intact. - Labs CBC & Chem 7: 12/26/23 05:15 12/26/23 05:15 Labs: Abnormal Lab Results - Last 24 Hours (Table) 12/25/23 12/25/23 12/25/23 Range/Units 11:01 16:45 22:59 WBC (3.8-10.6) k/uL RBC (4.30-5.90) m/uL Hgb (13.0-17.5) gm/dL Hct (39.0-53.0) % MCHC (31.0-37.0) g/dL RDW (11.5-15.5) % Neutrophils # (1.3-7.7) k/uL Lymphocytes # (1.0-4.8) k/uL PT (10.0-12.5) sec INR (<1.2) ABG pH (7.35-7.45) ABG pCO2 (35-45) mmHg ABG pO2 (83-108) mmHg ABG Total CO2 (19-24) mmol/L ABG O2 Saturation (94-97) % ABG Lactic Acid (0.5-1.6) mmol/L Potassium (3.5-5.1) mmol/L BUN (9-20) mg/dL Creatinine (0.66-1.25) mg/dL Glucose (74-99) mg/dL POC Glucose (mg/dL) 134 H 131 H 58 L (70-110) mg/dL Plasma Lactic Acid Mahesh (0.7-2.0) mmol/L Calcium (8.4-10.2) mg/dL AST (17-59) U/L Alkaline Phosphatase (38-126) U/L Troponin I (0.000-0.034) ng/mL Total Protein (6.3-8.2) g/dL Albumin (3.5-5.0) g/dL 12/25/23 12/25/23 12/25/23 Range/Units 23:16 23:33 23:41 WBC 11.2 H (3.8-10.6) k/uL RBC 2.97 L (4.30-5.90) m/uL Hgb 8.9 L (13.0-17.5) gm/dL Hct 29.0 L (39.0-53.0) % MCHC 30.7 L (31.0-37.0) g/dL RDW 19.0 H (11.5-15.5) % Neutrophils # (1.3-7.7) k/uL Lymphocytes # (1.0-4.8) k/uL PT (10.0-12.5) sec INR (<1.2) ABG pH (7.35-7.45) ABG pCO2 (35-45) mmHg ABG pO2 (83-108) mmHg ABG Total CO2 (19-24) mmol/L ABG O2 Saturation (94-97) % ABG Lactic Acid (0.5-1.6) mmol/L Potassium (3.5-5.1) mmol/L BUN (9-20) mg/dL Creatinine (0.66-1.25) mg/dL Glucose (74-99) mg/dL POC Glucose (mg/dL) 199 H 168 H (70-110) mg/dL Plasma Lactic Acid Mahesh (0.7-2.0) mmol/L Calcium (8.4-10.2) mg/dL AST (17-59) U/L Alkaline Phosphatase (38-126) U/L Troponin I (0.000-0.034) ng/mL Total Protein (6.3-8.2) g/dL Albumin (3.5-5.0) g/dL 12/25/23 12/25/23 12/25/23 Range/Units 23:41 23:41 23:41 WBC (3.8-10.6) k/uL RBC (4.30-5.90) m/uL Hgb (13.0-17.5) gm/dL Hct (39.0-53.0) % MCHC (31.0-37.0) g/dL RDW (11.5-15.5) % Neutrophils # (1.3-7.7) k/uL Lymphocytes # (1.0-4.8) k/uL PT 13.0 H (10.0-12.5) sec INR 1.2 H (<1.2) ABG pH (7.35-7.45) ABG pCO2 (35-45) mmHg ABG pO2 (83-108) mmHg ABG Total CO2 (19-24) mmol/L ABG O2 Saturation (94-97) % ABG Lactic Acid 7.2 H* (0.5-1.6) mmol/L Potassium (3.5-5.1) mmol/L BUN 97 H (9-20) mg/dL Creatinine 3.16 H (0.66-1.25) mg/dL Glucose 242 H (74-99) mg/dL POC Glucose (mg/dL) (70-110) mg/dL Plasma Lactic Acid Mahesh (0.7-2.0) mmol/L Calcium 6.6 L (8.4-10.2) mg/dL AST 65 H (17-59) U/L Alkaline Phosphatase 148 H (38-126) U/L Troponin I (0.000-0.034) ng/mL Total Protein 4.3 L (6.3-8.2) g/dL Albumin 2.1 L (3.5-5.0) g/dL 12/25/23 12/26/23 12/26/23 Range/Units 23:41 00:05 05:15 WBC (3.8-10.6) k/uL RBC 3.41 L (4.30-5.90) m/uL Hgb 9.7 L (13.0-17.5) gm/dL Hct 32.5 L (39.0-53.0) % MCHC 29.9 L (31.0-37.0) g/dL RDW 18.8 H (11.5-15.5) % Neutrophils # 8.3 H (1.3-7.7) k/uL Lymphocytes # 0.7 L (1.0-4.8) k/uL PT (10.0-12.5) sec INR (<1.2) ABG pH 7.33 L (7.35-7.45) ABG pCO2 47 H (35-45) mmHg ABG pO2 (83-108) mmHg ABG Total CO2 26 H (19-24) mmol/L ABG O2 Saturation (94-97) % ABG Lactic Acid (0.5-1.6) mmol/L Potassium (3.5-5.1) mmol/L BUN (9-20) mg/dL Creatinine (0.66-1.25) mg/dL Glucose (74-99) mg/dL POC Glucose (mg/dL) (70-110) mg/dL Plasma Lactic Acid Mahesh (0.7-2.0) mmol/L Calcium (8.4-10.2) mg/dL AST (17-59) U/L Alkaline Phosphatase (38-126) U/L Troponin I 1.190 H* (0.000-0.034) ng/mL Total Protein (6.3-8.2) g/dL Albumin (3.5-5.0) g/dL 12/26/23 12/26/23 12/26/23 Range/Units 05:15 05:15 06:25 WBC (3.8-10.6) k/uL RBC (4.30-5.90) m/uL Hgb (13.0-17.5) gm/dL Hct (39.0-53.0) % MCHC (31.0-37.0) g/dL RDW (11.5-15.5) % Neutrophils # (1.3-7.7) k/uL Lymphocytes # (1.0-4.8) k/uL PT (10.0-12.5) sec INR (<1.2) ABG pH 7.59 H* (7.35-7.45) ABG pCO2 27 L (35-45) mmHg ABG pO2 194 H (83-108) mmHg ABG Total CO2 26 H (19-24) mmol/L ABG O2 Saturation 99.5 H (94-97) % ABG Lactic Acid (0.5-1.6) mmol/L Potassium 3.4 L (3.5-5.1) mmol/L BUN 93 H (9-20) mg/dL Creatinine 3.03 H (0.66-1.25) mg/dL Glucose 103 H (74-99) mg/dL POC Glucose (mg/dL) (70-110) mg/dL Plasma Lactic Acid Mahesh 2.6 H* (0.7-2.0) mmol/L Calcium 7.2 L (8.4-10.2) mg/dL AST (17-59) U/L Alkaline Phosphatase (38-126) U/L Troponin I (0.000-0.034) ng/mL Total Protein (6.3-8.2) g/dL Albumin (3.5-5.0) g/dL Assessment and Plan Assessment: Cardiac arrest x 2. The patient ended up having a cardiac arrest again on 024 approximately 11 PM with bradycardia and asystole with 15 minutes of CPR and return of spontaneous circulation. He had another PEA arrest approximately 2330 with another 6 minutes of CPR. He is currently intubated on the mechanical ventilator. Severe coronary artery disease and acute non-ST elevation myocardial infarction Acute hypoxic respiratory failure secondary to above Cardiogenic shock Acute systolic congestive heart failure Anoxic encephalopathy, recovered Acute kidney injury, received hemodialysis x 2 last 1 on 12/15/2023. Only 400 mls removed each time. Plan is for permacath placement today History of underlying coronary artery disease with previous stent of LAD September 22, 2022, complicated by acute thrombosis requiring angioplasty and thrombectomy repeat cardiac catheterization 09/12 showed totally occluded LAD with distal left main disease felt to be poor candidate for surgical intervention Severe ischemic cardiomyopathy and LV dysfunction with ejection fraction of 35 to 40% History of CVA History of medical debility and multiple comorbidities Type 2 diabetes Dyslipidemia Plan: The patient was seen and evaluated Chest x-ray, ABGs, labs and medications reviewed Ventilator adjustments were made Plan to place a triple-lumen catheter Continue propofol Continued on norepinephrine Continue on vasopressin Titrate accordingly Plan for hemodialysis today Patient's overall prognosis is critical Family has made him a DNR CODE STATUS I have personally seen and examined the patient, performed the documentation and the assessment and plan as written. Number of minutes spent on the visit: 15.
[2023-12-26] MEDS: INSULIN ASPART (NovoLOG) 100 UNIT/ML VIAL SQ SCH (11:50)
[2023-12-26 12:10] VITALS: PULSE 58; RESP 12
--- NOTE | 2023-12-26 15:06 | PN ---
PROGRESS NOTE SUBJECTIVE: This is an 83-year-old gentleman with multivessel coronary artery disease, ischemic cardiomyopathy, and respiratory failure, who has been in the ICU for quite some time, was in renal failure and we were considering dialysis. Last night developed asystole. He was given epinephrine and was intubated and had been on the vent since. The patient had after his intubation another episode of cardiac arrest and had to be resuscitated. The patient is on Levophed and vasopressin and his code status has been changed to DNR. This morning, he is intubated, sedated on the vent. Prognosis guarded. OBJECTIVE: VITAL SIGNS: Heart rate is 58 beats per minute. CHEST: Reveals diminished air entry with occasional rhonchi. HEART: Reveals first and second heart sounds. Systolic murmur at the apex. ABDOMEN: Soft. EXTREMITIES: Reveals mild edema. LABORATORY DATA: His BUN is 93, creatinine is 3, and hemoglobin is 9.7. ASSESSMENT AND PLAN: 1. Status post cardiac arrest. 2. Vent requiring respiratory failure. 3. Coronary artery disease, status post angioplasty. 4. Ischemic cardiomyopathy. 5. Chronic systolic heart failure. Prognosis guarded. Continue current supportive care. MMODL / IJN: [id number] /
--- NOTE | 2023-12-26 15:42 | P.DS ---
Providers Date of admission: 12/06/23 10:03 Expected date of discharge: 12/26/23 Attending physician: José Miguel Galeano MD Consults: 12/06/23 10:03 Consult Physician Urgent Consulting Provider: Erwin Poon Consult Reason/Comments: Chest pain Do you want consulting provider notified?: Yes 12/08/23 10:49 Consult Physician Routine Consulting Provider: Elfego Espitia Consult Reason/Comments: fever Do you want consulting provider notified?: Yes 12/11/23 09:30 Consult Physician Routine Consulting Provider: Erwin Poon Consult Reason/Comments: Post Interventional Patient Do you want consulting provider notified?: Already Contacted 12/11/23 14:37 Consult Physician Routine Consulting Provider: Katie Barker Consult Reason/Comments: ZOEY Do you want consulting provider notified?: Yes 12/12/23 22:50 Consult Physician Urgent Consulting Provider: Anibal Gonzales Consult Reason/Comments: ICU management Do you want consulting provider notified?: Already Contacted 12/14/23 10:33 Consult Physician Routine Consulting Provider: Deng Alexis Consult Reason/Comments: AMS, cardiac arrest Do you want consulting provider notified?: Yes 12/23/23 11:33 Consult Physician Routine Consulting Provider: Bright Vides Consult Reason/Comments: IJ HD permacath placement, d/c temporary HD catheter Do you want consulting provider notified?: Yes Primary care physician: [facility] Hospital Course: NSTEMI Cardiogenic Shock Cardiac Arrest, Asystole, then VFib Paroxysmal Atrial Fibrillation Moderate Protein Calorie Malnutrition ZOEY on CKD: Systolic CHF exacerbation with right pleural effusion and pulmonary vascular congestion: Hypervolemic Hyponatremia, resolved Sepsis (resolved) secondary to Aspiration Pneumonia Diabetes mellitus with hyperglycemia: Chronic conditions: history of CVA, hypertension, BPH, hypothyroidism Hospital course: 83-year-old male with PMH of CAD, history of CVA, diabetes mellitus, chronic kidney disease, hypertension, BPH, hypothyroidism presents the ED for chest pain. In the ED, he underwent extensive evaluation. BP 98/61, HR 84, RR 20, T 102.6F, 100% on 1 LNC. CBC, coag panel and CMP was done significant for lymphocyte count of 0.5, sodium 1:30, bicarb 18, BUN 34, creatinine 1.8, glucose 184, calcium 8.2, alk phos 167. Magnesium 2.2. Troponin 0.028. Flu, RSV, COVID-19 negative. EKG showed sinus rhythm with left bundle branch block. Chest x-ray showed small right pleural effusion and pulmonary vascular congestion. Patient is admitted for chest pain, rule out acute coronary syndrome and cardiology consultation. Workup from previous admission was reviewed. Cardiac cath 09/04/23 showed 70-80% distal left main, 100% ostial LAD with collateral, 80-90% ostial PDA, 80% proximal OM1. He has been evaluated by CT surgery in the past deemed to be poor surgical candidate for revascularization. Echocardiogram 09/01/23 showed EF 35-40% with anteroseptal, anterior wall hypokinesia, mild aortic stenosis. His troponins uptrended and he was started on a heparin drip. Cardiology consulted, he underwent cardiac catheterization on 12/08 but was cancelled due to poor vascular access. He underwent repeat cardiac cath on 12/09 and PCI of left main and ramus. His renal function continued to worsen after cardiac cath. CODE BLUE was called on 12/11, noted to be in asystole and V-Fib requiring defibr illation, epinephrine, calcium chloride and sodium bicarb. ROSC was achieved and he was transferred to the ICU. He developed asystole again in the ICU requiring epinephrine and sodium bicarb. ROSC was once again achieved. Nephrology consulted, HD catheter placed and HD started on 12/13 and 12/14. Neurology consulted for anoxic encephalopathy, Brain CT (negative for acute pathology) and EEG (severe encephaopathy) ordered. He remained intubated and maintained on Levophed and Zosyn. He was extubated on 12/16 and transitioned to BiPAP and nasal cannula. Difficulties titrating off Levophed. Dobutamine drip added 12/19. Lasix drip started on 12/19 along with Metolazone. Completed course of Zosyn on 12/19. Lasix drip transitioned to IVP 12/21. 12/23 Patient was seen and examined. Reports some nausea but no vomiting. Dobumatine drip restarted overnight. Lasix drip switched to 60 mg IV TID. -800 cc fluid balance over the past 24H. CXR personally interpreted, ongoing vascular congestion with right pleural effusion and small left pleural effusion, however, right side has more consolidated appearance. 12/24 passed video swallow. Rec'd permacath on 12/23, central line pulled. 12/25 patient had another CODE BLUE overnight in which he was in asystole for 30 minutes, prior to ROSC. After the code, patient's family indicated that they would no longer want patient to be full code should he have another cardiac arrest, and patient's status was changed to DNR/deny. Today, during dialysis, patient was noted to go significantly hypotensive into the 30s over 20s, and subsequently 10:49. Plan - Discharge Summary Discharge Rx Participant: No New Discharge Prescriptions: No Action Tamsulosin HCl [Flomax] 0.4 mg PO BID Omeprazole [PriLOSEC] 20 mg PO DAILY Finasteride [Proscar] 5 mg PO DAILY glipiZIDE [Glucotrol] 20 mg PO AC-BID Aspirin [[place] Aspirin EC] 81 mg PO DAILY DULoxetine HCL [Cymbalta] 60 mg PO DAILY Levothyroxine Sodium [Synthroid] 25 mcg PO DAILY Ipratropium-Albuterol Nebulize [Duoneb 0.5 mg-3 mg/3 ml Soln] 3 ml INHALATION RT-QID cephALEXin [Keflex] 750 mg PO Q12HR Magnesium Oxide 400 mg PO BID Atorvastatin Calcium [Lipitor] 80 mg PO HS Insulin Glargine,Hum.rec.anlog [Insulin Glargine Solostar] 35 units SQ DAILY Sennosides/Docusate Sodium [Senna Plus 8.6-50 mg Tablet] 1 tab PO DAILY PRN PRN Reason: Constipation Carboxymethylcellulose Sodium [Thera Tears] 1 drop BOTH EYES QID Clopidogrel [Plavix] 75 mg PO DAILY #90 tab Nitroglycerin Sl Tabs [Nitrostat] 0.4 mg SL Q5M PRN PRN Reason: Chest Pain carvediloL [Coreg] 6.25 mg PO BID-W/MEALS #60 tab Furosemide [Lasix] 40 mg PO DAILY #30 tablet Empagliflozin [Jardiance] 25 mg PO DAILY Mv-Min/Folic/K1/Lycopen/Lutein [Centrum Silver Men Tablet] 1 tab PO DAILY Losartan [Cozaar] 12.5 mg PO DAILY 30 Days #15 tab Budesonide [Pulmicort] 1 mg INHALATION RT-BID Discharge Medication List Aspirin [[place] Aspirin EC] 81 mg PO DAILY 10/03/22 [History] Atorvastatin Calcium [Lipitor] 80 mg PO HS 10/03/22 [History] Carboxymethylcellulose Sodium [Thera Tears] 1 drop BOTH EYES QID 10/03/22 [History] Finasteride [Proscar] 5 mg PO DAILY 10/03/22 [History] Insulin Glargine,Hum.rec.anlog [Insulin Glargine Solostar] 35 units SQ DAILY 10/03/22 [History] Magnesium Oxide 400 mg PO BID 10/03/22 [History] Omeprazole [PriLOSEC] 20 mg PO DAILY 10/03/22 [History] Sennosides/Docusate Sodium [Senna Plus 8.6-50 mg Tablet] 1 tab PO DAILY PRN 10/03/22 [History] Tamsulosin HCl [Flomax] 0.4 mg PO BID 10/03/22 [History] glipiZIDE [Glucotrol] 20 mg PO AC-BID 10/03/22 [History] Clopidogrel [Plavix] 75 mg PO DAILY #90 tab 10/07/22 [Rx] Nitroglycerin Sl Tabs [Nitrostat] 0.4 mg SL Q5M PRN 11/05/22 [History] Furosemide [Lasix] 40 mg PO DAILY #30 tablet 11/08/22 [Rx] carvediloL [Coreg] 6.25 mg PO BID-W/MEALS #60 tab 11/08/22 [Rx] DULoxetine HCL [Cymbalta] 60 mg PO DAILY 08/30/23 [History] Empagliflozin [Jardiance] 25 mg PO DAILY 08/30/23 [History] Levothyroxine Sodium [Synthroid] 25 mcg PO DAILY 08/30/23 [History] Mv-Min/Folic/K1/Lycopen/Lutein [Centrum Silver Men Tablet] 1 tab PO DAILY 08/30/23 [History] Losartan [Cozaar] 12.5 mg PO DAILY 30 Days #15 tab 09/11/23 [Rx] Budesonide [Pulmicort] 1 mg INHALATION RT-BID 12/06/23 [History] Ipratropium-Albuterol Nebulize [Duoneb 0.5 mg-3 mg/3 ml Soln] 3 ml INHALATION RT-QID 12/06/23 [History] cephALEXin [Keflex] 750 mg PO Q12HR 12/06/23 [History] Follow up Appointment(s)/Referral(s): [facility] - [facility],Clinic [Primary Care Provider] - 1-2 days Discharge Disposition: - Preliminary Cause of Preliminary Cause of : Sepsis
--- NOTE | 2024-01-01 14:52 | P.PRCINT ---
Percutaneous Coronary Int. - Percutaneous Coronary Intervention Percutaneous Coronary Intervention: PROCEDURES PERFORMED: Left heart catheterization, bilateral coronary angiography, ultrasound guided arterial access, PCI left main into ramus with a 3.0 x 23mm Xience LUCY, post dilated with a 3.0mm NC balloon, kissing balloon angioplasty, IVUS ramus DATE OF PROCEDURE: 12/10/2023 INDICATION: Non-STEMI CONSENT:I have discussed the risks, benefits and alternative therapies for the above-mentioned procedure and for both sedation/analgesia as well as necessary blood product administration, if indicated, as they pertain to this patient. The patient has indicated understanding and acceptance of the risks and procedur es discussed. PROCEDURE: After the risks, benefits and alternatives of the above mentioned procedure explained in detail with the patient, informed consent was obtained. Patient was taken to the catheterization lab and prepped and draped in usual fashion. Ultrasound guidance was used to assess for arterial access. 1% lidocaine was used to anesthetize the right radial artery. A 6-[place] sheath was placed in the right ulnar artery using modified Seldinger technique and ultrasound guidance. Left coronary angiography was performed with a 5-[place] JL 3.5 catheter and right coronary angiography was performed with a 5-[place] AR2 catheter in various views. A 5-[place] AR2 catheter was inserted into the left ventricle and pressure measurements were obtained. The decision was made to perform iFR of the RCA. A 0.014 pressure wire was advanced through the ER to catheter into the proximal RCA normalized. He was then advanced into the mid RCA and was normal at 0.90. Decision was made to perform PCI of the left main into ramus. A 6-[place] CLS 3.5 catheter was easily engage the left main. A 0.014 BMW wire was advanced to the distal ramus as well as additional 0.014 wire into the circumflex. Predilation was performed with a 2.5 x 12 mm balloon. Intravascular ultrasound was performed which showed extensive disease and Extending into the left main. Patient did have hypotensive episodes during the procedure however this occurred even before intervention. PCI was performed of the left main into ramus using a 3.0 x 23 mm Xience LUCY. The stent was postdilated with a 3.0 NC balloon. Kissing balloon angioplasty was performed after rewiring the circumflex with 2.5 x 12 mm balloon and the circumflex and 3.0 x 12 mm balloon in the left main to LAD. Repeat intravascular ultrasound showed good stent apposition with no dissection. Limited contrast was used secondary to his CKD. Patient was hypotensive requiring intermittent vasopressors with limited sedation given. The right radial sheath was removed and a TR band was placed with hemostasis achieved. The patient tolerated the procedure well. Patient was transported back to the post catheterization holding area in stable condition. Conscious Sedation: Patient was monitored under the direct supervision of myself for conscious sedation using Versed and fentanyl for a total duration of 73 minutes HEMODYNAMICS: Ao: 85/49 LV: 90/15, LVEDP 21 LEFT MAIN: The left main is a large caliber vessel which trifurcates into the LAD, ramus and circumflex. There is diffuse approximately 70% stenosis of the left main. LEFT ANTERIOR DESCENDING CORONARY ARTERY: LAD is a large caliber vessel which wraps around to the apex. There is 100% ostial LAD stenosis. RAMUS: The ramus is a moderate caliber vessel with a proximal 60-70% stenosis LEFT CIRCUMFLEX CORONARY ARTERY: Left circumflex is a small caliber vessel. There is diffuse mild disease. There is a high OM1 branch which has a proximal 40-50% stenosis. RIGHT CORONARY ARTERY: The right coronary artery is a small caliber vessel which gives off a PDA and PLV branch and is the dominant vessel. There is a proximal PDA 60-70% stenosis. FINAL IMPRESSION: 1. CAD as described above 2. Elevated left sided filling pressures 3. S/p PCI left main into ramus with a 3.0 x 23mm Xience LUCY, post dilated with a 3.0mm NC balloon 4. Intraprocedural hypotension, may be related to sedation PLAN: 1. Aggressive risk factor modification per most recent ACC/AHA guidelines. 2. Continue dual antiplatelets with aspirin and Plavix for 12 months
== END 2023-12-26 13:46 | disposition expired | DRG 321 ==
LOC: EC 08:20 → 3SCARD 10:03 → 2SICU 12-12 20:58
PROVIDERS: ADMIT Student in an Organized Health Care Education/Training Program; ATTEND Student in an Organized Health Care Education/Training Program
PROC: 06HY33Z Insertion of Infusion Device into Lower Vein, Percutaneous Approach (ICD-10-PCS; 2023-12-09)
PROC: 4A023N7 Measurement of Cardiac Sampling and Pressure, Left Heart, Percutaneous Approach (ICD-10-PCS; principal; 2023-12-10 07:30)
PROC: B240ZZ3 Ultrasonography of Single Coronary Artery, Intravascular (ICD-10-PCS; principal; 2023-12-10 07:30)
PROC: 027034Z Dilation of Coronary Artery, One Artery with Drug-eluting Intraluminal Device, Percutaneous Approach (ICD-10-PCS; principal; 2023-12-10 07:30)
PROC: B2111ZZ Fluoroscopy of Multiple Coronary Arteries using Low Osmolar Contrast (ICD-10-PCS; principal; 2023-12-10 07:30)
PROC: 3E043XZ Introduction of Vasopressor into Central Vein, Percutaneous Approach (ICD-10-PCS; 2023-12-12)
PROC: 5A12012 Performance of Cardiac Output, Single, Manual (ICD-10-PCS; 2023-12-12)
PROC: 06HY33Z Insertion of Infusion Device into Lower Vein, Percutaneous Approach (ICD-10-PCS; 2023-12-12)
PROC: 5A1955Z Respiratory Ventilation, Greater than 96 Consecutive Hours (ICD-10-PCS; 2023-12-13)
PROC: 0BH17EZ Insertion of Endotracheal Airway into Trachea, Via Natural or Artificial Opening (ICD-10-PCS; 2023-12-13)
PROC: 02HV33Z Insertion of Infusion Device into Superior Vena Cava, Percutaneous Approach (ICD-10-PCS; 2023-12-14)
PROC: 5A1D70Z Performance of Urinary Filtration, Intermittent, Less than 6 Hours Per Day (ICD-10-PCS; 2023-12-14)
PROC: 4A133J1 Monitoring of Arterial Pulse, Peripheral, Percutaneous Approach (ICD-10-PCS; 2023-12-14)
PROC: 4A133B1 Monitoring of Arterial Pressure, Peripheral, Percutaneous Approach (ICD-10-PCS; 2023-12-14)
PROC: 03HY32Z Insertion of Monitoring Device into Upper Artery, Percutaneous Approach (ICD-10-PCS; 2023-12-14)
PROC: 3E0G76Z Introduction of Nutritional Substance into Upper GI, Via Natural or Artificial Opening (ICD-10-PCS; 2023-12-19)
PROC: 0DH67UZ Insertion of Feeding Device into Stomach, Via Natural or Artificial Opening (ICD-10-PCS; 2023-12-19)
PROC: 02HV33Z Insertion of Infusion Device into Superior Vena Cava, Percutaneous Approach (ICD-10-PCS; 2023-12-24)
PROC: 0YP Anatomical Regions, Lower Extremities, Removal (ICD-10-PCS; 2023-12-24)
PROC: 0BH17EZ Insertion of Endotracheal Airway into Trachea, Via Natural or Artificial Opening (ICD-10-PCS; 2023-12-26)
PROC: 5A1935Z Respiratory Ventilation, Less than 24 Consecutive Hours (ICD-10-PCS; 2023-12-26)
PROC: 02HV33Z Insertion of Infusion Device into Superior Vena Cava, Percutaneous Approach (ICD-10-PCS; 2023-12-26)
PROC: 5A12012 Performance of Cardiac Output, Single, Manual (ICD-10-PCS; 2023-12-26)
DX: I21.4 Non-ST elevation (NSTEMI) myocardial infarction (principal); A41.9 Sepsis, unspecified organism; J69.0 Pneumonitis due to inhalation of food and vomit; N17.0 Acute kidney failure with tubular necrosis; I50.23 Acute on chronic systolic (congestive) heart failure; J96.01 Acute respiratory failure with hypoxia; K85.90 Acute pancreatitis without necrosis or infection, unspecified; E44.0 Moderate protein-calorie malnutrition; B37.0 Candidal stomatitis; I13.0 Hypertensive heart and chronic kidney disease with heart failure and stage 1 through stage 4 chronic kidney disease, or unspecified chronic kidney disease; E87.1 Hypo-osmolality and hyponatremia; G93.1 Anoxic brain damage, not elsewhere classified; J98.11 Atelectasis; D63.1 Anemia in chronic kidney disease; E11.22 Type 2 diabetes mellitus with diabetic chronic kidney disease; Z66 Do not resuscitate; E86.1 Hypovolemia; I44.7 Left bundle-branch block, unspecified; I46.2 Cardiac arrest due to underlying cardiac condition; R57.0 Cardiogenic shock; Z68.32 Body mass index [BMI] 32.0-32.9, adult; I49.01 Ventricular fibrillation; E03.9 Hypothyroidism, unspecified; R34 Anuria and oliguria; I35.8 Other nonrheumatic aortic valve disorders; D72.819 Decreased white blood cell count, unspecified; N18.32 Chronic kidney disease, stage 3b; I25.5 Ischemic cardiomyopathy; Z71.3 Dietary counseling and surveillance; I25.10 Atherosclerotic heart disease of native coronary artery without angina pectoris; Z88.2 Allergy status to sulfonamides; Z79.4 Long term (current) use of insulin; Z79.84 Long term (current) use of oral hypoglycemic drugs; E78.5 Hyperlipidemia, unspecified; Z11.52 Encounter for screening for COVID-19; Z86.73 Personal history of transient ischemic attack (TIA), and cerebral infarction without residual deficits; N40.0 Benign prostatic hyperplasia without lower urinary tract symptoms; H91.90 Unspecified hearing loss, unspecified ear; I48.0 Paroxysmal atrial fibrillation; I25.2 Old myocardial infarction; N20.0 Calculus of kidney; E87.6 Hypokalemia; R74.01 Elevation of levels of liver transaminase levels; K21.9 Gastro-esophageal reflux disease without esophagitis; T50.8X5A Adverse effect of diagnostic agents, initial encounter; Z87.891 Personal history of nicotine dependence; Z79.01 Long term (current) use of anticoagulants; Z79.02 Long term (current) use of antithrombotics/antiplatelets; Z79.82 Long term (current) use of aspirin; Z79.890 Hormone replacement therapy; Z79.899 Other long term (current) drug therapy; Z82.49 Family history of ischemic heart disease and other diseases of the circulatory system; Z95.5 Presence of coronary angioplasty implant and graft; Z53.09 Procedure and treatment not carried out because of other contraindication
CPT/HCPCS: 36415; 36558; 36600; 70450; 71045; 71046; 74018; 74176; 74230; 76770; 76937; 77001; 80048; 80053; 80061; 81003; 82805; 83605; 83735; 83880; 83930; 83935; 84100; 84132; 84145; 84300; 84484; 85025; 85027; 85610; 85730; 86140; 86706; 87040; 87070; 87205; 87340; 87449; 87636; 90935; 92921; 92950; 92978; 93005; 93458; 93799; 94002; 94003; 94640; 94660; 94760; 95816; 96360; 99211; 99285